=== PATIENT | male | born 1955 | race Caucasian/White ===

== ENCOUNTER 2016-11-04 15:23 | Emergency (ER) | payer MEDICAID ==
--- NOTE | 2016-11-04 15:24 | EDPHY ---
H & P Time Seen by Provider: 11/04/16 15:23 Constitutional: Initial Vital Signs Temperature (C) 36.7 C 11/04/16 15:58 Heart Rate 80 11/04/16 15:58 Respiratory Rate 18 11/04/16 15:58 Blood Pressure 116/80 11/04/16 15:58 O2 Sat (%) 93 11/04/16 15:58 O2 Delivery Mode Room Air Allergies/Adverse Reactions: No Known Allergies Allergy (Verified 11/04/16 16:03) Home Medications: Medication Instructions Recorded Ibuprofen [Motrin (*)] 600 mg PO DAILY PRN 06/29/16 Sertraline HCl [Zoloft 100mg (*)] 100 mg PO DAILY 06/29/16 Medical Decision Making ED Course/Re-evaluation: CHIEF COMPLAINT: Alcohol intoxication. HISTORY OF PRESENT ILLNESS: The patient is a chronic alcoholic arriving by EMS for alcohol intoxication. Patient drinks on a daily basis and obtains whatever alcohol is available. Patient was found in his home lying in his own feces. Patient has had multiple ER visits over the last several years for alcohol- related concerns. Patient denies any injuries denies loss of consciousness denies any recent trauma. Patient denies co-ingestion. Patient denies suicidal or homicidal behavior. REVIEW OF SYSTEMS: A 10 point review of systems was performed and is negative with the exception of the elements mentioned in the history of present illness. PHYSICAL EXAM: General Appearance: Alert, well hydrated, appropriate, and non-toxic appearing. Head: Atraumatic without scalp tenderness or obvious injury Eyes: Pupils equal, round, reactive to light and accommodation, EOMI, no trauma , no injection. Ears: Clear bilaterally, no perforation, normal landmarks Nose: Atraumatic, no rhinorrhea, clear. Throat: There is no erythema or exudates, no lesions, normal tonsils, mucus membranes moist. Neck: Supple, 2+ carotid upstroke, nontender, no lymphadenopathy. Respiratory: No retractions, no distress, no wheezes, and no accessory muscle use. Lungs are clear to auscultation bilaterally. Cardiovascular: Regular rate and rhythm, no murmurs, rubs, or gallops. Bilateral carotid, radial, dorsalis pedis, and posterior tibial pulses intact. Good capillary refill all extremities. Gastrointestinal: Abdomen is soft, nontender, non-distended, no masses, no rebound, no guarding, no peritoneal signs. Musculoskeletal: Normal active ROM of all extremities, atraumatic. Neurological: Somnolent but easily awakened, responsive to questioning. The patient has normal DTRs and non-focal cranial nerves, motor, sensory, and cerebellar exam. Skin: No rashes, good turgor, no nodules on palpation. PAST MEDICAL HISTORY: Anxiety disorder, schizoaffective disorder, liver disease with ascites, Hep X+, alcohol and drug abuse, hypertension. SOCIAL HISTORY: Chronic alcohol abuse. Remote history of IV drug abuse. Lives in an apartment. MEDICAL DECISION MAKING: I serially examined this patient since the patient's arrival here in the emergency department. The patient continues to become more and more sober with each examination. I serially questioned the patient and the patient's story given initially has not changed. The patient still denies any trauma, any head injury, and any illicit drug use. At this point, the patient is walking the department freely and is clinically sober. We're discharging the patient in stable condition; he is able to ambulate appropriately. He declines our recommendation to proceed to the [facility]. Departure - Departure Clinical Impression: Alcohol intoxication Instructions: Abuse of Alcohol (ED) Additional Instructions: 1. Stop abusing alcohol. 2. Go directly to the [facility] if you wish to detox from alcohol. 3. Return to the Emergency Department if you experience seizure, confusion, tremors, feeling faint, or other serious concerns. Referrals: [facility] Detox 24 Hours [Outside] - As per Instructions Report Scribed for: Jacob Tomas Report Scribed by: Rosalina Rose Date of Report: 11/04/16 Time of Report: 15:26
[2016-11-04 16:03] VITALS: BP 116/80; PULSE 80; RESP 18; TEMP 98.1; O2SAT 93
== END 2016-11-04 16:32 | disposition home or self-care (01) ==
LOC: EDUNIT#
DX: F10.129 Alcohol abuse with intoxication, unspecified (principal); I10 Essential (primary) hypertension

== ENCOUNTER 2016-11-05 07:02 | Emergency (ER) | payer MEDICAID ==
[2016-11-05 07:13] VITALS: RESP 18; TEMP 98.2
--- NOTE | 2016-11-05 07:14 | EDPHY ---
H & P Time Seen by Provider: 11/05/16 07:08 HPI/ROS: CHIEF COMPLAINT: Hallucinations HISTORY OF PRESENT ILLNESS: The patient is a 61-year-old man with a history of schizoaffective disorder as well as severe alcohol abuse, cirrhosis and hypertension. He takes Zoloft daily as well as monthly injections of Invega. he states that around midnight last night he began Hallucinating that he was seeing vomit all throughout his house. He also saw it in the ambulance and here in the hospital. He is aware that he is hallucinating these things. he states that he called 911 for anxiety treatment. He denies abdominal pain, vomiting or diarrhea. He was seen here yesterday for alcohol intoxication. Currently he is sober. He is not tachycardic or tremulous. REVIEW OF SYSTEMS: Constitutional: denies: chills, fever, recent illness, recent injury EENTM: denies: blurred vision, double vision, nose congestion Respiratory: denies: cough, shortness of breath Cardiac: denies: chest pain, irregular heart rate, lightheadedness, palpitations Gastrointestinal/Abdominal: denies: abdominal pain, diarrhea, nausea, vomiting, blood streaked stools Genitourinary: denies: dysuria, frequency, hematuria, pain Musculoskeletal: denies: joint pain, muscle pain Skin: denies: lesions, rash, jaundice, bruising Neurological: denies: headache, numbness, paresthesia, tingling, dizziness, weakness Hematologic/Lymphatic: denies: blood clots, easy bleeding, easy bruising Immunologic/allergic: denies: HIV/AIDS, transplant EXAM: GENERAL: Well-appearing, well-nourished and in no acute distress. HEAD: Atraumatic, normocephalic. EYES: Pupils equal round and reactive to light, extraocular movements intact, sclera anicteric, conjunctiva are normal. ENT: TMs normal, nares patent, oropharynx clear without exudates. Moist mucous membranes. NECK: Normal range of motion, supple without lymphadenopathy or JVD. LUNGS: Breath sounds clear to auscultation bilaterally and equal. No wheezes rales or rhonchi. HEART: Regular rate and rhythm without murmurs, rubs or gallops. ABDOMEN: Soft, nontender, normoactive bowel sounds. No guarding, no rebound. No masses appreciated. BACK: No CVA tenderness, no spinal tenderness, step-offs or deformities EXTREMITIES: Normal range of motion, no pitting or edema. No clubbing or cyanosis. NEUROLOGICAL: Cranial nerves II through XII grossly intact. Normal speech, normal gait. 5/5 strength, normal movement in all extremities, normal sensation , no tremors PSYCH: Normal mood, normal affect. SKIN: Warm, dry, normal turgor, no visible rashes or lesions. Source: Patient, EMS, Old records Exam Limitations: Clinical condition - Personal History Tetanus Vaccine Date: < 10 YEARS - Medical/Surgical History Hx Asthma: Yes Hx Chronic Respiratory Disease: No Hx Diabetes: No Hx Cardiac Disease: Yes Hx Renal Disease: No Hx Cirrhosis: Yes Hx Alcoholism: Yes Hx HIV/AIDS: No Hx Splenectomy or Spleen Trauma: No Other PMH: MEDICAL- ANXIETY, LIVER DISEASE, ASCITES, IVDA, HEP C+, alcohol and drug abuse/MENTAL HEALTH, htn,cirrohsis, hx of 3 ruptured discs/back surgs/ tonsillectomy - Family History Significant Family History: Hypertension - Social History Smoking Status: Heavy smoker Alcohol Use: Heavy Drug Use: Marijuana Constitutional: Initial Vital Signs Temperature (C) 36.8 C 11/05/16 07:02 Heart Rate 97 11/05/16 07:02 Respiratory Rate 18 11/05/16 07:02 Blood Pressure 146/105 H 11/05/16 07:02 O2 Sat (%) 92 11/05/16 07:02 O2 Delivery Mode Nasal Cannula Allergies/Adverse Reactions: No Known Allergies Allergy (Verified 11/05/16 07:11) Home Medications: Medication Instructions Recorded Ibuprofen [Motrin (*)] 600 mg PO DAILY PRN 06/29/16 Sertraline HCl [Zoloft 100mg (*)] 100 mg PO DAILY 06/29/16 Medical Decision Making ED Course/Re-evaluation: 7:30 a.m. the patient is asking for Ativan. He is complaining about anxiety. He does not appear anxious. His vital signs are stable. He does not appear to be withdrawing. We will continue to observe. He is declining blood work. He did breathalyzer at 50. 7:50 a.m. the patient got dressed and left. He did use the phone prior to leaving. He declines further workup or testing. I suspect secondary intention of receiving benzodiazepines. Differential Diagnosis: Partial list of the Differential diagnosis considered include but were not limited to; alcohol abuse, intoxication, benzodiazepine abuse and although unlikely based on the history and physical exam, I also considered infection, withdrawal, psychosis, seizures. Departure - Departure Disposition: Home, Routine, Self-Care Clinical Impression: Alcoholism, Anxiety Condition: Fair Instructions: Alcohol Dependence (ED) Referrals: Emely Sanchez MD [Primary Care Provider] - As per Instructions
[2016-11-05 07:37] VITALS: BP 145/105; PULSE 100; O2SAT 93
== END 2016-11-05 07:51 | disposition home or self-care (01) ==
LOC: EDUNIT#
DX: F10.20 Alcohol dependence, uncomplicated (principal); F41.9 Anxiety disorder, unspecified; J45.909 Unspecified asthma, uncomplicated; I10 Essential (primary) hypertension; F17.200 Nicotine dependence, unspecified, uncomplicated

== ENCOUNTER 2016-11-07 06:19 | Emergency (ER) | payer MEDICAID ==
[2016-11-07 06:30] VITALS: RESP 16; TEMP 97.7
--- NOTE | 2016-11-07 06:34 | EDPHY ---
H & P Stated Complaint: Panic attack and hearing voices Source: Patient, EMS - Personal History Current Tetanus/Diphtheria Vaccine: Yes Current Tetanus Diphtheria and Acellular Pertussis (TDAP): Yes Tetanus Vaccine Date: < 10 YEARS - Medical/Surgical History Hx Asthma: Yes Hx Chronic Respiratory Disease: No Hx Diabetes: No Hx Cardiac Disease: Yes Hx Renal Disease: No Hx Cirrhosis: Yes Hx Alcoholism: Yes Hx HIV/AIDS: No Hx Splenectomy or Spleen Trauma: No Other PMH: MEDICAL- ANXIETY, LIVER DISEASE, ASCITES, IVDA, HEP C+, alcohol and drug abuse/MENTAL HEALTH, htn,cirrohsis, hx of 3 ruptured discs/back surgs/ tonsillectomy - Social History Smoking Status: Heavy smoker HPI/ROS: HPI CHIEF COMPLAINT: Anxiety, visual hallucinations HISTORY OF PRESENT ILLNESS: This patient is 61-year-old male significant past medical history for alcoholism daily alcohol abuse, anxiety, schizoaffective disorder, liver disease, hypertension, IV drug use, presents emergency room by EMS feeling very anxious and stating that he is hallucinating at home. Tells me the scene all different kinds of things crawling on his bonilla. Requesting to speak to mental health. He tells me he feels very scared" he denies he denies feeling suicidal. He denies wanting to hurt himself or anybody else. He is specifically requesting to speak to mental health. Past Medical History: Anxiety, schizoaffective, liver disease, hypertension, IV drug use Social History: daily alcohol use, alcoholism, IV drug use, lives locally has an apartment Family History: Noncontributory ROS REVIEW OF SYSTEMS: A comprehensive 10 point review of systems is otherwise negative aside from elements mentioned in the history of present illness. Exam Constitutional appears unkept, disheveled, triage nursing summary reviewed, vital signs reviewed, awake/alert. Eyes normal conjunctivae and sclera, EOMI, PERRLA. HENT normal inspection, atraumatic, moist mucus membranes, no epistaxis, neck supple/ no meningismus, no raccoon eyes. Respiratory clear to auscultation bilaterally, normal breath sounds, no respiratory distress, no wheezing. Cardiovascular rate normal, regular rhythm, no murmur, no edema, distal pulses normal. Gastrointestinal soft, non-tender, no rebound, no guarding, normal bowel sounds, no distension, no pulsatile mass. Genitourinary no CVA tenderness. Musculoskeletal no midline vertebral tenderness, full range of motion, no calf swelling, no tenderness of extremities, no meningismus, good pulses, neurovascularly intact. Skin pink, warm, & dry, no rash, skin atraumatic. Neurologic awake, alert and oriented x 3, AAOx3, moves all 4 extremities equally, motor intact, sensory intact, CN II-XII intact, normal cerebellar, normal vision, normal speech. Psychiatric tearful, anxious Heme/Lymph/Immune no lymphadenopathy. Differential Diagnosis: includes but is not limited to in a particular order, acute anxiety, panic attack, alcoholism, alcohol abuse, alcohol intoxication, schizoaffective disorder Medical Decision Making: this patient had an IV established receive IV fluid bolus 0.5 mg IV Ativan for acute anxiety, we will obtain blood work for Mental health clearance. He has specifically requesting to speak to mental health. Re-evaluation: 0639: Patient is having an IV established at this time. Patient signed over to Dr. Tomas at 7am Shift Change. (Esa Love) Constitutional: Initial Vital Signs Temperature (C) 36.5 C 11/07/16 06:27 Heart Rate 107 H 11/07/16 06:27 Respiratory Rate 16 11/07/16 06:27 Blood Pressure 120/98 H 11/07/16 06:27 O2 Sat (%) 91 L 11/07/16 06:27 O2 Delivery Mode Room Air Allergies/Adverse Reactions: No Known Allergies Allergy (Verified 11/05/16 07:11) Home Medications: Medication Instructions Recorded Ibuprofen [Motrin (*)] 600 mg PO DAILY PRN 06/29/16 Sertraline HCl [Zoloft 100mg (*)] 100 mg PO DAILY 06/29/16 Medical Decision Making ED Course/Re-evaluation: This patient was turned over to al at change of shift. He is clinically sober and able [facility] We will also give him some outpatient psychiatric resources for his anxiety. He is not suicidal he is not homicidal. (Jacob Tomas) - Data Points Laboratory Results: Laboratory Results 11/07/16 06:30 11/07/16 06:30 11/07/16 06:30 WBC 9.54 H 10^3/uL (3.80-9.50) RBC 5.24 10^6/uL (4.40-6.38) Hgb 16.9 g/dL (13.7-17.5) Hct 46.8 % (40.0-51.0) MCV 89.3 fL (81.5-99.8) MCH 32.3 pg (27.9-34.1) MCHC 36.1 g/dL (32.4-36.7) RDW 13.4 % (11.5-15.2) Plt Count 371 10^3/uL (150-400) MPV 9.5 fL (8.7-11.7) Neut % (Auto) 56.7 % (39.3-74.2) Lymph % (Auto) 30.6 % (15.0-45.0) Warren % (Auto) 11.5 % (4.5-13.0) Eos % (Auto) 0.4 L % (0.6-7.6) Baso % (Auto) 0.6 % (0.3-1.7) Nucleat RBC Rel Count 0.0 % (0.0-0.2) Absolute Neuts (auto) 5.40 10^3/uL (1.70-6.50) Absolute Lymphs (auto) 2.92 10^3/uL (1.00-3.00) Absolute Monos (auto) 1.10 H 10^3/uL (0.30-0.80) Absolute Eos (auto) 0.04 10^3/uL (0.03-0.40) Absolute Basos (auto) 0.06 10^3/uL (0.02-0.10) Absolute Nucleated RBC 0.00 10^3/uL (0-0.01) Immature Gran % 0.2 % (0.0-1.1) Immature Gran # 0.02 10^3/uL (0.00-0.10) Sodium 148 H mEq/L (134-144) Potassium 4.0 mEq/L (3.5-5.2) Chloride 106 mEq/L (97-110) Carbon Dioxide 25 mEq/l (22-31) Anion Gap 17 mEq/L (8-16) BUN 11 mg/dL (7-23) Creatinine 0.8 mg/dL (0.7-1.3) Estimated GFR > 60 Glucose 99 mg/dL (70-100) Calcium 9.3 mg/dL (8.5-10.4) Salicylates < 1.0 L mg/dL (2.0-20.0) Acetaminophen < 10 L mcg/mL (10.0-30.0) Ethyl Alcohol 177 H mg/dL (0-10) Medications Given: Discontinued Medications Sodium Chloride (Ns) 1,000 mls @ 0 mls/hr IV ONCE ONE PRN Reason: Wide Open Stop: 11/07/16 06:36 Last Admin: 11/07/16 06:57 Dose: 1,000 mls Lorazepam (Ativan Injection) 1 mg IVP EDNOW ONE Stop: 11/07/16 06:36 Last Admin: 11/07/16 06:57 Dose: 1 mg Departure - Departure Disposition: Home, Routine, Self-Care Clinical Impression: Anxiety attack Alcohol dependence Qualifiers: Substance use status: with intoxication Complication of substance-induced condition: uncomplicated Qualifier Code: (F10.220) Alcohol dependence with intoxication, uncomplicated Condition: Good Instructions: Anxiety (ED), Alcohol Intoxication (ED), Abuse of Alcohol (ED), At-Risk Alcohol Use (ED), Alcohol Dependence (ED), Alcohol Use Disorder (ED) Referrals: Emely Sanchez MD [Primary Care Provider] - As per Instructions
[2016-11-07] MEDS ORDERED: LORazepam 2 MG/ML INJ IVP ONE (06:35)
[2016-11-07] MEDS ORDERED: NS 1,000 ML IV ONE (06:35)
[2016-11-07 06:44] LABS: % IMMATURE GRANULYOCYTES 0.2 % (0.0-1.1); ABSOLUTE IMMATURE GRANULOCYTES 0.02 10^3/uL (0.00-0.10); ADD DIFF? NO; ADD MORPH? NO; ADD SCAN? NO; ATYPICAL LYMPHOCYTE FLAG 0 (0-99); FRAGMENT RBC FLAG 0 (0-99); HEMATOCRIT 46.8 % (40.0-51.0); HEMOGLOBIN 16.9 g/dL (13.7-17.5); LEFT SHIFT FLG 0 (0-99); LIPEMIA HEMOLYSIS FLAG 90 (0-99); MEAN CELL HEMOGLOBIN 32.3 pg (27.9-34.1); MEAN CELL HEMOGLOBIN CONCENTR. 36.1 g/dL (32.4-36.7); MEAN CELL VOLUME 89.3 fL (81.5-99.8); MEAN PLATELET VOLUME 9.5 fL (8.7-11.7); PLATELET CLUMPS FLAG 10 (0-99); PLATELET COUNT 371 10^3/uL (150-400); RED BLOOD CELL COUNT 5.24 10^6/uL (4.40-6.38); RED CELL DISTRIBUTION WIDTH 13.4 % (11.5-15.2)
[2016-11-07 07:06] LABS: ANION GAP 17 mEq/L (8-16); CALCIUM 9.3 mg/dL (8.5-10.4); CARBON DIOXIDE 25 mEq/l (22-31); CHLORIDE 106 mEq/L (97-110); CREATININE 0.8 mg/dL (0.7-1.3); ETHANOL SERUM 177 mg/dL (0-10); GLOMERULAR FILTRATION RATE > 60; GLUCOSE 99 mg/dL (70-100); SALICYLATE < 1.0 mg/dL (2.0-20.0); SODIUM 148 mEq/L (134-144)
[2016-11-07 08:02] VITALS: BP 104/77; PULSE 98; O2SAT 98
== END 2016-11-07 08:23 | disposition home or self-care (01) ==
LOC: EDUNIT# → EEVIPCON 06:19
DX: F41.9 Anxiety disorder, unspecified (principal); F10.220 Alcohol dependence with intoxication, uncomplicated; I10 Essential (primary) hypertension; F17.200 Nicotine dependence, unspecified, uncomplicated
CPT/HCPCS: 96374; G0480

== ENCOUNTER 2016-11-08 00:32 | Emergency (ER) | payer MEDICAID ==
[2016-11-08 00:40] VITALS: TEMP 97.9
--- NOTE | 2016-11-08 01:11 | EDPHY ---
H & P Stated Complaint: ETOH HPI/ROS: HPI CHIEF COMPLAINT: Alcohol intoxication HISTORY OF PRESENT ILLNESS: This patient is a 61-year-old male who arrived very familiar with his significant past medical history for anxiety and alcohol abuse daily. He presents emergency room by EMS for being intoxicated alcohol. Patient called 911 from his private residence stating that he was too intoxicated alcohol to take care of himself. Upon arrival here in the emergency room the patient is intoxicated with alcohol slurring his speech she smells of alcohol. His breath alcohol was 228. He has no complaints. Patient is on an [facility] hold. Past Medical History: Alcoholism, anxiety Past Surgical History: Denies recent surgical history Social History: Daily alcohol use, lives in a private residence apartment by himself Family History: noncontributory ROS REVIEW OF SYSTEMS: A comprehensive 10 point review of systems is otherwise negative aside from elements mentioned in the history of present illness. Exam Constitutional smells of alcohol, intoxicated, triage nursing summary reviewed , vital signs reviewed, awake/alert. Eyes normal conjunctivae and sclera, EOMI, Horizontal beating nystagmus consistent with acute alcohol intoxication HENT normal inspection, atraumatic, moist mucus membranes, no epistaxis, neck supple/ no meningismus, no raccoon eyes. Respiratory clear to auscultation bilaterally, normal breath sounds, no respiratory distress, no wheezing. Cardiovascular rate normal, regular rhythm, no murmur, no edema, distal pulses normal. Gastrointestinal Cirrhotic liver, soft, non-tender, no rebound, no guarding, normal bowel sounds, no distension, no pulsatile mass. Genitourinary no CVA tenderness. Musculoskeletal no midline vertebral tenderness, full range of motion, no calf swelling, no tenderness of extremities, no meningismus, good pulses, neurovascularly intact. Skin pink, warm, & dry, no rash, skin atraumatic. Neurologic awake, alert and oriented x 3, AAOx3, moves all 4 extremities equally, motor intact, sensory intact, CN II-XII intact, normal vision, slurring his speech Psychiatric normal mood/affect. Heme/Lymph/Immune no lymphadenopathy. Differential Diagnosis: Includes but is not limited to in a particular order acute alcohol intoxication, anxiety Medical Decision Making: Patient here has a breath alcohol 228. He is intoxicated. Will monitor him for some further sobriety he is on a [facility] hold. Once sober enough the stable gait be transferred to the [facility] Re-evaluation: 0111: patient ambulated well throughout the emergency room with a steady gait. He is now cleared to go to the [facility] Source: Patient - Personal History Current Tetanus/Diphtheria Vaccine: Yes Current Tetanus Diphtheria and Acellular Pertussis (TDAP): Yes Tetanus Vaccine Date: < 10 YEARS - Medical/Surgical History Hx Asthma: Yes Hx Chronic Respiratory Disease: No Hx Diabetes: No Hx Cardiac Disease: Yes Hx Renal Disease: No Hx Cirrhosis: Yes Hx Alcoholism: Yes Hx HIV/AIDS: No Hx Splenectomy or Spleen Trauma: No Other PMH: MEDICAL- ANXIETY, LIVER DISEASE, ASCITES, IVDA, HEP C+, alcohol and drug abuse/MENTAL HEALTH, htn,cirrohsis, hx of 3 ruptured discs/back surgs/ tonsillectomy - Social History Smoking Status: Heavy smoker Constitutional: Initial Vital Signs Temperature (C) 36.6 C 11/08/16 00:39 Heart Rate 76 11/08/16 00:39 Respiratory Rate 18 11/08/16 00:39 Blood Pressure 121/78 H 11/08/16 00:39 O2 Sat (%) 88 L 11/08/16 00:39 O2 Delivery Mode Room Air O2 (L/minute) 2 Allergies/Adverse Reactions: No Known Allergies Allergy (Verified 11/08/16 00:38) Home Medications: Medication Instructions Recorded Ibuprofen [Motrin (*)] 600 mg PO DAILY PRN 06/29/16 Sertraline HCl [Zoloft 100mg (*)] 100 mg PO DAILY 06/29/16 Departure - Departure Disposition: Home, Routine, Self-Care Clinical Impression: Alcohol abuse Alcohol intoxication Qualifiers: Complication of substance-induced condition: uncomplicated Qualifier Code: ( F10.120) Alcohol abuse with intoxication, uncomplicated Condition: Good
[2016-11-08] MEDS ORDERED: ONDANSETRON DISINTEGRATING 4 MG TAB ONE (01:14)
[2016-11-08] MEDS ORDERED: ONDANSETRON DISINTEGRATING 4 MG TAB PO ONE (01:17)
[2016-11-08] MEDS ORDERED: CHLORDIAZEPOXIDE 25MG PREPK#6 BTL TAKEHOME ONE (01:44)
[2016-11-08 01:55] VITALS: BP 121/73; PULSE 72; RESP 16; O2SAT 97
== END 2016-11-08 01:54 | disposition home or self-care (01) ==
LOC: EDUNIT#
DX: F10.120 Alcohol abuse with intoxication, uncomplicated (principal); J45.909 Unspecified asthma, uncomplicated; I10 Essential (primary) hypertension; F17.200 Nicotine dependence, unspecified, uncomplicated
CPT/HCPCS: 96374

== ENCOUNTER 2016-11-08 07:08 | Emergency (ER) | payer MEDICAID ==
[2016-11-08 07:18] VITALS: TEMP 98.1
[2016-11-08] MEDS ORDERED: NS 1,000 ML IV ONE ×2 (07:31→07:32)
[2016-11-08] MEDS ORDERED: LORazepam 2 MG/ML INJ IVP ONE (07:32)
--- NOTE | 2016-11-08 07:35 | EDPHY ---
H & P Stated Complaint: CP, green vision, FARIAS Time Seen by Provider: 11/08/16 07:28 HPI/ROS: CHIEF COMPLAINT: Withdrawal HISTORY OF PRESENT ILLNESS: Patient is a 61-year-old man who is well known to myself in the department. He has a history of alcoholism and cirrhosis and anxiety. He was seen here last night for intoxication and discharged to the alcohol recovery Center about 4 hours ago. He returns today stating that he thinks he is withdrawing. He is having headache as well as chest discomfort and is tachycardic. He did not receive any Librium at the recovery Center. He has felt this way for several hours. REVIEW OF SYSTEMS: Constitutional: denies: chills, fever, recent illness, recent injury EENTM: denies: blurred vision, double vision, nose congestion Respiratory: denies: cough, shortness of breath Cardiac: See HPI Gastrointestinal/Abdominal: denies: abdominal pain, diarrhea, nausea, vomiting, blood streaked stools Genitourinary: denies: dysuria, frequency, hematuria, pain Musculoskeletal: denies: joint pain, muscle pain Skin: denies: lesions, rash, jaundice, bruising Neurological: denies: headache, numbness, paresthesia, tingling, dizziness, weakness Hematologic/Lymphatic: denies: blood clots, easy bleeding, easy bruising Immunologic/allergic: denies: HIV/AIDS, transplant EXAM: GENERAL: Mild tremors, tachycardia HEAD: Atraumatic, normocephalic. EYES: Pupils equal round and reactive to light, extraocular movements intact, sclera anicteric, conjunctiva are normal. ENT: TMs normal, nares patent, oropharynx clear without exudates. Moist mucous membranes. NECK: Normal range of motion, supple without lymphadenopathy or JVD. LUNGS: Mild wheezing bilaterally. HEART: Regular rate and rhythm without murmurs, rubs or gallops. ABDOMEN: Soft, nontender, normoactive bowel sounds. No guarding, no rebound. No masses appreciated. BACK: No CVA tenderness, no spinal tenderness, step-offs or deformities EXTREMITIES: Normal range of motion, no pitting or edema. No clubbing or cyanosis. NEUROLOGICAL: Cranial nerves II through XII grossly intact. Normal speech, normal gait. 5/5 strength, normal movement in all extremities, normal sensation PSYCH: Normal mood, normal affect. SKIN: Warm, dry, normal turgor, no visible rashes or lesions. Source: Patient Exam Limitations: No limitations - Personal History Current Tetanus Diphtheria and Acellular Pertussis (TDAP): Yes Tetanus Vaccine Date: < 10 YEARS - Medical/Surgical History Hx Asthma: Yes Hx Chronic Respiratory Disease: No Hx Diabetes: No Hx Cardiac Disease: Yes Hx Renal Disease: No Hx Cirrhosis: Yes Hx Alcoholism: Yes Hx HIV/AIDS: No Hx Splenectomy or Spleen Trauma: No Other PMH: MEDICAL- ANXIETY, LIVER DISEASE, ASCITES, IVDA, HEP C+, alcohol and drug abuse/MENTAL HEALTH, htn,cirrohsis, hx of 3 ruptured discs/back surgs/ tonsillectomy - Family History Significant Family History: Hypertension - Social History Smoking Status: Heavy smoker Alcohol Use: Heavy Drug Use: Marijuana Constitutional: Initial Vital Signs Temperature (C) 36.7 C 11/08/16 07:08 Heart Rate 110 H 11/08/16 07:08 Respiratory Rate 20 11/08/16 07:08 Blood Pressure 107/89 H 11/08/16 07:08 O2 Sat (%) 88 L 11/08/16 07:08 O2 Delivery Mode Room Air O2 (L/minute) 4 Allergies/Adverse Reactions: No Known Allergies Allergy (Verified 11/08/16 00:38) Home Medications: Medication Instructions Recorded Ibuprofen [Motrin (*)] 600 mg PO DAILY PRN 06/29/16 Sertraline HCl [Zoloft 100mg (*)] 100 mg PO DAILY 06/29/16 Medical Decision Making - Diagnostics EKG Interpretation: An EKG obtained and was read and documented in trace view. Please see trace view for full reading and report. Sinus tachycardia, similar to previous, no acute ischemic changes Imaging: X-ray: chest x-ray was obtained. I viewed the images myself on the PACS system. My interpretation of the images is: No pneumonia. The radiologist interpretation is COPD. ED Course/Re-evaluation: 8:55 a.m. The patient improved with albuterol. His x-ray is reassuring. Labs pending. 9:15 a.m. the patient's vital signs are stable. He is no longer tachycardic. He feels much better and is eager to go home. I offered a 2nd albuterol treatment but he declines. His lab work is reassuring. Differential Diagnosis: Partial list of the Differential diagnosis considered include but were not limited to; COPD, alcohol withdrawal, acute coronary disease, anxiety and although unlikely based on the history and physical exam, I also considered pneumonia, PE. I discussed these differential diagnoses and the plan with the patient as well as the usual and expected course. The patient understands that the diagnosis is provisional and that in medicine we are not always correct and that further workup is often warranted. Usual and customary warnings were given. All of the patient's questions were answered. The patient was instructed to return to the emergency department should the symptoms at all worsen or return, otherwise to followup with the physician as we discussed. - Data Points Laboratory Results: Laboratory Results 11/08/16 08:19 11/08/16 08:19 11/08/16 08:19 WBC 10.23 H 10^3/uL (3.80-9.50) RBC 4.85 10^6/uL (4.40-6.38) Hgb 15.7 g/dL (13.7-17.5) Hct 43.9 % (40.0-51.0) MCV 90.5 fL (81.5-99.8) MCH 32.4 pg (27.9-34.1) MCHC 35.8 g/dL (32.4-36.7) RDW 13.2 % (11.5-15.2) Plt Count 314 D 10^3/uL (150-400) MPV 9.2 fL (8.7-11.7) Neut % (Auto) 64.6 % (39.3-74.2) Lymph % (Auto) 20.1 % (15.0-45.0) Luna % (Auto) 13.9 H % (4.5-13.0) Eos % (Auto) 0.6 % (0.6-7.6) Baso % (Auto) 0.6 % (0.3-1.7) Nucleat RBC Rel Count 0.0 % (0.0-0.2) Absolute Neuts (auto) 6.61 H 10^3/uL (1.70-6.50) Absolute Lymphs (auto) 2.06 10^3/uL (1.00-3.00) Absolute Monos (auto) 1.42 H 10^3/uL (0.30-0.80) Absolute Eos (auto) 0.06 10^3/uL (0.03-0.40) Absolute Basos (auto) 0.06 10^3/uL (0.02-0.10) Absolute Nucleated RBC 0.00 10^3/uL (0-0.01) Immature Gran % 0.2 % (0.0-1.1) Immature Gran # 0.02 10^3/uL (0.00-0.10) Sodium 145 H mEq/L (134-144) Potassium 3.7 mEq/L (3.5-5.2) Chloride 105 mEq/L (97-110) Carbon Dioxide 23 mEq/l (22-31) Anion Gap 17 H mEq/L (8-16) BUN 13 mg/dL (7-23) Creatinine 0.8 mg/dL (0.7-1.3) Estimated GFR > 60 Glucose 96 mg/dL (70-100) Calcium 9.2 mg/dL (8.5-10.4) Troponin I < 0.012 ng/mL (0-0.034) Medications Given: Discontinued Medications Albuterol Sulfate (Proventil Inh Prepack) 1 mdi TAKEHOME EDNOW ONE Stop: 11/08/16 09:22 Last Admin: 11/08/16 09:43 Dose: 1 mdi Albuterol/Ipratropium (Duoneb) 3 ml IH EDNOW ONE Stop: 11/08/16 07:37 Last Admin: 11/08/16 08:16 Dose: 3 ml Chlordiazepoxide (Librium 25 Mg Prepack#6) 1 btl TAKEHOME EDNOW ONE Stop: 11/08/16 09:22 Last Admin: 11/08/16 09:44 Dose: 1 btl Sodium Chloride (Ns) 1,000 mls @ 0 mls/hr IV ONCE ONE PRN Reason: Wide Open Stop: 11/08/16 07:32 Last Admin: 11/08/16 08:51 Dose: 1,000 mls Sodium Chloride (Ns) 1,000 mls @ 0 mls/hr IV ONCE ONE PRN Reason: Wide Open Stop: 11/08/16 07:33 Last Admin: 11/08/16 09:42 Dose: Not Given Lorazepam (Ativan Injection) 1 mg IVP EDNOW ONE Stop: 11/08/16 07:33 Last Admin: 11/08/16 08:51 Dose: 1 mg Departure - Departure Disposition: Home, Routine, Self-Care Clinical Impression: Alcoholism COPD (chronic obstructive pulmonary disease) Qualifiers: COPD type: chronic bronchitis Chronic bronchitis type: unspecified Qualifier Code: (J42) Unspecified chronic bronchitis Condition: Fair Instructions: Chlordiazepoxide/Clidinium (By mouth), Albuterol (By breathing), COPD (Chronic Obstructive Pulmonary Disease) (ED), Alcohol Withdrawal (ED) Additional Instructions: Return to the [facility] on Librium protocol. Take albuterol as needed. Referrals: Emely Sanchez MD [Primary Care Provider] - As per Instructions
[2016-11-08] MEDS ORDERED: IPRATROPIUM/ALBUTEROL 3 ML DEYVIAL IH ONE (07:36)
--- NOTE | 2016-11-08 07:44 | CPEKG ---
Heart Rate: 100 RR Interval: 600 P-R Interval: 148 QRSD Interval: 96 QT Interval: 356 QTC Interval: 460 P [place]: 70 QRS [place]: 78 T Wave [place]: 43 EKG Severity - OTHERWISE NORMAL ECG - EKG Impression: SINUS TACHYCARDIA EKG Impression: Similar to previous, no acute ischemic changes Electronically Signed By: Mateusz Rivas 08-Nov-2016 07:50:44
[2016-11-08 08:17] VITALS: RESP 18
[2016-11-08 08:29] LABS: % IMMATURE GRANULYOCYTES 0.2 % (0.0-1.1); ABSOLUTE IMMATURE GRANULOCYTES 0.02 10^3/uL (0.00-0.10); ADD DIFF? NO; ADD MORPH? NO; ADD SCAN? NO; ATYPICAL LYMPHOCYTE FLAG 0 (0-99); FRAGMENT RBC FLAG 0 (0-99); HEMATOCRIT 43.9 % (40.0-51.0); HEMOGLOBIN 15.7 g/dL (13.7-17.5); LEFT SHIFT FLG 0 (0-99); LIPEMIA HEMOLYSIS FLAG 90 (0-99); MEAN CELL HEMOGLOBIN 32.4 pg (27.9-34.1); MEAN CELL HEMOGLOBIN CONCENTR. 35.8 g/dL (32.4-36.7); MEAN CELL VOLUME 90.5 fL (81.5-99.8); MEAN PLATELET VOLUME 9.2 fL (8.7-11.7); PLATELET CLUMPS FLAG 10 (0-99); PLATELET COUNT 314 10^3/uL (150-400); RED BLOOD CELL COUNT 4.85 10^6/uL (4.40-6.38); RED CELL DISTRIBUTION WIDTH 13.2 % (11.5-15.2)
--- NOTE | 2016-11-08 08:44 | DX ---
Chest, PA and Lateral History: Chest pain Comparison: September 17, 2016 AP and lateral, September 17, 2016, PA and lateral Findings: Moderately prominent lung volumes and perihilar bronchial wall thickening are again present and consistent consistent with chronic or recurrent airways disease and/or COPD. There is some new t hin linear density at the lower lateral right chest consistent with platter atelectasis or scarring. There is no focal infiltrate or pleural effusion. Heart size and pulmonary vascularity remain normal. There is chronic atherosclerotic calcification of the aortic arch. There is no adenopathy or mass le irena. There is stable prominent osteophyte formation to the left of midline at the thoracolumbar junc tion where there is focal widening of the paraspinal stripe. EKG leads overlie the chest. Impression: COPD/airways disease. No pneumonia or congestive failure.
[2016-11-08 08:55] LABS: ANION GAP 17 mEq/L (8-16); CALCIUM 9.2 mg/dL (8.5-10.4); CARBON DIOXIDE 23 mEq/l (22-31); CHLORIDE 105 mEq/L (97-110); CREATININE 0.8 mg/dL (0.7-1.3); GLOMERULAR FILTRATION RATE > 60; GLUCOSE 96 mg/dL (70-100); POTASSIUM 3.7 mEq/L (3.5-5.2); SODIUM 145 mEq/L (134-144)
[2016-11-08 09:05] LABS: TROPONIN I < 0.012 ng/mL (0-0.034)
[2016-11-08] MEDS ORDERED: CHLORDIAZEPOXIDE 25MG PREPK#6 BTL TAKEHOME ONE (09:21)
[2016-11-08] MEDS ORDERED: ALBUTEROL INH PREPACK MDI TAKEHOME ONE (09:21)
[2016-11-08 09:43] VITALS: BP 130/85; PULSE 90; O2SAT 93
== END 2016-11-08 09:44 | disposition home or self-care (01) ==
LOC: EDUNIT#
DX: F10.20 Alcohol dependence, uncomplicated (principal); J44.9 Chronic obstructive pulmonary disease, unspecified; I10 Essential (primary) hypertension; F17.200 Nicotine dependence, unspecified, uncomplicated
CPT/HCPCS: 96374

== ENCOUNTER 2016-11-10 04:05 | Emergency (ER) | payer MEDICAID ==
[2016-11-10 04:17] VITALS: BP 138/109; PULSE 103; RESP 19; TEMP 98.1; O2SAT 91
--- NOTE | 2016-11-10 05:06 | EDPHY ---
[id number] just prior to arrival and started suddenly. It has been constant ever since. He feels generally anxious in asks for dose of Ativan as this has helped his anxiety in the past. He says he has not had a drink of alcohol in 20 hours and . According to the paramedics he has been transported multiple times over the last several days to this ER in to [facility] for alcohol intoxication and anxiety. He says he has had a series of panic attacks and is not sure what triggered them. He says he is trying to get in touch with his primary care provider but was unable to yesterday. He is receiving a new antipsychotic. He denies any hallucinations. He denies any suicidal ideation or homicidal ideation.. REVIEW OF SYSTEMS Constitutional: No fever, no chills. Eyes: No discharge. ENT: No sore throat. Cardiovascular: No chest pain, no palpitations. Respiratory: No cough, no shortness of breath. Gastrointestinal: No abdominal pain, no vomiting. Genitourinary: No hematuria. Musculoskeletal: No back pain. Skin: No rashes. Neurological: No headache. PMHx: Anxiety, chronic neck and back pain Soc Hx: Housed, chronic alcohol abuse PHYSICAL General Appearance: Alert, no distress Eyes: Pupils equal and round no pallor or injection ENT, Mouth: Mucous membranes moist Respiratory: There are no retractions, lungs are clear to auscultation Cardiovascular: Regular rate and rhythm Gastrointestinal: Abdomen is soft and non-tender, no masses, bowel sounds normal Neurological: A&O, moves all extremities Skin: Warm and dry, no rashes Musculoskeletal: Neck is supple non tender Extremities: symmetrical, full range of motion Psychiatric: Patient is oriented X 3, there is no agitation Source: Patient, EMS - Personal History Current Tetanus/Diphtheria Vaccine: Yes Current Tetanus Diphtheria and Acellular Pertussis (TDAP): Yes Tetanus Vaccine Date: < 10 YEARS - Medical/Surgical History Hx Asthma: Yes Hx Chronic Respiratory Disease: No Hx Diabetes: No Hx Cardiac Disease: Yes Hx Renal Disease: No Hx Cirrhosis: Yes Hx Alcoholism: Yes Hx HIV/AIDS: No Hx Splenectomy or Spleen Trauma: No Other PMH: MEDICAL- ANXIETY, LIVER DISEASE, ASCITES, IVDA, HEP C+, alcohol and drug abuse/MENTAL HEALTH, htn,cirrohsis, hx of 3 ruptured discs/back surgs/ tonsillectomy - Social History Smoking Status: Heavy smoker Constitutional: Initial Vital Signs Temperature (C) 36.7 C 11/10/16 04:15 Heart Rate 103 H 11/10/16 04:15 Respiratory Rate 19 11/10/16 04:15 Blood Pressure 138/109 H 11/10/16 04:15 O2 Sat (%) 91 L 11/10/16 04:15 O2 Delivery Mode Room Air Allergies/Adverse Reactions: No Known Allergies Allergy (Verified 11/10/16 04:14) Home Medications: Medication Instructions Recorded Ibuprofen [Motrin (*)] 600 mg PO DAILY PRN 06/29/16 Sertraline HCl [Zoloft 100mg (*)] 100 mg PO DAILY 06/29/16 Medical Decision Making Differential Diagnosis: This is a 61-year-old male, well known to this emergency room, with history of psychiatric disease including anxiety as well as alcohol abuse who presents brought in by ambulance for anxiety attack. On exam, he has normal vital signs and does not exhibit any tremor or tongue lag suggestive of alcohol withdrawal. Differential diagnosis includes anxiety attack, medication seeking behavior, alcohol withdrawal, alcohol intoxication. In the emergency room the patient was breathalyzer at 0. I explained to him that I cannot give him any Ativan here or as a prescription. He was quite upset by this. He would like to be discharged and he says he can follow up with his primary care provider today. I have left a message for our immigration case worker as well, as I feel that he would benefit from close outpatient follow-up. He does not meet any criteria for a mental health hold at this time. Departure - Departure Disposition: Home, Routine, Self-Care Clinical Impression: Anxiety disorder, Alcoholism Condition: Good Instructions: Anxiety (ED) Referrals: Emely Sanchez MD [Primary Care Provider] - As per Instructions
== END 2016-11-10 04:55 | disposition home or self-care (01) ==
LOC: EDUNIT#
DX: F41.9 Anxiety disorder, unspecified (principal); F10.20 Alcohol dependence, uncomplicated; J45.909 Unspecified asthma, uncomplicated; I10 Essential (primary) hypertension; F17.200 Nicotine dependence, unspecified, uncomplicated

== ENCOUNTER 2016-12-04 19:14 | Emergency (ER) | payer MEDICAID ==
[2016-12-04 19:27] VITALS: TEMP 98.2
[2016-12-04 19:49] LABS: % IMMATURE GRANULYOCYTES 0.3 % (0.0-1.1); ABSOLUTE IMMATURE GRANULOCYTES 0.04 10^3/uL (0.00-0.10); ADD DIFF? NO; ADD MORPH? NO; ADD SCAN? NO; ATYPICAL LYMPHOCYTE FLAG 0 (0-99); FRAGMENT RBC FLAG 0 (0-99); HEMATOCRIT 43.7 % (40.0-51.0); HEMOGLOBIN 15.4 g/dL (13.7-17.5); LEFT SHIFT FLG 0 (0-99); LIPEMIA HEMOLYSIS FLAG 90 (0-99); MEAN CELL HEMOGLOBIN 31.6 pg (27.9-34.1); MEAN CELL HEMOGLOBIN CONCENTR. 35.2 g/dL (32.4-36.7); MEAN CELL VOLUME 89.5 fL (81.5-99.8); MEAN PLATELET VOLUME 9.4 fL (8.7-11.7); PLATELET CLUMPS FLAG 20 (0-99); PLATELET COUNT 304 10^3/uL (150-400); RED BLOOD CELL COUNT 4.88 10^6/uL (4.40-6.38); RED CELL DISTRIBUTION WIDTH 13.2 % (11.5-15.2)
[2016-12-04] MEDS ORDERED: LORazepam 2 MG/ML INJ IVP ONE ×2 (19:49→21:02)
[2016-12-04 20:00] LABS: ALANINE AMINOTRANSFERASE 40 IU/L (21-72); ALBUMIN 4.5 g/dL (3.5-5.0); ALKALINE PHOSPHATASE 72 IU/L (38-126); ANION GAP 15 mEq/L (8-16); ASPARTATE AMINOTRANSFERASE 45 IU/L (17-59); BILIRUBIN,TOTAL 0.6 mg/dL (0.1-1.4); BILIRUBIN-CONJUGATED 0.4 mg/dL (0.0-0.5); BILIRUBIN-UNCONJUGATED 0.2 mg/dL (0.0-1.1); CALCIUM 9.2 mg/dL (8.5-10.4); CARBON DIOXIDE 22 mEq/l (22-31); CHLORIDE 102 mEq/L (97-110); CREATININE 0.7 mg/dL (0.7-1.3); GLOMERULAR FILTRATION RATE > 60; GLUCOSE 76 mg/dL (70-100); POTASSIUM 3.8 mEq/L (3.5-5.2); SODIUM 139 mEq/L (134-144); TOTAL PROTEIN 7.8 g/dL (6.3-8.2)
[2016-12-04 20:12] LABS: TROPONIN I < 0.012 ng/mL (0-0.034)
--- NOTE | 2016-12-04 20:31 | EDPHY ---
H & P Stated Complaint: Hand and feet swelling HPI/ROS: Chief complaint: Swelling in the hands and feet History of present illness: This is a 61-year-old male who presents to the emergency department for evaluation of swelling in the hands and feet. Patient reports the onset of symptoms over the last few days. He states they are slowly worsening. The areas are uncomfortable. He denies precipitating factors. He denies alleviating factors. He also reports some chest discomfort this is been persistent for the last few days. Denies precipitating factors. He denies alleviating factors. Further patient denies fevers, cough, cold symptoms. No pain or swelling in the legs. Review of systems: A 10 point review of systems was obtained and other than described above was negative - Personal History Current Tetanus/Diphtheria Vaccine: Yes Current Tetanus Diphtheria and Acellular Pertussis (TDAP): Yes Tetanus Vaccine Date: < 10 YEARS - Medical/Surgical History Hx Asthma: Yes Hx Chronic Respiratory Disease: No Hx Diabetes: No Hx Cardiac Disease: Yes Hx Renal Disease: No Hx Cirrhosis: Yes Hx Alcoholism: Yes Hx HIV/AIDS: No Hx Splenectomy or Spleen Trauma: No Other PMH: MEDICAL- ANXIETY, LIVER DISEASE, ASCITES, IVDA, HEP C+, alcohol and drug abuse/MENTAL HEALTH, htn,cirrohsis, hx of 3 ruptured discs/back surgs/ tonsillectomy - Social History Smoking Status: Heavy smoker - Physical Exam Exam: General Appearance: Alert, nontoxic. Eyes: Pupils equal and round no pallor or injection. ENT, Mouth: Mucous membranes moist. Respiratory: Diffuse wheezing noted. Cardiovascular: Regular rate and rhythm. Gastrointestinal: Abdomen is soft and non tender, no masses, bowel sounds normal. Neurological: Alert. Strength and sensation intact and symmetrical. Skin: Warm and dry, no rashes. Musculoskeletal: Neck is supple non tender. Extremities are symmetrical, full range of motion. Trace edema to the feet and ankles and hands. Psychiatric: There is no agitation. Constitutional: Initial Vital Signs Temperature (C) 36.8 C 12/04/16 19:25 Heart Rate 83 12/04/16 19:25 Respiratory Rate 16 12/04/16 19:25 Blood Pressure 132/101 H 12/04/16 19:25 O2 Sat (%) 92 12/04/16 19:25 O2 Delivery Mode Nasal Cannula O2 (L/minute) 2 Allergies/Adverse Reactions: lisinopril Allergy (Verified 12/04/16 19:24) Home Medications: Medication Instructions Recorded Ibuprofen [Motrin (*)] 600 mg PO DAILY PRN 06/29/16 Sertraline HCl [Zoloft 100mg (*)] 100 mg PO DAILY 06/29/16 Amlodipine Besylate 12/04/16 Chlorthalidone [Chlorthalidone 25 12/04/16 mg (*)] Labetalol HCl 12/04/16 Medical Decision Making - Diagnostics Imaging: Chest x-ray with questionable lingular infiltrate ED Course/Re-evaluation: Patient seen in conjunction with my secondary supervising physician Dr. Hina Dumont. Patient presents to the emergency department for evaluation of swelling in his hands and feet with mild discomfort. Minimal physical exam findings. Laboratory studies largely unremarkable. He also reports some chest discomfort. Diffuse wheezing is noted. He is given a DuoNeb with improvement in symptoms. This time I do not appreciate need for inpatient management. Patient will be discharged home. Home care is discussed. He is asked to follow up with primary care doctor for recheck. Differential Diagnosis: Included but not limited to congestive heart failure, renal failure, liver failure, cardiac dysrhythmia, ACS, pulmonary infections - Data Points Laboratory Results: Laboratory Results 12/04/16 19:40 12/04/16 19:40 12/04/16 12/04/16 19:40 19:40 WBC 12.84 10^3/uL H 10^3/uL (3.80-9.50) RBC 4.88 10^6/uL 10^6/uL (4.40-6.38) Hgb 15.4 g/dL g/dL (13.7-17.5) Hct 43.7 % % (40.0-51.0) MCV 89.5 fL fL (81.5-99.8) MCH 31.6 pg pg (27.9-34.1) MCHC 35.2 g/dL g/dL (32.4-36.7) RDW 13.2 % % (11.5-15.2) Plt Count 304 10^3/uL 10^3/uL (150-400) MPV 9.4 fL fL (8.7-11.7) Neut % (Auto) 66.7 % % (39.3-74.2) Lymph % (Auto) 22.5 % % (15.0-45.0) [place] % (Auto) 9.4 % % (4.5-13.0) Eos % (Auto) 0.6 % % (0.6-7.6) Baso % (Auto) 0.5 % % (0.3-1.7) Nucleat RBC Rel Count 0.0 % % (0.0-0.2) Absolute Neuts (auto) 8.55 10^3/uL H 10^3/uL (1.70-6.50) Absolute Lymphs (auto) 2.89 10^3/uL 10^3/uL (1.00-3.00) Absolute Monos (auto) 1.21 10^3/uL H 10^3/uL (0.30-0.80) Absolute Eos (auto) 0.08 10^3/uL 10^3/uL (0.03-0.40) Absolute Basos (auto) 0.07 10^3/uL 10^3/uL (0.02-0.10) Absolute Nucleated RBC 0.00 10^3/uL 10^3/uL (0-0.01) Immature Gran % 0.3 % % (0.0-1.1) Immature Gran # 0.04 10^3/uL 10^3/uL (0.00-0.10) Sodium 139 mEq/L mEq/L (134-144) Potassium 3.8 mEq/L mEq/L (3.5-5.2) Chloride 102 mEq/L mEq/L (97-110) Carbon Dioxide 22 mEq/l mEq/l (22-31) Anion Gap 15 mEq/L mEq/L (8-16) BUN 12 mg/dL mg/dL (7-23) Creatinine 0.7 mg/dL mg/dL (0.7-1.3) Estimated GFR > 60 Glucose 76 mg/dL mg/dL (70-100) Calcium 9.2 mg/dL mg/dL (8.5-10.4) Total Bilirubin 0.6 mg/dL mg/dL (0.1-1.4) Conjugated Bilirubin 0.4 mg/dL mg/dL (0.0-0.5) Unconjugated Bilirubin 0.2 mg/dL mg/dL (0.0-1.1) AST 45 IU/L IU/L (17-59) ALT 40 IU/L IU/L (21-72) Alkaline Phosphatase 72 IU/L IU/L (38-126) Troponin I < 0.012 ng/mL ng/mL (0-0.034) NT-Pro-B Natriuret Pep 188 pg/mL H pg/mL (0-125) Total Protein 7.8 g/dL g/dL (6.3-8.2) Albumin 4.5 g/dL g/dL (3.5-5.0) Medications Given: Discontinued Medications Albuterol Sulfate (Proventil Inh Prepack) 1 mdi TAKEHOME EDNOW ONE Stop: 12/04/16 22:06 Last Admin: 12/04/16 22:09 Dose: 1 mdi Albuterol/Ipratropium (Duoneb) 3 ml IH EDNOW ONE Stop: 12/04/16 21:30 Last Admin: 12/04/16 21:34 Dose: 3 ml Lorazepam (Ativan Injection) 1 mg IVP EDNOW ONE Stop: 12/04/16 19:50 Last Admin: 12/04/16 19:54 Dose: 1 mg Lorazepam (Ativan Injection) 1 mg IVP ONCE ONE Stop: 12/04/16 21:03 Last Admin: 12/04/16 21:02 Dose: 0.5 mg Departure - Departure Disposition: Home, Routine, Self-Care Clinical Impression: Hand edema Leg edema Qualifiers: Laterality: bilateral Qualified Code(s): R60.0 - Localized edema Condition: Good Instructions: Leg Edema (ED) Additional Instructions: Follow-up with your primary care doctor this week for recheck If symptoms worsen or new symptoms develop return to the emergency department for recheck Referrals: Patient,NotPresent [Unknown] - As per Instructions [facility],. [Clinic] - As per Instructions
[2016-12-04] MEDS ORDERED: LORazepam 2 MG/ML INJ ONE (20:59)
--- NOTE | 2016-12-04 21:01 | CPEKG ---
Heart Rate: 98 RR Interval: 612 P-R Interval: 140 QRSD Interval: 92 QT Interval: 360 QTC Interval: 460 P [place]opold: 80 QRS [place]opold: 81 T Wave [place]: 42 EKG Severity - OTHERWISE NORMAL ECG - EKG Impression: SINUS RHYTHM EKG Impression: BORDERLINE RIGHT AXIS DEVIATION Electronically Signed By: mAerica Moser 04-Dec-2016 21:21:59
[2016-12-04] MEDS ORDERED: IPRATROPIUM/ALBUTEROL 3 ML DEYVIAL IH ONE (21:29)
[2016-12-04 22:00] VITALS: BP 152/100; PULSE 87; RESP 20; O2SAT 95
[2016-12-04] MEDS ORDERED: ALBUTEROL INH PREPACK MDI TAKEHOME ONE (22:05)
--- NOTE | 2016-12-05 04:45 | CPEKG ---
Heart Rate: 78 RR Interval: 769 P-R Interval: 160 QRSD Interval: 106 QT Interval: 404 QTC Interval: 461 P [place]: 79 QRS [place]: 74 T Wave [place]: 50 EKG Severity - NORMAL ECG - EKG Impression: SINUS RHYTHM Preliminary Awaiting MD Review
== END 2016-12-04 22:25 | disposition home or self-care (01) ==
LOC: EDUNIT#
DX: R60.0 Localized edema (principal); J45.909 Unspecified asthma, uncomplicated; I10 Essential (primary) hypertension; F17.200 Nicotine dependence, unspecified, uncomplicated
CPT/HCPCS: 96374

== ENCOUNTER 2016-12-05 02:02 | Emergency (ER) | payer MEDICAID ==
[2016-12-05 02:10] VITALS: RESP 18; TEMP 97.9
--- NOTE | 2016-12-05 02:11 | EDPHY ---
H & P HPI/ROS: HPI Hand swelling, vomiting. 61-year-old male. By ambulance. He is very familiar to our emergency department. He was just seen here in the emergency department 3 hours ago. At that time he had complaint of swelling of his hands and feet. He had an extensive workup done at that time. His EKG was unremarkable. His blood work including troponin, lipase, electrolytes, liver function tests and BMP were unremarkable. His chest x-ray was read as a possible early lingular and pneumonia. He was not discharged initially with antibiotics but a prescription for doxycycline was called in for him. He is back now complaining that he is feeling nauseous tried to drink some water and vomited. 1 episode of nonbilious , nonbloody vomiting. He complains of continued swelling in his hands. ROS: Constitutional: No fever, no chills. As above. Eyes: No discharge. No changes in vision. ENT: No sore throat. No nasal congestion or rhinorrhea. Respiratory: No cough. No shortness of breath. Cardiac: No chest pain, no palpitations. Gastrointestinal: No abdominal pain, as above, no diarrhea. Genitourinary: No hematuria. No dysuria or increased frequency with urination. Musculoskeletal: No back pain. No neck pain. No myalgias or arthralgias. Skin: No rashes. Neurological: No headache. No focal weakness or altered sensation. Past medical history: Anxiety, liver disease, ascites, IV drug abuse, hepatitis -C, hypertension, cirrhosis, back surgeries, tonsillectomy, psychiatric illness. Social history: Smoker. Lives in an apartment. As above. Physical Exam: General Appearance: Alert, no distress. This patient is responding to questions appropriately and in full sentences. This patient appears well- hydrated and well-nourished. Eyes: Pupils equal and round no pallor or injection. No lid edema, erythema or injection. Respiratory: There are no retractions, lungs are clear to auscultation with good air movement bilaterally. Cardiovascular: Regular rate and rhythm. No murmur. Gastrointestinal: Abdomen is soft and nontender, no masses, bowel sounds normal. No focal tenderness at McBurney's point. No Kendrick sign. Neurological: Motor sensory function is grossly intact. Cranial nerves are normal. Gait is normal. Skin: Warm and dry, no rashes. Musculoskeletal: Neck is supple and nontender. Extremities are symmetrical. All joints range without pain or impingement. Psychiatric: No agitation. No depression. Database: EKG: EKG time is 2:22 a.m.; EKG shows a narrow complex normal sinus rhythm with a ventricular rate of 76. The MA, QRS, QT intervals are within normal limits. There are no ST-T wave changes indicative of ischemic or injury pattern. No evidence of right heart strain. Interpreted by me. Imaging: Procedures: Emergency department course: EKG performed. Vital signs reviewed. Baseline. He was given 12.5 mg of oral Phenergan and 4 mg of oral Zofran for his nausea. I discussed the results of his x-rays and the need for him to be on an antibiotic. Poor compliance reasons and duration of treatment I feel that Levaquin is best suited for him. He was initially discharged on doxycycline alone. I feel this would be adequate if combined with a beta-lactam. He was given 750 mg of oral Levaquin here. He will be prescribed an additional 5 days for treatment of pneumonia. He feels comfortable going home now. He is tolerating oral fluids. Follow-up and return to emergency department precautions reviewed. All of his questions were answered. He was discharged in good condition. Differential Diagnosis: The differential diagnosis on this patient includes but is not limited to possible pneumonia, vomiting, anxiety. Acute coronary syndrome, sepsis, congestive heart failure exacerbation unlikely. This represents a partial list of diagnoses considered. These considerations are based on history, physical exam, past history, reassessment and diagnostic testing. Smoking Status: Heavy smoker Constitutional: Initial Vital Signs Temperature (C) 36.6 C 12/05/16 02:07 Heart Rate 91 12/05/16 02:07 Respiratory Rate 18 12/05/16 02:07 Blood Pressure 159/111 H 12/05/16 02:07 O2 Sat (%) 91 L 12/05/16 02:07 O2 Delivery Mode Room Air Allergies/Adverse Reactions: lisinopril Allergy (Verified 12/04/16 19:24) Home Medications: Medication Instructions Recorded Ibuprofen [Motrin (*)] 600 mg PO DAILY PRN 06/29/16 Sertraline HCl [Zoloft 100mg (*)] 100 mg PO DAILY 06/29/16 Amlodipine Besylate 12/04/16 Chlorthalidone [Chlorthalidone 25 12/04/16 mg (*)] Labetalol HCl 12/04/16 Ondansetron Odt [Zofran Odt 4 mg 4 mg PO Q4PRN PRN #10 tab 12/05/16 (*)] levOFLOXACIN [levAQUIN (*)] 750 mg PO DAILY #5 tab 12/05/16 Medical Decision Making - Data Points Medications Given: Discontinued Medications Ondansetron HCl (Zofran Odt) 4 mg PO EDNOW ONE Stop: 12/05/16 02:17 Last Admin: 12/05/16 02:19 Dose: 4 mg Promethazine HCl (Phenergan) 12.5 mg PO EDNOW ONE Stop: 12/05/16 02:18 Last Admin: 12/05/16 02:19 Dose: 12.5 mg Departure - Departure Disposition: Home, Routine, Self-Care Clinical Impression: Vomiting, Pneumonia Condition: Good Instructions: Acute Nausea and Vomiting (ED), Pneumonia (ED) Additional Instructions: Read and follow provided instructions. Follow-up with your primary care physician in 1-2 days for re-evaluation. Take Levaquin antibiotic as prescribed through entire course of treatment. Return to the emergency department for worsening symptoms or other serious concerns. Referrals: Patient,NotPresent [Unknown] - As per Instructions Prescriptions: levOFLOXACIN [levAQUIN (*)] 750 mg PO DAILY #5 tab Ondansetron Odt [Zofran Odt 4 mg (*)] 4 mg PO Q4PRN PRN #10 tab PRN Reason: For Nausea & Vomiting
[2016-12-05] MEDS ORDERED: ONDANSETRON DISINTEGRATING 4 MG TAB PO ONE (02:16)
[2016-12-05] MEDS ORDERED: PROMETHAZINE HCL 25 MG TAB ONE (02:16)
[2016-12-05] MEDS ORDERED: PROMETHAZINE HCL 25 MG TAB PO ONE (02:17)
[2016-12-05] MEDS ORDERED: ONDANSETRON DISINTEGRATING 4 MG TAB ONE (02:17)
--- NOTE | 2016-12-05 02:24 | CPEKG ---
Heart Rate: 76 RR Interval: 789 P-R Interval: 152 QRSD Interval: 96 QT Interval: 400 QTC Interval: 450 P [place]: 70 QRS [place]: 72 T Wave [place]: 46 EKG Severity - NORMAL ECG - EKG Impression: SINUS RHYTHM Electronically Signed By: Viktor Pinto 05-Dec-2016 02:37:40
[2016-12-05] MEDS ORDERED: ONDANSETRON 4MG PREPACK#2 BTL TAKEHOME ONE (02:43)
[2016-12-05 02:48] VITALS: BP 153/95; PULSE 86; O2SAT 94
== END 2016-12-05 02:48 | disposition home or self-care (01) ==
LOC: EDUNIT#
DX: R11.10 Vomiting, unspecified (principal); J18.9 Pneumonia, unspecified organism; I10 Essential (primary) hypertension; F17.200 Nicotine dependence, unspecified, uncomplicated

== ENCOUNTER 2017-01-05 06:09 | Emergency (ER) | payer MEDICAID ==
[2017-01-05] MEDS ORDERED: NS 1,000 ML IV ONE (06:12)
[2017-01-05 06:18] VITALS: RESP 18
--- NOTE | 2017-01-05 06:20 | EDPHY ---
H & P Source: Patient, EMS - Personal History Tetanus Vaccine Date: < 10 YEARS - Medical/Surgical History Hx Asthma: Yes Hx Chronic Respiratory Disease: No Hx Diabetes: No Hx Cardiac Disease: Yes Hx Renal Disease: No Hx Cirrhosis: Yes Hx Alcoholism: Yes Hx HIV/AIDS: No Hx Splenectomy or Spleen Trauma: No Other PMH: MEDICAL- ANXIETY, LIVER DISEASE, ASCITES, IVDA, HEP C+, alcohol and drug abuse/MENTAL HEALTH, htn,cirrohsis, hx of 3 ruptured discs/back surgs/ tonsillectomy - Social History Smoking Status: Heavy smoker HPI/ROS: HPI CHIEF COMPLAINT: Anxiety, abdominal distension, alcohol withdraw HISTORY OF PRESENT ILLNESS: This patient very pleasant 61-year-old very well known to the emergency room and myself, significant past medical history for daily alcohol use, alcohol abuse, alcohol withdrawal, and anxiety. Presents to the emergency room with stating that he is anxious, having worsening abdominal distention he is concerned that he may have ascites, never had a history of ascites. He tells me that he got very anxious this evening, no chest pain no shortness of breath. Feels as if his abdomen is large. He tells me his last drink was yesterday. This patient was brought in by EMS. Past Medical History: Daily alcohol use, alcoholism Past Surgical History: No recent surgical history Social History: Daily alcohol use, denies tobacco or drugs, lives independently apartment alone. Family History: Noncontributory ROS REVIEW OF SYSTEMS: A comprehensive 10 point review of systems is otherwise negative aside from elements mentioned in the history of present illness. Exam Constitutional appears nontoxic, no evidence of significant alcohol withdrawal , triage nursing summary reviewed, vital signs reviewed, awake/alert. Eyes normal conjunctivae and sclera, EOMI, PERRLA. HENT normal inspection, atraumatic, moist mucus membranes, no epistaxis, neck supple/ no meningismus, no raccoon eyes. Respiratory clear to auscultation bilaterally, normal breath sounds, no respiratory distress, no wheezing. Cardiovascular rate normal, regular rhythm, no murmur, no edema, distal pulses normal. Gastrointestinal rather large abdomen is no fluid wave, nontender, nondistended soft, no rebound, no guarding, normal bowel sounds, no distension, no pulsatile mass. Genitourinary no CVA tenderness. Musculoskeletal no midline vertebral tenderness, full range of motion, no calf swelling, no tenderness of extremities, no meningismus, good pulses, neurovascularly intact. Skin pink, warm, & dry, no rash, skin atraumatic. Neurologic awake, alert and oriented x 3, AAOx3, moves all 4 extremities equally, motor intact, sensory intact, CN II-XII intact, normal cerebellar, normal vision, normal speech. Psychiatric normal mood/affect. Heme/Lymph/Immune no lymphadenopathy. Differential Diagnosis: Includes but is not limited to in a particular order acute anxiety, alcohol withdrawal, bowel obstruction, dehydration, electrolyte disturbance Medical Decision Making: plan for this patient is to be placed on monitor IV established, gentle IV fluid hydration, KUB x-ray to rule out abnormal bowel gas pattern however he is nontender on exam check blood work including alcohol level. At this time there is no evidence of acute alcohol withdrawal. Re-evaluation: 0741: This patient is informed me that if he does not get any Ativan he would like to leave the emergency room. I explained him that I do not see a reason given Ativan is not going through acute alcohol withdrawal his vital signs are stable he is not tremulous. In fact his alcohol level is still elevated in his blood stream. He is not very happy with this. He is requesting be discharged. Given that his blood work is reassuring he is not vomiting his vital signs are stable is abdomen is soft. No evidence of ascites. No evidence of acute abdominal process at this time. I will allow her to be discharged from the emergency room. I did give him return precautions he understands return if he feels worse worsening abdominal pain, fever, vomiting. He understands. Blood work, vital signs, reviewed. Re-evaluation of the patient this time abdomen soft nontender no guarding or peritoneal signs. (Esa Love) Constitutional: Initial Vital Signs Temperature (C) 37 C 01/05/17 06:14 Heart Rate 94 01/05/17 06:14 Respiratory Rate 18 01/05/17 06:14 Blood Pressure 130/101 H 01/05/17 06:14 O2 Sat (%) 93 01/05/17 06:14 O2 Delivery Mode Room Air Allergies/Adverse Reactions: lisinopril Allergy (Verified 01/05/17 06:18) Home Medications: Medication Instructions Recorded Ibuprofen [Motrin (*)] 600 mg PO DAILY PRN 09/28/16 Sertraline HCl [Zoloft 100mg (*)] 100 mg PO DAILY 06/29/16 Amlodipine Besylate 12/04/16 Chlorthalidone [Chlorthalidone 25 12/04/16 mg (*)] Labetalol HCl 12/04/16 Ondansetron Odt [Zofran Odt 4 mg 4 mg PO Q4PRN PRN #10 tab 12/05/16 (*)] Medical Decision Making - Diagnostics Imaging: Imaging Impressions Abdomen X-Ray 01/05/17 06:13 Impression: 1. No significant abnormality within the abdomen. ED Course/Re-evaluation: I was not involved in this patient's care other than to review his abdominal x- ray, which does not show any acute abnormalities. (Hina Dumont) - Data Points Laboratory Results: Laboratory Results 01/05/17 06:45 01/05/17 06:45 01/05/17 01/05/17 01/05/17 06:45 06:45 06:45 WBC 9.67 10^3/uL H 10^3/uL (3.80-9.50) RBC 4.99 10^6/uL 10^6/uL (4.40-6.38) Hgb 15.7 g/dL g/dL (13.7-17.5) Hct 44.2 % % (40.0-51.0) MCV 88.6 fL fL (81.5-99.8) MCH 31.5 pg pg (27.9-34.1) MCHC 35.5 g/dL g/dL (32.4-36.7) RDW 13.1 % % (11.5-15.2) Plt Count 261 10^3/uL 10^3/uL (150-400) MPV 9.4 fL fL (8.7-11.7) Neut % (Auto) 62.0 % % (39.3-74.2) Lymph % (Auto) 22.6 % % (15.0-45.0) [place] % (Auto) 12.3 % % (4.5-13.0) Eos % (Auto) 2.0 % % (0.6-7.6) Baso % (Auto) 0.7 % % (0.3-1.7) Nucleat RBC Rel Count 0.0 % % (0.0-0.2) Absolute Neuts (auto) 5.99 10^3/uL 10^3/uL (1.70-6.50) Absolute Lymphs (auto) 2.19 10^3/uL 10^3/uL (1.00-3.00) Absolute Monos (auto) 1.19 10^3/uL H 10^3/uL (0.30-0.80) Absolute Eos (auto) 0.19 10^3/uL 10^3/uL (0.03-0.40) Absolute Basos (auto) 0.07 10^3/uL 10^3/uL (0.02-0.10) Absolute Nucleated RBC 0.00 10^3/uL 10^3/uL (0-0.01) Immature Gran % 0.4 % % (0.0-1.1) Immature Gran # 0.04 10^3/uL 10^3/uL (0.00-0.10) PT 12.6 SEC SEC (12.0-15.0) INR 0.95 (0.83-1.16) APTT 22.9 SEC L SEC (23.0-38.0) Sodium 139 mEq/L mEq/L (134-144) Potassium 3.4 mEq/L L mEq/L (3.5-5.2) Chloride 99 mEq/L mEq/L (97-110) Carbon Dioxide 30 mEq/l mEq/l (22-31) Anion Gap 10 mEq/L mEq/L (8-16) BUN 18 mg/dL mg/dL (7-23) Creatinine 0.8 mg/dL mg/dL (0.7-1.3) Estimated GFR > 60 Glucose 112 mg/dL H mg/dL (70-100) Calcium 9.5 mg/dL mg/dL (8.5-10.4) Total Bilirubin 0.5 mg/dL mg/dL (0.1-1.4) Conjugated Bilirubin 0.5 mg/dL mg/dL (0.0-0.5) Unconjugated Bilirubin 0.0 mg/dL mg/dL (0.0-1.1) AST 37 IU/L IU/L (17-59) ALT 35 IU/L IU/L (21-72) Alkaline Phosphatase 75 IU/L IU/L (38-126) Total Protein 7.1 g/dL g/dL (6.3-8.2) Albumin 4.2 g/dL g/dL (3.5-5.0) Lipase 826.0 IU/L H IU/L (23-300) Ethyl Alcohol 86 mg/dL H mg/dL (0-10) Medications Given: Discontinued Medications Sodium Chloride (Ns) 1,000 mls @ 0 mls/hr IV ONCE ONE PRN Reason: Wide Open Stop: 01/05/17 06:13 Last Admin: 01/05/17 06:47 Dose: 1,000 mls Departure - Departure Disposition: Home, Routine, Self-Care Clinical Impression: Anxiety Alcohol intoxication Qualifiers: Complication of substance-induced condition: uncomplicated Qualified Code(s): F10.120 - Alcohol abuse with intoxication, uncomplicated Condition: Good Instructions: Alcohol Intoxication (ED), Anxiety (ED) Referrals: Emely Sanchez MD [Primary Care Provider] - As per Instructions
[2017-01-05 06:51] LABS: % IMMATURE GRANULYOCYTES 0.4 % (0.0-1.1); ABSOLUTE IMMATURE GRANULOCYTES 0.04 10^3/uL (0.00-0.10); ADD DIFF? NO; ADD MORPH? NO; ADD SCAN? NO; ATYPICAL LYMPHOCYTE FLAG 0 (0-99); FRAGMENT RBC FLAG 0 (0-99); HEMATOCRIT 44.2 % (40.0-51.0); HEMOGLOBIN 15.7 g/dL (13.7-17.5); LEFT SHIFT FLG 0 (0-99); LIPEMIA HEMOLYSIS FLAG 90 (0-99); MEAN CELL HEMOGLOBIN 31.5 pg (27.9-34.1); MEAN CELL HEMOGLOBIN CONCENTR. 35.5 g/dL (32.4-36.7); MEAN CELL VOLUME 88.6 fL (81.5-99.8); MEAN PLATELET VOLUME 9.4 fL (8.7-11.7); PLATELET CLUMPS FLAG 0 (0-99); PLATELET COUNT 261 10^3/uL (150-400); RED BLOOD CELL COUNT 4.99 10^6/uL (4.40-6.38); RED CELL DISTRIBUTION WIDTH 13.1 % (11.5-15.2)
[2017-01-05 06:59] LABS: INR 0.95 (0.83-1.16); PROTIME(PATIENT) 12.6 SEC (12.0-15.0)
[2017-01-05 07:00] LABS: APTT 22.9 SEC (23.0-38.0)
[2017-01-05 07:18] LABS: ALANINE AMINOTRANSFERASE 35 IU/L (21-72); ALBUMIN 4.2 g/dL (3.5-5.0); ALKALINE PHOSPHATASE 75 IU/L (38-126); ANION GAP 10 mEq/L (8-16); ASPARTATE AMINOTRANSFERASE 37 IU/L (17-59); BILIRUBIN,TOTAL 0.5 mg/dL (0.1-1.4); BILIRUBIN-CONJUGATED 0.5 mg/dL (0.0-0.5); CALCIUM 9.5 mg/dL (8.5-10.4); CARBON DIOXIDE 30 mEq/l (22-31); CHLORIDE 99 mEq/L (97-110); CREATININE 0.8 mg/dL (0.7-1.3); ETHANOL SERUM 86 mg/dL (0-10); GLOMERULAR FILTRATION RATE > 60; GLUCOSE 112 mg/dL (70-100); POTASSIUM 3.4 mEq/L (3.5-5.2); SODIUM 139 mEq/L (134-144); TOTAL PROTEIN 7.1 g/dL (6.3-8.2)
[2017-01-05 08:00] VITALS: BP 156/87; PULSE 88; TEMP 97.4; O2SAT 92
== END 2017-01-05 07:57 | disposition home or self-care (01) ==
LOC: EDUNIT#
DX: F41.9 Anxiety disorder, unspecified (principal); F10.120 Alcohol abuse with intoxication, uncomplicated; I10 Essential (primary) hypertension; J45.909 Unspecified asthma, uncomplicated; F17.200 Nicotine dependence, unspecified, uncomplicated
CPT/HCPCS: G0480

== ENCOUNTER 2017-01-06 01:37 | Emergency (ER) | payer MEDICAID ==
--- NOTE | 2017-01-06 01:52 | EDPHY ---
H & P Stated Complaint: detoxing from ETOH, anxiety, prostate hurts, SOB HPI/ROS: HPI CHIEF COMPLAINT: Anxiety, alcohol withdrawal HISTORY OF PRESENT ILLNESS: This patient very pleasant 61-year-old male significant past medical history for daily alcohol use alcohol abuse, I am very familiar with him and seen him multiple times in the emergency room I did see him earlier in the morning. At that time he was still intoxicated with alcohol complaining anxiety. He was discharged from the emergency room he went to the [facility]. He did take 2 doses of Librium at the [facility]. Tells me that he checked himself out of the arc this evening to come back to the emergency room because he is anxious and feels like he is going to worsening alcohol withdrawal. He tells me feels very anxious, nauseous. Denies chest pain. Of note upon arrival to the emergency room is noted he is tachycardic to 130s, tachypneic the 30s and he is tremulous. He is not seeing or hearing anything. Past Medical History: Daily alcohol use, alcohol abuse, sciatica Past Surgical History: no recent surgical history Social History: Drinks alcohol daily last drink was sometime yesterday patient is unsure. Family History: Noncontributory ROS REVIEW OF SYSTEMS: A comprehensive 10 point review of systems is otherwise negative aside from elements mentioned in the history of present illness. Exam Constitutional appears nontoxic triage nursing summary reviewed, vital signs reviewed, awake/alert. vital signs have been reviewed heart rate 130, respiratory rate 30 Eyes normal conjunctivae and sclera, EOMI, PERRLA. HENT normal inspection, atraumatic, moist mucus membranes, no epistaxis, neck supple/ no meningismus, no raccoon eyes. Respiratory clear to auscultation bilaterally, normal breath sounds, no respiratory distress, no wheezing. Cardiovascular rate normal, regular rhythm, no murmur, no edema, distal pulses normal. Gastrointestinal soft, non-tender, no rebound, no guarding, normal bowel sounds, no distension, no pulsatile mass. Genitourinary no CVA tenderness. Musculoskeletal no midline vertebral tenderness, full range of motion, no calf swelling, no tenderness of extremities, no meningismus, good pulses, neurovascularly intact. Skin not diaphoretic, pink, warm, & dry, no rash, skin atraumatic. Neurologic awake, alert and oriented x 3, AAOx3, moves all 4 extremities equally, motor intact, sensory intact, CN II-XII intact, normal cerebellar, normal vision, normal speech. Psychiatric normal mood/affect. Heme/Lymph/Immune no lymphadenopathy. Differential Diagnosis: includes but is not limited to in a particular order: Alcohol withdrawal, acute anxiety, electrolyte disturbance, dehydration Medical Decision Making: Plan for this patient he is extremely hard IV stick and often requires multiple attempts to start an IV in his neck, will attempt p. o. Ativan p. o. Librium and p.o. fluids at this time. He is not actively vomiting. Re-evaluation: 0250AM: Re-examination at this time patient resting comfortably feels better after Librium p.o. Ativan. Drinking fluids. No vomiting. 0423AM: Re-examination patient is sleeping here in the emergency room. No vomiting. No longer tachycardic. Not tremulous agreeable for discharge. He feels much better after 25 mg p.o. Librium and Ativan. He is drinking fluids fine. No evidence of significant acute alcohol draw at this time. We will allow him to go back to the arc Source: Patient - Personal History Current Tetanus/Diphtheria Vaccine: Unsure Current Tetanus Diphtheria and Acellular Pertussis (TDAP): Unsure Tetanus Vaccine Date: < 10 YEARS - Medical/Surgical History Hx Asthma: Yes Hx Chronic Respiratory Disease: No Hx Diabetes: No Hx Cardiac Disease: Yes Hx Renal Disease: No Hx Cirrhosis: Yes Hx Alcoholism: Yes Hx HIV/AIDS: No Hx Splenectomy or Spleen Trauma: No Other PMH: MEDICAL- ANXIETY, LIVER DISEASE, ASCITES, IVDA, HEP C+, alcohol and drug abuse/MENTAL HEALTH, htn,cirrohsis, hx of 3 ruptured discs/back surgs/ tonsillectomy - Social History Smoking Status: Heavy smoker Constitutional: Initial Vital Signs Temperature (C) 36.4 C 01/06/17 01:42 Heart Rate 121 H 01/06/17 01:42 Respiratory Rate 30 H 01/06/17 01:42 Blood Pressure 131/113 H 01/06/17 01:42 O2 Sat (%) 93 01/06/17 01:42 O2 Delivery Mode Room Air Allergies/Adverse Reactions: lisinopril Allergy (Verified 01/06/17 01:41) Home Medications: Medication Instructions Recorded Ibuprofen [Motrin (*)] 600 mg PO DAILY PRN 06/29/16 Sertraline HCl [Zoloft 100mg (*)] 100 mg PO DAILY 06/29/16 Amlodipine Besylate 12/04/16 Chlorthalidone [Chlorthalidone 25 12/04/16 mg (*)] Labetalol HCl 12/04/16 Ondansetron Odt [Zofran Odt 4 mg 4 mg PO Q4PRN PRN #10 tab 12/05/16 (*)] Medical Decision Making - Data Points Medications Given: Discontinued Medications Chlordiazepoxide HCl (Librium) 25 mg PO EDNOW ONE Stop: 01/06/17 01:55 Last Admin: 01/06/17 01:59 Dose: 25 mg Chlordiazepoxide HCl (Librium) 25 mg PO EDNOW ONE Stop: 01/06/17 02:05 Last Admin: 01/06/17 02:07 Dose: Not Given Sodium Chloride (Ns) 1,000 mls @ 0 mls/hr IV ONCE ONE PRN Reason: Wide Open Stop: 01/06/17 01:55 Last Admin: 01/06/17 02:07 Dose: Not Given Lorazepam (Ativan Injection) 1 mg IVP EDNOW ONE Stop: 01/06/17 01:55 Last Admin: 01/06/17 02:07 Dose: Not Given Lorazepam (Ativan) 1 mg PO ONCE ONE Stop: 01/06/17 02:04 Last Admin: 01/06/17 02:06 Dose: 1 mg Ondansetron HCl (Zofran) 4 mg IVP EDNOW ONE Stop: 01/06/17 01:56 Last Admin: 01/06/17 02:07 Dose: Not Given Ondansetron HCl (Zofran Odt) 4 mg PO EDNOW ONE Stop: 01/06/17 02:09 Last Admin: 01/06/17 02:08 Dose: 4 mg Departure - Departure Disposition: Home, Routine, Self-Care Clinical Impression: Anxiety Alcohol withdrawal Qualifiers: Complication of substance-induced condition: uncomplicated Qualified Code(s): F10.230 - Alcohol dependence with withdrawal, uncomplicated Condition: Good Instructions: Anxiety (ED) Referrals: NONE *PRIMARY CARE P,. [Primary Care Provider] - As per Instructions
[2017-01-06] MEDS ORDERED: LORazepam 2 MG/ML INJ IVP ONE (01:54)
[2017-01-06] MEDS ORDERED: NS 1,000 ML IV ONE (01:54)
[2017-01-06] MEDS ORDERED: chlordiazePOXIDE 25 MG CAP PO ONE ×2 (01:54→02:04)
[2017-01-06] MEDS ORDERED: ONDANSETRON 4 MG/2 ML VIAL IVP ONE (01:55)
[2017-01-06] MEDS ORDERED: LORazepam 1 MG TAB PO ONE (02:03)
[2017-01-06] MEDS ORDERED: ONDANSETRON DISINTEGRATING 4 MG TAB ONE (02:04)
[2017-01-06] MEDS ORDERED: LORazepam 1 MG TAB ONE (02:04)
[2017-01-06] MEDS ORDERED: ONDANSETRON DISINTEGRATING 4 MG TAB PO ONE (02:08)
[2017-01-06 02:59] VITALS: TEMP 97.3
[2017-01-06 03:53] VITALS: BP 148/105; PULSE 98; RESP 20; O2SAT 90
== END 2017-01-06 04:38 | disposition home or self-care (01) ==
DX: F41.9 Anxiety disorder, unspecified (principal); F10.230 Alcohol dependence with withdrawal, uncomplicated; J45.909 Unspecified asthma, uncomplicated; F17.200 Nicotine dependence, unspecified, uncomplicated

== ENCOUNTER 2017-01-24 20:38 | Inpatient (IN) | payer MEDICAID ==
[2017-01-24] MEDS ORDERED: IPRATROPIUM/ALBUTEROL 3 ML DEYVIAL IH ONE (20:50)
--- NOTE | 2017-01-24 20:53 | EDPHY ---
H & P Time Seen by Provider: 01/24/17 20:38 HPI/ROS: CHIEF COMPLAINT: Dyspnea, depression HISTORY OF PRESENT ILLNESS: 61-year-old male presents to the emergency department by ambulance feeling depressed and suicidal. The patient states that he had a knife to his neck today and was going to kill himself. He states "I want to ." He denies homicidal ideation. Denies auditory or visual hallucinations. The patient was diagnosed with acute bronchitis or pneumonia at [facility] 1 month ago. The patient states that he has been short of breath over last 1 month. He states that he never really got rid of the infection. He has felt subjective fevers and chills. He denies pain in his chest. Denies abdominal pain. He states that he has not eaten few days. He has had severe panic attacks and has been urinating on himself. He states that he feels so panicky that he does not eat anything. Denies dysuria or frequency with urination. REVIEW OF SYSTEMS: Constitutional: Subjective fevers, chills Eyes: No double or blurry vision. ENT: No sore throat. Respiratory: Cough, shortness of breath Cardiac: No chest pain. Gastrointestinal: No abdominal pain, vomiting or diarrhea. Genitourinary: No dysuria. Musculoskeletal: No neck or back pain. Skin: No rashes. Neurological: No headache. Past Medical/Surgical History: Alcoholism, liver disease, ascites, anxiety, hypertension, cirrhosis, chronic back pain, tonsillectomy Social History: Lives alone in [place] Smoking Status: Heavy smoker Physical Exam: General Appearance: Alert, mild respiratory distress. 87% on room air. He is able to speak in full sentences. Eyes: Pupils equal and round. Extraocular motions are all intact. ENT: Mouth: Mucous membranes moist. Respiratory: Diffuse expiratory wheezing throughout. Decreased breath sounds especially in the bases. Cardiovascular: Regular rate and rhythm. Gastrointestinal: Abdomen is soft and nontender, no masses, no rebound or guarding, bowel sounds normal. Neurological: Alert and oriented x 3, cranial nerves II through XII grossly intact Skin: Warm and dry, no rashes. Musculoskeletal: Nontender to palpate along the cervical, thoracic or lumbar spine. Neck is supple. No signs of trauma to his neck. Extremities: Full range of motion and no peripheral edema. Psychiatric: Patient is oriented X 3, there is no agitation. Constitutional: Initial Vital Signs Temperature (C) 36.9 C 01/24/17 20:43 Heart Rate 102 H 01/24/17 20:43 Respiratory Rate 18 01/24/17 20:43 Blood Pressure 150/112 H 01/24/17 20:43 O2 Sat (%) 89 L 01/24/17 20:43 O2 Delivery Mode Nasal Cannula O2 (L/minute) 3 Allergies/Adverse Reactions: lisinopril Allergy (Verified 01/24/17 20:46) Home Medications: Medication Instructions Recorded Ibuprofen [Motrin (*)] 600 mg PO DAILY PRN 06/29/16 Sertraline HCl [Zoloft 100mg (*)] 100 mg PO DAILY 06/29/16 Amlodipine Besylate 12/04/16 Chlorthalidone [Chlorthalidone 25 12/04/16 mg (*)] Labetalol HCl 12/04/16 Ondansetron Odt [Zofran Odt 4 mg 4 mg PO Q4PRN PRN #10 tab 12/05/16 (*)] Medical Decision Making - Diagnostics Imaging Results: Imaging Impressions Chest X-Ray 01/24/17 20:49 Impression: Limited apical lordotic projection with right basilar consolidation that could be related to pneumonia or projectional artifact. Imaging: I viewed and interpreted images myself ED Course/Re-evaluation: 61-year-old male presents to the emergency department feeling depressed and suicidal. He was placed on an M1 hold. Patient also has an O2 saturation in the mid 80s. He has had an ongoing productive cough for over 1 month. He was treated 1 month ago at [facility] with likely Zithromax. Chest x-ray today reveals right lower lobe pneumonia. He was started on Levaquin. Blood cultures are pending. Because the patient is feeling suicidal and is on an M1 hold, he will be admitted to the ICU to the hospitalist. When he is medically cleared he will be evaluated by mental health. Differential Diagnosis: Shortness of breath including but not limited to pulmonary infectious process, COPD, asthma, pulmonary embolus and congestive heart failure. Depression including functional and major depression, situational depression, medication side effect, drugs and alcohol abuse. - Data Points Laboratory Results: Laboratory Results 01/24/17 23:01 01/24/17 23:01 01/24/17 01/24/17 01/24/17 23:01 23:01 23:01 WBC RBC Hgb Hct MCV MCH MCHC RDW Plt Count MPV Neut % (Auto) Lymph % (Auto) [place] % (Auto) Eos % (Auto) Baso % (Auto) Nucleat RBC Rel Count Absolute Neuts (auto) Absolute Lymphs (auto) Absolute Monos (auto) Absolute Eos (auto) Absolute Basos (auto) Absolute Nucleated RBC Immature Gran % Immature Gran # VBG Lactic Acid 1.5 mmol/L mmol/L (0.7-2.1) Sodium 136 mEq/L mEq/L (134-144) Potassium 5.0 mEq/L mEq/L (3.5-5.2) Chloride 100 mEq/L mEq/L (97-110) Carbon Dioxide 23 mEq/l mEq/l (22-31) Anion Gap 13 mEq/L mEq/L (8-16) BUN 10 mg/dL mg/dL (7-23) Creatinine 0.7 mg/dL mg/dL (0.7-1.3) Estimated GFR > 60 Glucose 97 mg/dL mg/dL (70-100) Calcium 9.3 mg/dL mg/dL (8.5-10.4) Total Bilirubin Pending Conjugated Bilirubin Pending Unconjugated Bilirubin Pending AST Pending ALT Pending Alkaline Phosphatase Pending Total Protein Pending Albumin Pending Specimen Hemolysis 137 Ethyl Alcohol Pending 01/24/17 23:01 WBC 10.05 10^3/uL H 10^3/uL (3.80-9.50) RBC 5.05 10^6/uL 10^6/uL (4.40-6.38) Hgb 16.0 g/dL g/dL (13.7-17.5) Hct 46.0 % % (40.0-51.0) MCV 91.1 fL fL (81.5-99.8) MCH 31.7 pg pg (27.9-34.1) MCHC 34.8 g/dL g/dL (32.4-36.7) RDW 14.0 % % (11.5-15.2) Plt Count 287 10^3/uL 10^3/uL (150-400) MPV 10.3 fL fL (8.7-11.7) Neut % (Auto) 59.5 % % (39.3-74.2) Lymph % (Auto) 21.2 % % (15.0-45.0) [place] % (Auto) 16.8 % H % (4.5-13.0) Eos % (Auto) 1.6 % % (0.6-7.6) Baso % (Auto) 0.6 % % (0.3-1.7) Nucleat RBC Rel Count 0.0 % % (0.0-0.2) Absolute Neuts (auto) 5.98 10^3/uL 10^3/uL (1.70-6.50) Absolute Lymphs (auto) 2.13 10^3/uL 10^3/uL (1.00-3.00) Absolute Monos (auto) 1.69 10^3/uL H 10^3/uL (0.30-0.80) Absolute Eos (auto) 0.16 10^3/uL 10^3/uL (0.03-0.40) Absolute Basos (auto) 0.06 10^3/uL 10^3/uL (0.02-0.10) Absolute Nucleated RBC 0.00 10^3/uL 10^3/uL (0-0.01) Immature Gran % 0.3 % % (0.0-1.1) Immature Gran # 0.03 10^3/uL 10^3/uL (0.00-0.10) VBG Lactic Acid Sodium Potassium Chloride Carbon Dioxide Anion Gap BUN Creatinine Estimated GFR Glucose Calcium Total Bilirubin Conjugated Bilirubin Unconjugated Bilirubin AST ALT Alkaline Phosphatase Total Protein Albumin Specimen Hemolysis Ethyl Alcohol Medications Given: Discontinued Medications Albuterol/Ipratropium (Duoneb) 3 ml IH EDNOW ONE Stop: 01/24/17 20:51 Last Admin: 01/24/17 21:18 Dose: 3 ml Levofloxacin/Dextrose (Levaquin 750 Mg (Premix)) 150 mls @ 100 mls/hr IV EDNOW ONE PRN Reason: Protocol Stop: 01/24/17 23:26 Last Admin: 01/24/17 23:17 Dose: Not Given Levofloxacin (Levaquin) 750 mg PO EDNOW ONE PRN Reason: Protocol Stop: 01/24/17 23:23 Last Admin: 01/24/17 23:31 Dose: 750 mg Departure - Departure Disposition: [facility] Inpatient Acute Clinical Impression: Suicidal ideation Pneumonia Qualifiers: Pneumonia type: due to unspecified organism Laterality: right Lung location: lower lobe of lung Qualified Code(s): J18.1 - Lobar pneumonia, unspecified organism Condition: Good
[2017-01-24 23:09] LABS: % IMMATURE GRANULYOCYTES 0.3 % (0.0-1.1); ABSOLUTE IMMATURE GRANULOCYTES 0.03 10^3/uL (0.00-0.10); ADD DIFF? NO; ADD MORPH? NO; ADD SCAN? NO; ATYPICAL LYMPHOCYTE FLAG 20 (0-99); FRAGMENT RBC FLAG 0 (0-99); LEFT SHIFT FLG 10 (0-99); LIPEMIA HEMOLYSIS FLAG 90 (0-99); MEAN CELL HEMOGLOBIN 31.7 pg (27.9-34.1); MEAN CELL HEMOGLOBIN CONCENTR. 34.8 g/dL (32.4-36.7); MEAN CELL VOLUME 91.1 fL (81.5-99.8); MEAN PLATELET VOLUME 10.3 fL (8.7-11.7); PLATELET CLUMPS FLAG 30 (0-99); PLATELET COUNT 287 10^3/uL (150-400); RED BLOOD CELL COUNT 5.05 10^6/uL (4.40-6.38)
[2017-01-24 23:22] LABS: ANION GAP 13 mEq/L (8-16); CALCIUM 9.3 mg/dL (8.5-10.4); CARBON DIOXIDE 23 mEq/l (22-31); CHLORIDE 100 mEq/L (97-110); CREATININE 0.7 mg/dL (0.7-1.3); GLOMERULAR FILTRATION RATE > 60; GLUCOSE 97 mg/dL (70-100); SODIUM 136 mEq/L (134-144); SPECIMEN HEMOLYSIS 137
[2017-01-24] MEDS ORDERED: ALBUTEROL 3 ML DEYVIAL IH PRN (23:55)
[2017-01-24] MEDS ORDERED: ONDANSETRON DISINTEGRATING 4 MG TAB PO PRN (23:55)
[2017-01-25 00:15] LABS: ALBUMIN 4.2 g/dL (3.5-5.0); BILIRUBIN,TOTAL 0.8 mg/dL (0.1-1.4); BILIRUBIN-CONJUGATED 0.6 mg/dL (0.0-0.5); BILIRUBIN-UNCONJUGATED 0.2 mg/dL (0.0-1.1); TOTAL PROTEIN 7.5 g/dL (6.3-8.2)
[2017-01-25] MEDS ORDERED: LORazepam 2 MG/ML INJ ONE (00:23)
[2017-01-25] MEDS: LORazepam 2 MG/ML INJ IVP PRN ×2 (00:30→22:19)
[2017-01-25] MEDS: predniSONE 20 MG TAB PO SCH ×2 (02:12→09:52)
[2017-01-25] MEDS: chlordiazePOXIDE 25 MG CAP PO SCH ×4 (02:12→13:14)
[2017-01-25] MEDS: ONDANSETRON 4 MG/2 ML VIAL IVP PRN ×2 (03:09→14:21)
--- NOTE | 2017-01-25 04:46 | PDGENHP ---
History and Physical - Chief Complaint cough, shortness of breath - History of Present Illness Pt is 61/M with COPD, chronic ETOH use, cirrhosis, schizoaffective and anxiety disorder who presents to the ED with complaint of cough and shortness of breath. Patient states he went evaluated in the [facility] ED about 1 month ago for productive cough, he was diagnosed with a pneumonia and discharged with 1 week of oral antibiotics, which he reports he complied with. However, he reports his cough never improved. He describes a thick productive cough, with clear-whitish sputum. Over the past 3 days, he feels his cough has gotten slightly worse, become associated with subjective fevers/chills and increased shortness of breath. He denies any chest pain, palpitations, abdominal pain, nausea, vomiting or diarrhea. He reports continued alcohol use, states his last drink was a six-pack of beer for breakfast. He also continues to smoke about 1.5 PPD. He also reports that his anxiety disorder has been uncontrolled over the past several months. However , today he felt significantly depressed and reports suicidal ideation. He says a friend talked him down and he came to the ED seeking help for this. While in the ED, he continues to state he wants to and reports having very frequent panic attacks. On arrival to the ED patient was afebrile, hemodynamically stable, but slightly tachycardic and hypoxic on room air. His labs showed normal CBC, BMP, LFTs. CXR showed R lower lobe consolidation concerning for pneumonia. He was placed on an M1 hold given his expression of suicidal ideation. He was also cultured and initiated on antibiotics and admitted to the hospitalist service for further management. History Information - Allergies/Home Medication List Allergies/Adverse Reactions: lisinopril Allergy (Verified 01/24/17 20:46) Home Medications: Ibuprofen [Motrin (*)] 600 mg PO DAILY PRN 06/29/16 [Last Taken 06/28/16] Sertraline HCl [Zoloft 100mg (*)] 100 mg PO DAILY 06/29/16 [Last Taken 06/28/16] Amlodipine Besylate 12/04/16 [Last Taken Unknown] Chlorthalidone [Chlorthalidone 25 mg (*)] 12/04/16 [Last Taken Unknown] Labetalol HCl 12/04/16 [Last Taken Unknown] I have personally reviewed and updated: family history, medical history, social history, surgical history - Past Medical History Additional medical history: HTN. COPD. Schizoaffective disorder. Anxiety disorder. Hepatitis C, s/p Harvoni treatment. h/o chronic alcohol use. h/o IV drug abuse - Social History Smoking Status: Heavy smoker (1.5 PPD x 45 years) Alcohol Use: Heavy (1-2 six packs beer daily) Drug Use: Other (former IVDU, clean x 20 years) Additional social history: Pt lives alone, is independent in ADLs. Review of Systems ROS: 10pt was reviewed & negative except for what was stated in HPI & below Physical Exam Temp Pulse Resp BP Pulse Ox 36.9 C 115 H 18 124/80 H 93 01/24/17 20:43 01/25/17 00:37 01/25/17 00:37 01/25/17 00:37 01/25/17 00:37 O2 (L/minute) 3 Constitutional: no apparent distress, appears nourished, not in pain, obese Eyes: PERRL, anicteric sclera, EOMI Ears, Nose, Mouth, Throat: moist mucous membranes, hearing normal, ears appear normal, no oral mucosal ulcers Cardiovascular: regular rate and rhythym, no murmur, rub, or gallop, pulses symmetric bilaterally, No JVD, No edema Peripheral Pulses: 2+: dorsalis-pedis (R), dorsalis-pedis (L) Respiratory: no respiratory distress, no rales or rhonchi, inspiratory crackles (in right base) Gastrointestinal: normoactive bowel sounds, soft, non-tender abdomen, no palpable masses, No tenderness, No guarding, No rebound Genitourinary: no bladder fullness, no bladder tenderness Skin: warm, normal color, no rashes or abrasions, no fluctuance, no induration, No mottled Musculoskeletal: full muscle strength, no muscle tenderness, normal joint ROM, no joint effusions Neurologic: AAOx3, sensation intact bilaterally, CN II-XII Intact, other (no tremor or tongue fasiculation noted), No weakness, No numbness, No facial droop Psychiatric: interacting appropriately, not anxious, not encephalopathic, thought process linear Lab Data & Imaging Review 01/24/17 23:01 01/24/17 23:01 WBC 10.05 10^3/uL (3.80-9.50) H 01/24/17 23: RBC 5.05 10^6/uL (4.40-6.38) 01/24/17 23: Hgb 16.0 g/dL (13.7-17.5) 01/24/17 23: Hct 46.0 % (40.0-51.0) 01/24/17: MCV 91.1 fL (81.5-99.8) 01/24/17: MCH 31.7 pg (27.9-34.1) 01/24/17: MCHC 34.8 g/dL (32.4-36.7) 01/24/17: RDW 14.0 % (11.5-15.2) 01/24/17 23: Plt Count 287 10^3/uL (150-400) 01/24/17: MPV 10.3 fL (8.7-11.7) 01/24/17 23: Neut % (Auto) 59.5 % (39.3-74.2) 01/24/17: Lymph % (Auto) 21.2 % (15.0-45.0) 01/24/17: [place] % (Auto) 16.8 % (4.5-13.0) H 01/24/17 23: Eos % (Auto) 1.6 % (0.6-7.6) 01/24/17: Baso % (Auto) 0.6 % (0.3-1.7) 01/24/17: Nucleat RBC Rel Count 0.0 % (0.0-0.2) 01/24/17 23: Absolute Neuts (auto) 5.98 10^3/uL (1.70-6.50) 01/24/17 23: Absolute Lymphs (auto) 2.13 10^3/uL (1.00-3.00) 01/24/17 23: Absolute Monos (auto) 1.69 10^3/uL (0.30-0.80) H 01/24/17 23: Absolute Eos (auto) 0.16 10^3/uL (0.03-0.40) 01/24/17 23: Absolute Basos (auto) 0.06 10^3/uL (0.02-0.10) 01/24/17 23: Absolute Nucleated RBC 0.00 10^3/uL (0-0.01) 01/24/17 23: Immature Gran % 0.3 % (0.0-1.1) 01/24/17 23: Immature Gran # 0.03 10^3/uL (0.00-0.10) 01/24/17 23: VBG Lactic Acid 1.5 mmol/L (0.7-2.1) 01/24/17 23: Sodium 136 mEq/L (134-144) 01/24/17: Potassium 5.0 mEq/L (3.5-5.2) 01/24/17: Chloride 100 mEq/L (97-110) 01/24/17 23: Carbon Dioxide 23 mEq/l (22-31) 01/24/17 23: Anion Gap 13 mEq/L (8-16) 01/24/17 23: BUN 10 mg/dL (7-23) 01/24/17 23: Creatinine 0.7 mg/dL (0.7-1.3) 01/24/17 23: Estimated GFR > 60 01/24/17 23: Glucose 97 mg/dL (70-100) 01/24/17 23: Calcium 9.3 mg/dL (8.5-10.4) 01/24/17 23: Total Bilirubin 0.8 mg/dL (0.1-1.4) 01/24/17 23: Conjugated Bilirubin 0.6 mg/dL (0.0-0.5) H 01/24/17 23: Unconjugated Bilirubin 0.2 mg/dL (0.0-1.1) 01/24/17 23: AST 39 IU/L (17-59) 01/24/17 23: ALT 26 IU/L (21-72) 01/24/17 23: Alkaline Phosphatase 68 IU/L (38-126) 01/24/17 23: Total Protein 7.5 g/dL (6.3-8.2) 01/24/17 23:01 Albumin 4.2 g/dL (3.5-5.0) 01/24/17 23:01 Specimen Hemolysis 142 01/24/17 23:01 Urine Opiates Screen NEGATIVE (NEGATIVE) 01/25/17 00:18 Urine Barbiturates NEGATIVE (NEGATIVE) 01/25/17 00:18 Ur Phencyclidine Scrn NEGATIVE (NEGATIVE) 01/25/17 00:18 Ur Amphetamine Screen NEGATIVE (NEGATIVE) 01/25/17 00:18 U Benzodiazepines Scrn NON-NEGATIVE (NEGATIVE) H 01/25/17 00:18 Urine Cocaine Screen NEGATIVE (NEGATIVE) 01/25/17 00:18 U Marijuana (THC) Screen NON-NEGATIVE (NEGATIVE) H 01/25/17 00:18 Ethyl Alcohol 15 mg/dL (0-10) H 01/24/17 23:01 Visualized and Interpreted Chest x-ray results: Yes Chest X-Ray results: other (consolidation in RLL) Assessment & Plan Assessment: Patient is 61/M with copd, schizoaffective and anxiety disorder, chronic alcohol and tobacco use who presents to the ED with complaint of cough, shortness of breath and subjective fever, as well as suicidal ideations. ED work up reveals likely RLL pneumonia, mild COPD exacerbation and SI. Plan: # acute hypoxic respiratory failure Patient with mild hypoxia on room air, cxr reveals consolidation in RLL and patient with some wheezing on exam. Resp failure likely the result of a mild COPD exacerbation that may have been provoked by acute infection. Will provide supplement O2, initiate steroids and standing/prn nebs and treat his presumed pneumonia. # acute pneumonia Patient reports subjective fever, thick productive cough and cxr shows RLL consolidation. Although patient does not meet sirs criteria given lack of fever , leukocytosis, tachypnea, appears to clinically have infection. Will follow up cultures, obtain sputum cultures and continue Levaquin for community acquired pneumonia coverage. # chronic, continuous alcohol use Patient reports last etoh intake was this morning. Other than slight tachycardia , does not have significant withdrawal symptoms on my evaluation. Will place on CIWA protocol, provide prn ativan, daily thiamine, multivitamin and folate supplementation. # suicidal ideation, schizoaffective/anxiety disorder On my evaluation patient continues to express SI, denies any HI. Will maintain M1 hold with 1:1 observation. Once medically cleared, will require psychiatry evaluation. # chronic tobacco use Discussed risks/benefits of continued tobacco use given copd, acute infection. Offered nicotine replacement therapy. # dispo: admit to observation status for mild hypoxia due to above # gen: cardiac diet DVT ppx: lovenox Full code
[2017-01-25] MEDS: IPRATROPIUM/ALBUTEROL 3 ML DEYVIAL IH SCH ×4 (05:37→21:20)
[2017-01-25] MEDS: LORazepam 1 MG TAB PO PRN ×3 (05:43→17:18)
[2017-01-25] MEDS: FOLIC ACID 1 MG TAB PO SCH (09:52)
[2017-01-25] MEDS: THIAMINE HCL 100 MG TAB PO SCH (09:52)
[2017-01-25] MEDS: MULTIVITAMINS 1 EACH TAB PO SCH (09:52)
[2017-01-25] MEDS ORDERED: NICOTINE 21 MG/24 HR PATCH TD ONE (10:24)
[2017-01-25] MEDS: ENOXAPARIN 40 MG/0.4 ML SYR SC SCH (10:30)
[2017-01-25] MEDS: NS 1,000 ML IV SCH ×2 (10:31→20:25)
--- NOTE | 2017-01-25 11:11 | HOSPPROG ---
Hospitalist Progress Note Assessment/Plan: # acute hypoxic respiratory failure 2/2 COPD exacerbation and PNA - cont nebs, O2, atbx # PNA - CXR personally reviewed and interpreted, shows RLL consolidation. Cont Levaquin. # chronic, continuous alcohol use - CIWA protocol, prn ativan, daily thiamine, MVI and folate supplementation. # suicidal ideation, schizoaffective/anxiety disorder - Cont M1 hold with 1:1 observation. Once medically cleared, plan for psychiatry evaluation. # chronic tobacco use - nicoderm, encourage cessation # dispo: admit to observation status for mild hypoxia due to above # gen: cardiac diet DVT ppx: lovenox Full code Subjective: Pt resting comfortably. Denies CP or SOB. Still with productive cough. Getting chills, but no documented fevers. Denies suicidal ideation today. Objective: Vital Signs Temp Pulse Resp BP Pulse Ox 36.9 C 110 H 20 157/100 H 95 01/25/17 08:00 01/25/17 09:57 01/25/17 09:57 01/25/17 08:00 01/25/17 09:57 01/24/17 01/25/17 01/26/17 05:59 05:59 05:59 Intake Total 100 Balance 100 - Physical Exam Constitutional: no apparent distress Eyes: PERRL Ears, Nose, Mouth, Throat: moist mucous membranes Cardiovascular: regular rate and rhythym Respiratory: reduced air movement Gastrointestinal: normoactive bowel sounds, soft, non-tender abdomen Skin: warm Musculoskeletal: full muscle strength Neurologic: AAOx3 Psychiatric: flat affect ICD10 Worksheet Patient Problems: Problems Problem Status Onset Pneumonia Acute Suicidal ideation Acute RANDAL (acute kidney injury) Acute Alcohol dependence with physiological dependence, episodic Acute Alcohol intoxication Acute Alcoholism Acute Anxiety Acute COPD exacerbation Acute Elevated bilirubin Acute Hand edema Acute Hypokalemia Acute Hyponatremia Acute Lactic acidosis Acute Leg edema Acute Leukocytosis Acute Nausea vomiting and diarrhea Acute Schizoaffective disorder, bipolar type Acute
[2017-01-25] MEDS: amLODIPine BESYLATE 5 MG TAB PO SCH (12:00)
[2017-01-25] MEDS: SERTRALINE HCL 100 MG TAB PO SCH (12:00)
[2017-01-25] MEDS: ACETAMINOPHEN 325 MG TAB PO PRN (17:18)
[2017-01-25] MEDS ORDERED: CEPACOL LOZENGE PO PRN (19:19)
--- NOTE | 2017-01-25 21:15 | GCON ---
[f rep st] CONSULTATION PULMONARY/CRITICAL CARE CONSULTATION DATE OF CONSULTATION: 01/25/2017 REFERRING PHYSICIAN: Deepika Sow MD REASON FOR CONSULTATION: Evaluation and management of cough and COPD. HISTORY: The patient is a 61-year-old gentleman, with a history of chronic alcohol use and schizoaffective disorder, along with COPD, who was admitted with cough and shortness of breath. He was seen at [facility] about a month ago for productive cough, and was diagnosed with a pneumonia. He was treated with oral antibiotics for a week, as well as steroids, which he states that he completed as directed. However, his productive cough persisted. He brings up mostly clear sputum, and he feels it has been getting worse for the last few days. It was also associated with increased shortness of breath, and some possible fevers and chills. He denies any chest pain. Since admission, he continues to cough, but feels a bit less short of breath. However, he has not been very active. Prior to admission, he expressed some suicidal ideation, although he currently denies that. PAST MEDICAL HISTORY: 1. Schizoaffective disorder. 2. COPD. 3. Chronic alcoholism. 4. History of pancreatitis. 5. Cirrhosis. MEDICATIONS: At the time of admission include ibuprofen, sertraline, albuterol , chlorthalidone, and amlodipine. ALLERGIES: Lisinopril. SOCIAL HISTORY: The patient smokes about a ridn-nvv-c-half of cigarettes daily , and has a 25-nyan-bhag history of smoking. He drinks 6-12 alcoholic beverages daily. He is a former IV drug abuser, and lives alone. FAMILY HISTORY: Unremarkable. REVIEW OF SYSTEMS: A 10-point review of systems adds nothing to the History of Present Illness. PHYSICAL EXAMINATION: GENERAL: The patient is awake, alert, in no acute distress. VITAL SIGNS: Blood pressure is 137/76, with a heart rate of 114. He is afebrile. Oxygen saturations are 91% on 3 L. HEENT: Normocephalic and atraumatic. No icterus. NECK: No JVD. Trachea is midline. CHEST: Diffuse wheezes. CARDIAC: Regular tachycardia without murmur. ABDOMEN: Soft, nontender. Bowel sounds are present. No hepatosplenomegaly. EXTREMITIES: No clubbing, cyanosis, or edema. NEUROLOGIC: The patient is awake, alert, and oriented x3. He has grossly normal motor function in all 4 extremities. Gait is not tested. LABORATORY DATA: White blood count is 10.0, hemoglobin is 16.0, and MCV is 91.1. Chemistry group is normal. Lactate is 1.5. An alcohol level is 15. A toxicology screen is positive for benzodiazepines and marijuana. A chest x-ray shows a possible right lower lobe pneumonia, although this could be due to lordotic projection. ASSESSMENT: 1. Chronic obstructive pulmonary disease exacerbation. The patient may or may not have pneumonia. He has been started empirically on Levaquin. He is also on steroids and nebulized bronchodilators, in addition to oxygen. His symptoms started to improve, although he still has a significant cough. 2. Tobacco abuse. The patient acknowledges that he continued to smoke, despite having significant cough, stating that he is addicted to tobacco. He has been started on a nicotine patch. He states that he is not having any cravings. 3. History of alcoholism. The patient is at risk for withdrawal, but currently denies symptoms. 4. Suicidal ideation. This was expressed previously, but the patient currently denies this. PLAN: Continue Levaquin, bronchodilators, and oral prednisone at 60 mg daily. Nicotine patch has been placed, and will be continued. The patient will be monitored for alcohol withdrawal. He has been placed on an M1 hold, but currently denies suicidal ideation. Psychiatry consult has been requested. /[id number]/MODL MTDD
[2017-01-26] MEDS: LORazepam 1 MG TAB PO PRN ×5 (02:42→19:53)
[2017-01-26] MEDS: IPRATROPIUM/ALBUTEROL 3 ML DEYVIAL IH SCH ×4 (04:00→20:41)
[2017-01-26 06:25] LABS: % IMMATURE GRANULYOCYTES 0.6 % (0.0-1.1); ABSOLUTE IMMATURE GRANULOCYTES 0.12 10^3/uL (0.00-0.10); ADD DIFF? NO; ADD MORPH? NO; ADD SCAN? NO; ATYPICAL LYMPHOCYTE FLAG 0 (0-99); FRAGMENT RBC FLAG 0 (0-99); HEMATOCRIT 42.1 % (40.0-51.0); HEMOGLOBIN 14.6 g/dL (13.7-17.5); LEFT SHIFT FLG 10 (0-99); LIPEMIA HEMOLYSIS FLAG 90 (0-99); MEAN CELL HEMOGLOBIN 32.2 pg (27.9-34.1); MEAN CELL HEMOGLOBIN CONCENTR. 34.7 g/dL (32.4-36.7); MEAN CELL VOLUME 92.9 fL (81.5-99.8); MEAN PLATELET VOLUME 9.8 fL (8.7-11.7); PLATELET CLUMPS FLAG 0 (0-99); PLATELET COUNT 271 10^3/uL (150-400); RED BLOOD CELL COUNT 4.53 10^6/uL (4.40-6.38); RED CELL DISTRIBUTION WIDTH 13.5 % (11.5-15.2)
[2017-01-26] MEDS: ACETAMINOPHEN 325 MG TAB PO PRN (06:30)
[2017-01-26 06:43] LABS: ANION GAP 8 mEq/L (8-16); CALCIUM 8.6 mg/dL (8.5-10.4); CARBON DIOXIDE 27 mEq/l (22-31); CHLORIDE 104 mEq/L (97-110); CREATININE 0.6 mg/dL (0.7-1.3); GLOMERULAR FILTRATION RATE > 60; GLUCOSE 125 mg/dL (70-100); SODIUM 139 mEq/L (134-144)
[2017-01-26] MEDS: THIAMINE HCL 100 MG TAB PO SCH (08:17)
[2017-01-26] MEDS: ENOXAPARIN 40 MG/0.4 ML SYR SC SCH (08:17)
[2017-01-26] MEDS: LORazepam 2 MG/ML INJ IVP PRN (08:17)
[2017-01-26] MEDS: FOLIC ACID 1 MG TAB PO SCH (08:17)
[2017-01-26] MEDS: SERTRALINE HCL 100 MG TAB PO SCH (08:17)
[2017-01-26] MEDS: MULTIVITAMINS 1 EACH TAB PO SCH (08:17)
[2017-01-26] MEDS: predniSONE 20 MG TAB PO SCH (08:17)
[2017-01-26] MEDS: amLODIPine BESYLATE 5 MG TAB PO SCH (08:18)
--- NOTE | 2017-01-26 10:39 | HOSPPROG ---
Hospitalist Progress Note Assessment/Plan: # acute hypoxemic respiratory failure 2/2 COPD exacerbation and PNA - cont nebs , O2, atbx # PNA - CXR personally reviewed and interpreted, shows suspected RLL consolidation. Cont Levaquin. # chronic, continuous alcohol use - CIWA protocol, prn ativan, daily thiamine, MVI and folate supplementation. # suicidal ideation, schizoaffective/anxiety disorder - Cont M1 hold with 1:1 observation. Once medically cleared, plan for psychiatry evaluation. # chronic tobacco use - nicoderm, encourage cessation # dispo: changed to inpt as will require ongoing hospitalization for hypoxemia, COPD and PNA # DVT ppx: lovenox # Dispo: ICU for M1 hold Full code Subjective: Pt resting comfortably. Denies F/C. Still a bit tachypneic, no CP. Objective: Vital Signs Temp Pulse Resp BP Pulse Ox 36.4 C 97 26 H 136/71 H 94 01/26/17 08:00 01/26/17 08:00 01/26/17 08:00 01/26/17 08:18 01/26/17 08:00 Laboratory Results 01/26/17 06:15 01/26/17 06:15 01/25/17 01/26/17 01/27/17 05:59 05:59 05:59 Intake Total 4175 Output Total 1500 Balance 2675 - Physical Exam Constitutional: no apparent distress Eyes: PERRL Ears, Nose, Mouth, Throat: moist mucous membranes Cardiovascular: regular rate and rhythym Respiratory: no respiratory distress, expiratory wheeze Gastrointestinal: normoactive bowel sounds, soft, non-tender abdomen Skin: warm Musculoskeletal: full muscle strength ICD10 Worksheet Patient Problems: Problems Problem Status Onset Pneumonia Acute Suicidal ideation Acute RANDAL (acute kidney injury) Acute Alcohol dependence with physiological dependence, episodic Acute Alcohol intoxication Acute Alcoholism Acute Anxiety Acute COPD exacerbation Acute Elevated bilirubin Acute Hand edema Acute Hypokalemia Acute Hyponatremia Acute Lactic acidosis Acute Leg edema Acute Leukocytosis Acute Nausea vomiting and diarrhea Acute Schizoaffective disorder, bipolar type Acute
[2017-01-26] MEDS: oxyCODONE IR 5 MG TAB PO PRN ×3 (10:50→16:25)
[2017-01-26] MEDS: PANTOPRAZOLE SODIUM 40 MG TAB PO SCH (11:51)
[2017-01-26] MEDS: chlordiazePOXIDE 25 MG CAP PO SCH ×3 (11:52→21:29)
[2017-01-26] MEDS: NICOTINE 21 MG/24 HR PATCH TD SCH (11:53)
--- NOTE | 2017-01-26 15:58 | PDINTPN ---
Driver [employer] Progress Note Assessment/Plan: Assessment: COPD exacerbation: Clinically stable, on Levaquin, bronchodilators, prednisone Tobacco abuse: Doing well with Nicotine patch EtOH withdrawal: Still has a high CIWA, requiring frequent benzos. Suicidal Ideation: None currently Plan: Continue Levaquin, bronchodilators, steroids, nicotine patch. Benzos PRN per CIWA protocol. Continue M1 hold for now. Repeat CXR. 01/26/17 15:58 Subjective: Feels OK, still some agitation. No cigarette cravings. Cough persists. Objective: Vital Signs Temp Pulse Resp BP Pulse Ox 36.6 C 115 H 20 152/98 H 91 L 01/26/17 12:00 01/26/17 12:00 01/26/17 12:00 01/26/17 12:00 01/26/17 12:00 Laboratory Results 01/26/17 06:15 01/26/17 06:15 01/25/17 01/26/17 01/27/17 05:59 05:59 05:59 Intake Total 4175 Output Total 1500 575 Balance 2675 -575 Physical Exam - Physical Exam General Appearance: alert, no apparent distress EENT: normal ENT inspection Neck: normal inspection Respiratory: wheezing Cardiac/Chest: regular rate, rhythm, No edema Abdomen: normal bowel sounds, non-tender Skin: normal color, warm/dry Extremities: normal inspection Neuro/Psych: alert, normal mood/affect ICD10 Worksheet Patient Problems: Problems Problem Status Onset Pneumonia Acute Suicidal ideation Acute RANDAL (acute kidney injury) Acute Alcohol dependence with physiological dependence, episodic Acute Alcohol intoxication Acute Alcoholism Acute Anxiety Acute COPD exacerbation Acute Elevated bilirubin Acute Hand edema Acute Hypokalemia Acute Hyponatremia Acute Lactic acidosis Acute Leg edema Acute Leukocytosis Acute Nausea vomiting and diarrhea Acute Schizoaffective disorder, bipolar type Acute
[2017-01-27] MEDS: LORazepam 1 MG TAB PO PRN ×5 (00:08→23:26)
[2017-01-27] MEDS: IPRATROPIUM/ALBUTEROL 3 ML DEYVIAL IH SCH ×7 (05:57→23:43)
[2017-01-27 06:51] LABS: % IMMATURE GRANULYOCYTES 0.5 % (0.0-1.1); ABSOLUTE IMMATURE GRANULOCYTES 0.07 10^3/uL (0.00-0.10); ADD DIFF? NO; ADD MORPH? NO; ADD SCAN? NO; ATYPICAL LYMPHOCYTE FLAG 10 (0-99); FRAGMENT RBC FLAG 0 (0-99); HEMATOCRIT 45.6 % (40.0-51.0); HEMOGLOBIN 15.5 g/dL (13.7-17.5); LEFT SHIFT FLG 10 (0-99); LIPEMIA HEMOLYSIS FLAG 90 (0-99); MEAN CELL HEMOGLOBIN 31.3 pg (27.9-34.1); MEAN CELL VOLUME 92.1 fL (81.5-99.8); MEAN PLATELET VOLUME 9.6 fL (8.7-11.7); PLATELET CLUMPS FLAG 0 (0-99); PLATELET COUNT 304 10^3/uL (150-400); RED BLOOD CELL COUNT 4.95 10^6/uL (4.40-6.38); RED CELL DISTRIBUTION WIDTH 13.4 % (11.5-15.2)
[2017-01-27 07:46] LABS: ANION GAP 10 mEq/L (8-16); CARBON DIOXIDE 28 mEq/l (22-31); CHLORIDE 101 mEq/L (97-110); CREATININE 0.6 mg/dL (0.7-1.3); GLOMERULAR FILTRATION RATE > 60; GLUCOSE 110 mg/dL (70-100); POTASSIUM 3.8 mEq/L (3.5-5.2); SODIUM 139 mEq/L (134-144)
[2017-01-27] MEDS: NICOTINE 21 MG/24 HR PATCH TD SCH (08:08)
[2017-01-27] MEDS: THIAMINE HCL 100 MG TAB PO SCH (08:09)
[2017-01-27] MEDS: FOLIC ACID 1 MG TAB PO SCH (08:09)
[2017-01-27] MEDS: predniSONE 20 MG TAB PO SCH (08:09)
[2017-01-27] MEDS: amLODIPine BESYLATE 5 MG TAB PO SCH (08:09)
[2017-01-27] MEDS: MULTIVITAMINS 1 EACH TAB PO SCH (08:09)
[2017-01-27] MEDS: SERTRALINE HCL 100 MG TAB PO SCH (08:09)
[2017-01-27] MEDS: PANTOPRAZOLE SODIUM 40 MG TAB PO SCH (08:09)
[2017-01-27] MEDS: chlordiazePOXIDE 25 MG CAP PO SCH ×3 (08:09→20:24)
[2017-01-27] MEDS: ENOXAPARIN 40 MG/0.4 ML SYR SC SCH (08:10)
[2017-01-27] MEDS: oxyCODONE IR 5 MG TAB PO PRN ×2 (11:01→20:24)
--- NOTE | 2017-01-27 12:04 | HOSPPROG ---
Hospitalist Progress Note Assessment/Plan: # acute hypoxemic respiratory failure 2/2 COPD exacerbation and PNA - increased O2 requirement today, up to 5 LPM -change to IV solumedrol -increase frequency of nebs -cont levaquin # chronic, continuous alcohol use in withdrawal - CIWA protocol, prn ativan, daily thiamine, MVI and folate supplementation. -resume scheduled librium, still in w/d # suicidal ideation, schizoaffective/anxiety disorder - Cont M1 hold with 1:1 observation. Once medically cleared, plan for psychiatry evaluation. # chronic tobacco use - nicoderm, encourage cessation # dispo: cont inpt # DVT ppx: lovenox # Dispo: ICU for M1 hold Full code Subjective: PT feels scared, reports sister of COPD. Endorses suicidal thoughts and has a plan, but doesn't want to reveal it to me. Feels safe here, but would not feel safe at home. No CP, +SOB. No fevers. Objective: Vital Signs Temp Pulse Resp BP Pulse Ox 36.3 C 117 H 30 H 165/106 H 95 01/27/17 08:00 01/27/17 11:27 01/27/17 11:27 01/27/17 08:09 01/27/17 11:27 Laboratory Results 01/27/17 06:30 01/27/17 06:30 01/26/17 01/27/17 01/28/17 05:59 05:59 05:59 Intake Total 4175 900 Output Total 1500 1575 Balance 2675 -675 - Physical Exam Constitutional: no apparent distress Eyes: PERRL Ears, Nose, Mouth, Throat: moist mucous membranes Cardiovascular: tachycardia Respiratory: expiratory wheeze Gastrointestinal: normoactive bowel sounds, soft, non-tender abdomen Skin: warm Musculoskeletal: full muscle strength Neurologic: AAOx3 Psychiatric: interacting appropriately, anxious ICD10 Worksheet Patient Problems: Problems Problem Status Onset Pneumonia Acute Suicidal ideation Acute RANDAL (acute kidney injury) Acute Alcohol dependence with physiological dependence, episodic Acute Alcohol intoxication Acute Alcoholism Acute Anxiety Acute COPD exacerbation Acute Elevated bilirubin Acute Hand edema Acute Hypokalemia Acute Hyponatremia Acute Lactic acidosis Acute Leg edema Acute Leukocytosis Acute Nausea vomiting and diarrhea Acute Schizoaffective disorder, bipolar type Acute
--- NOTE | 2017-01-27 14:26 | PDINTPN ---
Injection Specialist Progress Note Assessment/Plan: Assessment: COPD exacerbation: Clinically stable, on Levaquin, bronchodilators, prednisone Tobacco abuse: Doing well with Nicotine patch EtOH withdrawal: Still has a high CIWA, requiring frequent benzos. Suicidal Ideation: None currently Plan: Continue Levaquin, bronchodilators, increased steroids (change to IV), nicotine patch. Benzos PRN per CIWA protocol, stop scheduled benzos. Continue M1 hold for now. 01/27/17 14:24 Subjective: Episodic increased dyspnea improves with neb treatments. Agitation/tremors improved. Objective: Vital Signs Temp Pulse Resp BP Pulse Ox 36.3 C 118 H 28 H 134/76 H 93 01/27/17 08:00 01/27/17 12:00 01/27/17 12:00 01/27/17 12:00 01/27/17 12:00 Laboratory Results 01/27/17 06:30 01/27/17 06:30 01/26/17 01/27/17 01/28/17 05:59 05:59 05:59 Intake Total 4175 900 Output Total 1500 1575 450 Balance 2675 -675 -450 CXR: Bronchitis. No infiltrates. Images reviewed. Physical Exam - Physical Exam General Appearance: alert, no apparent distress EENT: normal ENT inspection Neck: normal inspection Respiratory: wheezing (bilateral) Cardiac/Chest: regular rate, rhythm, No edema Abdomen: normal bowel sounds, non-tender, soft Skin: normal color, warm/dry Extremities: normal inspection Neuro/Psych: alert, normal mood/affect, oriented x 3 ICD10 Worksheet Patient Problems: Problems Problem Status Onset Pneumonia Acute Suicidal ideation Acute RANDAL (acute kidney injury) Acute Alcohol dependence with physiological dependence, episodic Acute Alcohol intoxication Acute Alcoholism Acute Anxiety Acute COPD exacerbation Acute Elevated bilirubin Acute Hand edema Acute Hypokalemia Acute Hyponatremia Acute Lactic acidosis Acute Leg edema Acute Leukocytosis Acute Nausea vomiting and diarrhea Acute Schizoaffective disorder, bipolar type Acute
[2017-01-27] MEDS: methylPREDNISolone SOD SUCC 125 MG/2 ML VIAL IVP SCH ×2 (15:41→20:24)
[2017-01-27] MEDS: LORazepam 2 MG/ML INJ IVP PRN (21:38)
[2017-01-28] MEDS: LORazepam 1 MG TAB PO PRN ×4 (04:08→19:24)
[2017-01-28] MEDS: oxyCODONE IR 5 MG TAB PO PRN ×4 (04:08→22:08)
[2017-01-28 04:19] LABS: % IMMATURE GRANULYOCYTES 0.8 % (0.0-1.1); ABSOLUTE IMMATURE GRANULOCYTES 0.15 10^3/uL (0.00-0.10); ADD DIFF? NO; ADD MORPH? NO; ADD SCAN? NO; ATYPICAL LYMPHOCYTE FLAG 0 (0-99); FRAGMENT RBC FLAG 0 (0-99); HEMATOCRIT 41.3 % (40.0-51.0); LEFT SHIFT FLG 10 (0-99); LIPEMIA HEMOLYSIS FLAG 90 (0-99); MEAN CELL HEMOGLOBIN 31.4 pg (27.9-34.1); MEAN CELL HEMOGLOBIN CONCENTR. 33.9 g/dL (32.4-36.7); MEAN CELL VOLUME 92.6 fL (81.5-99.8); MEAN PLATELET VOLUME 9.9 fL (8.7-11.7); PLATELET CLUMPS FLAG 0 (0-99); PLATELET COUNT 297 10^3/uL (150-400); RED BLOOD CELL COUNT 4.46 10^6/uL (4.40-6.38); RED CELL DISTRIBUTION WIDTH 13.3 % (11.5-15.2)
[2017-01-28] MEDS: IPRATROPIUM/ALBUTEROL 3 ML DEYVIAL IH SCH ×5 (04:21→20:32)
[2017-01-28] MEDS: NICOTINE 21 MG/24 HR PATCH TD SCH (09:13)
[2017-01-28] MEDS: ENOXAPARIN 40 MG/0.4 ML SYR SC SCH (09:13)
[2017-01-28] MEDS: chlordiazePOXIDE 25 MG CAP PO SCH ×2 (09:13→20:57)
[2017-01-28] MEDS: SERTRALINE HCL 100 MG TAB PO SCH (09:13)
[2017-01-28] MEDS: MULTIVITAMINS 1 EACH TAB PO SCH (09:14)
[2017-01-28] MEDS: methylPREDNISolone SOD SUCC 125 MG/2 ML VIAL IVP SCH ×2 (09:14→20:57)
[2017-01-28] MEDS: THIAMINE HCL 100 MG TAB PO SCH (09:14)
[2017-01-28] MEDS: PANTOPRAZOLE SODIUM 40 MG TAB PO SCH (09:14)
[2017-01-28] MEDS: FOLIC ACID 1 MG TAB PO SCH (09:14)
[2017-01-28] MEDS: amLODIPine BESYLATE 5 MG TAB PO SCH (09:14)
--- NOTE | 2017-01-28 12:11 | HOSPPROG ---
Hospitalist Progress Note Assessment/Plan: # acute hypoxemic respiratory failure 2/2 COPD exacerbation and PNA - increased O2 requirement today, up to 5 LPM -cont IV solumedrol, likely transition back to po prednisone tomorrow, may need taper -cont nebs, wean O2 as able -will likely need home O2 -cont levaquin # chronic, continuous alcohol use in withdrawal - Looks better today though CIWA as high as 16 overnight. On prn ativan, daily thiamine, MVI and folate supplementation. -reduce librium to BID, likely d/c tomorrow # suicidal ideation, schizoaffective/anxiety disorder - Cont M1 hold with 1:1 observation. Once medically cleared, plan for psychiatry evaluation, likely [place]do. # chronic tobacco use - nicoderm, encourage cessation # dispo: cont inpt # DVT ppx: lovenox # Dispo: ICU for M1 hold Full code Subjective: Pt feels better, he states the bzd's help with his anxiety and breathing. Notes his outpt psychiatrist will not prescribe bzd's in outpt setting. Overall, improving. No Cp or SOB at rest. Still some wheezing. No fevers. Objective: Vital Signs Temp Pulse Resp BP Pulse Ox 36.3 C 99 13 124/78 H 94 01/28/17 08:00 01/28/17 10:00 01/28/17 10:00 01/28/17 09:14 01/28/17 10:00 Laboratory Results 01/28/17 04:10 01/27/17 06:30 01/27/17 01/28/17 01/29/17 05:59 05:59 05:59 Intake Total 900 2500 Output Total 1575 1800 Balance -675 700 - Physical Exam Constitutional: no apparent distress Eyes: PERRL Ears, Nose, Mouth, Throat: moist mucous membranes Cardiovascular: regular rate and rhythym Respiratory: no respiratory distress, expiratory wheeze, other (improved air exchange) Skin: warm Musculoskeletal: full muscle strength Neurologic: AAOx3 Psychiatric: interacting appropriately ICD10 Worksheet Patient Problems: Problems Problem Status Onset Pneumonia Acute Suicidal ideation Acute RANDAL (acute kidney injury) Acute Alcohol dependence with physiological dependence, episodic Acute Alcohol intoxication Acute Alcoholism Acute Anxiety Acute COPD exacerbation Acute Elevated bilirubin Acute Hand edema Acute Hypokalemia Acute Hyponatremia Acute Lactic acidosis Acute Leg edema Acute Leukocytosis Acute Nausea vomiting and diarrhea Acute Schizoaffective disorder, bipolar type Acute
--- NOTE | 2017-01-28 13:43 | PDINTPN ---
Chef Progress Note Assessment/Plan: Assessment: COPD exacerbation: Clinically improved, on Levaquin, bronchodilators, solumedrol Tobacco abuse: Doing well with Nicotine patch EtOH withdrawal: CIWA low, requiring frequent PO Ativan. Suicidal Ideation: None currently Plan: Continue Levaquin, bronchodilators, steroids, nicotine patch, oxygen. Benzos PRN. Continue M1 hold for now. Likely will be medically cleared tomorrow , will get mental health eval at that point. 01/28/17 13:43 Subjective: Less dyspnea and cough. Still endorses that he might hurt himself if he is discharged to home. Activity lited by chronic pain due to sciatica Objective: Vital Signs Temp Pulse Resp BP Pulse Ox 36.6 C 103 H 21 H 133/69 H 93 01/28/17 13:32 01/28/17 13:32 01/28/17 13:32 01/28/17 13:32 01/28/17 13:32 Laboratory Results 01/28/17 04:10 01/27/17 06:30 01/27/17 01/28/17 01/29/17 05:59 05:59 05:59 Intake Total 900 2500 Output Total 1575 1800 Balance -675 700 Physical Exam - Physical Exam General Appearance: alert, no apparent distress EENT: normal ENT inspection Neck: normal inspection Respiratory: wheezing Cardiac/Chest: regular rate, rhythm, No edema Abdomen: non-tender Skin: normal color, warm/dry Extremities: normal inspection Neuro/Psych: alert, normal mood/affect, oriented x 3 ICD10 Worksheet Patient Problems: Problems Problem Status Onset Pneumonia Acute Suicidal ideation Acute RANDAL (acute kidney injury) Acute Alcohol dependence with physiological dependence, episodic Acute Alcohol intoxication Acute Alcoholism Acute Anxiety Acute COPD exacerbation Acute Elevated bilirubin Acute Hand edema Acute Hypokalemia Acute Hyponatremia Acute Lactic acidosis Acute Leg edema Acute Leukocytosis Acute Nausea vomiting and diarrhea Acute Schizoaffective disorder, bipolar type Acute
[2017-01-28 16:01] VITALS: TEMP 98.5
[2017-01-28] MEDS: LORazepam 2 MG/ML INJ IVP PRN (22:35)
[2017-01-29] MEDS: IPRATROPIUM/ALBUTEROL 3 ML DEYVIAL IH SCH ×4 (00:06→12:03)
[2017-01-29] MEDS: oxyCODONE IR 5 MG TAB PO PRN (02:26)
[2017-01-29] MEDS: ACETAMINOPHEN 325 MG TAB PO PRN (04:08)
[2017-01-29 09:20] VITALS: RESP 18
[2017-01-29] MEDS: FOLIC ACID 1 MG TAB PO SCH (09:45)
[2017-01-29] MEDS: SERTRALINE HCL 100 MG TAB PO SCH (09:45)
[2017-01-29] MEDS: MULTIVITAMINS 1 EACH TAB PO SCH (09:45)
[2017-01-29] MEDS: THIAMINE HCL 100 MG TAB PO SCH (09:45)
[2017-01-29] MEDS: PANTOPRAZOLE SODIUM 40 MG TAB PO SCH (09:46)
[2017-01-29] MEDS: chlordiazePOXIDE 25 MG CAP PO SCH (09:46)
[2017-01-29] MEDS: NICOTINE 21 MG/24 HR PATCH TD SCH (09:46)
[2017-01-29] MEDS: amLODIPine BESYLATE 5 MG TAB PO SCH (09:46)
[2017-01-29] MEDS: ENOXAPARIN 40 MG/0.4 ML SYR SC SCH (09:46)
[2017-01-29 09:51] VITALS: BP 144/95
[2017-01-29] MEDS: methylPREDNISolone SOD SUCC 125 MG/2 ML VIAL IVP SCH (10:15)
[2017-01-29] MEDS ORDERED: predniSONE 20 MG TAB PO SCH (10:30)
--- NOTE | 2017-01-29 12:28 | PDINTPN ---
Crna Progress Note Assessment/Plan: Assessment: COPD exacerbation: Clinically improved, on Levaquin, bronchodilators, solumedrol Tobacco abuse: Doing well with Nicotine patch EtOH withdrawal: CIWA low, requiring less Ativan, none since last night. Suicidal Ideation: None currently Plan: Discontinue Levaquin (completed 5 days), change steroids to PO and taper over 7-10 days. Continue nicotine patch, oxygen to be used PRN. OK to discharge to outpatient mental health followup. Follow-up with me in 1-2 weeks. 01/29/17 12:26 01/29/17 12:27 01/29/17 12:28 Subjective: Feels better, not suicidal. Breathing more comfortable, with less dyspnea. Objective: Vital Signs Temp Pulse Resp BP Pulse Ox 36.9 C 102 H 18 144/95 H 94 01/28/17 16:00 01/29/17 09:15 01/29/17 09:15 01/29/17 09:46 01/29/17 09:15 Laboratory Results 01/29/17 07:45 01/27/17 06:30 01/28/17 01/29/17 01/30/17 05:59 05:59 05:59 Intake Total 2500 800 Output Total 1800 1200 Balance 700 -400 Physical Exam - Physical Exam General Appearance: alert, no apparent distress EENT: normal ENT inspection Neck: normal inspection Respiratory: lungs clear, normal breath sounds Cardiac/Chest: regular rate, rhythm, No edema Abdomen: non-tender, soft Skin: normal color, warm/dry Extremities: non-tender Neuro/Psych: alert, normal mood/affect, oriented x 3 ICD10 Worksheet Patient Problems: Problems Problem Status Onset Pneumonia Acute Suicidal ideation Acute RANDAL (acute kidney injury) Acute Alcohol dependence with physiological dependence, episodic Acute Alcohol intoxication Acute Alcoholism Acute Anxiety Acute COPD exacerbation Acute Elevated bilirubin Acute Hand edema Acute Hypokalemia Acute Hyponatremia Acute Lactic acidosis Acute Leg edema Acute Leukocytosis Acute Nausea vomiting and diarrhea Acute Schizoaffective disorder, bipolar type Acute
[2017-01-29 14:59] VITALS: PULSE 98; O2SAT 98
--- NOTE | 2017-01-29 16:01 | GDS ---
[f rep st] DISCHARGE SUMMARY DISCHARGE DIAGNOSES: 1. Acute hypoxemic respiratory failure secondary to chronic obstructive pulmonary disease exacerbat ion, plus or minus pneumonia. 2. Chronic continuous alcohol use. 3. Alcohol withdrawal, resolved. 4. Suicidal ideation, evaluated by [facility] and cleared for safe discharge home. 5. Schizoaffective disorder. 6. Anxiety disorder. 7. Chronic tobacco use. CONSULTANTS: Dr. Aung Stearns, Pulmonology. HISTORY: For details, please see dictated history and physical dated January 25, 2017. In brief, the patient is a 61-year-old male with a history of COPD, chronic alcohol use, as well as schizoaffecti ve and anxiety disorder. Presented to the emergency department with cough, shortness of breath. He was admitted to the hospital for COPD exacerbation. He also endorsed suicidal ideation, was placed on an M1 hold. HOSPITAL COURSE: The patient was admitted to the ICU given his M1 hold status. He required supplem ental oxygen and was treated with nebulizers, steroids, and antibiotics. He completed 5 days of Lev aquin for possible right lower lobe pneumonia. His oxygen requirement improved from 5 L/minute to 3 L/minute and he is discharged home with home oxygen, as well as prescriptions for Spiriva, Flovent, and he will continue on albuterol with close outpatient followup with Pulmonology. Prior to discha fadia, he was evaluated by [facility] once he was medically cleared and they felt they wer e able to arrange for safe disposition home. The patient denied active suicidality. DISPOSITION: Patient is discharged home in stable condition. FOLLOWUP: 1. The patient will follow up with his primary care physician. 2. Follow up with Dr. James Stearns, Pulmonology, in 1-2 weeks. 3. [facility] arranged outpatient plan for close mental health followup. DISCHARGE MEDICATIONS: Please see [facility] for complete updated outpatient medication list. New me dications on discharge include: 1. Spiriva 1 inhalation daily, #1, no refills. 2. Flovent 220 mcg 1 puff b.i.d., #1, no refills. 3. Prednisone taper 50 mg p.o. daily for 2 days, followed by 40 mg p.o. daily for 2 days, followed by 30 mg p.o. daily for 2 days, followed by 20 mg p.o. daily for 2 days, followed by 10 mg p.o. isabel jose luis for 2 days, then off. 4. NicoDerm patch 21 mg daily, #21, no refills. He can follow up with his outpatient provider for 14 mg and 7 mg patch as needed. /[id number]/MODL
== END 2017-01-29 13:50 | disposition home or self-care (01) | DRG 193 ==
LOC: EDUNIT# → F2N 01-25 00:36 → EEVIPCON 01-25 14:09 → OBSVTOIN 01-25 14:09 → F2N 01-28 05:02
PROVIDERS: ADMIT Internal Medicine; ATTEND Hospitalist
DX: J18.9 Pneumonia, unspecified organism (principal); J44.1 Chronic obstructive pulmonary disease with (acute) exacerbation; J96.01 Acute respiratory failure with hypoxia; F10.230 Alcohol dependence with withdrawal, uncomplicated; F25.9 Schizoaffective disorder, unspecified; F41.9 Anxiety disorder, unspecified; F17.210 Nicotine dependence, cigarettes, uncomplicated
CPT/HCPCS: 80305; 97161-GP; 97166-GO; G0378; G0480; J1650; J1956; J2060; J2405

== ENCOUNTER 2017-01-30 02:02 | Inpatient (IN) | payer MEDICAID ==
[2017-01-30] MEDS ORDERED: IPRATROPIUM/ALBUTEROL 3 ML DEYVIAL ONE (02:08)
[2017-01-30] MEDS ORDERED: IPRATROPIUM/ALBUTEROL 3 ML DEYVIAL IH ONE (02:10)
[2017-01-30] MEDS ORDERED: predniSONE 20 MG TAB PO ONE (02:14)
--- NOTE | 2017-01-30 02:52 | EDPHY ---
H & P Stated Complaint: recent pnuemonia dc home sob now cough wheezing Time Seen by Provider: 01/30/17 02:03 HPI/ROS: HPI The patient presents with shortness of breath which began over the last several hours. He was discharged from the hospital earlier today for a COPD exacerbation with possible pneumonia. He says the shortness of breath has been worsening since he returned home. He has been coughing intermittently with a dry cough. He used his albuterol inhaler about 3 times without any improvement in his symptoms. He did attempt to smoke 3 cigarettes though from this was difficult because he was so short of breath. According to his discharge summary he was supposed to go home on home oxygen, though denies that there is any oxygen at his house. Upon arrival of paramedics, the patient's room air sat was 82% and he was very wheezy. REVIEW OF SYSTEMS Constitutional: No fever, no chills. Eyes: No discharge. ENT: No sore throat. Cardiovascular: No chest pain, no palpitations. Respiratory: See HPI Gastrointestinal: No abdominal pain, no vomiting. Genitourinary: No hematuria. Musculoskeletal: No back pain. Skin: No rashes. Neurological: No headache. PMHx: COPD, schizoaffective disorder, anxiety Soc Hx: Cigarette smoker, lives at home PHYSICAL General Appearance: Alert, no distress Eyes: Pupils equal and round no pallor or injection ENT, Mouth: Mucous membranes moist Respiratory: The patient is tachypneic, coughing, with inspiratory and expiratory wheezes Cardiovascular: Regular rate and rhythm Gastrointestinal: Abdomen is soft and non-tender, no masses, bowel sounds normal Neurological: A&O, moves all extremities Skin: Warm and dry, no rashes Musculoskeletal: Neck is supple non tender Extremities: symmetrical, full range of motion Psychiatric: Patient is oriented X 3, there is no agitation Source: Patient, EMS Exam Limitations: No limitations - Personal History Current Tetanus/Diphtheria Vaccine: Yes Current Tetanus Diphtheria and Acellular Pertussis (TDAP): Yes Tetanus Vaccine Date: < 10 YEARS - Medical/Surgical History Hx Asthma: Yes Hx Chronic Respiratory Disease: No Hx Diabetes: No Hx Cardiac Disease: Yes Hx Renal Disease: No Hx Cirrhosis: Yes Hx Alcoholism: Yes Hx HIV/AIDS: No Hx Splenectomy or Spleen Trauma: No Other PMH: MEDICAL- ANXIETY, LIVER DISEASE, ASCITES, IVDA, HEP C+, alcohol and drug abuse/MENTAL HEALTH, htn,cirrohsis, hx of 3 ruptured discs/back surgs/ tonsillectomy - Social History Smoking Status: Heavy smoker Constitutional: Initial Vital Signs Temperature (C) 36.3 C 01/30/17 02:15 Heart Rate 116 H 01/30/17 02:15 Respiratory Rate 26 H 01/30/17 02:15 Blood Pressure 158/107 H 01/30/17 02:15 O2 Sat (%) 88 L 01/30/17 02:15 O2 Delivery Mode Simple Mask O2 (L/minute) 4 Allergies/Adverse Reactions: lisinopril Allergy (Verified 01/24/17 20:46) Home Medications: Medication Instructions Recorded Ibuprofen [Motrin (*)] 600 mg PO DAILY PRN 06/29/16 Sertraline HCl [Zoloft 100mg (*)] 100 mg PO DAILY 06/29/16 Albuterol [Proventil Inhaler HFA 1 - 2 puffs IH Q4H PRN 01/25/17 (*)] Amlodipine Besylate [Norvasc] 10 mg PO DAILY 01/25/17 Chlorthalidone [Chlorthalidone 25 25 mg PO BID 01/25/17 mg (*)] Fluticasone Hfa 220 Mcg [Flovent 1 puffs IH BID #1 mdi 01/29/17 220 MCG Hfa MDI (*)] Nicotine [Nicoderm Cq 21 mg (*)] 21 mg TD DAILY #21 patch 01/29/17 Tiotropium Inhaler [Spiriva 18 mcg IH DAILY #1 mdi 01/29/17 Handihaler] predniSONE 50 mg PO DAILY #15 tablet 01/29/17 Medical Decision Making - Diagnostics Imaging Results: Chest x-ray one view is rotated, demonstrates probable left upper lobe infiltrate, interpreted by me, radiology interpretation pending. ED Course/Re-evaluation: 2:45 a.m.- I met the paramedics at the bedside to obtain report. The patient was started on a DuoNeb with some improvement in his wheezing. He apparently was supposed to be discharged on oxygen, however he does not have any oxygen at home. He is requiring oxygen currently. I will do a chest x-ray and start him on prednisone and an hour long treatment of albuterol. 5:30 a.m.- The patient has received prednisone, DuoNeb, albuterol and is still requiring oxygen to keep sats greater than 90%. He has expiratory wheezes. Chest x-ray reveals probable pneumonia. I have given him cefepime for hospital-acquired pneumonia. He will require admission given his hypoxia and continued symptoms. I have discussed the case with Dr. Turner of the hospitalist service who accepts the patient for admission. Differential Diagnosis: This is a 61-year-old man with history of COPD with recent hospitalization for COPD exacerbation with possible pneumonia presents several hours after his discharge with shortness of breath and hypoxia associated with cough. On exam, he is tachypneic with inspiratory and expiratory wheezes. He is afebrile. Differential diagnosis includes COPD exacerbation, pneumonia, less likely pulmonary embolism. - Data Points Laboratory Results: Laboratory Results 01/30/17 04:30 01/30/17 04:30 01/30/17 01/30/17 04:30 04:30 WBC 19.16 10^3/uL H 10^3/uL (3.80-9.50) RBC 4.82 10^6/uL 10^6/uL (4.40-6.38) Hgb 15.1 g/dL g/dL (13.7-17.5) Hct 44.4 % % (40.0-51.0) MCV 92.1 fL fL (81.5-99.8) MCH 31.3 pg pg (27.9-34.1) MCHC 34.0 g/dL g/dL (32.4-36.7) RDW 13.4 % % (11.5-15.2) Plt Count 345 10^3/uL 10^3/uL (150-400) MPV 9.8 fL fL (8.7-11.7) Neut % (Auto) 76.9 % H % (39.3-74.2) Lymph % (Auto) 8.7 % L % (15.0-45.0) [place] % (Auto) 12.9 % % (4.5-13.0) Eos % (Auto) 0.0 % L % (0.6-7.6) Baso % (Auto) 0.3 % % (0.3-1.7) Nucleat RBC Rel Count 0.0 % % (0.0-0.2) Absolute Neuts (auto) 14.75 10^3/uL H 10^3/uL (1.70-6.50) Absolute Lymphs (auto) 1.66 10^3/uL 10^3/uL (1.00-3.00) Absolute Monos (auto) 2.47 10^3/uL H 10^3/uL (0.30-0.80) Absolute Eos (auto) 0.00 10^3/uL L 10^3/uL (0.03-0.40) Absolute Basos (auto) 0.05 10^3/uL 10^3/uL (0.02-0.10) Absolute Nucleated RBC 0.00 10^3/uL 10^3/uL (0-0.01) Immature Gran % 1.2 % H % (0.0-1.1) Immature Gran # 0.23 10^3/uL H 10^3/uL (0.00-0.10) Sodium 142 mEq/L mEq/L (134-144) Potassium 4.2 mEq/L mEq/L (3.5-5.2) Chloride 103 mEq/L mEq/L (97-110) Carbon Dioxide 29 mEq/l mEq/l (22-31) Anion Gap 10 mEq/L mEq/L (8-16) BUN 12 mg/dL mg/dL (7-23) Creatinine 0.6 mg/dL L mg/dL (0.7-1.3) Estimated GFR > 60 Glucose 144 mg/dL H mg/dL (70-100) Calcium 9.1 mg/dL mg/dL (8.5-10.4) Total Bilirubin 0.5 mg/dL mg/dL (0.1-1.4) AST 30 IU/L IU/L (17-59) ALT 52 IU/L IU/L (21-72) Alkaline Phosphatase 81 IU/L IU/L (38-126) Total Protein 6.8 g/dL g/dL (6.3-8.2) Albumin 3.8 g/dL g/dL (3.5-5.0) Ethyl Alcohol < 10 mg/dL mg/dL (0-10) Medications Given: Discontinued Medications Albuterol/Ipratropium (Duoneb) 6 ml IH EDNOW ONE Stop: 01/30/17 02:11 Last Admin: 01/30/17 02:45 Dose: 6 ml Cefepime HCl 1 gm/ Dextrose 50 mls @ 100 mls/hr IV EDNOW ONE PRN Reason: Protocol Stop: 01/30/17 05:15 Last Admin: 01/30/17 05:06 Dose: 50 mls Prednisone (Prednisone) 60 mg PO EDNOW ONE Stop: 01/30/17 02:15 Last Admin: 01/30/17 02:26 Dose: 60 mg Departure - Departure Disposition: [facility] Inpatient Acute Clinical Impression: Chronic obstructive pulmonary disease with acute exacerbation, Hypoxia Pneumonia Qualifiers: Pneumonia type: due to unspecified organism Laterality: left Lung location: upper lobe of lung Qualified Code(s): J18.1 - Lobar pneumonia, unspecified organism Leukocytosis Qualifiers: Leukocytosis type: other Qualified Code(s): D72.828 - Other elevated white blood cell count Condition: Fair
[2017-01-30] MEDS ORDERED: CEFEPIME HCL 1 GM in D5W 50 ML IV ONE (04:46)
[2017-01-30 04:57] LABS: % IMMATURE GRANULYOCYTES 1.2 % (0.0-1.1); ABSOLUTE IMMATURE GRANULOCYTES 0.23 10^3/uL (0.00-0.10); ADD DIFF? NO; ADD MORPH? NO; ADD SCAN? NO; ATYPICAL LYMPHOCYTE FLAG 0 (0-99); FRAGMENT RBC FLAG 0 (0-99); HEMATOCRIT 44.4 % (40.0-51.0); HEMOGLOBIN 15.1 g/dL (13.7-17.5); LEFT SHIFT FLG 20 (0-99); LIPEMIA HEMOLYSIS FLAG 90 (0-99); MEAN CELL HEMOGLOBIN 31.3 pg (27.9-34.1); MEAN CELL VOLUME 92.1 fL (81.5-99.8); MEAN PLATELET VOLUME 9.8 fL (8.7-11.7); PLATELET CLUMPS FLAG 0 (0-99); PLATELET COUNT 345 10^3/uL (150-400); RED BLOOD CELL COUNT 4.82 10^6/uL (4.40-6.38); RED CELL DISTRIBUTION WIDTH 13.4 % (11.5-15.2)
[2017-01-30 05:10] LABS: ALANINE AMINOTRANSFERASE 52 IU/L (21-72); ALBUMIN 3.8 g/dL (3.5-5.0); ALKALINE PHOSPHATASE 81 IU/L (38-126); ANION GAP 10 mEq/L (8-16); ASPARTATE AMINOTRANSFERASE 30 IU/L (17-59); BILIRUBIN,TOTAL 0.5 mg/dL (0.1-1.4); CALCIUM 9.1 mg/dL (8.5-10.4); CARBON DIOXIDE 29 mEq/l (22-31); CHLORIDE 103 mEq/L (97-110); CREATININE 0.6 mg/dL (0.7-1.3); ETHANOL SERUM < 10 mg/dL (0-10); GLOMERULAR FILTRATION RATE > 60; GLUCOSE 144 mg/dL (70-100); POTASSIUM 4.2 mEq/L (3.5-5.2); SODIUM 142 mEq/L (134-144); TOTAL PROTEIN 6.8 g/dL (6.3-8.2)
[2017-01-30] MEDS ORDERED: ONDANSETRON DISINTEGRATING 4 MG TAB PO PRN (06:55)
[2017-01-30] MEDS ORDERED: NICOTINE POLACRILEX 2 MG GUM B PRN (06:55)
[2017-01-30] MEDS ORDERED: ONDANSETRON 4 MG/2 ML VIAL IVP PRN (06:55)
[2017-01-30] MEDS ORDERED: VANCOMYCIN HCL/NORMAL SALINE 250 ML IV SCH (07:00)
--- NOTE | 2017-01-30 07:52 | PDGENHP ---
History and Physical - Chief Complaint acute shortness of breath - History of Present Illness PCP: Kelvin Primary american history teacher: Dr. Stearns Primary psychiatrist: [facility] HPI: 61-year-old M p/w acute shortness of breath characterized as difficulty taking a deep breath with associated subjective fevers and chills, nonproductive cough, onset of symptoms as soon as he arrived home after he was discharged yesterday. The patient reports that supplemental oxygen was not delivered to his home so he has not been using oxygen since he left the hospital yesterday. He attempted to alleviate his symptoms with albuterol inhaler, to no avail. He reports that his shortness of breath is exacerbated by any physical activity, rendering him unable to complete ADLs. EMS reported that the patient's SpO2 was 82% on room air and he was visibly tachypneic. Upon arrival to the emergency department, he received duo nebs and prednisone, and reports that his symptoms were mildly alleviated. History Information - Allergies/Home Medication List Allergies/Adverse Reactions: lisinopril Allergy (Verified 01/24/17 20:46) Home Medications: Ibuprofen [Motrin (*)] 600 mg PO DAILY PRN 06/29/16 [Last Taken 06/28/16] Sertraline HCl [Zoloft 100mg (*)] 100 mg PO DAILY 06/29/16 [Last Taken 06/28/16] Albuterol [Proventil Inhaler HFA (*)] 1 - 2 puffs IH Q4H PRN 01/25/17 [Last Taken Unknown] Amlodipine Besylate [Norvasc] 10 mg PO DAILY 01/25/17 [Last Taken Unknown] Chlorthalidone [Chlorthalidone 25 mg (*)] 25 mg PO BID 01/25/17 [Last Taken Unknown] I have personally reviewed and updated: family history, medical history, social history, surgical history - Past Medical History COPD ( Recently experiencing acute COPD exacerbation), hypertension Additional medical history: HTN. COPD. Schizoaffective disorder. Anxiety disorder. Hepatitis C, s/p Harvoni treatment. h/o chronic alcohol use. h/o IV drug abuse - Surgical History Reports: no pertinent surgical hx - Family History Additional family history: denies any recent sick family contacts, denies any recent contact with family - Social History Smoking Status: Heavy smoker (patient reportedly smokes 3 cigarettes upon returning home yesterday) Alcohol Use: Heavy (patient reports his last alcohol use was 13 hours ago) Drug Use: Other ( history of IV drug use, none presently) Additional social history: Pt lives alone, is independent in ADLs. Review of Systems ROS: 10pt was reviewed & negative except for what was stated in HPI & below Constitutional: Reports: chills, fever Respiratory: Reports: cough, shortness of breath Physical Exam Temp Pulse Resp BP Pulse Ox 36.6 C 97 17 147/96 H 92 01/30/17 06:32 01/30/17 06:32 01/30/17 06:32 01/30/17 06:32 01/30/17 06:32 O2 (L/minute) 4.5 Constitutional: no apparent distress, not in pain, chronically ill appearing, No uncomfortable Eyes: PERRL, anicteric sclera, EOMI Ears, Nose, Mouth, Throat: moist mucous membranes, hearing normal, ears appear normal, no oral mucosal ulcers Cardiovascular: regular rate and rhythym, no murmur, rub, or gallop, No edema Respiratory: expiratory wheeze, bronchial breath sounds, rhonchi ( left mid posterior segment), other ( tachypnea at rest) Gastrointestinal: normoactive bowel sounds, soft, non-tender abdomen, no palpable masses, distension ( moderate) Skin: warm, normal color, no rashes or abrasions, no fluctuance, no induration, No mottled Neurologic: AAOx3, No facial droop Psychiatric: not anxious, not encephalopathic, thought process linear ( but lethargic), other ( concentration 7/7) Lab Data & Imaging Review 01/30/17 04:30 01/30/17 04:30 WBC 19.16 10^3/uL (3.80-9.50) H 01/30/17 04:30 RBC 4.82 10^6/uL (4.40-6.38) 01/30/17 04:30 Hgb 15.1 g/dL (13.7-17.5) 01/30/17 04:30 Hct 44.4 % (40.0-51.0) 01/30/17 04:30 MCV 92.1 fL (81.5-99.8) 01/30/17 04:30 MCH 31.3 pg (27.9-34.1) 01/30/17 04:30 MCHC 34.0 g/dL (32.4-36.7) 01/30/17 04:30 RDW 13.4 % (11.5-15.2) 01/30/17 04:30 Plt Count 345 10^3/uL (150-400) 01/30/17 04:30 MPV 9.8 fL (8.7-11.7) 01/30/17 04:30 Neut % (Auto) 76.9 % (39.3-74.2) H 01/30/17 04:30 Lymph % (Auto) 8.7 % (15.0-45.0) L 01/30/17 04:30 Elbert % (Auto) 12.9 % (4.5-13.0) 01/30/17 04:30 Eos % (Auto) 0.0 % (0.6-7.6) L 01/30/17 04:30 Baso % (Auto) 0.3 % (0.3-1.7) 01/30/17 04:30 Nucleat RBC Rel Count 0.0 % (0.0-0.2) 01/30/17 04:30 Absolute Neuts (auto) 14.75 10^3/uL (1.70-6.50) H 01/30/17 04:30 Absolute Lymphs (auto) 1.66 10^3/uL (1.00-3.00) 01/30/17 04:30 Absolute Monos (auto) 2.47 10^3/uL (0.30-0.80) H 01/30/17 04:30 Absolute Eos (auto) 0.00 10^3/uL (0.03-0.40) L 01/30/17 04:30 Absolute Basos (auto) 0.05 10^3/uL (0.02-0.10) 01/30/17 04:30 Absolute Nucleated RBC 0.00 10^3/uL (0-0.01) 01/30/17 04:30 Immature Gran % 1.2 % (0.0-1.1) H 01/30/17 04:30 Immature Gran # 0.23 10^3/uL (0.00-0.10) H 01/30/17 04:30 Sodium 142 mEq/L (134-144) 01/30/17 04:30 Potassium 4.2 mEq/L (3.5-5.2) 01/30/17 04:30 Chloride 103 mEq/L (97-110) 01/30/17 04:30 Carbon Dioxide 29 mEq/l (22-31) 01/30/17 04:30 Anion Gap 10 mEq/L (8-16) 01/30/17 04:30 BUN 12 mg/dL (7-23) 01/30/17 04:30 Creatinine 0.6 mg/dL (0.7-1.3) L 01/30/17 04:30 Estimated GFR > 60 01/30/17 04:30 Glucose 144 mg/dL (70-100) H 01/30/17 04:30 Calcium 9.1 mg/dL (8.5-10.4) 01/30/17 04:30 Total Bilirubin 0.5 mg/dL (0.1-1.4) 01/30/17 04:30 AST 30 IU/L (17-59) 01/30/17 04:30 ALT 52 IU/L (21-72) 01/30/17 04:30 Alkaline Phosphatase 81 IU/L (38-126) 01/30/17 04:30 Total Protein 6.8 g/dL (6.3-8.2) 01/30/17 04:30 Albumin 3.8 g/dL (3.5-5.0) 01/30/17 04:30 Ethyl Alcohol < 10 mg/dL (0-10) 01/30/17 04:30 Visualized and Interpreted Chest x-ray results: Yes Chest X-Ray results: other ( increased infiltrate in the left upper lobe) Assessment & Plan Assessment: 61-year-old male presents with acute worsening of COPD exacerbation, suspected healthcare associated pneumonia Plan: 1. COPD exacerbation. Acute worsening, evidenced by diffuse expiratory wheezes and bronchial breath sounds in the setting of suspected infection - patient's situation was further exacerbated by him not receiving supplemental oxygen at home after discharge - reviewed outside records including 01/29/[address] Deepika Sow, she reports that the patient was ordered for supplemental oxygen prior to discharge, he was requiring 3 liters/minute at that time, also discharged with Spiriva and Flovent as well as as needed albuterol and prednisone 50 mg daily with taper - discussed with Dr. Paz in the emergency department, she has reported that the patient was visibly tachypneic and experiencing respiratory distress upon presentation, consideration was given to BiPAP therapy but the patient's situation improved clinically with duo nebs and dose of 60 mg prednisone - continue scheduled duo nebs, give additional 60 mg of oral prednisone this morning as his 1st dose was at 2:00 a.m., continue 60 mg at this time - the patient will require confirmation of home oxygen delivery prior to this discharge 2. Suspected healthcare associated pneumonia. acute, new problem this provider, further workup indicated. Evidenced by subjective fevers and chills, new left upper lobe infiltrate on chest x-ray, acute rise in white blood cell counts despite no adjustments in recent prednisone dosing - get noncontrast chest CT to further define consolidation - high risk for healthcare associated organisms given recent hospitalization, cover for possible Gram-negative rods/Pseudomonas with Zosyn, possible MRSA with vancomycin - it is possible that patient's recent COPD exacerbation was secondary to a viral precipitant, so this could be a bacterial superinfection - send sputum culture, send urine Legionella, send urine strep, send HIV test given history of IV drug use, send respiratory viral panel 3. Schizoaffective disorder. Chronic, currently stable, the patient was recently placed on M1 hold for suicidal ideation prior to his most recent hospitalization, the patient is currently denying any suicidal ideation - he has outpatient follow-up at [facility] 4. Hypertension. Chronic, continue home medications once reconciled Diet. Regular Prophylaxis. High risk patient, Lovenox 40 Code. Full Disposition. Anticipated discharge is 01/31/2017, pending further workup and stabilization of conditions outlined above. If patient requires ongoing extended hospitalization, he should be upgraded to inpatient admission status tomorrow.
[2017-01-30] MEDS: IPRATROPIUM/ALBUTEROL 3 ML DEYVIAL IH SCH ×4 (07:53→19:59)
[2017-01-30] MEDS: VANCOMYCIN HCL/NORMAL SALINE 250 ML IV SCH ×2 (09:16→21:13)
[2017-01-30] MEDS: ENOXAPARIN 40 MG/0.4 ML SYR SC SCH (09:17)
[2017-01-30] MEDS: NICOTINE 21 MG/24 HR PATCH TD SCH (09:17)
[2017-01-30] MEDS: predniSONE 20 MG TAB PO SCH (09:17)
[2017-01-30] MEDS: NS 1,000 ML IV SCH (09:32)
[2017-01-30] MEDS: PIPERACILLIN/TAZO 4.5 GM/DEX 100 ML IV SCH ×2 (12:43→17:31)
--- NOTE | 2017-01-30 16:20 | HOSPPROG ---
Hospitalist Progress Note Assessment/Plan: 61-year-old male presents with acute worsening of COPD exacerbation\ 1. Acute hypoxemic respiratory failure discharged from [facility] yesterday - chest CT was reviewed showing bilateral diffuse ground-glass opacities. I discussed this finding with Dr. Jimenez will see the patient in consultation. - We will continue steroids, and IV antibiotics as ordered by Dr. Turner pending pulmonology evaluation 2. bilateral diffuse ground-glass infiltrate seen on chest CT - see plan as per above 3. Schizoaffective disorder. Chronic, currently stable, the patient was recently placed on M1 hold for suicidal ideation prior to his most recent hospitalization, the patient is currently denying any suicidal ideation - he has outpatient follow-up at [facility] 4. Hypertension. Chronic, continue home medications once reconciled Diet. Regular Prophylaxis. High risk patient, Lovenox 40 Code. Full Disposition. Anticipated discharge is 01/31/2017, pending further workup and stabilization of conditions outlined above. If patient requires ongoing extended hospitalization, he should be upgraded to inpatient admission status tomorrow. Objective: Vital Signs Temp Pulse Resp BP Pulse Ox 36.6 C 91 18 160/109 H 91 L 01/30/17 12:06 01/30/17 14:52 01/30/17 12:06 01/30/17 15:14 01/30/17 14:52 01/29/17 01/30/17 01/31/17 05:59 05:59 05:59 Intake Total 50 Output Total 700 Balance -650 ICD10 Worksheet Patient Problems: Problems Problem Status Onset Schizoaffective disorder, bipolar type Acute Alcohol dependence with physiological dependence, episodic Acute COPD exacerbation Acute Anxiety Acute RANDAL (acute kidney injury) Acute Nausea vomiting and diarrhea Acute Alcoholism Acute Hyponatremia Acute Leukocytosis Acute Elevated bilirubin Acute Hypokalemia Acute Lactic acidosis Acute Alcohol intoxication Acute Leg edema Acute Hand edema Acute Suicidal ideation Acute Pneumonia Acute Chronic obstructive pulmonary disease with acute exacerbation Acute Pneumonia Acute Hypoxia Acute Leukocytosis Acute
[2017-01-30] MEDS: ACETAMINOPHEN 325 MG TAB PO PRN (17:31)
[2017-01-30] MEDS ORDERED: LORazepam 1 MG TAB PO PRN (18:06)
[2017-01-30 18:25] LABS: RESPPCR RESULT SEE COMMENTS
[2017-01-30] MEDS: CHLORTHALIDONE 25 MG TAB PO SCH (21:13)
[2017-01-30] MEDS ORDERED: LORazepam 0.5 MG TAB PO ONE (22:03)
[2017-01-31] MEDS: LORazepam 1 MG TAB PO PRN ×6 (00:40→22:21)
[2017-01-31] MEDS: ACETAMINOPHEN 325 MG TAB PO PRN (01:28)
[2017-01-31] MEDS: PIPERACILLIN/TAZO 4.5 GM/DEX 100 ML IV SCH ×5 (01:28→22:20)
[2017-01-31 06:00] LABS: % IMMATURE GRANULYOCYTES 1.4 % (0.0-1.1); ABSOLUTE IMMATURE GRANULOCYTES 0.24 10^3/uL (0.00-0.10); ADD DIFF? NO; ADD MORPH? NO; ADD SCAN? NO; ATYPICAL LYMPHOCYTE FLAG 0 (0-99); FRAGMENT RBC FLAG 0 (0-99); HEMATOCRIT 41.1 % (40.0-51.0); HEMOGLOBIN 13.9 g/dL (13.7-17.5); LEFT SHIFT FLG 20 (0-99); LIPEMIA HEMOLYSIS FLAG 90 (0-99); MEAN CELL HEMOGLOBIN CONCENTR. 33.8 g/dL (32.4-36.7); MEAN CELL VOLUME 91.7 fL (81.5-99.8); MEAN PLATELET VOLUME 9.6 fL (8.7-11.7); PLATELET CLUMPS FLAG 0 (0-99); PLATELET COUNT 318 10^3/uL (150-400); RED BLOOD CELL COUNT 4.48 10^6/uL (4.40-6.38); RED CELL DISTRIBUTION WIDTH 13.6 % (11.5-15.2)
[2017-01-31] MEDS: IPRATROPIUM/ALBUTEROL 3 ML DEYVIAL IH SCH ×4 (06:10→20:28)
[2017-01-31 06:12] LABS: ANION GAP 7 mEq/L (8-16); CALCIUM 7.9 mg/dL (8.5-10.4); CARBON DIOXIDE 26 mEq/l (22-31); CHLORIDE 104 mEq/L (97-110); CREATININE 0.6 mg/dL (0.7-1.3); GLOMERULAR FILTRATION RATE > 60; GLUCOSE 188 mg/dL (70-100); POTASSIUM 3.3 mEq/L (3.5-5.2); SODIUM 137 mEq/L (134-144)
[2017-01-31] MEDS: CHLORTHALIDONE 25 MG TAB PO SCH ×2 (09:34→22:20)
[2017-01-31] MEDS: AZITHROMYCIN IV 500 MG in D5W 250 ML IV SCH (09:34)
[2017-01-31] MEDS: predniSONE 20 MG TAB PO SCH (09:34)
[2017-01-31] MEDS: amLODIPine BESYLATE 5 MG TAB PO SCH (09:34)
[2017-01-31] MEDS: SERTRALINE HCL 100 MG TAB PO SCH (09:35)
[2017-01-31] MEDS: NICOTINE 21 MG/24 HR PATCH TD SCH (09:36)
[2017-01-31] MEDS: ENOXAPARIN 40 MG/0.4 ML SYR SC SCH (09:36)
[2017-01-31] MEDS: NS 1,000 ML IV SCH (09:48)
[2017-01-31] MEDS ORDERED: ALTEPLASE 2 MG VIAL IVP PRN (10:48)
--- NOTE | 2017-01-31 15:37 | HOSPPROG ---
Hospitalist Progress Note Assessment/Plan: 61-year-old male presents with acute worsening of COPD exacerbation 1. Acute hypoxemic respiratory failure discharged from [facility] on 01/29/2017 with persistent wheezing and shortness of breath - chest CT was reviewed showing bilateral diffuse ground-glass opacities. I discussed this finding with Dr. Jimenez who would like to continue steroids, Zosyn, and vancomycin pending culture results. If his blood cultures remain negative tomorrow I think it would be reasonable to discontinue the vancomycin 2. bilateral diffuse ground-glass infiltrate seen on chest CT - see plan as per above 3. Schizoaffective disorder. Chronic, currently stable, the patient was recently placed on M1 hold for suicidal ideation prior to his most recent hospitalization, the patient is currently denying any suicidal ideation - he has outpatient follow-up at [facility] 4. Hypertension. Chronic, continue home medications Diet. Regular Prophylaxis. High risk patient, Lovenox 40 Code. Full Disposition. will change to inpatient status since continues to have severe bilateral wheezing and respiratory failure requiring further inpatient treatment and evaluation Subjective: continues to have severe shortness of breath and wheezing. Denies fevers or chills. Nonproductive cough Objective: Vital Signs Temp Pulse Resp BP Pulse Ox 36.6 C 99 26 H 148/108 H 92 01/31/17 12:41 01/31/17 12:41 01/31/17 12:41 01/31/17 12:41 01/31/17 12:41 Microbiology 01/30/17 16:40 - Final Sputum, Expectorated Laboratory Results 01/31/17 05:45 01/31/17 05:45 01/30/17 01/31/17 02/01/17 05:59 05:59 05:59 Intake Total 4556 1200 Output Total 6652 9385 Balance -5721 -513 - Physical Exam Constitutional: chronically ill appearing Eyes: PERRL, anicteric sclera, EOMI Ears, Nose, Mouth, Throat: moist mucous membranes, hearing normal, ears appear normal, no oral mucosal ulcers Cardiovascular: regular rate and rhythym, no murmur, rub, or gallop Respiratory: reduced air movement, expiratory wheeze, respiratory distress, No inspiratory crackles Gastrointestinal: normoactive bowel sounds, soft, non-tender abdomen, no palpable masses, No guarding, No rebound Genitourinary: no bladder fullness, no bladder tenderness, no renal bruits Skin: no rashes or abrasions, no fluctuance, no induration Neurologic: AAOx3, CN II-XII Intact, No facial droop ICD10 Worksheet Patient Problems: Problems Problem Status Onset Schizoaffective disorder, bipolar type Acute Alcohol dependence with physiological dependence, episodic Acute COPD exacerbation Acute Anxiety Acute RANDAL (acute kidney injury) Acute Nausea vomiting and diarrhea Acute Alcoholism Acute Hyponatremia Acute Leukocytosis Acute Elevated bilirubin Acute Hypokalemia Acute Lactic acidosis Acute Alcohol intoxication Acute Leg edema Acute Hand edema Acute Suicidal ideation Acute Pneumonia Acute Chronic obstructive pulmonary disease with acute exacerbation Acute Pneumonia Acute Hypoxia Acute Leukocytosis Acute
[2017-01-31] MEDS: VANCOMYCIN HCL/NORMAL SALINE 250 ML IV SCH ×2 (16:49→16:50)
[2017-01-31] MEDS ORDERED: PIPERACILLIN/TAZO 4.5 GM/DEX 100 ML IV SCH (18:00)
[2017-02-01] MEDS: LORazepam 1 MG TAB PO PRN ×6 (02:08→23:07)
[2017-02-01] MEDS: ACETAMINOPHEN 325 MG TAB PO PRN (02:56)
--- NOTE | 2017-02-01 03:32 | GCON ---
[f rep st] CONSULTATION PULMONARY CONSULTATION DATE OF CONSULTATION: 01/31/2017 REASON FOR CONSULTATION: COPD exacerbation, bronchopneumonia. HISTORY: The patient is a 61-year-old gentleman with a long history of significant tobacco abuse wh marguerite was discharged from the hospital earlier in the day yesterday and came back in 2 hours later with persistent and worsening shortness of breath. He was hypoxemic, wheezing, with an x-ray and subsequ ent CAT scan showed bilateral patchy pulmonary infiltrates. He had just completed 5 days of Levaqui n here in the hospital, was discharged on Solu-Medrol. Oxygen was being arranged but apparently had not been brought out. During his previous hospitalization, he was felt to have a right lower lobe pneumonia. CT scan was not done at that time. He did have a CT scan in September of [address] [facility] which did not show evidence of pneumonia. The patient has multiple medical problems, as outlined above. He continues to smoke cigarettes acti vely. He has significant problems with alcohol abuse and has been seen a number times in the emerge ncy department for alcohol withdrawal symptoms. He has not been drinking recently secondary to the fact that he has been in the hospital. Dr. Stearns saw him on his previous admission. PAST MEDICAL HISTORY: Remarkable for COPD and chronic alcoholism as noted above. He has a history of schizoaffective disorder and is disabled secondary to this, chronic pancreatitis, cirrhosis, cerv ical lumbar spinal disease and chronic pain, anxiety, suicidal ideation in the past, and hypoxemia. DRUG ALLERGIES: Lisinopril. SOCIAL HISTORY: Patient lives alone in [place]. He has his own apartment and cares for himself. Som ag has a house keeper there. He states he has no family and few friends. He continues to smoke 1-1/ 2 or more packs of cigarettes per day. He drinks alcohol heavily intermittently. By report, he is college educated in the past, with a master's degree. He has been disabled secondary to his schizoa ffective disorder for at least 10 years. FAMILY HISTORY: Unavailable. REVIEW OF SYSTEMS: A 10-point review of systems is negative except as mentioned above. He states som ag remains short of breath but feels somewhat better compared to his admission. PHYSICAL EXAMINATION: GENERAL: Reveals a gentleman who appears older than his stated age. VITAL SIGNS: Blood pressure is 150/100, respiratory rate 24. On 5 L saturations are 94%. He is af ebrile. HEENT: Unremarkable for lymphadenopathy or thyromegaly. There is no obvious jugular venous distent ion. Mucous membranes are moist. There is mild nasal congestion. CHEST: Reveals decreased breath sounds bilaterally with coarse wheezes and a prolonged expiratory p hase. With cough there are some central rhonchi. HEART: Tachycardic at approximately 100. Heart tones are distant. There is a soft systolic murmur . ABDOMEN: Overweight, soft nontender. Bowel sounds are present. There is no obvious tenderness. EXTREMITIES: Remarkable for 1+ lower extremity edema. There are no significant rashes, no lesions. NEUROLOGIC: Status is nonfocal. He is oriented x3. DATABASE: CT scan of the chest as outlined above with bilateral patchy ground-glass opacities. The se are somewhat more prominent in the left upper lobe. LABORATORY DATA: White blood cell count of 17,200; hematocrit 41, platelets are normal. Blood lact ate on admission was 1.5. Sodium is 137, potassium 3.3, BUN 13 with creatinine 0.6. Glucose is monique vated 188, calcium 7.9. BNP is 562. Blood alcohol was negative on admission. Influenza A/B is neg ative by PCR. Respiratory viral panel is negative. Urine Legionella antigen is negative. Streptoc occal antigen is pending. ASSESSMENT: 1. Bronchopneumonia. He is being covered broadly secondary to possible hospital acquired pneumonia based on his recent admission here. Coverage for atypicals with azithromycin should be given and w ill be continued. If cultures are negative after 72 hours vancomycin can be discontinued. Zosyn ca n be continued. 2. Chronic obstructive pulmonary disease exacerbation. He has a significant exacerbation with ongo ing wheezing. Presumably secondary to his bronchopneumonia. Changes are more significant on CAT sc an than on x-ray. He is on steroids and bronchodilator therapy. Antibiotics are appropriate as out lined above. 3. Hypoxemia. He is on full 5 L of oxygen. He again will need oxygen on discharge. This had not yet been set up when he was discharged from the hospital a couple of days ago. Pulmonary followup w chris myself or Dr. Stearns also will be needed in the future. 4. History of other medical problems as outlined above, including schizoaffective disorder, reflux, etc. His usual outpatient medications should be continued. PLAN AND RECOMMENDATIONS: The patient will be kept in the hospital. Prednisone will be given at 60 mg per day. If wheezing does not improve over the next 24-48 hours this may need to be increased o r switched to Solu-Medrol at a higher dose. Antibiotics will be continued. Bronchodilator therapy will be continued. Chest x-ray will be followed intermittently. Further serologies will be awaited . Enoxaparin will be continued and Pepcid given for reflux. His usual outpatient medications will be continued. Further plans recommendations will be made based on his progress over the next 12-24 hours. /[id number]/MODL
[2017-02-01] MEDS: PIPERACILLIN/TAZO 4.5 GM/DEX 100 ML IV SCH ×4 (05:12→21:12)
[2017-02-01] MEDS: VANCOMYCIN HCL/NORMAL SALINE 250 ML IV SCH (05:13)
[2017-02-01 05:34] LABS: ADD DIFF? YES; ADD MORPH? NO; ADD SCAN? NO; ATYPICAL LYMPHOCYTE FLAG 0 (0-99); FRAGMENT RBC FLAG 0 (0-99); HEMATOCRIT 40.2 % (40.0-51.0); HEMOGLOBIN 13.7 g/dL (13.7-17.5); LEFT SHIFT FLG 40 (0-99); LIPEMIA HEMOLYSIS FLAG 90 (0-99); MEAN CELL HEMOGLOBIN 30.9 pg (27.9-34.1); MEAN CELL HEMOGLOBIN CONCENTR. 34.1 g/dL (32.4-36.7); MEAN CELL VOLUME 90.5 fL (81.5-99.8); MEAN PLATELET VOLUME 9.6 fL (8.7-11.7); PLATELET CLUMPS FLAG 0 (0-99); PLATELET COUNT 310 10^3/uL (150-400); RED BLOOD CELL COUNT 4.44 10^6/uL (4.40-6.38); RED CELL DISTRIBUTION WIDTH 13.3 % (11.5-15.2)
[2017-02-01 05:54] LABS: ANION GAP 6 mEq/L (8-16); CARBON DIOXIDE 32 mEq/l (22-31); CHLORIDE 99 mEq/L (97-110); CREATININE 0.6 mg/dL (0.7-1.3); GLOMERULAR FILTRATION RATE > 60; GLUCOSE 116 mg/dL (70-100); POTASSIUM 3.6 mEq/L (3.5-5.2); SODIUM 137 mEq/L (134-144)
[2017-02-01] MEDS: IPRATROPIUM/ALBUTEROL 3 ML DEYVIAL IH SCH ×2 (06:11→11:24)
[2017-02-01 07:02] LABS: PLATELET ESTIMATE ADEQUATE (ADEQ)
[2017-02-01] MEDS: predniSONE 20 MG TAB PO SCH (09:41)
[2017-02-01] MEDS: CHLORTHALIDONE 25 MG TAB PO SCH ×2 (09:47→21:12)
[2017-02-01] MEDS: NICOTINE 21 MG/24 HR PATCH TD SCH (09:48)
[2017-02-01] MEDS: amLODIPine BESYLATE 5 MG TAB PO SCH (09:48)
[2017-02-01] MEDS: ENOXAPARIN 40 MG/0.4 ML SYR SC SCH (09:49)
[2017-02-01] MEDS: AZITHROMYCIN IV 500 MG in D5W 250 ML IV SCH (09:49)
[2017-02-01] MEDS: SERTRALINE HCL 100 MG TAB PO SCH (09:52)
--- NOTE | 2017-02-01 11:20 | HOSPPROG ---
Hospitalist Progress Note Assessment/Plan: 61-year-old male presents with acute worsening of COPD exacerbation * Acute hypoxemic respiratory failure discharged from [facility] on 01/29/2017 with persistent wheezing and shortness of breath * chest CT was reviewed showing bilateral diffuse ground-glass opacities * cultures negative so far. Will discontinue vancomycin * seems to be getting better * continue Zosyn and azithromycin * COPD exacerbation * continue prednisone and nebulizer * bilateral diffuse ground-glass infiltrate seen on chest CT - see plan as per above * Schizoaffective disorder. Chronic, currently stable, the patient was recently placed on M1 hold for suicidal ideation prior to his most recent hospitalization, the patient is currently denying any suicidal ideation - he has outpatient follow-up at [facility] * Hypertension. Chronic, continue home medications Subjective: Breathing feels little bit better. Still coughing Objective: Vital Signs Temp Pulse Resp BP Pulse Ox 37.0 C 104 H 33 H 152/114 H 90 L 02/01/17 09:43 02/01/17 09:43 02/01/17 09:43 02/01/17 09:48 02/01/17 09:43 Laboratory Results 02/01/17 05:20 02/01/17 05:20 01/31/17 02/01/17 02/02/17 05:59 05:59 05:59 Intake Total 3597 140 Output Total 1900 550 Balance 1697 -410 CT scan personally viewed interpreted - Physical Exam Constitutional: no apparent distress, appears nourished, not in pain Eyes: anicteric sclera, EOMI Ears, Nose, Mouth, Throat: moist mucous membranes, hearing normal, ears appear normal Cardiovascular: regular rate and rhythym, no murmur, rub, or gallop Respiratory: no respiratory distress, other ( coarse expiratory wheezes and scattered rhonchi) Gastrointestinal: normoactive bowel sounds, soft, non-tender abdomen, no palpable masses Skin: warm Neurologic: AAOx3 Psychiatric: interacting appropriately, not anxious, not encephalopathic, thought process linear ICD10 Worksheet Patient Problems: Problems Problem Status Onset Chronic obstructive pulmonary disease with acute exacerbation Acute Hypoxia Acute Leukocytosis Acute Pneumonia Acute RANDAL (acute kidney injury) Acute Alcohol dependence with physiological dependence, episodic Acute Alcohol intoxication Acute Alcoholism Acute Anxiety Acute COPD exacerbation Acute Elevated bilirubin Acute Hand edema Acute Hypokalemia Acute Hyponatremia Acute Lactic acidosis Acute Leg edema Acute Leukocytosis Acute Nausea vomiting and diarrhea Acute Pneumonia Acute Schizoaffective disorder, bipolar type Acute Suicidal ideation Acute
[2017-02-01] MEDS: NS 1,000 ML IV SCH (17:25)
[2017-02-01] MEDS ORDERED: FUROSEMIDE 20 MG/2 ML VIAL IVP ONE (18:30)
--- NOTE | 2017-02-01 19:40 | SOAPPROG ---
SOAP Progress Note Assessment/Plan: Assessment: Bilateral pneumonia, with patchy ground-glass opacities. Consistent with under treated/partially treated infection from last admission. Clinically doing better today. Chronic obstructive pulmonary disease, with significant exacerbation. Improved today, less wheezing. Of History of tobacco abuse, alcohol abuse. Schizoaffective disorder. Plan: Continue present antibiotics, steroids and bronchodilator therapies. Will follow. I anticipate he will need 2-3 days more of hospitalization secondary to the severity of his underlying disease and this exacerbation. Will repeat chest x-ray in a couple a days. Subjective: Feels better today. Less short of breath, less wheezing. Still coughing, bringing up some phlegm. Denies chest pain. Objective: Vital Signs Temp Pulse Resp BP Pulse Ox 36.7 C 118 H 24 H 105/63 90 L 02/01/17 19:28 02/01/17 19:28 02/01/17 19:28 02/01/17 19:28 02/01/17 19:28 Laboratory Results 02/01/17 05:20 02/01/17 05:20 01/31/17 02/01/17 02/02/17 05:59 05:59 05:59 Intake Total 3597 2505 Output Total 1900 1675 Balance 1697 830 Physical Exam - Physical Exam General Appearance: alert, no apparent distress, obese, other (Up in chair) EENT: other (Nasal cannula 2-3 L) Neck: normal inspection Respiratory: decreased breath sounds, rales (Scattered, primarily by basilar rales), rhonchi (Few with cough), wheezing (Much improved compared to yesterday. Expiratory wheezes persists), prolonged expiration Abdomen: normal bowel sounds, non-tender, soft (Overweight) Skin: normal color, warm/dry Extremities: pedal edema (Trace +) Neuro/Psych: no motor/sensory deficits, No cognition abnormalities ICD10 Worksheet Patient Problems: Problems Problem Status Onset Schizoaffective disorder, bipolar type Acute Alcohol dependence with physiological dependence, episodic Acute COPD exacerbation Acute Anxiety Acute RANDAL (acute kidney injury) Acute Nausea vomiting and diarrhea Acute Alcoholism Acute Hyponatremia Acute Leukocytosis Acute Elevated bilirubin Acute Hypokalemia Acute Lactic acidosis Acute Alcohol intoxication Acute Leg edema Acute Hand edema Acute Suicidal ideation Acute Pneumonia Acute Chronic obstructive pulmonary disease with acute exacerbation Acute Pneumonia Acute Hypoxia Acute Leukocytosis Acute
[2017-02-01] MEDS: IPRATROPIUM/ALBUTEROL 3 ML DEYVIAL IH PRN (23:46)
[2017-02-02] MEDS: ACETAMINOPHEN 325 MG TAB PO PRN (00:29)
[2017-02-02] MEDS: PIPERACILLIN/TAZO 4.5 GM/DEX 100 ML IV SCH ×4 (04:45→21:37)
[2017-02-02 05:11] LABS: ANION GAP 8 mEq/L (8-16); CALCIUM 8.9 mg/dL (8.5-10.4); CARBON DIOXIDE 36 mEq/l (22-31); CHLORIDE 95 mEq/L (97-110); CREATININE 0.7 mg/dL (0.7-1.3); GLOMERULAR FILTRATION RATE > 60; GLUCOSE 145 mg/dL (70-100); POTASSIUM 3.7 mEq/L (3.5-5.2); SODIUM 139 mEq/L (134-144)
[2017-02-02 05:20] LABS: ADD DIFF? YES; ADD MORPH? NO; ADD SCAN? NO; ATYPICAL LYMPHOCYTE FLAG 0 (0-99); FRAGMENT RBC FLAG 0 (0-99); HEMOGLOBIN 15.1 g/dL (13.7-17.5); LEFT SHIFT FLG 20 (0-99); LIPEMIA HEMOLYSIS FLAG 90 (0-99); MEAN CELL HEMOGLOBIN 31.3 pg (27.9-34.1); MEAN CELL HEMOGLOBIN CONCENTR. 34.3 g/dL (32.4-36.7); MEAN CELL VOLUME 91.3 fL (81.5-99.8); MEAN PLATELET VOLUME 9.9 fL (8.7-11.7); PLATELET CLUMPS FLAG 10 (0-99); PLATELET COUNT 329 10^3/uL (150-400); RED BLOOD CELL COUNT 4.82 10^6/uL (4.40-6.38); RED CELL DISTRIBUTION WIDTH 13.5 % (11.5-15.2)
[2017-02-02] MEDS: LORazepam 1 MG TAB PO PRN ×4 (05:35→21:32)
[2017-02-02 06:40] LABS: PLATELET ESTIMATE ADEQUATE (ADEQ)
[2017-02-02] MEDS: predniSONE 20 MG TAB PO SCH (09:05)
[2017-02-02] MEDS: AZITHROMYCIN 250 MG TAB PO SCH (09:05)
[2017-02-02] MEDS: ENOXAPARIN 40 MG/0.4 ML SYR SC SCH (09:06)
[2017-02-02] MEDS: NICOTINE 21 MG/24 HR PATCH TD SCH (09:06)
[2017-02-02] MEDS: CHLORTHALIDONE 25 MG TAB PO SCH ×2 (09:06→21:33)
[2017-02-02] MEDS: SERTRALINE HCL 100 MG TAB PO SCH (09:07)
[2017-02-02] MEDS: amLODIPine BESYLATE 5 MG TAB PO SCH (09:08)
[2017-02-02] MEDS ORDERED: FUROSEMIDE 20 MG/2 ML VIAL IVP ONE (09:19)
--- NOTE | 2017-02-02 11:31 | HOSPPROG ---
Hospitalist Progress Note Assessment/Plan: 61-year-old male presents with acute worsening of COPD exacerbation * Acute hypoxemic respiratory failure discharged from [facility] on 01/29/2017 with persistent wheezing and shortness of breath * chest CT was reviewed showing bilateral diffuse ground-glass opacities * cultures negative so far. Will discontinue vancomycin * got a lot better from yesterday to today with Lasix - wonder if ground- glass opacities may have been pulmonary edema * will give another dose of Lasix today * continue Zosyn and azithromycin * COPD exacerbation * continue prednisone and nebulizer * bilateral diffuse ground-glass infiltrate seen on chest CT * ? fluid overload * Schizoaffective disorder. Chronic, currently stable, the patient was recently placed on M1 hold for suicidal ideation prior to his most recent hospitalization, the patient is currently denying any suicidal ideation - he has outpatient follow-up at [facility] * Hypertension. Chronic, continue home medications Subjective: feeling a lot better today. Wants to go home minimal cough Objective: Vital Signs Temp Pulse Resp BP Pulse Ox 36.4 C 102 H 20 127/97 H 90 L 02/02/17 08:08 02/02/17 08:08 02/02/17 08:08 02/02/17 09:08 02/02/17 08:08 Laboratory Results 02/02/17 04:50 02/02/17 04:50 02/01/17 02/02/17 02/03/17 05:59 05:59 05:59 Intake Total 3597 3205 Output Total 1900 5475 300 Balance 3043 -8427 -300 - Physical Exam Constitutional: no apparent distress, appears nourished, not in pain Eyes: anicteric sclera, EOMI Ears, Nose, Mouth, Throat: moist mucous membranes, hearing normal Cardiovascular: regular rate and rhythym, no murmur, rub, or gallop Respiratory: no respiratory distress, no rales or rhonchi ( much improved breath sounds from yesterday) Gastrointestinal: normoactive bowel sounds, soft, non-tender abdomen, no palpable masses Skin: warm Neurologic: AAOx3 Psychiatric: interacting appropriately, not anxious, not encephalopathic, thought process linear ICD10 Worksheet Patient Problems: Problems Problem Status Onset Chronic obstructive pulmonary disease with acute exacerbation Acute Hypoxia Acute Leukocytosis Acute Pneumonia Acute RANDAL (acute kidney injury) Acute Alcohol dependence with physiological dependence, episodic Acute Alcohol intoxication Acute Alcoholism Acute Anxiety Acute COPD exacerbation Acute Elevated bilirubin Acute Hand edema Acute Hypokalemia Acute Hyponatremia Acute Lactic acidosis Acute Leg edema Acute Leukocytosis Acute Nausea vomiting and diarrhea Acute Pneumonia Acute Schizoaffective disorder, bipolar type Acute Suicidal ideation Acute
[2017-02-02] MEDS ORDERED: FUROSEMIDE 20 MG/2 ML VIAL ONE (12:27)
--- NOTE | 2017-02-02 19:45 | SOAPPROG ---
SOAP Progress Note Assessment/Plan: Assessment: Bilateral pneumonia, with patchy ground-glass opacities. Consistent with under treated/partially treated infection from last admission. Clinically improved compared with admission but still with significant congestion and wheezing. Current antibiotics are appropriate.. Chronic obstructive pulmonary disease, with significant exacerbation. Improved , but significant wheezing and congestion persists. However, he is not tight and does not notice his wheezing. On bronchodilator therapies and steroids. History of tobacco abuse, alcohol abuse. Schizoaffective disorder. Plan: Continue present antibiotics, steroids and bronchodilator therapies. Will follow. I anticipate he will need hospitalization through the weekend now secondary to the severity of his underlying disease and this exacerbation/ infection. Will repeat chest x-ray tomorrow. Subjective: Says he feels better, denies significant wheezing and shortness of breath. Remains on oxygen at 3 L Objective: Vital Signs Temp Pulse Resp BP Pulse Ox 36.4 C 119 H 20 127/97 H 91 L 02/02/17 08:08 02/02/17 16:11 02/02/17 16:11 02/02/17 09:08 02/02/17 16:11 Laboratory Results 02/02/17 04:50 02/02/17 04:50 02/01/17 02/02/17 02/03/17 05:59 05:59 05:59 Intake Total 3597 3205 1395 Output Total 1900 5475 700 Balance 1697 -9710 695 Physical Exam - Physical Exam General Appearance: obese, other (Sleeping, arousable, responsive) EENT: other (Nasal cannula in place at 3 L) Neck: normal inspection (No obvious JVD, but large neck) Respiratory: decreased breath sounds, rales (Few rales present at the bases), rhonchi (Central rhonchi present with cough), wheezing (Moderate wheezing persists bilaterally) Cardiac/Chest: tachycardia (Regular, distant heart tones) Abdomen: normal bowel sounds, non-tender (bee), soft Skin: normal color, warm/dry Extremities: pedal edema Neuro/Psych: no motor/sensory deficits, No cognition abnormalities ICD10 Worksheet Patient Problems: Problems Problem Status Onset Schizoaffective disorder, bipolar type Acute Alcohol dependence with physiological dependence, episodic Acute COPD exacerbation Acute Anxiety Acute RANDAL (acute kidney injury) Acute Nausea vomiting and diarrhea Acute Alcoholism Acute Hyponatremia Acute Leukocytosis Acute Elevated bilirubin Acute Hypokalemia Acute Lactic acidosis Acute Alcohol intoxication Acute Leg edema Acute Hand edema Acute Suicidal ideation Acute Pneumonia Acute Chronic obstructive pulmonary disease with acute exacerbation Acute Pneumonia Acute Hypoxia Acute Leukocytosis Acute
[2017-02-02] MEDS: IPRATROPIUM/ALBUTEROL 3 ML DEYVIAL IH PRN (19:58)
[2017-02-03] MEDS: LORazepam 1 MG TAB PO PRN ×5 (02:19→21:34)
[2017-02-03] MEDS: PIPERACILLIN/TAZO 4.5 GM/DEX 100 ML IV SCH ×4 (04:35→21:34)
[2017-02-03 04:54] LABS: ANION GAP 9 mEq/L (8-16); CALCIUM 9.2 mg/dL (8.5-10.4); CARBON DIOXIDE 35 mEq/l (22-31); CHLORIDE 95 mEq/L (97-110); CREATININE 0.8 mg/dL (0.7-1.3); GLOMERULAR FILTRATION RATE > 60; GLUCOSE 207 mg/dL (70-100); POTASSIUM 3.7 mEq/L (3.5-5.2); SODIUM 139 mEq/L (134-144)
[2017-02-03] MEDS: amLODIPine BESYLATE 5 MG TAB PO SCH (07:59)
[2017-02-03] MEDS: ENOXAPARIN 40 MG/0.4 ML SYR SC SCH (07:59)
[2017-02-03] MEDS: AZITHROMYCIN 250 MG TAB PO SCH (08:01)
[2017-02-03] MEDS: CHLORTHALIDONE 25 MG TAB PO SCH ×2 (08:01→21:34)
[2017-02-03 08:02] LABS: ADD DIFF? YES; ADD MORPH? NO; ADD SCAN? NO; ATYPICAL LYMPHOCYTE FLAG 10 (0-99); FRAGMENT RBC FLAG 0 (0-99); HEMATOCRIT 45.6 % (40.0-51.0); HEMOGLOBIN 15.5 g/dL (13.7-17.5); LEFT SHIFT FLG 20 (0-99); LIPEMIA HEMOLYSIS FLAG 90 (0-99); MEAN CELL VOLUME 91.2 fL (81.5-99.8); MEAN PLATELET VOLUME 10.2 fL (8.7-11.7); PLATELET CLUMPS FLAG 0 (0-99); PLATELET COUNT 330 10^3/uL (150-400); RED CELL DISTRIBUTION WIDTH 13.5 % (11.5-15.2)
[2017-02-03] MEDS: NICOTINE 21 MG/24 HR PATCH TD SCH (08:02)
[2017-02-03] MEDS: SERTRALINE HCL 100 MG TAB PO SCH (08:02)
[2017-02-03] MEDS: predniSONE 20 MG TAB PO SCH (08:15)
[2017-02-03 08:40] LABS: PLATELET ESTIMATE ADEQUATE (ADEQ)
--- NOTE | 2017-02-03 11:05 | HOSPPROG ---
Hospitalist Progress Note Assessment/Plan: 61-year-old male presents with acute worsening of COPD exacerbation * Acute hypoxemic respiratory failure [facility] with persistent wheezing and shortness of breath * chest CT was reviewed showing bilateral diffuse ground-glass opacities * cultures negative so far. Will discontinue vancomycin * Continue current treatment * Oxygen requirement better * COPD exacerbation * continue prednisone and nebulizer * bilateral diffuse ground-glass infiltrate seen on chest CT * ? fluid overload - status post to doses of Lasix. * Schizoaffective disorder. Chronic, currently stable, the patient was recently placed on M1 hold for suicidal ideation prior to his most recent hospitalization, the patient is currently denying any suicidal ideation - he has outpatient follow-up at [facility] * Hypertension. Chronic, continue home medications Subjective: Was doing well yesterday morning but then in the afternoon had significant wheezing and shortness of breath Objective: Vital Signs Temp Pulse Resp BP Pulse Ox 36.4 C 96 18 130/102 H 91 L 02/03/17 07:31 02/03/17 07:31 02/03/17 07:31 02/03/17 08:01 02/03/17 07:31 Laboratory Results 02/03/17 07:40 02/03/17 04:30 02/02/17 02/03/17 02/04/17 05:59 05:59 05:59 Intake Total 3205 2075 Output Total 5475 1975 Balance -2270 100 - Physical Exam Constitutional: no apparent distress, appears nourished, not in pain Eyes: anicteric sclera, EOMI Ears, Nose, Mouth, Throat: moist mucous membranes, hearing normal Cardiovascular: regular rate and rhythym, no murmur, rub, or gallop Respiratory: no respiratory distress, other (Slight expiratory wheezes fine) Gastrointestinal: normoactive bowel sounds, soft, non-tender abdomen, no palpable masses Skin: warm Neurologic: AAOx3 Psychiatric: interacting appropriately, not anxious, not encephalopathic, thought process linear ICD10 Worksheet Patient Problems: Problems Problem Status Onset Chronic obstructive pulmonary disease with acute exacerbation Acute Hypoxia Acute Leukocytosis Acute Pneumonia Acute RANDAL (acute kidney injury) Acute Alcohol dependence with physiological dependence, episodic Acute Alcohol intoxication Acute Alcoholism Acute Anxiety Acute COPD exacerbation Acute Elevated bilirubin Acute Hand edema Acute Hypokalemia Acute Hyponatremia Acute Lactic acidosis Acute Leg edema Acute Leukocytosis Acute Nausea vomiting and diarrhea Acute Pneumonia Acute Schizoaffective disorder, bipolar type Acute Suicidal ideation Acute
[2017-02-03] MEDS: ACETAMINOPHEN 325 MG TAB PO PRN (12:38)
--- NOTE | 2017-02-03 18:47 | SOAPPROG ---
SOAP Progress Note Assessment/Plan: Assessment: Bilateral pneumonia, with patchy ground-glass opacities. Consistent with under treated/partially treated infection from last admission. Examination comma chest x-ray and subjective symptoms are all improving. Current antibiotics are appropriate.. Chronic obstructive pulmonary disease, with significant exacerbation. Improved. On bronchodilator therapies and steroids. History of tobacco abuse, alcohol abuse. Schizoaffective disorder. Plan: Continue present antibiotics, steroids and bronchodilator therapies. Will follow. I anticipate he will need hospitalization through the weekend secondary to the severity of his underlying disease and this exacerbation/ infection, but will reassess on a daily basis. Perhaps could go home sooner. He will need outpatient pulmonary follow-up at some point. Subjective: Still wheezing, notices this today, but says he feels better, is breathing more easily. Objective: Vital Signs Temp Pulse Resp BP Pulse Ox 36.6 C 99 20 125/95 H 93 02/03/17 16:06 02/03/17 16:06 02/03/17 16:06 02/03/17 16:06 02/03/17 16:06 Laboratory Results 02/03/17 07:40 02/03/17 04:30 02/02/17 02/03/17 02/04/17 05:59 05:59 05:59 Intake Total 3205 2075 2200 Output Total 5475 1975 Balance -2270 100 2200 CXR: Improving bilateral infiltrates. Physical Exam - Physical Exam General Appearance: obese, other (Sleeping, arouses, answers questions.) EENT: other (Nasal cannula 2 L) Neck: normal inspection (No obvious JVD, but a large neck) Respiratory: decreased breath sounds, rales, wheezing (Expiratory wheezing persists, improved), prolonged expiration Cardiac/Chest: regular rate, rhythm (Distant heart tones) Abdomen: normal bowel sounds, non-tender, soft (Obese) Skin: normal color, warm/dry Extremities: pedal edema Neuro/Psych: No no motor/sensory deficits (Nonfocal), No cognition abnormalities (At baseline) ICD10 Worksheet Patient Problems: Problems Problem Status Onset Schizoaffective disorder, bipolar type Acute Alcohol dependence with physiological dependence, episodic Acute COPD exacerbation Acute Anxiety Acute RANDAL (acute kidney injury) Acute Nausea vomiting and diarrhea Acute Alcoholism Acute Hyponatremia Acute Leukocytosis Acute Elevated bilirubin Acute Hypokalemia Acute Lactic acidosis Acute Alcohol intoxication Acute Leg edema Acute Hand edema Acute Suicidal ideation Acute Pneumonia Acute Chronic obstructive pulmonary disease with acute exacerbation Acute Pneumonia Acute Hypoxia Acute Leukocytosis Acute
[2017-02-04] MEDS: LORazepam 1 MG TAB PO PRN ×4 (02:38→21:36)
[2017-02-04] MEDS: PIPERACILLIN/TAZO 4.5 GM/DEX 100 ML IV SCH ×4 (05:22→21:36)
[2017-02-04] MEDS: SERTRALINE HCL 100 MG TAB PO SCH (09:10)
[2017-02-04] MEDS: amLODIPine BESYLATE 5 MG TAB PO SCH (09:10)
[2017-02-04] MEDS: AZITHROMYCIN 250 MG TAB PO SCH (09:10)
[2017-02-04] MEDS: CHLORTHALIDONE 25 MG TAB PO SCH ×2 (09:10→21:36)
[2017-02-04] MEDS: predniSONE 20 MG TAB PO SCH (09:10)
[2017-02-04] MEDS: NICOTINE 21 MG/24 HR PATCH TD SCH (09:11)
[2017-02-04] MEDS: ENOXAPARIN 40 MG/0.4 ML SYR SC SCH (09:11)
[2017-02-04] MEDS ORDERED: FUROSEMIDE 40 MG/4 ML VIAL IVP ONE (10:19)
--- NOTE | 2017-02-04 15:12 | HOSPPROG ---
Hospitalist Progress Note Assessment/Plan: 61-year-old male presents with acute worsening of COPD exacerbation * Acute hypoxemic respiratory failure discharged from [facility] on 01/29/2017 with persistent wheezing and shortness of breath * chest CT was reviewed showing bilateral diffuse ground-glass opacities * cultures negative so far. Will discontinue vancomycin * Continue current treatment * Oxygen requirement better * COPD exacerbation * continue prednisone and nebulizer * bilateral diffuse ground-glass infiltrate seen on chest CT * ? fluid overload - status post to doses of Lasix. * Schizoaffective disorder. Chronic, currently stable, the patient was recently placed on M1 hold for suicidal ideation prior to his most recent hospitalization, the patient is currently denying any suicidal ideation - he has outpatient follow-up at [facility] * Hypertension. Chronic, continue home medications Subjective: Seems to be feeling better. Less wheezing Objective: Vital Signs Temp Pulse Resp BP Pulse Ox 36.6 C 103 H 20 146/99 H 91 L 02/04/17 08:33 02/04/17 08:33 02/04/17 08:33 02/04/17 08:33 02/04/17 08:33 Laboratory Results 02/03/17 07:40 02/03/17 04:30 02/03/17 02/04/17 02/05/17 05:59 05:59 05:59 Intake Total 5 3030 Output Total 1975 600 Balance 100 2430 - Physical Exam Constitutional: no apparent distress, appears nourished, not in pain Eyes: anicteric sclera, EOMI Ears, Nose, Mouth, Throat: moist mucous membranes Cardiovascular: regular rate and rhythym, no murmur, rub, or gallop Respiratory: no respiratory distress, no rales or rhonchi, clear to auscultation , No expiratory wheeze Gastrointestinal: normoactive bowel sounds, soft, non-tender abdomen, no palpable masses Skin: warm Neurologic: AAOx3 Psychiatric: interacting appropriately, not anxious, not encephalopathic, thought process linear ICD10 Worksheet Patient Problems: Problems Problem Status Onset Chronic obstructive pulmonary disease with acute exacerbation Acute Hypoxia Acute Leukocytosis Acute Pneumonia Acute RANDAL (acute kidney injury) Acute Alcohol dependence with physiological dependence, episodic Acute Alcohol intoxication Acute Alcoholism Acute Anxiety Acute COPD exacerbation Acute Elevated bilirubin Acute Hand edema Acute Hypokalemia Acute Hyponatremia Acute Lactic acidosis Acute Leg edema Acute Leukocytosis Acute Nausea vomiting and diarrhea Acute Pneumonia Acute Schizoaffective disorder, bipolar type Acute Suicidal ideation Acute
--- NOTE | 2017-02-04 16:45 | SOAPPROG ---
SOAP Progress Note Assessment/Plan: Assessment: Bilateral pneumonia, with patchy ground-glass opacities. Consistent with under treated/partially treated infection from last admission. Examination, chest x- ray and subjective symptoms are all improving. Current antibiotics are appropriate. Chronic obstructive pulmonary disease, with significant exacerbation. Improved. On bronchodilator therapies and steroids. Wheezing is improving as is oxygenation History of tobacco abuse, alcohol abuse. Schizoaffective disorder. Plan: Continue present antibiotics, steroids and bronchodilator therapies. Will follow. I anticipate he will need hospitalization for another 1-2 days. He will need outpatient pulmonary follow-up which will be arranged for to 3 weeks following his discharge. Oxygen will be needed at discharge. Subjective: Feels better, less short of breath, less wheezing Objective: Vital Signs Temp Pulse Resp BP Pulse Ox 36.6 C 110 H 20 118/90 H 90 L 02/04/17 16:13 02/04/17 16:13 02/04/17 16:13 02/04/17 16:13 02/04/17 16:13 Laboratory Results 02/03/17 07:40 02/03/17 04:30 02/03/17 02/04/17 02/05/17 05:59 05:59 05:59 Intake Total 2075 3030 2500 Output Total 1975 600 5 Balance 100 2430 2495 Physical Exam - Physical Exam General Appearance: obese, other (In bed, awake, responsive) EENT: PERRL/EOMI, other (Oxygen is currently off and look 2nd has been for a bit with saturations of 90%) Neck: normal inspection (Large neck) Respiratory: decreased breath sounds, rales (Few distant rales), wheezing ( Significantly improved, some expiratory wheezes persists), prolonged expiration , No rhonchi Cardiac/Chest: tachycardia (Regular) Abdomen: normal bowel sounds, non-tender, soft (Obese) Skin: normal color, warm/dry Extremities: pedal edema Neuro/Psych: no motor/sensory deficits, No cognition abnormalities (At baseline , schizoaffective disorder) ICD10 Worksheet Patient Problems: Problems Problem Status Onset Schizoaffective disorder, bipolar type Acute Alcohol dependence with physiological dependence, episodic Acute COPD exacerbation Acute Anxiety Acute RANDAL (acute kidney injury) Acute Nausea vomiting and diarrhea Acute Alcoholism Acute Hyponatremia Acute Leukocytosis Acute Elevated bilirubin Acute Hypokalemia Acute Lactic acidosis Acute Alcohol intoxication Acute Leg edema Acute Hand edema Acute Suicidal ideation Acute Pneumonia Acute Chronic obstructive pulmonary disease with acute exacerbation Acute Pneumonia Acute Hypoxia Acute Leukocytosis Acute
[2017-02-05] MEDS: LORazepam 1 MG TAB PO PRN ×3 (00:25→13:20)
[2017-02-05] MEDS: ACETAMINOPHEN 325 MG TAB PO PRN (00:25)
[2017-02-05] MEDS: PIPERACILLIN/TAZO 4.5 GM/DEX 100 ML IV SCH ×2 (05:20→09:01)
[2017-02-05] MEDS: amLODIPine BESYLATE 5 MG TAB PO SCH (08:55)
[2017-02-05] MEDS: CHLORTHALIDONE 25 MG TAB PO SCH (08:55)
[2017-02-05] MEDS: NICOTINE 21 MG/24 HR PATCH TD SCH (08:55)
[2017-02-05] MEDS: SERTRALINE HCL 100 MG TAB PO SCH (08:55)
[2017-02-05] MEDS: AZITHROMYCIN 250 MG TAB PO SCH (08:55)
[2017-02-05] MEDS: predniSONE 20 MG TAB PO SCH (08:55)
[2017-02-05] MEDS: ENOXAPARIN 40 MG/0.4 ML SYR SC SCH (08:55)
[2017-02-05 11:00] VITALS: BP 110/86; TEMP 97.2
--- NOTE | 2017-02-05 12:01 | ECHO ---
[id number] + + [address] : : [place] [address] : : [phone] + + Adult Echocardiographic Report + + :Name: DIEUDONNE HERBERT Study Date: 02/05/2017 10:09 AM : : Hospital Admission Number: [id number] : :: 1955 Gender: Male Height: 69 in : :Age: 61 yrs Race: WH Weight: 190 lb : :Reason For Study: Eval for CHF : : BSA: 2.0 meters2: :History: No previous : + + MMode/2D Measurements \T\ Calculations IVSd: 1.6 cm RVDd: 3.6 cm FS: 32.0 % LVOT diam: 2.1 cm LVPWd: 1.1 cm LVIDd: 3.4 cm EDV(Teich): 46.4 ml LVOT area: 3.5 cm2 LVIDs: 2.3 cm ESV(Teich): 17.9 ml EF(Teich): 61.4 % Normal Measurement Values: + + :LVIDd (3.5-5.7cm) IVSd (0.6-1.1cm) LVPWd (0.6-1.1cm) Aortic Root (2.0-3.7cm)Left Atrium (1.5-4.0cm): :LV Vol(d) (76-115ml) LV Vol(s) (29-48ml) Ejec Fraction (50-65%)PV Reyes (0.6- 1.2m/s) TV Reyes (0.4-1.0m/s) : :MV E Reyes (0.8-1.0m/s)MV A Reyes (0.3-1.0m/s)LVOT Reyes (0.7-1.2m/s) Asc Ao Reyes ( 0.9-1.8m/s) : + + Doppler Measurements \T\ Calculations MV E max reyes: MV V2 max: Ao V2 max: LV V1 max: 43.8 cm/sec 72.5 cm/sec 84.4 cm/sec 71.4 cm/sec MV A max reyes: MV max PG: Ao max PG: LV V1 max P.1 cm/sec 2.1 mmHg 2.8 mmHg 2.0 mmHg MV E/A: 0.63 MV V2 mean: Ao mean PG: LV V1 mean PG: MV dec time: 45.0 cm/sec 1.0 mmHg 1.0 mmHg 0.27 sec MV mean PG: Ao V2 mean: LV V1 mean: 1.0 mmHg 53.9 cm/sec 44.5 cm/sec MV V2 VTI: 14.0 cm Ao V2 VTI: 13.0 cmLV V1 VTI: 12.4 cm MVA(VTI): 3.1 cm2 DAGOBERTO(I,D): 3.3 cm2 DAGOBERTO(V,D): 2.9 cm2 SV(LVOT): 42.9 ml PA V2 max: 68.3 cm/sec PA max P.9 mmHg Left Ventricle The left ventricle is normal in size. There is moderate asymmetric left ventricular hypertrophy. Ejection Fraction = 60-65%. There is Doppler evidence for diastolic dysfunction. Grade I diastolic dysfunction. The left ventricular wall motion is normal. Right Ventricle The right ventricle is mildly dilated. The right ventricular systolic function is mildly reduced. Atria The left atrial size is normal. Right atrial size is normal. The interatrial septum is intact with no evidence for an atrial septal defect. Mitral Valve The mitral valve is normal in structure and function. There is no mitral valve stenosis. There is no mitral regurgitation noted. Tricuspid Valve The tricuspid valve is normal in structure and function. There is no tricuspid stenosis. There is trace tricuspid regurgitation. Aortic Valve The aortic valve is not well visualized. There is no aortic stenosis. There is no aortic insufficiency. Pulmonic Valve The pulmonic valve is not well visualized. There is no pulmonic valvular stenosis. There is no pulmonic valvular regurgitation. Great Vessels The aortic root is normal size. Mildly dilated ascending aorta. Ascending aorta is 4 cm. Pericardium/Pleural There is a fat pad seen. Conclusion A complete two-dimensional transthoracic echocardiogram was performed (2D, M-mode, Doppler and color flow Doppler). The study was technically difficult. Limited windows due to lung artifact and body habitus. There is moderate asymmetric left ventricular hypertrophy. Ejection Fraction = 60-65%. There is Doppler evidence for diastolic dysfunction, Grade I The left ventricular wall motion is normal. The right ventricle is mildly dilated. The right ventricular systolic function is mildly reduced. There is trace tricuspid regurgitation. The aortic valve is not well visualized. No or AR Mildly dilated ascending aorta. Ascending aorta is 4 cm No prior echo Final Reading Physician: Dr Alice Meyers electronically signed on 02/05/2017 12:00 PM Ordering Physician: Balbina Haas Performed By: Hannah Kapoor
[2017-02-05 13:53] VITALS: PULSE 110; RESP 20; O2SAT 94
--- NOTE | 2017-02-05 14:00 | GDS ---
[f rep st] DISCHARGE SUMMARY DISCHARGE DIAGNOSES: 1. Chronic obstructive pulmonary disease exacerbation. 2. Left upper lobe pneumonia. 3. Ground-glass opacities on CT chest, possibly fluid overload. 4. Schizoaffective disorder. 5. Acute diastolic dysfunction exacerbation. 6. History of hypertension. HISTORY: This is a 61-year-old male who was initially admitted in late December for suicidal ideation and COPD exacerbation. He returned the day after discharge with continued shortness of breath. HOSPITAL COURSE: The patient did have CT scan which did show worsening left upper lobe pneumonia as well as diffuse ground-glass opacities. Pulmonology consultation was obtained. They recommended a ntibiotics and steroids, which were done. His hypoxemia was improving slowly with antibiotics and s teroids, but did get significantly better with diuresis. Echocardiogram showed diastolic dysfunctio n. I wonder if that might be the cause of the ground-glass opacities. On day of discharge, he is o n room air with great lung sounds and no wheezes. He is wanting to go home. He will be discharged home with a prednisone taper and another week of Augmentin. DISPOSITION: Home with Home Health. DISCHARGE MEDICATIONS: He is to resume his home medicines. In addition, he will be given Augmentin 875 mg daily, prednisone taper and Flovent. FOLLOWUP INSTRUCTIONS: He is instructed to follow up with Pulmonology in 3 weeks. Greater than 30 minutes were spent on discharge. /[id number]
== END 2017-02-05 14:40 | disposition home health service (06) | DRG 193 ==
LOC: EDUNIT# → EEVIPCON 02:02 → F1N 06:25 → OBSVTOIN 01-31 15:39
PROVIDERS: ADMIT Internal Medicine; ATTEND Internal Medicine
DX: J18.9 Pneumonia, unspecified organism (principal); J44.1 Chronic obstructive pulmonary disease with (acute) exacerbation; J96.01 Acute respiratory failure with hypoxia; I50.31 Acute diastolic (congestive) heart failure; F25.9 Schizoaffective disorder, unspecified; F17.210 Nicotine dependence, cigarettes, uncomplicated; I10 Essential (primary) hypertension; Z86.19 Personal history of other infectious and parasitic diseases
CPT/HCPCS: 87449-90; 92610-GN; 96365; 97166-GO; C1751; G0378; G0480; J0456; J0692; J1650; J2543; J2997; J3370

== ENCOUNTER 2017-02-12 09:07 | Inpatient (IN) | payer MEDICAID ==
[2017-02-12] MEDS ORDERED: NS 1,000 ML IV ONE (09:26)
--- NOTE | 2017-02-12 09:28 | EDPHY ---
H & P Stated Complaint: new onset diarrhea - Personal History Current Tetanus/Diphtheria Vaccine: Unsure Current Tetanus Diphtheria and Acellular Pertussis (TDAP): Unsure Tetanus Vaccine Date: < 10 YEARS - Medical/Surgical History Hx Asthma: Yes Hx Chronic Respiratory Disease: No Hx Diabetes: No Hx Cardiac Disease: Yes Hx Renal Disease: No Hx Cirrhosis: Yes Hx Alcoholism: Yes Hx HIV/AIDS: No Hx Splenectomy or Spleen Trauma: No Other PMH: MEDICAL- ANXIETY, LIVER DISEASE, ASCITES, IVDA, HEP C+, alcohol and drug abuse/MENTAL HEALTH, htn,cirrohsis, hx of 3 ruptured discs/back surgs/ tonsillectomy - Social History Smoking Status: Heavy smoker Time Seen by Provider: 02/12/17 09:20 HPI/ROS: CHIEF COMPLAINT: Diarrhea, bilateral ankle and knee pain HISTORY OF PRESENT ILLNESS: 61-year-old male with multiple comorbidities arrives via ambulance complaining of diarrhea for the past 5 days, defecating every 12 minutes. Also complaining of bilateral ankle and knee pain since being discharged from the hospital 7 days ago. No fever no chills. No abdominal pain. No knee or ankle trauma. No rash. No urinary abnormality. REVIEW OF SYSTEMS: A ten point review of systems was performed and is negative with the exception of the items mentioned in the HPI PAST MEDICAL & SURGICAL HISTORY: COPD. Schizoaffective disorder. Hypertension. SOCIAL HISTORY: denies acute alcohol or drug use PHYSICAL EXAM (Prior to examination, patient consented to physical exam, hands were washed and my usual and customary physical exam procedures followed) 1) GENERAL: Well-developed, well-nourished, alert and oriented. Appears uncomfortable . 2) HEAD: Normocephalic, atraumatic 3) HEENT: Pupils equal, round, reactive to light bilaterally. Sclera anicteric. Nasopharynx, oropharynx, clear, no lesions. Ears bilaterally with normal tympanic membranes. 4) NECK: Full range of motion, no meningeal signs. 5) LUNGS: Clear auscultation bilaterally, no wheezes, no rhonchi, no retractions. 6) HEART: Regular rate and rhythm, no murmur, no heave, no gallop. 7) ABDOMEN: Distended abdomen, no guarding no rebound, no focal tenderness, negative McBurney's, negative Kendrick's, negative Rovsing's, negative peritoneal sign, 8) MUSCULOSKELETAL: bilateral knees and ankles are examined, normal color, normal temperature, no pain with palpation. No effusion. Distal DP PT pulses present and brisk. Brisk capillary refill brisk pulses normal color normal temperature distally. Moving all extremities, no focal areas of tenderness, no obvious trauma. No peripheral edema or discoloration. 9) BACK: No CVA tenderness, no midline vertebral tenderness, no fluctuance, no step-off, no obvious trauma, no visual or palpable abnormality. 10) SKIN: No rash, no petechiae. 11) Psychiatric: Patient is oriented X 3, there is no agitation. DIFFERENTIAL DIAGNOSIS: in no particular include but not limited to infectious diarrhea, C diff colitis, septic arthritis, inflammatory arthritis (Anna,Micah Denise) Constitutional: Initial Vital Signs Temperature (C) 37 C 02/12/17 09:14 Heart Rate 114 H 02/12/17 09:14 Respiratory Rate 20 02/12/17 09:14 Blood Pressure 127/82 H 02/12/17 09:14 O2 Sat (%) 94 02/12/17 09:14 O2 Delivery Mode Room Air Allergies/Adverse Reactions: lisinopril Allergy (Verified 01/24/17 20:46) Home Medications: Medication Instructions Recorded Ibuprofen [Motrin (*)] 600 mg PO DAILY PRN 06/29/16 Sertraline HCl [Zoloft 100mg (*)] 100 mg PO DAILY 06/29/16 Albuterol [Proventil Inhaler HFA 1 - 2 puffs IH Q4H PRN 01/25/17 (*)] Amlodipine Besylate [Norvasc] 10 mg PO DAILY 01/25/17 Chlorthalidone [Chlorthalidone 25 25 mg PO BID 01/25/17 mg (*)] Amoxicillin/Clavulanate Pot 875 mg PO BID #14 tab 02/05/17 [Augmentin 875 MG TAB (*)] Fluticasone Hfa 220 Mcg [Flovent 1 puffs IH BID #1 mdi 02/05/17 220 MCG Hfa MDI (*)] predniSONE 40 mg PO DAILY #10 tablet 02/05/17 Medical Decision Making - Diagnostics Imaging Results: Imaging Impressions Ankle X-Ray 02/12/17 09:30 Impression: There is no acute osseous abnormality. LEFT ANKLE (3 Views, at 10:05 AM): Bone mineralization is preserved. There is no fracture, dislocation, or mortise disruption. There is a tiny osteophyte off the distal anterior tibia, and posterior calcaneal enthesophytes are present. There is no ankle joint effusion. Impression: There is no acute osseous abnormality. Ankle X-Ray 02/12/17 09:30 Impression: There is no acute osseous abnormality. LEFT ANKLE (3 Views, at 10:05 AM): Bone mineralization is preserved. There is no fracture, dislocation, or mortise disruption. There is a tiny osteophyte off the distal anterior tibia, and posterior calcaneal enthesophytes are present. There is no ankle joint effusion. Impression: There is no acute osseous abnormality. Knee X-Ray 02/12/17 09:30 Impression: Chondrocalcinosis, with no acute osseous abnormality. Wrist X-Ray 02/12/17 09:30 Impression: Soft tissue swelling, with no acute osseous abnormality. Images reviewed by myself (Micah Castillo) ED Course/Re-evaluation: The patient was evaluated and managed by the physician's assistant associate full professor. My cosignature indicates that I reviewed the chart and I agree with the findings and plan of care as documented. I am the secondary supervising physician. ( Claudia Melgar) Patient was re-evaluated with serial examinations the case discussed with secondary to superimposition Dr. Claudia Melgar. Patient describes defecating diarrhea approximately every 12 minutes. He has provide a stool sample in the emergency department which is currently pending the laboratory. Describes being unable to care for himself, describes defecating in his household, having to crawl around. The specific etiology of his bilateral knee and ankle pain is not completely clear at this time. I think this septic arthritis is less than likely at this time. Doubt DVT. Doubt vasculopathy. Doubt arterial occlusion. Recommended admission as he is unable to care for himself. Phone consultation with hospitalist, Micki, at 11:00 a.m., admit to Dr. Coffey (Micah Castillo) - Data Points Laboratory Results: Laboratory Results 02/12/17 09:30 02/12/17 09:30 02/12/17 02/12/1717 09:30 09:30 09:30 WBC 10.82 10^3/uL H 10^3/uL (3.80-9.50) RBC 4.66 10^6/uL 10^6/uL (4.40-6.38) Hgb 14.4 g/dL g/dL (13.7-17.5) Hct 42.7 % % 42.6 % % (40.0-51.0) (40.0-51.0) MCV 91.4 fL fL (81.5-99.8) MCH 30.9 pg pg (27.9-34.1) MCHC 33.8 g/dL g/dL (32.4-36.7) RDW 13.9 % % (11.5-15.2) Plt Count 445 10^3/uL H 10^3/uL (150-400) MPV 9.9 fL fL (8.7-11.7) Neut % (Auto) 61.3 % % (39.3-74.2) Lymph % (Auto) 24.6 % % (15.0-45.0) Wayne % (Auto) 11.7 % % (4.5-13.0) Eos % (Auto) 1.3 % % (0.6-7.6) Baso % (Auto) 0.4 % % (0.3-1.7) Nucleat RBC Rel Count 0.0 % % (0.0-0.2) Absolute Neuts (auto) 6.63 10^3/uL H 10^3/uL (1.70-6.50) Absolute Lymphs (auto) 2.66 10^3/uL 10^3/uL (1.00-3.00) Absolute Monos (auto) 1.27 10^3/uL H 10^3/uL (0.30-0.80) Absolute Eos (auto) 0.14 10^3/uL 10^3/uL (0.03-0.40) Absolute Basos (auto) 0.04 10^3/uL 10^3/uL (0.02-0.10) Absolute Nucleated RBC 0.00 10^3/uL 10^3/uL (0-0.01) Immature Gran % 0.7 % % (0.0-1.1) Immature Gran # 0.08 10^3/uL 10^3/uL (0.00-0.10) ESR 27 MM/HR H MM/HR (0-20) Sodium 143 mEq/L mEq/L (134-144) Potassium 4.9 mEq/L mEq/L (3.5-5.2) Chloride 106 mEq/L mEq/L (97-110) Carbon Dioxide 27 mEq/l mEq/l (22-31) Anion Gap 10 mEq/L mEq/L (8-16) BUN 8 mg/dL mg/dL (7-23) Creatinine 0.7 mg/dL mg/dL (0.7-1.3) Estimated GFR > 60 Glucose 80 mg/dL mg/dL (70-100) Calcium 9.6 mg/dL mg/dL (8.5-10.4) Total Bilirubin 0.4 mg/dL mg/dL (0.1-1.4) Conjugated Bilirubin 0.4 mg/dL mg/dL (0.0-0.5) Unconjugated Bilirubin 0.0 mg/dL mg/dL (0.0-1.1) AST 20 IU/L IU/L (17-59) ALT 38 IU/L IU/L (21-72) Alkaline Phosphatase 69 IU/L IU/L (38-126) C-Reactive Protein 20.5 mg/L H mg/L (<10.0) Total Protein 6.3 g/dL g/dL (6.3-8.2) Albumin 3.6 g/dL g/dL (3.5-5.0) Lipase 189.0 IU/L IU/L (23-300) Medications Given: Discontinued Medications Hydromorphone HCl (Dilaudid) 1 mg IVP EDNOW ONE Stop: 02/12/17 10:21 Last Admin: 02/12/17 10:39 Dose: 1 mg Sodium Chloride (Ns) 1,000 mls @ 0 mls/hr IV ONCE ONE PRN Reason: Wide Open Stop: 02/12/17 09:27 Last Admin: 02/12/17 10:19 Dose: 1,000 mls Departure - Departure Disposition: [facility] Acute Clinical Impression: Unable to care for self Diarrhea Qualifiers: Diarrhea type: infectious Qualified Code(s): A09 - Infectious gastroenteritis and colitis, unspecified Bilateral knee pain Qualifiers: Chronicity: acute Qualified Code(s): M25.561 - Pain in right knee Bilateral ankle pain Qualifiers: Chronicity: acute Qualified Code(s): M25.571 - Pain in right ankle and joints of right foot Condition: Fair
[2017-02-12 09:42] LABS: % IMMATURE GRANULYOCYTES 0.7 % (0.0-1.1); ABSOLUTE IMMATURE GRANULOCYTES 0.08 10^3/uL (0.00-0.10); ADD DIFF? NO; ADD MORPH? NO; ADD SCAN? NO; ATYPICAL LYMPHOCYTE FLAG 0 (0-99); FRAGMENT RBC FLAG 0 (0-99); HEMATOCRIT 42.6 % (40.0-51.0); HEMOGLOBIN 14.4 g/dL (13.7-17.5); LEFT SHIFT FLG 0 (0-99); LIPEMIA HEMOLYSIS FLAG 90 (0-99); MEAN CELL HEMOGLOBIN 30.9 pg (27.9-34.1); MEAN CELL HEMOGLOBIN CONCENTR. 33.8 g/dL (32.4-36.7); MEAN CELL VOLUME 91.4 fL (81.5-99.8); MEAN PLATELET VOLUME 9.9 fL (8.7-11.7); PLATELET CLUMPS FLAG 10 (0-99); PLATELET COUNT 445 10^3/uL (150-400); RED BLOOD CELL COUNT 4.66 10^6/uL (4.40-6.38); RED CELL DISTRIBUTION WIDTH 13.9 % (11.5-15.2)
[2017-02-12 10:08] LABS: HEMATOCRIT 42.7 % (40.0-51.0)
[2017-02-12 10:17] LABS: ALANINE AMINOTRANSFERASE 38 IU/L (21-72); ALBUMIN 3.6 g/dL (3.5-5.0); ALKALINE PHOSPHATASE 69 IU/L (38-126); ANION GAP 10 mEq/L (8-16); ASPARTATE AMINOTRANSFERASE 20 IU/L (17-59); BILIRUBIN,TOTAL 0.4 mg/dL (0.1-1.4); BILIRUBIN-CONJUGATED 0.4 mg/dL (0.0-0.5); C-REACTIVE PROTEIN 20.5 mg/L (<10.0); CALCIUM 9.6 mg/dL (8.5-10.4); CARBON DIOXIDE 27 mEq/l (22-31); CHLORIDE 106 mEq/L (97-110); CREATININE 0.7 mg/dL (0.7-1.3); GLOMERULAR FILTRATION RATE > 60; GLUCOSE 80 mg/dL (70-100); POTASSIUM 4.9 mEq/L (3.5-5.2); SODIUM 143 mEq/L (134-144); TOTAL PROTEIN 6.3 g/dL (6.3-8.2)
[2017-02-12] MEDS ORDERED: HYDROmorphONE/DILAUDID 1 MG/ML SYR IVP ONE (10:20)
[2017-02-12] MEDS ORDERED: ONDANSETRON 4 MG/2 ML VIAL ONE (10:30)
[2017-02-12] MEDS ORDERED: NICOTINE 21 MG/24 HR PATCH TD ONE (11:47)
[2017-02-12] MEDS ORDERED: TAMSULOSIN HCL 0.4 MG CAP PO PRN (12:46)
[2017-02-12] MEDS ORDERED: ALBUTEROL 60 PUFFS/8 GM MDI IH PRN (12:46)
[2017-02-12] MEDS ORDERED: LOPERAMIDE HCL 2 MG CAP PO PRN (12:48)
--- NOTE | 2017-02-12 13:31 | PDGENHP ---
History and Physical - Chief Complaint diarrhea and joint pain - History of Present Illness 61 y/o male with history of schizoaffective disorder, copd, and substance abuse discharged on February 05 from [facility] after being treated for Pneumonia with a 5 day course of Levaquin. Since his discharge last Monday he developed severe pain in both knees ankles. The pain is severe to the point that he is unable to ambulate forcing him to crawl around his apartment. He denies any trauma. He denies any exacerbating or alleviating factors. On Monday he began having copious diarrhea. The stool is described as yellow in color without blood. He has been stooling uncontrollably every few minutes for days. He denies any abdominal pain or vomiting. He denies any fevers. He denies cough or shortness of breath. History Information - Allergies/Home Medication List Allergies/Adverse Reactions: lisinopril Allergy (Verified 01/24/17 20:46) Home Medications: Ibuprofen [Motrin (*)] 600 mg PO DAILY PRN 06/29/16 [Last Taken 06/28/16] Sertraline HCl [Zoloft 100mg (*)] 100 mg PO DAILY 06/29/16 [Last Taken 02/08/17] Albuterol [Proventil Inhaler HFA (*)] 1 - 2 puffs IH Q4H PRN 01/25/17 [Last Taken 01/29/17] Amlodipine Besylate [Norvasc] 10 mg PO DAILY 01/25/17 [Last Taken 02/08/17] Chlorthalidone [Chlorthalidone 25 mg (*)] 25 mg PO BID@07,19 01/25/17 [Last Taken 02/08/17] Tamsulosin HCl [Flomax 0.4 MG (*)] 0.4 mg PO DAILY PRN 02/12/17 [Last Taken Unknown] I have personally reviewed and updated: family history, medical history, social history, surgical history - Past Medical History COPD ( Recently experiencing acute COPD exacerbation), hypertension Additional medical history: recent hospitalization for pneumoinia DC 02/07/17. HTN. COPD. Schizoaffective disorder. Anxiety disorder. Hepatitis C, s/p Harvoni treatment. h/o chronic alcohol use. h/o IV drug abuse - Surgical History Additional surgical history: colonoscopy 2015 with polyps. laminectomy. t&A - Family History Additional family history: denies any recent sick family contacts, denies any recent contact with family. Colon cancer in father's side of the family - Social History Smoking Status: Heavy smoker Alcohol Use: Sober Additional social history: Pt lives alone, is independent in ADLs. Review of Systems ROS: 10pt was reviewed & negative except for what was stated in HPI & below Physical Exam Temp Pulse Resp BP Pulse Ox 37 C 114 H 20 127/82 H 94 02/12/17 09:14 02/12/17 09:14 02/12/17 09:14 02/12/17 09:14 02/12/17 09:14 Constitutional: no apparent distress, appears nourished, not in pain Eyes: PERRL, anicteric sclera, EOMI Ears, Nose, Mouth, Throat: moist mucous membranes, hearing normal, ears appear normal, no oral mucosal ulcers Cardiovascular: regular rate and rhythym, no murmur, rub, or gallop, No edema Respiratory: no respiratory distress, no rales or rhonchi, clear to auscultation , No rhonchi Gastrointestinal: normoactive bowel sounds, soft, non-tender abdomen, no palpable masses, distension, No guarding, No rebound Genitourinary: no bladder fullness, no bladder tenderness Skin: warm, normal color, no rashes or abrasions, no fluctuance, no induration, No mottled Musculoskeletal: pain with ROM (bilat knees and ankles), No joint effusion (in knees or ankles) Neurologic: AAOx3, CN II-XII Intact, No facial droop Psychiatric: interacting appropriately, not anxious, not encephalopathic, thought process linear Lymph, Heme, Immunologic: no cervical LAD, no supraclavicular LAD Lab Data & Imaging Review 02/12/17 09:30 02/12/17 09:30 WBC 10.82 10^3/uL (3.80-9.50) H 02/12/17 09:30 RBC 4.66 10^6/uL (4.40-6.38) 02/12/17 09:30 Hgb 14.4 g/dL (13.7-17.5) 02/12/17 09:30 Hct 42.7 % (40.0-51.0) 02/12/17 09:30 MCV 91.4 fL (81.5-99.8) 02/12/17 09:30 MCH 30.9 pg (27.9-34.1) 02/12/17 09:30 MCHC 33.8 g/dL (32.4-36.7) 02/12/17 09:30 RDW 13.9 % (11.5-15.2) 02/12/17 09:30 Plt Count 445 10^3/uL (150-400) H 02/12/17 09:30 MPV 9.9 fL (8.7-11.7) 02/12/17 09:30 Neut % (Auto) 61.3 % (39.3-74.2) 02/12/17 09:30 Lymph % (Auto) 24.6 % (15.0-45.0) 02/12/17 09:30 Sherman % (Auto) 11.7 % (4.5-13.0) 02/12/17 09:30 Eos % (Auto) 1.3 % (0.6-7.6) 02/12/17 09:30 Baso % (Auto) 0.4 % (0.3-1.7) 02/12/17 09:30 Nucleat RBC Rel Count 0.0 % (0.0-0.2) 02/12/17 09:30 Absolute Neuts (auto) 6.63 10^3/uL (1.70-6.50) H 02/12/17 09:30 Absolute Lymphs (auto) 2.66 10^3/uL (1.00-3.00) 02/12/17 09:30 Absolute Monos (auto) 1.27 10^3/uL (0.30-0.80) H 02/12/17 09:30 Absolute Eos (auto) 0.14 10^3/uL (0.03-0.40) 02/12/17 09:30 Absolute Basos (auto) 0.04 10^3/uL (0.02-0.10) 02/12/17 09:30 Absolute Nucleated RBC 0.00 10^3/uL (0-0.01) 02/12/17 09:30 Immature Gran % 0.7 % (0.0-1.1) 02/12/17 09:30 Immature Gran # 0.08 10^3/uL (0.00-0.10) 02/12/17 09:30 ESR 27 MM/HR (0-20) H 02/12/17 09:30 Sodium 143 mEq/L (134-144) 02/12/17 09:30 Potassium 4.9 mEq/L (3.5-5.2) 02/12/17 09:30 Chloride 106 mEq/L (97-110) 02/12/17 09:30 Carbon Dioxide 27 mEq/l (22-31) 02/12/17 09:30 Anion Gap 10 mEq/L (8-16) 02/12/17 09:30 BUN 8 mg/dL (7-23) 02/12/17 09:30 Creatinine 0.7 mg/dL (0.7-1.3) 02/12/17 09:30 Estimated GFR > 60 02/12/17 09:30 Glucose 80 mg/dL (70-100) 02/12/17 09:30 Calcium 9.6 mg/dL (8.5-10.4) 02/12/17 09:30 Total Bilirubin 0.4 mg/dL (0.1-1.4) 02/12/17 09:30 Conjugated Bilirubin 0.4 mg/dL (0.0-0.5) 02/12/17 09:30 Unconjugated Bilirubin 0.0 mg/dL (0.0-1.1) 02/12/17 09:30 AST 20 IU/L (17-59) 02/12/17 09:30 ALT 38 IU/L (21-72) 02/12/17 09:30 Alkaline Phosphatase 69 IU/L (38-126) 02/12/17 09:30 C-Reactive Protein 20.5 mg/L (<10.0) H 02/12/17 09:30 Total Protein 6.3 g/dL (6.3-8.2) 02/12/17 09:30 Albumin 3.6 g/dL (3.5-5.0) 02/12/17 09:30 Lipase 189.0 IU/L (23-300) 02/12/17 09:30 C. difficile Tox (PCR) Cancelled 02/12/17 09:30 Visualized and Interpreted imaging results: Yes Interpretation: bilat knee and ankle xrays were reviewed and negative for fracture Assessment & Plan Assessment: 61 y/o male discharged from [facility] on February 05 after being treated for pneumonia with a 5 day course of Levaquin presenting with: #Diarrhea (stool pathogen pcr panel negative) ddx:post infectious diarrhea vs viral vs AE from antibiotics vs parasitic infection vs other plan: -start symptomatic treatment with IVF, Imodium, trial of narcotics -send stool for o&p, leukocytes, and repeat c-diff (given high suspicion in the setting of negative pcr panel) #polyarthritis (bilat knees and ankles) with elevated ESR/CRP suspicious for acute reactive arthritis vs tendinopathy from recent Levaquin use -supportive care with IV toradol -change to po NSAIDS tomorrow if improving -consider interarticular steroid injections vs systemic steroids if not improving -consider mri of bilat ankles to eval for tendon rupture if not improving #H/O COPD and recent pneumonia (stable) -continue home meds #H/o hypertension with controlled BP -continue home meds #H/O tobacco abuse -continue nicotine replacement as ordered #H/O schizoaffective disorder -continue home dose of zoloft Disposition: Admit to inpatient status. He may need snf rehab on discharge due to severe disability given that he is unable to ambulate due to knee and ankle pain Lovenox for DVT-P
[2017-02-12] MEDS: oxyCODONE IR 5 MG TAB PO PRN ×3 (13:45→22:04)
[2017-02-12] MEDS: KETOROLAC 30 MG/1 ML SDV IVP PRN ×2 (13:48→22:05)
[2017-02-12] MEDS: CHLORTHALIDONE 25 MG TAB PO SCH (18:30)
[2017-02-12] MEDS: FLUTICASONE HFA 220 MCG MDI IH SCH ×2 (21:50→22:06)
[2017-02-12] MEDS: ONDANSETRON 4 MG/2 ML VIAL IVP PRN (22:05)
[2017-02-13] MEDS: oxyCODONE IR 5 MG TAB PO PRN ×5 (03:51→21:37)
[2017-02-13] MEDS: ONDANSETRON 4 MG/2 ML VIAL IVP PRN ×3 (03:51→21:36)
[2017-02-13] MEDS: KETOROLAC 30 MG/1 ML SDV IVP PRN ×2 (03:51→11:31)
[2017-02-13 05:41] LABS: % IMMATURE GRANULYOCYTES 0.2 % (0.0-1.1); ABSOLUTE IMMATURE GRANULOCYTES 0.02 10^3/uL (0.00-0.10); ADD DIFF? NO; ADD MORPH? NO; ADD SCAN? NO; ATYPICAL LYMPHOCYTE FLAG 10 (0-99); FRAGMENT RBC FLAG 0 (0-99); HEMATOCRIT 38.9 % (40.0-51.0); HEMOGLOBIN 12.8 g/dL (13.7-17.5); LEFT SHIFT FLG 0 (0-99); LIPEMIA HEMOLYSIS FLAG 80 (0-99); MEAN CELL HEMOGLOBIN CONCENTR. 32.9 g/dL (32.4-36.7); MEAN CELL VOLUME 94.2 fL (81.5-99.8); MEAN PLATELET VOLUME 9.8 fL (8.7-11.7); PLATELET CLUMPS FLAG 10 (0-99); PLATELET COUNT 358 10^3/uL (150-400); RED BLOOD CELL COUNT 4.13 10^6/uL (4.40-6.38); RED CELL DISTRIBUTION WIDTH 13.8 % (11.5-15.2)
[2017-02-13 05:51] LABS: ANION GAP 8 mEq/L (8-16); CALCIUM 8.2 mg/dL (8.5-10.4); CARBON DIOXIDE 30 mEq/l (22-31); CHLORIDE 103 mEq/L (97-110); CREATININE 0.7 mg/dL (0.7-1.3); GLOMERULAR FILTRATION RATE > 60; GLUCOSE 120 mg/dL (70-100); SODIUM 141 mEq/L (134-144)
[2017-02-13] MEDS ORDERED: ALBUTEROL 3 ML DEYVIAL ONE (08:30)
[2017-02-13] MEDS: FLUTICASONE HFA 220 MCG MDI IH SCH ×2 (08:48→20:53)
[2017-02-13] MEDS: amLODIPine BESYLATE 5 MG TAB PO SCH (08:54)
[2017-02-13] MEDS: SERTRALINE HCL 100 MG TAB PO SCH (08:54)
[2017-02-13] MEDS: CHLORTHALIDONE 25 MG TAB PO SCH ×2 (08:54→19:52)
[2017-02-13] MEDS: NICOTINE 21 MG/24 HR PATCH TD SCH (08:55)
[2017-02-13] MEDS: ENOXAPARIN 40 MG/0.4 ML SYR SC SCH (08:55)
[2017-02-13] MEDS: ALBUTEROL 3 ML DEYVIAL IH SCH ×3 (09:01→20:56)
--- NOTE | 2017-02-13 12:35 | HOSPPROG ---
Hospitalist Progress Note Assessment/Plan: 61 y/o male discharged from [facility] on February 05 after being treated for pneumonia with a 5 day course of Levaquin presenting with: #Diarrhea (stool pathogen pcr panel negative) improving suspect post infectious diarrhea (GI pathogen panel negative) plan: -continue symptomatic treatment with Imodium and narcotics #polyarthritis (bilat knees and ankles) with elevated ESR/CRP suspicious for acute reactive arthritis vs tendinopathy from recent Levaquin use (improving) -transition from Toradol to scheduled Motrin for the next few days -decrease oxyir to [id number] and only use to treat breakthrough pain #History of opioid dependency -pt expresses a wish to not be dc'ed on narcotics -continue to minimize opiate #H/O COPD and recent pneumonia (stable) -continue home meds #H/o hypertension with controlled BP -continue home meds #H/O tobacco abuse -continue nicotine replacement as ordered #H/O schizoaffective disorder -continue home dose of zoloft Disposition: pt is too weak to dc back to his independent living situation. Will investigate snf placement Subjective: improved pain in bilat knees and ankles now 1-2 down from 07/11. improved diarrhea. no fever or chills Objective: Vital Signs Temp Pulse Resp BP Pulse Ox 36.6 C 69 16 141/97 H 95 02/13/17 11:23 02/13/17 11:23 02/13/17 11:23 02/13/17 11:23 02/13/17 11:23 Laboratory Results 02/13/17 05:30 02/13/17 05:30 02/12/17 02/13/17 02/14/17 05:59 05:59 05:59 Intake Total 450 Output Total 300 150 Balance 150 -150 - Physical Exam Constitutional: no apparent distress, appears nourished, not in pain Cardiovascular: regular rate and rhythym, no murmur, rub, or gallop Respiratory: no respiratory distress, no rales or rhonchi, clear to auscultation Gastrointestinal: normoactive bowel sounds, soft, non-tender abdomen, no palpable masses, distension, No guarding, No rebound Musculoskeletal: other (bilat knees and ankles are not warm without signs of acute infection) Neurologic: AAOx3, CN II-XII Intact, No facial droop ICD10 Worksheet Patient Problems: Problems Problem Status Onset Schizoaffective disorder, bipolar type Acute Alcohol dependence with physiological dependence, episodic Acute COPD exacerbation Acute Anxiety Acute RANDAL (acute kidney injury) Acute Nausea vomiting and diarrhea Acute Alcoholism Acute Hyponatremia Acute Leukocytosis Acute Elevated bilirubin Acute Hypokalemia Acute Lactic acidosis Acute Alcohol intoxication Acute Leg edema Acute Hand edema Acute Suicidal ideation Acute Pneumonia Acute Chronic obstructive pulmonary disease with acute exacerbation Acute Pneumonia Acute Hypoxia Acute Leukocytosis Acute Diarrhea Acute Bilateral knee pain Acute Bilateral ankle pain Acute
[2017-02-13] MEDS: IBUPROFEN 600 MG TAB PO SCH ×2 (15:36→21:37)
[2017-02-14] MEDS: ONDANSETRON 4 MG/2 ML VIAL IVP PRN (03:11)
[2017-02-14] MEDS: oxyCODONE IR 5 MG TAB PO PRN ×4 (03:11→21:50)
[2017-02-14] MEDS: ALBUTEROL 3 ML DEYVIAL IH SCH ×3 (05:40→17:40)
[2017-02-14] MEDS: ENOXAPARIN 40 MG/0.4 ML SYR SC SCH (08:17)
[2017-02-14] MEDS: NICOTINE 21 MG/24 HR PATCH TD SCH (08:17)
[2017-02-14] MEDS: IBUPROFEN 600 MG TAB PO SCH ×3 (08:17→21:50)
[2017-02-14] MEDS: amLODIPine BESYLATE 5 MG TAB PO SCH (08:18)
[2017-02-14] MEDS: SERTRALINE HCL 100 MG TAB PO SCH (08:18)
[2017-02-14] MEDS: CHLORTHALIDONE 25 MG TAB PO SCH ×2 (08:18→19:46)
[2017-02-14] MEDS ORDERED: ONDANSETRON DISINTEGRATING 4 MG TAB ONE ×2 (08:23→13:19)
[2017-02-14] MEDS: FLUTICASONE HFA 220 MCG MDI IH SCH ×2 (12:20→21:55)
[2017-02-14] MEDS: ONDANSETRON DISINTEGRATING 4 MG TAB PO PRN ×2 (14:00→21:50)
--- NOTE | 2017-02-14 14:43 | HOSPPROG ---
Hospitalist Progress Note Assessment/Plan: 61 y/o male discharged from [facility] on February 05 after being treated for pneumonia with a 5 day course of Levaquin presenting with diarrhea, nausea. Today is my first encounter with the patient, chart reviewed. #Diarrhea (stool pathogen pcr panel negative) improving * post infectious diarrhea (GI pathogen panel negative) * continue symptomatic treatment with Imodium and narcotics no longer having loose stools #nausea * better w Zofran * trial of Marinol * able to eat lunch #No IV access PICC not indicated #polyarthritis (bilateral knees and ankles) with elevated ESR/CRP suspicious for acute reactive arthritis vs tendinopathy from recent Levaquin use (improving ) -transition from Toradol to scheduled Motrin for the next few days -decrease oxy ir to [id number] and only use to treat breakthrough pain -his symptoms occurred w use of Levaquin/suspect more r/t tendinopathy #History of opioid dependency -pt expresses a wish to not be dc'ed on narcotics -continue to minimize opiate #H/O COPD and recent pneumonia (stable) -continue home meds -usually on room air #H/o hypertension with controlled BP -continue home meds #H/O tobacco abuse -continue nicotine replacement as ordered -quit smoking 3 days prior to admission #H/O schizoaffective disorder -continue home dose of zoloft Disposition: pending/ patient feels he can't care for himself/ CM looking at alf care/ has Medicaid/ appreciate CM. Subjective: Liborio says he is worried he can't manage at home/ c/o pain yesenia at right ankle area. Objective: Vital Signs Temp Pulse Resp BP Pulse Ox 36.4 C 86 14 130/80 H 92 02/14/17 12:00 02/14/17 12:12 02/14/17 12:12 02/14/17 12:00 02/14/17 12:12 Laboratory Results 02/13/17 05:30 02/13/17 05:30 02/13/17 02/14/17 02/15/17 05:59 05:59 05:59 Intake Total 450 100 Output Total 300 2600 1775 Balance 150 -2500 -1775 - Physical Exam Constitutional: uncomfortable Eyes: PERRL Ears, Nose, Mouth, Throat: hearing normal Cardiovascular: regular rate and rhythym Respiratory: no respiratory distress Gastrointestinal: normoactive bowel sounds, other (large and round) Skin: warm, normal color Musculoskeletal: muscular tenderness Neurologic: AAOx3 Psychiatric: interacting appropriately, not anxious, not encephalopathic ICD10 Worksheet Patient Problems: Problems Problem Status Onset Bilateral ankle pain Acute Bilateral knee pain Acute Diarrhea Acute RANDAL (acute kidney injury) Acute Alcohol dependence with physiological dependence, episodic Acute Alcohol intoxication Acute Alcoholism Acute Anxiety Acute COPD exacerbation Acute Chronic obstructive pulmonary disease with acute exacerbation Acute Elevated bilirubin Acute Hand edema Acute Hypokalemia Acute Hyponatremia Acute Hypoxia Acute Lactic acidosis Acute Leg edema Acute Leukocytosis Acute Leukocytosis Acute Nausea vomiting and diarrhea Acute Pneumonia Acute Pneumonia Acute Schizoaffective disorder, bipolar type Acute Suicidal ideation Acute
[2017-02-14] MEDS: IPRATROPIUM/ALBUTEROL 3 ML DEYVIAL IH SCH ×2 (17:06→23:09)
[2017-02-14] MEDS: DRONABINOL 2.5 MG CAP PO SCH ×2 (17:22→22:47)
[2017-02-15] MEDS: oxyCODONE IR 5 MG TAB PO PRN ×4 (03:02→22:12)
[2017-02-15] MEDS: ONDANSETRON DISINTEGRATING 4 MG TAB PO PRN ×3 (03:02→22:13)
[2017-02-15] MEDS: IPRATROPIUM/ALBUTEROL 3 ML DEYVIAL IH SCH ×4 (06:04→23:05)
[2017-02-15] MEDS: ENOXAPARIN 40 MG/0.4 ML SYR SC SCH (08:32)
[2017-02-15] MEDS: CHLORTHALIDONE 25 MG TAB PO SCH ×2 (08:32→20:30)
[2017-02-15] MEDS: NICOTINE 21 MG/24 HR PATCH TD SCH (08:32)
[2017-02-15] MEDS: SERTRALINE HCL 100 MG TAB PO SCH (08:32)
[2017-02-15] MEDS: IBUPROFEN 600 MG TAB PO SCH ×3 (08:32→22:13)
[2017-02-15] MEDS: amLODIPine BESYLATE 5 MG TAB PO SCH (08:33)
[2017-02-15] MEDS: DRONABINOL 2.5 MG CAP PO SCH ×2 (08:33→20:30)
[2017-02-15] MEDS: FLUTICASONE HFA 220 MCG MDI IH SCH ×2 (10:14→21:32)
--- NOTE | 2017-02-15 15:01 | HOSPPROG ---
Hospitalist Progress Note Assessment/Plan: 61 y/o male discharged from [facility] on February 05 after being treated for pneumonia with a 5 day course of Levaquin presenting with diarrhea, nausea. #Diarrhea (stool pathogen pcr panel negative) improving * post infectious diarrhea (GI pathogen panel negative) * continue symptomatic treatment with Imodium and narcotics no longer having loose stools #nausea * better w Zofran * trial of Marinol * resolved #No IV access PICC not indicated #polyarthritis (bilateral knees and ankles) with elevated ESR/CRP suspicious for acute reactive arthritis vs tendinopathy from recent Levaquin use (improving ) -transition from Toradol to scheduled Motrin for the next few days -decrease oxy ir to [id number] and only use to treat breakthrough pain -his symptoms occurred w use of Levaquin/suspect more r/t tendinopathy -better today #History of opioid dependency -pt expresses a wish to not be dc'ed on narcotics -continue to minimize opiate #H/O COPD and recent pneumonia (stable) -continue home meds -usually on room air #H/o hypertension with controlled BP -continue home meds #H/O tobacco abuse -continue nicotine replacement as ordered -quit smoking 3 days prior to admission #H/O schizoaffective disorder -continue home dose of zoloft Disposition:CM looking at placment Subjective: Liborio is feeling much better today. Objective: Vital Signs Temp Pulse Resp BP Pulse Ox 36.6 C 71 16 123/84 H 92 02/15/17 12:00 02/15/17 12:00 02/15/17 12:00 02/15/17 12:00 02/15/17 12:00 Laboratory Results 02/13/17 05:30 02/13/17 05:30 02/14/17 02/15/17 02/16/17 05:59 05:59 05:59 Intake Total 100 Output Total 2600 2775 Balance -2500 -2775 - Physical Exam Constitutional: no apparent distress, appears nourished Eyes: PERRL Ears, Nose, Mouth, Throat: hearing normal Cardiovascular: regular rate and rhythym Respiratory: no respiratory distress Gastrointestinal: normoactive bowel sounds, other (large and round) Skin: warm Musculoskeletal: generalized weakness Neurologic: AAOx3 Psychiatric: interacting appropriately, not anxious ICD10 Worksheet Patient Problems: Problems Problem Status Onset Bilateral ankle pain Acute Bilateral knee pain Acute Diarrhea Acute RANDAL (acute kidney injury) Acute Alcohol dependence with physiological dependence, episodic Acute Alcohol intoxication Acute Alcoholism Acute Anxiety Acute COPD exacerbation Acute Chronic obstructive pulmonary disease with acute exacerbation Acute Elevated bilirubin Acute Hand edema Acute Hypokalemia Acute Hyponatremia Acute Hypoxia Acute Lactic acidosis Acute Leg edema Acute Leukocytosis Acute Leukocytosis Acute Nausea vomiting and diarrhea Acute Pneumonia Acute Pneumonia Acute Schizoaffective disorder, bipolar type Acute Suicidal ideation Acute
[2017-02-16] MEDS: oxyCODONE IR 5 MG TAB PO PRN ×4 (04:32→23:15)
[2017-02-16] MEDS: ONDANSETRON DISINTEGRATING 4 MG TAB PO PRN ×3 (04:36→17:43)
[2017-02-16] MEDS: IPRATROPIUM/ALBUTEROL 3 ML DEYVIAL IH SCH ×4 (05:42→22:10)
[2017-02-16] MEDS: CHLORTHALIDONE 25 MG TAB PO SCH ×2 (06:19→18:44)
[2017-02-16] MEDS: NICOTINE 21 MG/24 HR PATCH TD SCH (08:18)
[2017-02-16] MEDS: IBUPROFEN 600 MG TAB PO SCH (08:19)
[2017-02-16] MEDS: SERTRALINE HCL 100 MG TAB PO SCH (08:19)
[2017-02-16] MEDS: DRONABINOL 2.5 MG CAP PO SCH ×2 (08:20→20:51)
[2017-02-16] MEDS: amLODIPine BESYLATE 5 MG TAB PO SCH (08:20)
[2017-02-16] MEDS: ENOXAPARIN 40 MG/0.4 ML SYR SC SCH (08:21)
--- NOTE | 2017-02-16 10:27 | HOSPPROG ---
Hospitalist Progress Note Assessment/Plan: 61 y/o male discharged from [facility] on February 05 after being treated for pneumonia with a 5 day course of Levaquin presenting with diarrhea, nausea. #Diarrhea (stool pathogen pcr panel negative) improving * post infectious diarrhea (GI pathogen panel negative) * continue symptomatic treatment with Imodium and narcotics no longer having loose stools #nausea * resolved #No IV access PICC not indicated #polyarthritis (bilateral knees and ankles) with elevated ESR/CRP suspicious for acute reactive arthritis vs tendinopathy from recent Levaquin use (improving ) -transition from Toradol to scheduled Motrin for the next few days -decrease oxy ir to [id number] and only use to treat breakthrough pain -his symptoms occurred w use of Levaquin/suspect more r/t tendinopathy #History of opioid dependency -pt expresses a wish to not be dc'ed on narcotics -continue to minimize opiate #H/O COPD and recent pneumonia (stable) -continue home meds -usually on room air #H/o hypertension with controlled BP -continue home meds #H/O tobacco abuse -continue nicotine replacement as ordered -quit smoking 3 days prior to admission #H/O schizoaffective disorder -continue home dose of zoloft Disposition: CM found placement at [facility]/ will aim to dc today. Subjective: Liborio said his joints ache from cold weather. Objective: Vital Signs Temp Pulse Resp BP Pulse Ox 36.9 C 91 18 127/58 H 91 L 02/16/17 08:23 02/16/17 08:23 02/16/17 08:23 02/16/17 08:23 02/16/17 08:23 Laboratory Results 02/13/17 05:30 02/13/17 05:30 02/15/17 02/16/17 02/17/17 05:59 05:59 05:59 Intake Total 350 Output Total 2775 500 Balance -2775 -150 - Physical Exam Constitutional: uncomfortable Eyes: PERRL Ears, Nose, Mouth, Throat: hearing normal Cardiovascular: regular rate and rhythym Respiratory: no respiratory distress, no rales or rhonchi, clear to auscultation Gastrointestinal: other (large and round) Skin: warm Musculoskeletal: generalized weakness Neurologic: AAOx3 Psychiatric: interacting appropriately ICD10 Worksheet Patient Problems: Problems Problem Status Onset Bilateral ankle pain Acute Bilateral knee pain Acute Diarrhea Acute RANDAL (acute kidney injury) Acute Alcohol dependence with physiological dependence, episodic Acute Alcohol intoxication Acute Alcoholism Acute Anxiety Acute COPD exacerbation Acute Chronic obstructive pulmonary disease with acute exacerbation Acute Elevated bilirubin Acute Hand edema Acute Hypokalemia Acute Hyponatremia Acute Hypoxia Acute Lactic acidosis Acute Leg edema Acute Leukocytosis Acute Leukocytosis Acute Nausea vomiting and diarrhea Acute Pneumonia Acute Pneumonia Acute Schizoaffective disorder, bipolar type Acute Suicidal ideation Acute
[2017-02-16] MEDS: FLUTICASONE HFA 220 MCG MDI IH SCH ×2 (11:09→22:09)
[2017-02-17] MEDS: IPRATROPIUM/ALBUTEROL 3 ML DEYVIAL IH SCH ×2 (05:41→14:41)
[2017-02-17] MEDS: CHLORTHALIDONE 25 MG TAB PO SCH (06:07)
[2017-02-17] MEDS: oxyCODONE IR 5 MG TAB PO PRN ×2 (06:08→12:24)
--- NOTE | 2017-02-17 08:50 | HOSPPROG ---
Hospitalist Progress Note Assessment/Plan: 61 y/o male discharged from [facility] on February 05 after being treated for pneumonia with a 5 day course of Levaquin presenting with diarrhea, nausea. #Diarrhea (stool pathogen pcr panel negative) improving * post infectious diarrhea (GI pathogen panel negative) * continue symptomatic treatment with Imodium and narcotics no longer having loose stools #nausea * resolved #No IV access PICC not indicated #polyarthritis (bilateral knees and ankles) with elevated ESR/CRP suspicious for acute reactive arthritis vs tendinopathy from recent Levaquin use (improving ) -transition from Toradol to scheduled Motrin for the next few days -decrease oxy ir to [id number] and only use to treat breakthrough pain -his symptoms occurred w use of Levaquin/suspect more r/t tendinopathy #History of opioid dependency -pt expresses a wish to not be dc'ed on narcotics -continue to minimize opiate #H/O COPD and recent pneumonia (stable) -continue home meds -usually on room air #H/o hypertension with controlled BP -continue home meds #H/O tobacco abuse -continue nicotine replacement as ordered -quit smoking 3 days prior to admission #H/O schizoaffective disorder -continue home dose of zoloft Disposition: dc home Subjective: Liborio is feeling fine/has chronic aches. Objective: Vital Signs Temp Pulse Resp BP Pulse Ox 36.6 C 83 18 104/68 93 02/17/17 04:00 02/17/17 04:00 02/17/17 04:00 02/17/17 06:07 02/17/17 04:00 Laboratory Results 02/13/17 05:30 02/13/17 05:30 02/16/17 02/17/17 02/18/17 05:59 05:59 05:59 Intake Total 350 2987 Output Total 500 2840 Balance -150 147 - Physical Exam Constitutional: no apparent distress, appears nourished Eyes: PERRL Ears, Nose, Mouth, Throat: hearing normal Respiratory: no respiratory distress Gastrointestinal: normoactive bowel sounds Skin: warm Musculoskeletal: muscular tenderness, generalized weakness Neurologic: AAOx3 Psychiatric: interacting appropriately ICD10 Worksheet Patient Problems: Problems Problem Status Onset Bilateral ankle pain Acute Bilateral knee pain Acute Diarrhea Acute RANDAL (acute kidney injury) Acute Alcohol dependence with physiological dependence, episodic Acute Alcohol intoxication Acute Alcoholism Acute Anxiety Acute COPD exacerbation Acute Chronic obstructive pulmonary disease with acute exacerbation Acute Elevated bilirubin Acute Hand edema Acute Hypokalemia Acute Hyponatremia Acute Hypoxia Acute Lactic acidosis Acute Leg edema Acute Leukocytosis Acute Leukocytosis Acute Nausea vomiting and diarrhea Acute Pneumonia Acute Pneumonia Acute Schizoaffective disorder, bipolar type Acute Suicidal ideation Acute
--- NOTE | 2017-02-17 08:57 | PDIAF ---
- Diagnosis Diagnosis: diarrhea, tendinopathy Code Status: Full Code - Medication Management Discharge Medications: Medications to Continue on Transfer Ibuprofen [Motrin (*)] 600 mg PO DAILY PRN 06/29/16 [Last Taken 06/28/16] Sertraline HCl [Zoloft 100mg (*)] 100 mg PO DAILY 06/29/16 [Last Taken 02/08/17] Albuterol [Proventil Inhaler HFA (*)] 1 - 2 puffs IH Q4H PRN 01/25/17 [Last Taken 01/29/17] Amlodipine Besylate [Norvasc] 10 mg PO DAILY 01/25/17 [Last Taken 02/08/17] Chlorthalidone [Chlorthalidone 25 mg (*)] 25 mg PO BID@01/25/17 [Last Taken 02/08/17] Fluticasone Hfa 220 Mcg [Flovent 220 MCG Hfa MDI (*)] 1 puffs IH BID #1 mdi 04/17 [Last Taken 02/08/17] Tamsulosin HCl [Flomax 0.4 MG (*)] 0.4 mg PO DAILY PRN 02/12/17 [Last Taken Unknown] Discharge Medications: Refer to the Discharge Home Medication list for PRN reason. PICC Care - Routine: N/A - Orders Services needed: Home Care, Physical Therapy, Occupational Therapy Home Care Face to Face: I certify that this patient was under my care and that I had the required [id number] encounter meeting the encounter requirements on the discharge day. My findings support the fact that the patient is homebound as defined in CMS Chapter 7 Medicare Benefits Manual 30.1.1, The condition of the patient is such that there exists a normal inability to leave home and consequently, leaving home would require a considerable and taxing effort. Diet Recommendation: no restrictions on diet Diet Texture: Regular Texture Diet - Follow Up Care Current Providers and Referrals: Patient,NotPresent [Unknown] - As per Instructions
[2017-02-17] MEDS: FLUTICASONE HFA 220 MCG MDI IH SCH (09:20)
[2017-02-17] MEDS: SERTRALINE HCL 100 MG TAB PO SCH (09:41)
[2017-02-17] MEDS: amLODIPine BESYLATE 5 MG TAB PO SCH (09:41)
[2017-02-17] MEDS: DRONABINOL 2.5 MG CAP PO SCH (09:41)
[2017-02-17] MEDS: NICOTINE 21 MG/24 HR PATCH TD SCH (09:42)
[2017-02-17] MEDS: ENOXAPARIN 40 MG/0.4 ML SYR SC SCH (09:42)
--- NOTE | 2017-02-17 11:12 | GDS ---
[f rep st] DISCHARGE SUMMARY DISCHARGE DIAGNOSES: 1. Diarrhea. 2. Nausea. 3. Polyarthritis bilateral knees and ankles. 4. History of opioid dependency. 5. History of chronic obstructive pulmonary disease, and recent pneumonia. 6. History of hypertension with controlled blood pressure. 7. History of tobacco use. 8. History of schizoaffective disorder. BRIEF HISTORY: The patient is a 61-year-old gentleman with a history of schizoaffective disorder, COPD and substance abuse, who was recently discharged on February 05 after being treated for pneumonia. Since his discharge, he developed severe pain in both ankles and his knees. He also started having significant diarrhea. He was admitted for further care. HOSPITAL COURSE PER PROBLEM: 1. Diarrhea, resolved. A GI pathogen was performed which was negative. 2. Nausea, resolved. 3. Polyarthritis bilateral knees and ankles. He had an elevated sedimentation rate and CRP. Suspicious for acute reactive arthritis versus tendinopathy. He had been on Levaquin, which may have caused some tendinopathy. He is ambulating overall well with physical therapy and occupational therapy. He will get home care. 4. History of opioid dependency. He agreed that we would not discharge him on opiates because of this. 5. History of COPD and recent pneumonia. He is on 1-2 L with saturations in the mid 90s. On room air his oxygen levels range from 84 to 88 %. 6. Hypertension, controlled. 7. Tobacco abuse. Nicotine replacement has been ordered. 8. History of schizoaffective disorder, stable on Zoloft. PENDING LABS AND TESTS: None. CONDITION AT DISCHARGE: Stable. Blood pressure is 104/68, heart rate is 83, respiratory rate is 18, O2 saturations on 2 L are 92%, temperature 36.6 Celsius. MEDICATIONS AT DISCHARGE: Please see the EMR. DISCHARGE INSTRUCTIONS: 1. Encouraging him to ambulate frequently and work with physical therapy. 2. Recommended that he join a gym and do some pool therapy to help with his arthritis. 3. No smoking around the oxygen. Greater than 30 minutes discharging and coordinating care. /[id number]/MODL MTDD
[2017-02-17] MEDS: ONDANSETRON DISINTEGRATING 4 MG TAB PO PRN (12:24)
[2017-02-17 15:35] VITALS: BP 134/93; PULSE 93; RESP 16; TEMP 98.1; O2SAT 91
== END 2017-02-17 16:08 | disposition home health service (06) | DRG 392 ==
LOC: EDUNIT# → OBSVTOIN 12:47 → F3N 13:15 → F1N 02-15 09:51
PROVIDERS: ADMIT Family Medicine; ATTEND Hospitalist
DX: R19.7 Diarrhea, unspecified (principal); M13.0 Polyarthritis, unspecified; J44.9 Chronic obstructive pulmonary disease, unspecified; I10 Essential (primary) hypertension; F25.9 Schizoaffective disorder, unspecified; F17.200 Nicotine dependence, unspecified, uncomplicated
CPT/HCPCS: 96374; 97116-GP; 97162-GP; 97166-GO; 97530-GO; 97530-GP; J1170; J1650; J1885; J2405

== ENCOUNTER 2017-02-18 23:12 | Emergency (ER) | payer MEDICAID ==
[2017-02-18 23:21] VITALS: BP 144/74; PULSE 130; RESP 20; TEMP 98.4; O2SAT 92
--- NOTE | 2017-02-18 23:39 | EDPHY ---
H & P Stated Complaint: whole body pain-recent DC from [facility] for PNA HPI/ROS: HPI CHIEF COMPLAINT: Pain all over HISTORY OF PRESENT ILLNESS: This patient very pleasant 61-year-old male, presents emergency room by EMS with pain all over his body. Patient states he was recently hospitalized here for arthritic pain specifically in his knees and Achilles tendons. He also tells me that he had a diarrheal illness. The diarrhea has improved. Patient presents back to the emergency room stating that his knee pain bilaterally, Achilles bilaterally, and pain throughout all of his joints are hurting him. Tells me has no pain medicine at home. He denies shortness of breath, chest pain. Denies fever. Of note upon arrival here to the emergency room is noted to be tachycardic in the 130s. Patient also reports to me he feels anxious. Past Medical History: Schizoaffective disorder, COPD on 1-2 L, hypertension, recent hospitalization for diarrhea and arthritis Past Surgical History: No recent surgical history Social History: Alcohol use, denies daily tobacco. Or drugs. Family History: Noncontributory ROS REVIEW OF SYSTEMS: A comprehensive 10 point review of systems is otherwise negative aside from elements mentioned in the history of present illness. Exam Constitutional appears nontoxic triage nursing summary reviewed, vital signs reviewed, awake/alert. Eyes normal conjunctivae and sclera, EOMI, PERRLA. HENT normal inspection, atraumatic, moist mucus membranes, no epistaxis, neck supple/ no meningismus, no raccoon eyes. Respiratory clear to auscultation bilaterally, normal breath sounds, no respiratory distress, no wheezing. Cardiovascular tachycardic , regular rhythm, no murmur, no edema, distal pulses normal. Gastrointestinal soft, non-tender, no rebound, no guarding, normal bowel sounds, no distension, no pulsatile mass. Genitourinary no CVA tenderness. Musculoskeletal patient complaining of bilateral knee pain, bilateral Achilles pain, no evidence of Achilles rupture, full range of motion of both knees. Skin pink, warm, & dry, no rash, skin atraumatic. Neurologic awake, alert and oriented x 3, AAOx3, moves all 4 extremities equally, motor intact, sensory intact, CN II-XII intact, normal cerebellar, normal vision, normal speech. Psychiatric normal mood/affect. Heme/Lymph/Immune no lymphadenopathy. Differential Diagnosis: Includes but is not limited to in a particular order reaction to Levaquin causing tendinitis, arthritis, dehydration, alcohol withdrawal Medical Decision Making: Plan for this patient IV establishment, acute IV pain control here in the emergency room. Check basic blood work, IV fluid bolus. Room chest x-ray. Re-evaluation: 0156AM: At this time patient's blood work has been reviewed is unremarkable. Chest x-ray pending. I did re-evaluate him. 0157AM: Patient does feel better after IV fluids and IV pain medicine. He is agreeable on discharge planning. Blood work reviewed. He agrees to go home. His blood work is reassuring vital signs reassuring he is sleeping at this time. He does tell me once I woke him that his pain is greatly improved. I will give him a prescription for ibuprofen. This hopefully will help with his arthritic pain musculoskeletal pain. Source: Patient - Personal History Current Tetanus Diphtheria and Acellular Pertussis (TDAP): Yes Tetanus Vaccine Date: < 10 YEARS - Medical/Surgical History Hx Asthma: Yes Hx Chronic Respiratory Disease: No Hx Diabetes: No Hx Cardiac Disease: Yes Hx Renal Disease: No Hx Cirrhosis: Yes Hx Alcoholism: Yes Hx HIV/AIDS: No Hx Splenectomy or Spleen Trauma: No Other PMH: MEDICAL- ANXIETY, LIVER DISEASE, ASCITES, IVDA, HEP C+, alcohol and drug abuse/MENTAL HEALTH, htn,cirrohsis, hx of 3 ruptured discs/back surgs/ tonsillectomy, - Social History Smoking Status: Heavy smoker Constitutional: Initial Vital Signs Temperature (C) 36.9 C 02/18/17 23:19 Heart Rate 130 H 02/18/17 23:19 Respiratory Rate 20 02/18/17 23:19 Blood Pressure 144/74 H 02/18/17 23:19 O2 Sat (%) 92 02/18/17 23:19 O2 Delivery Mode Room Air Allergies/Adverse Reactions: levofloxacin [From Levaquin] Allergy (Severe, Verified 02/18/17 23:19) tendinopathy lisinopril Allergy (Verified 02/18/17 23:19) Home Medications: Medication Instructions Recorded Ibuprofen [Motrin (*)] 600 mg PO DAILY PRN 06/29/16 Sertraline HCl [Zoloft 100mg (*)] 100 mg PO DAILY 06/29/16 Albuterol [Proventil Inhaler HFA 1 - 2 puffs IH Q4H PRN 01/25/17 (*)] Amlodipine Besylate [Norvasc] 10 mg PO DAILY 01/25/17 Chlorthalidone [Chlorthalidone 25 25 mg PO BID@07,19 01/25/17 mg (*)] Fluticasone Hfa 220 Mcg [Flovent 1 puffs IH BID #1 mdi 02/05/17 220 MCG Hfa MDI (*)] Tamsulosin HCl [Flomax 0.4 MG (*)] 0.4 mg PO DAILY PRN 02/12/17 Ibuprofen [Motrin (*)] 600 mg PO BID #10 tab 02/19/17 Medical Decision Making - Data Points Laboratory Results: Laboratory Results 02/19/17 00:10 02/19/17 00:10 Medications Given: Discontinued Medications Hydromorphone HCl (Dilaudid) 1 mg IVP EDNOW ONE Stop: 02/18/17 23:52 Last Admin: 02/19/17 00:15 Dose: 1 mg Sodium Chloride (Ns) 1,000 mls @ 0 mls/hr IV ONCE ONE PRN Reason: Wide Open Stop: 02/18/17 23:52 Last Admin: 02/19/17 00:16 Dose: 1,000 mls Ibuprofen (Motrin) 600 mg PO EDNOW ONE Stop: 02/19/17 00:28 Last Admin: 02/19/17 00:58 Dose: 600 mg Ondansetron HCl (Zofran) 4 mg IVP EDNOW ONE Stop: 02/18/17 23:52 Last Admin: 02/19/17 00:18 Dose: 4 mg Departure - Departure Disposition: Home, Routine, Self-Care Clinical Impression: Arthritis Condition: Good Instructions: Arthritis (ED) Additional Instructions: 1. Return emergency room if you have any worsening symptoms questions or concerns. 2. Recommend he follow up with her primary care doctor. Referrals: Emely Sanchez MD [Primary Care Provider] - As per Instructions Prescriptions: Ibuprofen [Motrin (*)] 600 mg PO BID #10 tab
[2017-02-18] MEDS ORDERED: ONDANSETRON 4 MG/2 ML VIAL IVP ONE (23:51)
[2017-02-18] MEDS ORDERED: NS 1,000 ML IV ONE (23:51)
[2017-02-18] MEDS ORDERED: HYDROmorphONE/DILAUDID 1 MG/ML SYR IVP ONE (23:51)
[2017-02-19 00:25] LABS: % IMMATURE GRANULYOCYTES 0.4 % (0.0-1.1); ABSOLUTE IMMATURE GRANULOCYTES 0.04 10^3/uL (0.00-0.10); ADD DIFF? NO; ADD MORPH? NO; ADD SCAN? NO; ATYPICAL LYMPHOCYTE FLAG 10 (0-99); FRAGMENT RBC FLAG 0 (0-99); HEMATOCRIT 44.8 % (40.0-51.0); HEMOGLOBIN 15.4 g/dL (13.7-17.5); LEFT SHIFT FLG 0 (0-99); LIPEMIA HEMOLYSIS FLAG 90 (0-99); MEAN CELL HEMOGLOBIN 30.9 pg (27.9-34.1); MEAN CELL HEMOGLOBIN CONCENTR. 34.4 g/dL (32.4-36.7); MEAN CELL VOLUME 89.8 fL (81.5-99.8); MEAN PLATELET VOLUME 10.1 fL (8.7-11.7); PLATELET CLUMPS FLAG 10 (0-99); PLATELET COUNT 330 10^3/uL (150-400); RED BLOOD CELL COUNT 4.99 10^6/uL (4.40-6.38)
[2017-02-19] MEDS ORDERED: IBUPROFEN 600 MG TAB PO ONE (00:27)
[2017-02-19 00:57] LABS: ALANINE AMINOTRANSFERASE 26 IU/L (21-72); ALKALINE PHOSPHATASE 83 IU/L (38-126); ANION GAP 12 mEq/L (8-16); ASPARTATE AMINOTRANSFERASE 25 IU/L (17-59); BILIRUBIN,TOTAL 0.8 mg/dL (0.1-1.4); BILIRUBIN-CONJUGATED 0.5 mg/dL (0.0-0.5); BILIRUBIN-UNCONJUGATED 0.3 mg/dL (0.0-1.1); CALCIUM 10.2 mg/dL (8.5-10.4); CARBON DIOXIDE 25 mEq/l (22-31); CHLORIDE 101 mEq/L (97-110); CREATININE 0.7 mg/dL (0.7-1.3); ETHANOL SERUM < 10 mg/dL (0-10); GLOMERULAR FILTRATION RATE > 60; GLUCOSE 130 mg/dL (70-100); POTASSIUM 3.6 mEq/L (3.5-5.2); SODIUM 138 mEq/L (134-144); TOTAL PROTEIN 7.4 g/dL (6.3-8.2)
== END 2017-02-19 02:35 | disposition home or self-care (01) ==
LOC: EDUNIT# → EEVIPCON 23:12
DX: M17.0 Bilateral primary osteoarthritis of knee (principal); I10 Essential (primary) hypertension; F17.200 Nicotine dependence, unspecified, uncomplicated; J45.909 Unspecified asthma, uncomplicated
CPT/HCPCS: 96374; G0480; J1170; J2405

== ENCOUNTER 2017-02-25 04:22 | Emergency (ER) | payer MEDICAID ==
[2017-02-25 04:32] VITALS: BP 161/101; PULSE 92; RESP 18; TEMP 98.2; O2SAT 94
[2017-02-25] MEDS ORDERED: chlordiazePOXIDE 25 MG CAP PO ONE (05:08)
[2017-02-25] MEDS ORDERED: LIDOCAINE 5% 1 EA PATCH TD ONE (05:41)
[2017-02-25 06:02] LABS: ALANINE AMINOTRANSFERASE 32 IU/L (21-72); ALBUMIN 3.8 g/dL (3.5-5.0); ALKALINE PHOSPHATASE 89 IU/L (38-126); ANION GAP 12 mEq/L (8-16); ASPARTATE AMINOTRANSFERASE 20 IU/L (17-59); BILIRUBIN,TOTAL 0.4 mg/dL (0.1-1.4); CALCIUM 9.2 mg/dL (8.5-10.4); CARBON DIOXIDE 22 mEq/l (22-31); CHLORIDE 108 mEq/L (97-110); CREATININE 0.6 mg/dL (0.7-1.3); ETHANOL SERUM < 10 mg/dL (0-10); GLOMERULAR FILTRATION RATE > 60; GLUCOSE 107 mg/dL (70-100); POTASSIUM 3.9 mEq/L (3.5-5.2); SODIUM 142 mEq/L (134-144); TOTAL PROTEIN 6.6 g/dL (6.3-8.2)
[2017-02-25] MEDS ORDERED: IBUPROFEN 600 MG TAB PO ONE (06:31)
[2017-02-25 06:42] LABS: % IMMATURE GRANULYOCYTES 0.5 % (0.0-1.1); ABSOLUTE IMMATURE GRANULOCYTES 0.04 10^3/uL (0.00-0.10); ADD DIFF? NO; ADD MORPH? NO; ADD SCAN? NO; ATYPICAL LYMPHOCYTE FLAG 10 (0-99); FRAGMENT RBC FLAG 0 (0-99); HEMATOCRIT 39.4 % (40.0-51.0); HEMOGLOBIN 13.7 g/dL (13.7-17.5); LEFT SHIFT FLG 0 (0-99); LIPEMIA HEMOLYSIS FLAG 90 (0-99); MEAN CELL HEMOGLOBIN 30.6 pg (27.9-34.1); MEAN CELL HEMOGLOBIN CONCENTR. 34.8 g/dL (32.4-36.7); MEAN CELL VOLUME 87.9 fL (81.5-99.8); MEAN PLATELET VOLUME 9.7 fL (8.7-11.7); PLATELET CLUMPS FLAG 0 (0-99); PLATELET COUNT 322 10^3/uL (150-400); RED BLOOD CELL COUNT 4.48 10^6/uL (4.40-6.38); RED CELL DISTRIBUTION WIDTH 13.5 % (11.5-15.2)
--- NOTE | 2017-02-25 07:00 | EDPHY ---
H & P Stated Complaint: c/o increased anxiety, increased sciatic nerve pain, diarrhea x 1 day Source: Patient, EMS Exam Limitations: No limitations - Personal History Tetanus Vaccine Date: < 10 YEARS - Medical/Surgical History Hx Asthma: Yes Hx Chronic Respiratory Disease: No Hx Diabetes: No Hx Cardiac Disease: Yes Hx Renal Disease: No Hx Cirrhosis: Yes Hx Alcoholism: Yes Hx HIV/AIDS: No Hx Splenectomy or Spleen Trauma: No Other PMH: MEDICAL- ANXIETY, LIVER DISEASE, ASCITES, IVDA, HEP C+, alcohol and drug abuse/MENTAL HEALTH, htn,cirrohsis, hx of 3 ruptured discs/back surgs/ tonsillectomy, - Social History Smoking Status: Heavy smoker Time Seen by Provider: 02/25/17 04:57 HPI/ROS: HPI The patient presents with increasing anxiety since 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 This is caused him to feel suicidal and he says that he lied of his pill bottles on his desk with thoughts of taking them in an effort to end his life. He also into the 3rd floor of his apartment building and contemplated jumping off the roof, however was not sure if this would be enough to kill him. A neighbor encouraged him to seek help and he called 911. He is brought in by ambulance. Currently he has multiple complaints including increasing anxiety, lower back pain, trouble breathing. However, these are things that he deals with on a daily basis and says that his depressed mood is his most pressing concern. He is brought in by ambulance. REVIEW OF SYSTEMS Constitutional: No fever, no chills. Eyes: No discharge. ENT: No sore throat. Cardiovascular: No chest pain, no palpitations. Respiratory: No cough, no shortness of breath. Gastrointestinal: No abdominal pain, no vomiting. Genitourinary: No hematuria. Musculoskeletal: No back pain. Skin: No rashes. Neurological: No headache. PMHx: Anxiety, hep C cirrhosis, chronic lower back pain Soc Hx: Alcohol use, tobacco use, lives in an apartment PHYSICAL General Appearance: Alert, anxious appearing Eyes: Pupils equal and round no pallor or injection ENT, Mouth: Mucous membranes moist Respiratory: There are no retractions, lungs are clear to auscultation Cardiovascular: Regular rate and rhythm Gastrointestinal: Abdomen is soft and non-tender, no masses, bowel sounds normal Neurological: A&O, moves all extremities Skin: Warm and dry, no rashes Musculoskeletal: Neck is supple non tender Extremities: symmetrical, full range of motion Psychiatric: Patient is oriented X 3, there is no agitation (Janny Paz) Constitutional: Initial Vital Signs Temperature (C) 36.8 C 02/25/17 04:26 Heart Rate 92 02/25/17 04:26 Respiratory Rate 18 02/25/17 04:26 Blood Pressure 161/101 H 02/25/17 04:26 O2 Sat (%) 94 02/25/17 04:26 O2 Delivery Mode Room Air Allergies/Adverse Reactions: levofloxacin [From Levaquin] Allergy (Severe, Verified 02/25/17 04:28) tendinopathy lisinopril Allergy (Verified 02/25/17 04:28) Home Medications: Medication Instructions Recorded Ibuprofen [Motrin (*)] 600 mg PO DAILY PRN 06/29/16 Sertraline HCl [Zoloft 100mg (*)] 100 mg PO DAILY 06/29/16 Albuterol [Proventil Inhaler HFA 1 - 2 puffs IH Q4H PRN 01/25/17 (*)] Amlodipine Besylate [Norvasc] 10 mg PO DAILY 01/25/17 Chlorthalidone [Chlorthalidone 25 25 mg PO BID@07,19 01/25/17 mg (*)] Fluticasone Hfa 220 Mcg [Flovent 1 puffs IH BID #1 mdi 02/05/17 220 MCG Hfa MDI (*)] Tamsulosin HCl [Flomax 0.4 MG (*)] 0.4 mg PO DAILY PRN 02/12/17 Ibuprofen [Motrin (*)] 600 mg PO BID #10 tab 02/19/17 Medical Decision Making Differential Diagnosis: This is a 61-year-old male, well known to our emergency department, with history of anxiety, cirrhosis, alcohol abuse, tobacco abuse who presents brought in by ambulance feeling anxious and suicidal. He has multiple complaints, however these are usual for him and not far from his baseline. Differential diagnosis includes anxiety was suicidality, polysubstance abuse, alcohol withdrawal. Plan for basic labs, mental health evaluation. I do not feel he is at imminent risk of hurting himself, thus I will not place him on a mental health hold and will defer to our mental health colleagues. At 7:00 a.m., the case will be signed out to the oncoming provider Dr. Gutierrez. (Janny Paz) Other Provider: Patient signed out to me at 0700. Patient asking for pain medication and benzodiazepines. I informed him that we would be happy to have mental health evaluate him but would not give additional medications in the interim. Shortly thereafter I was informed by the nurse that the patient would like to be discharged, which I think is appropriate. (Hans Gutierrez) - Data Points Laboratory Results: Laboratory Results 02/25/17 06:35 02/25/17 05:27 02/25/17 02/25/17 06:35 05:27 WBC 8.22 10^3/uL 10^3/uL (3.80-9.50) RBC 4.48 10^6/uL 10^6/uL (4.40-6.38) Hgb 13.7 g/dL g/dL (13.7-17.5) Hct 39.4 % L % (40.0-51.0) MCV 87.9 fL fL (81.5-99.8) MCH 30.6 pg pg (27.9-34.1) MCHC 34.8 g/dL g/dL (32.4-36.7) RDW 13.5 % % (11.5-15.2) Plt Count 322 10^3/uL 10^3/uL (150-400) MPV 9.7 fL fL (8.7-11.7) Neut % (Auto) 55.1 % % (39.3-74.2) Lymph % (Auto) 28.2 % % (15.0-45.0) [place] % (Auto) 13.3 % H % (4.5-13.0) Eos % (Auto) 2.3 % % (0.6-7.6) Baso % (Auto) 0.6 % % (0.3-1.7) Nucleat RBC Rel Count 0.0 % % (0.0-0.2) Absolute Neuts (auto) 4.53 10^3/uL 10^3/uL (1.70-6.50) Absolute Lymphs (auto) 2.32 10^3/uL 10^3/uL (1.00-3.00) Absolute Monos (auto) 1.09 10^3/uL H 10^3/uL (0.30-0.80) Absolute Eos (auto) 0.19 10^3/uL 10^3/uL (0.03-0.40) Absolute Basos (auto) 0.05 10^3/uL 10^3/uL (0.02-0.10) Absolute Nucleated RBC 0.00 10^3/uL 10^3/uL (0-0.01) Immature Gran % 0.5 % % (0.0-1.1) Immature Gran # 0.04 10^3/uL 10^3/uL (0.00-0.10) Sodium 142 mEq/L mEq/L (134-144) Potassium 3.9 mEq/L mEq/L (3.5-5.2) Chloride 108 mEq/L mEq/L (97-110) Carbon Dioxide 22 mEq/l mEq/l (22-31) Anion Gap 12 mEq/L mEq/L (8-16) BUN 11 mg/dL mg/dL (7-23) Creatinine 0.6 mg/dL L mg/dL (0.7-1.3) Estimated GFR > 60 Glucose 107 mg/dL H mg/dL (70-100) Calcium 9.2 mg/dL mg/dL (8.5-10.4) Total Bilirubin 0.4 mg/dL mg/dL (0.1-1.4) AST 20 IU/L IU/L (17-59) ALT 32 IU/L IU/L (21-72) Alkaline Phosphatase 89 IU/L IU/L (38-126) Total Protein 6.6 g/dL g/dL (6.3-8.2) Albumin 3.8 g/dL g/dL (3.5-5.0) Ethyl Alcohol < 10 mg/dL mg/dL (0-10) Medications Given: Discontinued Medications Chlordiazepoxide HCl (Librium) 25 mg PO EDNOW ONE Stop: 02/25/17 05:09 Last Admin: 02/25/17 05:45 Dose: 25 mg Ibuprofen (Motrin) 600 mg PO EDNOW ONE Stop: 02/25/17 06:32 Last Admin: 02/25/17 06:40 Dose: 600 mg Lidocaine (Lidoderm 5%) 1 ea TD DAILY JEROME Stop: 08/24/17 08:59 Last Admin: 02/25/17 05:50 Dose: 1 ea Departure - Departure Disposition: Home, Routine, Self-Care Clinical Impression: Alcohol dependence with physiological dependence, episodic, Anxiety Condition: Good Instructions: Anxiety (ED) Referrals: [facility],. [Clinic] - As per Instructions
[2017-02-25] MEDS ORDERED: LIDOCAINE 5% 1 EA PATCH TD SCH (09:00)
[2017-02-25] MEDS ORDERED: PATCH REMOVAL 1 EA PATCH TD SCH (21:00)
== END 2017-02-25 07:20 | disposition home or self-care (01) ==
LOC: EDUNIT#
DX: F10.259 Alcohol dependence with alcohol-induced psychotic disorder, unspecified (principal); J45.909 Unspecified asthma, uncomplicated; I10 Essential (primary) hypertension; F17.200 Nicotine dependence, unspecified, uncomplicated
CPT/HCPCS: G0480

== ENCOUNTER 2017-02-25 19:15 | Emergency (ER) | payer MEDICAID ==
[2017-02-25 20:24] LABS: % IMMATURE GRANULYOCYTES 0.4 % (0.0-1.1); ABSOLUTE IMMATURE GRANULOCYTES 0.03 10^3/uL (0.00-0.10); ADD DIFF? NO; ADD MORPH? NO; ADD SCAN? NO; ATYPICAL LYMPHOCYTE FLAG 10 (0-99); FRAGMENT RBC FLAG 0 (0-99); HEMATOCRIT 39.4 % (40.0-51.0); HEMOGLOBIN 13.6 g/dL (13.7-17.5); LEFT SHIFT FLG 0 (0-99); LIPEMIA HEMOLYSIS FLAG 90 (0-99); MEAN CELL HEMOGLOBIN 31.1 pg (27.9-34.1); MEAN CELL HEMOGLOBIN CONCENTR. 34.5 g/dL (32.4-36.7); MEAN PLATELET VOLUME 9.8 fL (8.7-11.7); PLATELET CLUMPS FLAG 10 (0-99); PLATELET COUNT 326 10^3/uL (150-400); RED BLOOD CELL COUNT 4.38 10^6/uL (4.40-6.38); RED CELL DISTRIBUTION WIDTH 13.6 % (11.5-15.2)
[2017-02-25 20:26] VITALS: RESP 16
[2017-02-25 20:37] LABS: ANION GAP 12 mEq/L (8-16); CALCIUM 8.9 mg/dL (8.5-10.4); CARBON DIOXIDE 21 mEq/l (22-31); CHLORIDE 107 mEq/L (97-110); CREATININE 0.6 mg/dL (0.7-1.3); ETHANOL SERUM < 10 mg/dL (0-10); GLOMERULAR FILTRATION RATE > 60; GLUCOSE 100 mg/dL (70-100); POTASSIUM 4.1 mEq/L (3.5-5.2); SODIUM 140 mEq/L (134-144)
[2017-02-25] MEDS ORDERED: LORazepam 1 MG TAB PO ONE (20:43)
[2017-02-25 21:02] LABS: SALICYLATE < 1.0 mg/dL (2.0-20.0)
[2017-02-26] MEDS ORDERED: LORazepam 1 MG TAB ONE (01:19)
[2017-02-26] MEDS ORDERED: LORazepam 1 MG TAB PO ONE (01:21)
--- NOTE | 2017-02-26 02:03 | EDPHY ---
H & P Stated Complaint: SI - Personal History Tetanus Vaccine Date: < 10 YEARS - Medical/Surgical History Hx Asthma: Yes Hx Chronic Respiratory Disease: No Hx Diabetes: No Hx Cardiac Disease: Yes Hx Renal Disease: No Hx Cirrhosis: Yes Hx Alcoholism: Yes Hx HIV/AIDS: No Hx Splenectomy or Spleen Trauma: No Other PMH: MEDICAL- ANXIETY, LIVER DISEASE, ASCITES, IVDA, HEP C+, alcohol and drug abuse/MENTAL HEALTH, htn,cirrohsis, hx of 3 ruptured discs/back surgs/ tonsillectomy, - Social History Smoking Status: Heavy smoker Time Seen by Provider: 02/25/17 19:17 HPI/ROS: Chief complaint: Suicidal ideation, on mental health hold History of present illness: This is a 61-year-old male brought to the emergency department by EMS for evaluation of suicidal ideation. The police have placed him on a mental health hold. Patient apparently contacted 911 stating he was having thoughts of killing himself. He was thinking of overdosing on medications. He states he is very depressed about his medical conditions and does not have hope for the future. He denies homicidal ideation. He is anxious, he denies other illness or injury. Review of systems: A 10 point review of systems was obtained and other than described above was negative. (Melo Pate) - Physical Exam Exam: General Appearance: Alert, nontoxic. Eyes: Pupils equal and round no pallor or injection. ENT, Mouth: Mucous membranes moist. Respiratory: There are no retractions, lungs are clear to auscultation. Cardiovascular: Regular rate and rhythm. Gastrointestinal: Abdomen is soft and nontender, no masses, bowel sounds normal. Neurological: Alert. Strength and sensation intact and symmetrical. Skin: Warm and dry, no rashes. Musculoskeletal: Neck is supple nontender. Extremities are symmetrical, full range of motion. Psychiatric: There is no agitation. (Melo Pate) Constitutional: Initial Vital Signs Temperature (C) 36.9 C 02/25/17 20:21 Heart Rate 97 02/25/17 20:21 Respiratory Rate 16 02/25/17 20:21 Blood Pressure 139/90 H 02/25/17 20:21 O2 Sat (%) 94 02/25/17 20:21 O2 Delivery Mode Room Air Allergies/Adverse Reactions: levofloxacin [From Levaquin] Allergy (Severe, Verified 02/25/17 04:28) tendinopathy lisinopril Allergy (Verified 02/25/17 04:28) Home Medications: Medication Instructions Recorded Ibuprofen [Motrin (*)] 600 mg PO DAILY PRN 06/29/16 Sertraline HCl [Zoloft 100mg (*)] 100 mg PO DAILY 06/29/16 Albuterol [Proventil Inhaler HFA 1 - 2 puffs IH Q4H PRN 01/25/17 (*)] Amlodipine Besylate [Norvasc] 10 mg PO DAILY 01/25/17 Chlorthalidone [Chlorthalidone 25 25 mg PO BID@07,19 01/25/17 mg (*)] Fluticasone Hfa 220 Mcg [Flovent 1 puffs IH BID #1 mdi 02/05/17 220 MCG Hfa MDI (*)] Tamsulosin HCl [Flomax 0.4 MG (*)] 0.4 mg PO DAILY PRN 02/12/17 Ibuprofen [Motrin (*)] 600 mg PO BID #10 tab 02/19/17 Medical Decision Making ED Course/Re-evaluation: Patient seen under the supervision of my secondary supervising physician Dr. Viktor Pinto. Patient presents to the emergency department with suicidal ideation with plan. He is on a mental health hold. Patient was medically cleared for psychiatric evaluation. After psychiatric evaluation they felt patient warranted inpatient admission. They are currently seeking placement. Care of patient will be turned over to Dr. Janny Paz at end of shift. (Melo Pate) 6:40 a.m.- The patient has been stable throughout my shift. EPS recommends placement in an inpatient facility. They are currently looking for a bed. 7:00 a.m.- Patient has been accepted at [facility]. Nurse practitioner Farida is the accepting provider. The patient will be transferred there. I have filled out the EMTALA form (Janny Paz) Differential Diagnosis: Included but not limited to anxiety, depression, bipolar, schizophrenia (Melo Pate) - Data Points Laboratory Results: Laboratory Results 02/25/17 20:05 02/25/17 20:05 02/25/17 02/25/17 02/25/17 23:54 20:10 20:05 WBC RBC Hgb Hct MCV MCH MCHC RDW Plt Count MPV Neut % (Auto) Lymph % (Auto) King % (Auto) Eos % (Auto) Baso % (Auto) Nucleat RBC Rel Count Absolute Neuts (auto) Absolute Lymphs (auto) Absolute Monos (auto) Absolute Eos (auto) Absolute Basos (auto) Absolute Nucleated RBC Immature Gran % Immature Gran # Sodium 140 mEq/L mEq/L (134-144) Potassium 4.1 mEq/L mEq/L (3.5-5.2) Chloride 107 mEq/L mEq/L (97-110) Carbon Dioxide 21 mEq/l L mEq/l (22-31) Anion Gap 12 mEq/L mEq/L (8-16) BUN 11 mg/dL mg/dL (7-23) Creatinine 0.6 mg/dL L mg/dL (0.7-1.3) Estimated GFR > 60 Glucose 100 mg/dL mg/dL (70-100) Calcium 8.9 mg/dL mg/dL (8.5-10.4) Salicylates < 1.0 mg/dL L mg/dL (2.0-20.0) Urine Opiates Screen NEGATIVE (NEGATIVE) Acetaminophen < 10 mcg/mL L mcg/mL (10.0-30.0) Urine Barbiturates NEGATIVE (NEGATIVE) Ur Phencyclidine Scrn NEGATIVE (NEGATIVE) Ur Amphetamine Screen NEGATIVE (NEGATIVE) U Benzodiazepines Scrn NON-NEGATIVE H (NEGATIVE) Urine Cocaine Screen NEGATIVE (NEGATIVE) U Marijuana (THC) Screen NON-NEGATIVE H (NEGATIVE) Ethyl Alcohol < 10 mg/dL mg/dL (0-10) 02/25/17 20:05 WBC 7.51 10^3/uL 10^3/uL (3.80-9.50) RBC 4.38 10^6/uL L 10^6/uL (4.40-6.38) Hgb 13.6 g/dL L g/dL (13.7-17.5) Hct 39.4 % L % (40.0-51.0) MCV 90.0 fL fL (81.5-99.8) MCH 31.1 pg pg (27.9-34.1) MCHC 34.5 g/dL g/dL (32.4-36.7) RDW 13.6 % % (11.5-15.2) Plt Count 326 10^3/uL 10^3/uL (150-400) MPV 9.8 fL fL (8.7-11.7) Neut % (Auto) 52.9 % % (39.3-74.2) Lymph % (Auto) 30.1 % % (15.0-45.0) King % (Auto) 13.7 % H % (4.5-13.0) Eos % (Auto) 2.1 % % (0.6-7.6) Baso % (Auto) 0.8 % % (0.3-1.7) Nucleat RBC Rel Count 0.0 % % (0.0-0.2) Absolute Neuts (auto) 3.97 10^3/uL 10^3/uL (1.70-6.50) Absolute Lymphs (auto) 2.26 10^3/uL 10^3/uL (1.00-3.00) Absolute Monos (auto) 1.03 10^3/uL H 10^3/uL (0.30-0.80) Absolute Eos (auto) 0.16 10^3/uL 10^3/uL (0.03-0.40) Absolute Basos (auto) 0.06 10^3/uL 10^3/uL (0.02-0.10) Absolute Nucleated RBC 0.00 10^3/uL 10^3/uL (0-0.01) Immature Gran % 0.4 % % (0.0-1.1) Immature Gran # 0.03 10^3/uL 10^3/uL (0.00-0.10) Sodium Potassium Chloride Carbon Dioxide Anion Gap BUN Creatinine Estimated GFR Glucose Calcium Salicylates Urine Opiates Screen Acetaminophen Urine Barbiturates Ur Phencyclidine Scrn Ur Amphetamine Screen U Benzodiazepines Scrn Urine Cocaine Screen U Marijuana (THC) Screen Ethyl Alcohol Medications Given: Discontinued Medications Lorazepam (Ativan) 1 mg PO EDNOW ONE Stop: 02/25/17 20:44 Last Admin: 02/25/17 20:49 Dose: 1 mg Lorazepam (Ativan) 1 mg PO EDNOW ONE Stop: 02/26/17 01:22 Last Admin: 02/26/17 01:27 Dose: 1 mg Departure - Departure Clinical Impression: Suicidal ideation Referrals: NONE *PRIMARY CARE P,. [Primary Care Provider] - As per Instructions
[2017-02-26] MEDS ORDERED: ONDANSETRON DISINTEGRATING 4 MG TAB ONE (07:31)
[2017-02-26] MEDS ORDERED: chlordiazePOXIDE 25 MG CAP PO ONE (07:46)
[2017-02-26 08:00] VITALS: BP 171/75; PULSE 72; TEMP 96.8; O2SAT 98
== END 2017-02-26 09:09 ==
LOC: EDUNIT#
DX: R45.851 Suicidal ideations (principal); J45.909 Unspecified asthma, uncomplicated; I10 Essential (primary) hypertension; F17.200 Nicotine dependence, unspecified, uncomplicated
CPT/HCPCS: 80305; G0480

== ENCOUNTER 2017-03-07 13:06 | Emergency (ER) | payer MEDICAID ==
[2017-03-07 13:21] VITALS: BP 145/104; PULSE 98; RESP 17; TEMP 98.1; O2SAT 94
[2017-03-07] MEDS ORDERED: ONDANSETRON DISINTEGRATING 4 MG TAB PO ONE (13:26)
--- NOTE | 2017-03-07 13:48 | EDPHY ---
ED Progress Note Narrative: 1346 hrs: I walked in to the room to greet the patient and he was walking out of the room and stated "Fuck you, I'm leaving". I have not examined the patient , he is observed ambulating with stable steady gait, clear speech pattern.
== END 2017-03-07 13:52 | disposition left against medical advice (07) ==
LOC: EDUNIT#
DX: Z53.21 Procedure and treatment not carried out due to patient leaving prior to being seen by health care provider (principal)

== ENCOUNTER 2017-03-09 14:35 | Emergency (ER) | payer MEDICAID ==
--- NOTE | 2017-03-09 15:06 | CPEKG ---
Heart Rate: 113 RR Interval: 531 P-R Interval: 136 QRSD Interval: 92 QT Interval: 348 QTC Interval: 478 P [place]: 77 QRS [place]: 81 T Wave [place]: 49 EKG Severity - BORDERLINE ECG - EKG Impression: SINUS TACHYCARDIA EKG Impression: BORDERLINE RIGHT AXIS DEVIATION EKG Impression: BORDERLINE PROLONGED QT INTERVAL Electronically Signed By: Claudia Melgar 09-Mar-2017 15:37:30
--- NOTE | 2017-03-09 15:17 | EDPHY ---
H & P Stated Complaint: etoh/epigastric/chest pain nausea/vomiting Time Seen by Provider: 03/09/17 15:03 HPI/ROS: Chief Complaint: Anxiety, chest pain, depression HPI: 61-year-old male with long history of anxiety, depression alcoholism presenting complaining of panic attack she has been going on for the last 4 hours. Patient states he has tightness in his chest and some associated shortness of breath. Has sensation that he has ice cubes in his throat. States he is feeling little bit better. Last alcohol intake was at 9 o'clock this morning. Has a history of chronic alcoholism as and cirrhosis. He has a history of anxiety and depression as well as been seen in this department for suicidal ideation multiple times in the past. He is in the care of a psychiatrist. Given his history of addiction type behavior he is not prescribed any benzodiazepines by his psychiatrist. Denies any recent fevers or chills. No cough. Some mild shortness of breath which is typical for his panic attacks. There are no triggers that he is aware of. ROS: 10 point Review of Systems is negative except as noted in the HPI. Social History: Positive for smoking, positive alcohol, occasional marijuana Family History: non-contributory Physical Exam: Gen: Awake, Alert, tearful, no distress HEENT: Nose: no rhinorrhea Eyes: PERRLA, EOMI Mouth: Moist mucosa Neck: Supple, no JVD Chest: nontender, lungs clear to auscultation Heart: S1, S2 normal, no murmur Abd: Soft, non-tender, no guarding Back: no CVA tenderness, no midline tenderness Ext: no edema, non-tender Skin: no rash Neuro: CN II-XII intact, Sensation grossly intact, Strength 5/5 in bilateral upper and lower extremities - Personal History Current Tetanus/Diphtheria Vaccine: Yes Tetanus Vaccine Date: < 10 YEARS - Medical/Surgical History Hx Asthma: Yes Hx Chronic Respiratory Disease: No Hx Diabetes: No Hx Cardiac Disease: Yes Hx Renal Disease: No Hx Cirrhosis: Yes Hx Alcoholism: Yes Hx HIV/AIDS: No Hx Splenectomy or Spleen Trauma: No Other PMH: MEDICAL- ANXIETY, LIVER DISEASE, ASCITES, IVDA, HEP C+, alcohol and drug abuse/MENTAL HEALTH, htn,cirrohsis, hx of 3 ruptured discs/back surgs/ tonsillectomy, - Social History Smoking Status: Heavy smoker Constitutional: Initial Vital Signs Temperature (C) 36.8 C 03/09/17 14:39 Heart Rate 102 H 03/09/17 14:39 Respiratory Rate 22 H 03/09/17 14:39 Blood Pressure 115/97 H 03/09/17 14:39 O2 Sat (%) 92 03/09/17 14:39 O2 Delivery Mode Room Air Allergies/Adverse Reactions: levofloxacin [From Levaquin] Allergy (Severe, Verified 03/09/17 14:38) tendinopathy lisinopril Allergy (Verified 03/09/17 14:38) Home Medications: Medication Instructions Recorded Ibuprofen [Motrin (*)] 600 mg PO DAILY PRN 06/29/16 Sertraline HCl [Zoloft 100mg (*)] 100 mg PO DAILY 06/29/16 Albuterol [Proventil Inhaler HFA 1 - 2 puffs IH Q4H PRN 01/25/17 (*)] Amlodipine Besylate [Norvasc] 10 mg PO DAILY 01/25/17 Chlorthalidone [Chlorthalidone 25 25 mg PO BID@,19 01/25/17 mg (*)] Fluticasone Hfa 220 Mcg [Flovent 1 puffs IH BID #1 mdi 02/05/17 220 MCG Hfa MDI (*)] Tamsulosin HCl [Flomax 0.4 MG (*)] 0.4 mg PO DAILY PRN 02/12/17 Ibuprofen [Motrin (*)] 600 mg PO BID #10 tab 02/19/17 Medical Decision Making - Diagnostics EKG Interpretation: ECG time 3:04 p.m., sinus tachycardia with a rate of 113, borderline axis deviation, no acute ST or T-wave changes. Procedures: Procedure: Ultrasound guidance for IV placement. Indication: The nurse requested that I place an intravenous catheter because of technical difficulties with this procedure on this patient. Procedure in details: Using the linear probe covered in a sterile sheath, a short axis of the basilic vein was obtained. This vein was completely compressible and was identified as separate from the adjacent noncompressible arterial structure. Under real-time guidance, the intravenous needle was observed to tent the vein and then to puncture it. Insertion of intravenous catheter: I prepped the patient's skin with chlorhexidine. I placed an 18 gauge intravenous catheter in the visualized vein. ED Course/Re-evaluation: Ativan 1 mg ordered a 1 time dose for his agitation. IV placed in his right proximal arm under ultrasound guidance by me. Bloods have been sent. Patient is anxious but is not meeting criteria for mental health hold at this time. He has multiple presentations for similar symptoms in the past. 1630 patient is no longer in his room. He has left the department against medical advice. IV was removed by staff when he was running relief. I did not have a chance to re-evaluate the patient. On his initial presentation he did not had meet any criteria for a mental health hold. - Data Points Laboratory Results: Laboratory Results 03/09/17 15:31 03/09/17 15:31 03/09/17 03/09/17 15:31 15:31 WBC 6.79 10^3/uL 10^3/uL (3.80-9.50) RBC 4.66 10^6/uL 10^6/uL (4.40-6.38) Hgb 14.4 g/dL g/dL (13.7-17.5) Hct 42.2 % % (40.0-51.0) MCV 90.6 fL fL (81.5-99.8) MCH 30.9 pg pg (27.9-34.1) MCHC 34.1 g/dL g/dL (32.4-36.7) RDW 13.7 % % (11.5-15.2) Plt Count 250 10^3/uL 10^3/uL (150-400) MPV 9.5 fL fL (8.7-11.7) Neut % (Auto) 61.8 % % (39.3-74.2) Lymph % (Auto) 21.9 % % (15.0-45.0) [place] % (Auto) 14.3 % H % (4.5-13.0) Eos % (Auto) 1.0 % % (0.6-7.6) Baso % (Auto) 0.7 % % (0.3-1.7) Nucleat RBC Rel Count 0.0 % % (0.0-0.2) Absolute Neuts (auto) 4.19 10^3/uL 10^3/uL (1.70-6.50) Absolute Lymphs (auto) 1.49 10^3/uL 10^3/uL (1.00-3.00) Absolute Monos (auto) 0.97 10^3/uL H 10^3/uL (0.30-0.80) Absolute Eos (auto) 0.07 10^3/uL 10^3/uL (0.03-0.40) Absolute Basos (auto) 0.05 10^3/uL 10^3/uL (0.02-0.10) Absolute Nucleated RBC 0.00 10^3/uL 10^3/uL (0-0.01) Immature Gran % 0.3 % % (0.0-1.1) Immature Gran # 0.02 10^3/uL 10^3/uL (0.00-0.10) Sodium 143 mEq/L mEq/L (134-144) Potassium 3.9 mEq/L mEq/L (3.5-5.2) Chloride 106 mEq/L mEq/L (97-110) Carbon Dioxide 22 mEq/l mEq/l (22-31) Anion Gap 15 mEq/L mEq/L (8-16) BUN 6 mg/dL L mg/dL (7-23) Creatinine 0.9 mg/dL mg/dL (0.7-1.3) Estimated GFR > 60 Glucose 118 mg/dL H mg/dL (70-100) Calcium 8.7 mg/dL mg/dL (8.5-10.4) Troponin I < 0.012 ng/mL ng/mL (0-0.034) Ethyl Alcohol 161 mg/dL H mg/dL (0-10) Medications Given: Discontinued Medications Lorazepam (Ativan Injection) 1 mg IVP EDNOW ONE Stop: 03/09/17 15:32 Last Admin: 03/09/17 15:45 Dose: 1 mg Departure - Departure Disposition: Against Medical Advice Clinical Impression: Anxiety Condition: Good Referrals: NONE *PRIMARY CARE P,. [Primary Care Provider] - As per Instructions
[2017-03-09] MEDS ORDERED: LORazepam 2 MG/ML INJ IVP ONE (15:31)
[2017-03-09 15:40] LABS: % IMMATURE GRANULYOCYTES 0.3 % (0.0-1.1); ABSOLUTE IMMATURE GRANULOCYTES 0.02 10^3/uL (0.00-0.10); ADD DIFF? NO; ADD MORPH? NO; ADD SCAN? NO; ATYPICAL LYMPHOCYTE FLAG 0 (0-99); FRAGMENT RBC FLAG 0 (0-99); HEMATOCRIT 42.2 % (40.0-51.0); HEMOGLOBIN 14.4 g/dL (13.7-17.5); LEFT SHIFT FLG 0 (0-99); LIPEMIA HEMOLYSIS FLAG 90 (0-99); MEAN CELL HEMOGLOBIN 30.9 pg (27.9-34.1); MEAN CELL HEMOGLOBIN CONCENTR. 34.1 g/dL (32.4-36.7); MEAN CELL VOLUME 90.6 fL (81.5-99.8); MEAN PLATELET VOLUME 9.5 fL (8.7-11.7); PLATELET CLUMPS FLAG 10 (0-99); PLATELET COUNT 250 10^3/uL (150-400); RED BLOOD CELL COUNT 4.66 10^6/uL (4.40-6.38); RED CELL DISTRIBUTION WIDTH 13.7 % (11.5-15.2)
[2017-03-09 15:54] LABS: ANION GAP 15 mEq/L (8-16); CALCIUM 8.7 mg/dL (8.5-10.4); CARBON DIOXIDE 22 mEq/l (22-31); CHLORIDE 106 mEq/L (97-110); CREATININE 0.9 mg/dL (0.7-1.3); ETHANOL SERUM 161 mg/dL (0-10); GLOMERULAR FILTRATION RATE > 60; GLUCOSE 118 mg/dL (70-100); POTASSIUM 3.9 mEq/L (3.5-5.2); SODIUM 143 mEq/L (134-144)
[2017-03-09 16:05] LABS: TROPONIN I < 0.012 ng/mL (0-0.034)
[2017-03-09 16:30] VITALS: BP 120/78; PULSE 87; RESP 14; TEMP 98.4; O2SAT 94
== END 2017-03-09 16:29 | disposition left against medical advice (07) ==
DX: F41.9 Anxiety disorder, unspecified (principal); F17.200 Nicotine dependence, unspecified, uncomplicated; J45.909 Unspecified asthma, uncomplicated
CPT/HCPCS: 96374; G0480; J2060

== ENCOUNTER 2017-03-10 01:06 | Emergency (ER) | payer MEDICAID ==
[2017-03-10 01:16] VITALS: BP 155/102; PULSE 97; RESP 20; TEMP 97.9; O2SAT 95
[2017-03-10] MEDS ORDERED: CHLORDIAZEPOXIDE 25MG PREPK#6 BTL TAKEHOME ONE (01:20)
--- NOTE | 2017-03-10 01:20 | EDPHY ---
H & P Stated Complaint: shakey etoh withdrawl Time Seen by Provider: 03/10/17 01:09 HPI/ROS: HPI The patient presents brought in by ambulance with concern for alcohol withdrawal. He last drink alcohol at 9:00 a.m. this morning and is feeling tremulous and shaky. He has been feeling this way for the last several hours, is getting progressively worse and is moderate in severity. He said he is generally cut down his drinking after a 10 month relapsed. He now is drinking about 1/4 of what he usually drink. [facility]. REVIEW OF SYSTEMS Constitutional: No fever, no chills. Eyes: No discharge. ENT: No sore throat. Cardiovascular: No chest pain, no palpitations. Respiratory: No cough, no shortness of breath. Gastrointestinal: No abdominal pain, no vomiting. Genitourinary: No hematuria. Musculoskeletal: No back pain. Skin: No rashes. Neurological: No headache. PMHx: Anxiety, hepatitis-C, lower back pain, frequent ER visits, last earlier this morning Soc Hx: Lives at home alone, positive for alcohol use PHYSICAL General Appearance: Alert, no distress Eyes: Pupils equal and round no pallor or injection ENT, Mouth: Mucous membranes moist Respiratory: There are no retractions, lungs are clear to auscultation Cardiovascular: Regular rate and rhythm Gastrointestinal: Abdomen is soft and non-tender, no masses, bowel sounds normal Neurological: A&O, moves all extremities Skin: Warm and dry, no rashes Musculoskeletal: Neck is supple non tender Extremities: symmetrical, full range of motion Psychiatric: Patient is oriented X 3, there is no agitation Source: Patient, EMS - Personal History Current Tetanus/Diphtheria Vaccine: Yes Current Tetanus Diphtheria and Acellular Pertussis (TDAP): Yes Tetanus Vaccine Date: < 10 YEARS - Medical/Surgical History Hx Asthma: Yes Hx Chronic Respiratory Disease: No Hx Diabetes: No Hx Cardiac Disease: Yes Hx Renal Disease: No Hx Cirrhosis: Yes Hx Alcoholism: Yes Hx HIV/AIDS: No Hx Splenectomy or Spleen Trauma: No Other PMH: MEDICAL- ANXIETY, LIVER DISEASE, ASCITES, IVDA, HEP C+, alcohol and drug abuse/MENTAL HEALTH, htn,cirrohsis, hx of 3 ruptured discs/back surgs/ tonsillectomy, - Social History Smoking Status: Heavy smoker Constitutional: Initial Vital Signs Temperature (C) 36.6 C 03/10/17 01:10 Heart Rate 97 03/10/17 01:10 Respiratory Rate 20 03/10/17 01:10 Blood Pressure 155/102 H 03/10/17 01:10 O2 Sat (%) 95 03/10/17 01:10 O2 Delivery Mode Room Air Allergies/Adverse Reactions: levofloxacin [From Levaquin] Allergy (Severe, Verified 03/09/17 14:38) tendinopathy lisinopril Allergy (Verified 03/09/17 14:38) Home Medications: Medication Instructions Recorded Ibuprofen [Motrin (*)] 600 mg PO DAILY PRN 06/29/16 Sertraline HCl [Zoloft 100mg (*)] 100 mg PO DAILY 06/29/16 Albuterol [Proventil Inhaler HFA 1 - 2 puffs IH Q4H PRN 01/25/17 (*)] Amlodipine Besylate [Norvasc] 10 mg PO DAILY 01/25/17 Chlorthalidone [Chlorthalidone 25 25 mg PO BID@07,19 01/25/17 mg (*)] Fluticasone Hfa 220 Mcg [Flovent 1 puffs IH BID #1 mdi 02/05/17 220 MCG Hfa MDI (*)] Tamsulosin HCl [Flomax 0.4 MG (*)] 0.4 mg PO DAILY PRN 02/12/17 Ibuprofen [Motrin (*)] 600 mg PO BID #10 tab 02/19/17 Medical Decision Making Differential Diagnosis: This is a 61-year-old man with multiple medical problems including anxiety and alcohol use who presents brought in by ambulance from home where he has had increasing symptoms of alcohol withdrawal, feeling tremulous and shaky. On exam , he does have a mild hand tremor. His vital signs are normal. Differential diagnosis includes alcohol withdrawal, benzodiazepine withdrawal, anxiety attack. The patient like to [facility] and I feel this is a good idea to help manage his detoxification from alcohol. We will transfer him there and a cab. - Data Points Medications Given: Discontinued Medications Chlordiazepoxide (Librium 25 Mg Prepack#6) 1 btl TAKEHOME EDNOW ONE Stop: 03/10/17 01:21 Last Admin: 03/10/17 01:32 Dose: 1 btl Chlordiazepoxide HCl (Librium) 50 mg PO EDNOW ONE Stop: 03/10/17 01:32 Last Admin: 03/10/17 01:32 Dose: 50 mg Departure - Departure Disposition: Home, Routine, Self-Care Clinical Impression: Alcoholism, Alcohol withdrawal Condition: Good Instructions: Chlordiazepoxide (By mouth), Alcohol Withdrawal (ED) Referrals: [facility] [Outside] - As per Instructions
[2017-03-10] MEDS ORDERED: chlordiazePOXIDE 25 MG CAP ONE (01:29)
[2017-03-10] MEDS ORDERED: chlordiazePOXIDE 25 MG CAP PO ONE (01:31)
== END 2017-03-10 02:00 | disposition home or self-care (01) ==
LOC: EDUNIT#
DX: F10.239 Alcohol dependence with withdrawal, unspecified (principal); J45.909 Unspecified asthma, uncomplicated; F17.200 Nicotine dependence, unspecified, uncomplicated

== ENCOUNTER 2017-03-23 20:56 | Emergency (ER) | payer MEDICAID ==
--- NOTE | 2017-03-23 20:58 | EDPHY ---
H & P HPI/ROS: HPI CHIEF COMPLAINT: "I am anxious" HISTORY OF PRESENT ILLNESS: This patient is 61-year-old male, significant past medical history for schizoaffective disorder, hypertension, nausea vomiting diarrhea, opiate dependency, alcohol use, COPD, smokes tobacco, presents emergency room by EMS for acute anxiety. States he felt very anxious today. The study was having a anxiety/panic attack. He felt short of breath. Hyperventilating. He had associated nausea vomiting. No chest pain. He does tell me he had multiple alcoholic beverages this evening. Upon arrival here in emergency room is requesting IV Ativan. Does appear anxious. Hyperventilating. Past Medical History: Acute anxiety, COPD, hypertension, schizoaffective, 1 daily alcohol use, opiate dependency Past Surgical History: Denies recent surgery Social History: Daily alcohol, daily tobacco, denies other illicit drugs Family History: Noncontributory ROS REVIEW OF SYSTEMS: A comprehensive 10 point review of systems is otherwise negative aside from elements mentioned in the history of present illness. Exam Constitutional anxious, triage nursing summary reviewed, vital signs reviewed, awake/alert. Eyes normal conjunctivae and sclera, EOMI, PERRLA. HENT normal inspection, atraumatic, moist mucus membranes, no epistaxis, neck supple/ no meningismus, no raccoon eyes. Respiratory hyperventilating, normal breath sounds, no respiratory distress, no wheezing. Cardiovascular rate normal, regular rhythm, no murmur, no edema, distal pulses normal. Gastrointestinal soft, non-tender, no rebound, no guarding, normal bowel sounds, no distension, no pulsatile mass. Genitourinary no CVA tenderness. Musculoskeletal no midline vertebral tenderness, full range of motion, no calf swelling, no tenderness of extremities, no meningismus, good pulses, neurovascularly intact. Skin pink, warm, & dry, no rash, skin atraumatic. Neurologic awake, alert and oriented x 3, AAOx3, moves all 4 extremities equally, motor intact, sensory intact, CN II-XII intact, normal cerebellar, normal vision, normal speech. Psychiatric anxious Heme/Lymph/Immune no lymphadenopathy. 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 Re-evaluation: 2310: Re-evaluation at this time patient feels much better after IV Ativan 1 mg. Resting comfortably. Tells me anxiety is greatly improved. He denies chest pain, shortness of breath. Nausea vomiting headache focal weakness numbness or tingling. I do recommend refer stays well hydrated, refrain from drinking alcohol. Return emergency room if there is any worsening symptoms questions or concerns. Source: Patient, EMS - Personal History Tetanus Vaccine Date: < 10 YEARS - Medical/Surgical History Hx Asthma: Yes Hx Chronic Respiratory Disease: No Hx Diabetes: No Hx Cardiac Disease: Yes Hx Renal Disease: No Hx Cirrhosis: Yes Hx Alcoholism: Yes Hx HIV/AIDS: No Hx Splenectomy or Spleen Trauma: No Other PMH: MEDICAL- ANXIETY, LIVER DISEASE, ASCITES, IVDA, HEP C+, alcohol and drug abuse/MENTAL HEALTH, htn,cirrohsis, hx of 3 ruptured discs/back surgs/ tonsillectomy, - Social History Smoking Status: Heavy smoker Constitutional: Initial Vital Signs Temperature (C) 37.2 C 03/23/17 21:05 Heart Rate 128 H 03/23/17 21:05 Respiratory Rate 24 H 03/23/17 21:05 Blood Pressure 114/96 H 03/23/17 21:05 O2 Sat (%) 95 03/23/17 21:05 O2 Delivery Mode Room Air Allergies/Adverse Reactions: levofloxacin [From Levaquin] Allergy (Severe, Verified 03/23/17 21:05) tendinopathy lisinopril Allergy (Verified 03/23/17 21:05) Home Medications: Medication Instructions Recorded Ibuprofen [Motrin (*)] 600 mg PO DAILY PRN 06/29/16 Sertraline HCl [Zoloft 100mg (*)] 100 mg PO DAILY 06/29/16 Albuterol [Proventil Inhaler HFA 1 - 2 puffs IH Q4H PRN 01/25/17 (*)] Amlodipine Besylate [Norvasc] 10 mg PO DAILY 01/25/17 Chlorthalidone [Chlorthalidone 25 25 mg PO BID@07,19 01/25/17 mg (*)] Fluticasone Hfa 220 Mcg [Flovent 1 puffs IH BID #1 mdi 02/05/17 220 MCG Hfa MDI (*)] Tamsulosin HCl [Flomax 0.4 MG (*)] 0.4 mg PO DAILY PRN 02/12/17 Ibuprofen [Motrin (*)] 600 mg PO BID #10 tab 02/19/17 Medical Decision Making - Diagnostics Imaging Results: Imaging Impressions Chest X-Ray 03/23/17 21:02 Impression: 1. No evidence for recurrent pneumonia. 2. Persistent "mass" in the medial left costophrenic gutter. This could potentially represent loculated pleural fluid. If clinically indicated, evaluation with chest CT with contrast might be useful. - Data Points Laboratory Results: Laboratory Results 03/23/17 22:00 03/23/17 22:00 03/23/17 03/23/17 22:00 22:00 WBC 10.08 10^3/uL H 10^3/uL (3.80-9.50) RBC 5.51 10^6/uL 10^6/uL (4.40-6.38) Hgb 17.2 g/dL g/dL (13.7-17.5) Hct 49.1 % % (40.0-51.0) MCV 89.1 fL fL (81.5-99.8) MCH 31.2 pg pg (27.9-34.1) MCHC 35.0 g/dL g/dL (32.4-36.7) RDW 14.1 % % (11.5-15.2) Plt Count 438 10^3/uL H 10^3/uL (150-400) MPV 9.8 fL fL (8.7-11.7) Neut % (Auto) 59.9 % % (39.3-74.2) Lymph % (Auto) 23.9 % % (15.0-45.0) Cook % (Auto) 14.4 % H % (4.5-13.0) Eos % (Auto) 0.4 % L % (0.6-7.6) Baso % (Auto) 0.9 % % (0.3-1.7) Nucleat RBC Rel Count 0.0 % % (0.0-0.2) Absolute Neuts (auto) 6.04 10^3/uL 10^3/uL (1.70-6.50) Absolute Lymphs (auto) 2.41 10^3/uL 10^3/uL (1.00-3.00) Absolute Monos (auto) 1.45 10^3/uL H 10^3/uL (0.30-0.80) Absolute Eos (auto) 0.04 10^3/uL 10^3/uL (0.03-0.40) Absolute Basos (auto) 0.09 10^3/uL 10^3/uL (0.02-0.10) Absolute Nucleated RBC 0.00 10^3/uL 10^3/uL (0-0.01) Immature Gran % 0.5 % % (0.0-1.1) Immature Gran # 0.05 10^3/uL 10^3/uL (0.00-0.10) Sodium 136 mEq/L mEq/L (134-144) Potassium 3.6 mEq/L mEq/L (3.5-5.2) Chloride 99 mEq/L mEq/L (97-110) Carbon Dioxide 19 mEq/l L mEq/l (22-31) Anion Gap 18 mEq/L H mEq/L (8-16) BUN 15 mg/dL mg/dL (7-23) Creatinine 0.8 mg/dL mg/dL (0.7-1.3) Estimated GFR > 60 Glucose 120 mg/dL H mg/dL (70-100) Calcium 10.7 mg/dL H mg/dL (8.5-10.4) Phosphorus 3.3 mg/dL mg/dL (2.5-4.5) Total Bilirubin 0.7 mg/dL mg/dL (0.1-1.4) Conjugated Bilirubin 0.5 mg/dL mg/dL (0.0-0.5) Unconjugated Bilirubin 0.2 mg/dL mg/dL (0.0-1.1) AST 29 IU/L IU/L (17-59) ALT 36 IU/L IU/L (21-72) Alkaline Phosphatase 83 IU/L IU/L (38-126) Total Protein 8.1 g/dL g/dL (6.3-8.2) Albumin 5.0 g/dL g/dL (3.5-5.0) Lipase 199.0 IU/L IU/L (23-300) Ethyl Alcohol < 10 mg/dL mg/dL (0-10) Medications Given: Discontinued Medications Sodium Chloride (Ns) 1,000 mls @ 0 mls/hr IV ONCE ONE; Wide Open PRN Reason: Protocol Stop: 03/23/17 21:02 Last Admin: 03/23/17 22:09 Dose: 1,000 mls Lorazepam (Ativan Injection) 1 mg IVP EDNOW ONE Stop: 03/23/17 21:05 Last Admin: 03/23/17 22:09 Dose: 1 mg Ondansetron HCl (Zofran) 4 mg IVP EDNOW ONE Stop: 03/23/17 21:02 Last Admin: 03/23/17 22:09 Dose: 4 mg Departure - Departure Disposition: Home, Routine, Self-Care Clinical Impression: Anxiety Condition: Good Instructions: Anxiety (ED) Referrals: Patient,NotPresent [Unknown] - As per Instructions
[2017-03-23] MEDS ORDERED: ONDANSETRON 4 MG/2 ML VIAL IVP ONE (21:01)
[2017-03-23] MEDS ORDERED: NS 1,000 ML IV ONE (21:01)
[2017-03-23] MEDS ORDERED: LORazepam 2 MG/ML INJ IVP ONE ×2 (21:04→23:24)
[2017-03-23 22:27] LABS: % IMMATURE GRANULYOCYTES 0.5 % (0.0-1.1); ABSOLUTE IMMATURE GRANULOCYTES 0.05 10^3/uL (0.00-0.10); ADD DIFF? NO; ADD MORPH? NO; ADD SCAN? NO; ATYPICAL LYMPHOCYTE FLAG 0 (0-99); FRAGMENT RBC FLAG 0 (0-99); HEMATOCRIT 49.1 % (40.0-51.0); HEMOGLOBIN 17.2 g/dL (13.7-17.5); LEFT SHIFT FLG 0 (0-99); LIPEMIA HEMOLYSIS FLAG 90 (0-99); MEAN CELL HEMOGLOBIN 31.2 pg (27.9-34.1); MEAN CELL VOLUME 89.1 fL (81.5-99.8); MEAN PLATELET VOLUME 9.8 fL (8.7-11.7); PLATELET CLUMPS FLAG 10 (0-99); PLATELET COUNT 438 10^3/uL (150-400); RED BLOOD CELL COUNT 5.51 10^6/uL (4.40-6.38); RED CELL DISTRIBUTION WIDTH 14.1 % (11.5-15.2)
[2017-03-23 22:29] LABS: ALANINE AMINOTRANSFERASE 36 IU/L (21-72); ALKALINE PHOSPHATASE 83 IU/L (38-126); ANION GAP 18 mEq/L (8-16); ASPARTATE AMINOTRANSFERASE 29 IU/L (17-59); BILIRUBIN,TOTAL 0.7 mg/dL (0.1-1.4); BILIRUBIN-CONJUGATED 0.5 mg/dL (0.0-0.5); BILIRUBIN-UNCONJUGATED 0.2 mg/dL (0.0-1.1); CALCIUM 10.7 mg/dL (8.5-10.4); CARBON DIOXIDE 19 mEq/l (22-31); CHLORIDE 99 mEq/L (97-110); CREATININE 0.8 mg/dL (0.7-1.3); ETHANOL SERUM < 10 mg/dL (0-10); GLOMERULAR FILTRATION RATE > 60; GLUCOSE 120 mg/dL (70-100); POTASSIUM 3.6 mEq/L (3.5-5.2); SODIUM 136 mEq/L (134-144); TOTAL PROTEIN 8.1 g/dL (6.3-8.2)
[2017-03-23 23:35] VITALS: BP 135/102; RESP 20; O2SAT 89
[2017-03-24 00:33] VITALS: PULSE 104; TEMP 97.7
== END 2017-03-24 00:20 | disposition home or self-care (01) ==
LOC: EDUNIT#
DX: F41.9 Anxiety disorder, unspecified (principal); J44.9 Chronic obstructive pulmonary disease, unspecified; I10 Essential (primary) hypertension; F17.200 Nicotine dependence, unspecified, uncomplicated
CPT/HCPCS: 96374; G0480; J2060; J2405

== ENCOUNTER 2017-03-28 18:30 | Emergency (ER) | payer MEDICAID ==
--- NOTE | 2017-03-28 18:30 | EDPHY ---
H & P Constitutional: Initial Vital Signs Temperature (C) 36.6 C 03/28/17 18:38 Heart Rate 116 H 03/28/17 18:38 Respiratory Rate 16 03/28/17 18:38 Blood Pressure 129/84 H 03/28/17 18:38 O2 Sat (%) 94 03/28/17 18:38 O2 Delivery Mode Room Air Allergies/Adverse Reactions: levofloxacin [From Levaquin] Allergy (Severe, Verified 03/23/17 21:05) tendinopathy lisinopril Allergy (Verified 03/23/17 21:05) Home Medications: Medication Instructions Recorded Ibuprofen [Motrin (*)] 600 mg PO DAILY PRN 06/29/16 Sertraline HCl [Zoloft 100mg (*)] 100 mg PO DAILY 06/29/16 Albuterol [Proventil Inhaler HFA 1 - 2 puffs IH Q4H PRN 01/25/17 (*)] Amlodipine Besylate [Norvasc] 10 mg PO DAILY 01/25/17 Chlorthalidone [Chlorthalidone 25 25 mg PO BID@,01/25/17 mg (*)] Fluticasone Hfa 220 Mcg [Flovent 1 puffs IH BID #1 mdi 02/05/17 220 MCG Hfa MDI (*)] Tamsulosin HCl [Flomax 0.4 MG (*)] 0.4 mg PO DAILY PRN 02/12/17 Ibuprofen [Motrin (*)] 600 mg PO BID #10 tab 02/19/17 Medical Decision Making - Diagnostics Imaging: Discussed imaging studies w/ call taker Radiologist, I viewed and interpreted images myself ED Course/Re-evaluation: CHIEF COMPLAINT: Anxiety, vomiting HISTORY OF PRESENT ILLNESS: The patient is a 62 y/o male arriving via EMS stating, "I've been having continuous panic attacks." He has a history of chronic pain, schizoaffective disorder, anxiety, and cirrhosis and thinks he may have ascites. He states his abdomen started enlarging 4 months ago. He says his neighbor told him to come into the ED because of vomiting this afternoon. He also complains of significant anxiety and dyspnea that worsens when he lies down. This is his 25th visit to this ED in the last year for similar complaints. He was last evaluated on 03/23/17 for anxiety. His symptoms today are similar to his recent visits. REVIEW OF SYSTEMS: A 10 point review of systems was performed and is negative with the exception of the elements mentioned in the history of present illness. PHYSICAL EXAM: HR, BP, O2 Sat, RR. Temp noted General Appearance: Alert, well hydrated, appropriate, and cachectic. Head: Atraumatic without scalp tenderness or obvious injury Eyes: Pupils equal, round, reactive to light and accommodation, EOMI, no trauma , no injection. Nose: Atraumatic, no rhinorrhea, clear. Throat: Mucus membranes moist. Neck: Supple, nontender, no lymphadenopathy. Respiratory: No retractions, no distress, no wheezes, and no accessory muscle use. Lungs are clear to auscultation bilaterally. Cardiovascular: Tachycardic regular rate and rhythm, no murmurs, rubs, or gallops. Good capillary refill all extremities. Gastrointestinal: Abdomen is soft, tender, distended with fluid wave, no masses , no rebound, no guarding, no peritoneal signs. Musculoskeletal: Normal active ROM of all extremities, atraumatic. Neurological: Alert, appropriate, and interactive. Nonfocal neuro exam. Skin: No rashes, good turgor, no nodules on palpation. Past medical history: Schizoaffective bipolar type, anxiety, cirrhosis, chronic pain, hypertension, alcohol abuse, COPD Past surgical history: nothing recent Family history: noncontributory Social history: daily alcohol and tobacco use DIAGNOSTICS/PROCEDURES/CRITICAL CARE TIME: The 12 lead EKG was interpreted by myself. Sinus tachycardia rate 116 with no ischemic changes. See hard copy and/or "tracemaster" electronic copy for interpretation. Chest x-ray: nothing acute Abdominal CT: nothing acute DIFFERENTIAL DIAGNOSIS: The differential diagnosis for the patient's nausea and vomiting included but was not limited to ascites, gastroenteritis, gastritis , appendicitis, and medication side effect. MEDICAL DECISION MAKING: This is a chronically-ill 62 y/o male well-known to this department who presents with anxiety, vomiting, distended abdomen, and dyspnea while lying flat. He has a positive fluid wave and diffuse abdominal tenderness on exam. Plan for IV, labs, chest x-ray, abdominal CT, and EKG. EKG shows sinus tachycardia. Labs unremarkable. Imaging shows nothing acute. Patient will be discharged home with gastritis and referral to PCP for follow up. Return precautions given. - Data Points Laboratory Results: Laboratory Results 03/28/17 19:35 03/28/17 19:35 03/28/17 03/28/17 19:35 19:35 WBC 7.26 10^3/uL 10^3/uL (3.80-9.50) RBC 5.21 10^6/uL 10^6/uL (4.40-6.38) Hgb 16.2 g/dL g/dL (13.7-17.5) Hct 46.7 % % (40.0-51.0) MCV 89.6 fL fL (81.5-99.8) MCH 31.1 pg pg (27.9-34.1) MCHC 34.7 g/dL g/dL (32.4-36.7) RDW 14.2 % % (11.5-15.2) Plt Count 388 10^3/uL 10^3/uL (150-400) MPV 9.6 fL fL (8.7-11.7) Neut % (Auto) 48.1 % % (39.3-74.2) Lymph % (Auto) 33.2 % % (15.0-45.0) [place] % (Auto) 15.3 % H % (4.5-13.0) Eos % (Auto) 1.8 % % (0.6-7.6) Baso % (Auto) 1.0 % % (0.3-1.7) Nucleat RBC Rel Count 0.0 % % (0.0-0.2) Absolute Neuts (auto) 3.50 10^3/uL 10^3/uL (1.70-6.50) Absolute Lymphs (auto) 2.41 10^3/uL 10^3/uL (1.00-3.00) Absolute Monos (auto) 1.11 10^3/uL H 10^3/uL (0.30-0.80) Absolute Eos (auto) 0.13 10^3/uL 10^3/uL (0.03-0.40) Absolute Basos (auto) 0.07 10^3/uL 10^3/uL (0.02-0.10) Absolute Nucleated RBC 0.00 10^3/uL 10^3/uL (0-0.01) Immature Gran % 0.6 % % (0.0-1.1) Immature Gran # 0.04 10^3/uL 10^3/uL (0.00-0.10) Sodium 136 mEq/L mEq/L (134-144) Potassium 3.5 mEq/L mEq/L (3.5-5.2) Chloride 99 mEq/L mEq/L (97-110) Carbon Dioxide 21 mEq/l L mEq/l (22-31) Anion Gap 16 mEq/L mEq/L (8-16) BUN 7 mg/dL mg/dL (7-23) Creatinine 0.7 mg/dL mg/dL (0.7-1.3) Estimated GFR > 60 Glucose 125 mg/dL H mg/dL (70-100) Calcium 10.0 mg/dL mg/dL (8.5-10.4) Total Bilirubin 0.8 mg/dL mg/dL (0.1-1.4) Conjugated Bilirubin 0.6 mg/dL H mg/dL (0.0-0.5) Unconjugated Bilirubin 0.2 mg/dL mg/dL (0.0-1.1) AST 36 IU/L IU/L (17-59) ALT 39 IU/L IU/L (21-72) Alkaline Phosphatase 63 IU/L IU/L (38-126) Troponin I < 0.012 ng/mL ng/mL (0-0.034) NT-Pro-B Natriuret Pep 89 pg/mL pg/mL (0-125) Total Protein 7.7 g/dL g/dL (6.3-8.2) Albumin 4.7 g/dL g/dL (3.5-5.0) Lipase 248.0 IU/L IU/L (23-300) Departure - Departure Disposition: Home, Routine, Self-Care Clinical Impression: Anxiety Gastritis Qualifiers: Gastritis type: alcoholic Chronicity: acute Gastritis bleeding: without bleeding Qualified Code(s): K29.20 - Alcoholic gastritis without bleeding Condition: Good Instructions: Gastritis (ED), Anxiety (ED) Additional Instructions: Follow up with your primary care provider for continued symptoms. Decrease alcohol use. Referrals: NONE *PRIMARY CARE P,. [Primary Care Provider] - As per Instructions [facility],. [Clinic] - As per Instructions Report Scribed for: Jacob A Genoveva Report Scribed by: Tari Meade Date of Report: 03/28/17 Time of Report: 18:41
[2017-03-28 18:40] VITALS: TEMP 97.9
--- NOTE | 2017-03-28 18:47 | CPEKG ---
Heart Rate: 116 RR Interval: 517 P-R Interval: 156 QRSD Interval: 90 QT Interval: 328 QTC Interval: 456 P Bryan: 65 QRS Bryan: 83 T Wave Bryan: 50 EKG Severity - OTHERWISE NORMAL ECG - EKG Impression: SINUS TACHYCARDIA EKG Impression: BORDERLINE RIGHT AXIS DEVIATION Electronically Signed By: Jacob Tomas 28-Mar-2017 20:46:08
[2017-03-28] MEDS ORDERED: IOPAMIDOL (ISOVUE-300) 100 ML BTL ONE (19:37)
[2017-03-28 19:42] LABS: % IMMATURE GRANULYOCYTES 0.6 % (0.0-1.1); ABSOLUTE IMMATURE GRANULOCYTES 0.04 10^3/uL (0.00-0.10); ADD DIFF? NO; ADD MORPH? NO; ADD SCAN? NO; ATYPICAL LYMPHOCYTE FLAG 0 (0-99); FRAGMENT RBC FLAG 0 (0-99); HEMATOCRIT 46.7 % (40.0-51.0); HEMOGLOBIN 16.2 g/dL (13.7-17.5); LEFT SHIFT FLG 0 (0-99); LIPEMIA HEMOLYSIS FLAG 90 (0-99); MEAN CELL HEMOGLOBIN 31.1 pg (27.9-34.1); MEAN CELL HEMOGLOBIN CONCENTR. 34.7 g/dL (32.4-36.7); MEAN CELL VOLUME 89.6 fL (81.5-99.8); MEAN PLATELET VOLUME 9.6 fL (8.7-11.7); PLATELET CLUMPS FLAG 0 (0-99); PLATELET COUNT 388 10^3/uL (150-400); RED BLOOD CELL COUNT 5.21 10^6/uL (4.40-6.38); RED CELL DISTRIBUTION WIDTH 14.2 % (11.5-15.2)
[2017-03-28 19:56] LABS: ALANINE AMINOTRANSFERASE 39 IU/L (21-72); ALBUMIN 4.7 g/dL (3.5-5.0); ALKALINE PHOSPHATASE 63 IU/L (38-126); ANION GAP 16 mEq/L (8-16); ASPARTATE AMINOTRANSFERASE 36 IU/L (17-59); BILIRUBIN,TOTAL 0.8 mg/dL (0.1-1.4); BILIRUBIN-CONJUGATED 0.6 mg/dL (0.0-0.5); BILIRUBIN-UNCONJUGATED 0.2 mg/dL (0.0-1.1); CARBON DIOXIDE 21 mEq/l (22-31); CHLORIDE 99 mEq/L (97-110); CREATININE 0.7 mg/dL (0.7-1.3); GLOMERULAR FILTRATION RATE > 60; GLUCOSE 125 mg/dL (70-100); POTASSIUM 3.5 mEq/L (3.5-5.2); SODIUM 136 mEq/L (134-144); TOTAL PROTEIN 7.7 g/dL (6.3-8.2)
[2017-03-28 20:07] LABS: TROPONIN I < 0.012 ng/mL (0-0.034)
[2017-03-28] MEDS ORDERED: ONDANSETRON 4MG PREPACK#2 BTL TAKEHOME ONE (20:44)
[2017-03-28 21:11] VITALS: BP 138/101; PULSE 75; RESP 18; O2SAT 96
== END 2017-03-28 20:58 | disposition home or self-care (01) ==
LOC: EDUNIT#
DX: F41.9 Anxiety disorder, unspecified (principal); K29.20 Alcoholic gastritis without bleeding
CPT/HCPCS: Q9967

== ENCOUNTER 2017-04-04 23:55 | Emergency (ER) | payer MEDICAID ==
[2017-04-05 01:51] LABS: ANION GAP 18 mEq/L (8-16); CALCIUM 9.1 mg/dL (8.5-10.4); CARBON DIOXIDE 22 mEq/l (22-31); CHLORIDE 111 mEq/L (97-110); CREATININE 0.8 mg/dL (0.7-1.3); GLOMERULAR FILTRATION RATE > 60; GLUCOSE 102 mg/dL (70-100); SODIUM 151 mEq/L (134-144)
[2017-04-05 02:03] LABS: TROPONIN I < 0.012 ng/mL (0-0.034)
[2017-04-05 02:05] LABS: ETHANOL SERUM 365 mg/dL (0-10)
--- NOTE | 2017-04-05 02:51 | EDPHY ---
H & P Stated Complaint: ETOH, CP Time Seen by Provider: 04/04/17 23:58 HPI/ROS: HPI The patient presents brought in by ambulance with chest pain which he describes as a sharp pain in his mid chest that travels to his back. He has had this pain several times before. He has been drinking heavily today and feels suicidal. He is asking to sign a DNR. He says that if we discharge him he will trying to kill himself by taking 400 pills at home.. REVIEW OF SYSTEMS Constitutional: No fever, no chills. Eyes: No discharge. ENT: No sore throat. Cardiovascular: Positive for chest pain, no palpitations. Respiratory: No cough, no shortness of breath. Gastrointestinal: No abdominal pain, no vomiting. Genitourinary: No hematuria. Musculoskeletal: No back pain. Skin: No rashes. Neurological: No headache. PMHx: Very frequent ER visits, schizoaffective disorder, COPD, hypertension, anxiety Soc Hx: Heavy alcohol use, lives independently PHYSICAL General Appearance: Alert, no distress Eyes: Pupils equal and round no pallor or injection ENT, Mouth: Mucous membranes moist Respiratory: There are no retractions, lungs are clear to auscultation Cardiovascular: Regular rate and rhythm Gastrointestinal: Abdomen is soft and non-tender, no masses, bowel sounds normal Neurological: A&O, moves all extremities Skin: Warm and dry, no rashes Musculoskeletal: Neck is supple non tender Extremities: symmetrical, full range of motion Psychiatric: Patient is oriented X 3, there is no agitation Source: Patient, EMS Exam Limitations: Intoxication - Personal History Current Tetanus Diphtheria and Acellular Pertussis (TDAP): Yes Tetanus Vaccine Date: < 10 YEARS - Medical/Surgical History Hx Asthma: Yes Hx Chronic Respiratory Disease: No Hx Diabetes: No Hx Cardiac Disease: Yes Hx Renal Disease: No Hx Cirrhosis: Yes Hx Alcoholism: Yes Hx HIV/AIDS: No Hx Splenectomy or Spleen Trauma: No Other PMH: MEDICAL- ANXIETY, LIVER DISEASE, ASCITES, IVDA, HEP C+, alcohol and drug abuse/MENTAL HEALTH, htn,cirrohsis, hx of 3 ruptured discs/back surgs/ tonsillectomy, - Social History Smoking Status: Heavy smoker Constitutional: Initial Vital Signs Temperature (C) 36.6 C 04/04/17 23:58 Heart Rate 96 04/04/17 23:58 Respiratory Rate 16 04/04/17 23:58 Blood Pressure 124/89 H 04/04/17 23:58 O2 Sat (%) 92 04/04/17 23:58 O2 Delivery Mode Room Air O2 (L/minute) 2 Allergies/Adverse Reactions: levofloxacin [From Levaquin] Allergy (Severe, Verified 03/23/17 21:05) tendinopathy lisinopril Allergy (Verified 03/23/17 21:05) Home Medications: Medication Instructions Recorded Ibuprofen [Motrin (*)] 600 mg PO DAILY PRN 06/29/16 Sertraline HCl [Zoloft 100mg (*)] 100 mg PO DAILY 06/29/16 Albuterol [Proventil Inhaler HFA 1 - 2 puffs IH Q4H PRN 01/25/17 (*)] Amlodipine Besylate [Norvasc] 10 mg PO DAILY 01/25/17 Chlorthalidone [Chlorthalidone 25 25 mg PO BID@07,19 01/25/17 mg (*)] Fluticasone Hfa 220 Mcg [Flovent 1 puffs IH BID #1 mdi 02/05/17 220 MCG Hfa MDI (*)] Tamsulosin HCl [Flomax 0.4 MG (*)] 0.4 mg PO DAILY PRN 02/12/17 Ibuprofen [Motrin (*)] 600 mg PO BID #10 tab 02/19/17 Medical Decision Making Differential Diagnosis: This is a 62-year-old man, well known to our emergency room with COPD, hypertension, schizoaffective disorder, anxiety with heavy alcohol use who presents brought in by ambulance for chest pain and feeling suicidal with a plan to ingest pills. He has stated these claims several times before with fairly unremarkable workups. Differential diagnosis includes ACS, anxiety, alcohol intoxication. In the emergency room, basic labs were checked and were all unremarkable except for a very elevated alcohol level in the 300s. The patient was placed on a detainer given his suicidal statements. During the course of his stay, he became agitated, yelling and screaming, poorly cooperative. He was given Geodon 10 mg IM for this which allowed him to sleep for several hours. When he awoke he breathalyzer 164. He is feeling much better now, no longer suicidal. He says he would like to go home and sit in his cool air conditioning. He will be discharged from the emergency room. - Data Points Laboratory Results: Laboratory Results 04/05/17 00:25 04/05/17 00:25 04/05/17 04/05/17 00:25 00:25 WBC REJ RBC REJ Hgb REJ Hct REJ MCV REJ MCH REJ MCHC REJ RDW REJ Plt Count REJ MPV REJ Neut % (Auto) REJ Lymph % (Auto) REJ [place] % (Auto) REJ Eos % (Auto) REJ Baso % (Auto) REJ Nucleat RBC Rel Count REJ Absolute Neuts (auto) REJ Absolute Lymphs (auto) REJ Absolute Monos (auto) REJ Absolute Eos (auto) REJ Absolute Basos (auto) REJ Absolute Nucleated RBC REJ Immature Gran % REJ Immature Gran # REJ Sodium 151 mEq/L H mEq/L (134-144) Potassium 4.0 mEq/L mEq/L (3.5-5.2) Chloride 111 mEq/L H mEq/L (97-110) Carbon Dioxide 22 mEq/l mEq/l (22-31) Anion Gap 18 mEq/L H mEq/L (8-16) BUN 8 mg/dL mg/dL (7-23) Creatinine 0.8 mg/dL mg/dL (0.7-1.3) Estimated GFR > 60 Glucose 102 mg/dL H mg/dL (70-100) Calcium 9.1 mg/dL mg/dL (8.5-10.4) Troponin I < 0.012 ng/mL ng/mL (0-0.034) Ethyl Alcohol 365 mg/dL H mg/dL (0-10) Medications Given: Discontinued Medications Ziprasidone (Geodon) 10 mg IM ONCE ONE Stop: 04/05/17 03:24 Last Admin: 04/05/17 03:23 Dose: 10 mg Departure - Departure Disposition: Home, Routine, Self-Care Clinical Impression: Anxiety Alcohol intoxication Qualifiers: Complication of substance-induced condition: with delirium Qualified Code(s): F10.921 - Alcohol use, unspecified with intoxication delirium Chest pain Qualifiers: Chest pain type: unspecified Qualified Code(s): R07.9 - Chest pain, unspecified Condition: Good Instructions: Alcohol Intoxication (ED) Referrals: [facility],. [Clinic] - As per Instructions
[2017-04-05] MEDS ORDERED: ZIPRASIDONE MESYLATE 20 MG VIAL IM ONE ×2 (03:02→03:23)
[2017-04-05 04:12] VITALS: PULSE 90
[2017-04-05 06:14] VITALS: BP 138/98; RESP 17; TEMP 97.7; O2SAT 95
== END 2017-04-05 06:12 | disposition home or self-care (01) ==
LOC: EDUNIT#
DX: R07.9 Chest pain, unspecified (principal); F41.9 Anxiety disorder, unspecified; F10.921 Alcohol use, unspecified with intoxication delirium; I10 Essential (primary) hypertension; J44.9 Chronic obstructive pulmonary disease, unspecified; F17.200 Nicotine dependence, unspecified, uncomplicated
CPT/HCPCS: G0480; J3486

== ENCOUNTER 2017-04-06 12:49 | Emergency (ER) | payer MEDICAID ==
--- NOTE | 2017-04-06 13:41 | EDPHY ---
H & P Time Seen by Provider: 04/06/17 12:55 HPI/ROS: Chief complaint. Chest pain HPI. Patient is a 62-year-old male the air with alcohol intoxication, vomiting , diarrhea for 1 day. Chest pain for several days. He also has suicide ideation. He says he was seeing color bubbles and hearing birds. His last drink was this morning. Has thoughts of harming himself by taking his pills. He was seen April 04 in our emergency department for similar symptoms. He was intoxicated. As he became more sober he denies suicide ideation and wanted to go home so he was discharged without mental health evaluation. He has been drinking steadily since he was discharged from the emergency department. He has had many similar episodes of chest discomfort previously. He describes his chest discomfort as central radiating to his left neck. No shortness of breath. It is not worse with position, exertion, breathing. No fever. He has no injuries. ROS Constitutional. Weakness Eyes. no problems with vision ENT. no sore throat, no nasal drainage Cardiovascular. Chest pain Respiratory. no shortness of breath, no cough Abdominal. Vomiting and diarrhea . no problems urinating MS. no calf pain/swelling, no neck/back pain, no joint pain Skin. no rash Lymph. no swollen glands Neuro. Difficulty walking secondary to intoxication Past Medical/Surgical History: Past medical history significant for schizoaffective disorder, anxiety, alcoholic liver disease, ascites, IVDA, hep C , alcoholism, hypertension, cirrhosis, chronic back pain, COPD Social History: Single, lives alone, positive smoker, recent alcohol Smoking Status: Heavy smoker Physical Exam: General Appearance: Alert well-developed male moderate distress vital signs show heart rate 101 an initial blood pressure 144/111 Eyes: Pupils equal and round no pallor or injection. ENT, Mouth: Mucous membranes are moist. Respiratory: There are no retractions, lungs are clear to auscultation. Cardiovascular: Regular rate and rhythm. Gastrointestinal: Abdomen is soft and nontender but distended with findings of ascites. Neurological: Awake and alert, sensory and motor exams grossly normal. Skin: Warm and dry, no rashes. Musculoskeletal: Neck is supple nontender. Extremities edema of both hands and both feet Psychiatric: Patient is oriented X 3, there is no agitation. Constitutional: Initial Vital Signs Temperature (C) 36.7 C 04/06/17 13:05 Heart Rate 101 H 04/06/17 13:05 Respiratory Rate 16 04/06/17 13:05 Blood Pressure 144/111 H 04/06/17 13:05 O2 Sat (%) 94 04/06/17 13:05 O2 Delivery Mode Nasal Cannula O2 (L/minute) 2 Allergies/Adverse Reactions: levofloxacin [From Levaquin] Allergy (Severe, Verified 03/23/17 21:05) tendinopathy lisinopril Allergy (Verified 03/23/17 21:05) Home Medications: Medication Instructions Recorded Ibuprofen [Motrin (*)] 600 mg PO DAILY PRN 06/29/16 Sertraline HCl [Zoloft 100mg (*)] 100 mg PO DAILY 06/29/16 Albuterol [Proventil Inhaler HFA 1 - 2 puffs IH Q4H PRN 01/25/17 (*)] Amlodipine Besylate [Norvasc] 10 mg PO DAILY 01/25/17 Chlorthalidone [Chlorthalidone 25 25 mg PO BID@07,01/25/17 mg (*)] Fluticasone Hfa 220 Mcg [Flovent 1 puffs IH BID #1 mdi 02/05/17 220 MCG Hfa MDI (*)] Tamsulosin HCl [Flomax 0.4 MG (*)] 0.4 mg PO DAILY PRN 02/12/17 Ibuprofen [Motrin (*)] 600 mg PO BID #10 tab 02/19/17 Medical Decision Making - Diagnostics EKG Interpretation: EKG interpreted by shows normal sinus rhythm with normal interval and axis. QRS is normal there is no significant ST elevation or depression. No arrhythmia. Rate is 95 Imaging Results: Imaging Impressions Chest X-Ray 04/06/17 13:55 Impression: Stable negative chest Chest x-ray interpreted by me shows no evidence of pneumonia or pneumothorax Procedures: IV normal saline. Ativan IV, Zofran IV ED Course/Re-evaluation: Re-evaluation 3:45 p.m.. Patient is stable. I have asked case management to see this patient and geriatric case manager is currently talking to the patient Patient is then re-evaluated after corrections caseworker seen the patient he sleeping Re-evaluation 5:15 p.m.. Patient is a little bit shaky. He is given oral Ativan. He would like a mental health evaluation. We will repeat breath the patient to see his alcohol level 6:30 p.m. patient has been evaluated by mental health and he refuses admission to detox unit. It is felt that his suicidality is stable and does not require inpatient treatment. The patient wants to go home. Differential Diagnosis: I have considered acute coronary syndrome, alcohol intoxication, sequelae of alcoholism, suicide and homicide ideation - Data Points Laboratory Results: Laboratory Results 04/06/17 14:18 04/06/17 14:18 04/06/17 04/06/17 04/06/17 15:38 14:18 14:18 WBC RBC Hgb Hct MCV MCH MCHC RDW Plt Count MPV Neut % (Auto) Lymph % (Auto) Sampson % (Auto) Eos % (Auto) Baso % (Auto) Nucleat RBC Rel Count Absolute Neuts (auto) Absolute Lymphs (auto) Absolute Monos (auto) Absolute Eos (auto) Absolute Basos (auto) Absolute Nucleated RBC Immature Gran % Immature Gran # Sodium 142 mEq/L mEq/L (134-144) Potassium 4.4 mEq/L mEq/L (3.5-5.2) Chloride 106 mEq/L mEq/L (97-110) Carbon Dioxide 18 mEq/l L mEq/l (22-31) Anion Gap 18 mEq/L H mEq/L (8-16) BUN 9 mg/dL mg/dL (7-23) Creatinine 0.8 mg/dL mg/dL (0.7-1.3) Estimated GFR > 60 Glucose 104 mg/dL H mg/dL (70-100) Calcium 9.1 mg/dL mg/dL (8.5-10.4) Total Bilirubin 1.1 mg/dL mg/dL (0.1-1.4) Conjugated Bilirubin 0.5 mg/dL mg/dL (0.0-0.5) Unconjugated Bilirubin 0.6 mg/dL mg/dL (0.0-1.1) AST 60 IU/L H IU/L (17-59) ALT 34 IU/L IU/L (21-72) Alkaline Phosphatase 65 IU/L IU/L (38-126) Troponin I < 0.012 ng/mL ng/mL (0-0.034) Total Protein 7.6 g/dL g/dL (6.3-8.2) Albumin 4.6 g/dL g/dL (3.5-5.0) Lipase 136.0 IU/L IU/L (23-300) Specimen Hemolysis 116 Urine Opiates Screen NEGATIVE (NEGATIVE) Urine Barbiturates NEGATIVE (NEGATIVE) Ur Phencyclidine Scrn NEGATIVE (NEGATIVE) Ur Amphetamine Screen NEGATIVE (NEGATIVE) U Benzodiazepines Scrn NON-NEGATIVE H (NEGATIVE) Urine Cocaine Screen NEGATIVE (NEGATIVE) U Marijuana (THC) Screen NON-NEGATIVE H (NEGATIVE) Ethyl Alcohol 178 mg/dL H mg/dL (0-10) 04/06/17 14:18 WBC 6.65 10^3/uL 10^3/uL (3.80-9.50) RBC 4.95 10^6/uL 10^6/uL (4.40-6.38) Hgb 15.7 g/dL g/dL (13.7-17.5) Hct 44.3 % % (40.0-51.0) MCV 89.5 fL fL (81.5-99.8) MCH 31.7 pg pg (27.9-34.1) MCHC 35.4 g/dL g/dL (32.4-36.7) RDW 14.4 % % (11.5-15.2) Plt Count 273 10^3/uL 10^3/uL (150-400) MPV 9.3 fL fL (8.7-11.7) Neut % (Auto) 64.0 % % (39.3-74.2) Lymph % (Auto) 22.3 % % (15.0-45.0) Sampson % (Auto) 12.9 % % (4.5-13.0) Eos % (Auto) 0.0 % L % (0.6-7.6) Baso % (Auto) 0.6 % % (0.3-1.7) Nucleat RBC Rel Count 0.0 % % (0.0-0.2) Absolute Neuts (auto) 4.26 10^3/uL 10^3/uL (1.70-6.50) Absolute Lymphs (auto) 1.48 10^3/uL 10^3/uL (1.00-3.00) Absolute Monos (auto) 0.86 10^3/uL H 10^3/uL (0.30-0.80) Absolute Eos (auto) 0.00 10^3/uL L 10^3/uL (0.03-0.40) Absolute Basos (auto) 0.04 10^3/uL 10^3/uL (0.02-0.10) Absolute Nucleated RBC 0.00 10^3/uL 10^3/uL (0-0.01) Immature Gran % 0.2 % % (0.0-1.1) Immature Gran # 0.01 10^3/uL 10^3/uL (0.00-0.10) Sodium Potassium Chloride Carbon Dioxide Anion Gap BUN Creatinine Estimated GFR Glucose Calcium Total Bilirubin Conjugated Bilirubin Unconjugated Bilirubin AST ALT Alkaline Phosphatase Troponin I Total Protein Albumin Lipase Specimen Hemolysis Urine Opiates Screen Urine Barbiturates Ur Phencyclidine Scrn Ur Amphetamine Screen U Benzodiazepines Scrn Urine Cocaine Screen U Marijuana (THC) Screen Ethyl Alcohol Medications Given: Discontinued Medications Chlordiazepoxide HCl (Librium) 50 mg PO EDNOW ONE Stop: 04/06/17 17:53 Last Admin: 04/06/17 18:06 Dose: 50 mg Sodium Chloride (Ns) 1,000 mls @ 0 mls/hr IV ONCE ONE; Wide Open PRN Reason: Protocol Stop: 04/06/17 13:56 Last Admin: 04/06/17 14:56 Dose: 1,000 mls Lorazepam (Ativan Injection) 1 mg IVP EDNOW ONE Stop: 04/06/17 14:34 Last Admin: 04/06/17 14:56 Dose: 1 mg Lorazepam (Ativan) 1 mg PO EDNOW ONE Stop: 04/06/17 17:20 Last Admin: 04/06/17 17:20 Dose: 1 mg Ondansetron HCl (Zofran) 4 mg IVP EDNOW ONE Stop: 04/06/17 14:34 Last Admin: 04/06/17 14:56 Dose: 4 mg Departure - Departure Disposition: Home, Routine, Self-Care Clinical Impression: Suicide ideation Chest pain Qualifiers: Chest pain type: unspecified Qualified Code(s): R07.9 - Chest pain, unspecified Alcohol intoxication Qualifiers: Complication of substance-induced condition: uncomplicated Qualified Code(s): F10.920 - Alcohol use, unspecified with intoxication, uncomplicated Condition: Fair Instructions: Abuse of Alcohol (ED) Additional Instructions: Continue regular medications. Return for worsening symptoms. Return for further thoughts of harming herself or others. Please drink alcohol responsibly. Follow up with your regular healthcare provider in the next 2-3 days without fail Referrals: NONE *PRIMARY CARE P,. [Primary Care Provider] - As per Instructions [facility] [Outside] - 2-3 days without fail
[2017-04-06] MEDS ORDERED: NS 1,000 ML IV ONE (13:55)
[2017-04-06 14:33] LABS: % IMMATURE GRANULYOCYTES 0.2 % (0.0-1.1); ABSOLUTE IMMATURE GRANULOCYTES 0.01 10^3/uL (0.00-0.10); ADD DIFF? NO; ADD MORPH? NO; ADD SCAN? NO; ATYPICAL LYMPHOCYTE FLAG 0 (0-99); FRAGMENT RBC FLAG 10 (0-99); HEMATOCRIT 44.3 % (40.0-51.0); HEMOGLOBIN 15.7 g/dL (13.7-17.5); LEFT SHIFT FLG 0 (0-99); LIPEMIA HEMOLYSIS FLAG 90 (0-99); MEAN CELL HEMOGLOBIN 31.7 pg (27.9-34.1); MEAN CELL HEMOGLOBIN CONCENTR. 35.4 g/dL (32.4-36.7); MEAN CELL VOLUME 89.5 fL (81.5-99.8); MEAN PLATELET VOLUME 9.3 fL (8.7-11.7); PLATELET CLUMPS FLAG 0 (0-99); PLATELET COUNT 273 10^3/uL (150-400); RED BLOOD CELL COUNT 4.95 10^6/uL (4.40-6.38); RED CELL DISTRIBUTION WIDTH 14.4 % (11.5-15.2)
[2017-04-06] MEDS ORDERED: ONDANSETRON 4 MG/2 ML VIAL IVP ONE (14:33)
[2017-04-06] MEDS ORDERED: LORazepam 2 MG/ML INJ IVP ONE (14:33)
[2017-04-06 14:43] LABS: ANION GAP 18 mEq/L (8-16); CALCIUM 9.1 mg/dL (8.5-10.4); CARBON DIOXIDE 18 mEq/l (22-31); CHLORIDE 106 mEq/L (97-110); CREATININE 0.8 mg/dL (0.7-1.3); ETHANOL SERUM 178 mg/dL (0-10); GLOMERULAR FILTRATION RATE > 60; GLUCOSE 104 mg/dL (70-100); POTASSIUM 4.4 mEq/L (3.5-5.2); SODIUM 142 mEq/L (134-144); SPECIMEN HEMOLYSIS 116
--- NOTE | 2017-04-06 14:51 | CPEKG ---
Heart Rate: 95 RR Interval: 632 P-R Interval: 160 QRSD Interval: 94 QT Interval: 380 QTC Interval: 478 P Monroe: 78 QRS Monroe: 72 T Wave Monroe: 61 EKG Severity - BORDERLINE ECG - EKG Impression: SINUS RHYTHM EKG Impression: BORDERLINE PROLONGED QT INTERVAL Electronically Signed By: Vince Jackman 06-Apr-2017 16:08:44
[2017-04-06 14:53] LABS: TROPONIN I < 0.012 ng/mL (0-0.034)
[2017-04-06 15:58] LABS: ALBUMIN 4.6 g/dL (3.5-5.0); BILIRUBIN,TOTAL 1.1 mg/dL (0.1-1.4); BILIRUBIN-CONJUGATED 0.5 mg/dL (0.0-0.5); BILIRUBIN-UNCONJUGATED 0.6 mg/dL (0.0-1.1); TOTAL PROTEIN 7.6 g/dL (6.3-8.2)
[2017-04-06] MEDS ORDERED: LORazepam 1 MG TAB PO ONE (17:19)
[2017-04-06] MEDS ORDERED: chlordiazePOXIDE 25 MG CAP ONE (17:48)
[2017-04-06] MEDS ORDERED: chlordiazePOXIDE 25 MG CAP PO ONE (17:52)
[2017-04-06 18:06] VITALS: RESP 18
[2017-04-06 18:46] VITALS: BP 144/82; PULSE 90; TEMP 98.6; O2SAT 92
== END 2017-04-06 19:00 | disposition home or self-care (01) ==
LOC: EDUNIT#
DX: R45.851 Suicidal ideations (principal); R07.9 Chest pain, unspecified; F10.120 Alcohol abuse with intoxication, uncomplicated; I10 Essential (primary) hypertension; F17.200 Nicotine dependence, unspecified, uncomplicated; J44.9 Chronic obstructive pulmonary disease, unspecified; E86.9 Volume depletion, unspecified
CPT/HCPCS: 80305; 96374; G0398; G0480; J2060; J2405

== ENCOUNTER 2017-04-07 20:15 | Emergency (ER) | payer MEDICAID ==
--- NOTE | 2017-04-07 20:25 | EDPHY ---
H & P Time Seen by Provider: 04/07/17 20:24 - Personal History Tetanus Vaccine Date: < 10 YEARS - Medical/Surgical History Hx Asthma: Yes Hx Chronic Respiratory Disease: No Hx Diabetes: No Hx Cardiac Disease: Yes Hx Renal Disease: No Hx Cirrhosis: Yes Hx Alcoholism: Yes Hx HIV/AIDS: No Hx Splenectomy or Spleen Trauma: No Other PMH: MEDICAL- ANXIETY, LIVER DISEASE, ASCITES, IVDA, HEP C+, alcohol and drug abuse/MENTAL HEALTH, htn,cirrohsis, hx of 3 ruptured discs/back surgs/ tonsillectomy, - Social History Smoking Status: Heavy smoker Constitutional: Initial Vital Signs Temperature (C) 36.9 C 04/07/17 20:25 Heart Rate 92 04/07/17 20:25 Respiratory Rate 14 04/07/17 20:25 Blood Pressure 146/84 H 04/07/17 20:25 O2 Sat (%) 94 04/07/17 20:25 O2 Delivery Mode Room Air Allergies/Adverse Reactions: levofloxacin [From Levaquin] Allergy (Severe, Verified 03/23/17 21:05) tendinopathy lisinopril Allergy (Verified 03/23/17 21:05) Home Medications: Medication Instructions Recorded Ibuprofen [Motrin (*)] 600 mg PO DAILY PRN 06/29/16 Sertraline HCl [Zoloft 100mg (*)] 100 mg PO DAILY 06/29/16 Albuterol [Proventil Inhaler HFA 1 - 2 puffs IH Q4H PRN 01/25/17 (*)] Amlodipine Besylate [Norvasc] 10 mg PO DAILY 01/25/17 Chlorthalidone [Chlorthalidone 25 25 mg PO BID@07,19 01/25/17 mg (*)] Fluticasone Hfa 220 Mcg [Flovent 1 puffs IH BID #1 mdi 02/05/17 220 MCG Hfa MDI (*)] Tamsulosin HCl [Flomax 0.4 MG (*)] 0.4 mg PO DAILY PRN 02/12/17 Ibuprofen [Motrin (*)] 600 mg PO BID #10 tab 02/19/17 Medical Decision Making ED Course/Re-evaluation: CHIEF COMPLAINT: Foot swelling HISTORY OF PRESENT ILLNESS: 62-year-old gentleman who is well known to us and has been seen multiple times over the last 15 years. He has had 27 visits already this year. He has alcoholic cirrhosis which is end-stage. Continues to get peripheral edema from his cirrhosis. He is noncompliant with outpatient follow-up. He has no specific complaints except some additional bilateral leg swelling which is chronic and recurrent for him. REVIEW OF SYSTEMS: A 10 point review of systems was performed and is negative with the exception of the elements mentioned in the history of present illness. PHYSICAL EXAM: HR, BP, O2 Sat, RR. Temp noted General Appearance: Alert, well hydrated, appropriate, and non-toxic appearing. Head: Atraumatic without scalp tenderness or obvious injury Eyes: Pupils equal, round, reactive to light and accommodation, EOMI, no trauma , no injection. Ears: Clear bilaterally, no perforation, normal landmarks Nose: Atraumatic, no rhinorrhea, clear. Throat: There is no erythema or exudates, no lesions, normal tonsils, mucus membranes moist. Neck: Supple, 2+ carotid upstroke, nontender, no lymphadenopathy. Respiratory: No retractions, no distress, no wheezes, and no accessory muscle use. Lungs are clear to auscultation bilaterally. Cardiovascular: Regular rate and rhythm, no murmurs, rubs, or gallops. Bilateral carotid, radial, dorsalis pedis, and posterior tibial pulses intact. Good capillary refill all extremities. Gastrointestinal: Abdomen is soft, nontender, non-distended, no masses, no rebound, no guarding, no peritoneal signs. Musculoskeletal: Normal active ROM of all extremities, atraumatic. Neurological: Alert, appropriate, and interactive. The patient has normal DTRs and non-focal cranial nerves, motor, sensory, and cerebellar exam. Skin: Peripheral edema bilaterally 1 to 2+ pitting up to the knees. No evidence of cellulitis or infection. No rashes, good turgor, no nodules on palpation. Past medical history: End-stage liver disease chronic alcohol abuse ascites Past surgical history: Noncontributory Family history: Noncontributory Social history: Single, unemployed, longstanding alcohol abuse does not use tobacco or other drugs DIFFERENTIAL DIAGNOSIS: Includes: Congestive heart failure cirrhosis peripheral trauma, DVT, cellulitis MEDICAL DECISION MAKING: This patient has chronic recurrent peripheral edema. It is worsening. He is noncompliant with outpatient follow-up. We will once again give him outpatient follow-up and I will give him 20 mg of Lasix x1 Departure - Departure Disposition: Home, Routine, Self-Care Clinical Impression: Peripheral edema Condition: Fair Instructions: Edema (ED) Referrals: Patient,NotPresent [Primary Care Provider] - As per Instructions Emely Sanchez MD [Doctor of Osteopathy] - As per Instructions
[2017-04-07 20:27] VITALS: BP 146/84; PULSE 92; RESP 14; TEMP 98.4; O2SAT 94
[2017-04-07] MEDS ORDERED: FUROSEMIDE 20 MG TAB PO ONE (20:40)
== END 2017-04-07 20:49 | disposition home or self-care (01) ==
LOC: EDUNIT#
DX: R60.0 Localized edema (principal); J45.909 Unspecified asthma, uncomplicated; F17.200 Nicotine dependence, unspecified, uncomplicated

== ENCOUNTER 2017-04-10 11:08 | Emergency (ER) | payer MEDICAID ==
[2017-04-10 12:02] VITALS: RESP 18
[2017-04-10 13:47] VITALS: O2SAT 95
--- NOTE | 2017-04-10 13:52 | EDPHY ---
HPI/HX/ROS/PE/MDM Narrative: CHIEF COMPLAINT: Peripheral edema HPI: The patient is a 62-year-old male, well known to this ED, seen 28 times already this year. The patient has a history of alcohol cirrhosis with recurrent peripheral edema. He is noncompliant with outpatient followup. Patient presents to the ED today with complaints of worsening lower extremity edema. Patient would like to return to the [facility]. He states he is currently in withdrawal. His last alcohol drink was at 10am. REVIEW OF SYSTEMS: Aside from elements discussed in the HPI, a comprehensive 10-point review of systems was reviewed and is negative. PMH: End-stage liver disease, chronic alcohol abuse, Hepatitis C, Back surgery, Anxiety SOCIAL HISTORY: Single. Alcohol abuse. No tobacco or drug use. PHYSICAL EXAM: General: Patient is alert, in no acute distress. ENT: Eyes are normal to inspection. ENT inspection normal. Neck: Normal inspection. Full range of motion. Respiratory: No respiratory distress. Breath sounds normal bilaterally. Cardiovascular: Mildly tachycardic, regular rhythm. Strong peripheral pulses. Abdomen: The abdomen is nontender to palpation. There are no peritoneal signs. There are normal bowel sounds. Back: Normal to inspection. No tenderness to palpation. Skin: Normal color. No rash. Warm and dry. Extremities: 2+ peripheral edema. Full range of motion. Neuro: Oriented x3. Normal motor function. Normal sensory function. ED Course: Patient with history of alcohol cirrhosis with recurrent peripheral edema, well known to this ED, presents with worsening lower extremity swelling. Case Management was asked to see the patient. I assessed the patient. Patient is medically cleared by me. Patient would like to be discharged to the [facility]. - Data Points Medications Given: Discontinued Medications Ondansetron HCl (Zofran Odt) 4 mg PO EDNOW ONE Stop: 04/10/17 14:26 Last Admin: 04/10/17 14:28 Dose: 4 mg General Time Seen by Provider: 04/10/17 13:39 Initial Vital Signs: Initial Vital Signs Temperature (C) 36.7 C 04/10/17 11:40 Heart Rate 98 04/10/17 11:40 Respiratory Rate 18 04/10/17 11:40 Blood Pressure 129/98 H 04/10/17 11:40 O2 Sat (%) 94 04/10/17 11:40 O2 Delivery Mode Room Air Allergies/Adverse Reactions: levofloxacin [From Levaquin] Allergy (Severe, Verified 04/10/17 11:59) tendinopathy lisinopril Allergy (Verified 04/10/17 11:59) Home Medications: Medication Instructions Recorded Ibuprofen [Motrin (*)] 600 mg PO DAILY PRN 06/29/16 Sertraline HCl [Zoloft 100mg (*)] 100 mg PO DAILY 06/29/16 Albuterol [Proventil Inhaler HFA 1 - 2 puffs IH Q4H PRN 01/25/17 (*)] Amlodipine Besylate [Norvasc] 10 mg PO DAILY 01/25/17 Chlorthalidone [Chlorthalidone 25 25 mg PO BID@07,19 01/25/17 mg (*)] Fluticasone Hfa 220 Mcg [Flovent 1 puffs IH BID #1 mdi 02/05/17 220 MCG Hfa MDI (*)] Tamsulosin HCl [Flomax 0.4 MG (*)] 0.4 mg PO DAILY PRN 02/12/17 Ibuprofen [Motrin (*)] 600 mg PO BID #10 tab 02/19/17 Departure - Departure Disposition: Home, Routine, Self-Care Clinical Impression: Peripheral edema Alcohol withdrawal Qualifiers: Complication of substance-induced condition: uncomplicated Qualified Code(s): F10.230 - Alcohol dependence with withdrawal, uncomplicated Condition: Good Instructions: Abuse of Alcohol (ED), Leg Edema (ED), Alcohol Withdrawal (ED) Additional Instructions: Please refrain from abusing alcohol. Return to the emergency department immediately for fever, vomiting, confusion, headache, abdominal pain or other worsening of condition. Followup with your primary care physician within 72 hours for reevaluation. Referrals: Emely Sanchez MD [Primary Care Provider] - As per Instructions
[2017-04-10] MEDS ORDERED: ONDANSETRON DISINTEGRATING 4 MG TAB PO ONE (14:25)
[2017-04-10] MEDS ORDERED: LORazepam 1 MG TAB PO ONE (14:39)
[2017-04-10] MEDS ORDERED: chlordiazePOXIDE 25 MG CAP PO ONE (14:39)
[2017-04-10 14:43] VITALS: BP 136/67; PULSE 82; TEMP 98.1
[2017-04-10] MEDS ORDERED: CHLORDIAZEPOXIDE 25MG PREPK#6 BTL TAKEHOME ONE (14:50)
== END 2017-04-10 15:22 | disposition home or self-care (01) ==
DX: R60.0 Localized edema (principal); F10.230 Alcohol dependence with withdrawal, uncomplicated

== ENCOUNTER 2017-04-23 03:44 | Emergency (ER) | payer MEDICAID ==
[2017-04-23] MEDS ORDERED: NS 1,000 ML IV ONE (03:48)
[2017-04-23] MEDS ORDERED: ONDANSETRON 4 MG/2 ML VIAL IVP ONE (03:48)
[2017-04-23] MEDS ORDERED: LORazepam 2 MG/ML INJ IVP ONE (03:49)
--- NOTE | 2017-04-23 03:53 | EDPHY ---
H & P Source: Patient, EMS - Personal History Tetanus Vaccine Date: < 10 YEARS - Medical/Surgical History Hx Asthma: Yes Hx Chronic Respiratory Disease: No Hx Diabetes: No Hx Cardiac Disease: Yes Hx Renal Disease: No Hx Cirrhosis: Yes Hx Alcoholism: Yes Hx HIV/AIDS: No Hx Splenectomy or Spleen Trauma: No Other PMH: MEDICAL- ANXIETY, LIVER DISEASE, ASCITES, IVDA, HEP C+, alcohol and drug abuse/MENTAL HEALTH, htn,cirrohsis, hx of 3 ruptured discs/back surgs/ tonsillectomy, - Social History Smoking Status: Heavy smoker HPI/ROS: HPI CHIEF COMPLAINT: Acute anxiety, diarrhea, suicidal ideation HISTORY OF PRESENT ILLNESS: This patient is a 62-year-old male well known to myself as well as the emergency room significant past medical history for anxiety, schizophrenia, COPD, opiate addiction opiate dependency, ongoing tobacco use, hypertension chronic nausea vomiting and diarrhea who presents to the emergency room by EMS at 4 o'clock in the morning with acute anxiety and diarrhea. Patient states he has been having a panic attack and acute anxiety attack with ongoing diarrhea. States he has been feeling very anxious over the last 24 hours. No vomiting no fever he denies chest pain or shortness of breath. States he thinks he sees having a full-blown panic attack. Additionally patient tells me that he is very suicidal. He cannot deal with the anxiety or panic attacks any longer. He states he was going up to the 3rd floor to jump off a commit suicide tonight but stopped became tearful. She is requesting to speak with mental health. Past Medical History: Schizophrenia, COPD, opiate addiction, opiate dependency , tobacco use, hypertension, chronic nausea vomiting and diarrhea, anxiety Past Surgical History: No recent surgical history Social History: Daily tobacco use, denies alcohol or drugs Family History: Noncontributory ROS REVIEW OF SYSTEMS: A comprehensive 10 point review of systems is otherwise negative aside from elements mentioned in the history of present illness. Exam Constitutional anxious triage nursing summary reviewed, vital signs reviewed, awake/alert. Eyes normal conjunctivae and sclera, EOMI, PERRLA. HENT normal inspection, atraumatic, moist mucus membranes, no epistaxis, neck supple/ no meningismus, no raccoon eyes. Respiratory clear to auscultation bilaterally, normal breath sounds, no respiratory distress, no wheezing. Cardiovascular rate normal, regular rhythm, no murmur, no edema, distal pulses normal. Gastrointestinal soft, non-tender, no rebound, no guarding, normal bowel sounds, no distension, no pulsatile mass. Genitourinary no CVA tenderness. Musculoskeletal no midline vertebral tenderness, full range of motion, no calf swelling, no tenderness of extremities, no meningismus, good pulses, neurovascularly intact. Skin pink, warm, & dry, no rash, skin atraumatic. Neurologic awake, alert and oriented x 3, AAOx3, moves all 4 extremities equally, motor intact, sensory intact, CN II-XII intact, normal cerebellar, normal vision, normal speech. Psychiatric anxious Heme/Lymph/Immune no lymphadenopathy. Differential Diagnosis: Includes but is not limited to in a particular order, dehydration, electrolyte disturbance, acute anxiety, panic attack Medical Decision Making: Plan for this patient IV establishment, IV fluid bolus , IV Zofran for nausea IV Ativan for acute anxiety, check basic blood work. Re- evaluate shortly. Blood draw medical clearance for mental health evaluation. M1 hold. Re-evaluation: 0357: At this time this patient be placed on M1 hold. (Esa Love) Constitutional: Initial Vital Signs Temperature (C) 36.8 C 04/23/17 03:52 Heart Rate 113 H 04/23/17 03:52 Respiratory Rate 20 04/23/17 03:52 Blood Pressure 146/122 H 04/23/17 03:52 O2 Sat (%) 93 04/23/17 03:52 O2 Delivery Mode Room Air Allergies/Adverse Reactions: levofloxacin [From Levaquin] Allergy (Severe, Verified 04/10/17 11:59) tendinopathy lisinopril Allergy (Verified 04/10/17 11:59) Home Medications: Medication Instructions Recorded Ibuprofen [Motrin (*)] 600 mg PO DAILY PRN 06/29/16 Sertraline HCl [Zoloft 100mg (*)] 100 mg PO DAILY 06/29/16 Albuterol [Proventil Inhaler HFA 1 - 2 puffs IH Q4H PRN 01/25/17 (*)] Amlodipine Besylate [Norvasc] 10 mg PO DAILY 01/25/17 Chlorthalidone [Chlorthalidone 25 25 mg PO BID@07,19 01/25/17 mg (*)] Fluticasone Hfa 220 Mcg [Flovent 1 puffs IH BID #1 mdi 02/05/17 220 MCG Hfa MDI (*)] Tamsulosin HCl [Flomax 0.4 MG (*)] 0.4 mg PO DAILY PRN 02/12/17 Ibuprofen [Motrin (*)] 600 mg PO BID #10 tab 02/19/17 Medical Decision Making ED Course/Re-evaluation: 3:00 p.m.: The patient was signed out to me at shift change by Dr. Pinto. 5:45 p.m.: I evaluated the patient. He is still awaiting to be admitted. Patient is stable. 11pm: signed over to Dr. Love at shift change. Awaiting CSU admisssion. (America Moser) I took over care of this patient at 7:00 a.m.. This patient is on an M1 hold for suicidal ideation and anxiety attack. He has been given 2 mg of oral Ativan prior to my assuming care. He is awaiting for behavioral health evaluation. 3:00 p.m.. The patient still awaits disposition by Behavioral Health. Care turned over to Dr. America Moser at this time. (Viktor Pinto) I assumed care of this patient from Dr. Love at 7:00 a.m.. Mr. Mathew received Librium around 3:00 a.m. for treatment of tachycardia. Will continue to monitor his vital signs and follow CIWA protocol. The patient slept for much of my shift. At 3:30 p.m. he reportedly said 2 1 of the nurses that he wanted to go home and that he was no longer suicidal. I interviewed him at 3:40 p.m. at which time he told me that he wanted to hurt himself and that his plan was to take all of his medications. He was requesting something for anxiety. He was given Librium for a 2nd time this afternoon but states that this is not going to be sufficient for him. He says he is not withdrawing from alcohol and has not had a drink for at least 5 days. He is requesting Ativan. He has just received Librium. This is not sufficient, I told him that he can receive Ativan. He has been treated for anxiety in the past but tells me that his therapist has discontinued him from her practice because of noncompliance and failure to keep appointments. (Hina Dumont) 5:45 p.m. the patient is sober and cooperative. He is asking to leave and denies suicidality. He is in the process of being re-evaluated. I spoke with him personally. He states that he would never hurt himself or anybody else. He states that he made these statements earlier because he did not want to leave. Will discharge him at this time. We discussed care plan and indications for returning. Mental health workers have evaluated him again and agree with this plan. I will lift his hold. (Mateusz Rivas) - Data Points Laboratory Results: Laboratory Results 04/23/17 04:50 04/23/17 04:50 Medications Given: Discontinued Medications Chlordiazepoxide HCl (Librium) 25 mg PO EDNOW ONE Stop: 04/24/17 02:50 Last Admin: 04/24/17 02:53 Dose: 25 mg Chlordiazepoxide HCl (Librium) 25 mg PO EDNOW ONE Stop: 04/24/17 15:23 Last Admin: 04/24/17 15:26 Dose: 25 mg Sodium Chloride (Ns) 1,000 mls @ 0 mls/hr IV EDNOW ONE; Wide Open PRN Reason: Protocol Stop: 04/23/17 03:49 Last Admin: 04/23/17 04:50 Dose: 1,000 mls Lorazepam (Ativan Injection) 1 mg IVP EDNOW ONE Stop: 04/23/17 03:50 Last Admin: 04/23/17 06:10 Dose: Not Given Lorazepam (Ativan) 1 mg PO EDNOW ONE Stop: 04/23/17 04:12 Last Admin: 04/23/17 04:32 Dose: 1 mg Lorazepam (Ativan) 1 mg PO EDNOW ONE Stop: 04/23/17 05:57 Last Admin: 04/23/17 06:09 Dose: 1 mg Lorazepam (Ativan) 1 mg PO ONCE ONE Stop: 04/23/17 09:43 Last Admin: 04/23/17 09:46 Dose: 1 mg Lorazepam (Ativan) 1 mg PO EDNOW ONE Stop: 04/23/17 17:36 Last Admin: 04/23/17 17:39 Dose: 1 mg Lorazepam (Ativan) 1 mg PO EDNOW ONE Stop: 04/23/17 21:58 Last Admin: 04/23/17 22:01 Dose: 1 mg Ondansetron HCl (Zofran) 4 mg IVP EDNOW ONE Stop: 04/23/17 03:49 Last Admin: 04/23/17 05:20 Dose: Not Given Ondansetron HCl (Zofran Odt) 4 mg PO EDNOW ONE Stop: 04/23/17 04:12 Last Admin: 04/23/17 04:15 Dose: 4 mg Ondansetron HCl (Zofran Odt) 4 mg PO EDNOW ONE Stop: 04/23/17 09:47 Last Admin: 04/23/17 09:48 Dose: 4 mg Departure - Departure Disposition: Home, Routine, Self-Care Clinical Impression: Anxiety Condition: Good Instructions: Anxiety (ED) Referrals: Emely Sanchez MD [Primary Care Provider] - As per Instructions
[2017-04-23] MEDS ORDERED: ONDANSETRON DISINTEGRATING 4 MG TAB PO ONE ×2 (04:11→09:46)
[2017-04-23] MEDS ORDERED: LORazepam 1 MG TAB PO ONE ×5 (04:11→21:57)
[2017-04-23 05:00] LABS: % IMMATURE GRANULYOCYTES 0.5 % (0.0-1.1); ABSOLUTE IMMATURE GRANULOCYTES 0.05 10^3/uL (0.00-0.10); ADD DIFF? NO; ADD MORPH? NO; ADD SCAN? NO; ATYPICAL LYMPHOCYTE FLAG 10 (0-99); FRAGMENT RBC FLAG 0 (0-99); HEMATOCRIT 51.6 % (40.0-51.0); LEFT SHIFT FLG 0 (0-99); LIPEMIA HEMOLYSIS FLAG 90 (0-99); MEAN CELL HEMOGLOBIN 31.1 pg (27.9-34.1); MEAN CELL HEMOGLOBIN CONCENTR. 34.9 g/dL (32.4-36.7); MEAN CELL VOLUME 89.1 fL (81.5-99.8); MEAN PLATELET VOLUME 9.4 fL (8.7-11.7); PLATELET CLUMPS FLAG 0 (0-99); PLATELET COUNT 463 10^3/uL (150-400); RED BLOOD CELL COUNT 5.79 10^6/uL (4.40-6.38); RED CELL DISTRIBUTION WIDTH 14.1 % (11.5-15.2)
[2017-04-23 05:13] LABS: ANION GAP 18 mEq/L (8-16); CALCIUM 10.6 mg/dL (8.5-10.4); CARBON DIOXIDE 21 mEq/l (22-31); CHLORIDE 102 mEq/L (97-110); CREATININE 0.7 mg/dL (0.7-1.3); ETHANOL SERUM < 10 mg/dL (0-10); GLOMERULAR FILTRATION RATE > 60; GLUCOSE 91 mg/dL (70-100); POTASSIUM 4.1 mEq/L (3.5-5.2); SALICYLATE < 1.0 mg/dL (2.0-20.0); SODIUM 141 mEq/L (134-144)
[2017-04-23 06:15] LABS: COLOR YELLOW; LEUKOCYTE ESTERASE,URINE NEGATIVE (NEGATIVE); NITRITE,URINE NEGATIVE (NEGATIVE)
[2017-04-23 06:19] LABS: MUCUS 2+ /lpf (NONE-1+)
[2017-04-23 21:31] VITALS: TEMP 98.4
[2017-04-24] MEDS ORDERED: chlordiazePOXIDE 25 MG CAP PO ONE ×2 (02:49→15:22)
[2017-04-24] MEDS ORDERED: chlordiazePOXIDE 25 MG CAP ONE (02:50)
[2017-04-24 15:55] VITALS: PULSE 103; RESP 16
[2017-04-24 18:09] VITALS: BP 132/109; O2SAT 94
== END 2017-04-24 18:08 | disposition home or self-care (01) ==
LOC: EDUNIT#
DX: F41.9 Anxiety disorder, unspecified (principal); F17.200 Nicotine dependence, unspecified, uncomplicated; I10 Essential (primary) hypertension; J44.9 Chronic obstructive pulmonary disease, unspecified
CPT/HCPCS: 80305; G0480

== ENCOUNTER 2017-04-30 02:38 | Emergency (ER) | payer MEDICAID ==
--- NOTE | 2017-04-30 02:45 | EDPHY ---
H & P Source: Patient, EMS - Personal History Tetanus Vaccine Date: < 10 YEARS - Medical/Surgical History Hx Asthma: Yes Hx Chronic Respiratory Disease: No Hx Diabetes: No Hx Cardiac Disease: Yes Hx Renal Disease: No Hx Cirrhosis: Yes Hx Alcoholism: Yes Hx HIV/AIDS: No Hx Splenectomy or Spleen Trauma: No Other PMH: MEDICAL- ANXIETY, LIVER DISEASE, ASCITES, IVDA, HEP C+, alcohol and drug abuse/MENTAL HEALTH, htn,cirrohsis, hx of 3 ruptured discs/back surgs/ tonsillectomy, - Social History Smoking Status: Heavy smoker HPI/ROS: HPI CHIEF COMPLAINT: Suicidal ideation, anxiety HISTORY OF PRESENT ILLNESS: This patient is 62-year-old male, well known to myself in the emergency room this is 29th ER visit this year, he presents emergency room by EMS feeling anxious and vague suicidal ideation. He would like to speak to mental health. He is voluntary. He tells me earlier today he felt more suicidal than normal. Does tell me he has chronic suicidal ideation. Did not have a specific plan for me today. He distally tells me he has been having diarrhea which she intermittently gets and sometimes gets chronic diarrhea. He denies any abdominal pain. He does state over the past 3 days he has been having some epigastric discomfort. He denies shortness of breath or significant left-sided chest pain denies focal weakness numbness or tingling. Denies vomiting or nausea. When I asked him what brought him back to the emergency room today states that his anxiety is out of control he had suicidal thoughts today and has been having diarrhea. Past Medical History:Anxiety, COPD, hypertension, schizoaffective disorder, tobacco abuse, narcotic dependency Past Surgical History: No recent surgery Social History: Daily tobacco, daily alcohol, denies recent use of drugs Family History: noncontributory ROS REVIEW OF SYSTEMS: A comprehensive 10 point review of systems is otherwise negative aside from elements mentioned in the history of present illness. Exam Constitutional appears well nontoxic triage nursing summary reviewed, vital signs reviewed, awake/alert. Eyes normal conjunctivae and sclera, EOMI, PERRLA. HENT normal inspection, atraumatic, moist mucus membranes, no epistaxis, neck supple/ no meningismus, no raccoon eyes. Respiratory clear to auscultation bilaterally, normal breath sounds, no respiratory distress, no wheezing. Cardiovascular rate normal, regular rhythm, no murmur, no edema, distal pulses normal. Gastrointestinal rather large abdomen, no pulsatile mass, soft, non-tender, no rebound, no guarding, normal bowel sounds, no distension I do not appreciate a fluid wave. Genitourinary no CVA tenderness. Musculoskeletal no midline vertebral tenderness, full range of motion, no calf swelling, no tenderness of extremities, no meningismus, good pulses, neurovascularly intact. Skin pink, warm, & dry, no rash, skin atraumatic. Neurologic awake, alert and oriented x 3, AAOx3, moves all 4 extremities equally, motor intact, sensory intact, CN II-XII intact, normal cerebellar, normal vision, normal speech. Psychiatric normal mood/affect. Heme/Lymph/Immune no lymphadenopathy. 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 He is voluntary and would like to speak to mental health. Will medically clear him. Re-evaluation: EKG interpretation by me on record in [employer] system. Impression time of EKG 2:57 a.m., sinus rhythm rate of [address] elevation appreciated no ST depression. Intervals are appropriate. I do not appreciate any acute ischemia on this EKG. 0603AM: No acute events overnight. Patient requesting mental evaluation. Blood work reviewed medically cleared. Patient be signed over at 7:00 a.m. shift change to Dr. Arellano ([facility]) Constitutional: Initial Vital Signs Temperature (C) 36.6 C 04/30/17 02:46 Heart Rate 91 04/30/17 02:46 Respiratory Rate 16 04/30/17 02:46 Blood Pressure 165/125 H 04/30/17 02:46 O2 Sat (%) 96 04/30/17 02:46 O2 Delivery Mode Room Air Allergies/Adverse Reactions: levofloxacin [From Levaquin] Allergy (Severe, Verified 04/30/17 02:46) tendinopathy lisinopril Allergy (Verified 04/30/17 02:46) Home Medications: Medication Instructions Recorded Ibuprofen [Motrin (*)] 600 mg PO DAILY PRN 06/29/16 Sertraline HCl [Zoloft 100mg (*)] 100 mg PO DAILY 06/29/16 Albuterol [Proventil Inhaler HFA 1 - 2 puffs IH Q4H PRN 01/25/17 (*)] Amlodipine Besylate [Norvasc] 10 mg PO DAILY 01/25/17 Chlorthalidone [Chlorthalidone 25 25 mg PO BID@07,19 01/25/17 mg (*)] Fluticasone Hfa 220 Mcg [Flovent 1 puffs IH BID #1 mdi 02/05/17 220 MCG Hfa MDI (*)] Tamsulosin HCl [Flomax 0.4 MG (*)] 0.4 mg PO DAILY PRN 02/12/17 Medical Decision Making ED Course/Re-evaluation: Re-evaluation 7:55 a.m.. Patient is stable though has elevated blood pressure. He has a history of hypertension and normally takes Norvasc. He has not taken this. He is given his usual 10 mg of Norvasc encouraged to follow up for blood pressure check Patient has been evaluated by mental health and felt to be appropriate for outpatient management (Vince Jackman) - Data Points Laboratory Results: Laboratory Results 04/30/17 03:14 04/30/17 03:14 04/30/17 04/30/17 04/30/17 03:54 03:14 03:14 WBC 7.30 10^3/uL 10^3/uL (3.80-9.50) RBC 5.13 10^6/uL 10^6/uL (4.40-6.38) Hgb 15.9 g/dL g/dL (13.7-17.5) Hct 46.1 % % (40.0-51.0) MCV 89.9 fL fL (81.5-99.8) MCH 31.0 pg pg (27.9-34.1) MCHC 34.5 g/dL g/dL (32.4-36.7) RDW 13.8 % % (11.5-15.2) Plt Count 301 10^3/uL 10^3/uL (150-400) MPV 9.4 fL fL (8.7-11.7) Neut % (Auto) 59.0 % % (39.3-74.2) Lymph % (Auto) 25.6 % % (15.0-45.0) [place] % (Auto) 12.7 % % (4.5-13.0) Eos % (Auto) 1.4 % % (0.6-7.6) Baso % (Auto) 0.8 % % (0.3-1.7) Nucleat RBC Rel Count 0.0 % % (0.0-0.2) Absolute Neuts (auto) 4.30 10^3/uL 10^3/uL (1.70-6.50) Absolute Lymphs (auto) 1.87 10^3/uL 10^3/uL (1.00-3.00) Absolute Monos (auto) 0.93 10^3/uL H 10^3/uL (0.30-0.80) Absolute Eos (auto) 0.10 10^3/uL 10^3/uL (0.03-0.40) Absolute Basos (auto) 0.06 10^3/uL 10^3/uL (0.02-0.10) Absolute Nucleated RBC 0.00 10^3/uL 10^3/uL (0-0.01) Immature Gran % 0.5 % % (0.0-1.1) Immature Gran # 0.04 10^3/uL 10^3/uL (0.00-0.10) Sodium 143 mEq/L mEq/L (134-144) Potassium 5.0 mEq/L mEq/L (3.5-5.2) Chloride 113 mEq/L H mEq/L (97-110) Carbon Dioxide 16 mEq/l L mEq/l (22-31) Anion Gap 14 mEq/L mEq/L (8-16) BUN 5 mg/dL L mg/dL (7-23) Creatinine 0.7 mg/dL mg/dL (0.7-1.3) Estimated GFR > 60 Glucose 98 mg/dL mg/dL (70-100) Calcium 9.1 mg/dL mg/dL (8.5-10.4) Troponin I < 0.012 ng/mL ng/mL (0-0.034) Salicylates < 1.0 mg/dL L mg/dL (2.0-20.0) Urine Opiates Screen NEGATIVE (NEGATIVE) Acetaminophen < 10 mcg/mL L mcg/mL (10.0-30.0) Urine Barbiturates NEGATIVE (NEGATIVE) Ur Phencyclidine Scrn NEGATIVE (NEGATIVE) Ur Amphetamine Screen NEGATIVE (NEGATIVE) U Benzodiazepines Scrn NON-NEGATIVE H (NEGATIVE) Urine Cocaine Screen NEGATIVE (NEGATIVE) U Marijuana (THC) Screen NON-NEGATIVE H (NEGATIVE) Ethyl Alcohol 20 mg/dL H mg/dL (0-10) Medications Given: Discontinued Medications Sodium Chloride (Ns) 1,000 mls @ 0 mls/hr IV ONCE ONE PRN Reason: Wide Open Stop: 04/30/17 02:52 Last Admin: 04/30/17 03:19 Dose: 1,000 mls Sodium Chloride (Ns) 1,000 mls @ 0 mls/hr IV ONCE ONE; Wide Open PRN Reason: Protocol Stop: 04/30/17 06:46 Last Admin: 04/30/17 06:47 Dose: 1,000 mls Nicotine (Nicoderm Cq) 21 mg TD EDNOW ONE Stop: 04/30/17 06:00 Last Admin: 04/30/17 06:02 Dose: 21 mg Ondansetron HCl (Zofran) 4 mg IVP EDNOW ONE Stop: 04/30/17 03:18 Last Admin: 04/30/17 03:19 Dose: 4 mg Ondansetron HCl (Zofran) 4 mg IVP EDNOW ONE Stop: 04/30/17 05:32 Last Admin: 04/30/17 05:33 Dose: 4 mg Departure - Departure Disposition: Home, Routine, Self-Care Clinical Impression: Anxiety Diarrhea Qualifiers: Diarrhea type: unspecified type Qualified Code(s): R19.7 - Diarrhea, unspecified Condition: Good Instructions: Hypertension (ED) Additional Instructions: Take your regular prescribed medications as they have been prescribed including her blood pressure medication. Return for further thoughts of harming yourself or others. Recheck at [facility] in 2-3 days without fail for blood pressure evaluation and possible change of medication Referrals: Emely Sanchez MD [Primary Care Provider] - 2-3 days without fail
[2017-04-30] MEDS ORDERED: NS 1,000 ML IV ONE ×2 (02:51→06:45)
--- NOTE | 2017-04-30 02:59 | CPEKG ---
Heart Rate: 89 RR Interval: 674 P-R Interval: 148 QRSD Interval: 90 QT Interval: 376 QTC Interval: 458 P [place]: 77 QRS [place]: 84 T Wave [place]: 71 EKG Severity - OTHERWISE NORMAL ECG - EKG Impression: SINUS RHYTHM EKG Impression: BORDERLINE RIGHT AXIS DEVIATION Electronically Signed By: Vince Jackman 30-Apr-2017 10:23:24
[2017-04-30] MEDS ORDERED: ONDANSETRON 4 MG/2 ML VIAL ONE ×2 (03:16→05:31)
[2017-04-30] MEDS ORDERED: ONDANSETRON 4 MG/2 ML VIAL IVP ONE ×2 (03:17→05:31)
[2017-04-30 03:19] LABS: % IMMATURE GRANULYOCYTES 0.5 % (0.0-1.1); ABSOLUTE IMMATURE GRANULOCYTES 0.04 10^3/uL (0.00-0.10); ADD DIFF? NO; ADD MORPH? NO; ADD SCAN? NO; ATYPICAL LYMPHOCYTE FLAG 0 (0-99); FRAGMENT RBC FLAG 0 (0-99); HEMATOCRIT 46.1 % (40.0-51.0); HEMOGLOBIN 15.9 g/dL (13.7-17.5); LEFT SHIFT FLG 0 (0-99); LIPEMIA HEMOLYSIS FLAG 90 (0-99); MEAN CELL HEMOGLOBIN CONCENTR. 34.5 g/dL (32.4-36.7); MEAN CELL VOLUME 89.9 fL (81.5-99.8); MEAN PLATELET VOLUME 9.4 fL (8.7-11.7); PLATELET CLUMPS FLAG 20 (0-99); PLATELET COUNT 301 10^3/uL (150-400); RED BLOOD CELL COUNT 5.13 10^6/uL (4.40-6.38); RED CELL DISTRIBUTION WIDTH 13.8 % (11.5-15.2)
[2017-04-30 03:31] LABS: ANION GAP 14 mEq/L (8-16); CALCIUM 9.1 mg/dL (8.5-10.4); CARBON DIOXIDE 16 mEq/l (22-31); CHLORIDE 113 mEq/L (97-110); CREATININE 0.7 mg/dL (0.7-1.3); ETHANOL SERUM 20 mg/dL (0-10); GLOMERULAR FILTRATION RATE > 60; GLUCOSE 98 mg/dL (70-100); SALICYLATE < 1.0 mg/dL (2.0-20.0); SODIUM 143 mEq/L (134-144)
[2017-04-30 03:42] LABS: TROPONIN I < 0.012 ng/mL (0-0.034)
[2017-04-30] MEDS ORDERED: NICOTINE 21 MG/24 HR PATCH TD ONE (05:59)
[2017-04-30 06:31] VITALS: TEMP 98.2
[2017-04-30] MEDS ORDERED: amLODIPine BESYLATE 5 MG TAB ONE (07:55)
[2017-04-30] MEDS ORDERED: amLODIPine BESYLATE 5 MG TAB PO ONE (07:55)
[2017-04-30 08:03] VITALS: BP 194/130; PULSE 77; RESP 16; O2SAT 97
== END 2017-04-30 08:14 | disposition home or self-care (01) ==
LOC: EDUNIT#
DX: F41.9 Anxiety disorder, unspecified (principal); E86.9 Volume depletion, unspecified; R19.7 Diarrhea, unspecified; J44.9 Chronic obstructive pulmonary disease, unspecified; I10 Essential (primary) hypertension
CPT/HCPCS: 80305; 96374; G0480; J2405

== ENCOUNTER 2017-05-07 17:07 | Emergency (ER) | payer MEDICAID ==
[2017-05-07] MEDS ORDERED: NS 1,000 ML IV ONE ×2 (17:15→17:56)
--- NOTE | 2017-05-07 17:19 | EDPHY ---
H & P Smoking Status: Heavy smoker <Gladys Barnard - Last Filed: 05/07/17 18:03> <Davide Grove - Last Filed: 05/07/17 19:23> Time Seen by Provider: 05/07/17 17:07 HPI/ROS: CHIEF COMPLAINT: Vomiting, diarrhea, dehydration HISTORY OF PRESENT ILLNESS: 62-year-old male presents to the emergency department by ambulance complaining of vomiting, diarrhea and feeling very dehydrated. He states that he has had intermittent vomiting for weeks. He has also had watery diarrhea. He has been unable to take his medication because of the vomiting. He does have a history of alcoholism and cirrhosis and has been on sober for last 2 days and therefore feels that he is in alcohol withdrawal. Denies neck or back pain. No fevers or chills. No chest pain or difficulty breathing. He has a history of COPD and is supposed to be on oxygen, however he states that this takes up to much room in his studio apartment. Patient says he is "seeing everything covered in plastic." REVIEW OF SYSTEMS: Constitutional: No fever, no chills. Eyes: No double or blurry vision. ENT: No sore throat. Respiratory: No cough, no shortness of breath. Cardiac: No chest pain. Gastrointestinal: Vomiting, diarrhea. No abdominal pain. Genitourinary: No dysuria. Musculoskeletal: No neck or back pain. Skin: No rashes. Neurological: No headache. (Gladys Barnard) Past Medical/Surgical History: Anxiety, hepatitis-C, cirrhosis, alcoholism, substance abuse, chronic back pain , tonsillectomy (Gladys Barnard) Social History: Single (Gladys Barnard) Physical Exam: General Appearance: Alert, no distress. Temperature 36.9degrees, heart rate 109 , respirations 22, 95% on room air, 148/110 Eyes: Pupils equal and round. Extraocular motions are all intact. ENT: Mouth: Mucous membranes dry. Respiratory: Diffuse expiratory wheezing throughout. No respiratory distress. 95% on room air. Cardiovascular: Regular rate and rhythm. Tachycardic with heart rate of 120 upon my examination. Gastrointestinal: Abdomen is distended and soft. He has some mild tenderness with palpation of the right upper quadrant. There is no rebound, guarding or masses noted. No CVA tenderness bilaterally. Neurological: Alert and oriented x 3, cranial nerves II through XII grossly intact Skin: Warm and dry, no rashes. Musculoskeletal: Nontender to palpate along the cervical, thoracic or lumbar spine. Neck is supple. Extremities: Full range of motion and no peripheral edema. Psychiatric: Patient is oriented X 3, there is no agitation. (EvonGladys Navdeep) Constitutional: Initial Vital Signs Temperature (C) 36.9 C 05/07/17 17:11 Heart Rate 109 H 05/07/17 17:11 Respiratory Rate 22 H 05/07/17 17:11 Blood Pressure 148/110 H 05/07/17 17:11 O2 Sat (%) 95 05/07/17 17:11 O2 Delivery Mode Room Air Allergies/Adverse Reactions: levofloxacin [From Levaquin] Allergy (Severe, Verified 05/07/17 17:10) tendinopathy lisinopril Allergy (Verified 05/07/17 17:10) Home Medications: Medication Instructions Recorded Ibuprofen [Motrin (*)] 600 mg PO DAILY PRN 06/29/16 Sertraline HCl [Zoloft 100mg (*)] 100 mg PO DAILY 06/29/16 Albuterol [Proventil Inhaler HFA 1 - 2 puffs IH Q4H PRN 01/25/17 (*)] Amlodipine Besylate [Norvasc] 10 mg PO DAILY 01/25/17 Chlorthalidone [Chlorthalidone 25 25 mg PO BID@07,19 01/25/17 mg (*)] Fluticasone Hfa 220 Mcg [Flovent 1 puffs IH BID #1 mdi 02/05/17 220 MCG Hfa MDI (*)] Tamsulosin HCl [Flomax 0.4 MG (*)] 0.4 mg PO DAILY PRN 02/12/17 Medical Decision Making <Gladys Barnard - Last Filed: 05/07/17 18:03> - Diagnostics Imaging: I viewed and interpreted images myself <Davide Grove - Last Filed: 05/07/17 19:23> - Diagnostics Imaging Results: Imaging Impressions Chest X-Ray 05/07/17 17:23 Impression: Hyperexpansion suggests COPD. Right infrahilar opacity, atelectasis versus pneumonia. Chest x-ray personally interpreted is stable. (Davide Grove) ED Course/Re-evaluation: 62-year-old male presents to the emergency department with multiple episodes of vomiting and diarrhea. He is unable to take his medication because of the vomiting. He feels dehydrated. Patient received IV normal saline. Laboratory studies are pending. Patient was given Zofran ODT by EMS and is no longer feeling nauseous currently. The chemistries are within normal limits. Specifically sodium and potassium [place] [address] without evidence of anemia. Patient received 2 L of IV normal saline. He is no longer feeling nauseous. He is concerned about alcohol withdrawal. He was also given 1 mg of Ativan IV. (Gladys Barnard) Differential Diagnosis: Including but not limited to dehydration, gastroenteritis, infectious diarrhea ( Gladys Barnard) Other Provider: PHYSICIAN DOCUMENTATION: The patient was evaluated and managed by the Physician Agency Appointments Supervisor and myself. I have reviewed the chart and agree with the findings and plan of care as documented. In addition, I examined the patient myself at 1815. History confirmed as nausea vomiting and diarrhea today, does admit to alcohol use now that his alcohol level has returned elevated. Physical findings as follows: Abdomen soft and nontender. Labs reviewed. Plan for IV fluid hydration and discharge if improved. 191: Walk to bathroom, not vomiting. Able to take oral fluids, stable for discharge. I am the secondary supervising physician. (Davide Grove) Care Turn Over: Care will be turned over to Dr. Grove at 6pm. (Gladys Barnard) - Data Points Laboratory Results: Laboratory Results 05/07/17 17:37 05/07/17 17:37 05/07/17 05/07/17 05/07/17 17:38 17:37 17:37 WBC 11.09 10^3/uL H 10^3/uL (3.80-9.50) RBC 5.20 10^6/uL 10^6/uL (4.40-6.38) Hgb 16.3 g/dL g/dL (13.7-17.5) Hct 47.3 % % (40.0-51.0) MCV 91.0 fL fL (81.5-99.8) MCH 31.3 pg pg (27.9-34.1) MCHC 34.5 g/dL g/dL (32.4-36.7) RDW 14.4 % % (11.5-15.2) Plt Count 288 10^3/uL 10^3/uL (150-400) MPV 9.3 fL fL (8.7-11.7) Neut % (Auto) 73.5 % % (39.3-74.2) Lymph % (Auto) 16.8 % % (15.0-45.0) [place] % (Auto) 8.7 % % (4.5-13.0) Eos % (Auto) 0.2 % L % (0.6-7.6) Baso % (Auto) 0.4 % % (0.3-1.7) Nucleat RBC Rel Count 0.0 % % (0.0-0.2) Absolute Neuts (auto) 8.17 10^3/uL H 10^3/uL (1.70-6.50) Absolute Lymphs (auto) 1.86 10^3/uL 10^3/uL (1.00-3.00) Absolute Monos (auto) 0.96 10^3/uL H 10^3/uL (0.30-0.80) Absolute Eos (auto) 0.02 10^3/uL L 10^3/uL (0.03-0.40) Absolute Basos (auto) 0.04 10^3/uL 10^3/uL (0.02-0.10) Absolute Nucleated RBC 0.00 10^3/uL 10^3/uL (0-0.01) Immature Gran % 0.4 % % (0.0-1.1) Immature Gran # 0.04 10^3/uL 10^3/uL (0.00-0.10) VBG Lactic Acid 2.7 mmol/L H mmol/L (0.7-2.1) Sodium 139 mEq/L mEq/L (134-144) Potassium 4.8 mEq/L mEq/L (3.5-5.2) Chloride 105 mEq/L mEq/L (97-110) Carbon Dioxide 20 mEq/l L mEq/l (22-31) Anion Gap 14 mEq/L mEq/L (8-16) BUN 14 mg/dL mg/dL (7-23) Creatinine 0.8 mg/dL mg/dL (0.7-1.3) Estimated GFR > 60 Glucose 115 mg/dL H mg/dL (70-100) Calcium 9.0 mg/dL mg/dL (8.5-10.4) Ethyl Alcohol 154 mg/dL H mg/dL (0-10) Medications Given: Discontinued Medications Sodium Chloride (Ns) 1,000 mls @ 0 mls/hr IV ONCE ONE PRN Reason: Wide Open Stop: 05/07/17 17:16 Last Admin: 05/07/17 17:36 Dose: 1,000 mls Sodium Chloride (Ns) 1,000 mls @ 0 mls/hr IV ONCE ONE PRN Reason: Wide Open Stop: 05/07/17 17:57 Last Admin: 05/07/17 18:03 Dose: 1,000 mls Lorazepam (Ativan Injection) 1 mg IVP EDNOW ONE Stop: 05/07/17 18:04 Last Admin: 05/07/17 18:08 Dose: 1 mg Departure <Gladys Barnard M - Last Filed: 05/07/17 18:03> <Davide Grove S - Last Filed: 05/07/17 19:23> - Departure Disposition: Home, Routine, Self-Care Clinical Impression: COPD (chronic obstructive pulmonary disease) Qualifiers: COPD type: unspecified COPD Qualified Code(s): J44.9 - Chronic obstructive pulmonary disease, unspecified Nausea and vomiting Qualifiers: Vomiting type: unspecified Vomiting Intractability: non-intractable Qualified Code(s): R11.2 - Nausea with vomiting, unspecified Alcohol intoxication Qualifiers: Complication of substance-induced condition: uncomplicated Qualified Code(s): F10.920 - Alcohol use, unspecified with intoxication, uncomplicated Condition: Good Instructions: Acute Nausea and Vomiting (ED) Additional Instructions: Clear liquids and then slowly advance diet as tolerated. Referrals: [facility],. [Clinic] - As per Instructions
[2017-05-07 17:45] LABS: % IMMATURE GRANULYOCYTES 0.4 % (0.0-1.1); ABSOLUTE IMMATURE GRANULOCYTES 0.04 10^3/uL (0.00-0.10); ADD DIFF? NO; ADD MORPH? NO; ADD SCAN? NO; ATYPICAL LYMPHOCYTE FLAG 0 (0-99); FRAGMENT RBC FLAG 0 (0-99); HEMATOCRIT 47.3 % (40.0-51.0); HEMOGLOBIN 16.3 g/dL (13.7-17.5); LEFT SHIFT FLG 0 (0-99); LIPEMIA HEMOLYSIS FLAG 90 (0-99); MEAN CELL HEMOGLOBIN 31.3 pg (27.9-34.1); MEAN CELL HEMOGLOBIN CONCENTR. 34.5 g/dL (32.4-36.7); MEAN PLATELET VOLUME 9.3 fL (8.7-11.7); PLATELET CLUMPS FLAG 0 (0-99); PLATELET COUNT 288 10^3/uL (150-400); RED CELL DISTRIBUTION WIDTH 14.4 % (11.5-15.2)
[2017-05-07 17:55] LABS: ANION GAP 14 mEq/L (8-16); CARBON DIOXIDE 20 mEq/l (22-31); CHLORIDE 105 mEq/L (97-110); CREATININE 0.8 mg/dL (0.7-1.3); ETHANOL SERUM 154 mg/dL (0-10); GLOMERULAR FILTRATION RATE > 60; GLUCOSE 115 mg/dL (70-100); POTASSIUM 4.8 mEq/L (3.5-5.2); SODIUM 139 mEq/L (134-144)
[2017-05-07] MEDS ORDERED: LORazepam 2 MG/ML INJ IVP ONE (18:03)
[2017-05-07 19:10] VITALS: BP 149/99; PULSE 107; RESP 18; O2SAT 92
[2017-05-07 19:28] VITALS: TEMP 98.6
== END 2017-05-07 19:28 | disposition home or self-care (01) ==
LOC: EDUNIT#
DX: R11.2 Nausea with vomiting, unspecified (principal); J44.9 Chronic obstructive pulmonary disease, unspecified; F10.120 Alcohol abuse with intoxication, uncomplicated; F17.200 Nicotine dependence, unspecified, uncomplicated
CPT/HCPCS: 96374; G0480; J2060

== ENCOUNTER 2017-05-08 23:25 | Emergency (ER) | payer MEDICAID ==
--- NOTE | 2017-05-08 23:29 | EDPHY ---
H & P HPI/ROS: HPI CHIEF COMPLAINT: Nausea, vomiting, chronic diarrhea, anxiety HISTORY OF PRESENT ILLNESS: Patient is 62-year-old male, well known to myself as well as the ER this is 31st ER visit this year, he presents emergency room with nausea vomiting diarrhea. And anxiety. He tells me that he has had multiple episodes of nonbilious nonbloody vomiting nonbloody diarrhea. States his anxiety is an all time high. He is requesting IV fluids nausea medicine and anxiety medicine. He denies chest pain or shortness of breath. He does tell me that he drank TWO 40 oz beers early this morning as well as been smoking 2 packs cigarettes today. Past Medical History: Acute anxiety, COPD, hypertension, schizoaffective disorder, tobacco use, opiate dependency Past Surgical History: No recent surgery Social History: Daily alcohol, daily tobacco, denies other illicit drugs Family History: Noncontributory ROS REVIEW OF SYSTEMS: A comprehensive 10 point review of systems is otherwise negative aside from elements mentioned in the history of present illness. Exam Constitutional anxious, triage nursing summary reviewed, vital signs reviewed, awake/alert. Eyes normal conjunctivae and sclera, EOMI, PERRLA. HENT normal inspection, atraumatic, moist mucus membranes, no epistaxis, neck supple/ no meningismus, no raccoon eyes. Respiratory clear to auscultation bilaterally, normal breath sounds, no respiratory distress, no wheezing. Cardiovascular rate normal, regular rhythm, no murmur, no edema, distal pulses normal. Gastrointestinal soft, non-tender, no rebound, no guarding, normal bowel sounds, no distension, no pulsatile mass. Genitourinary no CVA tenderness. Musculoskeletal no midline vertebral tenderness, full range of motion, no calf swelling, no tenderness of extremities, no meningismus, good pulses, neurovascularly intact. Skin pink, warm, & dry, no rash, skin atraumatic. Neurologic awake, alert and oriented x 3, AAOx3, moves all 4 extremities equally, motor intact, sensory intact, CN II-XII intact, normal cerebellar, normal vision, normal speech. Psychiatric normal mood/affect. Heme/Lymph/Immune no lymphadenopathy. Differential Diagnosis: Includes but is not limited to in a particular order acute anxiety, dehydration, electrolyte disturbance, acute nausea vomiting and diarrhea, chronic diarrhea, C diff, alcohol withdrawal Medical Decision Making: Plan for this patient IV establishment, IV fluid bolus , 1 mg IV Ativan for acute anxiety, Zofran 4 mg for nausea, check blood work, stool studies. Re-evaluation: ED x-ray KUB one view upright: Normal bowel gas pattern. No evidence of free air obstruction. 0201AM: Re-evaluation this time patient is resting comfortably feels much better after 2 mg IV Ativan and IV fluid. He has not any nausea vomiting or diarrhea here. Denies chest pain or shortness of breath. He tells me his anxiety is greatly improved. He is requesting be discharged home. Source: Patient, EMS - Personal History Tetanus Vaccine Date: < 10 YEARS - Medical/Surgical History Hx Asthma: Yes Hx Chronic Respiratory Disease: No Hx Diabetes: No Hx Cardiac Disease: Yes Hx Renal Disease: No Hx Cirrhosis: Yes Hx Alcoholism: Yes Hx HIV/AIDS: No Hx Splenectomy or Spleen Trauma: No Other PMH: MEDICAL- ANXIETY, LIVER DISEASE, ASCITES, IVDA, HEP C+, alcohol and drug abuse/MENTAL HEALTH, htn,cirrohsis, hx of 3 ruptured discs/back surgs/ tonsillectomy, - Social History Smoking Status: Heavy smoker Constitutional: Initial Vital Signs Temperature (C) 36.9 C 05/08/17 23:30 Heart Rate 108 H 05/08/17 23:30 Respiratory Rate 18 05/08/17 23:30 Blood Pressure 183/110 H 05/08/17 23:30 O2 Sat (%) 94 05/08/17 23:30 O2 Delivery Mode Room Air O2 (L/minute) 3 Allergies/Adverse Reactions: levofloxacin [From Levaquin] Allergy (Severe, Verified 05/08/17 23:29) tendinopathy lisinopril Allergy (Verified 05/08/17 23:29) Home Medications: Medication Instructions Recorded Ibuprofen [Motrin (*)] 600 mg PO DAILY PRN 06/29/16 Sertraline HCl [Zoloft 100mg (*)] 100 mg PO DAILY 06/29/16 Albuterol [Proventil Inhaler HFA 1 - 2 puffs IH Q4H PRN 01/25/17 (*)] Amlodipine Besylate [Norvasc] 10 mg PO DAILY 01/25/17 Chlorthalidone [Chlorthalidone 25 25 mg PO BID@,19 04/26/17 mg (*)] Fluticasone Hfa 220 Mcg [Flovent 1 puffs IH BID #1 mdi 02/05/17 220 MCG Hfa MDI (*)] Tamsulosin HCl [Flomax 0.4 MG (*)] 0.4 mg PO DAILY PRN 02/12/17 Medical Decision Making - Diagnostics Imaging Results: Imaging Impressions Abdomen X-Ray 05/08/17 23:29 Impression: Nonobstructive bowel gas pattern. - Data Points Laboratory Results: Laboratory Results 05/08/17 23:40 05/08/17 23:40 05/09/17 05/08/17 05/08/17 00:40 23:40 23:40 WBC RBC Hgb Hct MCV MCH MCHC RDW Plt Count MPV Neut % (Auto) Lymph % (Auto) [place] % (Auto) Eos % (Auto) Baso % (Auto) Nucleat RBC Rel Count Absolute Neuts (auto) Absolute Lymphs (auto) Absolute Monos (auto) Absolute Eos (auto) Absolute Basos (auto) Absolute Nucleated RBC Immature Gran % Immature Gran # PT 13.1 SEC SEC (12.0-15.0) INR 1.00 (0.83-1.16) APTT 24.1 SEC SEC (23.0-38.0) VBG Lactic Acid 2.2 mmol/L H mmol/L (0.7-2.1) Sodium 138 mEq/L mEq/L (134-144) Potassium 4.4 mEq/L mEq/L (3.5-5.2) Chloride 105 mEq/L mEq/L (97-110) Carbon Dioxide 17 mEq/l L mEq/l (22-31) Anion Gap 16 mEq/L mEq/L (8-16) BUN 11 mg/dL mg/dL (7-23) Creatinine 0.8 mg/dL mg/dL (0.7-1.3) Estimated GFR > 60 Glucose 106 mg/dL H mg/dL (70-100) Calcium 9.4 mg/dL mg/dL (8.5-10.4) Total Bilirubin 0.4 mg/dL mg/dL (0.1-1.4) Conjugated Bilirubin 0.3 mg/dL mg/dL (0.0-0.5) Unconjugated Bilirubin 0.1 mg/dL mg/dL (0.0-1.1) AST 45 IU/L IU/L (17-59) ALT 37 IU/L IU/L (21-72) Alkaline Phosphatase 70 IU/L IU/L (38-126) Total Protein 7.2 g/dL g/dL (6.3-8.2) Albumin 4.0 g/dL g/dL (3.5-5.0) Lipase 175.0 IU/L IU/L (23-300) Ethyl Alcohol 83 mg/dL H mg/dL (0-10) 05/08/17 05/08/17 23:40 23:40 WBC 9.07 10^3/uL 10^3/uL (3.80-9.50) RBC 5.13 10^6/uL 10^6/uL (4.40-6.38) Hgb 16.1 g/dL g/dL (13.7-17.5) Hct 46.3 % % (40.0-51.0) MCV 90.3 fL fL (81.5-99.8) MCH 31.4 pg pg (27.9-34.1) MCHC 34.8 g/dL g/dL (32.4-36.7) RDW 14.2 % % (11.5-15.2) Plt Count 275 10^3/uL 10^3/uL (150-400) MPV 9.2 fL fL (8.7-11.7) Neut % (Auto) 70.9 % % (39.3-74.2) Lymph % (Auto) 15.9 % % (15.0-45.0) [place] % (Auto) 12.1 % % (4.5-13.0) Eos % (Auto) 0.3 % L % (0.6-7.6) Baso % (Auto) 0.6 % % (0.3-1.7) Nucleat RBC Rel Count 0.0 % % (0.0-0.2) Absolute Neuts (auto) 6.43 10^3/uL 10^3/uL (1.70-6.50) Absolute Lymphs (auto) 1.44 10^3/uL 10^3/uL (1.00-3.00) Absolute Monos (auto) 1.10 10^3/uL H 10^3/uL (0.30-0.80) Absolute Eos (auto) 0.03 10^3/uL 10^3/uL (0.03-0.40) Absolute Basos (auto) 0.05 10^3/uL 10^3/uL (0.02-0.10) Absolute Nucleated RBC 0.00 10^3/uL 10^3/uL (0-0.01) Immature Gran % 0.2 % % (0.0-1.1) Immature Gran # 0.02 10^3/uL 10^3/uL (0.00-0.10) PT INR APTT VBG Lactic Acid REJ Sodium Potassium Chloride Carbon Dioxide Anion Gap BUN Creatinine Estimated GFR Glucose Calcium Total Bilirubin Conjugated Bilirubin Unconjugated Bilirubin AST ALT Alkaline Phosphatase Total Protein Albumin Lipase Ethyl Alcohol Medications Given: Discontinued Medications Sodium Chloride (Ns) 1,000 mls @ 0 mls/hr IV EDNOW ONE; Wide Open PRN Reason: Protocol Stop: 05/08/17 23:30 Last Admin: 05/08/17 23:50 Dose: 1,000 mls Sodium Chloride (Ns) 1,000 mls @ 0 mls/hr IV ONCE ONE PRN Reason: Wide Open Stop: 05/09/17 00:53 Last Admin: 05/09/17 01:04 Dose: 1,000 mls Lorazepam (Ativan Injection) 1 mg IVP EDNOW ONE Stop: 05/08/17 23:30 Last Admin: 05/08/17 23:49 Dose: 1 mg Lorazepam (Ativan Injection) 1 mg IVP EDNOW ONE Stop: 05/09/17 01:12 Last Admin: 05/09/17 01:56 Dose: 1 mg Ondansetron HCl (Zofran) 4 mg IVP EDNOW ONE Stop: 05/08/17 23:30 Last Admin: 05/08/17 23:49 Dose: 4 mg Departure - Departure Disposition: Home, Routine, Self-Care Clinical Impression: Anxiety Condition: Good Instructions: Anxiety (ED) Referrals: Emely Sanchez MD [Primary Care Provider] - As per Instructions
[2017-05-08 23:32] VITALS: RESP 18; TEMP 98.4; O2SAT 94
[2017-05-08] MEDS: LORazepam 2 MG/ML INJ IVP ONE (23:49)
[2017-05-08] MEDS: ONDANSETRON 4 MG/2 ML VIAL IVP ONE (23:49)
[2017-05-08] MEDS: NS 1,000 ML IV ONE (23:50)
[2017-05-08 23:56] LABS: % IMMATURE GRANULYOCYTES 0.2 % (0.0-1.1); ABSOLUTE IMMATURE GRANULOCYTES 0.02 10^3/uL (0.00-0.10); ADD DIFF? NO; ADD MORPH? NO; ADD SCAN? NO; ATYPICAL LYMPHOCYTE FLAG 0 (0-99); FRAGMENT RBC FLAG 0 (0-99); HEMATOCRIT 46.3 % (40.0-51.0); HEMOGLOBIN 16.1 g/dL (13.7-17.5); LEFT SHIFT FLG 0 (0-99); LIPEMIA HEMOLYSIS FLAG 90 (0-99); MEAN CELL HEMOGLOBIN 31.4 pg (27.9-34.1); MEAN CELL HEMOGLOBIN CONCENTR. 34.8 g/dL (32.4-36.7); MEAN CELL VOLUME 90.3 fL (81.5-99.8); MEAN PLATELET VOLUME 9.2 fL (8.7-11.7); PLATELET CLUMPS FLAG 10 (0-99); PLATELET COUNT 275 10^3/uL (150-400); RED BLOOD CELL COUNT 5.13 10^6/uL (4.40-6.38); RED CELL DISTRIBUTION WIDTH 14.2 % (11.5-15.2)
[2017-05-09 00:09] LABS: PROTIME(PATIENT) 13.1 SEC (12.0-15.0)
[2017-05-09 00:10] LABS: APTT 24.1 SEC (23.0-38.0)
[2017-05-09 00:18] LABS: ALANINE AMINOTRANSFERASE 37 IU/L (21-72); ALKALINE PHOSPHATASE 70 IU/L (38-126); ANION GAP 16 mEq/L (8-16); ASPARTATE AMINOTRANSFERASE 45 IU/L (17-59); BILIRUBIN,TOTAL 0.4 mg/dL (0.1-1.4); BILIRUBIN-CONJUGATED 0.3 mg/dL (0.0-0.5); BILIRUBIN-UNCONJUGATED 0.1 mg/dL (0.0-1.1); CALCIUM 9.4 mg/dL (8.5-10.4); CARBON DIOXIDE 17 mEq/l (22-31); CHLORIDE 105 mEq/L (97-110); CREATININE 0.8 mg/dL (0.7-1.3); ETHANOL SERUM 83 mg/dL (0-10); GLOMERULAR FILTRATION RATE > 60; GLUCOSE 106 mg/dL (70-100); POTASSIUM 4.4 mEq/L (3.5-5.2); SODIUM 138 mEq/L (134-144); TOTAL PROTEIN 7.2 g/dL (6.3-8.2)
[2017-05-09] MEDS: NS 1,000 ML IV ONE (01:04)
[2017-05-09] MEDS: LORazepam 2 MG/ML INJ IVP ONE (01:56)
[2017-05-09 02:58] VITALS: BP 177/112; PULSE 103
== END 2017-05-09 02:55 | disposition home or self-care (01) ==
LOC: EDUNIT#
DX: F41.9 Anxiety disorder, unspecified (principal); E86.9 Volume depletion, unspecified; J44.9 Chronic obstructive pulmonary disease, unspecified; I10 Essential (primary) hypertension; F17.200 Nicotine dependence, unspecified, uncomplicated
CPT/HCPCS: 96374; G0480; J2060; J2405

== ENCOUNTER 2017-08-02 05:54 | Emergency (ER) | payer MEDICAID ==
[2017-08-02] MEDS ORDERED: CHLORDIAZEPOXIDE 25MG PREPK#6 BTL TAKEHOME ONE (06:00)
[2017-08-02] MEDS ORDERED: chlordiazePOXIDE 25 MG CAP PO ONE (06:00)
[2017-08-02 06:02] VITALS: RESP 18; TEMP 98.4; O2SAT 95
--- NOTE | 2017-08-02 06:05 | EDPHY ---
H & P HPI/ROS: HPI CHIEF COMPLAINT: " I want to go to Detox, I am anxious" HISTORY OF PRESENT ILLNESS: This patient is 62 male well known to myself as well as the emergency room history of anxiety, alcohol use, COPD, hypertension, schizophrenia and tobacco use and presents to the emergency room with acute anxiety and requesting go to detox. States his last drink was around 10:00 p.m. last night. He drank large amount of beer. He states feeling very anxious would like to go to detox. He arrived by EMS after calling 911. He denies any significant pain anywhere. Denies vomiting. Denies diarrhea. Past Medical History: COPD, anxiety, hypertension, schizophrenia, tobacco use, daily alcohol Past Surgical History: No recent surgery Social History: Daily alcohol use. Family History: Noncontributory. ROS REVIEW OF SYSTEMS: A comprehensive 10 point review of systems is otherwise negative aside from elements mentioned in the history of present illness. Exam Constitutional anxious, triage nursing summary reviewed, vital signs reviewed, awake/alert. Noted to be tachycardic upon arrival. Eyes normal conjunctivae and sclera, EOMI, PERRLA. HENT normal inspection, atraumatic, moist mucus membranes, no epistaxis, neck supple/ no meningismus, no raccoon eyes. Respiratory clear to auscultation bilaterally, normal breath sounds, no respiratory distress, no wheezing. Cardiovascular rate normal, regular rhythm, no murmur, no edema, distal pulses normal. Gastrointestinal soft, non-tender, no rebound, no guarding, normal bowel sounds, no distension, no pulsatile mass. Genitourinary no CVA tenderness. Musculoskeletal no midline vertebral tenderness, full range of motion, no calf swelling, no tenderness of extremities, no meningismus, good pulses, neurovascularly intact. Skin pink, warm, & dry, no rash, skin atraumatic. Neurologic awake, alert and oriented x 3, AAOx3, moves all 4 extremities equally, motor intact, sensory intact, CN II-XII intact, normal cerebellar, normal vision, normal speech. Psychiatric anxious, Heme/Lymph/Immune no lymphadenopathy. Differential Diagnosis: Includes but is not limited to in a particular order acute anxiety, dehydration, electrolyte disturbance, alcohol intoxication, alcohol withdrawal. Medical Decision Making: Plan for this patient Librium p. o. 25 mg here. Librium take-home. Breath alcohol. And at the patient's request allow him to go Detox. Re-evaluation: 0627AM: Patient is now refusing go to detox. He would like to go home. He states he does not want to go to detox. His breath alcohol was 0.03. I did offer him to go to detox however he has declined. I can't make him go to detox is requesting be discharged home. He did get 25 mg p.o. Librium here 1 mg p.o. Ativan. He is feeling slightly better. Otherwise has no other complaints. Source: Patient, EMS - Personal History Tetanus Vaccine Date: < 10 YEARS - Medical/Surgical History Hx Asthma: Yes Hx Chronic Respiratory Disease: No Hx Diabetes: No Hx Cardiac Disease: Yes Hx Renal Disease: No Hx Cirrhosis: Yes Hx Alcoholism: Yes Hx HIV/AIDS: No Hx Splenectomy or Spleen Trauma: No Other PMH: MEDICAL- ANXIETY, LIVER DISEASE, ASCITES, IVDA, HEP C+, alcohol and drug abuse/MENTAL HEALTH, htn,cirrohsis, hx of 3 ruptured discs/back surgs/ tonsillectomy, - Social History Smoking Status: Heavy smoker Constitutional: Initial Vital Signs Temperature (C) 36.9 C 08/02/17 06:01 Heart Rate 114 H 08/02/17 06:01 Respiratory Rate 18 08/02/17 06:01 Blood Pressure 136/100 H 08/02/17 06:01 O2 Sat (%) 95 08/02/17 06:01 O2 Delivery Mode Room Air Allergies/Adverse Reactions: levofloxacin [From Levaquin] Allergy (Severe, Verified 08/02/17 06:03) tendinopathy lisinopril Allergy (Verified 08/02/17 06:03) Home Medications: Medication Instructions Recorded Ibuprofen [Motrin (*)] 600 mg PO DAILY PRN 06/29/16 Sertraline HCl [Zoloft 100mg (*)] 100 mg PO DAILY 06/29/16 Albuterol [Proventil Inhaler HFA 1 - 2 puffs IH Q4H PRN 01/25/17 (*)] Amlodipine Besylate [Norvasc] 10 mg PO DAILY 01/25/17 Chlorthalidone [Chlorthalidone 25 25 mg PO BID@07,19 01/25/17 mg (*)] Fluticasone Hfa 220 Mcg [Flovent 1 puffs IH BID #1 mdi 02/05/17 220 MCG Hfa MDI (*)] Tamsulosin HCl [Flomax 0.4 MG (*)] 0.4 mg PO DAILY PRN 02/12/17 Medical Decision Making - Data Points Medications Given: Discontinued Medications Chlordiazepoxide HCl (Librium) 25 mg PO EDNOW ONE Stop: 08/02/17 06:01 Last Admin: 08/02/17 06:05 Dose: 25 mg Departure - Departure Disposition: Home, Routine, Self-Care Clinical Impression: Anxiety Alcohol intoxication Qualifiers: Complication of substance-induced condition: uncomplicated Qualified Code(s): F10.920 - Alcohol use, unspecified with intoxication, uncomplicated Condition: Good Instructions: Alcohol Intoxication (ED) Additional Instructions: 1. Please return to the emergency room if you have any worsening symptoms questions or concerns. Referrals: NONE *PRIMARY CARE P,. [Primary Care Provider] - As per Instructions
[2017-08-02] MEDS ORDERED: LORazepam 1 MG TAB ONE (06:28)
[2017-08-02] MEDS ORDERED: LORazepam 1 MG TAB PO ONE (06:31)
[2017-08-02 06:53] VITALS: BP 144/106; PULSE 110
== END 2017-08-02 06:53 | disposition home or self-care (01) ==
LOC: EDUNIT#
DX: F41.9 Anxiety disorder, unspecified (principal); F10.920 Alcohol use, unspecified with intoxication, uncomplicated; J44.9 Chronic obstructive pulmonary disease, unspecified; I10 Essential (primary) hypertension; F17.200 Nicotine dependence, unspecified, uncomplicated; J45.909 Unspecified asthma, uncomplicated

== ENCOUNTER 2017-08-06 02:41 | Emergency (ER) | payer MEDICAID ==
[2017-08-06] MEDS ORDERED: chlordiazePOXIDE 25 MG CAP PO ONE (04:17)
[2017-08-06] MEDS ORDERED: ONDANSETRON DISINTEGRATING 4 MG TAB PO ONE (04:17)
--- NOTE | 2017-08-06 04:20 | EDPHY ---
H & P Stated Complaint: anxiety and wants detox Time Seen by Provider: 08/06/17 04:06 HPI/ROS: HPI The patient presents with what he describes as a panic attack which has been present for the last several hours. He says he thinks is in alcohol withdrawal and says he took his last drink a few hours ago. He says he is hallucinating, having dry heaves, is feeling tremulous. He says he has been drinking 640 oz beers and 224 oz beers a day for the last several days. He is asking for Ativan. He says he is not taking his regular medications.. REVIEW OF SYSTEMS Constitutional: No fever, no chills. Eyes: No discharge. ENT: No sore throat. Cardiovascular: No chest pain, no palpitations. Respiratory: No cough, no shortness of breath. Gastrointestinal: No abdominal pain, positive for vomiting Genitourinary: No hematuria. Musculoskeletal: No back pain. Skin: No rashes. Neurological: No headache. PMHx: Anxiety, chronic alcohol abuse, hepatitis Soc Hx: Housed, chronic alcohol abuse PHYSICAL General Appearance: Alert, moaning and uncomfortable appearing Eyes: Pupils equal and round no pallor or injection ENT, Mouth: Mucous membranes moist Respiratory: There are no retractions, lungs are clear to auscultation Cardiovascular: Tachycardic rate with regular rhythm Gastrointestinal: Abdomen is soft and non-tender, no masses, bowel sounds normal Neurological: A&O, moves all extremities Skin: Warm and dry, no rashes Musculoskeletal: Neck is supple non tender Extremities: symmetrical, full range of motion Psychiatric: Patient is oriented X 3, there is no agitation Source: Patient, EMS Exam Limitations: Intoxication - Personal History Current Tetanus/Diphtheria Vaccine: Yes Current Tetanus Diphtheria and Acellular Pertussis (TDAP): Yes Tetanus Vaccine Date: < 10 YEARS - Medical/Surgical History Hx Asthma: Yes Hx Chronic Respiratory Disease: No Hx Diabetes: No Hx Cardiac Disease: Yes Hx Renal Disease: No Hx Cirrhosis: Yes Hx Alcoholism: Yes Hx HIV/AIDS: No Hx Splenectomy or Spleen Trauma: No Other PMH: MEDICAL- ANXIETY, LIVER DISEASE, ASCITES, IVDA, HEP C+, alcohol and drug abuse/MENTAL HEALTH, htn,cirrohsis, hx of 3 ruptured discs/back surgs/ tonsillectomy, - Social History Smoking Status: Heavy smoker Constitutional: Initial Vital Signs Temperature (C) 36.8 C 08/06/17 02:46 Heart Rate 125 H 08/06/17 02:46 Respiratory Rate 22 H 08/06/17 02:46 Blood Pressure 175/127 H 08/06/17 02:46 O2 Sat (%) 95 08/06/17 02:46 O2 Delivery Mode Room Air Allergies/Adverse Reactions: levofloxacin [From Levaquin] Allergy (Severe, Verified 08/02/17 06:03) tendinopathy lisinopril Allergy (Verified 08/02/17 06:03) Home Medications: Medication Instructions Recorded Ibuprofen [Motrin (*)] 600 mg PO DAILY PRN 06/29/16 Sertraline HCl [Zoloft 100mg (*)] 100 mg PO DAILY 06/29/16 Albuterol [Proventil Inhaler HFA 1 - 2 puffs IH Q4H PRN 01/25/17 (*)] Amlodipine Besylate [Norvasc] 10 mg PO DAILY 01/25/17 Chlorthalidone [Chlorthalidone 25 25 mg PO BID@07,19 01/25/17 mg (*)] Fluticasone Hfa 220 Mcg [Flovent 1 puffs IH BID #1 mdi 02/05/17 220 MCG Hfa MDI (*)] Tamsulosin HCl [Flomax 0.4 MG (*)] 0.4 mg PO DAILY PRN 02/12/17 Medical Decision Making Differential Diagnosis: 62-year-old male, well known to this emergency department with chronic alcohol abuse, anxiety, benzodiazepine seeking frequently presents with what he describes as a panic attack in the setting of alcohol withdrawal, last drink was a few hours ago. Paramedics report he breathalyzer at 320 making alcohol withdrawal fairly unlikely though not impossible. As he could be having an anxiety attack given his symptoms. Plan for treatment with Librium for possible alcohol withdrawal, Zofran for his nausea. [facility] - Data Points Medications Given: Discontinued Medications Chlordiazepoxide HCl (Librium) 50 mg PO EDNOW ONE Stop: 08/06/17 04:18 Last Admin: 08/06/17 04:25 Dose: 50 mg Ondansetron HCl (Zofran Odt) 4 mg PO EDNOW ONE Stop: 08/06/17 04:18 Last Admin: 08/06/17 04:25 Dose: 4 mg Departure - Departure Disposition: Home, Routine, Self-Care Clinical Impression: Anxiety Alcohol withdrawal Qualifiers: Complication of substance-induced condition: uncomplicated Qualified Code(s): F10.230 - Alcohol dependence with withdrawal, uncomplicated Condition: Good Instructions: Alcohol Withdrawal (ED) Referrals: [facility] [Outside] - As per Instructions
[2017-08-06 04:39] VITALS: RESP 20; TEMP 98.2; O2SAT 94
[2017-08-06] MEDS ORDERED: CHLORDIAZEPOXIDE 25MG PREPK#6 BTL TAKEHOME ONE ×2 (04:56→04:57)
[2017-08-06 05:06] VITALS: BP 160/100; PULSE 109
--- NOTE | 2017-08-06 17:53 | ASDISCHSUM ---
Discharge Information Plan Status:Home with No Needs Medically Cleared to Leave: Discharge Date:08/06/2017 05:05 AM CM D/C Disposition:Home, Routine, Self-Care ADT D/C Disposition:Home, Routine, Self-Care Projected Discharge Date:08/06/2017 05:05 AM Transportation at D/C: Discharge Delay Reason: Follow-Up Date:08/06/2017 05:05 AM Discharge Slot: Final Diagnosis: Placement Information Patient Contact Information Contact Name:CELESTINO Relationship: Address: Home Phone: Work Phone: City: Alternate Phone: State/Zip Code: Email: Financial Information Financial Class: Primary Plan Desc:MEDICAID HEALTH FIRST DIE POLISHER Primary Plan Number:[id number] Secondary Plan Desc: Secondary Plan Number: Assessment Information LACE LACE Acuity / Level of Care Answers: Was the patient admitted to hospital via the emergency department? Yes: Emergency dept visits in Answers: 4+ last 6 months Score: 7 Date Signed: 08/06/2017 05:50 PM Electronically Signed By:Dilcia Olivia RN Intervention Information
--- NOTE | 2017-08-06 17:53 | ASDISCHSUM ---
Discharge Information Plan Status:Home with No Needs Medically Cleared to Leave: Discharge Date:08/06/2017 05:05 AM CM D/C Disposition:Home, Routine, Self-Care ADT D/C Disposition:Home, Routine, Self-Care Projected Discharge Date:08/06/2017 05:05 AM Transportation at D/C: Discharge Delay Reason: Follow-Up Date:08/06/2017 05:05 AM Discharge Slot: Final Diagnosis: Placement Information Patient Contact Information Contact Name:CELESTINO Relationship: Address: Home Phone: Work Phone: City: Alternate Phone: State/Zip Code: Email: Financial Information Financial Class: Primary Plan Desc:MEDICAID HEALTH FIRST IN FLIGHT TECHNICIAN Primary Plan Number:[id number] Secondary Plan Desc: Secondary Plan Number: Assessment Information LACE LACE Acuity / Level of Care Answers: Was the patient admitted to hospital via the emergency department? Yes: Emergency dept visits in Answers: 4+ last 6 months Score: 7 Date Signed: 08/06/2017 05:50 PM Electronically Signed By:Dilcia Olivia RN Intervention Information
--- NOTE | 2017-08-06 17:53 | ASDISCHSUM ---
Discharge Information Plan Status:Home with No Needs Medically Cleared to Leave: Discharge Date:08/06/2017 05:05 AM CM D/C Disposition:Home, Routine, Self-Care ADT D/C Disposition:Home, Routine, Self-Care Projected Discharge Date:08/06/2017 05:05 AM Transportation at D/C: Discharge Delay Reason: Follow-Up Date:08/06/2017 05:05 AM Discharge Slot: Final Diagnosis: Placement Information Patient Contact Information Contact Name:CELESTINO Relationship: Address: Home Phone: Work Phone: City: Alternate Phone: State/Zip Code: Email: Financial Information Financial Class: Primary Plan Desc:MEDICAID HEALTH FIRST PORTER SAMPLE CASE Primary Plan Number:[id number] Secondary Plan Desc: Secondary Plan Number: Assessment Information LACE LACE Acuity / Level of Care Answers: Was the patient admitted to hospital via the emergency department? Yes: Emergency dept visits in Answers: 4+ last 6 months Score: 7 Date Signed: 08/06/2017 05:50 PM Electronically Signed By:Dilcia Olivia RN Intervention Information
== END 2017-08-06 05:05 | disposition home or self-care (01) ==
LOC: EDUNIT#
DX: F41.9 Anxiety disorder, unspecified (principal); F10.230 Alcohol dependence with withdrawal, uncomplicated; F17.200 Nicotine dependence, unspecified, uncomplicated; J45.909 Unspecified asthma, uncomplicated

== ENCOUNTER 2017-08-16 07:10 | Inpatient (IN) | payer MEDICAID ==
--- NOTE | 2017-08-16 07:42 | EDPHY ---
H & P Stated Complaint: ETOH Time Seen by Provider: 08/16/17 07:42 - Personal History Current Tetanus/Diphtheria Vaccine: Yes Current Tetanus Diphtheria and Acellular Pertussis (TDAP): Yes Tetanus Vaccine Date: < 10 YEARS - Medical/Surgical History Hx Asthma: Yes Hx Chronic Respiratory Disease: No Hx Diabetes: No Hx Cardiac Disease: Yes Hx Renal Disease: No Hx Cirrhosis: Yes Hx Alcoholism: Yes Hx HIV/AIDS: No Hx Splenectomy or Spleen Trauma: No Other PMH: MEDICAL- ANXIETY, LIVER DISEASE, ASCITES, IVDA, HEP C+, alcohol and drug abuse/MENTAL HEALTH, htn,cirrohsis, hx of 3 ruptured discs/back surgs/ tonsillectomy, - Social History Smoking Status: Heavy smoker Constitutional: Initial Vital Signs Temperature (C) 36.3 C 08/16/17 07:18 Heart Rate 101 H 08/16/17 07:18 Respiratory Rate 20 08/16/17 07:18 Blood Pressure 129/108 H 08/16/17 07:18 O2 Sat (%) 91 L 08/16/17 07:18 O2 Delivery Mode Room Air O2 (L/minute) 6 Allergies/Adverse Reactions: levofloxacin [From Levaquin] Allergy (Severe, Verified 08/16/17 07:17) tendinopathy lisinopril Allergy (Verified 08/16/17 07:17) Home Medications: Medication Instructions Recorded Ibuprofen [Motrin (*)] 600 mg PO DAILY PRN 06/29/16 Sertraline HCl [Zoloft 100mg (*)] 100 mg PO DAILY 06/29/16 Albuterol [Proventil Inhaler HFA 1 - 2 puffs IH Q4H PRN 01/25/17 (*)] Amlodipine Besylate [Norvasc] 10 mg PO DAILY 01/25/17 Chlorthalidone [Chlorthalidone 25 25 mg PO BID@07,19 01/25/17 mg (*)] Fluticasone Hfa 220 Mcg [Flovent 1 puffs IH BID #1 mdi 02/05/17 220 MCG Hfa MDI (*)] Tamsulosin HCl [Flomax 0.4 MG (*)] 0.4 mg PO DAILY PRN 02/12/17 Medical Decision Making ED Course/Re-evaluation: CHIEF COMPLAINT: Alcohol intoxication. HISTORY OF PRESENT ILLNESS: This patient is a 62 year old male arriving via EMS for evaluation of alcohol intoxication. He is well known to this emergency department with 30 visits in the past year. The patient has not had anything to drink except alcohol in three weeks, and has had one meal. He complains of constant diarrhea and multiple episodes of vomiting. He has been living independently in an apartment with daily home care visits. His last drink was around 10pm last night. He states he had a seizure last night. He bruised his right thumb when he fell. His home care worker called EMS this morning. Lately, he has been incontinent of urine and stool. He feels unable to take care of himself well. He denies chest pain, shortness of breath, fever, or other associated symptoms. REVIEW OF SYSTEMS: A 10 point review of systems was performed and is negative with the exception of the elements mentioned in the history of present illness. PHYSICAL EXAM: General Appearance: Alert, well hydrated, appropriate, and non-toxic appearing. Head: Atraumatic without scalp tenderness or obvious injury Eyes: Pupils equal, round, reactive to light and accommodation, EOMI, no trauma , no injection. Ears: Clear bilaterally, no perforation, normal landmarks Nose: Atraumatic, no rhinorrhea, clear. Throat: There is no erythema or exudates, no lesions, normal tonsils, mucus membranes moist. Neck: Supple, nontender, no lymphadenopathy. Respiratory: No retractions, no distress, no wheezes, and no accessory muscle use. Lungs are clear to auscultation bilaterally. Cardiovascular: Regular rate and rhythm, no murmurs, rubs, or gallops. Bilateral carotid, radial, dorsalis pedis, and posterior tibial pulses intact. Good capillary refill all extremities. Gastrointestinal: Abdomen is distended. Soft, nontender, no masses, no rebound , no guarding, no peritoneal signs. Musculoskeletal: Normal active ROM of all extremities, atraumatic. Normal full range of motion without pain to the right thumb. Neurological: Alert, appropriate, and interactive. Nonfocal neuro exam. Skin: No rashes, good turgor, no nodules on palpation. PAST MEDICAL HISTORY: 1. Liver disease 2. Ascites 3. IVDA 4.Hepatitis C 5. Alcoholism 6. Drug abuse 7. Hypertension 8. Cirrhosis 9. Anxiety PAST SURGICAL HISTORY: Multiple back surgeries, tonsillectomy SOCIAL HISTORY: Lives independently. Has daily home care. Chronic alcohol use. DIFFERENTIAL DIAGNOSIS: The differential diagnosis for the patient's nausea and vomiting included but was not limited to ascites, gastroenteritis, gastritis, appendicitis, and medication side effect. MEDICAL DECISION MAKIN62 year old male presents with end stage liver disease, ascites, chronic diarrhea. Patient has admitted he is unable to care for himself and accepts discussion of placement in a 24 hour nursing facility. He also complains of right thumb pain. He has excellent range of motion of IP and MP joint on my exam. Plan to admit as the patient is gravely disabled and unable to care for himself at home adequately. 7:[address] Spoke with hospitalist service. Dr. Atkins accepts admission. 08:38 There has been difficulty with IV access for blood draws. A 22 gauge IV has successfully been established for hydration. Plan to continue to rehydrate the patient and attempt a second set of laboratory test draws. - Data Points Medications Given: Famotidine (Pepcid) 20 mg PO BID JEROME Stop: 02/12/18 09:29 Last Admin: 08/16/17 09:54 Dose: 20 mg Folic Acid (Folic Acid) 1 mg PO DAILY JEROME Stop: 02/12/18 09:29 Last Admin: 08/16/17 09:54 Dose: 1 mg Thiamine HCl 500 mg/ Sodium (Chloride) 105 mls @ 210 mls/hr IV DAILY JEROME Stop: 08/19/17 09:29 Last Admin: 08/16/17 09:54 Dose: 105 mls Nicotine (Nicoderm Cq) 21 mg TD DAILY PRN PRN Reason: Smoking Cessation Stop: 02/12/18 09:24 Last Admin: 08/16/17 11:05 Dose: 21 mg Discontinued Medications Chlordiazepoxide HCl (Librium) 50 mg PO ONCE ONE Stop: 08/16/17 09:26 Last Admin: 08/16/17 09:48 Dose: 50 mg Sodium Chloride (Ns) 1,000 mls @ 0 mls/hr IV EDNOW ONE; Wide Open PRN Reason: Protocol Stop: 08/16/17 07:51 Last Admin: 08/16/17 08:01 Dose: 1,000 mls Lorazepam (Ativan Injection) 2 mg IVP ONCE ONE Stop: 08/16/17 09:26 Last Admin: 08/16/17 09:48 Dose: 2 mg Departure - Departure Disposition: [facility] In[facility] Acute Clinical Impression: Chronic alcoholism, Gravely disabled Condition: Fair Report Scribed for: Jacob Tomas Report Scribed by: Florence Maruqes Date of Report: 08/16/17 Time of Report: 09:51
[2017-08-16] MEDS ORDERED: NS 1,000 ML IV ONE (07:50)
[2017-08-16 08:17] LABS: ADD MORPH? NO; ATYPICAL LYMPHOCYTE FLAG 0 (0-99); FRAGMENT RBC FLAG 0 (0-99); LEFT SHIFT FLG 0 (0-99); LIPEMIA HEMOLYSIS FLAG 90 (0-99)
[2017-08-16 08:21] LABS: PLATELET CLUMPS FLAG 300 (0-99)
[2017-08-16 08:54] LABS: ALANINE AMINOTRANSFERASE 79 IU/L (21-72); ALBUMIN 4.3 g/dL (3.5-5.0); ALKALINE PHOSPHATASE 108 IU/L (38-126); ANION GAP 20 mEq/L (8-16); ASPARTATE AMINOTRANSFERASE 113 IU/L (17-59); BILIRUBIN,TOTAL 0.4 mg/dL (0.1-1.4); BILIRUBIN-CONJUGATED 0.2 mg/dL (0.0-0.5); BILIRUBIN-UNCONJUGATED 0.2 mg/dL (0.0-1.1); CALCIUM 9.3 mg/dL (8.5-10.4); CARBON DIOXIDE 23 mEq/l (22-31); CHLORIDE 98 mEq/L (97-110); CREATININE 0.7 mg/dL (0.7-1.3); GLOMERULAR FILTRATION RATE > 60; GLUCOSE 129 mg/dL (70-100); POTASSIUM 4.3 mEq/L (3.5-5.2); SODIUM 141 mEq/L (134-144); TOTAL PROTEIN 7.4 g/dL (6.3-8.2)
[2017-08-16] MEDS ORDERED: ACETAMINOPHEN 325 MG TAB PO PRN (09:07)
[2017-08-16] MEDS ORDERED: ONDANSETRON 4 MG/2 ML VIAL IVP PRN (09:07)
[2017-08-16] MEDS ORDERED: chlordiazePOXIDE 25 MG CAP PO ONE (09:25)
[2017-08-16] MEDS ORDERED: LORazepam 2 MG/ML INJ IVP ONE (09:25)
[2017-08-16 09:32] LABS: ETHANOL SERUM 167 mg/dL (0-10)
[2017-08-16] MEDS: FAMOTIDINE 20 MG TAB PO SCH ×2 (09:54→21:18)
[2017-08-16] MEDS: FOLIC ACID 1 MG TAB PO SCH (09:54)
[2017-08-16] MEDS: THIAMINE HCL 500 MG in NS 100 ML IV SCH (09:54)
[2017-08-16] MEDS ORDERED: ALTEPLASE 2 MG VIAL IVP PRN (10:58)
[2017-08-16] MEDS: NICOTINE 21 MG/24 HR PATCH TD PRN (11:05)
--- NOTE | 2017-08-16 11:50 | ASMTCASEMG ---
Living Arrangements What is your living Answers: Alone arrangement? Who do you live with? Type Of Residence What kind of residence do Answers: Apartment you live in? Services Used Prior to Admission Community Services Used Answers: [facility] Prior to Admission Case Management Evaluation Functional: Able to Answers: No return Home with Prior Level of Function/Care Functional: ADL / IADL Answers: Other Notes: Mental Health Issues Performance Deficits Due to: Psychosocial Needs: Answers: Active Substance Abuse Behavioral Health Issue Discharge Plan Comments Coordination Status Comments Notes: Patient is a 62yo male well known to [facility] for multiple admits. He presents with complaints of his alcoholism and being incontinent of urine and stool. Met with Aniceto Lindo NP who states patient is unable to return to his living environment due to medical and psychological issues. Patient is in agreement with this. Patient has been soiling himself at home and then sitting in it. He will be detoxing from alcohol. Patient is schizoaffective disorder, bipolar type and was found to be gravely disabled on this visit to the ER. D/C plan is to assist patient with finding A SNF for custodial living as he can no longer manage independent living. CM will follow. Date Signed: 08/16/2017 11:49 AM Electronically Signed By:Maggie Guzman LCSW
[2017-08-16] MEDS: ONDANSETRON DISINTEGRATING 4 MG TAB PO PRN ×2 (12:07→23:48)
[2017-08-16] MEDS: LORazepam 2 MG/ML INJ IVP PRN ×3 (13:27→21:18)
[2017-08-16] MEDS: chlordiazePOXIDE 25 MG CAP PO PRN ×3 (13:28→21:18)
[2017-08-16] MEDS ORDERED: LOPERAMIDE HCL 2 MG CAP PO PRN (13:35)
--- NOTE | 2017-08-16 14:17 | GHP ---
[f rep st] HISTORY AND PHYSICAL DATE OF ADMISSION: 08/16/2017 CHIEF COMPLAINT: Alcohol withdrawal. HISTORY OF PRESENT ILLNESS: The patient is a 62-year-old male, well known to the hospital for multip le hospitalizations and emergency room visits. He presents to the emergency room today in acute alco hol withdrawal. He states that he is nauseous, and he also has some anxiety. He denies any current pain. He states that he has been having some diarrhea at home. He denies any chest pain, shortness of breath, or dyspnea. He denies any changes in vision. He denies any hallucinations. He feels kelly t he cannot manage independently at home at this point. PAST MEDICAL HISTORY: 1. COPD. 2. Reoccurring pneumonia. 3. Hypertension. 4. Schizoaffective disorder. 5. Anxiety disorder. 6. Alcohol abuse. 7. Hepatitis C. 8. History of IV drug use. 9. Cirrhosis. 10. Ascites. PAST SURGICAL HISTORY: Laminectomy. FAMILY HISTORY: Reviewed. The patient's father had colon cancer. SOCIAL HISTORY: The patient drinks eight 40 ounce bottles of beer a day. He lives independently, bu t his home environment is disheveled. He is a heavy smoker, unable to quantify. The patient has [facility] home care. PAST SURGICAL HISTORY: Tonsillectomy. ALLERGIES: Lisinopril. REVIEW OF SYSTEMS: A comprehensive 10-point review of systems is negative, other than noted in HPI. PHYSICAL EXAM: GENERAL: The patient is alert, disheveled, uncomfortable. VITAL SIGNS: Afebrile at 36.9, pulse is 94, respiratory rate is 20, blood pressure is 134/93, saturating 92% on 2 L. HEENT: Pupils equal, round, reactive to light. Atraumatic. Mucosal membranes are moist. NECK: Supple wi thout lymphadenopathy or JVD noted. RESPIRATORY: Lungs are clear to auscultation bilaterally. No r honchi or wheezes appreciated. CARDIOVASCULAR: Regular rate and rhythm. No gallop or murmur noted. MUSCULOSKELETAL: Range of motion is intact. There is no edema or cyanosis. SKIN: Is without not able rashes or lesions. NEUROLOGIC: The patient is focally intact. MEDICATIONS: Labetalol 100 mg p.o. b.i.d., Zoloft 100 mg daily, Imodium 2 mg daily, chlorthalidone 2 5 mg b.i.d., Norvasc 10 mg daily. LABORATORY EVALUATION: CBC has hemoglobin 12.8, with a hematocrit of 38.9. AST is 113, with an ALT of 79, and a lipase of 452. Blood alcohol is 167. ASSESSMENT AND PLAN: A 62-year-old male, who presents to the emergency room via EMS. Complains of i nability to manage at home independently. 1. Diarrhea. The patient has had no bouts of diarrhea since admission. We will continue to monitor closely. This is likely a chronic problem for the patient given his underlying chronic illnesses. A stool panel will be sent if needed. 2. Alcohol withdrawal. The patient has been placed on a CIWA protocol. Thiamine has been initiated , as well as Ativan and Librium. He may require extensive withdrawal support with transition to the ICU, but is stable now currently on the floor. The patient does not indicate whether he would like t o discontinue his alcohol consumption permanently. He states that he feels that he may have had a se izure, but is unsure, we will continue supportive management during this hospital course. 3. History of chronic obstructive pulmonary disease, with recurrent pneumonia. There is no evidence of this at this time. We will continue with supportive oxygen therapy. 4. History of hypertension. We will continue his home blood pressure medications. 5. History of tobacco abuse. Nicotine replacement has been ordered. We will continue with tobacco cessation education. 6. Schizoaffective disorder. His home medications have been continued at the time of admission. 7. DVT prophylaxis. We will continue the patient on Lovenox. The patient will be admitted to inpatient status, as he will require more than 24 hours for this hosp italization. I have reviewed the patient's care with case management. They have been initiated in a ssisting him. It has been reported that the patient's living environment is inhabitable, and he is r equesting to have assistance in the outpatient setting. [facility]. /[id number]/MODL
[2017-08-16] MEDS: LABETALOL HCL 100 MG TAB PO SCH ×2 (14:35→21:18)
[2017-08-16] MEDS: amLODIPine BESYLATE 5 MG TAB PO SCH (14:35)
[2017-08-16] MEDS: SERTRALINE HCL 100 MG TAB PO SCH (14:35)
[2017-08-16] MEDS: CHLORTHALIDONE 25 MG TAB PO SCH ×2 (14:35→21:19)
--- NOTE | 2017-08-16 15:35 | PDMN ---
Medical Necessity Medical necessity: Change to IP, as of 08/16/17, per [employer]EARCH ENGINEER; los >2 mn for eval/tx of diarrhea & alcohol withdrawal; admit for further testing, CIWA protocol/ withdrawal support; comorbid grave disability w/inability to care for self, end stage liver disease, COPD, recurrent pna, htn, schizoaffective disorder; per H& P & order 08/16/17
[2017-08-16 17:34] LABS: % IMMATURE GRANULYOCYTES 0.2 % (0.0-1.1); ABSOLUTE IMMATURE GRANULOCYTES 0.02 10^3/uL (0.00-0.10); ADD DIFF? NO; ADD MORPH? NO; ADD SCAN? NO; ATYPICAL LYMPHOCYTE FLAG 0 (0-99); FRAGMENT RBC FLAG 0 (0-99); HEMATOCRIT 42.3 % (40.0-51.0); LEFT SHIFT FLG 10 (0-99); LIPEMIA HEMOLYSIS FLAG 90 (0-99); MEAN CELL HEMOGLOBIN 31.5 pg (27.9-34.1); MEAN CELL HEMOGLOBIN CONCENTR. 35.5 g/dL (32.4-36.7); MEAN CELL VOLUME 88.9 fL (81.5-99.8); MEAN PLATELET VOLUME 9.2 fL (8.7-11.7); PLATELET CLUMPS FLAG 0 (0-99); PLATELET COUNT 263 10^3/uL (150-400); RED BLOOD CELL COUNT 4.76 10^6/uL (4.40-6.38); RED CELL DISTRIBUTION WIDTH 13.4 % (11.5-15.2)
[2017-08-16 17:47] LABS: INR 0.98 (0.83-1.16); PROTIME(PATIENT) 12.9 SEC (12.0-15.0)
[2017-08-16 17:48] LABS: APTT 23.6 SEC (23.0-38.0)
[2017-08-17] MEDS ORDERED: LIDOCAINE 5% 1 EA PATCH TD PRN (00:02)
[2017-08-17] MEDS: oxyCODONE IR 5 MG TAB PO PRN ×4 (00:15→23:33)
[2017-08-17] MEDS: chlordiazePOXIDE 25 MG CAP PO PRN ×6 (01:31→23:34)
[2017-08-17] MEDS: LORazepam 2 MG/ML INJ IVP PRN ×6 (01:31→23:34)
[2017-08-17 06:18] LABS: % IMMATURE GRANULYOCYTES 0.2 % (0.0-1.1); ABSOLUTE IMMATURE GRANULOCYTES 0.02 10^3/uL (0.00-0.10); ADD DIFF? NO; ADD MORPH? NO; ADD SCAN? NO; ATYPICAL LYMPHOCYTE FLAG 0 (0-99); FRAGMENT RBC FLAG 0 (0-99); HEMATOCRIT 44.4 % (40.0-51.0); HEMOGLOBIN 15.6 g/dL (13.7-17.5); LEFT SHIFT FLG 10 (0-99); LIPEMIA HEMOLYSIS FLAG 90 (0-99); MEAN CELL HEMOGLOBIN 31.8 pg (27.9-34.1); MEAN CELL HEMOGLOBIN CONCENTR. 35.1 g/dL (32.4-36.7); MEAN CELL VOLUME 90.4 fL (81.5-99.8); MEAN PLATELET VOLUME 9.4 fL (8.7-11.7); PLATELET CLUMPS FLAG 20 (0-99); PLATELET COUNT 230 10^3/uL (150-400); RED BLOOD CELL COUNT 4.91 10^6/uL (4.40-6.38); RED CELL DISTRIBUTION WIDTH 13.3 % (11.5-15.2)
[2017-08-17 06:39] LABS: ANION GAP 11 mEq/L (8-16); CALCIUM 8.7 mg/dL (8.5-10.4); CARBON DIOXIDE 30 mEq/l (22-31); CHLORIDE 94 mEq/L (97-110); CREATININE 0.7 mg/dL (0.7-1.3); GLOMERULAR FILTRATION RATE > 60; GLUCOSE 129 mg/dL (70-100); MAGNESIUM 1.8 mg/dL (1.6-2.3); POTASSIUM 3.1 mEq/L (3.5-5.2); SODIUM 135 mEq/L (134-144)
[2017-08-17] MEDS: amLODIPine BESYLATE 5 MG TAB PO SCH (08:12)
[2017-08-17] MEDS: SERTRALINE HCL 100 MG TAB PO SCH (08:13)
[2017-08-17] MEDS: CHLORTHALIDONE 25 MG TAB PO SCH ×2 (08:13→19:44)
[2017-08-17] MEDS: LABETALOL HCL 100 MG TAB PO SCH ×2 (08:14→19:44)
[2017-08-17] MEDS: FOLIC ACID 1 MG TAB PO SCH (08:14)
[2017-08-17] MEDS: FAMOTIDINE 20 MG TAB PO SCH ×2 (08:14→19:43)
[2017-08-17] MEDS: ENOXAPARIN 40 MG/0.4 ML SYR SC SCH (08:14)
[2017-08-17] MEDS: THIAMINE HCL 500 MG in NS 100 ML IV SCH (08:15)
[2017-08-17] MEDS ORDERED: PROTOCOL MAGNESIUM 1 DOSE IV PRN (08:50)
[2017-08-17] MEDS ORDERED: PROTOCOL POTASSIUM 1 DOSE MISC PRN (08:50)
[2017-08-17] MEDS ORDERED: PROTOCOL K PHOSPHATE 1 DOSE IV PRN (08:50)
[2017-08-17] MEDS ORDERED: ENOXAPARIN 30 MG/0.3 ML SYR SC SCH (09:00)
[2017-08-17] MEDS: NICOTINE 21 MG/24 HR PATCH TD PRN (09:13)
[2017-08-17 10:17] LABS: MAGNESIUM 1.7 mg/dL (1.6-2.3); POTASSIUM 2.8 mEq/L (3.5-5.2)
[2017-08-17] MEDS ORDERED: ALBUTEROL 3 ML DEYVIAL IH PRN (10:42)
[2017-08-17] MEDS: guaiFENesin 600 MG TAB.ER PO SCH ×2 (10:49→19:44)
[2017-08-17] MEDS: IPRATROPIUM/ALBUTEROL 3 ML DEYVIAL IH SCH ×2 (12:31→16:51)
--- NOTE | 2017-08-17 15:38 | HOSPPROG ---
Hospitalist Progress Note Assessment/Plan: 62 yo M w/hx of COPD and recent PNA presenting with acute etoh w/d as well as FTT # acute etoh w/d: improving though still with significant tremors, intermittent confusion, anxiety. Continue CIWA and etoh w/d protocol. Continue MVI, thiamine , folate. Patient states that he is willing and hoping to get off of etoh # FTT: concerns that patient has not been managing at home, apparently has been sitting in his own stool at home unable to change himself etc. Working with pt/ ot and case management for f/u plans # copd with acute exacerbation: today bs are decreased throughout and patient feels increased wob, will start scheduled duonebs, albuteral prn and guaifenasin. No fever or chills to suggest pna but will get repeat cxr to be sure. Likely due to atelectasis. # htn: well controlled on amlodipine, chlorthalidone # szad: contributing to above likely though he is behaviorally well controlled currently # dispo: IP status, will need > 48 hours stay for eval/mgmt of above Patient new to my care. Old records reviewed and summarized as above. Care plan reviewed with CM. Subjective: no significant overnight events, patient still anxious, tremulous and notes feeling sob and that it is hard to breathe currently Objective: Vital Signs Temp Pulse Resp BP Pulse Ox 36.4 C 96 20 106/87 H 92 08/17/17 15:09 08/17/17 15:09 08/17/17 15:09 08/17/17 15:09 08/17/17 15:09 Laboratory Results 08/17/17 05:35 08/17/17 09:45 08/16/17 08/17/17 08/18/17 05:59 05:59 05:59 Intake Total 0 Output Total 525 Balance -525 PT 12.9 SEC (12.0-15.0) 08/16/17 17:00 INR 0.98 (0.83-1.16) 08/16/17 17:00 awake alert disheveled anicteric op clear rrr no mrg dec bs scattered rhonchi and rales soft nt nd no cce warm dry well perfused oriented ICD10 Worksheet Patient Problems: Problems Problem Status Onset Schizoaffective disorder, bipolar type Acute COPD exacerbation Acute Anxiety Acute RANDAL (acute kidney injury) Acute Nausea vomiting and diarrhea Acute Alcoholism Acute Hyponatremia Acute Leukocytosis Acute Elevated bilirubin Acute Hypokalemia Acute Lactic acidosis Acute Alcohol intoxication Acute Leg edema Acute Hand edema Acute Pneumonia Acute Chronic obstructive pulmonary disease with acute exacerbation Acute Pneumonia Acute Hypoxia Acute Leukocytosis Acute Diarrhea Acute Bilateral knee pain Acute Bilateral ankle pain Acute Chronic alcoholism Acute Gravely disabled Acute
--- NOTE | 2017-08-17 16:08 | ASMTCMCOM ---
CM Note CM Note Notes: Pt. is a 62-year-old man with hx. of multiple [facility] ED visits ("30 in past year" per notes). This admission due to a seizure that happened the day before he admitted. Pt. having vomiting and diarrhea and "gravely disabled" per ED note. Pt. w/ hx. of severe alcoholism (drinks 8 40 ounce beers/day). Hx. smoking, IVDU, Hep C, anxiety, Schizoaffective disorder, COPD, liver disease, ascites, and back surgeries. During last hospitalization at [facility] in March, Pt. had wanted long-term placement, then did not want to go as Pt. got better. Pt. declined [place] and went home w/ [facility]. [facility] no longer has Pt. in their care. At that time Pt. had caregiver, Elicia through [facility]. PT and OT both recommending SNF at this time. Per OT, Pt. appears to be still detoxing today. SWer will discuss Pt's wishes for LTC facility with Medicaid benefits tomorrow or when Pt. is able. Note: Pt. gets some $771 in SSI benefits per past notes. Current plan: Speak w/ Pt. to see if he would like to go to LTC long-term at d/c. Date Signed: 08/17/2017 04:07 PM Electronically Signed By:Dilcia Ayala LCSW
[2017-08-17] MEDS ORDERED: PATCH REMOVAL 1 EA PATCH TD SCH (21:00)
[2017-08-18] MEDS: IPRATROPIUM/ALBUTEROL 3 ML DEYVIAL IH SCH ×2 (00:48→05:53)
[2017-08-18] MEDS: LORazepam 2 MG/ML INJ IVP PRN (05:08)
[2017-08-18] MEDS: chlordiazePOXIDE 25 MG CAP PO PRN (05:08)
[2017-08-18 05:15] VITALS: BP 123/86; PULSE 83; RESP 18; TEMP 97.6; O2SAT 89
[2017-08-18 05:21] LABS: % IMMATURE GRANULYOCYTES 0.4 % (0.0-1.1); ABSOLUTE IMMATURE GRANULOCYTES 0.03 10^3/uL (0.00-0.10); ADD DIFF? NO; ADD MORPH? NO; ADD SCAN? NO; ATYPICAL LYMPHOCYTE FLAG 0 (0-99); FRAGMENT RBC FLAG 0 (0-99); HEMATOCRIT 44.1 % (40.0-51.0); HEMOGLOBIN 15.6 g/dL (13.7-17.5); LEFT SHIFT FLG 10 (0-99); LIPEMIA HEMOLYSIS FLAG 90 (0-99); MEAN CELL HEMOGLOBIN CONCENTR. 35.4 g/dL (32.4-36.7); MEAN CELL VOLUME 90.6 fL (81.5-99.8); MEAN PLATELET VOLUME 9.3 fL (8.7-11.7); PLATELET CLUMPS FLAG 0 (0-99); PLATELET COUNT 210 10^3/uL (150-400); RED BLOOD CELL COUNT 4.87 10^6/uL (4.40-6.38); RED CELL DISTRIBUTION WIDTH 13.2 % (11.5-15.2)
[2017-08-18 05:42] LABS: ANION GAP 8 mEq/L (8-16); CALCIUM 8.6 mg/dL (8.5-10.4); CARBON DIOXIDE 36 mEq/l (22-31); CHLORIDE 93 mEq/L (97-110); CREATININE 0.8 mg/dL (0.7-1.3); GLOMERULAR FILTRATION RATE > 60; GLUCOSE 122 mg/dL (70-100); MAGNESIUM 1.9 mg/dL (1.6-2.3); POTASSIUM 2.9 mEq/L (3.5-5.2); SODIUM 137 mEq/L (134-144)
[2017-08-18] MEDS ORDERED: POTASSIUM CL 10 MEQ TAB PO ONE (07:54)
[2017-08-18] MEDS: FOLIC ACID 1 MG TAB PO SCH (08:13)
[2017-08-18] MEDS: amLODIPine BESYLATE 5 MG TAB PO SCH (08:13)
[2017-08-18] MEDS: FAMOTIDINE 20 MG TAB PO SCH (08:13)
[2017-08-18] MEDS: LABETALOL HCL 100 MG TAB PO SCH (08:13)
[2017-08-18] MEDS: SERTRALINE HCL 100 MG TAB PO SCH (08:14)
[2017-08-18] MEDS: ENOXAPARIN 40 MG/0.4 ML SYR SC SCH (08:14)
[2017-08-18] MEDS: CHLORTHALIDONE 25 MG TAB PO SCH (08:14)
[2017-08-18] MEDS: guaiFENesin 600 MG TAB.ER PO SCH (08:14)
--- NOTE | 2017-08-18 12:52 | ASDISCHSUM ---
Discharge Information Plan Status:Has needs-TBD Medically Cleared to Leave: Discharge Date:08/18/2017 09:04 AM CM D/C Disposition:Against Medical Advice ADT D/C Disposition:Against Medical Advice Projected Discharge Date:08/18/2017 09:04 AM Transportation at D/C:Self Discharge Delay Reason: Follow-Up Date:08/18/2017 09:04 AM Discharge Slot: Final Diagnosis: Placement Information Patient Contact Information Contact Name:CELESTINO Relationship: Address: Home Phone: Work Phone: City: Alternate Phone: State/Systems Integration Code: Email: Financial Information Financial Class: Primary Plan Desc:[employer] [place] Primary Plan Number:[id number] Secondary Plan Desc: Secondary Plan Number: Assessment Information [facility] Initial CM Assessment Living Arrangements What is your living Answers: Alone arrangement? Who do you live with? Type Of Residence What kind of residence do Answers: Apartment you live in? Services Used Prior to Admission Community Services Used Answers: [facility] Prior to Admission Case Management Evaluation Functional: Able to Answers: No return Home with Prior Level of Function/Care Functional: ADL / IADL Answers: Other Notes: Mental Health Issues Performance Deficits Due to: Psychosocial Needs: Answers: Active Substance Abuse Behavioral Health Issue Discharge Plan Comments Coordination Status Comments Notes: Patient is a 62yo male well known to [facility] for multiple admits. He presents with complaints of his alcoholism and being incontinent of urine and stool. Met with Aniceto Lindo NP who states patient is unable to return to his living environment due to medical and psychological issues. Patient is in agreement with this. Patient has been soiling himself at home and then sitting in it. He will be detoxing from alcohol. Patient is schizoaffective disorder, bipolar type and was found to be gravely disabled on this visit to the ER. D/C plan is to assist patient with finding A SNF for half-way living as he can no longer manage independent living. CM will follow. Date Signed: 08/16/2017 11:49 AM Electronically Signed By:Maggie Guzman LCSW [facility] Length of stay for Answers: 1 day current admission Acuity / Level of Care Answers: Was the patient admitted to hospital via the emergency department? Yes: Comorbidities - select Answers: Chronic pulmonary disease all that apply Moderate or severe liver disease or renal disease Emergency dept visits in Answers: 4+ last 6 months Score: 14 Date Signed: 08/17/2017 12:13 PM Electronically Signed By:Dilcia Ayala LCSW [facility] CM Progress Note CM Note CM Note Notes: Pt. is a 62-year-old man with hx. of multiple [facility] ED visits ("30 in past year" per notes). This admission due to a seizure that happened the day before he admitted. Pt. having vomiting and diarrhea and "gravely disabled" per ED note. Pt. w/ hx. of severe alcoholism (drinks 8 40 ounce beers/day). Hx. smoking, IVDU, Hep C, anxiety, Schizoaffective disorder, COPD, liver disease, ascites, and back surgeries. During last hospitalization at [facility] in March, Pt. had wanted shelter placement, then did not want to go as Pt. got better. Pt. declined [facility] and went home w/ [facility]. [facility] no longer has Pt. in their care. At that time Pt. had caregiver, Elicia through [facility]. PT and OT both recommending SNF at this time. Per OT, Pt. appears to be still detoxing today. SWer will discuss Pt's wishes for LTC facility with Medicaid benefits tomorrow or when Pt. is able. Note: Pt. gets some $771 in SSI benefits per past notes. Current plan: Speak w/ Pt. to see if he would like to go to [facility] shelter at d/c. Date Signed: 08/17/2017 04:07 PM Electronically Signed By:Dilcia Ayala LCSW [facility] CM Progress Note CM Note CM Note Notes: Pt left AMA this morning. Date Signed: 08/18/2017 12:51 PM Electronically Signed By:CLEMENTE Alvarez Intervention Information
--- NOTE | 2017-08-18 14:09 | PDDCSUM ---
Discharge Summary Discharge Summary: This is a discharge against medical advice. Of note, patient was not seen the day of discharge as he left prior to my being able to see him. Discharge diagnoses: # etoh withdrawal # alcohol use disorder, severe # h/o copd # htn # szad Hospital course by problem: # etoh w/d: still having w/d at the time of discharge but unwilling to stay # chronic issues: alcohol use disorder, copd, htn, szad--no changes to current plan Discharged back to home, patient homeless, left AMA, no prescriptions were given , he likely will continue drinking
== END 2017-08-18 09:04 | disposition left against medical advice (07) | DRG 894 ==
LOC: EDUNIT# → INTOOBSV 07:58 → F3E 09:11 → OBSVTOIN 14:45
PROVIDERS: ADMIT Family Medicine; ATTEND Family Medicine
PROC: 02HV33Z Insertion of Infusion Device into Superior Vena Cava, Percutaneous Approach (ICD-10-PCS; principal; 2017-08-16)
DX: F10.239 Alcohol dependence with withdrawal, unspecified (principal); J44.9 Chronic obstructive pulmonary disease, unspecified; I10 Essential (primary) hypertension; F25.9 Schizoaffective disorder, unspecified; F41.9 Anxiety disorder, unspecified; B19.20 Unspecified viral hepatitis C without hepatic coma; K70.31 Alcoholic cirrhosis of liver with ascites; F17.200 Nicotine dependence, unspecified, uncomplicated
CPT/HCPCS: 97162-GP; 97165-GO; C1751; G0378; G0480; J1650; J2060; J3411

== ENCOUNTER 2017-08-19 01:29 | Inpatient (IN) | payer MEDICAID ==
--- NOTE | 2017-08-19 01:46 | EDPHY ---
H & P Stated Complaint: nvd a mess HPI/ROS: HPI CHIEF COMPLAINT: Nausea vomiting/diarrhea, Alcohol W/d? recently left against medical advice from inpatient hospitalization. HISTORY OF PRESENT ILLNESS: This patient is 62-year-old male, well known to myself as well as the emergency room daily alcohol use and alcoholism, as well as COPD and continues to smoke tobacco. He just recently left yesterday against medical advice from the hospital service for alcohol withdrawal. He was still going through alcohol withdrawal. He left for unknown reasons and went to his apartment. He now presents back to the emergency room at 2:00 a.m. with nausea, vomiting, diarrhea, tremors, tachycardia and feeling like he is going to alcohol draw. Additionally he has wheezing and short of breath. He has no chest pain. He denies abdominal pain. Patient reports to me that he thinks he is going to worsening alcohol draw and that he may be dehydrated and additionally short of breath with wheezing. He states that he had TWO 40s prior to coming in today as well as smoke tobacco. Past Medical History: Alcoholism, recent alcohol draw, COPD, hypertension, morbid obesity, anxiety, chronic nausea vomiting diarrhea Past Surgical History: No recent surgery Social History: Daily alcohol use. Family History: Noncontributory ROS REVIEW OF SYSTEMS: A comprehensive 10 point review of systems is otherwise negative aside from elements mentioned in the history of present illness. Exam Constitutional smells of alcohol, triage nursing summary reviewed, vital signs reviewed, awake/alert. Vital signs are noted at triage to be tachycardic. Hypoxic. Eyes normal conjunctivae and sclera, EOMI, PERRLA. HENT normal inspection, atraumatic, moist mucus membranes, no epistaxis, neck supple/ no meningismus, no raccoon eyes. Respiratory mild tachypnea, decreased breath sounds bilaterally with wheezing Cardiovascular tachycardic, regular rhythm, no murmur, no edema, distal pulses normal. Gastrointestinal soft, non-tender, no rebound, no guarding, normal bowel sounds, no distension, no pulsatile mass. Genitourinary no CVA tenderness. Musculoskeletal no midline vertebral tenderness, full range of motion, no calf swelling, no tenderness of extremities, no meningismus, good pulses, neurovascularly intact. Skin pink, warm, & dry, no rash, skin atraumatic. Neurologic smells of alcohol awake, alert and oriented x 3, AAOx3, moves all 4 extremities equally, motor intact, sensory intact, CN II-XII intact, normal cerebellar, normal vision, normal speech. Psychiatric normal mood/affect. Heme/Lymph/Immune no lymphadenopathy. Differential Diagnosis: Includes but is not limited to in a particular order acute alcohol intoxication, alcohol withdrawal, dehydration, electrolyte disturbance, COPD exacerbation, pneumonia, electrolyte disturbance Medical Decision Making: Plan for this patient IV establishment full cardiac exercise physiologist, IV Ativan for alcohol draw, check serum alcohol level, check electrolytes, DuoNeb breathing treatment, chest x-ray to rule out pneumonia and re-evaluate. Re-evaluation: 0313: Patient is feeling better after IV fluids and Ativan. Blood work has been reviewed and noted to be hypokalemia. Vital signs reviewed and are improved. He was initially hypoxic when he arrived here tachycardic. Patient's potassium noted be low. I have ordered him p.o. replacement. Additionally he appears to be going through alcohol withdrawal will admit back to the hospital service for alcohol draw, dehydration, electrolyte disturbance. Patient has agreed to stay. He understands he should not leave against medical advice. Chest x-ray reviewed. Lungs. COPD. No focal pneumonia. EKG reviewed sinus tachycardia. Time of EKG 2:20 a.m., sinus tachycardia rate of 109. I do not appreciate acute ischemia. 0317AM: Dr. Patricio Agrees to Admit. Source: Patient - Personal History Current Tetanus/Diphtheria Vaccine: Unsure Current Tetanus Diphtheria and Acellular Pertussis (TDAP): Unsure Tetanus Vaccine Date: < 10 YEARS - Medical/Surgical History Hx Asthma: Yes Hx Chronic Respiratory Disease: No Hx Diabetes: No Hx Cardiac Disease: Yes Hx Renal Disease: No Hx Cirrhosis: Yes Hx Alcoholism: Yes Hx HIV/AIDS: No Hx Splenectomy or Spleen Trauma: No Other PMH: MEDICAL- ANXIETY, LIVER DISEASE, ASCITES, IVDA, HEP C+, alcohol and drug abuse/MENTAL HEALTH, htn,cirrohsis, hx of 3 ruptured discs/back surgs/ tonsillectomy, - Social History Smoking Status: Heavy smoker Constitutional: Initial Vital Signs Temperature (C) 36.6 C 08/19/17 01:33 Heart Rate 121 H 08/19/17 01:33 Respiratory Rate 24 H 08/19/17 01:33 Blood Pressure 107/84 H 08/19/17 01:33 O2 Sat (%) 88 L 08/19/17 01:33 O2 Delivery Mode Nasal Cannula O2 (L/minute) 2 Allergies/Adverse Reactions: levofloxacin [From Levaquin] Allergy (Severe, Verified 08/16/17 07:17) tendinopathy lisinopril Allergy (Verified 08/16/17 07:17) Home Medications: Medication Instructions Recorded Sertraline HCl [Zoloft 100mg (*)] 100 mg PO DAILY 06/29/16 Amlodipine Besylate [Norvasc] 10 mg PO DAILY 01/25/17 Chlorthalidone [Chlorthalidone 25 25 mg PO BID 01/25/17 mg (*)] Labetalol HCl [Trandate 100 mg (*)] 100 mg PO BID 08/16/17 Ibuprofen [Motrin (*)] 600 mg PO TID PRN 08/19/17 Medical Decision Making - Data Points Laboratory Results: Laboratory Results 08/19/17 02:14 08/19/17 02:14 Medications Given: Chlordiazepoxide HCl (Librium) 25 - 50 mg PO Q4HRS PRN PRN Reason: Agitation Stop: 02/15/18 05:41 Last Admin: 08/19/17 21:44 Dose: 25 mg Chlorthalidone (Chlorthalidone) 25 mg PO BID [facility] Stop: 02/15/18 20:59 Last Admin: 08/19/17 21:44 Dose: 25 mg Famotidine/Sodium Chloride (Pepcid 20 Mg (Premix)) 50 mls @ 200 mls/hr IV Q12HRS [facility] Stop: 02/15/18 08:59 Last Admin: 08/19/17 21:44 Dose: 50 mls Thiamine HCl 500 mg/ Sodium (Chloride) 105 mls @ 210 mls/hr IV DAILY [facility] Stop: 08/22/17 06:29 Last Admin: 08/19/17 06:30 Dose: 105 mls Labetalol HCl (Trandate) 100 mg PO BID [facility] Stop: 02/15/18 20:59 Last Admin: 08/19/17 21:47 Dose: 100 mg Lorazepam (Ativan Injection) 1 mg IVP Q4HRS PRN PRN Reason: Agitation Stop: 02/15/18 04:23 Last Admin: 08/19/17 22:01 Dose: 1 mg Methylprednisolone Sodium Succinate (Solu-Medrol) 60 mg IVP DAILY [facility] Stop: 02/15/18 05:59 Last Admin: 08/19/17 08:49 Dose: Not Given Sertraline HCl (Zoloft) 100 mg PO DAILY [facility] Stop: 02/15/18 11:59 Last Admin: 08/19/17 12:19 Dose: 100 mg Discontinued Medications Albuterol/Ipratropium (Duoneb) 3 ml IH EDNOW ONE Stop: 08/19/17 01:54 Last Admin: 08/19/17 02:30 Dose: 3 ml Chlordiazepoxide HCl (Librium) 50 mg PO ONCE ONE Stop: 08/19/17 05:43 Last Admin: 08/19/17 06:31 Dose: 50 mg Furosemide (Lasix Injection) 20 mg IVP ONCE ONE Stop: 08/19/17 05:55 Last Admin: 08/19/17 06:31 Dose: 20 mg Sodium Chloride (Ns) 1,000 mls @ 0 mls/hr IV EDNOW ONE; Wide Open PRN Reason: Protocol Stop: 08/19/17 01:53 Last Admin: 08/19/17 02:15 Dose: 1,000 mls Magnesium Sulfate/Dextrose (Magnesium Sulf 1 Gm (Premix)) 100 mls @ 100 mls/hr IV ONCE ONE Stop: 08/19/17 11:00 Last Admin: 08/19/17 10:25 Dose: 100 mls Cefepime HCl 2 gm/ Dextrose 100 mls @ 200 mls/hr IV Q12HRS [facility] PRN Reason: Protocol Stop: 09/18/17 15:12 Last Admin: 08/19/17 15:31 Dose: Not Given Lorazepam (Ativan Injection) 1 mg IVP EDNOW ONE Stop: 08/19/17 01:55 Last Admin: 08/19/17 02:30 Dose: 1 mg Potassium Chloride (Potassium Chloride Oral Liquid) 60 meq PO EDNOW ONE Stop: 08/19/17 02:48 Last Admin: 08/19/17 05:58 Dose: Not Given Potassium Chloride (Klor-Con) 60 meq PO EDNOW ONE Stop: 08/19/17 02:57 Last Admin: 08/19/17 02:59 Dose: 60 meq Potassium Chloride (Klor-Con) 10 - 40 meq PO ONCE ONE PRN Reason: Protocol Stop: 08/19/17 10:02 Last Admin: 08/19/17 10:25 Dose: 40 meq Departure - Departure Disposition: [facility] Acute Clinical Impression: Hypokalemia Alcohol withdrawal Qualifiers: Complication of substance-induced condition: uncomplicated Qualified Code(s): F10.230 - Alcohol dependence with withdrawal, uncomplicated
[2017-08-19] MEDS ORDERED: NS 1,000 ML IV ONE (01:52)
[2017-08-19] MEDS ORDERED: IPRATROPIUM/ALBUTEROL 3 ML DEYVIAL IH ONE (01:53)
[2017-08-19] MEDS ORDERED: LORazepam 2 MG/ML INJ IVP ONE (01:54)
--- NOTE | 2017-08-19 02:21 | CPEKG ---
Heart Rate: 109 RR Interval: 550 P-R Interval: 148 QRSD Interval: 90 QT Interval: 356 QTC Interval: 480 P [place]: 53 QRS [place]: 66 T Wave [place]: 55 EKG Severity - BORDERLINE ECG - EKG Impression: SINUS TACHYCARDIA EKG Impression: PROBABLE LEFT ATRIAL ABNORMALITY EKG Impression: BORDERLINE PROLONGED QT INTERVAL Electronically Signed By: Esa Love 19-Aug-2017 07:09:57
[2017-08-19 02:22] LABS: % IMMATURE GRANULYOCYTES 0.5 % (0.0-1.1); ABSOLUTE IMMATURE GRANULOCYTES 0.05 10^3/uL (0.00-0.10); ADD DIFF? NO; ADD MORPH? NO; ADD SCAN? NO; ATYPICAL LYMPHOCYTE FLAG 10 (0-99); FRAGMENT RBC FLAG 0 (0-99); HEMATOCRIT 45.7 % (40.0-51.0); HEMOGLOBIN 16.3 g/dL (13.7-17.5); LEFT SHIFT FLG 0 (0-99); LIPEMIA HEMOLYSIS FLAG 90 (0-99); MEAN CELL HEMOGLOBIN CONCENTR. 35.7 g/dL (32.4-36.7); MEAN CELL VOLUME 89.6 fL (81.5-99.8); MEAN PLATELET VOLUME 9.4 fL (8.7-11.7); PLATELET CLUMPS FLAG 10 (0-99); PLATELET COUNT 249 10^3/uL (150-400); RED CELL DISTRIBUTION WIDTH 13.2 % (11.5-15.2)
[2017-08-19 02:31] LABS: INR 0.96 (0.83-1.16); PROTIME(PATIENT) 12.7 SEC (12.0-15.0)
[2017-08-19 02:32] LABS: APTT 24.1 SEC (23.0-38.0)
[2017-08-19 02:35] LABS: ALANINE AMINOTRANSFERASE 58 IU/L (21-72); ALBUMIN 4.2 g/dL (3.5-5.0); ALKALINE PHOSPHATASE 95 IU/L (38-126); ANION GAP 18 mEq/L (8-16); ASPARTATE AMINOTRANSFERASE 53 IU/L (17-59); BILIRUBIN,TOTAL 0.7 mg/dL (0.1-1.4); BILIRUBIN-CONJUGATED 0.3 mg/dL (0.0-0.5); BILIRUBIN-UNCONJUGATED 0.4 mg/dL (0.0-1.1); CALCIUM 9.3 mg/dL (8.5-10.4); CARBON DIOXIDE 25 mEq/l (22-31); CHLORIDE 96 mEq/L (97-110); CREATININE 0.8 mg/dL (0.7-1.3); ETHANOL SERUM 87 mg/dL (0-10); GLOMERULAR FILTRATION RATE > 60; GLUCOSE 107 mg/dL (70-100); MAGNESIUM 1.8 mg/dL (1.6-2.3); SODIUM 139 mEq/L (134-144); TOTAL PROTEIN 7.2 g/dL (6.3-8.2)
[2017-08-19 02:47] LABS: CK-MB INTERPRETATION NEGATIVE (NEGATIVE); CREATINE KINASE-MB FRACTION 2.69 ng/mL (0.00-3.19); TROPONIN I < 0.012 ng/mL (0.000-0.034)
[2017-08-19] MEDS ORDERED: POTASSIUM CL 20 MEQ/15 ML UDCUP PO ONE (02:47)
[2017-08-19] MEDS ORDERED: POTASSIUM CL 20 MEQ TAB ONE (02:55)
[2017-08-19] MEDS ORDERED: POTASSIUM CL 20 MEQ TAB PO ONE (02:56)
[2017-08-19] MEDS ORDERED: oxyCODONE IR 5 MG TAB PO PRN (04:10)
[2017-08-19] MEDS ORDERED: PROMETHAZINE HCL 25 MG/ML INJ IVP PRN (04:10)
[2017-08-19] MEDS ORDERED: ONDANSETRON 4 MG/2 ML VIAL IVP PRN (04:10)
[2017-08-19] MEDS ORDERED: NS 1,000 ML IV SCH (04:15)
[2017-08-19] MEDS ORDERED: LORazepam 2 MG/ML INJ ONE (04:28)
[2017-08-19] MEDS: LORazepam 2 MG/ML INJ IVP PRN ×5 (04:31→22:01)
[2017-08-19] MEDS ORDERED: chlordiazePOXIDE 25 MG CAP PO ONE (05:42)
[2017-08-19] MEDS ORDERED: FUROSEMIDE 20 MG/2 ML VIAL IVP ONE (05:54)
[2017-08-19] MEDS ORDERED: ALBUTEROL 3 ML DEYVIAL IH PRN (05:55)
[2017-08-19] MEDS ORDERED: IPRATROPIUM/ALBUTEROL 3 ML DEYVIAL IH PRN (05:55)
[2017-08-19] MEDS ORDERED: PROTOCOL MAGNESIUM 1 DOSE IV PRN (06:27)
[2017-08-19] MEDS ORDERED: PROTOCOL POTASSIUM 1 DOSE MISC PRN (06:27)
[2017-08-19] MEDS: THIAMINE HCL 500 MG in NS 100 ML IV SCH (06:30)
[2017-08-19] MEDS: methylPREDNISolone SOD SUCC 125 MG/2 ML VIAL IVP SCH ×2 (06:31→08:49)
[2017-08-19] MEDS: FAMOTIDINE 20 MG/NACL 50 ML IV SCH ×2 (08:32→21:44)
[2017-08-19 08:56] LABS: MAGNESIUM 1.8 mg/dL (1.6-2.3); POTASSIUM 4.2 mEq/L (3.5-5.2)
[2017-08-19] MEDS ORDERED: ENOXAPARIN 40 MG/0.4 ML SYR SC SCH (09:00)
[2017-08-19 09:54] LABS: MAGNESIUM 1.7 mg/dL (1.6-2.3); POTASSIUM 3.1 mEq/L (3.5-5.2)
[2017-08-19] MEDS ORDERED: POTASSIUM CL 10 MEQ TAB PO ONE (10:01)
[2017-08-19] MEDS ORDERED: MAGNESIUM SULF 1 GM/DEXTROSE 100 ML IV ONE (10:01)
--- NOTE | 2017-08-19 10:06 | GHP ---
[f rep st] HISTORY AND PHYSICAL DATE OF ADMISSION: 08/19/2017 The patient's PCP is not listed. HISTORY OF PRESENT ILLNESS: This is a 62-year-old gentleman with a past medical history significant for COPD, schizoaffective disorder, severe anxiety, alcohol abuse, a history of HCV, cirrhosis, hyper tension, and morbid obesity, who presents to the emergency department again after leaving AMA earlier yesterday. The patient had been admitted for significant alcohol withdrawal and a COPD exacerbation . However, for unknown reasons, he left earlier in the day. When asked further, the patient states that he has struggled with his schizoaffective disorder, felt significantly anxious, and felt like he had to leave. Apparently, the patient had gone home via taxi. He reports that he had persistent na usea, vomiting, and diarrhea, and left a mess in the taxi. He also stopped at his bank at some point during the day and reports that he had incontinence of his bowels there as well. He is reporting in creasing shortness of breath and wheezing. He denies any fevers or chills. He reports some nausea a nd vomiting, without hematemesis. He does report bloody stool since leaving the hospital. The patie nt denies any lightheadedness, chest pain, or palpitations. Overall, he states that he is feeling ve ry weak, and does want to stay and get better. Patient without any immediate plans or desire to leav e the hospital this time. The patient does admit that he drank two 40-ounce beers prior to his arriv al back at the hospital. REVIEW OF SYSTEMS: Negative except as noted above with the exception of lower extremity edema. The patient reports that this has increased slightly. ALLERGIES: Lisinopril and levofloxacin. HOME MEDICATIONS: Zoloft 100 daily, loperamide 2 mg p.o. daily p.r.n., labetalol 100 mg p.o. b.i.d., chlorthalidone 25 mg p.o. b.i.d., amlodipine 10 mg p.o. daily. I am unsure if the patient is on any additional medications for his psychiatric illness. PAST MEDICAL HISTORY: Significant for COPD, history of recurrent pneumonia, hypertension, morbid obe sity, BMI currently 31.7, schizoaffective disorder, anxiety disorder, alcohol abuse, HCV, history of IV drug use, cirrhosis, and ascites. PAST SURGICAL HISTORY: Significant for laminectomy, tonsillectomy, and adenoidectomy. FAMILY HISTORY: Significant for a father with colon cancer. SOCIAL HISTORY: The patient drinks eight 40-ounce beers on a daily basis. He lives alone. He does have a home. He does have home care, but his home is quite disheveled, as is the patient's habitus. The patient also is a heavy smoker, but he cannot quantify. CODE STATUS: DNR/DNI per the patient. PHYSICAL EXAMINATION: VITAL SIGNS: Upon arrival to the emergency department: Blood pressure 107/84 , heart rate 121, respiratory rate 24, O2 sat 88% on room air, temperature 36.6. Vitals in the ICU: Blood pressure 128/87, heart rate 105, CO2 91% on 3 L by nasal cannula. GENERAL: No acute distress . The patient appears older than his stated age. He is quite disheveled, but he is awake and juan ative. HEAD: Normocephalic, atraumatic. EYES: Extraocular muscles are intact. Pupils equal and r ound, with slightly decreased reactivity bilaterally, but symmetric. No scleral icterus or conjuncti gloria injection. ENT: Mucous membranes appear dry. No oropharyngeal erythema. Dentition in fair con dition. NECK: Supple. Trachea midline. CV: slightly tachycardic in the 100s. No murmurs, rubs, or gallops appreciated. The heart sounds are slightly distant secondary to body habitus. RESPIRATOR Y: Unlabored breathing. Patient with diffuse wheezing. When he does move around, the patient does develop some increased labored breathing, but in no acute distress. Diminished breath sounds at the bases. ABDOMEN: Obese. Soft and nontender to palpation. No rebound, guarding, or masses appreciat ed. : No Gaines in place. No suprapubic tenderness to palpation. EXTREMITIES: Patient with 2+ p itting edema in the bilateral lower extremities to the mid lower leg. Patient with 1+ pedal pulses, limited secondary to edema. NEUROLOGIC: Cranial nerves 2 through 12 intact and symmetric bilaterall y. The patient is awake, alert, and oriented to person and place. He is overall a poor historian, w ith some difficulties with memory versus difficulties in communication related to his severe anxiety and schizoaffective disorder. LABORATORY STUDIES: WBC is 9.62, H and H 16.3 and 45.7, MCV 89.6, and platelet count is 249; no band s. PT is 12.7, INR 0.96, and PTT is 24.1. Sodium is 139, potassium 3.0, chloride 96, CO2 25, anion gap 18, BUN 5, creatinine 0.8, GFR greater than 60, glucose 107, calcium 9.3, magnesium 1.8, total bi li 0.7, ALT 58, AST 53, alk phos 95. CK is 244. CK-MB is 2.69. Troponin is negative. BTNP is 144. Total protein 7.2, albumin 4.2, lipase 285. Ethyl alcohol level is 87. EKG reviewed myself shows sinus tachycardia in the 100s and borderline prolonged QT at 480. Chest x-ray image report reviewed and showing increased basilar consolidation on the left. The right is somewhat improved. Possibly worsening pneumonia. ASSESSMENT AND PLAN: A 62-year-old gentleman with a history of schizoaffective disorder, severe anxi ety, alcohol dependence, chronic obstructive pulmonary disease, cirrhosis, and debility, who presents to the emergency department with complaints of nausea, vomiting, diarrhea, and shortness of breath. 1. Alcohol withdrawal. The patient will be placed on CIWA. He will be admitted to the step-down it for close monitoring. Ativan will be available p.r.n. 2. Chronic obstructive pulmonary disease with exacerbation. The patient will have nebs, steroids, a nd oxygen supplementation. 3. Hypokalemia, likely related to the patient's nausea, vomiting, and diarrhea. Replacement protoco l has been ordered. We will monitor closely, especially while the patient will be given Lasix. 4. Left lower lobe pneumonia. The patient has been in the hospital multiple times and has an ALLERG Y TO LEVAQUIN. We will place the patient on cefepime. Low suspicion for need for MRSA coverage at t his time. 5. Nausea, vomiting, and diarrhea. Patient without any episodes since arrival to the emergency depa rtment. We will plan to monitor closely number. 6. Report of rectal bleeding. The patient has not had any further episodes of diarrhea since arriva l, but we will check for stool guaiac. His H and H are stable, and his coags are within normal limit s. 7. Anion gap, likely related to the patient's nausea, vomiting, diarrhea, and respiratory status. W e will actually diurese the patient, as he appears to be third spacing at this time and repeat the BM P. 8. Failure to thrive. The patient is quite noncompliant. PT/OT will be consulted. May need placem ent. However, the patient appears to have refused this previously. 9. Benign essential hypertension. Blood pressure is acceptable at this time. Continue to monitor. 10. Schizoaffective disorder. Resume the patient's home medications. I reassured the patient if he is struggling with his mental health, he needs to let the staff know, and we can address that before trying to leave. 11. Cirrhosis. No evidence of coagulopathy. The patient continues to drink. 12. Edema secondary to cirrhosis. The patient will be receiving some Lasix in the emergency departm ent. He has been in the hospital for several days receiving IV fluids and likely now with a positive balance. 13. Debility. PT/OT has been consulted. Again, the patient previously refused any consideration fo r a SNF. 14. Fluid, electrolytes, and nutrition. Saline lock IV. The patient can eat a low-sodium, low-salt cardiac diet. Diuresis. 15. Prophylaxis with SCDs. Holding anticoagulation pending further evaluation of the patient's comp laint of rectal bleeding. 16. Code status is DNR/DNI. 17. Disposition: The patient is admitted to inpatient status on the SDU for close monitoring of CIW A scores. /[id number]/MODL
--- NOTE | 2017-08-19 10:35 | PDMN ---
Medical Necessity Medical necessity: C/M review: est. > 2 MN LOS for eval and TX of acute and persistent alcohol withdrawal, COPD exacerbation, hypokalemia, left lower lobe pneumonia, nausea, vomiting, diarrhea, report of rectal bleeding, anion gap, failure to thrive, requiring ongoing CIWA protocol, cardiac monitoring, pulse oximetry, supplemental O2, IV Thiamine, IV Steroids, nebs, electrolyte replacement protocol, acute inpt PT/OT in SDU, comorbid schizoaffective disorder , noncompliance, alcohol dependence, debility, benign hypertension, severe anxiety, cirrhosis, edema secondary to cirrhosis per H/P.
[2017-08-19] MEDS: SERTRALINE HCL 100 MG TAB PO SCH (12:19)
[2017-08-19 12:29] LABS: HEMATOCRIT 46.2 % (40.0-51.0); HEMOGLOBIN 16.4 g/dL (13.7-17.5)
[2017-08-19] MEDS ORDERED: CEFEPIME HCL 2 GM in D5W 100 ML IV SCH (15:13)
--- NOTE | 2017-08-19 15:38 | HOSPPROG ---
Hospitalist Progress Note Assessment/Plan: cxr- no pneumonia- no abx low CIWA- to floor Objective: Vital Signs Temp Pulse Resp BP Pulse Ox 37.0 C 92 23 H 102/84 H 92 08/19/17 11:34 08/19/17 11:34 08/19/17 11:34 08/19/17 11:34 08/19/17 11:34 Laboratory Results 08/19/17 12:10 08/19/17 09:30 08/18/17 08/19/17 08/20/17 05:59 05:59 05:59 Intake Total 1220 480 Output Total 1450 Balance 1220 -970 PT 12.7 SEC (12.0-15.0) 08/19/17 02:14 INR 0.96 (0.83-1.16) 08/19/17 02:14 ICD10 Worksheet Patient Problems: Problems Problem Status Onset Alcohol withdrawal Acute Hypokalemia Acute RANDAL (acute kidney injury) Acute Alcohol intoxication Acute Alcoholism Acute Anxiety Acute Bilateral ankle pain Acute Bilateral knee pain Acute COPD exacerbation Acute Chronic alcoholism Acute Chronic obstructive pulmonary disease with acute exacerbation Acute Diarrhea Acute Elevated bilirubin Acute Gravely disabled Acute Hand edema Acute Hyponatremia Acute Hypoxia Acute Lactic acidosis Acute Leg edema Acute Leukocytosis Acute Leukocytosis Acute Nausea vomiting and diarrhea Acute Pneumonia Acute Pneumonia Acute Schizoaffective disorder, bipolar type Acute
[2017-08-19 18:29] LABS: POTASSIUM 4.9 mEq/L (3.5-5.2)
--- NOTE | 2017-08-19 18:47 | ASMTCMCOM ---
CM Note CM Note Notes: Reviewed chart regarding discharge plan, pt's progress. Pt admitted (after leaving AMA Monday08/18/17) w/ ETOH w/d, COPD exacerbation, FTT, rectal bleeding, hyperkalemia, anxiety, tachycardia. Pt w/ extensive medical hx, including anxiety, schizoaffective disorder, ETOH abuse, IV drug use. Pt lives independently. Discharge needs and plan remain TBD at this time. CM will cont to follow. Current Dischare Plan: TBD Date Signed: 08/19/2017 06:46 PM Electronically Signed By:Cheryl Almonte RN
[2017-08-19] MEDS: chlordiazePOXIDE 25 MG CAP PO PRN (21:44)
[2017-08-19] MEDS: CHLORTHALIDONE 25 MG TAB PO SCH (21:44)
[2017-08-19] MEDS: LABETALOL HCL 100 MG TAB PO SCH (21:47)
[2017-08-20] MEDS: chlordiazePOXIDE 25 MG CAP PO PRN ×4 (04:54→20:39)
[2017-08-20 05:16] LABS: ALANINE AMINOTRANSFERASE 49 IU/L (21-72); ALBUMIN 3.7 g/dL (3.5-5.0); ALKALINE PHOSPHATASE 83 IU/L (38-126); ANION GAP 10 mEq/L (8-16); ASPARTATE AMINOTRANSFERASE 40 IU/L (17-59); BILIRUBIN,TOTAL 0.6 mg/dL (0.1-1.4); CALCIUM 9.3 mg/dL (8.5-10.4); CARBON DIOXIDE 31 mEq/l (22-31); CHLORIDE 96 mEq/L (97-110); CREATININE 0.7 mg/dL (0.7-1.3); GLOMERULAR FILTRATION RATE > 60; GLUCOSE 171 mg/dL (70-100); MAGNESIUM 2.1 mg/dL (1.6-2.3); POTASSIUM 3.2 mEq/L (3.5-5.2); SODIUM 137 mEq/L (134-144); TOTAL PROTEIN 6.4 g/dL (6.3-8.2)
[2017-08-20] MEDS ORDERED: POTASSIUM CL 10 MEQ TAB PO ONE (06:51)
[2017-08-20 07:40] VITALS: TEMP 97.5
[2017-08-20] MEDS: LABETALOL HCL 100 MG TAB PO SCH ×2 (08:12→20:01)
[2017-08-20] MEDS: amLODIPine BESYLATE 5 MG TAB PO SCH (08:13)
[2017-08-20] MEDS: CHLORTHALIDONE 25 MG TAB PO SCH ×2 (08:13→20:00)
[2017-08-20] MEDS: SERTRALINE HCL 100 MG TAB PO SCH (08:14)
[2017-08-20] MEDS: methylPREDNISolone SOD SUCC 125 MG/2 ML VIAL IVP SCH (08:14)
--- NOTE | 2017-08-20 11:29 | HOSPPROG ---
Hospitalist Progress Note Assessment/Plan: 62 yo M w alcoholism a/w weakness, wheezing, withdrawal alcohol withdrawal: improving change benzos to po copd exacerbation: improving change steroids to po add combivent weakness: pt/ot consults advised patient to participate fully proph: add lmwh hypoK; daily PO K hypomagnesemia: daily po mag back pain: scheduled ibuprofen and tylenol dispo: inpatient Subjective: refusing PT. case d/w dr joe re: copd management Objective: Vital Signs Temp Pulse Resp BP Pulse Ox 36.4 C 89 16 110/70 95 08/20/17 07:39 08/20/17 08:12 08/20/17 07:39 08/20/17 08:13 08/20/17 07:39 Laboratory Results 08/19/17 12:10 08/20/17 04:50 08/19/17 08/20/17 08/21/17 05:59 05:59 05:59 Intake Total 1220 1515 360 Output Total 1750 Balance 1220 -235 360 PT 12.7 SEC (12.0-15.0) 08/19/17 02:14 INR 0.96 (0.83-1.16) 08/19/17 02:14 - Physical Exam Constitutional: no apparent distress, unkempt Eyes: PERRL, anicteric sclera Ears, Nose, Mouth, Throat: moist mucous membranes, hearing normal Cardiovascular: regular rate and rhythym, no murmur, rub, or gallop Respiratory: other (rhoncorous b/l; good air movement, minimal wheeze) Gastrointestinal: normoactive bowel sounds, soft, non-tender abdomen Genitourinary: no bladder fullness, No lopez in urethra Skin: warm, normal color ICD10 Worksheet Patient Problems: Problems Problem Status Onset Alcohol withdrawal Acute Hypokalemia Acute RANDAL (acute kidney injury) Acute Alcohol intoxication Acute Alcoholism Acute Anxiety Acute Bilateral ankle pain Acute Bilateral knee pain Acute COPD exacerbation Acute Chronic alcoholism Acute Chronic obstructive pulmonary disease with acute exacerbation Acute Diarrhea Acute Elevated bilirubin Acute Gravely disabled Acute Hand edema Acute Hyponatremia Acute Hypoxia Acute Lactic acidosis Acute Leg edema Acute Leukocytosis Acute Leukocytosis Acute Nausea vomiting and diarrhea Acute Pneumonia Acute Pneumonia Acute Schizoaffective disorder, bipolar type Acute
[2017-08-20] MEDS: THIAMINE HCL 500 MG in NS 100 ML IV SCH (11:54)
[2017-08-20] MEDS: FAMOTIDINE 20 MG/NACL 50 ML IV SCH (11:54)
[2017-08-20] MEDS ORDERED: IPRATROPIUM/ALBUTEROL 4GM MDI IH SCH (12:00)
[2017-08-20] MEDS: IPRATROPIUM/ALBUTEROL 3 ML DEYVIAL IH SCH ×3 (12:02→20:14)
[2017-08-20] MEDS: ACETAMINOPHEN 500 MG TAB PO SCH ×3 (12:19→22:42)
[2017-08-20] MEDS: IBUPROFEN 200 MG TAB PO SCH ×2 (12:20→19:58)
[2017-08-20] MEDS: LORazepam 1 MG TAB PO PRN ×2 (13:22→20:00)
[2017-08-20] MEDS: NICOTINE 21 MG/24 HR PATCH TD SCH (15:46)
[2017-08-20] MEDS: oxyCODONE IR 5 MG TAB PO PRN ×2 (16:15→20:39)
[2017-08-21] MEDS: oxyCODONE IR 5 MG TAB PO PRN (00:27)
[2017-08-21] MEDS: ACETAMINOPHEN 500 MG TAB PO SCH ×2 (00:28→05:46)
[2017-08-21] MEDS: LORazepam 1 MG TAB PO PRN (00:29)
[2017-08-21] MEDS: IBUPROFEN 200 MG TAB PO SCH ×3 (00:29→11:38)
[2017-08-21] MEDS: IPRATROPIUM/ALBUTEROL 3 ML DEYVIAL IH SCH ×2 (05:37→10:50)
[2017-08-21 05:50] LABS: ALANINE AMINOTRANSFERASE 52 IU/L (21-72); ALBUMIN 3.3 g/dL (3.5-5.0); ALKALINE PHOSPHATASE 87 IU/L (38-126); ANION GAP 8 mEq/L (8-16); ASPARTATE AMINOTRANSFERASE 33 IU/L (17-59); BILIRUBIN,TOTAL 0.3 mg/dL (0.1-1.4); CALCIUM 8.8 mg/dL (8.5-10.4); CARBON DIOXIDE 34 mEq/l (22-31); CHLORIDE 95 mEq/L (97-110); CREATININE 0.8 mg/dL (0.7-1.3); GLOMERULAR FILTRATION RATE > 60; GLUCOSE 135 mg/dL (70-100); POTASSIUM 3.2 mEq/L (3.5-5.2); SODIUM 137 mEq/L (134-144); TOTAL PROTEIN 5.9 g/dL (6.3-8.2)
[2017-08-21 08:38] VITALS: PULSE 73; RESP 12; O2SAT 94
[2017-08-21] MEDS ORDERED: predniSONE 20 MG TAB PO SCH (09:00)
[2017-08-21] MEDS ORDERED: POTASSIUM CL 20 MEQ PKT PO SCH (09:00)
[2017-08-21] MEDS ORDERED: MAGNESIUM OXIDE 400 MG TAB PO SCH (09:00)
[2017-08-21] MEDS: CHLORTHALIDONE 25 MG TAB PO SCH (09:14)
[2017-08-21] MEDS: SERTRALINE HCL 100 MG TAB PO SCH (09:14)
[2017-08-21] MEDS: amLODIPine BESYLATE 5 MG TAB PO SCH (09:15)
[2017-08-21] MEDS: LABETALOL HCL 100 MG TAB PO SCH (09:15)
[2017-08-21] MEDS: NICOTINE 21 MG/24 HR PATCH TD SCH (09:23)
[2017-08-21 09:24] VITALS: BP 107/81
--- NOTE | 2017-08-21 13:12 | HOSPPROG ---
Hospitalist Progress Note Assessment/Plan: 62 yo M w alcoholism a/w weakness, wheezing, withdrawal alcohol withdrawal: improving change benzos to po copd exacerbation: improving duonebs on dc 5 day course of steroids weakness: pt/ot consults advised patient to participate fully PT rec SNF, he is refusing he does have capacity to make this decision proph: add lmwh hypoK; daily PO K hypomagnesemia: daily po mag back pain: scheduled ibuprofen and tylenol dispo: home today > 30 minutes Subjective: PT rec SNF. refusing; asking to be discharged today Objective: Vital Signs Temp Pulse Resp BP Pulse Ox 36.4 C 73 12 107/81 H 94 08/21/17 08:00 08/21/17 08:00 08/21/17 08:00 08/21/17 09:15 08/21/17 08:00 Laboratory Results 08/19/17 12:10 08/21/17 05:14 08/20/17 08/21/17 08/22/17 05:59 05:59 05:59 Intake Total 1515 1660 Output Total 1750 500 Balance -235 1160 PT 12.7 SEC (12.0-15.0) 08/19/17 02:14 INR 0.96 (0.83-1.16) 08/19/17 02:14 - Physical Exam Constitutional: no apparent distress, appears nourished, chronically ill appearing Eyes: PERRL, anicteric sclera Ears, Nose, Mouth, Throat: moist mucous membranes, hearing normal Cardiovascular: regular rate and rhythym, no murmur, rub, or gallop Respiratory: no respiratory distress, expiratory wheeze Gastrointestinal: normoactive bowel sounds, soft, non-tender abdomen Genitourinary: No lopez in urethra Skin: warm, normal color Musculoskeletal: full muscle strength, no muscle tenderness Neurologic: AAOx3 ICD10 Worksheet Patient Problems: Problems Problem Status Onset Alcohol withdrawal Acute Hypokalemia Acute RANDAL (acute kidney injury) Acute Alcohol intoxication Acute Alcoholism Acute Anxiety Acute Bilateral ankle pain Acute Bilateral knee pain Acute COPD exacerbation Acute Chronic alcoholism Acute Chronic obstructive pulmonary disease with acute exacerbation Acute Diarrhea Acute Elevated bilirubin Acute Gravely disabled Acute Hand edema Acute Hyponatremia Acute Hypoxia Acute Lactic acidosis Acute Leg edema Acute Leukocytosis Acute Leukocytosis Acute Nausea vomiting and diarrhea Acute Pneumonia Acute Pneumonia Acute Schizoaffective disorder, bipolar type Acute
--- NOTE | 2017-08-21 14:26 | GDS ---
[f rep st] DISCHARGE SUMMARY DISCHARGE DIAGNOSES: 1. Chronic obstructive pulmonary disease with exacerbation. 2. Alcoholism with mild withdrawal. 3. Hypertension. 4. Medical noncompliance. 5. Alcohol dependence. 6. Schizoaffective disorder. 7. Anxiety disorder. 8. History of hepatitis C. 9. History of IV drug use. HOSPITAL COURSE: Please see admission history and physical by Dr. Jane Patricio. The patient presented on the evening of the . He had actually just been hospitalized with alcoho l withdrawal pneumonia. He left against medical advice. He returns today for hospitalization. The patient had done well. His chest x-ray was reviewed and antibiotics were not felt necessary. He was given Solu-Medrol and then oral steroids. He was not hypoxic with ambulation. He was given tanya roids and a nebulizer machine for home. He was seen by PT and recommended for usp facility which he refused. Discussions and dis position made him somewhat anxious and he abruptly called his caregiver to come pick him up and he wa s discharged. This is not against medical advice. /[id number]/MODL
--- NOTE | 2017-08-22 11:46 | ASDISCHSUM ---
Discharge Information Plan Status:Home with Home Health Medically Cleared to Leave:08/20/2017 Discharge Date:08/21/2017 01:39 PM CM D/C Disposition:Home Health Service ADT D/C Disposition:Home, Routine, Self-Care Projected Discharge Date:08/21/2017 01:00 PM Transportation at D/C:Friend Discharge Delay Reason: Follow-Up Date:08/21/2017 01:00 PM Discharge Slot: Final Diagnosis:COPD exascerbation, ETOH W/D, HTN Placement Information Patient Contact Information Contact Name:SCOTTCESAR Relationship: Address: Home Phone: Work Phone: City: Alternate Phone: State/[place] Code: Email: Financial Information Financial Class: Primary Plan Desc:[employer] [place] Primary Plan Number:[id number] Secondary Plan Desc: Secondary Plan Number: Assessment Information [facility] CM Progress Note CM Note CM Note Notes: Reviewed chart regarding discharge plan, pt's progress. Pt admitted (after leaving AMA Monday08/18/17) w/ ETOH w/d, COPD exacerbation, FTT, rectal bleeding, hyperkalemia, anxiety, tachycardia. Pt w/ extensive medical hx, including anxiety, schizoaffective disorder, ETOH abuse, IV drug use. Pt lives independently. Discharge needs and plan remain TBD at this time. CM will cont to follow. Current Dischare Plan: TBD Date Signed: 08/19/2017 06:46 PM Electronically Signed By:Cheryl Almonte RN Case Management Discharge Plan Note Case Management Discharge Discharge Order Complete? Answers: Yes Patient to Obtain Answers: Independently Medications Transportation Arranged Answers: Family/Friends Transport will Pick (Date 08/21/2017 01:00 PM & Time) Discharge Comments Notes: Asked patient if he needed anything on discharge? He said that he had a private company that came to his house 2 hrs everyday and also had a RN. He did not want to give me the agency's name. He reported that his life style was not very healthy, he partied too much. He reported that he had Social Security and a trust set aside to help with finances. His optimization engineer was coming to transport him home. Patient had no O2 needs/Hospitalist. Date Signed: 08/21/2017 03:27 PM Electronically Signed By:Daria Gautam LCSW Intervention Information
== END 2017-08-21 13:39 | disposition home health service (06) | DRG 191 ==
LOC: F2N 03:46
PROVIDERS: ADMIT Family Medicine; ATTEND Internal Medicine
DX: J44.1 Chronic obstructive pulmonary disease with (acute) exacerbation (principal); F10.239 Alcohol dependence with withdrawal, unspecified; I10 Essential (primary) hypertension; F25.9 Schizoaffective disorder, unspecified; F41.9 Anxiety disorder, unspecified; B19.20 Unspecified viral hepatitis C without hepatic coma; F17.200 Nicotine dependence, unspecified, uncomplicated; E66.9 Obesity, unspecified; E87.6 Hypokalemia; R62.7 Adult failure to thrive; K70.30 Alcoholic cirrhosis of liver without ascites; E83.42 Hypomagnesemia; Z91.19 Patient's noncompliance with other medical treatment and regimen; Z66 Do not resuscitate
CPT/HCPCS: 96374; 97116-GP; 97161-GP; G0480; J0692; J1940; J2060; J2405; J2930; J3411; J3475

== ENCOUNTER 2017-08-23 09:48 | Emergency (ER) | payer MEDICAID ==
[2017-08-23 09:55] VITALS: TEMP 97.3
--- NOTE | 2017-08-23 10:25 | EDPHY ---
General Narrative: CHIEF COMPLAINT: Alcohol intoxication HISTORY OF PRESENT ILLNESS: Patient presents by EMS with reports of acute alcohol intoxication. He tells me that he has had 540 oz "[employer] [place]" beers and "some special marijuana" this morning. He did so to become intoxicated. He has no chest pain. He has been coughing. He says when he lays on his left side his oxygenation goes down. He informs me that he was in the ICU recently for detoxification from alcohol. He went home 2 days ago. Since then he has been drinking daily. No shortness of breath. No fever or chills. No headache. No abdominal pain. No vomiting. EMS reports that the patient was found in his own feces in his home by his reproduction technician. No other associated complaints or modifying factors. REVIEW OF SYSTEMS: Ten systems reviewed and are negative unless otherwise noted in the HPI PCP: Does not recall PAST MEDICAL HISTORY: Hypertension, COPD, obesity, cirrhosis, hep C virus, recurrent pneumonia SOCIAL HISTORY: Daily alcohol use. Lives at home alone with daily reproduction technician FAMILY HISTORY: Noncontributory EXAMINATION General Appearance: Alert, no distress, unkempt. Strong odor of feces in alcohol Head: normocephalic, atraumatic Eyes: Pupils equal and round, no conjunctival pallor or injection ENT, Mouth: Mucous membranes moist. Airway patent Neck: Normal inspection, supple, non-tender Respiratory: Mild rhonchi. No wheezing. No crackles. No diminishment. No distress Cardiovascular: Regular rate and rhythm. No murmur Gastrointestinal: Obese abdomen is soft. Nondistended. No tenderness. Neurological: Alert to person, place and time. Strength is symmetric in the upper lower extremities. Patient not ambulated Skin: Warm and dry, no rash. No petechiae. There is feces about his thighs and pelvis Extremities: Nontender, no pedal edema. Moving all 4 extremities spontaneously and symmetrically Psychiatric: Mood and affect normal DIFFERENTIAL DIAGNOSES: Including but not limited to acute alcohol intoxication, alcohol abuse, COPD, bronchitis, pneumonia, aspiration MDM: 10:10 a.m. Acute alcohol intoxication. The patient denies any complaints to me. While I was present at bedside, his oxygenation was borderline at 88 to 90%. I have ordered a chest x-ray to rule out pneumonia. He is in no acute distress. 11:00 a.m. Patient resting comfortably. Chest x-ray is pending. 11:40 a.m. Patient re-evaluated. He is intoxicated resting comfortably. No complaints. Chest x-ray has been read as stable without changes from previous mild pleural effusions. 12:20 p.m. Patient re-evaluated. He sitting up in a chair. He is conversing appropriately. He has ambulated several times without assistance. He does appear to be at baseline to me as I have seen this patient in the emergency department before. He is asking to go home by cab as he arrived by EMS. I do feel comfortable with this at this time. He does not drive. He does have a reproduction technician that would call him at home. At this time he will be allowed to call a cab to go home. He is discharged in stable condition. - Diagnostics Imaging Results: Imaging Impressions Chest X-Ray 08/23/17 10:21 Impression: Stable x4 days. - History Smoking Status: Heavy smoker - Objective Vital Signs: Initial Vital Signs O2 Sat (%) 93 08/23/17 09:40 O2 Delivery Mode Nasal Cannula O2 (L/minute) 3 Allergies/Adverse Reactions: levofloxacin [From Levaquin] Allergy (Severe, Verified 08/16/17 07:17) tendinopathy lisinopril Allergy (Verified 08/16/17 07:17) Home Medications: Medication Instructions Recorded Sertraline HCl [Zoloft 100mg (*)] 100 mg PO DAILY 06/29/16 Amlodipine Besylate [Norvasc] 10 mg PO DAILY 01/25/17 Chlorthalidone [Chlorthalidone 25 25 mg PO BID 01/25/17 mg (*)] Labetalol HCl [Trandate 100 mg (*)] 100 mg PO BID 08/16/17 Ibuprofen [Motrin (*)] 600 mg PO TID PRN 08/19/17 Ipratropium/Albuterol [Duoneb (*)] 3 ml IH Q6HRS #100 deyvial 08/21/17 predniSONE 40 mg PO DAILY #3 tablet 08/21/17 Departure - Departure Disposition: Home, Routine, Self-Care Clinical Impression: Alcohol dependence Qualifiers: Substance use status: with intoxication Complication of substance-induced condition: uncomplicated Qualified Code(s): F10.220 - Alcohol dependence with intoxication, uncomplicated Alcohol intoxication Qualifiers: Complication of substance-induced condition: uncomplicated Qualified Code(s): F10.920 - Alcohol use, unspecified with intoxication, uncomplicated Condition: Good Instructions: Alcohol Intoxication (ED) Additional Instructions: 1. Contact your primary care physician for outpatient follow-up 2. Contact the on-call primary care physician should she need to establish with them 3. ED precautions as discussed Referrals: Antione Snow, [Doctor of Osteopathy] - As per Instructions
[2017-08-23 10:32] VITALS: BP 120/85; PULSE 95; RESP 14; O2SAT 93
== END 2017-08-23 12:33 | disposition home or self-care (01) ==
LOC: EDUNIT#
DX: F10.220 Alcohol dependence with intoxication, uncomplicated (principal); I10 Essential (primary) hypertension; J44.9 Chronic obstructive pulmonary disease, unspecified; F17.200 Nicotine dependence, unspecified, uncomplicated

== ENCOUNTER 2017-08-30 20:23 | Emergency (ER) | payer MEDICAID ==
[2017-08-30] MEDS ORDERED: IPRATROPIUM/ALBUTEROL 3 ML DEYVIAL IH ONE (22:09)
[2017-08-30] MEDS ORDERED: DEXAMETHASONE 4 MG TAB ONE (22:11)
[2017-08-30] MEDS ORDERED: DEXAMETHASONE 4 MG TAB PO ONE ×2 (22:21→22:40)
--- NOTE | 2017-08-30 22:30 | EDPHY ---
H & P Time Seen by Provider: 08/30/17 20:32 HPI/ROS: HPI Alcohol abuse, trouble breathing. A 62-year-old male by ambulance from home. Patient is very familiar to our emergency department. He has a long history of alcohol abuse and substance abuse as well as noncompliance with his medication and care plans. His neighbor checked on him prior to arrival thought he was having a difficult time breathing in may have overdosed on his prescription medications. On EMS arrival they noted his pulse oximetries on room air were in the mid 70s. Was started on CPAP and brought to the emergency department. On arrival here CPAP was removed. He is stating that he is feeling better. His room air pulse oximetry was in the mid 90s. He denies overdosing on his medications. He has been drinking alcohol and smoking marijuana today. He reports last drink was several hours ago. ROS: Constitutional: No fever, no chills. No weakness. Eyes: No discharge. No changes in vision. ENT: No sore throat. No nasal congestion or rhinorrhea. Respiratory: No cough. As above. Cardiac: No chest pain, no palpitations. Gastrointestinal: No abdominal pain, no vomiting, no diarrhea. Genitourinary: No hematuria. No dysuria or increased frequency with urination. Musculoskeletal: No back pain. No neck pain. No myalgias or arthralgias. Skin: No rashes. Neurological: No headache. No focal weakness or altered sensation. Past medical history: Hypertension, obesity, cirrhosis, alcohol abuse, hepatitis-C, recurrent pneumonia. Social history: Alcohol abuse, smokes marijuana, smokes cigarettes, lives alone. Has a daily seed specialist. Physical Exam: General Appearance: Alert, belligerent with staff. He is asking for Ativan or Librium. Stating that he is going to go into withdrawal. This patient is responding to questions appropriately and in full sentences. He is obese. He appears well hydrated. Eyes: Pupils equal and round no pallor or injection. No lid edema, erythema or injection. ENT, Mouth: Mucous membranes are moist. Poor dentition. Respiratory: There are no retractions, good air movement but diffuse wheezing on exhalation throughout. Greater in the upper arreguin. No tachypnea.. Cardiovascular: Regular rate and rhythm. Heart sounds are distant. No murmur. Gastrointestinal: Obese habitus. Abdomen is soft and nontender, no masses, bowel sounds normal. No focal tenderness at McBurney's point. No Kendrick sign. Neurological: Motor sensory function is grossly intact. Cranial nerves are normal. Skin: Warm and dry, no rashes. Musculoskeletal: Neck is supple and nontender. Extremities are symmetrical. All joints range without pain or impingement. Psychiatric: No agitation. No depression. Database: EKG: Imaging: Chest x-ray AP portable; stable since previous study on August 23. Resolution of pneumonia. Clear lungs. Interpreted by me. Procedures: Emergency department course: Chest x-ray obtained. Vital signs reviewed. Patient given 2 albuterol/ Atrovent nebulizers [id number] and 12 mg of oral Decadron. 10:50 p.m., patient re-evaluated. Improved air movement. Room air pulse oximetry is 94%. He is not tachypneic or dyspneic. He does not meet criteria for admission. He is currently standing in the doorway and asking the nursing staff for a change of pants. He is speaking in full sentences without difficulty. Actually yelling at people. He does not appear to be in any distress. Plan will be to discharge him back home. I will give him a take- home albuterol inhaler as well as a 1 time dose of Decadron to be taken tomorrow evening. Follow-up was discussed with him. Return to emergency department precautions reviewed. All of his questions were answered. He was discharged in good condition. Differential Diagnosis: The differential diagnosis on this patient includes but is not limited to alcohol intoxication, reactive airway disease. This represents a partial list of diagnoses considered. These considerations are based on history, physical exam, past history, reassessment and diagnostic testing. Smoking Status: Heavy smoker Constitutional: Initial Vital Signs Temperature (C) 36.7 C 08/30/17 20:27 Heart Rate 111 H 08/30/17 20:27 Respiratory Rate 18 08/30/17 20:27 Blood Pressure 142/105 H 08/30/17 20:27 O2 Sat (%) 95 08/30/17 20:27 O2 Delivery Mode Room Air O2 (L/minute) 2 Allergies/Adverse Reactions: levofloxacin [From Levaquin] Allergy (Severe, Verified 08/16/17 07:17) tendinopathy lisinopril Allergy (Verified 08/16/17 07:17) Home Medications: Medication Instructions Recorded Sertraline HCl [Zoloft 100mg (*)] 100 mg PO DAILY 06/29/16 Amlodipine Besylate [Norvasc] 10 mg PO DAILY 01/25/17 Chlorthalidone [Chlorthalidone 25 25 mg PO BID 01/25/17 mg (*)] Labetalol HCl [Trandate 100 mg (*)] 100 mg PO BID 08/16/17 Ibuprofen [Motrin (*)] 600 mg PO TID PRN 08/19/17 Ipratropium/Albuterol [Duoneb (*)] 3 ml IH Q6HRS #100 deyvial 08/21/17 predniSONE 40 mg PO DAILY #3 tablet 08/21/17 Medical Decision Making - Data Points Medications Given: Discontinued Medications Albuterol Sulfate (Proventil Inh Prepack) 1 mdi TAKEHOME EDNOW ONE Stop: 08/30/17 22:40 Last Admin: 08/30/17 23:11 Dose: 1 mdi Albuterol/Ipratropium (Duoneb) 6 ml IH EDNOW ONE Stop: 08/30/17 22:10 Last Admin: 08/30/17 22:17 Dose: 6 ml Dexamethasone (Decadron) 12 mg PO EDNOW ONE Stop: 08/30/17 22:22 Last Admin: 08/30/17 22:46 Dose: 12 mg Dexamethasone (Decadron) 8 mg PO EDNOW ONE Stop: 08/30/17 22:41 Last Admin: 08/30/17 23:11 Dose: 8 mg Departure - Departure Disposition: Home, Routine, Self-Care Clinical Impression: Alcohol abuse, COPD exacerbation Condition: Good Instructions: Albuterol (By breathing), COPD (Chronic Obstructive Pulmonary Disease) (ED), Abuse of Alcohol (ED) Additional Instructions: Read and follow provided instructions. Follow-up with your primary care physician tomorrow for re-evaluation. Take your medication as prescribed. Albuterol meter dose inhaler: 1-2 puffs every 2-4 hours as needed for shortness of breath. 8 mg 1 time dose of Decadron to be taken tomorrow evening. Return to the emergency department for worsening shortness of breath, difficulty breathing, fever or other serious concerns. Referrals: Otteman,Antione B, DO [Doctor of Osteopathy] - As per Instructions
[2017-08-30] MEDS ORDERED: ALBUTEROL INH PREPACK MDI TAKEHOME ONE (22:39)
[2017-08-30 22:49] VITALS: BP 127/63; PULSE 112; O2SAT 94
[2017-08-30 23:24] VITALS: RESP 20; TEMP 98.6
== END 2017-08-30 23:23 | disposition home or self-care (01) ==
LOC: EDUNIT#
DX: J44.1 Chronic obstructive pulmonary disease with (acute) exacerbation (principal); F10.10 Alcohol abuse, uncomplicated; I10 Essential (primary) hypertension; F17.210 Nicotine dependence, cigarettes, uncomplicated

== ENCOUNTER 2017-10-14 07:31 | Emergency (ER) | payer MEDICAID ==
[2017-10-14 07:40] VITALS: O2SAT 94
[2017-10-14] MEDS ORDERED: NS 1,000 ML IV ONE (08:10)
[2017-10-14] MEDS ORDERED: LORazepam 2 MG/ML INJ IVP ONE (08:10)
--- NOTE | 2017-10-14 08:20 | EDPHY ---
H & P Time Seen by Provider: 10/14/17 07:56 HPI/ROS: CHIEF COMPLAINT: "My stomach is fucking killing me " HISTORY OF PRESENT ILLNESS: 62-year-old male familiar to emergency department staff arrives by ambulance complaining of abdominal pain since last evening. States that he has been drinking heavier amounts of alcohol than usual, complaining of epigastric discomfort. No nausea or vomiting. No seizure. Last drink of alcohol was last evening. REVIEW OF SYSTEMS: A ten point review of systems was performed and is negative with the exception of the items mentioned in the HPI PAST MEDICAL & SURGICAL HISTORY: Alcoholism SOCIAL HISTORY: Last drink of alcohol last evening PHYSICAL EXAM (Prior to examination, patient consented to physical exam, hands were washed and my usual and customary physical exam procedures followed) 1) GENERAL: Well-developed, well-nourished, alert and oriented. Crying. 2) HEAD: Normocephalic, atraumatic 3) HEENT: Pupils equal, round, reactive to light bilaterally. Sclera anicteric. [Nasopharynx, oropharynx, clear, no lesions. Dry mucous membranes 4) NECK: Full range of motion, no meningeal signs. 5) LUNGS: Clear auscultation bilaterally, no wheezes, no rhonchi, no retractions. 6) HEART: Regular rate and rhythm, no murmur, no heave, no gallop. 7) ABDOMEN: Distended, guarding, diffusely tender to palpation, 8) MUSCULOSKELETAL: Moving all extremities, no focal areas of tenderness, no obvious trauma. No peripheral edema or discoloration. 9) BACK: No CVA tenderness, no midline vertebral tenderness, no fluctuance, no step-off, no obvious trauma, no visual or palpable abnormality. 10) SKIN: No rash, no petechiae. 11) Psychiatric: Patient is oriented X 3, there is no agitation. DIFFERENTIAL DIAGNOSIS: In no particular order, including but not limited to biliary colic, SBP, cholecystitis, peptic ulcer disease, pancreatitis, and gastroenteritis. This is a partial list of diagnoses considered. These considerations are based on history, physical exam, past history and reassessment. - Personal History Current Tetanus/Diphtheria Vaccine: Unsure Tetanus Vaccine Date: < 10 YEARS - Medical/Surgical History Hx Asthma: No Hx Chronic Respiratory Disease: Yes Hx Diabetes: No Hx Cardiac Disease: No Hx Renal Disease: No Hx Cirrhosis: Yes Hx Alcoholism: Yes Hx HIV/AIDS: No Hx Splenectomy or Spleen Trauma: No Other PMH: alcoholic cirrhosis, - Social History Smoking Status: Heavy smoker Constitutional: Initial Vital Signs Temperature (C) 36.4 C 10/14/17 07:35 Heart Rate 111 H 10/14/17 07:35 Respiratory Rate 24 H 10/14/17 07:35 Blood Pressure 141/106 H 10/14/17 07:35 O2 Sat (%) 94 10/14/17 07:35 O2 Delivery Mode Room Air Allergies/Adverse Reactions: levofloxacin [From Levaquin] Allergy (Severe, Verified 08/16/17 07:17) tendinopathy lisinopril Allergy (Verified 08/16/17 07:17) Home Medications: Medication Instructions Recorded Sertraline HCl [Zoloft 100mg (*)] 100 mg PO DAILY 06/29/16 Amlodipine Besylate [Norvasc] 10 mg PO DAILY 01/25/17 Chlorthalidone [Chlorthalidone 25 25 mg PO BID 01/25/17 mg (*)] Labetalol HCl [Trandate 100 mg (*)] 100 mg PO BID 08/16/17 Ibuprofen [Motrin (*)] 600 mg PO TID PRN 08/19/17 Ipratropium/Albuterol [Duoneb (*)] 3 ml IH Q6HRS #100 deyvial 08/21/17 predniSONE 40 mg PO DAILY #3 tablet 08/21/17 Medical Decision Making - Diagnostics Imaging Results: Imaging Impressions Abdomen CT 10/14/17 09:19 Impression: 1. No CT evidence of acute appendicitis. 2. Nonobstructing lower pole calculus left kidney. Bilateral renal cysts. 3. Lower lumbar degenerative disk disease. 4. Mild thickening of the gallbladder wall without pericholecystic inflammatory changes. Results called to Bjorn Castillo PA-C at 10:00 a.m. Images reviewed by myself ED Course/Re-evaluation: 9:20 a.m.: Patient re-evaluated, discussed laboratory studies. He is complaining of continued abdominal pain, moaning and crying. Will obtain CT imaging. 10:30 a.m.: Re-evaluation, he is sleeping, easily woken, states that he is feeling improvement. He is answering questions appropriately. Discussed his imaging results with him. Doubt delirium tremens. Doubt acute surgical abdominal pathology. Doubt acute pancreatitis. I strongly recommended he consider long-term sobriety from alcohol. I offered [facility] which he [facility]. He is clinically sober at this time, answering questions appropriately, alert and oriented x4, stable steady gait, clear speech pattern. He would like to be discharged home. Care of patient under supervision of secondary supervising physician Dr Jacob Tomas with whom I discussed care . 1040: Patient observed walking out of the emergency department without receiving aftercare instructions. - Data Points Laboratory Results: Laboratory Results 10/14/17 08:36 10/14/17 08:36 10/14/17 10/14/17 10/14/17 08:36 08:36 08:36 WBC 10.16 10^3/uL H 10^3/uL (3.80-9.50) RBC 5.37 10^6/uL 10^6/uL (4.40-6.38) Hgb 17.0 g/dL g/dL (13.7-17.5) Hct 47.6 % % (40.0-51.0) MCV 88.6 fL fL (81.5-99.8) MCH 31.7 pg pg (27.9-34.1) MCHC 35.7 g/dL g/dL (32.4-36.7) RDW 13.2 % % (11.5-15.2) Plt Count 314 10^3/uL 10^3/uL (150-400) MPV 9.2 fL fL (8.7-11.7) Neut % (Auto) 73.1 % % (39.3-74.2) Lymph % (Auto) 15.9 % % (15.0-45.0) [place] % (Auto) 10.2 % % (4.5-13.0) Eos % (Auto) 0.0 % L % (0.6-7.6) Baso % (Auto) 0.5 % % (0.3-1.7) Nucleat RBC Rel Count 0.0 % % (0.0-0.2) Absolute Neuts (auto) 7.42 10^3/uL H 10^3/uL (1.70-6.50) Absolute Lymphs (auto) 1.62 10^3/uL 10^3/uL (1.00-3.00) Absolute Monos (auto) 1.04 10^3/uL H 10^3/uL (0.30-0.80) Absolute Eos (auto) 0.00 10^3/uL L 10^3/uL (0.03-0.40) Absolute Basos (auto) 0.05 10^3/uL 10^3/uL (0.02-0.10) Absolute Nucleated RBC 0.00 10^3/uL 10^3/uL (0-0.01) Immature Gran % 0.3 % % (0.0-1.1) Immature Gran # 0.03 10^3/uL 10^3/uL (0.00-0.10) PT 12.7 SEC SEC (12.0-15.0) INR 0.93 (0.83-1.16) APTT 24.1 SEC SEC (23.0-38.0) Sodium 144 mEq/L mEq/L (135-145) Potassium 3.6 mEq/L mEq/L (3.5-5.2) Chloride 101 mEq/L mEq/L (97-110) Carbon Dioxide 25 mEq/l mEq/l (22-31) Anion Gap 18 mEq/L H mEq/L (8-16) BUN 8 mg/dL mg/dL (7-23) Creatinine 0.7 mg/dL mg/dL (0.7-1.3) Estimated GFR > 60 Glucose 138 mg/dL H mg/dL (70-100) Calcium 9.0 mg/dL mg/dL (8.5-10.4) Total Bilirubin 0.5 mg/dL mg/dL (0.1-1.4) Conjugated Bilirubin 0.3 mg/dL mg/dL (0.0-0.5) Unconjugated Bilirubin 0.2 mg/dL mg/dL (0.0-1.1) AST 76 IU/L H IU/L (17-59) ALT 82 IU/L H IU/L (21-72) Alkaline Phosphatase 88 IU/L IU/L (38-126) Total Protein 7.7 g/dL g/dL (6.3-8.2) Albumin 4.3 g/dL g/dL (3.5-5.0) Lipase 291 IU/L IU/L (23-300) Ethyl Alcohol 194 mg/dL H mg/dL (0-10) Medications Given: Discontinued Medications Sodium Chloride (Ns) 1,000 mls @ 0 mls/hr IV ONCE ONE PRN Reason: Wide Open Stop: 10/14/17 08:11 Last Admin: 10/14/17 08:47 Dose: 1,000 mls Lorazepam (Ativan Injection) 1 mg IVP EDNOW ONE Stop: 10/14/17 08:11 Last Admin: 10/14/17 08:48 Dose: 1 mg Departure - Departure Disposition: Home, Routine, Self-Care Clinical Impression: Alcoholism, Alcohol use Abdominal pain Qualifiers: Abdominal location: generalized Qualified Code(s): R10.84 - Generalized abdominal pain Condition: Good Instructions: Abuse of Alcohol (ED), Acute Abdominal Pain (ED) Additional Instructions: Seek immediate medical attention if you develop new or worsening symptoms, if you develop fevers, chills, inability to tolerate oral intake or any other symptoms that concerns you. Please consider long-term sobriety from alcohol use. We have offered to send you to the [facility], you have declined this. Referrals: [facility],. [Clinic] - 1-2 days without fail
[2017-10-14 08:45] LABS: PLATELET COUNT 314 10^3/uL (150-400)
[2017-10-14 08:53] LABS: INR 0.93 (0.83-1.16); PROTIME(PATIENT) 12.7 SEC (12.0-15.0)
[2017-10-14] MEDS ORDERED: IOPAMIDOL (ISOVUE-300) 100 ML BTL ONE (09:30)
[2017-10-14 10:21] VITALS: BP 149/103; PULSE 102; RESP 18; TEMP 98.4
== END 2017-10-14 10:49 | disposition home or self-care (01) ==
LOC: EDUNIT#
DX: R10.84 Generalized abdominal pain (principal); F10.20 Alcohol dependence, uncomplicated; F17.200 Nicotine dependence, unspecified, uncomplicated; E86.9 Volume depletion, unspecified; Z72.89 Other problems related to lifestyle
CPT/HCPCS: 96374; G0480; J2060; Q9967

== ENCOUNTER 2017-10-15 07:12 | Emergency (ER) | payer MEDICAID ==
--- NOTE | 2017-10-15 07:20 | EDPHY ---
H & P Time Seen by Provider: 10/15/17 07:16 Source: Patient Exam Limitations: No limitations - Personal History Tetanus Vaccine Date: < 10 YEARS - Medical/Surgical History Hx Asthma: Yes Hx Chronic Respiratory Disease: No Hx Diabetes: No Hx Cardiac Disease: Yes Hx Renal Disease: No Hx Cirrhosis: Yes Hx Alcoholism: Yes Hx HIV/AIDS: No Hx Splenectomy or Spleen Trauma: No Other PMH: MEDICAL- ANXIETY, LIVER DISEASE, ASCITES, IVDA, HEP C+, alcohol and drug abuse/MENTAL HEALTH, htn,cirrohsis, hx of 3 ruptured discs/back surgs/ tonsillectomy, - Social History Smoking Status: Heavy smoker Constitutional: Initial Vital Signs Temperature (C) 36.5 C 10/15/17 07:38 Heart Rate 111 H 10/15/17 07:38 Respiratory Rate 18 10/15/17 07:38 Blood Pressure 143/113 H 10/15/17 07:38 O2 Sat (%) 94 10/15/17 07:38 O2 Delivery Mode Room Air Allergies/Adverse Reactions: levofloxacin [From Levaquin] Allergy (Severe, Verified 08/16/17 07:17) tendinopathy lisinopril Allergy (Verified 08/16/17 07:17) Home Medications: Medication Instructions Recorded Sertraline HCl [Zoloft 100mg (*)] 100 mg PO DAILY 06/29/16 Amlodipine Besylate [Norvasc] 10 mg PO DAILY 01/25/17 Chlorthalidone [Chlorthalidone 25 25 mg PO BID 01/25/17 mg (*)] Labetalol HCl [Trandate 100 mg (*)] 100 mg PO BID 08/16/17 Ibuprofen [Motrin (*)] 600 mg PO TID PRN 08/19/17 Ipratropium/Albuterol [Duoneb (*)] 3 ml IH Q6HRS #100 deyvial 08/21/17 predniSONE 40 mg PO DAILY #3 tablet 08/21/17 Medical Decision Making ED Course/Re-evaluation: CHIEF COMPLAINT: Alcohol intoxication. HISTORY OF PRESENT ILLNESS: The patient is a chronic alcoholic that drinks on a daily basis and obtains whatever alcohol is available. The patient has had 37 ER visits over the last year for the same complaint. The patient states "I need to go to the [facility]." He complains of RUQ pain for the past 10 hours with associated nausea and vomiting. The patient was seen here yesterday with alcohol intoxication and abdominal pain. He had an abdominal CT that showed gallbladder wall thickening. Patient denies any injuries denies loss of consciousness denies any recent trauma. Patient denies co-ingestion. Patient denies suicidal or homicidal behavior. REVIEW OF SYSTEMS: A 10 point review of systems was performed and is negative with the exception of the elements mentioned in the history of present illness. PHYSICAL EXAM: General Appearance: Alert, uncomfortable appearing, tremulous. Head: Atraumatic without scalp tenderness or obvious injury Eyes: Pupils equal, round, reactive to light and accommodation, EOMI, no trauma , no injection. Ears: Clear bilaterally, no perforation, normal landmarks Nose: Atraumatic, no rhinorrhea, clear. Throat: There is no erythema or exudates, no lesions, normal tonsils, mucus membranes moist. Neck: Supple, 2+ carotid upstroke, nontender, no lymphadenopathy. Respiratory: No retractions, no distress, no wheezes, and no accessory muscle use. Lungs are clear to auscultation bilaterally. Cardiovascular: Regular rate and rhythm, no murmurs, rubs, or gallops. Bilateral carotid, radial, dorsalis pedis, and posterior tibial pulses intact. Good capillary refill all extremities. Gastrointestinal: Abdomen is obese, RUQ tenderness with guarding. Musculoskeletal: Normal active ROM of all extremities, atraumatic. Neurological: Alert, appropriate, and interactive. The patient has normal DTRs and non-focal cranial nerves, motor, sensory, and cerebellar exam. The patient is tremulous. Skin: No rashes, good turgor, no nodules on palpation. PAST MEDICAL HISTORY: Hypertension, COPD, Obesity, Cirrhosis, Hep C, Recurrent pneumonia. SOCIAL HISTORY: Daily alcohol use. Lives at home with daily sample wrapper. DIAGNOSTICS/PROCEDURES/CRITICAL CARE TIME: Abdominal ultrasound reported to me by the radiologist shows gallbladder thickness with no other findings consistent with disease. No gallstones or acute cholecystitis. DIFFERENTIAL DIAGNOSIS: The differential diagnosis for the patient's altered mental status included but was not limited to alcohol intoxication, alcohol withdrawal, gallbladder disease, hypoglycemia, infectious process, electrolyte abnormality, head injury, neurologic process, anemia. MEDICAL DECISION MAKING: The patient presents with alcohol intoxication and RUQ abdominal pain that has been ongoing for over 10 hours. The patient's WBC was slightly elevated yesterday. He had a CT abdomen yesterday that showed mild thickening of the gallbladder wall without pericholecystic inflammatory changes. I ordered an abdominal ultrasound to look for gallbladder disease. The patient is tremulous, his alcohol level is .043. The patient is tremulous. He received 2mg Ativan and 4mg Zofran. I serially examined this patient since the patient's arrival here in the emergency department. The patient continues to become more and more sober with each examination. His abdominal ultrasound shows gallbladder thickening with no evidence of stones or acute cholecystitis. Plan to discharge the patient to the [facility]. He is feeling much better after Ativan. I serially questioned the patient and the patient's story given initially has not changed. The patient still denies any trauma, any head injury, and any illicit drug use. At this point, the patient is walking the department freely and is clinically sober. We're discharging the patient to the [facility] in stable condition. - Data Points Medications Given: Discontinued Medications Lorazepam (Ativan) 2 mg PO EDNOW ONE Stop: 10/15/17 07:40 Last Admin: 10/15/17 07:48 Dose: 2 mg Ondansetron HCl (Zofran Odt) 4 mg PO EDNOW ONE Stop: 10/15/17 08:18 Last Admin: 10/15/17 08:31 Dose: 4 mg Departure - Departure Disposition: Home, Routine, Self-Care Clinical Impression: Chronic abdominal pain, Alcohol abuse Condition: Good Instructions: Abuse of Alcohol (ED), Chronic Abdominal Pain (ED) Additional Instructions: The patient will go to the [facility] to help with alcohol withdrawal. The [facility] has walk-in appointments for the homeless at the following days/locations. No appointment is needed. Monday 8-10 am @ [facility] 11 AM-1 PM @ [facility] Monday 8-10:30 AM @ [facility] Monday 8-10 AM @ [facility] 2-4 PM @ [facility] Monday 8-10 AM @ [facility] Referrals: [facility],. [Clinic] - As per Instructions Report Scribed for: Jacob Tomas Report Scribed by: Vandana Yuan Date of Report: 10/15/17 Time of Report: 07:32
[2017-10-15] MEDS ORDERED: LORazepam 1 MG TAB PO ONE (07:39)
[2017-10-15 07:42] VITALS: RESP 18
[2017-10-15] MEDS ORDERED: ONDANSETRON DISINTEGRATING 4 MG TAB PO ONE (08:17)
[2017-10-15 08:28] VITALS: PULSE 101; O2SAT 93
[2017-10-15 09:15] VITALS: BP 140/86; TEMP 98.6
== END 2017-10-15 09:15 | disposition home or self-care (01) ==
LOC: EDUNIT#
DX: F10.10 Alcohol abuse, uncomplicated (principal); J45.909 Unspecified asthma, uncomplicated; R10.11 Right upper quadrant pain; G89.29 Other chronic pain; I10 Essential (primary) hypertension; J44.9 Chronic obstructive pulmonary disease, unspecified; F17.200 Nicotine dependence, unspecified, uncomplicated

== ENCOUNTER 2017-10-23 10:51 | Emergency (ER) | payer MEDICAID ==
[2017-10-23 11:21] VITALS: TEMP 98.2
--- NOTE | 2017-10-23 11:50 | EDPHY ---
H & P Stated Complaint: M1 hold, unable to care for self Time Seen by Provider: 10/23/17 11:44 - Personal History Current Tetanus/Diphtheria Vaccine: Yes Current Tetanus Diphtheria and Acellular Pertussis (TDAP): Yes Tetanus Vaccine Date: < 10 YEARS - Medical/Surgical History Hx Asthma: Yes Hx Chronic Respiratory Disease: No Hx Diabetes: No Hx Cardiac Disease: Yes Hx Renal Disease: No Hx Cirrhosis: Yes Hx Alcoholism: Yes Hx HIV/AIDS: No Hx Splenectomy or Spleen Trauma: No Other PMH: MEDICAL- ANXIETY, LIVER DISEASE, ASCITES, IVDA, HEP C+, alcohol and drug abuse/MENTAL HEALTH, htn,cirrohsis, hx of 3 ruptured discs/back surgs/ tonsillectomy, - Social History Smoking Status: Heavy smoker Constitutional: Initial Vital Signs Temperature (C) 36.8 C 10/23/17 11:14 Heart Rate 101 H 10/23/17 11:14 Respiratory Rate 20 10/23/17 11:14 Blood Pressure 171/95 H 10/23/17 11:14 O2 Sat (%) 94 10/23/17 11:14 O2 Delivery Mode Room Air Allergies/Adverse Reactions: levofloxacin [From Levaquin] Allergy (Severe, Verified 08/16/17 07:17) tendinopathy lisinopril Allergy (Verified 08/16/17 07:17) Home Medications: Medication Instructions Recorded Sertraline HCl [Zoloft 100mg (*)] 100 mg PO DAILY 06/29/16 Amlodipine Besylate [Norvasc] 10 mg PO DAILY 01/25/17 Chlorthalidone [Chlorthalidone 25 25 mg PO BID 01/25/17 mg (*)] Labetalol HCl [Trandate 100 mg (*)] 100 mg PO BID 08/16/17 Ibuprofen [Motrin (*)] 600 mg PO TID PRN 08/19/17 Ipratropium/Albuterol [Duoneb (*)] 3 ml IH Q6HRS #100 deyvial 08/21/17 predniSONE 40 mg PO DAILY #3 tablet 08/21/17 Medical Decision Making ED Course/Re-evaluation: CHIEF COMPLAINT: Alcohol intoxication. HISTORY OF PRESENT ILLNESS: The patient is a chronic alcoholic living on the [address]. Patient drinks on a daily basis and obtains whatever alcohol is available. Patient was found by bystanders who called EMS system. Patient has had multiple ER visits over the last several years for the same complaint. Patient denies any injuries denies loss of consciousness denies any recent trauma. Patient denies co-ingestion. Patient denies suicidal or homicidal behavior. REVIEW OF SYSTEMS: A 10 point review of systems was performed and is negative with the exception of the elements mentioned in the history of present illness. PHYSICAL EXAM: General Appearance: Alert, well hydrated, appropriate, and non-toxic appearing. Head: Atraumatic without scalp tenderness or obvious injury Eyes: Pupils equal, round, reactive to light and accommodation, EOMI, no trauma , no injection. Ears: Clear bilaterally, no perforation, normal landmarks Nose: Atraumatic, no rhinorrhea, clear. Throat: There is no erythema or exudates, no lesions, normal tonsils, mucus membranes moist. Neck: Supple, 2+ carotid upstroke, nontender, no lymphadenopathy. Respiratory: No retractions, no distress, no wheezes, and no accessory muscle use. Lungs are clear to auscultation bilaterally. Cardiovascular: Regular rate and rhythm, no murmurs, rubs, or gallops. Bilateral carotid, radial, dorsalis pedis, and posterior tibial pulses intact. Good capillary refill all extremities. Gastrointestinal: Abdomen is soft, nontender, non-distended, no masses, no rebound, no guarding, no peritoneal signs. Musculoskeletal: Normal active ROM of all extremities, atraumatic. Neurological: Alert, appropriate, and interactive. The patient has normal DTRs and non-focal cranial nerves, motor, sensory, and cerebellar exam. Skin: No rashes, good turgor, no nodules on palpation. PAST MEDICAL HISTORY: Chronic alcohol abuse PAST SURGICAL HISTORY: Noncontributory SOCIAL HISTORY: Lives alone, has a home, is a chronic terrible alcoholic denies other drug use besides marijuana DIFFERENTIAL DIAGNOSIS: The differential diagnosis for the patient's intoxication included but was not limited to hypoglycemia, infectious process, electrolyte abnormality, head injury, neurologic process, anemia, cardiac process, and intoxicants. MEDICAL DECISION MAKING: I serially examined this patient since the patient's arrival here in the emergency department. The patient continues to become more and more sober with each examination. I serially questioned the patient and the patient's story given initially has not changed. The patient still denies any trauma, any head injury, and any illicit drug use. At this point, the patient is walking the department freely and is clinically sober. We're [facility] the [facility] to [facility] in [facility] condition. He was put on an M1 hold because the police thought he was gravely disabled and thought there something better we can do with this patient. Unfortunately this patient has been through every social work route. We have admitted him for detox we have done literally everything. I [facility] and be put on a court-ordered alcohol treatment for several months. Departure - Departure Disposition: Home, Routine, Self-Care Clinical Impression: Alcoholism Alcohol withdrawal Qualifiers: Complication of substance-induced condition: uncomplicated Qualified Code(s): F10.230 - Alcohol dependence with withdrawal, uncomplicated Condition: Good Instructions: Alcohol Withdrawal (ED) Referrals: Patient,NotPresent [Primary Care Provider] - As per Instructions
[2017-10-23] MEDS ORDERED: CHLORDIAZEPOXIDE 25MG PREPK#6 BTL TAKEHOME ONE (14:54)
[2017-10-23 15:02] VITALS: BP 135/77; PULSE 85; RESP 16; O2SAT 97
--- NOTE | 2017-10-23 18:51 | ASMTCMCOM ---
CM Note CM Note Notes: Patient presented to the ED for alcohol withdrawal and on an M1 for being gravely disabled. ED MD Dr Jacob Tomas dropped the mental health hold and wants the patient to be placed on an Emergency Commitment alcohol hold and discharged to Withdrawal Management ([facility] the [facility]) for detox, with hopes that the patient will be eventually placed into longer term treatment via Involuntary Commitment process (Dr Tomas willing to pursue this court process for patient). This is the patient's 3rd ED visit in the past two weeks, the 6th visit in the past 3 1/2 months and his 38th ED visit in the last 365 days. He is well-known to the ED since 2008; he is a complex high utilizer see past ED Reports and CM Progress Notes for further information. Spoke with Merlin at ([phone]) and he recommends that Janny, Home Care Music Therapist at , and Dr. Tomas discuss care plan for patient since an E.C. is only valid for up to 5 days and pt typically doesn't get on an I.C. or placed within that timeframe so then the E.C. is dropped and patient is discharged home to repeat behavior and ETOH abuse. Patient is a difficult placement due to dual diagnosis and psychiatric history. CARE PLAN: Janny and Dr Tomas concluded that the current ongoing care plan for this patient will be to place him on an E.C. every time he presents to the ED until he eventually gets through the I.C. process and placed. Date Signed: 10/23/2017 06:50 PM Electronically Signed By:Dilcia Olivia RN
--- NOTE | 2017-10-23 18:54 | ASDISCHSUM ---
Discharge Information Plan Status:Substance Abuse Referrals Medically Cleared to Leave: Discharge Date:10/23/2017 03:01 PM CM D/C Disposition:Other (Not listed) ADT D/C Disposition:Home, Routine, Self-Care Projected Discharge Date:10/23/2017 03:01 PM Transportation at D/C:None or Unknown Discharge Delay Reason: Follow-Up Date:10/23/2017 03:01 PM Discharge Slot: Final Diagnosis: Placement Information Patient Contact Information Contact Name:TREELeonidas Relationship: Address: Home Phone: Work Phone: City: Alternate Phone: State/Zip Code: Email: Financial Information Financial Class: Primary Plan Desc:[employer] Primary Plan Number:[id number] Secondary Plan Desc: Secondary Plan Number: Assessment Information [facility] Progress Note CM Note CM Note Notes: Patient presented to the ED for alcohol withdrawal and on an M1 for being gravely disabled. ED MD Dr Jacob Tomas dropped the mental health hold and wants the patient to be placed on an Emergency Commitment alcohol hold and discharged to Withdrawal Management ([facility]) for detox, with hopes that the patient will be eventually placed into longer term treatment via Involuntary Commitment process (Dr Tomas willing to pursue this court process for patient). This is the patient's 3rd ED visit in the past two weeks, the 6th visit in the past 3 1/2 months and his 38th ED visit in the last 365 days. He is well-known to the ED since 2008; he is a complex high utilizer see past ED Reports and CM Progress Notes for further information. Spoke with Merlin at ([phone]) and he recommends that Janny, Child Care Specialist at , and Dr. Tomas discuss care plan for patient since an E.C. is only valid for up to 5 days and pt typically doesn't get on an I.C. or placed within that timeframe so then the E.C. is dropped and patient is discharged home to repeat behavior and ETOH abuse. Patient is a difficult placement due to dual diagnosis and psychiatric history. CARE PLAN: Janny and Dr Tomas concluded that the current ongoing care plan for this patient will be to place him on an E.C. every time he presents to the ED until he eventually gets through the I.C. process and placed. Date Signed: 10/23/2017 06:50 PM Electronically Signed By:Dilcia Olivia RN LACE LACE Acuity / Level of Answers: No Care: Did the patient have an inpatient admission? # of Emergency department Answers: 9-12 visits in the last 6 months Social determinants Answers: History of substance abuse (ETHO, street drugs, prescription drugs, etc.) Mental health diagnosis (anxiety, depression, pers onality disorders, etc.) Lack of community resources and/or lack of social support (no pcp, lives alone, transportation, carmela d) Score: 15 Date Signed: 10/23/2017 06:51 PM Electronically Signed By:Dilcia Olivia RN Intervention Information
--- NOTE | 2017-10-23 18:56 | ASMTCMCOM ---
CM Note CM Note Notes: Patient's EC completed and signed by Dr. Tomas. [employer] arrived for transport. Original E.C. provided to be given to Withdrawal Management; copy to be scanned into patient's chart. Date Signed: 10/23/2017 06:55 PM Electronically Signed By:Dilcia Olivia RN
--- NOTE | 2017-10-24 20:37 | ASMTCMCOM ---
CM Note CM Note Notes: Received a call from Nazanin Keen (office [phone], cell:[phone]) at [facility] to discuss patient's recent ED visit, discharge to [facility] detox and the care plan the ED has decided to put in place (Emergency Commitment and eventual Involuntary Commitment with Dr Jacob Tomas's assistance). Nazanin provided contact information for detox center, and e-mail address for Dr Tomas. Nazanin states she thinks patient's apartment might be condemned but has yet to confirm that; if apt is condemned patient will need other assistance with obtaining housing or [place] [facility] placement. CM available for further asssistance if needed. Date Signed: 10/24/2017 08:36 PM Electronically Signed By:Dilcia Olivia RN
== END 2017-10-23 15:01 | disposition home or self-care (01) ==
LOC: EDUNIT#
DX: F10.230 Alcohol dependence with withdrawal, uncomplicated (principal); I10 Essential (primary) hypertension; J45.909 Unspecified asthma, uncomplicated; F17.200 Nicotine dependence, unspecified, uncomplicated

== ENCOUNTER 2017-12-08 04:15 | Emergency (ER) | payer MEDICAID ==
[2017-12-08] MEDS ORDERED: CHLORDIAZEPOXIDE 25MG PREPK#6 BTL TAKEHOME ONE (04:20)
--- NOTE | 2017-12-08 04:20 | EDPHY ---
H & P Time Seen by Provider: 12/08/17 04:30 HPI/ROS: HPI CHIEF COMPLAINT: Alcohol Intoxication HISTORY OF PRESENT ILLNESS: Patient is 62-year-old male very familiar to myself , history of alcoholism with daily alcohol use, additional significant history of anxiety and chronic nausea vomiting and diarrhea, he presents emergency room intoxicated with alcohol from his private residence after called 911 as he states he wants to go to detox. When the police and EMS arrived to evaluate him he refused to walk so they could not transport him directly from his private residence to the [facility]. They took come here to the emergency room. He now states he can walk fine wants to go to the [facility]. He denies any other complaints specifically denies chest pain or shortness of breath denies anxiety. Denies nausea vomiting or abdominal pain. He does state that he drank large amount of alcohol today multiple 40s. Past Medical History: Alcoholism, daily alcohol use, chronic nausea vomiting and diarrhea, anxiety Past Surgical History: No recent surgery Social History: Daily alcohol use. Family History: Noncontributory ROS REVIEW OF SYSTEMS: A comprehensive 10 point review of systems is otherwise negative aside from elements mentioned in the history of present illness. Exam Constitutional Intoxicated, triage nursing summary reviewed, vital signs reviewed, Sleepy, smells of alcohol Eyes normal conjunctivae and sclera, horizontal beating nystagmus consistent acute alcohol intoxication, otherwise pupils equal and react to light HENT normal inspection, atraumatic, moist mucus membranes, no epistaxis, neck supple/ no meningismus, no raccoon eyes. Respiratory clear to auscultation bilaterally, normal breath sounds, no respiratory distress, no wheezing. Cardiovascular rate normal, regular rhythm, no murmur, no edema, distal pulses normal. Gastrointestinal soft, non-tender, no rebound, no guarding, normal bowel sounds, no distension, no pulsatile mass. Genitourinary no CVA tenderness. Musculoskeletal no midline vertebral tenderness, full range of motion, no calf swelling, no tenderness of extremities, no meningismus, good pulses, neurovascularly intact. Skin pink, warm, & dry, no rash, skin atraumatic. Neurologic sleepy, intoxicated with alcohol,, alert and oriented x 3, AAOx3, moves all 4 extremities equally, motor intact, sensory intact, CN II-XII intact , , normal vision, normal speech. Psychiatric normal mood/affect. Heme/Lymph/Immune no lymphadenopathy. Differential Diagnosis: Includes but is not limited to in a particular order acute alcohol intoxication, alcohol abuse, dehydration, electrolyte abnormality , nausea vomiting from acute alcohol intoxication Medical Decision Making: Plan for this patient breath alcohol. And then will try to set up for him to go to detox. Re-evaluation: Patient shows no evidence of withdrawal on exam. In fact he is intoxicated with alcohol. He is stable gait when he ambulates. Will try to set him up to go to detox. Librium take-home provided. 0433: Patient's breath alcohol 105 however very weak blow. Source: Patient, EMS - Personal History Tetanus Vaccine Date: < 10 YEARS - Medical/Surgical History Hx Asthma: Yes Hx Chronic Respiratory Disease: No Hx Diabetes: No Hx Cardiac Disease: Yes Hx Renal Disease: No Hx Cirrhosis: Yes Hx Alcoholism: Yes Hx HIV/AIDS: No Hx Splenectomy or Spleen Trauma: No Other PMH: MEDICAL- ANXIETY, LIVER DISEASE, ASCITES, IVDA, HEP C+, alcohol and drug abuse/MENTAL HEALTH, htn,cirrohsis, hx of 3 ruptured discs/back surgs/ tonsillectomy, - Social History Smoking Status: Heavy smoker Constitutional: Initial Vital Signs Temperature (C) 36.6 C 12/08/17 04:27 Heart Rate 125 H 12/08/17 04:27 Respiratory Rate 20 12/08/17 04:27 Blood Pressure 124/103 H 12/08/17 04:27 O2 Sat (%) 93 12/08/17 04:27 O2 Delivery Mode Room Air Allergies/Adverse Reactions: levofloxacin [From Levaquin] Allergy (Severe, Verified 12/08/17 04:27) tendinopathy ketorolac [From Toradol] Allergy (Verified 12/08/17 09:35) lisinopril Allergy (Verified 12/08/17 04:27) Home Medications: Medication Instructions Recorded Sertraline HCl [Zoloft 100mg (*)] 100 mg PO DAILY 06/29/16 Chlorthalidone [Chlorthalidone 25 25 mg PO BID 01/25/17 mg (*)] Labetalol HCl [Trandate 100 mg (*)] 100 mg PO BID 08/16/17 Ibuprofen [Motrin (*)] 600 mg PO TID PRN 08/19/17 Ipratropium/Albuterol [Duoneb (*)] 3 ml IH Q6HRS #100 deyvial 08/21/17 Medical Decision Making - Data Points Medications Given: Discontinued Medications Chlordiazepoxide (Librium 25 Mg Prepack#6) 1 btl TAKEHOME EDNOW ONE Stop: 12/08/17 04:21 Last Admin: 12/08/17 05:29 Dose: 1 btl Lorazepam (Ativan) 1 mg PO EDNOW ONE Stop: 12/08/17 05:00 Last Admin: 12/08/17 05:00 Dose: 1 mg Departure - Departure Disposition: Home, Routine, Self-Care Clinical Impression: Alcohol intoxication Qualifiers: Complication of substance-induced condition: uncomplicated Qualified Code(s): F10.920 - Alcohol use, unspecified with intoxication, uncomplicated Condition: Good Instructions: Alcohol Intoxication (ED) Additional Instructions: 1. Please stop drinking alcohol. Referrals: NONE *PRIMARY CARE P,. [Primary Care Provider] - As per Instructions
[2017-12-08 04:30] VITALS: RESP 20
[2017-12-08] MEDS ORDERED: LORazepam 1 MG TAB ONE (04:57)
[2017-12-08] MEDS ORDERED: LORazepam 1 MG TAB PO ONE (04:59)
[2017-12-08 05:54] VITALS: BP 132/99; PULSE 105; TEMP 97.5; O2SAT 94
== END 2017-12-08 05:40 | disposition home or self-care (01) ==
LOC: EDUNIT#
DX: F10.920 Alcohol use, unspecified with intoxication, uncomplicated (principal); I10 Essential (primary) hypertension; J45.909 Unspecified asthma, uncomplicated; F17.200 Nicotine dependence, unspecified, uncomplicated

== ENCOUNTER 2017-12-08 09:24 | Emergency (ER) | payer MEDICAID ==
[2017-12-08] MEDS ORDERED: LORazepam 2 MG/ML INJ IVP ONE ×2 (09:28→09:34)
[2017-12-08] MEDS ORDERED: NS 500 ML IV ONE (09:28)
[2017-12-08] MEDS ORDERED: ASPIRIN 81 MG CHEWABLE TAB PO ONE (09:28)
[2017-12-08 09:34] VITALS: TEMP 98.2
--- NOTE | 2017-12-08 09:38 | CPEKG ---
Heart Rate: 125 RR Interval: 480 P-R Interval: 136 QRSD Interval: 90 QT Interval: 292 QTC Interval: 421 P [place]: 84 QRS [place]: 89 T Wave [place]: 5 EKG Severity - BORDERLINE ECG - EKG Impression: SINUS TACHYCARDIA EKG Impression: BORDERLINE RIGHT AXIS DEVIATION EKG Impression: LOW VOLTAGE IN FRONTAL LEADS Electronically Signed By: Consuelo Granger 08-Dec-2017 16:17:41
--- NOTE | 2017-12-08 09:50 | EDPHY ---
H & P Stated Complaint: from arc Time Seen by Provider: 12/08/17 09:27 HPI/ROS: CHIEF COMPLAINT: Chest pain times 30 min HISTORY OF PRESENT ILLNESS: 62-year-old male familiar to emergency department staff, was discharged from the emergency department earlier this morning for acute alcohol intoxication, [facility]. He arrives via ambulance complaining of acute chest pain, diaphoresis, dyspnea which started 20-30 min prior to arrival. No hallucination. No seizure. No abdominal pain. No recent or antecedent URI symptoms. No cough. No trauma no fall. Received pre-hospital aspirin. REVIEW OF SYSTEMS: A ten point review of systems was performed and is negative with the exception of the items mentioned in the HPI PAST MEDICAL & SURGICAL HISTORY: COPD. Schizoaffective disorder. Alcoholism. SOCIAL HISTORY:History of alcoholism. Daily cigarette use. PHYSICAL EXAM (Prior to examination, patient consented to physical exam, hands were washed and my usual and customary physical exam procedures followed) 1) GENERAL: obese, alert and oriented to person place time events, answering questions appropriately. Appears to be in no acute distress. 2) HEAD: Normocephalic, atraumatic 3) HEENT: Pupils equal, round, reactive to light bilaterally. Sclera anicteric. 4) NECK: Full range of motion, no meningeal signs. No carotid bruit 5) LUNGS: Clear auscultation bilaterally, no wheezes, no rhonchi, no retractions. 6) HEART: Regular rate and rhythm, no murmur, no heave, no gallop. 7) ABDOMEN: obese, no fluid wave, no focal tenderness, negative McBurney's, negative Kendrick's, negative Rovsing's, negative peritoneal sign, 8) MUSCULOSKELETAL: Moving all extremities, no focal areas of tenderness, no obvious trauma. No peripheral edema or discoloration. Negative Homans no palpable cord 9) BACK: No CVA tenderness, no midline vertebral tenderness, no fluctuance, no step-off, no obvious trauma, no visual or palpable abnormality. 10) SKIN: No rash, no petechiae. 11) Psychiatric: Patient is oriented X 3, there is no agitation. He is tremulous. DIFFERENTIAL DIAGNOSIS: In no particular order, including but not limited to acute alcohol withdrawal, myocardial ischemia, pulmonary embolus, chest wall pain, pleural inflammation and pulmonary infectious causes. - Personal History Current Tetanus/Diphtheria Vaccine: Yes Current Tetanus Diphtheria and Acellular Pertussis (TDAP): Yes Tetanus Vaccine Date: < 10 YEARS - Medical/Surgical History Hx Asthma: Yes Hx Chronic Respiratory Disease: No Hx Diabetes: No Hx Cardiac Disease: Yes Hx Renal Disease: No Hx Cirrhosis: Yes Hx Alcoholism: Yes Hx HIV/AIDS: No Hx Splenectomy or Spleen Trauma: No Other PMH: MEDICAL- ANXIETY, LIVER DISEASE, ASCITES, IVDA, HEP C+, alcohol and drug abuse/MENTAL HEALTH, htn,cirrohsis, hx of 3 ruptured discs/back surgs/ tonsillectomy, - Social History Smoking Status: Heavy smoker Constitutional: Initial Vital Signs Temperature (C) 36.8 C 12/08/17 09:30 Heart Rate 128 H 12/08/17 09:30 Respiratory Rate 18 12/08/17 09:30 Blood Pressure 141/89 H 12/08/17 09:30 O2 Sat (%) 92 12/08/17 09:30 O2 Delivery Mode Room Air Allergies/Adverse Reactions: levofloxacin [From Levaquin] Allergy (Severe, Verified 12/08/17 04:27) tendinopathy ketorolac [From Toradol] Allergy (Verified 12/08/17 09:35) lisinopril Allergy (Verified 12/08/17 04:27) Home Medications: Medication Instructions Recorded Sertraline HCl [Zoloft 100mg (*)] 100 mg PO DAILY 06/29/16 Chlorthalidone [Chlorthalidone 25 25 mg PO BID 01/25/17 mg (*)] Labetalol HCl [Trandate 100 mg (*)] 100 mg PO BID 08/16/17 Ibuprofen [Motrin (*)] 600 mg PO TID PRN 08/19/17 Ipratropium/Albuterol [Duoneb (*)] 3 ml IH Q6HRS #100 deyvial 08/21/17 Medical Decision Making - Diagnostics Imaging Results: Imaging Impressions Chest X-Ray 12/08/17 09:29 Impression: Airways disease and minimal left basilar atelectasis. ED Course/Re-evaluation: 9:27 a.m.: I reviewed old medical records on this patient. Plan will be diagnostic studies including EKG chest x-ray blood work. Care of patient under supervision of secondary supervising physician Dr Granger . 10:09 a.m.: The patient has requested to leave the emergency department. He has been informed that I have only evaluated his EKG which shows sinus tachycardia. Currently tachycardic which may be secondary to acute alcohol withdrawal however there may be other etiologies. He is answering questions appropriately, does not appear to be acutely intoxicated, is answering questions appropriately, awake alert oriented person place time events, clear speech pattern, stable steady gait, no evidence of delirium, he has not been given benzodiazepines in the emergency department. Although benzodiazepine has been ordered he refused this. I believe him to have decision-making capacity at this time. I offered to send him back to the [facility] which he declines. I strongly recommended he stay in the emergency department for further evaluation and and for results of his diagnostic studies which were already obtained. He declines this. He has been informed that he will be leaving against medical advice. In my professional opinion, I think Mr. Mathew necessitates further evaluation. Mr. Mathew states that he would like to leave. By leaving AGAINST MEDICAL ADVICE Mr. Mathew has been explained and has verbalized understanding and acceptance of the risks of leaving AGAINST MEDICAL ADVICE, including, but not limited to, , permanent and chronic disability, permanent and chronic loss of income, need for long-term care, and other situations and circumstances too numerous to mention herein. I think Mr. Mathew has the capacity to fully understand these risks. I have offered ample opportunity to answer questions. I have offered to speak with family and/or friends regarding this issue as well. Patient has been informed that they are welcome to return to emergency department at any point for reevaluation. - Data Points Laboratory Results: Laboratory Results 12/08/17 09:51 12/08/17 09:51 12/08/17 12/08/17 12/08/17 09:51 09:51 09:51 WBC 13.06 10^3/uL H 10^3/uL (3.80-9.50) RBC 4.69 10^6/uL 10^6/uL (4.40-6.38) Hgb 14.7 g/dL g/dL (13.7-17.5) Hct 41.2 % % (40.0-51.0) MCV 87.8 fL fL (81.5-99.8) MCH 31.3 pg pg (27.9-34.1) MCHC 35.7 g/dL g/dL (32.4-36.7) RDW 13.1 % % (11.5-15.2) Plt Count 404 10^3/uL H 10^3/uL (150-400) MPV 9.6 fL fL (8.7-11.7) Neut % (Auto) 66.9 % % (39.3-74.2) Lymph % (Auto) 17.2 % % (15.0-45.0) [place] % (Auto) 15.0 % H % (4.5-13.0) Eos % (Auto) 0.0 % L % (0.6-7.6) Baso % (Auto) 0.6 % % (0.3-1.7) Nucleat RBC Rel Count 0.0 % % (0.0-0.2) Absolute Neuts (auto) 8.73 10^3/uL H 10^3/uL (1.70-6.50) Absolute Lymphs (auto) 2.25 10^3/uL 10^3/uL (1.00-3.00) Absolute Monos (auto) 1.96 10^3/uL H 10^3/uL (0.30-0.80) Absolute Eos (auto) 0.00 10^3/uL L 10^3/uL (0.03-0.40) Absolute Basos (auto) 0.08 10^3/uL 10^3/uL (0.02-0.10) Absolute Nucleated RBC 0.00 10^3/uL 10^3/uL (0-0.01) Immature Gran % 0.3 % % (0.0-1.1) Immature Gran # 0.04 10^3/uL 10^3/uL (0.00-0.10) D-Dimer 2.62 ug/mLFEU H ug/mLFEU (0.00-0.50) Sodium 139 mEq/L mEq/L (135-145) Potassium 3.1 mEq/L L mEq/L (3.5-5.2) Chloride 96 mEq/L L mEq/L (97-110) Carbon Dioxide 26 mEq/l mEq/l (22-31) Anion Gap 17 mEq/L H mEq/L (8-16) BUN 7 mg/dL mg/dL (7-23) Creatinine 0.5 mg/dL L mg/dL (0.7-1.3) Estimated GFR > 60 Glucose 118 mg/dL H mg/dL (70-100) Calcium 8.8 mg/dL mg/dL (8.5-10.4) Total Bilirubin 0.5 mg/dL mg/dL (0.1-1.4) Conjugated Bilirubin 0.4 mg/dL mg/dL (0.0-0.5) Unconjugated Bilirubin 0.1 mg/dL mg/dL (0.0-1.1) AST 39 IU/L IU/L (17-59) ALT 38 IU/L IU/L (21-72) Alkaline Phosphatase 70 IU/L IU/L (38-126) Troponin I < 0.012 ng/mL ng/mL (0.000-0.034) Total Protein 7.3 g/dL g/dL (6.3-8.2) Albumin 4.2 g/dL g/dL (3.5-5.0) Lipase 81 IU/L IU/L (23-300) Departure - Departure Disposition: Against Medical Advice Clinical Impression: History of alcoholism Chest pain Qualifiers: Chest pain type: other chest pain Qualified Code(s): R07.89 - Other chest pain Referrals: NONE *PRIMARY CARE P,. [Primary Care Provider] - As per Instructions
[2017-12-08 10:03] LABS: PLATELET COUNT 404 10^3/uL (150-400)
[2017-12-08 10:26] VITALS: BP 133/90; PULSE 134; RESP 22; O2SAT 91
== END 2017-12-08 10:20 | disposition left against medical advice (07) ==
LOC: EDUNIT#
DX: R07.89 Other chest pain (principal); J44.9 Chronic obstructive pulmonary disease, unspecified; F17.210 Nicotine dependence, cigarettes, uncomplicated; I10 Essential (primary) hypertension; Z86.59 Personal history of other mental and behavioral disorders
CPT/HCPCS: J2060

== ENCOUNTER 2017-12-15 16:34 | Emergency (ER) | payer MEDICAID ==
--- NOTE | 2017-12-15 16:37 | EDPHY ---
H & P Time Seen by Provider: 12/15/17 16:35 HPI/ROS: HPI CHIEF COMPLAINT: Shortness of breath, alcohol intoxication, recent hospitalization, left AMA HISTORY OF PRESENT ILLNESS: Patient is 62-year-old male, well known to myself as well as the emergency room, history of alcoholism, medication noncompliance, , hypertension and COPD, presents emergency room shortness of breath and alcohol intoxication. The patient presents emergency room by EMS. Upon arrival he is noted to be having labored breathing with tachypneic in the 30s, tachycardic in the 120s, decreased breath sounds bilaterally with upper airway secretions, and is intoxicated with alcohol. Past Medical History: History of COPD is hypertension, alcoholism, schizophrenia, obesity, medication noncompliance Past Surgical History: No recent surgery Social History: Daily alcohol use. History of IV drug use. Family History: Noncontributory ROS REVIEW OF SYSTEMS: A comprehensive 10 point review of systems is otherwise negative aside from elements mentioned in the history of present illness. Exam Constitutional appears unwell, triage nursing summary reviewed, vital signs reviewed, awake/alert. Eyes normal conjunctivae and sclera, EOMI, PERRLA. HENT normal inspection, atraumatic, moist mucus membranes, no epistaxis, neck supple/ no meningismus, no raccoon eyes. Respiratory labored breathing with decreased breath sounds bilaterally, wheezing bilaterally, upper airway secretion noises Cardiovascular tachycardic, regular rhythm, no murmur, no edema, distal pulses normal. Gastrointestinal soft, non-tender, no rebound, no guarding, normal bowel sounds, no distension, no pulsatile mass. Genitourinary no CVA tenderness. Musculoskeletal no midline vertebral tenderness, full range of motion, no calf swelling, no tenderness of extremities, no meningismus, good pulses, neurovascularly intact. Skin pink, warm, & dry, no rash, skin atraumatic. Neurologic awake, alert and oriented x 3, AAOx3, moves all 4 extremities equally, motor intact, sensory intact, CN II-XII intact, normal cerebellar, normal vision, normal speech. Psychiatric normal mood/affect. Heme/Lymph/Immune no lymphadenopathy. Differential Diagnosis: Includes but is not limited to in a particular order the pneumonia, sepsis, alcohol intoxication, dehydration, electrolyte disturbance. Medical Decision Making: Plan for this patient x-ray evaluate further pneumonia , blood work, blood cultures, IV fluid bolus, EKG, closely monitor. Check serum alcohol level. Re-evaluation: 1646: I did review the patient's previous ER visit from 12/08/2017, he left against medical advice EKG interpretation by me on record in [employer] system. Impression time of EKG 1702, sinus tach 104. No ST elevation. No ST depression. 1851: Notified to me by nursing staff that this patient left the emergency room. He apparently left against medical advice. I was not aware that he was leaving other than nursing staff stating that he left in walked out of the emergency room. It is noted that he had a P positive D-dimer and I was expected to scan him to make sure he does have a pulmonary embolism. Additionally I would like to admitted to the hospital for hypoxia shortness of breath dehydration and acute alcohol intoxication. However the patient left AMA. I will try to make contact with him to encourage him to come back to the emergency room so that we can admit him and further evaluate his shortness of breath and hypoxia. Nursing staff reports to me that he left against medical advice and refused to sign paperwork. And refused to wait for me to talk to him. Source: Patient, EMS - Personal History Tetanus Vaccine Date: < 10 YEARS - Medical/Surgical History Hx Asthma: Yes Hx Chronic Respiratory Disease: No Hx Diabetes: No Hx Cardiac Disease: Yes Hx Renal Disease: No Hx Cirrhosis: Yes Hx Alcoholism: Yes Hx HIV/AIDS: No Hx Splenectomy or Spleen Trauma: No Other PMH: MEDICAL- ANXIETY, LIVER DISEASE, ASCITES, IVDA, HEP C+, alcohol and drug abuse/MENTAL HEALTH, htn,cirrohsis, hx of 3 ruptured discs/back surgs/ tonsillectomy, - Social History Smoking Status: Heavy smoker Constitutional: Initial Vital Signs Temperature (C) 36.5 C 12/15/17 16:34 Heart Rate 121 H 12/15/17 16:34 Respiratory Rate 23 H 12/15/17 16:34 Blood Pressure 107/45 L 12/15/17 16:34 O2 Sat (%) 91 L 12/15/17 16:34 O2 Delivery Mode Nasal Cannula O2 (L/minute) 6 Allergies/Adverse Reactions: levofloxacin [From Levaquin] Allergy (Severe, Verified 12/08/17 04:27) tendinopathy ketorolac [From Toradol] Allergy (Verified 12/08/17 09:35) lisinopril Allergy (Verified 12/08/17 04:27) Home Medications: Medication Instructions Recorded Sertraline HCl [Zoloft 100mg (*)] 100 mg PO DAILY 06/29/16 Chlorthalidone [Chlorthalidone 25 25 mg PO BID 01/25/17 mg (*)] Labetalol HCl [Trandate 100 mg (*)] 100 mg PO BID 08/16/17 Ibuprofen [Motrin (*)] 600 mg PO TID PRN 08/19/17 Ipratropium/Albuterol [Duoneb (*)] 3 ml IH Q6HRS #100 deyvial 08/21/17 Medical Decision Making - Diagnostics Imaging Results: Imaging Impressions Chest X-Ray 12/15/17 16:40 Impression: Findings consistent with airways disease with no superimposed pneumonia. - Data Points Laboratory Results: Laboratory Results 12/15/17 17:17 12/15/17 12/15/17 12/15/17 18:32 17:37 17:17 WBC Pending RBC Pending Hgb Pending Hct Pending MCV Pending MCH Pending MCHC Pending RDW Pending Plt Count Pending MPV Pending Neut % (Auto) Pending Lymph % (Auto) Pending [place] % (Auto) Pending Eos % (Auto) Pending Baso % (Auto) Pending Nucleat RBC Rel Count Pending Absolute Neuts (auto) Pending Absolute Lymphs (auto) Pending Absolute Monos (auto) Pending Absolute Eos (auto) Pending Absolute Basos (auto) Pending Absolute Nucleated RBC Pending Immature Gran % Pending Immature Gran # Pending PT INR APTT D-Dimer Puncture Site RIGHT RADIAL Patient Temperature 37.0 DEGREES DEGREES pCO2 41 mmHg H mmHg (34-38) pO2 77 mmHg H mmHg (65-75) Total CO2 24 mEq/L mEq/L (23-27) ABG pH 7.37 (7.35-7.45) ABG HCO3 23 mEq/L mEq/L (22-26) ABG O2 Saturation 93 % % (92-95) ABG Base Excess -1.8 mEq/L mEq/L (-2.5-2.5) VBG Lactic Acid 2.1 mmol/L mmol/L (0.7-2.1) Total O2 Concentration 6.0 LITERS LITERS Sodium Potassium Chloride Carbon Dioxide Anion Gap BUN Creatinine Estimated GFR Glucose Calcium Magnesium Total Bilirubin Conjugated Bilirubin Unconjugated Bilirubin AST ALT Alkaline Phosphatase Creatine Kinase CK-MB (CK-2) Fraction Troponin I NT-Pro-B Natriuret Pep Total Protein Albumin Lipase Ethyl Alcohol 12/15/17 12/15/1718 17:17 17:17 17:17 WBC REJ RBC FLEXIBLE NANNY Hgb Not Reported Hct Not Reported MCV Not Reported MCH Not Reported MCHC Not Reported RDW Not Reported Plt Count Not Reported MPV Not Reported Neut % (Auto) Not Reported Lymph % (Auto) Not Reported [place] % (Auto) Not Reported Eos % (Auto) Not Reported Baso % (Auto) Not Reported Nucleat RBC Rel Count Not Reported Absolute Neuts (auto) Not Reported Absolute Lymphs (auto) Not Reported Absolute Monos (auto) Not Reported Absolute Eos (auto) Not Reported Absolute Basos (auto) Not Reported Absolute Nucleated RBC Not Reported Immature Gran % Not Reported Immature Gran # Not Reported PT 12.4 SEC SEC (12.0-15.0) INR 0.90 (0.83-1.16) APTT 21.2 SEC L SEC (23.0-38.0) D-Dimer 1.43 ug/mLFEU H ug/mLFEU (0.00-0.50) Puncture Site Patient Temperature pCO2 pO2 Total CO2 ABG pH ABG HCO3 ABG O2 Saturation ABG Base Excess VBG Lactic Acid Total O2 Concentration Sodium 150 mEq/L H mEq/L (135-145) Potassium 4.3 mEq/L mEq/L (3.5-5.2) Chloride 110 mEq/L mEq/L (97-110) Carbon Dioxide 25 mEq/l mEq/l (22-31) Anion Gap 15 mEq/L mEq/L (8-16) BUN 7 mg/dL mg/dL (7-23) Creatinine 0.5 mg/dL L mg/dL (0.7-1.3) Estimated GFR > 60 Glucose 117 mg/dL H mg/dL (70-100) Calcium 8.8 mg/dL mg/dL (8.5-10.4) Magnesium 2.2 mg/dL mg/dL (1.6-2.3) Total Bilirubin 0.3 mg/dL mg/dL (0.1-1.4) Conjugated Bilirubin 0.3 mg/dL mg/dL (0.0-0.5) Unconjugated Bilirubin 0.0 mg/dL mg/dL (0.0-1.1) AST 35 IU/L IU/L (17-59) ALT 47 IU/L IU/L (21-72) Alkaline Phosphatase 62 IU/L IU/L (38-126) Creatine Kinase 89 IU/L IU/L (0-224) CK-MB (CK-2) Fraction 1.93 ng/mL ng/mL (0.00-3.19) Troponin I < 0.012 ng/mL ng/mL (0.000-0.034) NT-Pro-B Natriuret Pep 112 pg/mL pg/mL (0-125) Total Protein 6.3 g/dL g/dL (6.3-8.2) Albumin 3.6 g/dL g/dL (3.5-5.0) Lipase 131 IU/L IU/L (23-300) Ethyl Alcohol 259 mg/dL H mg/dL (0-10) Medications Given: Discontinued Medications Albuterol/Ipratropium (Duoneb) 3 ml IH EDNOW ONE Stop: 12/15/17 16:42 Last Admin: 12/15/17 17:53 Dose: 3 ml Sodium Chloride (Ns) 1,000 mls @ 0 mls/hr IV EDNOW ONE; Wide Open PRN Reason: Protocol Stop: 12/15/17 16:41 Last Admin: 12/15/17 17:48 Dose: 1,000 mls Departure - Departure Disposition: Against Medical Advice Clinical Impression: Hypoxia Condition: Fair Referrals: Patient,NotPresent [Primary Care Provider] - As per Instructions
[2017-12-15] MEDS ORDERED: NS 1,000 ML IV ONE (16:40)
[2017-12-15] MEDS ORDERED: IPRATROPIUM/ALBUTEROL 3 ML DEYVIAL IH ONE (16:41)
[2017-12-15 16:57] VITALS: BP 107/45; PULSE 121; RESP 23; TEMP 97.7
[2017-12-15 16:58] VITALS: O2SAT 94
--- NOTE | 2017-12-15 17:04 | CPEKG ---
Heart Rate: 104 RR Interval: 577 P-R Interval: 164 QRSD Interval: 88 QT Interval: 344 QTC Interval: 453 P [place]: 78 QRS [place]: 77 T Wave [place]: 49 EKG Severity - OTHERWISE NORMAL ECG - EKG Impression: SINUS TACHYCARDIA Electronically Signed By: Esa Love 15-Dec-2017 23:13:41
[2017-12-15 17:39] LABS: CREATINE KINASE 89 IU/L (0-224)
[2017-12-15 17:44] LABS: INR 0.9 (0.83-1.16); PROTIME(PATIENT) 12.4 SEC (12.0-15.0)
[2017-12-15 18:52] LABS: PLATELET COUNT 275 10^3/uL (150-400)
--- NOTE | 2017-12-21 13:32 | ASMTCMCOM ---
CM Note CM Note Notes: Positive blood cultures from 12/15/17 called to [facility] at [facility]. I have asked [facility] to direct patient back to the ER if he presents to [facility]. Patient does not have a listed contact/phone number in chart. Date Signed: 12/21/2017 01:31 PM Electronically Signed By:Mily Chau RN
== END 2017-12-15 19:02 | disposition left against medical advice (07) ==
LOC: EDUNIT#
DX: R09.02 Hypoxemia (principal); J44.9 Chronic obstructive pulmonary disease, unspecified; I10 Essential (primary) hypertension; F17.200 Nicotine dependence, unspecified, uncomplicated; E86.9 Volume depletion, unspecified
CPT/HCPCS: G0480

== ENCOUNTER 2017-12-21 16:06 | Inpatient (IN) | payer MEDICAID ==
[2017-12-21] MEDS ORDERED: NS 2,700 ML IV ONE (17:12)
--- NOTE | 2017-12-21 17:26 | EDPHY ---
H & P Stated Complaint: Pt called to [facility] for infection;intoxicated at this time Time Seen by Provider: 12/21/17 17:01 HPI/ROS: Chief complaint: Positive blood culture, persistent cold symptoms History of present illness: This is a 62-year-old male, well known to this emergency room, currently homeless, who presents back after being contacted for a positive blood culture. On my evaluation he states he continues to feel unwell reporting runny nose, nasal congestion, sore throat, occult, trouble breathing, body aches. Further he is concerned both of his feet are swelling. He has been seen in the emergency department multiple times. He has left AMA a number of times recently. Review of systems: A 10 point review of systems was obtained and other than described above was negative - Personal History Current Tetanus Diphtheria and Acellular Pertussis (TDAP): Yes Tetanus Vaccine Date: < 10 YEARS - Medical/Surgical History Hx Asthma: Yes Hx Chronic Respiratory Disease: No Hx Diabetes: No Hx Cardiac Disease: Yes Hx Renal Disease: No Hx Cirrhosis: Yes Hx Alcoholism: Yes Hx HIV/AIDS: No Hx Splenectomy or Spleen Trauma: No Other PMH: MEDICAL- ANXIETY, LIVER DISEASE, ASCITES, IVDA, HEP C+, alcohol and drug abuse/MENTAL HEALTH, htn,cirrohsis, hx of 3 ruptured discs/back surgs/ tonsillectomy, - Social History Smoking Status: Heavy smoker - Physical Exam Exam: General Appearance: Alert, unwell appearing. Eyes: Pupils equal and round no pallor or injection. ENT, Mouth: Mucous membranes moist. Respiratory: Diffuse rhonchi. Cardiovascular: Regular rate and rhythm. Gastrointestinal: Abdomen is soft and non tender, no masses, bowel sounds normal. Neurological: Alert. Strength and sensation intact and symmetrical. No meningeal signs. Skin: Warm and dry, no rashes. Musculoskeletal: Neck is supple non tender. Extremities are symmetrical, full range of motion. Psychiatric: Patient is oriented X 3, there is no agitation. Constitutional: Initial Vital Signs Temperature (C) 36.3 C 12/21/17 16:27 Heart Rate 115 H 12/21/17 16:27 Respiratory Rate 18 12/21/17 16:27 Blood Pressure 101/81 H 12/21/17 16:27 O2 Sat (%) 94 12/21/17 16:27 O2 Delivery Mode Room Air Allergies/Adverse Reactions: levofloxacin [From Levaquin] Allergy (Severe, Verified 12/21/17 16:26) tendinopathy ketorolac [From Toradol] Allergy (Verified 12/21/17 16:26) lisinopril Allergy (Verified 12/21/17 16:26) Home Medications: Medication Instructions Recorded Labetalol HCl [Trandate 100 mg (*)] 100 mg PO BID 08/16/17 Escitalopram Oxalate [Lexapro] 10 mg PO DAILY 12/21/17 Meloxicam 15 mg PO DAILY 12/21/17 amLODIPine BESYLATE [Amlodipine 5 mg PO BID 12/21/17 Besylate] Medical Decision Making - Diagnostics Imaging Results: Imaging Impressions Chest X-Ray 12/21/17 17:14 Impression: Mild perihilar bronchitis with bibasilar subsegmental atelectasis. Imaging: I viewed and interpreted images myself ED Course/Re-evaluation: Patient is discussed with my secondary supervising physician Dr. Jacob Tomas. Patient presents to the emergency department after having a positive blood culture the , positive for Staph epi and hominis, sensitive to Vanco. He continues to have cold symptoms. He met sepsis criteria with infectious source , leukocytosis and tachycardia. However the rest of the studies were unremarkable. He was IV hydrated. Given his positive blood culture, leukocytosis and medical history he was started on vancomycin. He will be admitted to the hospitalist service for further evaluation and care. Differential Diagnosis: Included but not limited to pneumonia, bronchitis, sepsis - Data Points Laboratory Results: Laboratory Results 12/21/17 17:29 12/21/17 17:29 12/21/17 12/21/17 12/21/17 17:29 17:29 17:29 WBC 17.12 10^3/uL H 10^3/uL (3.80-9.50) RBC 4.51 10^6/uL 10^6/uL (4.40-6.38) Hgb 14.2 g/dL g/dL (13.7-17.5) Hct 41.5 % % (40.0-51.0) MCV 92.0 fL fL (81.5-99.8) MCH 31.5 pg pg (27.9-34.1) MCHC 34.2 g/dL g/dL (32.4-36.7) RDW 14.6 % % (11.5-15.2) Plt Count 357 10^3/uL 10^3/uL (150-400) MPV 9.6 fL fL (8.7-11.7) Neut % (Auto) 78.0 % H % (39.3-74.2) Lymph % (Auto) 11.6 % L % (15.0-45.0) [place] % (Auto) 8.9 % % (4.5-13.0) Eos % (Auto) 0.5 % L % (0.6-7.6) Baso % (Auto) 0.4 % % (0.3-1.7) Nucleat RBC Rel Count 0.0 % % (0.0-0.2) Absolute Neuts (auto) 13.35 10^3/uL H 10^3/uL (1.70-6.50) Absolute Lymphs (auto) 1.99 10^3/uL 10^3/uL (1.00-3.00) Absolute Monos (auto) 1.52 10^3/uL H 10^3/uL (0.30-0.80) Absolute Eos (auto) 0.09 10^3/uL 10^3/uL (0.03-0.40) Absolute Basos (auto) 0.07 10^3/uL 10^3/uL (0.02-0.10) Absolute Nucleated RBC 0.00 10^3/uL 10^3/uL (0-0.01) Immature Gran % 0.6 % % (0.0-1.1) Immature Gran # 0.10 10^3/uL 10^3/uL (0.00-0.10) PT 14.3 SEC SEC (12.0-15.0) INR 1.09 (0.83-1.16) APTT 26.3 SEC SEC (23.0-38.0) VBG Lactic Acid 1.7 mmol/L mmol/L (0.7-2.1) Sodium Potassium Chloride Carbon Dioxide Anion Gap BUN Creatinine Estimated GFR Glucose Calcium Total Bilirubin Conjugated Bilirubin Unconjugated Bilirubin AST ALT Alkaline Phosphatase Total Protein Albumin Procalcitonin Ethyl Alcohol 12/21/17 12/21/17 17:29 17:27 WBC RBC Hgb Hct MCV MCH MCHC RDW Plt Count MPV Neut % (Auto) Lymph % (Auto) [place] % (Auto) Eos % (Auto) Baso % (Auto) Nucleat RBC Rel Count Absolute Neuts (auto) Absolute Lymphs (auto) Absolute Monos (auto) Absolute Eos (auto) Absolute Basos (auto) Absolute Nucleated RBC Immature Gran % Immature Gran # PT INR APTT VBG Lactic Acid Sodium 148 mEq/L H mEq/L (135-145) Potassium 4.1 mEq/L mEq/L (3.5-5.2) Chloride 110 mEq/L mEq/L (97-110) Carbon Dioxide 22 mEq/l mEq/l (22-31) Anion Gap 16 mEq/L mEq/L (8-16) BUN 3 mg/dL L mg/dL (7-23) Creatinine 0.5 mg/dL L mg/dL (0.7-1.3) Estimated GFR > 60 Glucose 108 mg/dL H mg/dL (70-100) Calcium 8.4 mg/dL L mg/dL (8.5-10.4) Total Bilirubin 0.5 mg/dL mg/dL (0.1-1.4) Conjugated Bilirubin 0.4 mg/dL mg/dL (0.0-0.5) Unconjugated Bilirubin 0.1 mg/dL mg/dL (0.0-1.1) AST 21 IU/L IU/L (17-59) ALT 37 IU/L IU/L (21-72) Alkaline Phosphatase 59 IU/L IU/L (38-126) Total Protein 6.4 g/dL g/dL (6.3-8.2) Albumin 3.6 g/dL g/dL (3.5-5.0) Procalcitonin 0.04 ng/mL ng/mL (0.02-0.10) Ethyl Alcohol 198 mg/dL H mg/dL (0-10) Medications Given: Acetaminophen (Tylenol) 650 mg PO Q4HRS PRN PRN Reason: Pain, Mild/Fever, Can Take PO Stop: 06/19/18 18:58 Last Admin: 12/21/17 20:43 Dose: 650 mg Albuterol/Ipratropium (Duoneb) 3 ml IH QID JEROME Stop: 06/19/18 20:59 Last Admin: 12/21/17 20:28 Dose: 3 ml Thiamine HCl 500 mg/ Sodium (Chloride) 505 mls @ 505 mls/hr IV DAILY JEROME Stop: 06/19/18 18:59 Last Admin: 12/21/17 20:34 Dose: 505 mls Ceftriaxone Sodium/Dextrose (Rocephin 1 Gm (Premix)) 50 mls @ 100 mls/hr IV Q24H JEROME Stop: 01/20/18 20:59 Last Admin: 12/21/17 22:11 Dose: 50 mls Labetalol HCl (Trandate) 100 mg PO BID JEROME Stop: 06/19/18 20:59 Last Admin: 12/21/17 22:11 Dose: 100 mg Lorazepam (Ativan Injection) 0 mg IVP Q1H PRN; Protocol PRN Reason: Alcohol Withdrawal w/IV access Stop: 06/19/18 19:00 Last Admin: 12/21/17 23:45 Dose: 2 mg Methylprednisolone Sodium Succinate (Solu-Medrol) 60 mg IVP Q6HRS JEROME Stop: 06/20/18 00:00 Last Admin: 12/21/17 23:45 Dose: 60 mg Discontinued Medications Albuterol/Ipratropium (Duoneb) 3 ml IH EDNOW ONE Stop: 12/21/17 19:49 Last Admin: 12/21/17 20:28 Dose: Not Given Furosemide (Lasix Injection) 20 mg IVP ONCE ONE Stop: 12/21/17 20:35 Last Admin: 12/21/17 22:11 Dose: 20 mg Sodium Chloride (Ns) 2,700 mls @ 5,400 mls/hr 30 ml/kg infuse over 30 min ( 2700 ml) IV EDNOW ONE PRN Reason: Protocol Stop: 12/21/17 17:41 Last Admin: 12/21/17 17:24 Dose: 2,700 mls Vancomycin HCl 1 gm/ Sodium (Chloride) 250 mls @ 250 mls/hr IV EDNOW ONE Stop: 12/21/17 19:59 Last Admin: 12/21/17 19:00 Dose: 250 mls Departure - Departure Disposition: [facility] Inpatient Acute Clinical Impression: Bronchitis, Blood bacterial culture positive Condition: Fair
--- NOTE | 2017-12-21 17:38 | ASMTCMCOM ---
CM Note CM Note Notes: CM received call back from [facility] re patient "en route" to ER as instructed for positive blood cultures from last ER visit. Patient arrives to ER, intoxicated with BA of 133. Dr. Tomas informed of patient's arrival and reason for "call back" to the ER for IV antibiotics. This CM also discussed possibility of "detainer" for patient if necessary to keep patient here and treat his infection. Dr. Roca to evaluate and determine how to proceed. Please see prior ER CM reports regarding attempts to have patient committed for court ordered ETOH treatment. Dr. Tomas is aware of and involved in these efforts. I have informed [facility] of patient's arrival to the ER and CM to continue to follow in collaboration with [facility] Date Signed: 12/21/2017 05:38 PM Electronically Signed By:Mily Chau RN
[2017-12-21 17:54] LABS: PLATELET COUNT 357 10^3/uL (150-400)
[2017-12-21 18:06] LABS: INR 1.09 (0.83-1.16); PROTIME(PATIENT) 14.3 SEC (12.0-15.0)
[2017-12-21] MEDS ORDERED: VANCOMYCIN HCL/NORMAL SALINE 250 ML IV ONE (18:45)
[2017-12-21] MEDS ORDERED: IPRATROPIUM/ALBUTEROL 3 ML DEYVIAL ONE (18:47)
[2017-12-21] MEDS ORDERED: ONDANSETRON 4 MG/2 ML VIAL IVP PRN (18:59)
[2017-12-21] MEDS ORDERED: ONDANSETRON DISINTEGRATING 4 MG TAB PO PRN (18:59)
[2017-12-21] MEDS ORDERED: ALBUTEROL 3 ML DEYVIAL IH PRN (18:59)
[2017-12-21] MEDS ORDERED: ACETAMINOPHEN 325 MG TAB PO PRN (18:59)
[2017-12-21] MEDS ORDERED: VANCOMYCIN 1 GM in NS 250 ML IV ONE (19:00)
[2017-12-21] MEDS ORDERED: IPRATROPIUM/ALBUTEROL 3 ML DEYVIAL IH ONE (19:48)
--- NOTE | 2017-12-21 20:21 | PDGENHP ---
History and Physical - Chief Complaint SOB, fever, malaise - History of Present Illness This is a 62 yo male who returned to the E.D. for fever, chills, malaise, and because he had a positive blood culture on 12/15 and he was called to return to the E.D. He was last seen on 12/15 and left AMA from the E.D. Blood cultures at that time showed Staph Epi and staph hominis. He did not have Leukocytosis on that day. The patient is a poor historian but reports the following: Today he reports URI Sx's x several days, chills, cough, and fever. He was so weak that he presented to the E.D. In the E.D. he was given 30ml/kg of IVF. He fees very SOB. He reports leg swelling which is worse recently. In the E.D. he had a CXR which did not show an infiltrate. It showed peribronchial thickening and it was reviewed by me. It did not show pulm edema. A urinalysis was not ordered. Repeat blood cultures are pending. He denies urinary sx's. He denies n/v/d. He denies cp, palpitations. He reports Dyspnea, cough, and leg swelling. He denies new rash or wound PMHX/PSHX: HOMELESS, ANXIETY, LIVER DISEASE, ASCITES, IVDA, HEP C+, alcohol and drug abuse/MENTAL HEALTH, htn,cirrohsis, hx of 3 ruptured discs/back surgs/ tonsillectomy, copd, OBESITY, DIASTOLIC DYSFUNCTION SocHx: Daily Etoh, daily tobacco, homeless FmHx: unknown History Information - Allergies/Home Medication List Allergies/Adverse Reactions: levofloxacin [From Levaquin] Allergy (Severe, Verified 12/21/17 16:26) tendinopathy ketorolac [From Toradol] Allergy (Verified 12/21/17 16:26) lisinopril Allergy (Verified 12/21/17 16:26) Home Medications: Labetalol HCl [Trandate 100 mg (*)] 100 mg PO BID 08/16/17 [Last Taken Unknown] Escitalopram Oxalate [Lexapro] 10 mg PO DAILY 12/21/17 [Last Taken Unknown] Meloxicam 15 mg PO DAILY 12/21/17 [Last Taken Unknown] amLODIPine BESYLATE [Amlodipine Besylate] 5 mg PO BID 12/21/17 [Last Taken Unknown] I have personally reviewed and updated: medical history, social history - Past Medical History COPD ( Recently experiencing acute COPD exacerbation), hypertension Additional medical history: recent hospitalization for pneumoinia [place] 02/07/17. HTN. COPD. Schizoaffective disorder. Anxiety disorder. Hepatitis C, s/p Harvoni treatment. h/o chronic alcohol use. h/o IV drug abuse - Surgical History Reports: no pertinent surgical hx Additional surgical history: colonoscopy 2016 with polyps. laminectomy. t&A - Family History Additional family history: denies any recent sick family contacts, denies any recent contact with family. Colon cancer in father's side of the family - Social History Smoking Status: Heavy smoker Additional social history: Pt lives alone, is independent in ADLs. Review of Systems Review of Systems: ROS: 10pt was reviewed & negative except for what was stated in HPI & below Physical Exam Physical Exam: Temp Pulse Resp BP Pulse Ox 36.6 C 113 H 18 155/96 H 92 12/21/17 20:03 12/21/17 20:03 12/21/17 20:03 12/21/17 20:03 12/21/17 20:03 Constitutional: chronically ill appearing Eyes: PERRL, EOMI Ears, Nose, Mouth, Throat: moist mucous membranes Cardiovascular: tachycardia, edema (1+ LE edema) Respiratory: reduced air movement, expiratory wheeze, other (increased work of breathing) Gastrointestinal: normoactive bowel sounds Genitourinary: no bladder fullness Skin: warm Neurologic: AAOx3 Psychiatric: interacting appropriately, not anxious, not encephalopathic, thought process linear Lymph, Heme, Immunologic: No petechiae Lab Data & Imaging Review 12/21/17 17:29 12/21/17 17:29 WBC 17.12 10^3/uL (3.80-9.50) H 12/21/17 17:29 RBC 4.51 10^6/uL (4.40-6.38) 12/21/17 17:29 Hgb 14.2 g/dL (13.7-17.5) 12/21/17 17:29 Hct 41.5 % (40.0-51.0) 12/21/17 17:29 MCV 92.0 fL (81.5-99.8) 12/21/17 17: MCH 31.5 pg (27.9-34.1) 12/21/17 17: MCHC 34.2 g/dL (32.4-36.7) 12/21/17 17: RDW 14.6 % (11.5-15.2) 12/21/17 17: Plt Count 357 10^3/uL (150-400) 12/21/17: MPV 9.6 fL (8.7-11.7) 12/21/17 17: Neut % (Auto) 78.0 % (39.3-74.2) H 12/21/17: Lymph % (Auto) 11.6 % (15.0-45.0) L 12/21/17: [place] % (Auto) 8.9 % (4.5-13.0) 12/21/17: Eos % (Auto) 0.5 % (0.6-7.6) L 12/21/17: Baso % (Auto) 0.4 % (0.3-1.7) 12/21/17: Nucleat RBC Rel Count 0.0 % (0.0-0.2) 12/21/17: Absolute Neuts (auto) 13.35 10^3/uL (1.70-6.50) H 12/21/17 17: Absolute Lymphs (auto) 1.99 10^3/uL (1.00-3.00) 12/21/17 17: Absolute Monos (auto) 1.52 10^3/uL (0.30-0.80) H 12/21/17 17: Absolute Eos (auto) 0.09 10^3/uL (0.03-0.40) 12/21/17: Absolute Basos (auto) 0.07 10^3/uL (0.02-0.10) 12/21/17 17: Absolute Nucleated RBC 0.00 10^3/uL (0-0.01) 12/21/17: Immature Gran % 0.6 % (0.0-1.1) 12/21/17: Immature Gran # 0.10 10^3/uL (0.00-0.10) 12/21/17 17: PT 14.3 SEC (12.0-15.0) 12/21/17 17: INR 1.09 (0.83-1.16) 12/21/17 17: APTT 26.3 SEC (23.0-38.0) 12/21/17 17:29 VBG Lactic Acid 1.7 mmol/L (0.7-2.1) 12/21/17 17:29 Sodium 148 mEq/L (135-145) H 12/21/17 17:29 Potassium 4.1 mEq/L (3.5-5.2) 12/21/17 17: Chloride 110 mEq/L (97-110) 12/21/17 17: Carbon Dioxide 22 mEq/l (22-31) 12/21/17 17: Anion Gap 16 mEq/L (8-16) 12/21/17 17:29 BUN 3 mg/dL (7-23) L 12/21/17 17: Creatinine 0.5 mg/dL (0.7-1.3) L 12/21/17 17:29 Estimated GFR > 60 12/21/17 17: Glucose 108 mg/dL (70-100) H 12/21/17 17: Calcium 8.4 mg/dL (8.5-10.4) L 12/21/17 17:29 Total Bilirubin 0.5 mg/dL (0.1-1.4) 12/21/17 17: Conjugated Bilirubin 0.4 mg/dL (0.0-0.5) 12/21/17 17: Unconjugated Bilirubin 0.1 mg/dL (0.0-1.1) 12/21/17 17:29 AST 21 IU/L (17-59) 12/21/17 17:29 ALT 37 IU/L (21-72) 12/21/17 17: Alkaline Phosphatase 59 IU/L (38-126) 12/21/17 17: Total Protein 6.4 g/dL (6.3-8.2) 12/21/17 17: Albumin 3.6 g/dL (3.5-5.0) 12/21/17 17: Procalcitonin 0.04 ng/mL (0.02-0.10) 12/21/17 17:27 Ethyl Alcohol 198 mg/dL (0-10) H 12/21/17 17:29 Assessment & Plan Assessment: #SIRS criteria, possible Sepsis based on reported fever (none documented here), Leukocytosis, increased resp rate (above 20) on my exam, and tachycardia #Acute Respiratory Failure #COPD with exacerbation #Recent + blood culture c/w Stap Epi and [place]. Possibly a contaminant -repeat blood cultures are pending #Diastolic CHF with exacerbation #Chronic ETOH with acute intoxication #tobacco abuse disorder Plan: -While he meets SIRS/Sepsis criteria, his likely primary etiology is lung, specifically COPD exacerbation. I expect that he will have improvement with starting IV steroids. Bronchodilators will also be scheduled. As for abx, he was started empirically on Vancomycin in the E.D. I dont know what was being treated. I will not continue it at this time. I did order a procalcitonin and this is unremarkable, however, given his clinical presentation and possible Sepsis I will start Levaquin. I do not see e/o aspiration at this time. Viral Resp panel will be checked. -await repeat blood cultures. Prior blood cultures were likely contaminant -he has already received lots of IVF in the E.D, and actually feels more SOB. I will not continue further fluids. He will receive Lasix 20mg IV x 1. He will likely need more Lasix tomorrow. He has a hx of diastolic dysfunction, last TTE 02/03/17 c/w preserved LVEF. I will not check another TTE at this time. -He has acute intoxication, will provide for CIWA in case he withdraws. -Nicotine patch. total critical care time in this patient with acute respiratory failure, COPD exacerbation, and possible sepsis is 65 minutes.
[2017-12-21] MEDS: IPRATROPIUM/ALBUTEROL 3 ML DEYVIAL IH SCH (20:28)
[2017-12-21] MEDS ORDERED: FUROSEMIDE 20 MG/2 ML VIAL IVP ONE (20:34)
[2017-12-21] MEDS: THIAMINE HCL 500 MG in NS 500 ML IV SCH (20:34)
[2017-12-21] MEDS: LORazepam 2 MG/ML INJ IVP PRN ×3 (21:27→23:45)
[2017-12-21] MEDS: LABETALOL HCL 100 MG TAB PO SCH (22:11)
[2017-12-21] MEDS: methylPREDNISolone SOD SUCC 125 MG/2 ML VIAL IVP SCH (23:45)
[2017-12-22] MEDS: LORazepam 2 MG/ML INJ IVP PRN ×2 (01:04→02:07)
[2017-12-22] MEDS ORDERED: DEXMEDETOMIDINE HCL 400 MCG in NS 100 ML IV SCH (02:00)
[2017-12-22] MEDS: NICOTINE 21 MG/24 HR PATCH TD SCH ×2 (02:52→09:15)
[2017-12-22 04:03] LABS: PLATELET COUNT 316 10^3/uL (150-400)
[2017-12-22] MEDS: methylPREDNISolone SOD SUCC 125 MG/2 ML VIAL IVP SCH (05:15)
[2017-12-22] MEDS ORDERED: PROTOCOL MAGNESIUM 1 DOSE IV PRN (05:24)
[2017-12-22] MEDS ORDERED: PROTOCOL POTASSIUM 1 DOSE MISC PRN (05:24)
[2017-12-22] MEDS ORDERED: MAGNESIUM SULF 1 GM/DEXTROSE 100 ML IV ONE (05:38)
[2017-12-22] MEDS: IPRATROPIUM/ALBUTEROL 3 ML DEYVIAL IH SCH (05:49)
[2017-12-22] MEDS ORDERED: LORazepam 2 MG/ML INJ IVP SCH (06:00)
--- NOTE | 2017-12-22 08:31 | PDMN ---
Medical Necessity Medical necessity: est los>2mn for SIRS criteria, possible sepsis w/reported fever, leukocytosis, resp>20, and tachycardia; acute resp failure, COPD exacerbation, diastolic CHF exacerbation, acute etoh intoxication; admit for IV abx, steroids and Lasix; CIWA, and bronchodilators, follow repeat BC's to r/o contaminant on priort; also w/comorbid liver disease, homelessness, ascites, hep C, htn, drug and etoh abuse; per order and H&P 12/21/17
[2017-12-22] MEDS ORDERED: FOLIC ACID 1 MG TAB PO SCH (09:00)
[2017-12-22] MEDS ORDERED: FAMOTIDINE 20 MG/NACL 50 ML IV SCH (09:00)
[2017-12-22] MEDS ORDERED: ESCITALOPRAM OXALATE 10 MG TAB PO SCH (09:00)
[2017-12-22] MEDS: LABETALOL HCL 100 MG TAB PO SCH (09:15)
[2017-12-22] MEDS: THIAMINE HCL 500 MG in NS 500 ML IV SCH (10:27)
[2017-12-22 11:14] VITALS: TEMP 99
[2017-12-22 11:15] VITALS: BP 113/67; PULSE 77; RESP 24; O2SAT 94
--- NOTE | 2017-12-22 11:21 | HOSPPROG ---
Hospitalist Progress Note Assessment/Plan: # acute on chronic resp failure - most likely d/t COPD - cont steroids, abx, nebs # COPD exacerbation - treat as above - recheck CXR tomorrow to see if pna reveals itself # SIRS, possible sepsis (tachy, incr RR, leukocytosis), possible source pulm - received fluids in the ED - on abx # possible dCHF - received lasix; consider repeat dose # leukocytosis - quite pronounced on presentation, now possibly explained by steroids - cont rocephin, check UA # etOH abuse and w/d - had mild w/d on last admit - monitor on CIWA; off precedex currently - ok for med surg at this point # +BCx with staph epi and staph hominis - suspect this is contaminant, not directly targeting this currently - follow repeat blood cultures # schizophrenia - not on any medications directed at this Subjective: breathing feels better today; has not been drinking as much recently Objective: Vital Signs Temp Pulse Resp BP Pulse Ox 37.1 C 71 23 H 93/62 L 90 L 12/22/17 02:49 12/22/17 06:00 12/22/17 06:00 12/22/17 06:00 12/22/17 06:00 Microbiology 12/21/17 22:30 Respiratory Panel (PCR) - Final Nasal, Sinus - Anaerobic Tube/Swab No Organism Detected Laboratory Results 12/22/17 03:47 12/22/17 03:47 12/21/17 12/22/17 12/23/17 05:59 05:59 05:59 Intake Total 53 Output Total 450 Balance -397 PT 14.3 SEC (12.0-15.0) 12/21/17 17:29 INR 1.09 (0.83-1.16) 12/21/17 17:29 chart reviewed CXR personally reviewed discussed with Dr George and ICU team on rounds - Physical Exam Constitutional: chronically ill appearing, uncomfortable Cardiovascular: regular rate and rhythym, no murmur, rub, or gallop Respiratory: expiratory wheeze, rhonchi (diffuse), No inspiratory crackles, No bronchial breath sounds Gastrointestinal: soft, non-tender abdomen, no palpable masses ICD10 Worksheet Patient Problems: Problems Problem Status Onset Blood bacterial culture positive Acute Bronchitis Acute RANDAL (acute kidney injury) Acute Alcohol intoxication Acute Alcohol withdrawal Acute Alcoholism Acute Anxiety Acute Bilateral ankle pain Acute Bilateral knee pain Acute Chronic alcoholism Acute Chronic obstructive pulmonary disease with acute exacerbation Acute Diarrhea Acute Elevated bilirubin Acute Gravely disabled Acute Hand edema Acute Hypokalemia Acute Hyponatremia Acute Lactic acidosis Acute Leg edema Acute Leukocytosis Acute Leukocytosis Acute Nausea vomiting and diarrhea Acute Pneumonia Acute Pneumonia Acute Schizoaffective disorder, bipolar type Acute
[2017-12-22] MEDS ORDERED: BEER 1 EACH EA PO SCH (11:30)
[2017-12-22] MEDS ORDERED: IPRATROPIUM/ALBUTEROL 3 ML DEYVIAL IH SCH (12:00)
--- NOTE | 2017-12-22 12:30 | GDS ---
[f rep st] DISCHARGE SUMMARY ALL DIAGNOSES: 1. Acute on chronic respiratory failure. 2. Chronic obstructive pulmonary disease exacerbation. 3. Systemic inflammatory response syndrome, possible sepsis. 4. Possible diastolic congestive heart failure. 5. Leukocytosis. 6. Alcohol abuse and withdrawal. 7. Positive blood cultures with Staphylococcus epidermitis as well as Staphylococcus hominis. 8. Schizophrenia. HOSPITAL COURSE: This is a 62-year-old man who was admitted after being called in for positive blood cultures. He had been in the ED a few days before, had blood cultures drawn at that point. These b ecame positive. He was thus called back. Notably, he left AMA from the ED that evening. Blood cult ures ended up growing Staph epi and Staph hominis in 2/4 and 1/4 bottles respectively. This is felt to be contaminant. He did have a significant COPD exacerbation. He was being treated for this as we ll as possible pneumonia. Notably, he had a white count of 17,000. He had overall improved. He had been transferred to the ICU overnight for possible alcohol withdrawal, though when I am seeing him, he did not appear to be withdrawing. He had received Precedex overnight, had not received Ativan for 10 hours prior to his departure. I rounded on him. Then was called back as he had requested to fabio ve AMA. I warned him of risks, including respiratory failure and , however, he is still willing to leave. He did allow me to write him 2 prescriptions for prednisone as well as Levaquin. He fill ed out the AMA paperwork and signed it. He does have capacity to make decisions at this time. BILLING: I spent more than 30 minutes on the day of discharge coordinating care. /[id number]/[id number]
[2017-12-24] MEDS ORDERED: THIAMINE HCL 100 MG TAB PO SCH (09:00)
== END 2017-12-22 12:10 | disposition home or self-care (01) | DRG 871 ==
LOC: F3E 19:56 → F2N 12-22 02:20
PROVIDERS: ADMIT Family Medicine; ATTEND Student in an Organized Health Care Education/Training Program
DX: A41.1 Sepsis due to other specified staphylococcus (principal); J18.9 Pneumonia, unspecified organism; J96.00 Acute respiratory failure, unspecified whether with hypoxia or hypercapnia; J44.1 Chronic obstructive pulmonary disease with (acute) exacerbation; I50.33 Acute on chronic diastolic (congestive) heart failure; F10.239 Alcohol dependence with withdrawal, unspecified; F10.229 Alcohol dependence with intoxication, unspecified; F41.9 Anxiety disorder, unspecified; K70.10 Alcoholic hepatitis without ascites; K70.30 Alcoholic cirrhosis of liver without ascites; F20.9 Schizophrenia, unspecified; F17.210 Nicotine dependence, cigarettes, uncomplicated; Y90.6 Blood alcohol level of 120-199 mg/100 ml; D72.829 Elevated white blood cell count, unspecified; Z59.0 Homelessness
CPT/HCPCS: G0480; J0696; J1940; J2060; J2930; J3370; J3411; J3475

== ENCOUNTER 2018-01-01 13:50 | Emergency (ER) | payer MEDICAID ==
--- NOTE | 2018-01-01 13:58 | EDPHY ---
H & P Stated Complaint: ETOH Time Seen by Provider: 01/01/18 13:56 - Personal History Current Tetanus/Diphtheria Vaccine: Unsure Tetanus Vaccine Date: < 10 YEARS - Medical/Surgical History Hx Asthma: Yes Hx Chronic Respiratory Disease: No Hx Diabetes: No Hx Cardiac Disease: Yes Hx Renal Disease: No Hx Cirrhosis: Yes Hx Alcoholism: Yes Hx HIV/AIDS: No Hx Splenectomy or Spleen Trauma: No Other PMH: MEDICAL- ANXIETY, LIVER DISEASE, ASCITES, IVDA, HEP C+, alcohol and drug abuse/MENTAL HEALTH, htn,cirrohsis, hx of 3 ruptured discs/back surgs/ tonsillectomy, - Social History Smoking Status: Heavy smoker Constitutional: Initial Vital Signs Temperature (C) 36.6 C 01/01/18 13:54 Heart Rate 74 01/01/18 13:54 Respiratory Rate 16 01/01/18 13:54 Blood Pressure 140/80 H 01/01/18 13:54 O2 Sat (%) 94 01/01/18 13:54 O2 Delivery Mode Room Air Allergies/Adverse Reactions: levofloxacin [From Levaquin] Allergy (Severe, Verified 12/21/17 16:26) tendinopathy ketorolac [From Toradol] Allergy (Verified 12/21/17 16:26) lisinopril Allergy (Verified 12/21/17 16:26) Home Medications: Medication Instructions Recorded Labetalol HCl [Trandate 100 mg (*)] 100 mg PO BID 08/16/17 Escitalopram Oxalate [Lexapro 10 10 mg PO DAILY 12/21/17 MG] Meloxicam 15 mg PO DAILY 12/21/17 levOFLOXACIN [levAQUIN (*)] 750 mg PO DAILY #10 tab 12/22/17 predniSONE [Deltasone] 40 mg PO DAILY #10 tablet 12/22/17 Medical Decision Making ED Course/Re-evaluation: CHIEF COMPLAINT: Alcohol intoxication. HISTORY OF PRESENT ILLNESS: The patient is a chronic alcoholic living on [address]. Patient drinks on a daily basis and obtains whatever alcohol is available. Patient was found by bystanders who called EMS system. Patient has had multiple ER visits over the last several years for the same complaint. Patient denies any injuries denies loss of consciousness denies any recent trauma. Patient denies co-ingestion. Patient denies suicidal or homicidal behavior. REVIEW OF SYSTEMS: A 10 point review of systems was performed and is negative with the exception of the elements mentioned in the history of present illness. PHYSICAL EXAM: General Appearance: Alert, well hydrated, appropriate, and non-toxic appearing. Head: Atraumatic without scalp tenderness or obvious injury Eyes: Pupils equal, round, reactive to light and accommodation, EOMI, no trauma , no injection. Ears: Clear bilaterally, no perforation, normal landmarks Nose: Atraumatic, no rhinorrhea, clear. Throat: There is no erythema or exudates, no lesions, normal tonsils, mucus membranes moist. Neck: Supple, 2+ carotid upstroke, nontender, no lymphadenopathy. Respiratory: No retractions, no distress, no wheezes, and no accessory muscle use. Lungs are clear to auscultation bilaterally. Cardiovascular: Regular rate and rhythm, no murmurs, rubs, or gallops. Bilateral carotid, radial, dorsalis pedis, and posterior tibial pulses intact. Good capillary refill all extremities. Gastrointestinal: Abdomen is soft, nontender, non-distended, no masses, no rebound, no guarding, no peritoneal signs. Musculoskeletal: Normal active ROM of all extremities, atraumatic. Neurological: Alert, appropriate, and interactive. The patient has normal DTRs and non-focal cranial nerves, motor, sensory, and cerebellar exam. Skin: No rashes, good turgor, no nodules on palpation. PAST MEDICAL HISTORY: Chronic alcoholic, liver disease, ascites PAST SURGICAL HISTORY: Noncontributory SOCIAL HISTORY: Has a home, drinks daily DIFFERENTIAL DIAGNOSIS: Includes but is not limited to: Alcohol intoxication , polysubstance abuse MEDICAL DECISION MAKING: I serially examined this patient since the patient's arrival here in the emergency department. The patient continues to become more and more sober with each examination. I serially questioned the patient and the patient's story given initially has not changed. The patient still denies any trauma, any head injury, and any illicit drug use. At this point, the patient is walking the department freely and is clinically sober. We're discharging the patient to the [facility] in stable condition. Departure - Departure Disposition: Home, Routine, Self-Care Clinical Impression: Alcohol dependence Qualifiers: Substance use status: uncomplicated Qualified Code(s): F10.20 - Alcohol dependence, uncomplicated Condition: Good Instructions: Alcohol Intoxication (ED), Abuse of Alcohol (ED) Referrals: Patient,NotPresent [Primary Care Provider] - As per Instructions
[2018-01-01] MEDS ORDERED: CHLORDIAZEPOXIDE 25MG PREPK#6 BTL TAKEHOME ONE (16:26)
[2018-01-01 17:00] VITALS: BP 156/97; PULSE 93; RESP 16; TEMP 98.6; O2SAT 96
== END 2018-01-01 16:52 | disposition home or self-care (01) ==
LOC: EDUNIT#
DX: F10.20 Alcohol dependence, uncomplicated (principal); I10 Essential (primary) hypertension; J45.909 Unspecified asthma, uncomplicated; F17.200 Nicotine dependence, unspecified, uncomplicated

== ENCOUNTER 2018-01-29 23:48 | Emergency (ER) | payer OTHER, MEDICAID ==
--- NOTE | 2018-01-30 | CPEKG ---
Heart Rate: 87 RR Interval: 690 P-R Interval: 156 QRSD Interval: 94 QT Interval: 380 QTC Interval: 457 P Mcgrath: 56 QRS Mcgrath: 46 T Wave Mcgrath: 39 EKG Severity - NORMAL ECG - EKG Impression: SINUS RHYTHM Electronically Signed By: Janny Paz 30-Jan-2018 06:58:53
[2018-01-30 00:55] LABS: PLATELET COUNT 365 10^3/uL (150-400)
[2018-01-30 01:05] VITALS: BP 151/98
--- NOTE | 2018-01-30 01:05 | EDPHY ---
H & P Stated Complaint: Chest pain- from nursing home Time Seen by Provider: 01/30/18 00:35 HPI/ROS: HPI The patient presents with chest pain that began about 3 hr ago while he was incarcerated in nursing home. The pain started suddenly and he describes it as a left- sided dull pulsating pain lasting for about 90 min and resolving spontaneously. It was associated with nausea without diaphoresis, dizziness, shortness of breath. The pain did not radiate. He attributes the pain to an anxiety attack and says he has had the pain before in setting of anxiety attack. He says he has without many of his medications currently and this is contributing to his symptoms.. REVIEW OF SYSTEMS Constitutional: No fever, no chills. Eyes: No discharge. ENT: No sore throat. Cardiovascular: Positive for chest pain, no palpitations. Respiratory: No cough, no shortness of breath. Gastrointestinal: No abdominal pain, no vomiting. Genitourinary: No hematuria. Musculoskeletal: No back pain. Skin: No rashes. Neurological: No headache. PMHx: Schizoaffective disorder, hepatitis-C, hypertension Soc Hx: Currently incarcerated PHYSICAL General Appearance: Alert, no distress Eyes: Pupils equal and round no pallor or injection ENT, Mouth: Mucous membranes moist Respiratory: There are no retractions, lungs are clear to auscultation Cardiovascular: Regular rate and rhythm Gastrointestinal: Abdomen is soft and non-tender, no masses, bowel sounds normal Neurological: A&O, moves all extremities Skin: Warm and dry, no rashes Musculoskeletal: Neck is supple non tender Extremities: symmetrical, full range of motion Psychiatric: Patient is oriented X 3, there is no agitation Source: Patient Exam Limitations: No limitations - Personal History Tetanus Vaccine Date: < 10 YEARS - Medical/Surgical History Hx Asthma: Yes Hx Chronic Respiratory Disease: No Hx Diabetes: No Hx Cardiac Disease: Yes Hx Renal Disease: No Hx Cirrhosis: Yes Hx Alcoholism: Yes Hx HIV/AIDS: No Hx Splenectomy or Spleen Trauma: No Other PMH: MEDICAL- ANXIETY, LIVER DISEASE, ASCITES, IVDA, HEP C+, alcohol and drug abuse/MENTAL HEALTH, htn,cirrohsis, hx of 3 ruptured discs/back surgs/ tonsillectomy, - Social History Smoking Status: Heavy smoker Constitutional: Initial Vital Signs Temperature (C) 36.7 C 01/29/18 23:45 Heart Rate 97 01/29/18 23:45 Respiratory Rate 20 01/29/18 23:45 Blood Pressure 148/109 H 01/29/18 23:45 O2 Sat (%) 95 01/29/18 23:45 O2 Delivery Mode Room Air Allergies/Adverse Reactions: levofloxacin [From Levaquin] Allergy (Severe, Verified 01/30/18 00:00) tendinopathy ketorolac [From Toradol] Allergy (Verified 01/30/18 00:00) lisinopril Allergy (Verified 01/30/18 00:00) Home Medications: Medication Instructions Recorded Labetalol HCl [Trandate 100 mg (*)] 100 mg PO BID 08/16/17 Escitalopram Oxalate [Lexapro 10 10 mg PO DAILY 12/21/17 MG] Meloxicam 15 mg PO DAILY 12/21/17 levOFLOXACIN [levAQUIN (*)] 750 mg PO DAILY #10 tab 12/22/17 predniSONE [Deltasone] 40 mg PO DAILY #10 tablet 12/22/17 Medical Decision Making - Diagnostics EKG Interpretation: EKG: Complete interpretation has been separately recorded in the [facility] archive. Summary impression: Normal sinus rhythm, no ST segment changes Imaging Results: Chest x-ray one view shows no cardiomegaly, possible small left-sided pleural effusion, interpreted by me, radiology interpretation is pending. Imaging: I viewed and interpreted images myself Procedures: Bedside lung Ultrasound- performed and interpreted by me. Indication: Chest pain Findings: No left-sided pleural effusion visualized, normal lung sliding at lung base without any pneumothorax Impression: No left-sided pleural effusion Differential Diagnosis: This is a 62-year-old man, well known to our emergency department with history of anxiety, schizoaffective disorder, hypertension who presents with an episode of chest pain, now resolved in the setting of what he describes as an anxiety attack. He is brought in by ambulance. EKGs are unremarkable. Differential diagnosis includes anxiety attack, ACS, GERD, costochondritis. In the emergency department, patient asked for Ativan. I told him that I would not give this to him. He had normal EKG and basic labs including troponin. Chest x-ray showed possible left-sided pleural effusion so bedside ultrasound was obtained and showed normal left lung base so I feel this is not a concern. He asked to be discharged back to the nursing home and I will do this. I think his risk of ACS is very low at this point and I do not think he requires any further testing. - Data Points Laboratory Results: Laboratory Results 01/30/18 00:04 01/30/18 00:04 01/30/18 01/30/18 00:04 00:04 WBC 9.47 10^3/uL 10^3/uL (3.80-9.50) RBC 4.75 10^6/uL 10^6/uL (4.40-6.38) Hgb 14.6 g/dL g/dL (13.7-17.5) Hct 42.8 % % (40.0-51.0) MCV 90.1 fL fL (81.5-99.8) MCH 30.7 pg pg (27.9-34.1) MCHC 34.1 g/dL g/dL (32.4-36.7) RDW 13.1 % % (11.5-15.2) Plt Count 365 10^3/uL 10^3/uL (150-400) MPV 11.0 fL fL (8.7-11.7) Neut % (Auto) 55.2 % % (39.3-74.2) Lymph % (Auto) 30.2 % % (15.0-45.0) [place] % (Auto) 12.2 % % (4.5-13.0) Eos % (Auto) 1.2 % % (0.6-7.6) Baso % (Auto) 0.6 % % (0.3-1.7) Nucleat RBC Rel Count 0.0 % % (0.0-0.2) Absolute Neuts (auto) 5.22 10^3/uL 10^3/uL (1.70-6.50) Absolute Lymphs (auto) 2.86 10^3/uL 10^3/uL (1.00-3.00) Absolute Monos (auto) 1.16 10^3/uL H 10^3/uL (0.30-0.80) Absolute Eos (auto) 0.11 10^3/uL 10^3/uL (0.03-0.40) Absolute Basos (auto) 0.06 10^3/uL 10^3/uL (0.02-0.10) Absolute Nucleated RBC 0.00 10^3/uL 10^3/uL (0-0.01) Immature Gran % 0.6 % % (0.0-1.1) Immature Gran # 0.06 10^3/uL 10^3/uL (0.00-0.10) Sodium 140 mEq/L mEq/L (135-145) Potassium 4.0 mEq/L mEq/L (3.5-5.2) Chloride 105 mEq/L mEq/L (97-110) Carbon Dioxide 21 mEq/l L mEq/l (22-31) Anion Gap 14 mEq/L mEq/L (8-16) BUN 5 mg/dL L mg/dL (7-23) Creatinine 0.7 mg/dL mg/dL (0.7-1.3) Estimated GFR > 60 Glucose 92 mg/dL mg/dL (70-100) Calcium 9.5 mg/dL mg/dL (8.5-10.4) Troponin I < 0.012 ng/mL ng/mL (0.000-0.034) Departure - Departure Disposition: Law Enforcement/Court/Residential Clinical Impression: Anxiety Chest pain Qualifiers: Chest pain type: unspecified Qualified Code(s): R07.9 - Chest pain, unspecified Condition: Good Instructions: Chest Pain (ED) Referrals: NONE *PRIMARY CARE P,. [Primary Care Provider] - As per Instructions
== END 2018-01-30 01:51 ==
LOC: EDUNIT#
DX: R07.9 Chest pain, unspecified (principal); F41.9 Anxiety disorder, unspecified; I10 Essential (primary) hypertension; F17.200 Nicotine dependence, unspecified, uncomplicated; J45.909 Unspecified asthma, uncomplicated

== ENCOUNTER 2018-02-27 09:11 | Emergency (ER) | payer MEDICAID, OTHER ==
[2018-02-27] MEDS ORDERED: IPRATROPIUM/ALBUTEROL 3 ML DEYVIAL IH ONE (09:23)
--- NOTE | 2018-02-27 09:26 | EDPHY ---
H & P Smoking Status: Heavy smoker Time Seen by Provider: 02/27/18 09:17 HPI/ROS: CHIEF COMPLAINT: M1 hold HISTORY OF PRESENT ILLNESS: 62-year-old male presents to the emergency department by ambulance on M1 hold. The patient admits to drinking alcohol and doing 3 g of cocaine an attempt to kill himself. The patient was apparently found naked and yelling. He states "I just want to ". He denies homicidal ideation. Denies auditory or visual hallucinations. Denies chest pain. He has a history of COPD. He has had productive cough and difficulty breathing. Unclear if he has been taking his medications. No reported trauma. REVIEW OF SYSTEMS: Constitutional: No fever, no chills. Eyes: No double or blurry vision. ENT: No sore throat. Respiratory: Cough, shortness of breath Cardiac: No chest pain. Gastrointestinal: No abdominal pain, vomiting or diarrhea. Genitourinary: No dysuria. Musculoskeletal: No neck or back pain. Skin: No rashes. Neurological: No headache. (Gladys Barnard) Past Medical/Surgical History: Alcoholism, substance abuse, COPD (Gladys Barnard) Social History: Single, lives in [place] (Gladys Barnard) Physical Exam: General Appearance: Alert, no distress. Smells strongly of alcohol. O2 saturation on room air was 87%. He is currently using albuterol nebulizer with O2 sat of 94%. Eyes: Pupils equal and round. Extraocular motions are all intact. ENT: Mouth: Mucous membranes moist. Respiratory: Diffuse expiratory wheezing and rhonchi. No rales. No respiratory distress. Cardiovascular: Regular rate and rhythm. Gastrointestinal: Abdomen is soft and nontender, no masses, no rebound or guarding, bowel sounds normal. Neurological: Uncooperative, cannot determine. Skin: Warm and dry, no rashes. Musculoskeletal: Nontender to palpate along the cervical, thoracic or lumbar spine. Neck is supple. Extremities: Full range of motion and no peripheral edema. Psychiatric: Mildly agitated (Gladys Barnard) Constitutional: Initial Vital Signs Temperature (C) 36.4 C 02/27/18 09:11 Heart Rate 101 H 02/27/18 09:11 Respiratory Rate 22 H 02/27/18 09:11 Blood Pressure 140/97 H 02/27/18 09:11 O2 Sat (%) 89 L 02/27/18 09:11 O2 Delivery Mode Room Air O2 (L/minute) 2 Allergies/Adverse Reactions: levofloxacin [From Levaquin] Allergy (Severe, Verified 02/27/18 09:35) tendinopathy ketorolac [From Toradol] Allergy (Verified 02/27/18 09:35) lisinopril Allergy (Verified 02/27/18 09:35) Home Medications: Medication Instructions Recorded Labetalol HCl [Trandate 100 mg (*)] 100 mg PO BID 08/16/17 Escitalopram Oxalate [Lexapro 10 10 mg PO DAILY 12/21/17 MG] Meloxicam 15 mg PO DAILY 12/21/17 levOFLOXACIN [levAQUIN (*)] 750 mg PO DAILY #10 tab 12/22/17 predniSONE [Deltasone] 40 mg PO DAILY #10 tablet 12/22/17 Medical Decision Making - Diagnostics Imaging: Discussed imaging studies w/ call center trainer Radiologist ED Course/Re-evaluation: 62-year-old male presents to the emergency department on M1 hold. Patient is suicidal. He is also intoxicated with alcohol. Initial serum alcohol was 370. Repeat ETOH breath was 215. Patient had IV normal saline since he was still tachycardic. He also states that he is experiencing symptoms of withdrawal. He was given a mg of Ativan IV. The patient admits to using cocaine prior to arrival, however his tox screen is only positive for marijuana. When the patient is clinically sober, he will be evaluated by mental health. ( Gladys Barnard) The patient was evaluated and managed by the Physician Mellowing Machine Operator. I discussed the patient's presentation and course with the physician boiler assistant operator and agree with the evaluation. My co-signature indicates that I have reviewed this chart and I agree with the findings and plan of care as documented. I am the secondary supervising physician. (Consuelo Granger) Differential Diagnosis: Altered mental status including but not limited to hypoglycemia, infectious process, electrolyte abnormality, head injury and intoxicants. (Gladys Barnard) Other Provider: I assumed care of the patient at 7 o'clock in the morning pending psychiatric disposition. I re-evaluated the patient personally at 9:00 a.m.. He is arousable. The patient complains of nausea. The patient was evaluated by Mental Health. At 11:00 a.m. [facility] informs me the patient is no longer suicidal and contracts for safety. He is well known to their service. The patient's M1 psychiatric hold has been vacated. The patient is comfortable being discharged home. He is given outpatient resources. (Khalif Renteria) Care Turn Over: Care will be turned over to Dr. Gutierrez at 5:00 p.m., shift change. (Gladys Barnard) 11:57 p.m.- Patient was seen by the mental health aged or disabled carer who was unable to fully assess him. Patient continued to endorse suicidal ideation though does seem to be in some alcohol withdrawal and was not able to provide meaningful history. He has received Librium and Ativan so far. I will give him additional Librium. We will continue to monitor him overnight and he will be reassessed by the aged or disabled carer in the morning. (Janny Paz) - Data Points Laboratory Results: Laboratory Results 02/27/18 11:20 02/27/18 11:20 Medications Given: Discontinued Medications Albuterol/Ipratropium (Duoneb) 3 ml IH EDNOW ONE Stop: 02/27/18 09:24 Last Admin: 02/27/18 10:08 Dose: 3 ml Chlordiazepoxide HCl (Librium) 25 mg PO EDNOW ONE Stop: 02/27/18 19:31 Last Admin: 02/27/18 19:39 Dose: 25 mg Chlordiazepoxide HCl (Librium) 25 mg PO EDNOW ONE Stop: 02/27/18 23:49 Last Admin: 02/27/18 23:53 Dose: 25 mg Chlordiazepoxide HCl (Librium) 25 mg PO EDNOW ONE Stop: 02/28/18 04:48 Last Admin: 02/28/18 04:48 Dose: 25 mg Chlordiazepoxide HCl (Librium) 50 mg PO EDNOW ONE Stop: 02/28/18 09:11 Last Admin: 02/28/18 09:18 Dose: 50 mg Sodium Chloride (Ns) 1,000 mls @ 0 mls/hr IV ONCE ONE PRN Reason: Wide Open Stop: 02/27/18 14:09 Last Admin: 02/27/18 14:11 Dose: 1,000 mls Sodium Chloride (Ns) 1,000 mls @ 0 mls/hr IV ONCE ONE PRN Reason: Wide Open Stop: 02/27/18 15:04 Last Admin: 02/27/18 15:04 Dose: 1,000 mls Ibuprofen (Motrin) 600 mg PO EDNOW ONE Stop: 02/28/18 04:42 Last Admin: 02/28/18 04:45 Dose: 600 mg Lorazepam (Ativan Injection) 1 mg IVP EDNOW ONE Stop: 02/27/18 14:18 Last Admin: 02/27/18 14:18 Dose: 1 mg Lorazepam (Ativan Injection) 1 mg IVP EDNOW ONE Stop: 02/27/18 19:31 Last Admin: 02/27/18 19:51 Dose: Not Given Lorazepam (Ativan) 1 mg PO EDNOW ONE Stop: 02/27/18 19:34 Last Admin: 02/27/18 19:39 Dose: 1 mg Departure - Departure Disposition: Home, Routine, Self-Care Clinical Impression: Alcohol dependence, Depression Alcohol intoxication Qualifiers: Complication of substance-induced condition: uncomplicated Qualified Code(s): F10.920 - Alcohol use, unspecified with intoxication, uncomplicated Condition: Good Instructions: Abuse of Alcohol (ED) Additional Instructions: 1. Please follow-up with the mental health resources provided in the ED today. 2. [facility] does operate a 24/7 psychiatric crisis unit located at [facility] [address]. The telephone number for the 24 hour crisis center is [phone]. 3. Please return to the ED if you are feeling suicidal, having thoughts of harming yourself/others or should you feel unsafe or have worsening symptoms. Referrals: [facility] [Clinic] - As per Instructions
[2018-02-27 11:29] LABS: PLATELET COUNT 252 10^3/uL (150-400)
[2018-02-27] MEDS ORDERED: NS 1,000 ML IV ONE ×2 (14:08→15:03)
[2018-02-27] MEDS ORDERED: LORazepam 2 MG/ML INJ ONE (14:16)
[2018-02-27] MEDS ORDERED: LORazepam 2 MG/ML INJ IVP ONE ×2 (14:17→19:30)
[2018-02-27] MEDS ORDERED: chlordiazePOXIDE 25 MG CAP PO ONE ×2 (19:30→23:48)
[2018-02-27] MEDS ORDERED: LORazepam 1 MG TAB ONE (19:32)
[2018-02-27] MEDS ORDERED: LORazepam 1 MG TAB PO ONE (19:33)
[2018-02-28] MEDS ORDERED: IBUPROFEN 600 MG TAB PO ONE (04:41)
[2018-02-28] MEDS ORDERED: chlordiazePOXIDE 25 MG CAP PO ONE ×2 (04:47→09:10)
[2018-02-28 11:47] VITALS: BP 138/76
== END 2018-02-28 11:47 | disposition home or self-care (01) ==
LOC: EDUNIT#
DX: F32.9 Major depressive disorder, single episode, unspecified (principal); J44.9 Chronic obstructive pulmonary disease, unspecified; F17.200 Nicotine dependence, unspecified, uncomplicated; F10.220 Alcohol dependence with intoxication, uncomplicated
CPT/HCPCS: 80305; 96374; G0480; J2060

== ENCOUNTER 2018-09-07 08:11 | Inpatient (IN) | payer MEDICAID ==
[2018-09-07] MEDS ORDERED: predniSONE 20 MG TAB PO ONE (09:16)
[2018-09-07] MEDS ORDERED: IPRATROPIUM/ALBUTEROL 3 ML DEYVIAL IH ONE (09:16)
[2018-09-07] MEDS ORDERED: LORazepam 1 MG TAB PO ONE (09:20)
[2018-09-07] MEDS ORDERED: hydrALAZINE 20 MG/ML VIAL IVP ONE (09:21)
--- NOTE | 2018-09-07 09:31 | EDPHY ---
H & P Stated Complaint: cough x 3 weeks/no fever htn off all bp meds x 5 months Time Seen by Provider: 09/07/18 08:35 HPI/ROS: CHIEF COMPLAINT: Cough and chills, malaise HISTORY OF PRESENT ILLNESS: This is a 63-year-old male known to me from previous emergency department visits. He has a history of COPD, alcohol abuse ( sober for the past 4 months), hypertension, schizoaffective disorder, degenerative joint disease. He presents today concerned about a productive cough that has been present for the past 3 weeks. He has had associated chills. Initially he had a sore throat but this has resolved. He continues to smoke 30 cigarettes daily, which is an improvement over the 3 packs daily that he was smoking. He has not had an influenza vaccination. He also notices that his ribs hurt, he thinks from the persistent coughing. He also reports some diffuse joint pain. He quit taking all of his medicines a few months back, including his antihypertensive medicine. He tells me that he did this because he was feeling depressed and thinking of suicide. He through all of his medications away. He is no longer actively suicidal and relays distracting techniques that he uses when he begins to feel depressed. He describes increased anxiety. REVIEW OF SYSTEMS: A ten system review of systems was performed and is negative with the exception of the items mentioned in the HPI. Past medical history: 1. COPD 2. Hypertension 3. Schizoaffective disorder 4. History of alcohol abuse, no recent alcohol use 5. Tobacco abuse Past surgical history: Social history: He has an apartment in [place] where he lives alone. He also has family on [facility], where he was recently visiting. 30 cigarettes daily. No alcohol for the past 4-5 months. He denies the use of illicit drugs. General Appearance: Alert. Vital signs reviewed. Initial blood pressure 198/ 131. Eyes: Pupils equal and round, no conjunctival injection, no discharge. Anicteric. ENT, Mouth: Mucous membranes are moist, no oropharyngeal erythema or edema. Neck: No lymphadenopathy, supple. Respiratory: Lungs are clear to auscultation; no wheezes, rales, or rhonchi. Cardiovascular: Regular rate and rhythm; no murmur, rub, or gallop. Gastrointestinal: Abdomen is soft and nontender, no masses or organomegaly, bowel sounds normal. Skin: Warm and dry, no rashes on exposed skin, normal color. Back: Nontender to palpation over the thoracolumbar spine. No CVAT. Extremities: No lower extremity edema, no calf tenderness or swelling. Neurological: Alert and oriented. Moving all four extremities easily and equally. Cranial nerves II through XII are examined and are intact (visual acuity not tested). Strength is 5 over 5 bilaterally with testing of all major motor groups. Sensation is intact to light touch over all 4 extremities. Deep tendon reflexes are 2+ in the biceps and knees bilaterally. Gait is normal. [id number] is performed accurately. Psychiatric: Normal affect. - Personal History Current Tetanus Diphtheria and Acellular Pertussis (TDAP): Yes Tetanus Vaccine Date: < 10 YEARS - Medical/Surgical History Hx Asthma: Yes Hx Chronic Respiratory Disease: No Hx Diabetes: No Hx Cardiac Disease: Yes Hx Renal Disease: No Hx Cirrhosis: Yes Hx Alcoholism: Yes Hx HIV/AIDS: No Hx Splenectomy or Spleen Trauma: No Other PMH: MEDICAL- ANXIETY, LIVER DISEASE, ASCITES, IVDA, HEP C+, alcohol and drug abuse/MENTAL HEALTH, htn,cirrohsis, hx of 3 ruptured discs/back surgs/ tonsillectomy, - Social History Smoking Status: Heavy smoker Constitutional: Initial Vital Signs Temperature (C) 36.5 C 09/07/18 08:14 Heart Rate 90 09/07/18 08:14 Respiratory Rate 18 09/07/18 08:14 Blood Pressure 198/131 H 09/07/18 08:14 O2 Sat (%) 95 09/07/18 08:14 O2 Delivery Mode Room Air Allergies/Adverse Reactions: ketorolac [From Toradol] Allergy (Severe, Verified 09/07/18 08:12) Anaphylaxis levofloxacin [From Levaquin] Allergy (Severe, Verified 09/07/18 08:12) tendinopathy lisinopril Allergy (Severe, Verified 09/07/18 08:12) Anaphylaxis Home Medications: Medication Instructions Recorded Ibuprofen [Motrin (*)] 800 mg PO Q6 PRN 09/07/18 Albuterol [Proventil Inhaler HFA 1 - 2 puffs IH Q4H PRN #1 mdi 09/09/18 (*)] Azithromycin [Zithromax] 250 mg PO DAILY #2 tab 12/09/18 Chlorthalidone [Chlorthalidone 25 25 mg PO DAILY #30 tab 09/09/18 mg (*)] amLODIPine BESYLATE [Norvasc 10 mg 10 mg PO DAILY #30 tab 09/09/18 (*)] predniSONE 40 mg PO DAILY #4 tablet 09/09/18 Medical Decision Making Differential Diagnosis: Shortness of breath including but not limited to pulmonary infectious process, COPD, asthma, pulmonary embolus and congestive heart failure. - Data Points Laboratory Results: Laboratory Results 09/07/18 11:10 09/07/18 11:10 Medications Given: Discontinued Medications Acetaminophen (Tylenol) 650 mg PO Q4HRS PRN PRN Reason: Pain, Mild/Fever, Can Take PO Stop: 03/06/19 13:01 Last Admin: 09/09/18 08:55 Dose: 650 mg Albuterol/Ipratropium (Duoneb) 3 ml IH EDNOW ONE Stop: 09/07/18 09:17 Last Admin: 09/07/18 09:37 Dose: 3 ml Albuterol/Ipratropium (Duoneb) 3 ml IH Q6HRS PRN PRN Reason: Short of Breath/Dyspnea Stop: 03/06/19 16:22 Last Admin: 09/09/18 08:54 Dose: 3 ml Amlodipine Besylate (Norvasc) 10 mg PO EDNOW ONE Stop: 09/07/18 12:03 Last Admin: 09/07/18 12:03 Dose: 10 mg Amlodipine Besylate (Norvasc) 5 mg PO DAILY JEROME Stop: 03/07/19 08:59 Last Admin: 09/08/18 08:31 Dose: 5 mg Amlodipine Besylate (Norvasc) 5 mg PO ONCE ONE Stop: 09/08/18 08:47 Last Admin: 09/08/18 10:47 Dose: 5 mg Amlodipine Besylate (Norvasc) 10 mg PO DAILY JEROME Stop: 03/08/19 08:59 Last Admin: 09/09/18 08:56 Dose: 10 mg Azithromycin (Zithromax) 500 mg PO DAILY JEROME PRN Reason: Protocol Stop: 09/11/18 09:01 Last Admin: 09/09/18 08:55 Dose: 500 mg Benzonatate (Tessalon Pearles) 200 mg PO TID PRN PRN Reason: Cough, Mild Stop: 03/07/19 14:01 Last Admin: 09/09/18 09:25 Dose: 200 mg Chlorthalidone (Chlorthalidone) 25 mg PO DAILY JEROME Stop: 03/07/19 08:59 Last Admin: 09/09/18 08:55 Dose: 25 mg Guaifenesin (Mucinex) 1,200 mg PO BID JEROME Stop: 03/07/19 14:14 Last Admin: 09/09/18 08:55 Dose: 1,200 mg Hydralazine HCl (Apresoline) 5 mg IVP EDNOW ONE Stop: 09/07/18 09:22 Last Admin: 09/07/18 11:31 Dose: 5 mg Influenza Virus Vaccine Quadrival (Flulaval Quad [id number] (6mo+)) 0.5 ml IM .ONCE ONE Stop: 09/08/18 15:53 Last Admin: 09/08/18 16:45 Dose: 0.5 ml Lorazepam (Ativan) 1 mg PO EDNOW ONE Stop: 09/07/18 09:21 Last Admin: 09/07/18 09:37 Dose: 1 mg Lorazepam (Ativan) 0.5 mg PO Q4HRS PRN PRN Reason: Anxiety, Able to Take PO Stop: 03/06/19 18:08 Last Admin: 09/08/18 12:41 Dose: 0.5 mg Lorazepam (Ativan) 0.5 mg PO Q4 PRN PRN Reason: Anxiety, Able to Take PO Stop: 03/07/19 14:04 Last Admin: 09/09/18 05:27 Dose: 0.5 mg Nicotine (Nicoderm Cq) 21 mg TD DAILY JEROME Stop: 03/06/19 16:29 Last Admin: 09/09/18 08:54 Dose: 21 mg Ondansetron HCl (Zofran Odt) 4 mg PO Q4HRS PRN PRN Reason: Nausea/Vomiting, Use 1st Stop: 03/06/19 13:01 Last Admin: 09/08/18 08:30 Dose: 4 mg Oxycodone HCl (Oxycodone Ir) 5 - 10 mg PO Q3HRS PRN PRN Reason: Pain, Severe Able to Take PO Stop: 09/17/18 13:01 Last Admin: 09/07/18 13:58 Dose: 10 mg Pneumococcal Polyvalent Vaccine (Pneumovax 23) 0.5 ml IM .ONCE ONE Stop: 09/08/18 15:53 Last Admin: 09/08/18 16:40 Dose: 0.5 ml Prednisone (Prednisone) 60 mg PO EDNOW ONE Stop: 09/07/18 09:17 Last Admin: 09/07/18 09:37 Dose: 60 mg Prednisone (Prednisone) 40 mg PO DAILY JEROME Stop: 03/07/19 08:59 Last Admin: 09/09/18 08:55 Dose: 40 mg Senna/Docusate Sodium (Senokot-S) 1 - 2 tab PO BID JEROME PRN Reason: Protocol Stop: 03/07/19 20:59 Last Admin: 09/09/18 08:55 Dose: 1 tab Departure - Departure Disposition: [facility] Acute Clinical Impression: Acute bronchitis Qualifiers: Bronchitis organism: unspecified organism Qualified Code(s): J20.9 - Acute bronchitis, unspecified Hypertension Qualifiers: Hypertension type: essential hypertension Qualified Code(s): I10 - Essential ( primary) hypertension Condition: Good
[2018-09-07 11:30] LABS: PLATELET COUNT 308 10^3/uL (150-400)
[2018-09-07] MEDS ORDERED: amLODIPine BESYLATE 5 MG TAB ONE (12:01)
[2018-09-07] MEDS ORDERED: amLODIPine BESYLATE 5 MG TAB PO ONE (12:02)
[2018-09-07] MEDS ORDERED: oxyCODONE IR 5 MG TAB PO PRN (13:02)
[2018-09-07] MEDS ORDERED: ONDANSETRON 4 MG/2 ML VIAL IVP PRN (13:02)
[2018-09-07] MEDS ORDERED: ONDANSETRON DISINTEGRATING 4 MG TAB PO PRN (13:02)
[2018-09-07] MEDS ORDERED: HYDROmorphONE/DILAUDID 1 MG/ML INJ IVP PRN (13:02)
--- NOTE | 2018-09-07 13:58 | ASMTLACE ---
ANKUR Acuity / Level of Answers: Yes Care: Did the patient have an inpatient admission? Comorbidities - select Answers: Chronic pulmonary disease all that apply Mild liver or renal disease Other Notes: Hx of cirrhosis and ascites related to alcoholic liver disease and Hep C,, hx of back surgeries, # of Emergency department Answers: 1-2 visits in the last 6 months Social determinants Answers: History of substance abuse (ETOH, street drugs, prescription drugs, etc.) Mental health diagnosis (anxiety, depression, pers onality disorders, etc.) Lack of community resources and/or lack of social support (no pcp, lives alone, transportation, carmela d) Score: 19 Date Signed: 09/07/2018 01:57 PM Electronically Signed By:Dilcia Olivia RN
--- NOTE | 2018-09-07 15:10 | ASMTCMCOM ---
CM Note CM Note Notes: Pt presented to the ED via EMS from home for cough x 3 days and HTN. Pt admitted for HTN and COPD exacerbation. Spoke w/pt and he states he has been living w/"family" (former childhood neighbors that he refers to as family) on [place], [place] for the past 4-5 months. Pt has been sober for 5 months and states he was able to quit drinking on his own when he left [place]. Pt states he also has not been taking any of his other medications (including his antihypertensives and psychiatric medications) for the past 4-5months. Pt has not been seen at the [facility] ([facility]) since 2017. Pt also states he has not followed up with P (pt was followed by Dr Barakat) in more than 6months. Pt states "my anxiety and panic attacks disappeared when [place]." Pt will need to get re-established w/[facility] (this CM called and notified them of pt's return to [place] and hospital admission) and P. Per chart review, pt has been referred to [facility] in the past but he could be re-connected. Pt states he is still living in an apt on [facility] but per past chart review, pt became homeless this past Spring; would need to confirm that pt is either homeless or living in his previous apt. Pt's new cell # is [phone]. Pt states he would not be able to return to [place] because "it would be an inconvenience for my family." See past CM Reports for additional background info if needed PLAN: Hopefully pt stabilizes and then can DC to his apt (or the streets if he is homeless), w/outpatient followup w/[facility], [facility], [facility], etc. Date Signed: 09/07/2018 03:10 PM Electronically Signed By:Dilcia Olivia RN
--- NOTE | 2018-09-07 15:46 | PDGENHP ---
<Karena Quick - Last Filed: 09/07/18 16:38> History and Physical - Chief Complaint Productive cough - History of Present Illness 63 y/o male presents with 3 weeks worth of "cold-like symptoms" of productive cough (yellow phlegm per pt), fevers, nausea, and loss of appetite. He reportedly became suicidal 5 months ago and did not feel like taking his home medications so he flushed them down the toilet. Within that same week, he took a [employer] bus (33 hour bus ride one-way) to [place], [place] and stayed at his family's [facility]. He doesn't believe he was around anyone that was sick. He returned yesterday from his trip. He denies suicidal thoughts now. He has tried in the past to commit suicide by overdose with pain medications. Chest x-ray: COPD exacerbation. After pt was told he had COPD, he wants to quit smoking completely. Past Medical/Surgical History 1. Hypertension 2. Schizoaffective Disorder 3. Anxiety 4. Depression 5. Hep C+ s/p Harvoni 6. IVDA (denies currently using. Would use heroin) 7. Cirrhosis Social 1. Lives in a studio near [facility] 2. Smokes approximately a pack of cigarettes/day. No illicit drug use. Has been 5 months sober of alcohol. He would drink approximately 18 beers/day. Vital Signs 180/120 85 HR 20 respirations 96% RA 36.5c History Information - Allergies/Home Medication List Allergies/Adverse Reactions: ketorolac [From Toradol] Allergy (Severe, Verified 09/07/18 08:12) Anaphylaxis levofloxacin [From Levaquin] Allergy (Severe, Verified 09/07/18 08:12) tendinopathy lisinopril Allergy (Severe, Verified 09/07/18 08:12) Anaphylaxis Home Medications: Albuterol [Proventil Inhaler HFA (*)] 1 - 2 puffs IH Q4H PRN 09/07/18 [Last Taken Unknown] Ibuprofen [Motrin (*)] 800 mg PO Q6 PRN 09/07/18 [Last Taken Unknown] I have personally reviewed and updated: family history, medical history, social history, surgical history - Past Medical History COPD ( Recently experiencing acute COPD exacerbation), hypertension Additional medical history: recent hospitalization for pneumoinia [place] 02/07/17. HTN. COPD. Schizoaffective disorder. Anxiety disorder. Hepatitis C, s/p Harvoni treatment. h/o chronic alcohol use. h/o IV drug abuse - Surgical History Reports: no pertinent surgical hx Additional surgical history: colonoscopy 2016 with polyps. laminectomy. t&A - Family History Additional family history: denies any recent sick family contacts, denies any recent contact with family. Colon cancer in father's side of the family - Social History Smoking Status: Heavy smoker Alcohol Use: Sober Drug Use: None Additional social history: Pt lives alone, is independent in ADLs. Review of Systems Review of Systems: ROS: 10pt was reviewed & negative except for what was stated in HPI & below Constitutional: Reports: fever, malaise EENMT: Reports: sore throat, other (Bad taste in his mouth) Cardiac: Reports: chest pain (sternal chest pain he believes is from coughing so much) Respiratory: Reports: cough, orthopnea, shortness of breath Gastrointestinal: Reports: nausea Genitourinary: Reports: no symptoms Muscolosketal: Reports: back pain, neck pain (Chronic) Skin: Reports: no symptoms Neurological: Reports: anxiety, depressed, emotional problems Hematologic/Lymphatic: Reports: no symptoms Immunologic/Allergy: Reports: other (See allergy list) Physical Exam Physical Exam: Temp Pulse Resp BP Pulse Ox 36.3 C 117 H 19 146/89 H 94 09/07/18 15:26 09/07/18 15:26 09/07/18 15:26 09/07/18 15:26 09/07/18 15:26 O2 (L/minute) 0.5 Constitutional: no apparent distress, appears nourished, not in pain Eyes: PERRL, anicteric sclera, EOMI Ears, Nose, Mouth, Throat: moist mucous membranes, hearing normal, ears appear normal, no oral mucosal ulcers Cardiovascular: regular rate and rhythym, no murmur, rub, or gallop, No edema Peripheral Pulses: 2+: dorsalis-pedis (R) (Radial 2+), dorsalis-pedis (L) ( Radial 2+) Respiratory: expiratory wheeze (bilateral base) Gastrointestinal: normoactive bowel sounds, soft, non-tender abdomen, no palpable masses Genitourinary: no bladder fullness, no bladder tenderness Skin: warm, normal color, no rashes or abrasions, no fluctuance, no induration, No mottled Musculoskeletal: full muscle strength, no muscle tenderness, normal joint ROM, no joint effusions Neurologic: AAOx3, sensation intact bilaterally, CN II-XII Intact Psychiatric: interacting appropriately, not anxious, not encephalopathic, thought process linear Lymph, Heme, Immunologic: no cervical LAD, no supraclavicular LAD Lab Data & Imaging Review 09/07/18 11:10 09/07/18 11:10 WBC 10.39 10^3/uL (3.80-9.50) H 09/07/18 11:10 RBC 4.97 10^6/uL (4.40-6.38) 09/07/18 11:10 Hgb 15.0 g/dL (13.7-17.5) 09/07/18 11:10 Hct 42.9 % (40.0-51.0) 09/07/18 11:10 MCV 86.3 fL (81.5-99.8) 09/07/18 11:10 MCH 30.2 pg (27.9-34.1) 09/07/18 11:10 MCHC 35.0 g/dL (32.4-36.7) 09/07/18 11:10 RDW 13.7 % (11.5-15.2) 09/07/18 11:10 Plt Count 308 10^3/uL (150-400) 09/07/18 11:10 MPV 9.8 fL (8.7-11.7) 09/07/18 11:10 Neut % (Auto) 74.8 % (39.3-74.2) H 09/07/18 11:10 Lymph % (Auto) 16.1 % (15.0-45.0) 09/07/18 11:10 [place] % (Auto) 8.0 % (4.5-13.0) 09/07/18 11:10 Eos % (Auto) 0.5 % (0.6-7.6) L 09/07/18 11:10 Baso % (Auto) 0.4 % (0.3-1.7) 09/07/18 11:10 Nucleat RBC Rel Count 0.0 % (0.0-0.2) 09/07/18 11:10 Absolute Neuts (auto) 7.78 10^3/uL (1.70-6.50) H 09/07/18 11:10 Absolute Lymphs (auto) 1.67 10^3/uL (1.00-3.00) 09/07/18 11:10 Absolute Monos (auto) 0.83 10^3/uL (0.30-0.80) H 09/07/18 11:10 Absolute Eos (auto) 0.05 10^3/uL (0.03-0.40) 09/07/18 11:10 Absolute Basos (auto) 0.04 10^3/uL (0.02-0.10) 09/07/18 11:10 Absolute Nucleated RBC 0.00 10^3/uL (0-0.01) 09/07/18 11:10 Immature Gran % 0.2 % (0.0-1.1) 09/07/18 11:10 Immature Gran # 0.02 10^3/uL (0.00-0.10) 09/07/18 11:10 Sodium 139 mEq/L (135-145) 09/07/18 11:10 Potassium 4.5 mEq/L (3.5-5.2) 09/07/18 11:10 Chloride 105 mEq/L (97-110) 09/07/18 11:10 Carbon Dioxide 26 mEq/l (22-31) 09/07/18 11:10 Anion Gap 8 mEq/L (6-14) 09/07/18 11:10 BUN 8 mg/dL (7-23) 09/07/18 11:10 Creatinine 0.7 mg/dL (0.7-1.3) 09/07/18 11:10 Estimated GFR > 60 09/07/18 11:10 Glucose 102 mg/dL (70-100) H 09/07/18 11:10 Calcium 9.1 mg/dL (8.5-10.4) 09/07/18 11:10 Nasal Influenza A PCR NEGATIVE FOR FLU A (NEGATIVE) 09/07/18 09:40 Nasal Influenza B PCR NEGATIVE FOR FLU B (NEGATIVE) 09/07/18 09:40 Assessment & Plan Plan: 1. COPD exacerbation secondary to possible URI, pneumonia or influenza -Influenza results negative, but will do full respiratory PCR -Afebrile with mild leukocytosis(10.39). Pneumonia unlikely. -Will treat with respiratory treatment duoneb -Prednisone 40 mg PO QD x 5 days -Azithromycin PO x 3 days -EKG for c/o chest pain which may be secondary to the intensity of his coughing. 2. Hypertension -Will continue to monitor -Amlodipine 5 mg PO tomorrow 3. Mental health: denies SI now. Has hallucinations with voices. -Stable -Continue to monitor 4. Tobacco cessation -Counseled pt on cessation -Nicotine patch Diet: regular VTE ppx: SCDs Code: Full Dispo: Admit to inpatient <Alberta Allen - Last Filed: 09/08/18 08:45> History and Physical - History of Present Illness Review of Systems Review of Systems: Physical Exam Physical Exam: Temp Pulse Resp BP Pulse Ox 36.7 C 102 H 16 163/108 H 93 09/08/18 08:00 09/08/18 08:00 09/08/18 08:00 09/08/18 08:31 09/08/18 08:00 O2 (L/minute) 0.5 Lab Data & Imaging Review 09/07/18 11:10 09/07/18 11:10 WBC 10.39 10^3/uL (3.80-9.50) H 09/07/18 11:10 RBC 4.97 10^6/uL (4.40-6.38) 09/07/18 11:10 Hgb 15.0 g/dL (13.7-17.5) 09/07/18 11:10 Hct 42.9 % (40.0-51.0) 09/07/18 11:10 MCV 86.3 fL (81.5-99.8) 09/07/18 11:10 MCH 30.2 pg (27.9-34.1) 09/07/18 11:10 MCHC 35.0 g/dL (32.4-36.7) 09/07/18 11:10 RDW 13.7 % (11.5-15.2) 09/07/18 11:10 Plt Count 308 10^3/uL (150-400) 09/07/18 11:10 MPV 9.8 fL (8.7-11.7) 09/07/18 11:10 Neut % (Auto) 74.8 % (39.3-74.2) H 09/07/18 11:10 Lymph % (Auto) 16.1 % (15.0-45.0) 09/07/18 11:10 [place] % (Auto) 8.0 % (4.5-13.0) 09/07/18 11:10 Eos % (Auto) 0.5 % (0.6-7.6) L 09/07/18 11:10 Baso % (Auto) 0.4 % (0.3-1.7) 09/07/18 11:10 Nucleat RBC Rel Count 0.0 % (0.0-0.2) 09/07/18 11:10 Absolute Neuts (auto) 7.78 10^3/uL (1.70-6.50) H 09/07/18 11:10 Absolute Lymphs (auto) 1.67 10^3/uL (1.00-3.00) 09/07/18 11:10 Absolute Monos (auto) 0.83 10^3/uL (0.30-0.80) H 09/07/18 11:10 Absolute Eos (auto) 0.05 10^3/uL (0.03-0.40) 09/07/18 11:10 Absolute Basos (auto) 0.04 10^3/uL (0.02-0.10) 09/07/18 11:10 Absolute Nucleated RBC 0.00 10^3/uL (0-0.01) 09/07/18 11:10 Immature Gran % 0.2 % (0.0-1.1) 09/07/18 11:10 Immature Gran # 0.02 10^3/uL (0.00-0.10) 09/07/18 11:10 Sodium 139 mEq/L (135-145) 09/07/18 11:10 Potassium 4.5 mEq/L (3.5-5.2) 09/07/18 11:10 Chloride 105 mEq/L (97-110) 09/07/18 11:10 Carbon Dioxide 26 mEq/l (22-31) 09/07/18 11:10 Anion Gap 8 mEq/L (6-14) 09/07/18 11:10 BUN 8 mg/dL (7-23) 09/07/18 11:10 Creatinine 0.7 mg/dL (0.7-1.3) 09/07/18 11:10 Estimated GFR > 60 09/07/18 11:10 Glucose 102 mg/dL (70-100) H 09/07/18 11:10 Calcium 9.1 mg/dL (8.5-10.4) 09/07/18 11:10 Nasal Influenza A PCR NEGATIVE FOR FLU A (NEGATIVE) 09/07/18 09:40 Nasal Influenza B PCR NEGATIVE FOR FLU B (NEGATIVE) 09/07/18 09:40 Assessment & Plan Assessment: Acute bronchitis (Acute) Hypertension (Acute) I evaluated and examined patient with Karena Quick NP. Agree with assessment and plan except as noted in my H&P.
[2018-09-07] MEDS: AZITHROMYCIN 250 MG TAB PO SCH (16:40)
[2018-09-07] MEDS: NICOTINE 21 MG/24 HR PATCH TD SCH (16:40)
--- NOTE | 2018-09-07 17:18 | GHP ---
DATE OF ADMISSION: 09/07/2018 CHIEF COMPLAINT: Cough, COPD exacerbation. I saw and evaluated patient with Karena Costa, nurse practitioner. I agree with her assessment and plan except noted in my notes. HISTORY OF PRESENT ILLNESS: A 63-year-old male with history of COPD, schizoaffective disorder, IV drug use, presenting with persistent productive cough and shortness of breath for 3 weeks. He has been staying in [facility] for the past 5 months with family and just returned to [place] yesterday. He came to the ER today because symptoms are not improved. He has had intermittent diarrhea, myalgias. No headaches. He has been hearing voices like "the Júnior Lim show but cannot understand words." They are not telling him to harm himself or anybody else. He has been off Invega for 5 months. Previously followed at [facility]. REVIEW OF SYSTEMS: I completed a 10-point review of systems, negative except as noted in HPI. PAST MEDICAL HISTORY: Alcohol dependence, COPD, aspiration pneumonitis, hypertension, schizoaffective disorder, prior suicidal ideation, cervical stenosis, IV drug use. Echocardiogram 09/07: Moderate LVH, EF 60% to 65%, diastolic dysfunction. PAST SURGICAL HISTORY: Tonsillectomy, back surgery. FAMILY HISTORY: Sister with hypertension. Mother with hypertension. Dad with emphysema. SOCIAL HISTORY: Just back to [place], has an apartment here. Smoked since age 14, now pack a day, previously 2 packs a day. Denies recent marijuana. Last used alcohol 4 months ago. MEDICATIONS: Stopped 5 months ago. Previously on Norvasc 10 mg daily, chlorthalidone 25 mg twice daily, labetalol 100 mg twice daily, Invega unknown dose. ALLERGIES: Toradol, Levaquin, lisinopril. PHYSICAL EXAMINATION: VITAL SIGNS: Blood pressure on admission 198/131, now 146/89, heart rate 80s to 1-teens, respirations 20, 94% on 0.5 L. GENERAL: Sitting in bed, no acute distress. HEENT: PERRLA. Moist mucous membranes. CV : Regular rate and rhythm. LUNGS: Diffuse expiratory wheezes. Mild rhonchi. ABDOMEN: Soft, nontender, nondistended. Positive bowel sounds. : No Gaines. MUSCULOSKELETAL: 5/5 upper and lower extremities. NEUROLOGIC: 2 through 12 intact. PSYCH: Alert and oriented x3. Very pleasant. DIAGNOSTIC DATA: WBC 10, hemoglobin 15, hematocrit 42, platelets 308. Sodium _ , potassium 4.5, chloride 105, carbon dioxide 26, creatinine 0.7, glucose 102. Chest x-ray, personally reviewed by me, no opacity or effusion. ASSESSMENT AND PLAN: 1. Chronic obstructive pulmonary disease exacerbation: Query bronchitis versus upper respiratory infection. He had a negative influenza, but full respiratory panel is pending. Treat with DuoNebs, prednisone and azithromycin. 2. Accelerated hypertension: No evidence of end-organ damage. He has been off his home medications for 5 months. Will gradually add back starting with Norvasc 5 mg and up titrate as needed. 3. Schizoaffective disorder: Currently without suicidal/homicidal ideations. Previously on Invega. Have to determine prior dose. He should follow up with [facility]. 4. Cervical stenosis: Will treat with Tylenol, Advil. He is not on chronic opioids. 5. Tobacco dependence: Counseled on cessation. Nicotine patch. 6. History of intravenous drug use: Denies. 7. Diet: Regular. 8. Deep venous thrombosis prophylaxis: Lovenox. 9. Disposition: Warrants inpatient admission given chronic obstructive pulmonary disease exacerbation warranting steroids, prednisone, blood pressure management. /[id number]/MODL [id number]
[2018-09-07] MEDS ORDERED: hydrALAZINE 20 MG/ML VIAL IVP PRN (17:41)
[2018-09-07] MEDS: LORazepam 0.5 MG TAB PO PRN (18:22)
[2018-09-08] MEDS: ACETAMINOPHEN 325 MG TAB PO PRN ×4 (02:29→21:51)
[2018-09-08] MEDS: LORazepam 0.5 MG TAB PO PRN ×5 (02:30→21:51)
[2018-09-08] MEDS: IPRATROPIUM/ALBUTEROL 3 ML DEYVIAL IH PRN ×3 (03:25→20:01)
[2018-09-08] MEDS: predniSONE 20 MG TAB PO SCH (08:31)
[2018-09-08] MEDS: NICOTINE 21 MG/24 HR PATCH TD SCH (08:31)
[2018-09-08] MEDS: AZITHROMYCIN 250 MG TAB PO SCH (08:31)
[2018-09-08] MEDS ORDERED: amLODIPine BESYLATE 5 MG TAB PO ONE (08:46)
[2018-09-08] MEDS ORDERED: amLODIPine BESYLATE 5 MG TAB PO SCH (09:00)
--- NOTE | 2018-09-08 09:46 | PDMN ---
Medical Necessity Medical necessity: M100 COPD, A-2 days: 63yo presents w/ COPD exacerbation w/ cough, sputum production, and sob r/t bronchitis vs URI, full resp panel pending , and accelerated hypertension (190s/130s). Pt is tachy HR 100s-110s. Warrants IP admit given COPD exacerbation, started on antibx, IH/Nebs, steroids , antihypertensives Anticipate>2MN for ongoing monitoring and tx of the above. Hx COPD, schizoaffective d/o, IV drug use, etoh dependence, aspiration pneumonia, HTN, cervical stenosis.
[2018-09-08] MEDS: CHLORTHALIDONE 25 MG TAB PO SCH (10:45)
[2018-09-08] MEDS ORDERED: LORazepam 0.5 MG TAB PO PRN (14:05)
--- NOTE | 2018-09-08 15:42 | ASMTCMCOM ---
CM Note CM Note Notes: Spoke with Purnima Rosado ([phone]) from [place] this am. She is a childhood friend who states that Liborio is still having etoh difficulties and is in need of intervention. She feels he needs an inpatient program and that he in fact was at a treatment center in [place] but became ill and returned to her house where he began to drink again. I shared with her resources are limited with medicaid but we will provide resources. CM to follow for needs. Plan: TBD Date Signed: 09/08/2018 03:42 PM Electronically Signed By:Magnolia Noel RN
[2018-09-08] MEDS: guaiFENesin 600 MG TAB.ER PO SCH ×2 (15:44→21:51)
[2018-09-08] MEDS ORDERED: PNEUMOCOCCAL 0.5ML VACCINE VIAL (PNEUMOVAX 23) IM ONE (15:52)
--- NOTE | 2018-09-08 16:10 | HOSPPROG ---
Hospitalist Progress Note Assessment/Plan: #COPD exacerbation: still with extensive wheezing. Cont nebs, pred and Azithro. # Accelerated hypertension: No evidence of end-organ damage. He has been off his home medications for 5 months. Will gradually add back starting with Norvasc, diuretic #Schizoaffective disorder: Currently without suicidal/homicidal ideations. Previously on Invega. Have to determine prior dose. He should follow up with [facility]. # Cervical stenosis: Will treat with Tylenol, Advil. He is not on chronic opioids. #Tobacco dependence: Counseled on cessation. Nicotine patch. # History of intravenous drug use: Denies. # Diet: Regular. DVT ppx: Lovenox #Disp: inpatient admission for nebs, pred. DC tomorrow if clinically improved Subjective: SOB with exertion Objective: Vital Signs Temp Pulse Resp BP Pulse Ox 36.6 C 101 H 16 133/94 H 95 09/08/18 15:50 09/08/18 15:50 09/08/18 15:50 09/08/18 15:50 09/08/18 15:50 Microbiology 09/07/18 16:55 Respiratory Panel (PCR) - Final Nasal, Sinus - Swab No Organism Detected By Pcr 09/07/18 09/08/18 09/09/18 05:59 05:59 05:59 Intake Total 740 Output Total 450 Balance 290 - Time Spent With Patient Time Spent with Patient: greater than 35 minutes Time Spent with Patient: Greater than 35 minutes spent on this patients care, greater than 50% of time spent counseling, educating, and coordinating care regarding the above mentioned plan. - Physical Exam Constitutional: no apparent distress Eyes: PERRL Ears, Nose, Mouth, Throat: moist mucous membranes Cardiovascular: regular rate and rhythym Respiratory: expiratory wheeze, rhonchi Gastrointestinal: normoactive bowel sounds Genitourinary: no bladder fullness Skin: warm Musculoskeletal: full muscle strength Neurologic: AAOx3, CN II-XII Intact Psychiatric: interacting appropriately ICD10 Worksheet Patient Problems: Problems Problem Status Onset Acute bronchitis Acute Hypertension Acute RANDAL (acute kidney injury) Acute Alcohol intoxication Acute Alcohol withdrawal Acute Alcoholism Acute Anxiety Acute Bilateral ankle pain Acute Bilateral knee pain Acute Blood bacterial culture positive Acute Bronchitis Acute Chest pain Acute Chronic alcoholism Acute Chronic obstructive pulmonary disease with acute exacerbation Acute Diarrhea Acute Elevated bilirubin Acute Gravely disabled Acute Hand edema Acute Hypokalemia Acute Hyponatremia Acute Lactic acidosis Acute Leg edema Acute Leukocytosis Acute Leukocytosis Acute Nausea vomiting and diarrhea Acute Pneumonia Acute Pneumonia Acute Schizoaffective disorder, bipolar type Acute
[2018-09-08] MEDS ORDERED: LACTULOSE 20 GM/30 ML UDCUP PO PRN (16:11)
[2018-09-08] MEDS ORDERED: MAGNESIUM HYDROXIDE 30 ML UDCUP PO PRN (16:11)
[2018-09-08] MEDS ORDERED: POLYETHYLENE GLYCOL 3350 17 GM PKT PO PRN (16:11)
[2018-09-08] MEDS ORDERED: BISACODYL 10 MG SUPP PR PRN (16:11)
[2018-09-08] MEDS: BENZONATATE 100 MG CAP PO PRN (21:51)
[2018-09-08] MEDS: SENNOSIDES/DOCUSATE SODIUM TAB PO SCH (21:52)
[2018-09-09] MEDS: LORazepam 0.5 MG TAB PO PRN (05:27)
[2018-09-09] MEDS: NICOTINE 21 MG/24 HR PATCH TD SCH (08:54)
[2018-09-09] MEDS: IPRATROPIUM/ALBUTEROL 3 ML DEYVIAL IH PRN (08:54)
[2018-09-09] MEDS: SENNOSIDES/DOCUSATE SODIUM TAB PO SCH (08:55)
[2018-09-09] MEDS: guaiFENesin 600 MG TAB.ER PO SCH (08:55)
[2018-09-09] MEDS: predniSONE 20 MG TAB PO SCH (08:55)
[2018-09-09] MEDS: ACETAMINOPHEN 325 MG TAB PO PRN (08:55)
[2018-09-09] MEDS: CHLORTHALIDONE 25 MG TAB PO SCH (08:55)
[2018-09-09] MEDS: AZITHROMYCIN 250 MG TAB PO SCH (08:55)
[2018-09-09] MEDS ORDERED: amLODIPine BESYLATE 5 MG TAB PO SCH (09:00)
[2018-09-09] MEDS: BENZONATATE 100 MG CAP PO PRN (09:25)
[2018-09-09 11:44] VITALS: BP 152/113
--- NOTE | 2018-09-09 12:21 | ASMTCMCOM ---
CM Note CM Note Notes: Patient has discharge orders. He is to discharge home and has a ride from his friend. No needs at this time. Plan: to discharge home and hopefully resume care with [facility]. Date Signed: 09/09/2018 12:20 PM Electronically Signed By:Magnolia Noel RN
--- NOTE | 2018-09-09 13:09 | GDS ---
DISCHARGE DIAGNOSES: 1. Accelerated hypertension. 2. Schizoaffective disorder. 3. Chronic obstructive pulmonary disease exacerbation. 4. Anxiety, depression. 5. Hepatitis C, status post Harvoni. 6. History of intravenous drug use. 7. Cirrhosis. 8. Alcohol use. HISTORY OF PRESENT ILLNESS: 63-year-old male with schizoaffective disorder, hypertension presents to [facility] with 3 weeks of cold-like symptoms. These include a productive cough of yellow of phlegm, fevers, nausea , and loss of appetite. He has been living in [facility] for the past 5 months and came here because Medicaid was not accepted there. He reportedly became suicidal 5 months ago and did not feel like taking any of his home medications, so he flushed them down the toilet. He has been off these since that time. He denies any homicidal or suicidal ideations. He does have some hallucinations that Júnior Lim is talking to him, but he can understand what he is saying. HOSPITAL COURSE: 1. COPD exacerbation: Possible bronchitis. No pneumonia. Respiratory panel was negative. Given productive sputum, treated with prednisone, azithromycin, and DuoNeb. He is now stable on room air, 93%. He will be discharged on 2 more days of prednisone and azithromycin. He was counseled on smoking cessation. 2. Tobacco dependence: Counseled on cessation. 3. Alcohol use: Counseled on cessation. 4. Schizoaffective disorder: He was previously followed by [facility]. Was on Invega Dep[place] shots, but he cannot recall the dose. He is currently not suicidal or homicidal. He can follow up as an outpatient. 5. Cervical stenosis: Treated with Tylenol and Advil. He is not on chronic pain medications. 6. Accelerated hypertension: He has been off his medications for 5 months. Blood pressure is much improved here. He was previously on Norvasc 10 mg, chlorthalidone 25 mg b.i.d., and labetalol. Pressures have been controlled on Norvasc 10 and chlorthalidone 25 here. We will continue this as an outpatient. 7. History of IV drug use: He denies. DISPOSITION: Patient is stable for discharge home. NEW MEDICATIONS: 1. Albuterol. 2. Prednisone 40 mg daily x2. 3. Azithromycin 250 x 2. FOLLOW UP: 1. [facility], Dr. Barakat. 2. Primary care physician. PHYSICAL EXAMINATION: VITAL SIGNS: Today, temperature afebrile 37, blood pressure 137/94, heart rate 90, respirations 18, 93% on room air. GENERAL: He is well appearing in no acute distress. HEENT: PERRLA. Moist mucous membranes. CV: Regular rate and rhythm. LUNGS: Rhochi, but moving more air. GI: Soft, nontender, nondistended with positive bowel sounds. : No Gaines. MUSCULOSKELETAL: 5/5 upper lower extremity strength. NEURO: 2 through 12 intact. PSYCH: He is alert and oriented x3. He is able to express the risk of drinking and smoking, and how it is bad for his health. Time spent on discharge: Greater than 30 minutes counseling patient on medications and followup plan. /[id number]/MODL [id number]
== END 2018-09-09 12:32 | disposition home or self-care (01) | DRG 140 ==
LOC: F1N 13:41
PROVIDERS: ADMIT Internal Medicine; ATTEND Internal Medicine
DX: J44.9 Chronic obstructive pulmonary disease, unspecified (principal); K74.60 Unspecified cirrhosis of liver; F25.9 Schizoaffective disorder, unspecified; I10 Essential (primary) hypertension; F41.8 Other specified anxiety disorders; B19.20 Unspecified viral hepatitis C without hepatic coma; F17.200 Nicotine dependence, unspecified, uncomplicated; M48.02 Spinal stenosis, cervical region; Z72.89 Other problems related to lifestyle; Z23 Encounter for immunization
CPT/HCPCS: 96374; G0008; G0009; J0360; J7512

== ENCOUNTER 2018-09-17 13:02 | Inpatient (IN) | payer MEDICAID ==
[2018-09-17] MEDS ORDERED: LORazepam 1 MG TAB PO ONE ×3 (13:20→22:59)
--- NOTE | 2018-09-17 13:22 | EDPHY ---
H & P Source: Patient, RN/MD, Old records Exam Limitations: Intoxication - Personal History Tetanus Vaccine Date: < 10 YEARS - Medical/Surgical History Hx Asthma: Yes Hx Chronic Respiratory Disease: No Hx Diabetes: No Hx Cardiac Disease: Yes Hx Renal Disease: No Hx Cirrhosis: Yes Hx Alcoholism: Yes Hx HIV/AIDS: No Hx Splenectomy or Spleen Trauma: No Other PMH: MEDICAL- ANXIETY, LIVER DISEASE, ASCITES, IVDA, HEP C+, alcohol and drug abuse/MENTAL HEALTH, htn,cirrohsis, hx of 3 ruptured discs/back surgs/ tonsillectomy, - Social History Smoking Status: Heavy smoker Time Seen by Provider: 09/17/18 13:19 HPI/ROS: HPI: This is a 63-year-old male who presents with Chief Complaint: M1 hold Location: psych Quality: M1 hold Duration: Few weeks Signs and Symptoms: no auditory hallucinations, no visual hallucinations, + suicidal ideation with a plan, + homicidal ideation, no paranoia Timing: Acute on chronic Severity: Moderate Context: Patient has a history of alcohol and drug abuse presents on M1 hold from police. He admits to drinking alcohol today and having thoughts the last several weeks a committing suicide. He reports that if he is unable to commit suicide than he is going to kill someone instead. Upon arrival to the emergency room patient had a bowel movement on the floor. Upon arrival for the interview, patient yelling and screaming. Modifying Factors: None Comment: ROS: A comprehensive 10 system review of systems is otherwise negative aside from elements mentioned in the history of present illness. MEDICAL/SURGICAL/SOCIAL HISTORY: Medical/surgical history: ANXIETY, LIVER DISEASE, ASCITES, IVDA, HEP C+, alcohol and drug abuse/MENTAL HEALTH, htn, cirrhosis, hx of 3 ruptured discs/ back surgs/ tonsillectomy Social history: Heavy smoker. Family history noncontributory. CONSTITUTIONAL: awake and alert, no obvious distress HEENT: Atraumatic and normocephalic, PERRL, EOMI. Nares patent; no rhinorrhea; no nasal mucosal edema. Tympanic membranes clear. Oropharynx clear, no exudate and moist pink mucosa. Airway patent. No lymphadenopathy. No meningismus. Cardiovascular: Normal S1/S2, regular rate, regular rhythm, without murmur rub or gallop. PULMONARY/CHEST: Symmetrical and nontender. Clear to auscultation bilaterally. Good air movement. No accessory muscle usage. ABDOMEN: Soft, nondistended, nontender, no rebound, no guarding, no peritoneal signs, no masses or organomegaly. No CVAT. EXTREMITIES: 2/2 pulses, strength 5/5, no deformities, no clubbing, no cyanosis or edema. NEUROLOGICAL: no focal neuro deficits. GCS 15. SKIN: Warm and dry, no erythema. no rash. Good capillary refill. PSYCH: Poor eye contact, flight of ideas, tangential disorganized thought process, poor insight and judgment, no auditory hallucinations, no visual hallucinations, + suicidal ideation with a plan, + homicidal ideation, no paranoia (Otf,Terra) Constitutional: Initial Vital Signs Temperature (C) 37 C 09/17/18 13:48 Heart Rate 78 09/17/18 13:48 Respiratory Rate 18 09/17/18 13:48 Blood Pressure 135/78 H 09/17/18 13:48 O2 Sat (%) 95 09/17/18 13:48 O2 Delivery Mode Room Air Allergies/Adverse Reactions: ketorolac [From Toradol] Allergy (Severe, Verified 09/07/18 08:12) Anaphylaxis levofloxacin [From Levaquin] Allergy (Severe, Verified 09/07/18 08:12) tendinopathy lisinopril Allergy (Severe, Verified 09/07/18 08:12) Anaphylaxis Home Medications: Medication Instructions Recorded Albuterol [Proventil Inhaler HFA 1 - 2 puffs IH Q4H PRN #1 mdi 09/09/18 (*)] Ibuprofen [Motrin (*)] 200 mg PO DAILY PRN 09/18/18 Medical Decision Making - Diagnostics EKG Interpretation: EKG interpreted by me shows sinus tachycardia. Normal interval and axis. QRS is normal there is no significant ST elevation or depression. No arrhythmia. The rate is 107 (Augustina,Vince S) Imaging Results: Imaging Impressions Guidance Ultrasound 09/18/18 00:00 Impression: 5 Armenian double lumen peripherally inserted central catheter is ready to use. PICC Line Insertion 09/18/18 10:12 Impression: 5 Armenian double lumen peripherally inserted central catheter is ready to use. Chest X-Ray 09/18/18 10:13 Impression: Large lung volumes. Otherwise negative. ED Course/Re-evaluation: 1320: Agree with M1 hold for suicidal ideation, homicidal ideation. Labs and UDS ordered. P.o. Ativan 1 mg given. 1544: Multiple attempts made by texts and are and to obtain laboratory studies. Breathalyzer ordered. Patient has been sleeping for the last few hours and has not given a urine sample. 1625: Unable to perform breathalyzer due to uncoordination from alcohol intoxication. 1640: [id number] 1700: End of shift. Signed over to Dr. Jackman pending medical clearance and mental health evaluation. This patient was seen under the supervision of my secondary supervising physician. I evaluated care for this patient independently. Discussed this patient with Dr. Jackman who did not see the patient. (Mihaela Vanessa) Patient has been evaluated been a mental health and apparently was worrisome interview and they are considering placement . Labs are being drawn. At about 8:15 p.m. Patient complains of chest pain. When I talked with the patient he said he has been having chest pain for several hours though has not been reported. He says left anterior chest to left shoulder. He also complains of anxiety in request and Ativan. Exam of heart and lungs is normal. Patient is given Ativan orally Re-evaluation at 2100-- patient is stable. No longer having chest pain. He still feels somewhat anxious (Vince Jackman) 0700AM: No acute events overnight. Signed over to Dr. Granger. (Esa Love ) Differential Diagnosis: Differential diagnosis includes but is not limited to major depression, anxiety disorder, schizophrenia, bipolar disorder, intoxicant use, suicidal ideation, psychosis, yesenia. (Mihaela Vanessa) Differential diagnosis for the patient's shortness of breath was considered including but not limited to pulmonary infectious processes, COPD exacerbation, anxiety, panic attack, pulmonary edema, congestive heart failure, and cardiac causes. (Consuelo Granger) Care Turn Over: Dr. Moser at 2100. (Vince Jackman) I assumed care of this patient from Dr. Esa Love at 7:00 a.m., change of shift. Patient has been seen by mental health. The patient was evaluated by mental health. Plan to admit to [address] [place] [address]. Patient unfortunately became more tachycardic and hypertensive. He was seen by the inpatient medicine service as a medical consult here in the emergency department prior to his transfer to [address] [place] [address]. Patient has now developed mild to moderate alcohol withdrawal, the and complaints of shortness of breath. On re- examination the patient is tachycardic, wheezy, and reports being very anxious. Chest x-ray demonstrates no acute infiltrative process. Patient received a DuoNeb as well as albuterol neb. He will need to be admitted to the ICU secondary to the fact that he is on an M1 hold. He is not O2 dependent this point. Troponin was ordered. Patient will be admitted to Dr. Liu service. (Consuelo Granger) - Data Points Laboratory Results: Laboratory Results 09/17/18 21:30 09/17/18 21:30 09/18/18 04:00 Urine Color YELLOW Urine Appearance CLEAR Urine pH 6.0 (5.0-7.5) Ur Specific Arnold 1.017 (1.002-1.030) Urine Protein NEGATIVE (NEGATIVE) Urine Ketones 1+ H (NEGATIVE) Urine Blood NEGATIVE (NEGATIVE) Urine Nitrate NEGATIVE (NEGATIVE) Urine Bilirubin NEGATIVE (NEGATIVE) Urine Urobilinogen NEGATIVE EU EU (0.2-1.0) Ur Leukocyte Esterase NEGATIVE (NEGATIVE) Urine Glucose NEGATIVE (NEGATIVE) Urine Opiates Screen NEGATIVE (NEGATIVE) Urine Barbiturates NEGATIVE (NEGATIVE) Ur Phencyclidine Scrn NEGATIVE (NEGATIVE) Ur Amphetamine Screen NEGATIVE (NEGATIVE) U Benzodiazepines Scrn NON-NEGATIVE H (NEGATIVE) Urine Cocaine Screen NEGATIVE (NEGATIVE) U Marijuana (THC) Screen NON-NEGATIVE H (NEGATIVE) Medications Given: Amlodipine Besylate (Norvasc) 10 mg PO DAILY JEROME Stop: 03/17/19 10:29 Last Admin: 09/18/18 11:45 Dose: 10 mg Chlorthalidone (Chlorthalidone) 25 mg PO DAILY JEROME Stop: 03/17/19 10:29 Last Admin: 09/18/18 11:45 Dose: 25 mg Prednisone (Prednisone) 40 mg PO DAILY JEROME Stop: 03/17/19 10:29 Last Admin: 09/18/18 11:46 Dose: 40 mg Discontinued Medications Sodium Chloride (Ns) 1,000 mls @ 0 mls/hr IV ONCE ONE PRN Reason: Wide Open Stop: 09/18/18 01:40 Last Admin: 09/18/18 02:21 Dose: 1,000 mls Lorazepam (Ativan) 1 mg PO EDNOW ONE Stop: 09/17/18 13:21 Last Admin: 09/17/18 15:12 Dose: Not Given Lorazepam (Ativan) 1 mg PO EDNOW ONE Stop: 09/17/18 20:33 Last Admin: 09/17/18 20:51 Dose: 1 mg Lorazepam (Ativan) 2 mg PO EDNOW ONE Stop: 09/17/18 23:00 Last Admin: 09/17/18 23:00 Dose: 2 mg Promethazine HCl (Phenergan) 6.25 mg IVP ONCE ONE Stop: 09/18/18 01:40 Last Admin: 09/18/18 02:21 Dose: 6.25 mg Departure - Departure Disposition: [facility] Acute Clinical Impression: Alcoholic intoxication without complication, Verbalizes suicidal thoughts, Homicidal thoughts Condition: Good
--- NOTE | 2018-09-17 21:09 | CPEKG ---
Test Reason : OPEN Blood Pressure : / mmHG Vent. Rate : 107 BPM Atrial Rate : 109 BPM P-R Int : 141 ms QRS Dur : 088 ms QT Int : 335 ms P-R-T Axes : 081 083 051 degrees QTc Int : 447 ms Sinus tachycardia Borderline right axis deviation Confirmed by Vince Jackman ([id number]) on 09/17/2018 9:09:17 PM Referred By: Confirmed By:Vince Jackman
[2018-09-17 21:43] LABS: PLATELET COUNT 301 10^3/uL (150-400)
[2018-09-17] MEDS ORDERED: LORazepam 1 MG TAB ONE (22:59)
[2018-09-18] MEDS ORDERED: LORazepam 1 MG TAB ONE (01:38)
[2018-09-18] MEDS ORDERED: NS 1,000 ML IV ONE (01:39)
[2018-09-18] MEDS ORDERED: PROMETHAZINE HCL 25 MG/ML INJ IVP ONE (01:39)
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
--- NOTE | 2018-09-18 09:20 | ASMTTCLDSP ---
TLC Discharge Disposition Disposition: Answers: Admit Disposition Notes: Notes: Admit 3N. Discharge Concerns/Recommendations: Notes: In consultation with [facility] ED physician, Consuelo Granger MD and on-call psychiatrist, Zurdo Anderson MD, both concurred that pt appears to meet 27-65 criteria requiring psychiatric hospitalization as pt appears to be at risk of harm to self due to a mental illness condition. Pt was given (but declined to sign) the [facility] prohibited belongings list while in the ED. Was patient given the Answers: Yes Inpatient Behavioral Health Prohibited Belongings List while in the ED? For inpatient Zurdo Anderson MD admission, the following psychiatrist agreed to accept patient for admission to Behavioral Health ([facility]): Type of Hold: Answers: M1/72-hour Hold Hold initiated by: Answers: Police Date Signed: 09/18/2018 09:19 AM Electronically Signed By:Blaine Okeefe
[2018-09-18] MEDS ORDERED: ALTEPLASE 2 MG VIAL IVP PRN (10:12)
[2018-09-18] MEDS ORDERED: ACETAMINOPHEN 325 MG TAB PO PRN (10:13)
[2018-09-18] MEDS ORDERED: ONDANSETRON 4 MG/2 ML VIAL IVP PRN (10:13)
[2018-09-18] MEDS ORDERED: ZOLPIDEM TARTRATE 5 MG TAB PO PRN (10:13)
[2018-09-18] MEDS ORDERED: ALBUTEROL 60 PUFFS/8 GM MDI IH PRN (10:14)
[2018-09-18] MEDS ORDERED: chlordiazePOXIDE 25 MG CAP PO PRN (10:18)
--- NOTE | 2018-09-18 10:41 | PDGENHP ---
History and Physical History and Physical: CC: Suicidal and homicidal ideation, dyspnea HISTORY: This patient presented to the emergency room yesterday complaining of suicidal ideation and stating that if he could not kill himself he would kill someone else. He was angry and agitated and had had some alcohol. There is also marijuana and benzodiazepine in his urine tox screen testing in the ER. He was placed on M1 hold by police and brought in by police, and he had been seen by the mental health team and it was elected to admit the patient to the Behavioral Health Unit. I was called to see the patient for medical history and physical evaluation prior to transfer to the Behavioral Health Unit The patient is now been in the ER for approximately 20 hr. He says he is very short of breath, still endorses some suicidal ideation. He has been coughing, but no chest pain and no fevers. He does not notice pain or swelling in his legs. The patient does not feel anxious but says he is feels a sense of panic which is chronic for him and says he feels like he needs medication for his panic symptoms. Notably the patient was just here September 07- with acute respiratory symptoms and felt to have a COPD exacerbation for which he was treated with bronchodilators steroids and azithromycin. In addition at that time he was having accelerated hypertension off of his usual outpatient blood pressure medicines. His blood pressure did come under control with some Norvasc and chlorthalidone but apparently he was not discharged on those medicines were did not fill out the prescriptions. The patient does drink alcohol but says he drinks a 6 pack perhaps twice a week and does not drink on the days in between. He has a history of IV drug use in the past but has not been using any street drugs recently. Admits to marijuana use ROS: A comprehensive 10 system review revealed no other significant findings PAST MEDICAL HISTORY: COPD, tobacco abuse Hypertension Aspiration episode Chronic alcohol use, previously daily alcohol use, alcohol withdrawal Schizo affective disorder Prior episodes of suicidal ideation Previous IV drug use Cervical spine stenosis Diastolic dysfunction FAMILY MEDICAL HISTORY: Hypertension Emphysema Hepatitis C, ?? Cirrhosis (mentioned in 1 previous chart note but no specific records available documenting this) SOCIAL HISTORY: Lives alone in apartment Tobacco 1 pack a day smoking since age 14 States drinks alcohol approximately 2 days per week but will drink a 6 pack when he does MEDICATIONS: The patients list has been reconciled by our clinical pharmacist in the EMR. I have reviewed the list and ordered appropriate medicines. PHYSICAL EXAMINATION: Vital Signs: On arrival to ER yesterday his pulse was 78, blood pressure 135/ 78 and respirations and temperature normal with good room air oxygen saturation. At this time he has had pulses in the 1 10-115 range since last evening and has become hypertensive currently 160/95. He has no fever and is not hypoxemic Examination: General: alert, oriented, good mentation, relaxed Skin: warm, dry, good color, no rash HEENT: normal Neck: no mass or jvd Resps: relaxed Lungs: clear breath sounds Heart: regular, no murmur Abdomen: soft, nondistended, nontender, +BS, no mass Upper Extremities: normal Lower Extremities: no edema, warm No Bleeding or bruising Neurologic: normal speech/language, normal chainstitch pants outseamer, no focal weakness IV site: looks normal LABORATORY DATA: White blood cell count 12.9 1000 with predominance of neutrophils otherwise unremarkable CBC Metabolic acidosis is evident on a chemistry panel yesterday with a CO2 of 18 anion gap of 15 normal glucose and electrolytes, normal liver panel Urine drug screen is notable for marijuana and benzodiazepine RADIOLOGY STUDIES: None done at present 12 LEAD EKG: Not done at present ASSESSMENT: * Acute respiratory failure with shortness of breath, diffuse bronchitic wheezing and tachycardia -suspect acute bronchitis and COPD exacerbation -chest left here on September 09 for treatment of similar episode to which he responded bronchodilator steroid and azithromycin * Suicidal ideation in a patient with schizoaffective disorder and previous episodes of suicidal ideation -he was deemed to have serous enough issue to be recommended for behavioral health admission by the mental health assess * Uncontrolled hypertension with longstanding history of hypertension, apparently did not get medicines upon discharge here last week * Alcohol abuse; at present it does not appear that he drinks often enough to develop alcohol withdrawal, however as he is tachycardic and complaining of some symptoms of panic would watch for any withdrawal that might develop * PLANS: * Change plan admit to ICU for medical care in the setting of M1 hold for suicidal ideation * Bronchodilators steroid for his respiratory issues * Will check a chest x-ray respiratory panel and determine if a Zithromax or other antibiotic indicated * Follow his vital signs closely * Continue M1 hold for suicidal ideation * Thiamin replacement * Doubt he will withdrawal from alcohol but will watch closely * Resume chlorthalidone and calcium sera for hypertension, he should be discharged on these I have reviewed the patient's case in detail with Dr. Consuelo Granger I have reviewed the patient's past medical records as part of this assessment, including previous hospital admission records
--- NOTE | 2018-09-18 11:31 | PDMN ---
Medical Necessity Medical necessity: Pt meets IP criteria as of 09/18/2018 per and [facility] B-014- IP (schizophrenia) and M-100 (COPD); est los > 2mn for ongoing tx and management of COPD exacerbation with acute respiratory failure and suicidal ideation in a pt with hx of schizophrenia on M1 hold; requiring respiratory support, ICU care, crisis stabilization, and med management.
[2018-09-18] MEDS: CHLORTHALIDONE 25 MG TAB PO SCH (11:45)
[2018-09-18] MEDS: predniSONE 20 MG TAB PO SCH (11:46)
[2018-09-18 12:18] LABS: PLATELET COUNT 245 10^3/uL (150-400)
[2018-09-18] MEDS ORDERED: ALBUTEROL 3 ML DEYVIAL IH ONE (14:15)
[2018-09-18] MEDS ORDERED: NS 500 ML IV ONE (14:16)
[2018-09-18] MEDS: BUDESONIDE/FORMOTEROL 80/4.5 60 PUFFS/MDI IH SCH ×2 (16:06→19:47)
[2018-09-18] MEDS ORDERED: AZITHROMYCIN 250 MG TAB PO ONE (17:09)
[2018-09-18] MEDS ORDERED: IBUPROFEN 600 MG TAB PO PRN (17:26)
[2018-09-18] MEDS: oxyCODONE IR 5 MG TAB PO PRN (19:22)
[2018-09-18] MEDS: IPRATROPIUM/ALBUTEROL 3 ML DEYVIAL IH PRN (19:50)
[2018-09-18] MEDS: LORazepam 1 MG TAB PO PRN (20:59)
[2018-09-18] MEDS: MELATONIN 3 MG TAB PO SCH (20:59)
[2018-09-19] MEDS: oxyCODONE IR 5 MG TAB PO PRN ×5 (05:06→21:41)
[2018-09-19] MEDS: LORazepam 1 MG TAB PO PRN ×5 (05:06→21:41)
[2018-09-19 05:31] LABS: PLATELET COUNT 239 10^3/uL (150-400)
--- NOTE | 2018-09-19 08:35 | ASMTLACE ---
ANKUR Acuity / Level of Answers: Yes Care: Did the patient have an inpatient admission? Comorbidities - select Answers: Chronic pulmonary disease all that apply Other Notes: HTN; Hep C # of Emergency department Answers: 3-4 visits in the last 6 months Social determinants Answers: History of substance abuse (ETOH, street drugs, prescription drugs, etc.) Mental health diagnosis (anxiety, depression, pers onality disorders, etc.) Score: 15 Date Signed: 09/19/2018 08:35 AM Electronically Signed By:Josselin Blake
[2018-09-19] MEDS ORDERED: ONDANSETRON 4 MG/2 ML VIAL IVP PRN (08:50)
[2018-09-19] MEDS ORDERED: ONDANSETRON DISINTEGRATING 4 MG TAB PO PRN (08:51)
[2018-09-19] MEDS: ENOXAPARIN 40 MG/0.4 ML SYR SC SCH (09:00)
[2018-09-19] MEDS: CHLORTHALIDONE 25 MG TAB PO SCH (09:01)
[2018-09-19] MEDS: predniSONE 20 MG TAB PO SCH (09:01)
[2018-09-19] MEDS: THIAMINE HCL 100 MG TAB PO SCH (09:01)
[2018-09-19] MEDS: AZITHROMYCIN 250 MG TAB PO SCH (09:01)
[2018-09-19] MEDS: BUDESONIDE/FORMOTEROL 80/4.5 60 PUFFS/MDI IH SCH ×2 (09:13→20:49)
--- NOTE | 2018-09-19 10:34 | ASMTCASEMG ---
Living Arrangements What is your living Answers: Alone arrangement? Who do you live with? Type Of Residence What kind of residence do Answers: Homeless you live in? Discharge Plan Comments Coordination Status Comments Notes: Patient is a 63yo , homeless male who comes to [facility] ED with suicidal and homicidal ideation. Patient was placed on an M1 hold by the police who also brought him to [facility]. Patient has a hx of IV drug use and ETOH. Patient has multiple medical problems as well. He has been evaluated by TLC and determined to need psychiatric inpatient care. Patient will discharge to a behavioral health unit when medically clear. CM available for any d/c needs that might arise. Date Signed: 09/19/2018 09:53 AM Electronically Signed By:Maggie Guzman LCSW
--- NOTE | 2018-09-19 12:14 | HOSPPROG ---
Hospitalist Progress Note Assessment/Plan: ASSESSMENT: * Acute respiratory failure with shortness of breath, diffuse bronchitic wheezing and tachycardia -suspect acute bronchitis and COPD exacerbation -Admitted on September 09 for treatment of similar episode to which he responded bronchodilator steroid and azithromycin * Suicidal ideation in a patient with schizoaffective disorder and previous episodes of suicidal ideation -he was deemed to have serious enough issue to be recommended for behavioral health admission by the mental health assess * Uncontrolled hypertension with longstanding history of hypertension, apparently did not get medicines upon discharge here last week * Alcohol abuse; at present it does not appear that he drinks often enough to develop alcohol withdrawal, however as he is tachycardic and complaining of some symptoms of panic would watch for any withdrawal that might develop PLANS: * Admitted for medical care in the setting of M1 hold for suicidal ideation * Bronchodilators, Prednisone 40 mg qd, Azithromycin for his respiratory issues * Will check a chest x-ray respiratory panel and determine if a Zithromax or other antibiotic indicated * Follow his vital signs closely * Continue M1 hold for suicidal ideation * Thiamin replacement * Doubt he will withdrawal from alcohol but will watch closely * Resume chlorthalidone and calcium sera for hypertension, he should be discharged on these Subjective: Patient reports continuing SOB and wheezing Objective: Vital Signs Temp Pulse Resp BP Pulse Ox 36.8 C 80 12 129/75 H 94 09/19/18 10:00 09/19/18 10:00 09/19/18 10:00 09/19/18 10:00 09/19/18 10:00 Laboratory Results 09/19/18 05:15 09/19/18 05:15 09/18/18 09/19/18 09/20/18 05:59 05:59 05:59 Intake Total 1950 300 Output Total 950 Balance 1000 300 - Physical Exam Constitutional: no apparent distress Eyes: PERRL Ears, Nose, Mouth, Throat: moist mucous membranes Cardiovascular: regular rate and rhythym Respiratory: no respiratory distress, expiratory wheeze Gastrointestinal: soft, non-tender abdomen Skin: warm Neurologic: AAOx3 Psychiatric: depressed, suicidal ideation ICD10 Worksheet Patient Problems: Problems Problem Status Onset Alcoholic intoxication without complication Acute Homicidal thoughts Acute Verbalizes suicidal thoughts Acute RANDAL (acute kidney injury) Acute Acute bronchitis Acute Alcohol intoxication Acute Alcohol withdrawal Acute Alcoholism Acute Anxiety Acute Bilateral ankle pain Acute Bilateral knee pain Acute Blood bacterial culture positive Acute Bronchitis Acute Chest pain Acute Chronic alcoholism Acute Chronic obstructive pulmonary disease with acute exacerbation Acute Diarrhea Acute Elevated bilirubin Acute Gravely disabled Acute Hand edema Acute Hypertension Acute Hypokalemia Acute Hyponatremia Acute Lactic acidosis Acute Leg edema Acute Leukocytosis Acute Leukocytosis Acute Nausea vomiting and diarrhea Acute Pneumonia Acute Pneumonia Acute Schizoaffective disorder, bipolar type Acute
--- NOTE | 2018-09-19 16:07 | ASMTLCPROG ---
Notes Note: Notes: TLC requested to meet with pt for reassessment prior to inpt admission on 3N. Pt stated he was recently diagnosed with COPD and also recently lost his section 8 housing in [place]. Pt stated if he is discharged he will kill himself. Due to pt's inability to contract for safety, ongoing suicidal statement per additional consultation with Dr. Anderson pt will be admitted to 3. Additional contact made with [employer]. Was informed pt was reassessed by Hospitalist. Pt will not be medically cleared today, likely on 09/20. When med. cleared will require inpt mental health admission. Date Signed: 09/19/2018 04:07 PM Electronically Signed By:Chrystal Tavarez
[2018-09-19] MEDS: IPRATROPIUM/ALBUTEROL 3 ML DEYVIAL IH PRN (20:49)
[2018-09-19] MEDS: MELATONIN 3 MG TAB PO SCH (21:42)
[2018-09-20] MEDS: oxyCODONE IR 5 MG TAB PO PRN (03:37)
[2018-09-20] MEDS: LORazepam 1 MG TAB PO PRN (03:38)
[2018-09-20 07:41] VITALS: BP 131/96
[2018-09-20] MEDS: CHLORTHALIDONE 25 MG TAB PO SCH (09:00)
[2018-09-20] MEDS: AZITHROMYCIN 250 MG TAB PO SCH (09:00)
[2018-09-20] MEDS: THIAMINE HCL 100 MG TAB PO SCH (09:01)
[2018-09-20] MEDS: predniSONE 20 MG TAB PO SCH (09:01)
[2018-09-20] MEDS: ENOXAPARIN 40 MG/0.4 ML SYR SC SCH (09:02)
[2018-09-20] MEDS: BUDESONIDE/FORMOTEROL 80/4.5 60 PUFFS/MDI IH SCH (09:04)
--- NOTE | 2018-09-20 09:33 | PDIAF ---
- Diagnosis Diagnosis: COPD Exacerbation, Suicial Ideation Code Status: Full Code - Medication Management Assistance Representative Antibiotics: Azithromycin Nursing Home Antibiotic Stop Date: 09/22/18 Additional Medication Instructions: Prednisone 40 mg for 2 more days, end date Saturday 09/22 Discharge Medications: electronically signed and located in the Home Medication List. - Orders Isolation Type: None - Follow Up Care Current Providers and Referrals: NONE *PRIMARY CARE P,. [Primary Care Provider] - As per Instructions
--- NOTE | 2018-09-20 12:48 | PDDCSUM ---
Discharge Summary Discharge Summary: Date of Admission: 09/18/2018 Date of Discharge: 09/20/2018 Consults: Psychiatry Followup: Discharge to Behavioral Health Hospital Course Problem List: ASSESSMENT: * Acute respiratory failure with shortness of breath, diffuse bronchitic wheezing and tachycardia -suspect acute bronchitis and COPD exacerbation -Admitted on September 09 for treatment of similar episode to which he responded bronchodilator steroid and azithromycin * Suicidal ideation in a patient with schizoaffective disorder and previous episodes of suicidal ideation -he was deemed to have serious enough issue to be recommended for behavioral health admission by the mental health assess * Uncontrolled hypertension with longstanding history of hypertension, apparently did not get medicines upon discharge here last week * Alcohol abuse; at present it does not appear that he drinks often enough to develop alcohol withdrawal, however as he is tachycardic and complaining of some symptoms of panic would watch for any withdrawal that might develop PLANS: * Admitted for medical care in the setting of M1 hold for suicidal ideation, transfer to [facility] today * Bronchodilators, Prednisone 40 mg qd, Azithromycin for his respiratory issues , continue for total 5 day course, end date Saturday 09/22 * Will check a chest x-ray respiratory panel and determine if a Zithromax or other antibiotic indicated * Resume chlorthalidone and calcium sera for hypertension, he will be discharged on these Time spent on discharge was >35 minutes with >50% of time spent on patient education and counseling.
--- NOTE | 2018-09-20 13:28 | ASMTDCNOTE ---
Case Management Discharge Discharge Order Complete? Answers: Yes Patient to Obtain Answers: Other Notes: [facility] Behavioral Health Medications Transportation Arranged Answers: [facility] will Pick (Date 09/20/2018 12:00 AM & Time) EMTALA Complete Answers: Yes Notes: [facility] Case Management Transport Answers: Yes Notes: [facility] Form Complete Faxed Final Orders Answers: Yes Notes: [facility] Behavioral Health Agency/Facility Transfer Answers: Yes Notes: [facility] - Behavioral Health Report Printed & Faxed to Receiving Agency Discharge Comments Notes: Patient is discharging to the [facility] Behavioral Health Unit for suicidal and homicidal thoughts. Patient is on an M1 hold. Emtala completed and discharge summaries forwarded via [employer]. Transport has been arranged with [facility] with a sampler pickup time of 14:00. PCS and face sheet complete and ready for [facility], along with the M1 and Emtala form to deliver to [facility] Behavioral Health. Nurse to nurse to take place at 13:30. No further needs. Date Signed: 09/20/2018 01:28 PM Electronically Signed By:Maggie uGzman LCSW
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
== END 2018-09-20 14:11 | DRG 750 ==
LOC: OBSVTOIN 09-18 10:18 → F2N 09-18 15:03
PROVIDERS: ADMIT Internal Medicine; ATTEND Internal Medicine
PROC: 02HV33Z Insertion of Infusion Device into Superior Vena Cava, Percutaneous Approach (ICD-10-PCS; principal; 2018-09-18)
DX: F25.9 Schizoaffective disorder, unspecified (principal); J96.00 Acute respiratory failure, unspecified whether with hypoxia or hypercapnia; J20.9 Acute bronchitis, unspecified; J44.1 Chronic obstructive pulmonary disease with (acute) exacerbation; Z72.0 Tobacco use; I10 Essential (primary) hypertension; F10.129 Alcohol abuse with intoxication, unspecified; K74.60 Unspecified cirrhosis of liver; B19.20 Unspecified viral hepatitis C without hepatic coma
CPT/HCPCS: 80305; 96374; C1751; J1650; J2550; J7512

== ENCOUNTER 2018-09-20 14:30 | Inpatient (IN) | payer MEDICAID, OTHER ==
--- NOTE | 2018-09-20 15:37 | ASMTBHMTP ---
Master Treatment Plan Master Treatment Plan Answers: Depressed Mood without for: Suicidal Ideation Date: 09/20/2018 Diagnosis on Admission: Schizoaffective Disorder, BiPolar Type 295.70 (F25.0) Expected length of stay: 3-5 days Reason for admission: Notes: Client is a 63 yoa male who presented to [facility] ED on an M1 from [employer] endorsing suicidal ideation for the past week. Pt told ED PA that if he is unable to commit suicide then he will kill others if he is not successful. Patient stated, "I don't want to live any more." Patient's stated presenting problems: Notes: Client would not participate Patient's goals for treatment: Notes: Client would not participate Patient's strengths: Notes: Client would not participate Identify supports outside of hospital: Notes: Client would not participate Discharge criteria: Notes: Suicidal Ideation will resolve and patient will have a plan to safely manage recurrent suicidal ideation.* Initial disposition plan/considerations: Notes: Client would not participate Master Treatment Plan Required Signatures Psychiatrist signature: Answers: Psychiatrist: RN on-shift signature: Answers: RN: Patient signature: Answers: Patient: Date Signed: 09/20/2018 03:37 PM Electronically Signed By:Ivan Jj
[2018-09-20] MEDS ORDERED: OLANZapine DISINTEGR 10 MG TAB PO PRN (17:10)
[2018-09-20] MEDS ORDERED: MAG HYDROX/AL HYDROX/SIMETH 30 ML UDCUP PO PRN (17:10)
[2018-09-20] MEDS ORDERED: ACETAMINOPHEN 325 MG TAB PO PRN (17:10)
[2018-09-20] MEDS ORDERED: chlordiazePOXIDE 25 MG CAP PO PRN (17:13)
[2018-09-20] MEDS ORDERED: ALBUTEROL 60 PUFFS/8 GM MDI IH PRN (17:13)
[2018-09-20] MEDS ORDERED: IBUPROFEN 200 MG TAB PO PRN (17:13)
[2018-09-20] MEDS ORDERED: ALTEPLASE 2 MG VIAL IVP ONE ×2 (17:33→17:45)
[2018-09-20] MEDS: NICOTINE POLACRILEX 2 MG GUM B PRN (17:45)
[2018-09-20] MEDS: oxyCODONE IR 5 MG TAB PO PRN (20:33)
[2018-09-20] MEDS: MELATONIN 3 MG TAB PO SCH (20:34)
[2018-09-20] MEDS: LORazepam 0.5 MG TAB PO PRN (20:34)
[2018-09-20] MEDS: BUDESONIDE/FORMOTEROL 80/4.5 60 PUFFS/MDI IH SCH (20:35)
[2018-09-20] MEDS ORDERED: ALTEPLASE 2 MG VIAL ONE (21:35)
[2018-09-21] MEDS: oxyCODONE IR 5 MG TAB PO PRN ×3 (06:52→19:32)
[2018-09-21] MEDS: LORazepam 0.5 MG TAB PO PRN ×2 (06:52→12:49)
[2018-09-21] MEDS: predniSONE 20 MG TAB PO SCH (08:21)
[2018-09-21] MEDS: AZITHROMYCIN 250 MG TAB PO SCH (08:21)
[2018-09-21] MEDS: amLODIPine BESYLATE 5 MG TAB PO SCH (08:23)
[2018-09-21] MEDS: CHLORTHALIDONE 25 MG TAB PO SCH (08:24)
[2018-09-21] MEDS: BUDESONIDE/FORMOTEROL 80/4.5 60 PUFFS/MDI IH SCH ×2 (08:39→19:28)
--- NOTE | 2018-09-21 10:23 | PDMN ---
Medical Necessity Medical necessity: [facility] [id number]: Schizophrenia Spectrum Disorders, Adult: Inpatient Care63 yo w/ schizoaffective d/o, bipolar type, suicidal ideation, M1 hold.
--- NOTE | 2018-09-21 11:14 | ASMTCMCOM ---
CM Note CM Note Notes: CC checked in with ct. Per his report he plans on moving back to [facility] on 10/01 when he gets his disability check. Ct. reported that he has not received any MH treatment in the last 6 months because he doesn't have [place] Medicaid. He said that he submitted Medicaid paper work before leaving [place]. He refused to sign EVELIN for [facility]. He complained that he doesn't have [employer]. Date Signed: 09/21/2018 11:13 AM Electronically Signed By:Amy Vallecillo
--- NOTE | 2018-09-21 17:30 | BAPA ---
DATE OF SERVICE: 09/21/2018 REASON FOR ADMISSION: The patient is a 63-year-old male with a long history of multiple me dical problems, primarily respiratory and cardiac. He also has a reported history of schizoaffective disorder. He has dozens of ER contacts every year and was last hospitalized with us on the [facility] inpatient unit in April 2014. He was transferred to our service today from the [facility] service after he was treated for alcohol withdrawal and possible pneumonia. He was stabilized o n the medical floor and when they were discussing discharge with him he stated he would kill himself if he was sent to the snf or the streets. He insisted on a behavioral health hospitalization. Som ag was transferred to the [address] [place] [address] unit where I interviewed him individually and then in treatment plan angie meeting. He stated that he wanted to stay on the inpatient unit until November 01 when he rece clari his disability income payment and he will buy a bus ticket and return to [place], [place], where he states he has an apartment. He has lived in [place] for most of his life and this seemed lo gical, but he insists that he has been living in [place], only returning to [place] about a mo nth ago because he had pneumonia, and "they will not treat you in [place] if you do not have insurance. " He states he feels "very depressed" and is having auditory hallucinations telling him to kill hims elf. PAST PSYCHIATRIC HISTORY: Significant for numerous previous psychiatric hospitalizations. Last was with us in 2013. He was previously followed by [facility], though states he has not seen them in 6 or 8 months. He denies regularly taking medication recently. ALLERGIES: Ketorolac, levofloxacin, and lisinopril. CURRENT MEDICATIONS: Albuterol inhaler every 4 hours as needed, amlodipine 10 mg daily, Zithromax 25 0 mg daily, Symbicort inhaler 2 puffs twice daily, chlorthalidone 25 mg daily, oxycodone 5 mg every 4 hours as needed for pain, prednisone 40 mg daily on a taper. PAST MEDICAL HISTORY: The patient is treated for COPD, hypertension, recent major alcohol withdrawal , and pneumonia. SOCIAL HISTORY: The patient is single. States he lives in [place] now, but is homeless in [place]. Som ag has a long history of substance dependence, primarily alcohol, and is someone who is known to frequ ent the emergency department. He has no connection to community supports at this time per his report and is not connected to mental health center. He denies any legal problems. ADMITTING LABS: No additional labs were drawn. A full copy of the labs were drawn during his stay o n the medical unit and these are reviewed. CBC was noted to have a white count topping out at 14,000 . Liver function is normal. Serum chemistries are normal. Urinalysis shows no infection and urine drug screen was positive for benzodiazepines and marijuana. MENTAL STATUS EXAMINATION: Reveals healthy-appearing, adequately groomed, adequately nourished, Cauc male. He is calm, pleasant, and cooperative with myself and with the treatment team. He displ ays a euthymic, stable, and appropriate affect. His mood is described as "depressed." His thought p rocess is linear and goal-directed. His thought content reveals command auditory hallucinations to k ill himself, though he does not appear to attend to internal stimuli in any way. No delusional think ing is noted. He is alert and oriented to person, place, time, and situation, and his sensorium is c lear. There is no evidence of delirium or acute withdrawal syndrome. His intellect appears to be at least average. He continues to endorse thoughts of suicide that are dependent solely on not being d ischarged to the street. His insight and judgment appear to be good. IMPRESSION: Schizoaffective disorder by history. Homelessness. Lack of supports. Recent pneumonia . Multiple chronic medical issues. The patient is a 63-year-old male, well-known to the various services of [facility]. He presented several days ago with alcohol withdrawal and pneumonia and was admitted to the inpatient medical service. He is stabilized, is now transferred to us after he threatened suicide wh en they were going to discharge him to the snf. This is almost certainly malingering and I samara usly question the validity of his history of schizoaffective disorder. However, he requests restarti ng Invega, which he states has been helpful to him in the past, and we will do this at 3 mg. Estimated length of stay is 3-5 days. /[id number]/MODL
--- NOTE | 2018-09-21 18:56 | BCON ---
INTERNAL MEDICINE CONSULTATION. DATE OF CONSULTATION: 09/21/2018 REFERRING PHYSICIAN: Zurdo Anderson MD REASON FOR REFERRAL: Medical clearance for inpatient behavioral health stay. HISTORY OF PRESENT ILLNESS: This patient came to inpatient rehabilitation from [facility]. He had been hospitalized there twice recently on September 07 and on September 18. Both times he was treated for COPD exacerbation with azithromycin as well as prednisone. The 2nd time he was also in alcohol withdrawal and he expressed suicidal ideation and so he was transferred to inpatient Behavioral Health upon discharge from [facility]. A PICC line was placed in the hospital due to difficulty obtaining lab draws. He reports his breathing feels better. He complains of chronic pain in his neck and his low back, the neck pain radiates down the left shoulder and the back pain radiates down the left leg. However, he reports he is not asking for increased pain medication. PAST MEDICAL HISTORY: 1. COPD. 2. Alcohol use disorder. 3. Chronic pain with cervical and lumbar disk disease. 4. Hepatitis C status post treatment with [facility]. 5. Hypertension. PAST SURGICAL HISTORY: He reports surgeries x3 on his lumbar spine and tonsillectomy. MEDICATIONS: Medications on discharge from the hospital: 1. Prednisone 40 mg p.o. daily for 2 more days. 2. Oxycodone 5 mg p.o. q.4 hours p.r.n. 3. Chlordiazepoxide 25 mg p.o. three times daily p.r.n. 4. Amlodipine 10 mg p.o. daily. 5. Melatonin 3 mg p.o. at bedtime. 6. Ibuprofen 200 mg p.o. daily p.r.n. 7. Chlorthalidone 25 mg p.o. daily. 8. Budesonide/formoterol 2 puffs twice daily. 9. Azithromycin 250 mg p.o. daily for 2 more days. 10. Albuterol 1-2 puffs q.4 hours p.r.n. ALLERGIES: Listed to ketorolac, levofloxacin and lisinopril. SOCIAL HISTORY: He is currently homeless. He recently moved to [place] from [facility]. He reports he had issues with his [place] roommate who had behavioral issues. He is a heavy smoker. He reports he only drinks approximately once a month, but drinks heavily and as in HPI, he was in alcohol withdrawal at his most recent acute hospitalization. FAMILY HISTORY: Noncontributory. REVIEW OF SYSTEMS: He has multiple positive findings including back pain, difficulty breathing, cough, and multiple psychiatric complaints. Otherwise, a 10-point review of systems is negative. PHYSICAL EXAM: VITAL SIGNS: Blood pressure is 141/85, heart rate is 91, respiratory rate is 14, oxygen saturation is 95% on room air, temperature is 36.8 degrees centigrade. His weight is 86.2 kg for a body mass index of 28.1. GENERAL: This is an overweight man, dressed in street clothes, sitting in a chair, cooperative and in no acute distress. HEENT: Extraocular movements are intact. Pupils are equal, round, reactive to light. Mucous membranes are moist. Dentition is in poor condition with missing teeth, especially in particular his upper incisors. He has an uncrowded airway, Mallampati class 2. NECK: Supple. HEART: There is a regular rate and rhythm with no murmurs, rubs, or gallops. There is no JVD and no edema. LUNGS: Clear to auscultation bilaterally. ABDOMEN: Soft, nontender, nondistended with normoactive bowel sounds. EXTREMITIES: There is no cyanosis, clubbing, or edema. NEUROLOGIC: He is alert and oriented x3. Cranial nerves 2-12 are grossly intact. There is no focal weakness. Sensation is intact to light touch and gait is within normal limits. LABORATORY STUDIES: From his recent hospitalization: CBC showed an elevated white blood cell count at 14, consistent with corticosteroid treatment. There was no anemia. Platelet count was normal. Serum chemistry revealed a slightly low potassium at 3.4. Otherwise renal function and electrolytes were normal. Total bilirubin was slightly elevated at 1.5. There was predominantly unconjugated liver function tests otherwise were normal. Troponin was negative. Urinalysis showed 1+ ketones and otherwise was normal. Toxicology screen in the urine was non-negative for benzodiazepines and marijuana. ASSESSMENT/RECOMMENDATIONS: 1. Mental health issues pending further evaluation and management per Psychiatry and the mental health team. 2. Chronic obstructive pulmonary disease, status post exacerbation. Continue budesonide/formoterol and albuterol. He appears to be breathing normally and his most recent x-ray showed large lung volumes, but otherwise was unremarkable. I doubt that his chronic obstructive pulmonary disease is severe. 3. Tobacco dependence. He was encouraged to quit smoking. 4. Alcohol use disorder. He might benefit from specific substance abuse counseling. 5. Chronic pain. He is satisfied with his current treatment with oxycodone. He reports that gabapentin has not been useful in the past. 6. Presence of a PICC line. There is no indication for it to be continued. I do not anticipate that he will need further blood draws in the short term and he is not receiving any medications or hydration by the PICC line. I will order discontinuation. I see no medical contraindications to this patient's continued stay on the inpatient behavioral health unit or to any psychiatric medications or procedures. Thank you very much for including me in the care of this patient and please do not hesitate to contact me or the hospitalist service should there be need for further medical evaluation. /[id number]/MODL MTDD
[2018-09-21] MEDS: MELATONIN 3 MG TAB PO SCH (19:28)
[2018-09-21] MEDS: PALIPERIDONE 3 MG TAB.ER PO SCH (19:28)
[2018-09-22] MEDS: oxyCODONE IR 5 MG TAB PO PRN ×3 (04:56→21:33)
[2018-09-22] MEDS: LORazepam 0.5 MG TAB PO PRN ×3 (04:56→21:33)
[2018-09-22] MEDS: CHLORTHALIDONE 25 MG TAB PO SCH (08:16)
[2018-09-22] MEDS: amLODIPine BESYLATE 5 MG TAB PO SCH (08:17)
[2018-09-22] MEDS: AZITHROMYCIN 250 MG TAB PO SCH (08:17)
[2018-09-22] MEDS: predniSONE 20 MG TAB PO SCH (08:17)
[2018-09-22] MEDS: BUDESONIDE/FORMOTEROL 80/4.5 60 PUFFS/MDI IH SCH ×2 (08:18→21:25)
[2018-09-22] MEDS: NICOTINE POLACRILEX 2 MG GUM B PRN ×3 (12:22→18:42)
--- NOTE | 2018-09-22 17:33 | SOAPPROG ---
SOAP Progress Note Assessment/Plan: Assessment: 63 yo with reported h/o schizoaffective disorder. Patient was admitted b/c he threatened to kill himself if medicine d/c'd him from hospital with nowhere to go until he got his next disability check. Plan: 09/22/18 17:30 1. Patient claims he wants to return to [place], but doesn't have any money until he gets his next SSI check on 10/01/18. 2. Patient exhibits no psychotic, manic or depressed sxs. He denies feeling sad , depressed, hopeless, helpless, worthless or anxious. However, he states he will become suicidal if discharged from hospital without any place to go. He does not want to go to homeless jail. 3. Patient states he has been on psych meds in past, but states they only help "somewhat...but not really." 4. Denies any SE's from meds currently prescribed. 5. VOL Subjective: Patient sitting in front of TV, smiling, laughing and interacting appropriately with peers. Patient claims he wants to return to [place], but doesn't have any money until he gets his next SSI check on 10/01/18. Patient exhibits no psychotic, manic or depressed sxs. He denies feeling sad, depressed, hopeless , helpless, worthless or anxious. However, he states he will become suicidal if discharged from hospital without any place to go. He does not want to go to homeless jail. Patient states he has been on psych meds in past, but states they only help "somewhat...but not really." Objective: Vital Signs Temp Pulse Resp BP Pulse Ox 36.6 C 84 20 128/86 H 93 09/22/18 06:00 09/22/18 06:00 09/22/18 06:00 09/22/18 06:00 09/22/18 06:00 MSE: Affect: Euthymic Mood: "OK" TP: Linear TC: Denies any SI/HI unless he gets discharged Insight/Judgment: Poor - Time Spent With Patient Time Spent With Patient: 15" - Pending Discharge Pending Discharge Within 24 Hours: No Pending Discharge Within 48 Hours: No ICD10 Worksheet Patient Problems: Problems Problem Status Onset RANDAL (acute kidney injury) Acute Acute bronchitis Acute Alcohol intoxication Acute Alcohol withdrawal Acute Alcoholic intoxication without complication Acute Alcoholism Acute Anxiety Acute Bilateral ankle pain Acute Bilateral knee pain Acute Blood bacterial culture positive Acute Bronchitis Acute Chest pain Acute Chronic alcoholism Acute Chronic obstructive pulmonary disease with acute exacerbation Acute Diarrhea Acute Elevated bilirubin Acute Gravely disabled Acute Hand edema Acute Homicidal thoughts Acute Hypertension Acute Hypokalemia Acute Hyponatremia Acute Lactic acidosis Acute Leg edema Acute Leukocytosis Acute Leukocytosis Acute Nausea vomiting and diarrhea Acute Pneumonia Acute Pneumonia Acute Schizoaffective disorder, bipolar type Acute Verbalizes suicidal thoughts Acute
[2018-09-22] MEDS: MAGNESIUM HYDROXIDE 30 ML UDCUP PO PRN (19:28)
[2018-09-22] MEDS: PALIPERIDONE 3 MG TAB.ER PO SCH (21:24)
[2018-09-22] MEDS: MELATONIN 3 MG TAB PO SCH (21:24)
[2018-09-23] MEDS: LORazepam 0.5 MG TAB PO PRN ×3 (06:00→21:37)
[2018-09-23] MEDS: oxyCODONE IR 5 MG TAB PO PRN ×3 (06:00→21:38)
[2018-09-23] MEDS: CHLORTHALIDONE 25 MG TAB PO SCH (08:42)
[2018-09-23] MEDS: amLODIPine BESYLATE 5 MG TAB PO SCH (08:42)
[2018-09-23] MEDS: BUDESONIDE/FORMOTEROL 80/4.5 60 PUFFS/MDI IH SCH ×2 (08:42→21:37)
[2018-09-23] MEDS: NICOTINE POLACRILEX 2 MG GUM B PRN ×2 (10:38→19:15)
--- NOTE | 2018-09-23 14:39 | ASMTCMCOM ---
CM Note CM Note Notes: The patient rated himself an 8/10 on the suicide scale. He reported that he would like to shave. The patient understands that he will not be able to shave while he is expressing frequent suicidal ideation. The patient expressed confusion about medication; he requested a NOLASCO in clinical treatment team rounds and reported that he was supposed to be on an oral over the weekend although he couldn't confirm whether he was offered medication. According to the MAR, the patient has been compliant with oral medication for the past two days; HS. Date Signed: 09/23/2018 02:36 PM Electronically Signed By:Chana Cazares
--- NOTE | 2018-09-23 17:52 | SOAPPROG ---
SOAP Progress Note Assessment/Plan: Assessment: 63 yo with reported h/o schizoaffective disorder. Patient was admitted b/c he threatened to kill himself if medicine d/c'd him from hospital with nowhere to go until he got his next disability check. Plan: 09/22/18 17:30 1. Patient claims he wants to return to [place], but doesn't have any money until he gets his next SSI check on 10/01/18. 2. Patient exhibits no psychotic, manic or depressed sxs. He denies feeling sad , depressed, hopeless, helpless, worthless or anxious. However, he states he will become suicidal if discharged from hospital without any place to go. He does not want to go to homeless intermediate. 3. Patient states he has been on psych meds in past, but states they only help "somewhat...but not really." 4. Denies any SE's from meds currently prescribed. 5. VOL 09/23/18 17:49 1. Patient claims he is suicidal if discharged before he can buy his ticket to [place]. 2. Patient sleeping and eating well in hospital. No change to sleep or appetite. 3. Patient is laughing, smiling, interacting appropriately with peers. He attended goals group this AM. 4. Patient doesn't feel psych meds are particularly effective (they "don't really work"), but says he's willing to take them. 5. VOL Subjective: Patient sitting in chair watching TV. He is smiling and making jokes with peers when MD approaches. He denies any physical complaints. He says he is not depressed, sad, anxious, hopeless, helpless or worthless, but says he will quickly become all those things if he gets discharged from hospital before which is when he will get his next SSI check. Objective: Vital Signs Temp Pulse Resp BP Pulse Ox 36.6 C 92 16 131/90 H 94 09/22/18 06:00 09/23/18 06:00 09/23/18 06:00 09/23/18 06:00 09/23/18 06:00 MSE: Affect: Euthymic Mood: "OK" TP: Linear TC: Denies any SI unless discharged Insight/Judgment: Poor - Time Spent With Patient Time Spent With Patient: 15" - Pending Discharge Pending Discharge Within 24 Hours: No Pending Discharge Within 48 Hours: No ICD10 Worksheet Patient Problems: Problems Problem Status Onset Malingering Acute RANDAL (acute kidney injury) Acute Acute bronchitis Acute Alcohol intoxication Acute Alcohol withdrawal Acute Alcoholic intoxication without complication Acute Alcoholism Acute Anxiety Acute Bilateral ankle pain Acute Bilateral knee pain Acute Blood bacterial culture positive Acute Bronchitis Acute Chest pain Acute Chronic alcoholism Acute Chronic obstructive pulmonary disease with acute exacerbation Acute Diarrhea Acute Elevated bilirubin Acute Gravely disabled Acute Hand edema Acute Homicidal thoughts Acute Hypertension Acute Hypokalemia Acute Hyponatremia Acute Lactic acidosis Acute Leg edema Acute Leukocytosis Acute Leukocytosis Acute Nausea vomiting and diarrhea Acute Pneumonia Acute Pneumonia Acute Schizoaffective disorder, bipolar type Acute Verbalizes suicidal thoughts Acute - ICD10 Problem Qualifiers (1) Malingering
[2018-09-23] MEDS: MELATONIN 3 MG TAB PO SCH (21:37)
[2018-09-23] MEDS: PALIPERIDONE 3 MG TAB.ER PO SCH (21:38)
[2018-09-24] MEDS: LORazepam 0.5 MG TAB PO PRN ×2 (07:03→16:25)
[2018-09-24] MEDS: oxyCODONE IR 5 MG TAB PO PRN ×2 (07:03→16:25)
[2018-09-24] MEDS: amLODIPine BESYLATE 5 MG TAB PO SCH (08:20)
[2018-09-24] MEDS: BUDESONIDE/FORMOTEROL 80/4.5 60 PUFFS/MDI IH SCH ×2 (08:21→21:00)
[2018-09-24] MEDS: CHLORTHALIDONE 25 MG TAB PO SCH (08:21)
--- NOTE | 2018-09-24 14:42 | SOAPPROG ---
SOAP Progress Note Assessment/Plan: Assessment: Plan: Subjective: Pt seen, discussed with staff, chart reviewed. He had an uneventful WE. Continues to appear upbeat and jovial in the milieu and then report feeling depressed and imminently suicidal when interviewed. Demanding of staff attention and hostile when he is not attended to immediately. Requests oxycodone promptly when available. I ask him where his pain is right now and he states, "I have four bulging disks." I acknowledge this and ask again where specifically his pain is and he states, "In the bulging disks." He continues to state that he "will definitely kill myself if I have to discharge before the ." I tell him again that he will discharge when he is ready. Discusses at length his "many severe illnesses." States he cannot have back surgery until he quits smoking. I counseled him that smoking cessation would help his COPD also and he states he is aware of this but "not ready to quit." Objective: Vital Signs Temp Pulse Resp BP Pulse Ox 36.7 C 97 20 114/81 H 95 09/24/18 06:00 09/24/18 06:00 09/24/18 06:00 09/24/18 06:00 09/24/18 06:00 MSE: Calm, coop. Affect is slightly restricted, stable, approp. Mood is "really depressed." TP is linear, goal-directed. TC reveals report of "auditory hallucinations." Cannot describe these. Cognition is normal. - Time Spent With Patient Time Spent With Patient: 25" ICD10 Worksheet Patient Problems: Problems Problem Status Onset Malingering Acute RANDAL (acute kidney injury) Acute Acute bronchitis Acute Alcohol intoxication Acute Alcohol withdrawal Acute Alcoholic intoxication without complication Acute Alcoholism Acute Anxiety Acute Bilateral ankle pain Acute Bilateral knee pain Acute Blood bacterial culture positive Acute Bronchitis Acute Chest pain Acute Chronic alcoholism Acute Chronic obstructive pulmonary disease with acute exacerbation Acute Diarrhea Acute Elevated bilirubin Acute Gravely disabled Acute Hand edema Acute Homicidal thoughts Acute Hypertension Acute Hypokalemia Acute Hyponatremia Acute Lactic acidosis Acute Leg edema Acute Leukocytosis Acute Leukocytosis Acute Nausea vomiting and diarrhea Acute Pneumonia Acute Pneumonia Acute Schizoaffective disorder, bipolar type Acute Verbalizes suicidal thoughts Acute
[2018-09-24] MEDS: NICOTINE POLACRILEX 2 MG GUM B PRN ×2 (14:47→19:00)
[2018-09-24] MEDS: PALIPERIDONE 3 MG TAB.ER PO SCH (20:58)
[2018-09-24] MEDS: MELATONIN 3 MG TAB PO SCH (20:58)
[2018-09-25] MEDS: oxyCODONE IR 5 MG TAB PO PRN ×4 (02:13→21:24)
[2018-09-25] MEDS: LORazepam 0.5 MG TAB PO PRN ×4 (02:13→21:24)
[2018-09-25] MEDS: amLODIPine BESYLATE 5 MG TAB PO SCH (08:37)
[2018-09-25] MEDS: CHLORTHALIDONE 25 MG TAB PO SCH (08:37)
[2018-09-25] MEDS: BUDESONIDE/FORMOTEROL 80/4.5 60 PUFFS/MDI IH SCH ×2 (08:37→21:25)
--- NOTE | 2018-09-25 10:48 | ASMTCMCOM ---
CM Note CM Note Notes: Liborio was in bed when this CC checked in with him. He reported that he feels sick from the anxiety. He did not want to engage in conversation. Date Signed: 09/25/2018 10:48 AM Electronically Signed By:Amy Vallecillo
--- NOTE | 2018-09-25 20:41 | SOAPPROG ---
SOAP Progress Note Assessment/Plan: Assessment: Plan: 09/26/18 11:26 Mood/psychosis: Unchanged. SI persists. [facility]. Fareed Jerez scheduled for 09/26/18. Subjective: Pt seen, discussed with staff. Lying in bed c/o abdominal pain and nausea after breakfast. Relates this to "severe panic attacks all night last night." He states this is due to worry over his living circumstance in [place]. States his roommate is alcoholic and unpredictable at times. Continues to report AH's and active SI. Objective: Vital Signs Temp Pulse Resp BP Pulse Ox 36.4 C 103 H 18 118/69 93 09/25/18 06:00 09/25/18 06:00 09/25/18 06:00 09/25/18 08:37 09/25/18 06:00 MSE: Marginally groomed, cooperative. Affect is dysphoric, blunted, tearful at times. Mood is "bad." TP is linear. TC reveals report of AH's. SI persists. - Time Spent With Patient Time Spent With Patient: 25" ICD10 Worksheet Patient Problems: Problems Problem Status Onset Malingering Acute RANDAL (acute kidney injury) Acute Acute bronchitis Acute Alcohol intoxication Acute Alcohol withdrawal Acute Alcoholic intoxication without complication Acute Alcoholism Acute Anxiety Acute Bilateral ankle pain Acute Bilateral knee pain Acute Blood bacterial culture positive Acute Bronchitis Acute Chest pain Acute Chronic alcoholism Acute Chronic obstructive pulmonary disease with acute exacerbation Acute Diarrhea Acute Elevated bilirubin Acute Gravely disabled Acute Hand edema Acute Homicidal thoughts Acute Hypertension Acute Hypokalemia Acute Hyponatremia Acute Lactic acidosis Acute Leg edema Acute Leukocytosis Acute Leukocytosis Acute Nausea vomiting and diarrhea Acute Pneumonia Acute Pneumonia Acute Schizoaffective disorder, bipolar type Acute Verbalizes suicidal thoughts Acute
[2018-09-25] MEDS: PALIPERIDONE 3 MG TAB.ER PO SCH (21:24)
[2018-09-25] MEDS: MELATONIN 3 MG TAB PO SCH (21:24)
[2018-09-26] MEDS: LORazepam 0.5 MG TAB PO PRN ×2 (07:29→15:13)
[2018-09-26] MEDS: oxyCODONE IR 5 MG TAB PO PRN ×2 (07:29→15:14)
[2018-09-26] MEDS: CHLORTHALIDONE 25 MG TAB PO SCH (08:47)
[2018-09-26] MEDS: amLODIPine BESYLATE 5 MG TAB PO SCH (08:47)
[2018-09-26] MEDS: BUDESONIDE/FORMOTEROL 80/4.5 60 PUFFS/MDI IH SCH ×2 (08:47→20:10)
--- NOTE | 2018-09-26 11:32 | SOAPPROG ---
SOAP Progress Note Assessment/Plan: Assessment: Plan: 09/26/18 11:26 Mood/psychosis: Unchanged. SI persists. [facility]. Invega Sustenna scheduled for 09/26/18. 09/26/18 11:33 Mood/psychosis: Improved overall. Able to formulate a concrete d/c plan for Monday or Monday. CCM. Subjective: Pt seen, discussed with staff, interviewed in Treatment Team meeting. Continues to report feeling "terrible" and experiencing acute SI. Team focused pt on dc plan including where he will go when he leaves. He says several times that he continues to plan to go to [place], [place]. When we offer to get him a ticket sooner than the , he states first that he is afraid he "won't be stable by then" and then states he talked to his roommate last night and she was "intoxicated and belligerent" and he "doesn't feel safe going down there." He then states he plans to go to [place] "for a month" after d/c and stay in a weekly motel. Objective: Vital Signs Temp Pulse Resp BP Pulse Ox 36.4 C 100 18 116/64 93 09/26/18 06:00 09/26/18 06:00 09/26/18 06:00 09/26/18 08:47 09/26/18 06:00 MSE: Adequately groomed, coop, approp. Activity and speech are normal. Affect is blunted, stable, approp. Mood is "bad." TP linear, goal-dir. TC reveals continued report of AH's. SI persists, "the same." - Time Spent With Patient Time Spent With Patient: 25" ICD10 Worksheet Patient Problems: Problems Problem Status Onset Malingering Acute RANDAL (acute kidney injury) Acute Acute bronchitis Acute Alcohol intoxication Acute Alcohol withdrawal Acute Alcoholic intoxication without complication Acute Alcoholism Acute Anxiety Acute Bilateral ankle pain Acute Bilateral knee pain Acute Blood bacterial culture positive Acute Bronchitis Acute Chest pain Acute Chronic alcoholism Acute Chronic obstructive pulmonary disease with acute exacerbation Acute Diarrhea Acute Elevated bilirubin Acute Gravely disabled Acute Hand edema Acute Homicidal thoughts Acute Hypertension Acute Hypokalemia Acute Hyponatremia Acute Lactic acidosis Acute Leg edema Acute Leukocytosis Acute Leukocytosis Acute Nausea vomiting and diarrhea Acute Pneumonia Acute Pneumonia Acute Schizoaffective disorder, bipolar type Acute Verbalizes suicidal thoughts Acute
[2018-09-26] MEDS: PALIPERIDONE 3 MG TAB.ER PO SCH (20:09)
[2018-09-26] MEDS: MELATONIN 3 MG TAB PO SCH (20:09)
[2018-09-27] MEDS: BUDESONIDE/FORMOTEROL 80/4.5 60 PUFFS/MDI IH SCH ×2 (07:24→20:47)
[2018-09-27] MEDS: LORazepam 0.5 MG TAB PO PRN ×2 (07:25→15:14)
[2018-09-27] MEDS: amLODIPine BESYLATE 5 MG TAB PO SCH (07:25)
[2018-09-27] MEDS: CHLORTHALIDONE 25 MG TAB PO SCH (07:25)
[2018-09-27] MEDS: oxyCODONE IR 5 MG TAB PO PRN ×2 (07:25→15:14)
[2018-09-27] MEDS ORDERED: PALIPERIDONE PALMITATE 156 MG/ML SYR IM ONE (11:00)
--- NOTE | 2018-09-27 17:26 | SOAPPROG ---
SOAP Progress Note Assessment/Plan: Assessment: Plan: 09/26/18 11:26 Mood/psychosis: Unchanged. SI persists. [facility]. Invega Sustenna scheduled for 09/26/18. 09/26/18 11:33 Mood/psychosis: Improved overall. Able to formulate a concrete d/c plan for Monday or Monday. [facility]. 09/27/18 17:27 Mood/psychosis: Continued improvement. [facility]. Subjective: Pt seen, discussed with staff. Reports feeling "a little better today." Talks about feeling lonely and the loss of his family and friends. Looking forward to Sustenna injection today. Thankful for d/c planning efforts. No physical c/ o's today. Objective: Vital Signs Temp Pulse Resp BP Pulse Ox 36.6 C 111 H 20 113/64 91 L 09/27/18 06:00 09/27/18 06:00 09/27/18 06:00 09/27/18 06:00 09/27/18 06:00 MSE: Calm, coop. Affect is brighter, though tearful at times. Mood is "a little better." TP linear, goal-directed. TC reveals continued report of AH's , inc: CAH's to kill himself. SI persists. - Time Spent With Patient Time Spent With Patient: 25" ICD10 Worksheet Patient Problems: Problems Problem Status Onset Malingering Acute RANDAL (acute kidney injury) Acute Acute bronchitis Acute Alcohol intoxication Acute Alcohol withdrawal Acute Alcoholic intoxication without complication Acute Alcoholism Acute Anxiety Acute Bilateral ankle pain Acute Bilateral knee pain Acute Blood bacterial culture positive Acute Bronchitis Acute Chest pain Acute Chronic alcoholism Acute Chronic obstructive pulmonary disease with acute exacerbation Acute Diarrhea Acute Elevated bilirubin Acute Gravely disabled Acute Hand edema Acute Homicidal thoughts Acute Hypertension Acute Hypokalemia Acute Hyponatremia Acute Lactic acidosis Acute Leg edema Acute Leukocytosis Acute Leukocytosis Acute Nausea vomiting and diarrhea Acute Pneumonia Acute Pneumonia Acute Schizoaffective disorder, bipolar type Acute Verbalizes suicidal thoughts Acute
[2018-09-27] MEDS: PALIPERIDONE 3 MG TAB.ER PO SCH (20:47)
[2018-09-27] MEDS: MELATONIN 3 MG TAB PO SCH (20:47)
[2018-09-28] MEDS: LORazepam 0.5 MG TAB PO PRN ×3 (05:56→22:33)
[2018-09-28] MEDS: oxyCODONE IR 5 MG TAB PO PRN ×3 (05:56→21:40)
[2018-09-28] MEDS: BUDESONIDE/FORMOTEROL 80/4.5 60 PUFFS/MDI IH SCH ×2 (09:24→20:36)
--- NOTE | 2018-09-28 11:18 | ASMTBHDC ---
Notes Note: Notes: CC confirmed client's discharge appts for follow up care. Per provider client is scheduled to discharge on Monday. 10/01/18.* Follow Up Appointments: [facility] [address] [place], [place] [address] [address] Next Therapy Appt: with Renea Santos, MondayOct.05 (10/05/18) at 10:45am at the (above address). Next Medication Appt: with Dr. Barakat on Oct.09 (10/09/18) at 1:30pm (above address). Date Signed: 09/28/2018 11:17 AM Electronically Signed By:Ivan Jj
[2018-09-28] MEDS: amLODIPine BESYLATE 5 MG TAB PO SCH (12:37)
[2018-09-28] MEDS: CHLORTHALIDONE 25 MG TAB PO SCH (12:38)
--- NOTE | 2018-09-28 16:30 | SOAPPROG ---
SOAP Progress Note Assessment/Plan: Assessment: Plan: 09/26/18 11:26 Mood/psychosis: Unchanged. SI persists. [facility]. Invega Sustenna scheduled for 09/26/18. 09/26/18 11:33 Mood/psychosis: Improved overall. Able to formulate a concrete d/c plan for Monday or Monday. [facility]. 09/27/18 17:27 Mood/psychosis: Continued improvement. [facility]. 09/28/18 16:29 Mood/psychosis: No change. I do not ascribe his GI sx's to the Invega shot. [facility]. D/c Monday. Subjective: Pt seen, discussed with staff. Reports being "really sad", again describes his numerous losses over the past several years - actually extending back to the . C/o stomach ache, nausea, dizziness. Objective: Vital Signs Temp Pulse Resp BP Pulse Ox 37.0 C 65 16 94/53 L 97 09/28/18 09:23 09/28/18 09:23 09/28/18 09:23 09/28/18 09:23 09/28/18 09:23 MSE: Calm, coop., appropriately interactive. Affect is generally euthymic, stable, approp. Mood is "really sad." TP is linear, goal-directed. TC reveals no reports of AH's. SI persists "if I leave too soon - before I'm stable." - Time Spent With Patient Time Spent With Patient: 25" ICD10 Worksheet Patient Problems: Problems Problem Status Onset Malingering Acute RANDAL (acute kidney injury) Acute Acute bronchitis Acute Alcohol intoxication Acute Alcohol withdrawal Acute Alcoholic intoxication without complication Acute Alcoholism Acute Anxiety Acute Bilateral ankle pain Acute Bilateral knee pain Acute Blood bacterial culture positive Acute Bronchitis Acute Chest pain Acute Chronic alcoholism Acute Chronic obstructive pulmonary disease with acute exacerbation Acute Diarrhea Acute Elevated bilirubin Acute Gravely disabled Acute Hand edema Acute Homicidal thoughts Acute Hypertension Acute Hypokalemia Acute Hyponatremia Acute Lactic acidosis Acute Leg edema Acute Leukocytosis Acute Leukocytosis Acute Nausea vomiting and diarrhea Acute Pneumonia Acute Pneumonia Acute Schizoaffective disorder, bipolar type Acute Verbalizes suicidal thoughts Acute
[2018-09-28] MEDS: PALIPERIDONE 3 MG TAB.ER PO SCH (20:36)
[2018-09-28] MEDS: MELATONIN 3 MG TAB PO SCH (20:36)
[2018-09-29] MEDS: LORazepam 0.5 MG TAB PO PRN (06:38)
[2018-09-29] MEDS: oxyCODONE IR 5 MG TAB PO PRN ×2 (06:38→14:38)
[2018-09-29] MEDS: amLODIPine BESYLATE 5 MG TAB PO SCH (09:00)
[2018-09-29] MEDS: BUDESONIDE/FORMOTEROL 80/4.5 60 PUFFS/MDI IH SCH ×2 (09:00→20:55)
[2018-09-29] MEDS: CHLORTHALIDONE 25 MG TAB PO SCH (09:00)
[2018-09-29] MEDS: NICOTINE POLACRILEX 2 MG GUM B PRN ×3 (11:42→17:34)
[2018-09-29] MEDS: LORazepam 1 MG TAB PO PRN ×2 (14:38→20:56)
[2018-09-29] MEDS: MAGNESIUM HYDROXIDE 30 ML UDCUP PO PRN (15:52)
--- NOTE | 2018-09-29 16:25 | SOAPPROG ---
SOAP Progress Note Assessment/Plan: Assessment: 63 yo with reported h/o schizoaffective disorder. Patient was admitted b/c he threatened to kill himself if medicine d/c'd him from hospital with nowhere to go until he got his next disability check. Per Dr. Anderson's recent notes: 09/26/18 11:26 Mood/psychosis: Unchanged. SI persists. [facility]. Invega Sustenna scheduled for 09/26/18. 09/26/18 11:33 Mood/psychosis: Improved overall. Able to formulate a concrete d/c plan for Monday or Monday. [facility]. 09/27/18 17:27 Mood/psychosis: Continued improvement. [facility]. 09/28/18 16:29 Mood/psychosis: No change. I do not ascribe his GI sx's to the Invega shot. [facility]. D/c Monday. Subjective: Pt seen, discussed with staff. Reports being "really sad", again describes his numerous losses over the past several years - actually extending back to the . C/o stomach ache, nausea, dizziness. PLAN: 09/29/18 16:21 1. Patient requests to shave. He reports he isn't having any SI today and has no intent or plan to hurt himself or anyone else. Will d/c SP1 since patient does not pose risk to himself or others. 2. Patient looking forward to d/c on Monday. 3. No change to treatment plan. 4. Vol Subjective: Patient denies feeling sad or depressed today. He reports feeling "extremely well" to d/c on Monday. He is looking forward to leaving [place]. He claims he is going to [place], [place] after Monday. His only goals today are to "sleep" and watch TV. He denies any SI/HI. Objective: Vital Signs Temp Pulse Resp BP Pulse Ox 36.4 C 86 14 105/73 92 09/29/18 06:00 09/29/18 06:00 09/29/18 06:00 09/29/18 09:00 09/29/18 06:00 MSE: Affect: Euthymic Mood: "Good" TP: Linear, goal-directed TC: Denies any SI/HI Insight/Judgment: Poor - Time Spent With Patient Time Spent With Patient: 15" - Pending Discharge Pending Discharge Within 24 Hours: No Pending Discharge Within 48 Hours: No ICD10 Worksheet Patient Problems: Problems Problem Status Onset Malingering Acute RANDAL (acute kidney injury) Acute Acute bronchitis Acute Alcohol intoxication Acute Alcohol withdrawal Acute Alcoholic intoxication without complication Acute Alcoholism Acute Anxiety Acute Bilateral ankle pain Acute Bilateral knee pain Acute Blood bacterial culture positive Acute Bronchitis Acute Chest pain Acute Chronic alcoholism Acute Chronic obstructive pulmonary disease with acute exacerbation Acute Diarrhea Acute Elevated bilirubin Acute Gravely disabled Acute Hand edema Acute Homicidal thoughts Acute Hypertension Acute Hypokalemia Acute Hyponatremia Acute Lactic acidosis Acute Leg edema Acute Leukocytosis Acute Leukocytosis Acute Nausea vomiting and diarrhea Acute Pneumonia Acute Pneumonia Acute Schizoaffective disorder, bipolar type Acute Verbalizes suicidal thoughts Acute - ICD10 Problem Qualifiers (1) Malingering
[2018-09-29] MEDS: PALIPERIDONE 3 MG TAB.ER PO SCH (20:56)
[2018-09-29] MEDS: MELATONIN 3 MG TAB PO SCH (20:57)
[2018-09-30] MEDS: LORazepam 1 MG TAB PO PRN ×3 (05:11→20:18)
[2018-09-30] MEDS: oxyCODONE IR 5 MG TAB PO PRN ×2 (05:11→11:31)
[2018-09-30] MEDS: amLODIPine BESYLATE 5 MG TAB PO SCH (08:33)
[2018-09-30] MEDS: BUDESONIDE/FORMOTEROL 80/4.5 60 PUFFS/MDI IH SCH ×2 (08:33→20:19)
[2018-09-30] MEDS: CHLORTHALIDONE 25 MG TAB PO SCH (08:35)
--- NOTE | 2018-09-30 14:20 | ASMTBHDC ---
Notes Note: Notes: Pt. reports feeling "okay". Pt. stated he slept "good" and is eating "plenty". Pt. reports no issues with his current medications. Pt. stated he plans to discharge on Monday10/01/18 between 10am and 11am. Pt. stated he can fill and take his medications after discharge. Pt. stated he is able to get himself to his follow up appointments. Pt. requested a regional bus ticket to get home upon discharge. Pt. denied SI, HI, AH and paranoia. Pt. reports VH but declined to speak about them in the milieu. Pt. stated he "feel real comfortable" but is "anxious to leave". Pt. stated he will not be traveling to [place]. Pt. presents as alert, calm, fair eye contact, sarcastic, and cooperative. Staff report pt. sleeping 8 hours and being medication compliant. Date Signed: 09/30/2018 02:20 PM Electronically Signed By:Faby Sharpe
[2018-09-30] MEDS: NICOTINE POLACRILEX 2 MG GUM B PRN ×3 (15:04→18:39)
--- NOTE | 2018-09-30 17:14 | SOAPPROG ---
SOAP Progress Note Assessment/Plan: Assessment: 63 yo with reported h/o schizoaffective disorder. Patient was admitted b/c he threatened to kill himself if medicine d/c'd him from hospital with nowhere to go until he got his next disability check. Per Dr. Anderson's recent notes: 09/26/18 11:26 Mood/psychosis: Unchanged. SI persists. [facility]. Invega Sustenna scheduled for 09/26/18. 09/26/18 11:33 Mood/psychosis: Improved overall. Able to formulate a concrete d/c plan for Monday or Monday. [facility]. 09/27/18 17:27 Mood/psychosis: Continued improvement. [facility]. 09/28/18 16:29 Mood/psychosis: No change. I do not ascribe his GI sx's to the Invega shot. [facility]. D/c Monday. Subjective: Pt seen, discussed with staff. Reports being "really sad", again describes his numerous losses over the past several years - actually extending back to the . C/o stomach ache, nausea, dizziness. PLAN: 09/29/18 16:21 1. Patient requests to shave. He reports he isn't having any SI today and has no intent or plan to hurt himself or anyone else. Will d/c SP1 since patient does not pose risk to himself or others. 2. Patient looking forward to d/c on Monday. 3. No change to treatment plan. 4. Vol 09/30/18 17:10 1. Patient denies any SI/HI today. Claims "meds are working." 2. Doesn't plan to go to [place] anymore, says he will use [employer] money to rent apartment in [place]. 3. No med changes. 4. Expect d/c tomorrow. Subjective: Patient sitting in front of TV complaining about group therapy. MD inquires why patient isn't in group. He says, "their listening to wind in the trees" describing a relaxation exercise going on in group. Patient says, "that's not for me." He claims he is feeling "better" b/c "meds are working" and is looking forward to d/c tomorrow. Patient told staff he plans to rent an apartment in [place] instead of going to [place]. Objective: Vital Signs Temp Pulse Resp BP Pulse Ox 37.0 C 93 16 117/79 93 09/30/18 06:00 09/30/18 06:00 09/30/18 06:00 09/30/18 08:35 09/30/18 06:00 MSE: Affect: Euthymic Mood: "Better" TP: Linear, goal-directed TC: Denies any SI/HI Insight/Judgment: Fair - Time Spent With Patient Time Spent With Patient: 15" - Pending Discharge Pending Discharge Within 24 Hours: Yes Pending Discharge Within 48 Hours: No Pending Discharge Date: 10/01/18 (Likely to d/c tomorrow ) Pending Discharge Time: 11:00 ICD10 Worksheet Patient Problems: Problems Problem Status Onset Malingering Acute RANDAL (acute kidney injury) Acute Acute bronchitis Acute Alcohol intoxication Acute Alcohol withdrawal Acute Alcoholic intoxication without complication Acute Alcoholism Acute Anxiety Acute Bilateral ankle pain Acute Bilateral knee pain Acute Blood bacterial culture positive Acute Bronchitis Acute Chest pain Acute Chronic alcoholism Acute Chronic obstructive pulmonary disease with acute exacerbation Acute Diarrhea Acute Elevated bilirubin Acute Gravely disabled Acute Hand edema Acute Homicidal thoughts Acute Hypertension Acute Hypokalemia Acute Hyponatremia Acute Lactic acidosis Acute Leg edema Acute Leukocytosis Acute Leukocytosis Acute Nausea vomiting and diarrhea Acute Pneumonia Acute Pneumonia Acute Schizoaffective disorder, bipolar type Acute Verbalizes suicidal thoughts Acute - ICD10 Problem Qualifiers (1) Malingering
[2018-09-30] MEDS: PALIPERIDONE 3 MG TAB.ER PO SCH (20:19)
[2018-09-30] MEDS: MELATONIN 3 MG TAB PO SCH (20:19)
[2018-09-30] MEDS ORDERED: oxyCODONE IR 5 MG TAB PO PRN (21:24)
[2018-10-01 06:45] VITALS: BP 106/65
[2018-10-01] MEDS: amLODIPine BESYLATE 5 MG TAB PO SCH (08:15)
[2018-10-01] MEDS: CHLORTHALIDONE 25 MG TAB PO SCH (08:17)
[2018-10-01] MEDS: BUDESONIDE/FORMOTEROL 80/4.5 60 PUFFS/MDI IH SCH (08:17)
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
== END 2018-10-01 11:27 | disposition home or self-care (01) | DRG 885 ==
LOC: BBEH 14:30 → UNDOADMIN 14:46
PROVIDERS: ADMIT Psychiatry & Neurology Psychiatry; ATTEND Psychiatry & Neurology Psychiatry
DX: F25.1 Schizoaffective disorder, depressive type (principal); Z59.0 Homelessness; Z76.5 Malingerer [conscious simulation]; J44.9 Chronic obstructive pulmonary disease, unspecified; G89.29 Other chronic pain; I10 Essential (primary) hypertension; B19.20 Unspecified viral hepatitis C without hepatic coma; F17.200 Nicotine dependence, unspecified, uncomplicated
CPT/HCPCS: J2426; J2997; J7512

== ENCOUNTER 2018-10-22 09:41 | Emergency (ER) | payer MEDICAID ==
--- NOTE | 2018-10-22 09:43 | EDPHY ---
H & P Time Seen by Provider: 10/22/18 09:41 HPI/ROS: CHIEF COMPLAINT: Diarrhea for 2 days HISTORY OF PRESENT ILLNESS: Arrives by EMS from the senior living complaining of diarrhea for 2 days. He was last on azithromycin in September just before Miesha or respiratory infection. Other people he has been exposed to have norovirus. Presents with nausea but no vomiting, multiple episodes of watery diarrhea with some abdominal cramping. Moderate to severe nature, no red blood per rectum or mucus or melena. No foreign travel. Not better or worse with anything. REVIEW OF SYSTEMS: Eye: no change in vision ENT: no sore throat Cardiac: no chest pain or syncope Pulmonary: no cough or SOB Abdomen: HPI Musculoskeletal: no back pain Skin: no rash Neuro: no headache Constitutional: no fever : no urinary symptoms A comprehensive 10 point review of systems is otherwise negative aside from elements mentioned in the history of present illness. PAST MEDICAL HISTORY: History and physical dated 09/18/2018 includes schizoaffective disorder, COPD, chronic suicidality, hypertension, cervical spine stenosis, alcoholism Social history: At the homeless senior living General Appearance: Alert and conversant, cooperative. Eyes: No scleral icterus. ENT, Mouth: Normal mucous membranes. Respiratory: Normal respiratory effort, breath sounds equal, lungs are clear to auscultation. Cardiovascular: Regular rate and rhythm. Gastrointestinal: Abdomen is soft and non tender. Normal bowel sounds, not in pain when I palpate in any quadrant. Neurological: Alert, face symmetric, normal motor and sensory in extremities. Skin: Warm and dry, no rashes. Musculoskeletal: No peripheral edema. Psychiatric: Not agitated. Emergency Department course/MDM: Patient received some IV fluids and then the IV stopped functioning. 1047: Labs reviewed, patient would like to leave which I think is reasonable. 4 mg oral Imodium. I think Clostridium difficile is less likely than community- acquired infectious diarrhea such as a viral. WBC not severely elevated. Patient is not toxic or febrile and abdominal exam is normal. Smoking Status: Heavy smoker Constitutional: Initial Vital Signs Temperature (C) 36.8 C 10/22/18 09:41 Heart Rate 97 10/22/18 09:41 Respiratory Rate 18 10/22/18 09:41 Blood Pressure 181/114 H 10/22/18 09:41 O2 Sat (%) 94 10/22/18 09:41 O2 Delivery Mode Room Air Allergies/Adverse Reactions: ketorolac [From Toradol] Allergy (Severe, Verified 09/07/18 08:12) Anaphylaxis levofloxacin [From Levaquin] Allergy (Severe, Verified 09/07/18 08:12) tendinopathy lisinopril Allergy (Severe, Verified 09/07/18 08:12) Anaphylaxis Home Medications: Medication Instructions Recorded Albuterol [Proventil Inhaler HFA 1 - 2 puffs IH Q4H PRN #1 mdi 10/01/18 (*)] Budesonide/Formoterol 80/4.5 2 puffs IH BID #1 mdi 10/01/18 [Symbicort 80-4.5 Mcg Inhaler] Budesonide/Formoterol 80/4.5 2 puffs IH BID #1 mdi 10/01/18 [Symbicort 80-4.5 Mcg Inhaler] Chlorthalidone [Chlorthalidone 25 25 mg PO DAILY #30 tab 10/01/18 mg (*)] Ibuprofen [Motrin (*)] 200 mg PO DAILY PRN tab 10/01/18 Melatonin [Melatonin 3 MG (*)] 3 mg PO HS tab 10/01/18 Paliperidone Palmitate [Invega 234 mg IM ONCE #1 syr 10/01/18 Sustenna (*)] Paliperidone [Invega 3mg ER (*)] 3 mg PO HS #30 tab.er 10/01/18 amLODIPine BESYLATE [Norvasc 5 mg 10 mg PO DAILY #60 tab 10/01/18 (*)] oxyCODONE IR [Oxycodone Ir (*)] 5 mg PO Q4HRS PRN #14 tab 10/01/18 Medical Decision Making Differential Diagnosis: Differential considered including but not limited to infectious diarrhea, GI bleed, Clostridium difficile, acute surgical abdominal process, gastroenteritis - Data Points Laboratory Results: Laboratory Results 10/22/18 10:20 10/22/18 10:20 10/22/18 10/22/18 10:20 10:20 WBC 11.64 10^3/uL H 10^3/uL (3.80-9.50) RBC 4.91 10^6/uL 10^6/uL (4.40-6.38) Hgb 14.7 g/dL g/dL (13.7-17.5) Hct 45.8 % % (40.0-51.0) MCV 93.3 fL fL (81.5-99.8) MCH 29.9 pg pg (27.9-34.1) MCHC 32.1 g/dL L g/dL (32.4-36.7) RDW 15.3 % H % (11.5-15.2) Plt Count 348 10^3/uL 10^3/uL (150-400) MPV 10.1 fL fL (8.7-11.7) Neut % (Auto) 73.2 % % (39.3-74.2) Lymph % (Auto) 14.1 % L % (15.0-45.0) Hamlin % (Auto) 11.1 % % (4.5-13.0) Eos % (Auto) 0.9 % % (0.6-7.6) Baso % (Auto) 0.4 % % (0.3-1.7) Nucleat RBC Rel Count 0.0 % % (0.0-0.2) Absolute Neuts (auto) 8.53 10^3/uL H 10^3/uL (1.70-6.50) Absolute Lymphs (auto) 1.64 10^3/uL 10^3/uL (1.00-3.00) Absolute Monos (auto) 1.29 10^3/uL H 10^3/uL (0.30-0.80) Absolute Eos (auto) 0.10 10^3/uL 10^3/uL (0.03-0.40) Absolute Basos (auto) 0.05 10^3/uL 10^3/uL (0.02-0.10) Absolute Nucleated RBC 0.00 10^3/uL 10^3/uL (0-0.01) Immature Gran % 0.3 % % (0.0-1.1) Immature Gran # 0.03 10^3/uL 10^3/uL (0.00-0.10) Sodium 137 mEq/L mEq/L (135-145) Potassium 4.3 mEq/L mEq/L (3.5-5.2) Chloride 109 mEq/L mEq/L (97-110) Carbon Dioxide 23 mEq/l mEq/l (22-31) Anion Gap 5 mEq/L L mEq/L (6-14) BUN 11 mg/dL mg/dL (7-23) Creatinine 0.7 mg/dL mg/dL (0.7-1.3) Estimated GFR > 60 Glucose 87 mg/dL mg/dL (70-100) Calcium 8.8 mg/dL mg/dL (8.5-10.4) Total Bilirubin 0.6 mg/dL mg/dL (0.1-1.4) Conjugated Bilirubin 0.4 mg/dL mg/dL (0.0-0.5) Unconjugated Bilirubin 0.2 mg/dL mg/dL (0.0-1.1) AST 21 IU/L IU/L (17-59) ALT 21 IU/L IU/L (21-72) Alkaline Phosphatase 69 IU/L IU/L (38-126) Total Protein 6.6 g/dL g/dL (6.3-8.2) Albumin 3.8 g/dL g/dL (3.5-5.0) Lipase 138 IU/L IU/L (23-300) Medications Given: Discontinued Medications Sodium Chloride (Ns) 1,000 mls @ 0 mls/hr IV EDNOW ONE; Wide Open PRN Reason: Protocol Stop: 10/22/18 10:00 Last Admin: 10/22/18 10:26 Dose: 1,000 mls Loperamide HCl ( Imodium) 2 mg PO EDNOW ONE Stop: 10/22/18 10:44 Last Admin: 10/22/18 10:44 Dose: 2 mg Loperamide HCl ( Imodium) 2 mg PO EDNOW ONE Stop: 10/22/18 10:47 Last Admin: 10/22/18 10:49 Dose: 2 mg Ondansetron HCl (Zofran) 4 mg IVP EDNOW ONE Stop: 10/22/18 10:00 Last Admin: 10/22/18 10:25 Dose: 4 mg Departure - Departure Disposition: Home, Routine, Self-Care Clinical Impression: Diarrhea Qualifiers: Diarrhea type: unspecified type Qualified Code(s): R19.7 - Diarrhea, unspecified Condition: Good Instructions: Loperamide (By mouth), Acute Diarrhea (ED) Additional Instructions: Imodium 1 additional tablet every time you have a loose diarrhea stool, maximum 4 tablets in 24 hr. Referrals: [facility],. [Clinic] - As per Instructions
[2018-10-22] MEDS ORDERED: NS 1,000 ML IV ONE (09:59)
[2018-10-22] MEDS ORDERED: ONDANSETRON 4 MG/2 ML VIAL IVP ONE (09:59)
[2018-10-22 10:34] LABS: PLATELET COUNT 348 10^3/uL (150-400)
[2018-10-22] MEDS ORDERED: LOPERAMIDE HCL 2 MG CAP ONE (10:42)
[2018-10-22] MEDS ORDERED: LOPERAMIDE HCL 2 MG CAP PO ONE ×2 (10:43→10:46)
[2018-10-22 10:56] VITALS: BP 123/89
== END 2018-10-22 10:54 | disposition home or self-care (01) ==
LOC: EDUNIT#
DX: R19.7 Diarrhea, unspecified (principal); J44.9 Chronic obstructive pulmonary disease, unspecified; I10 Essential (primary) hypertension; F17.200 Nicotine dependence, unspecified, uncomplicated; E86.9 Volume depletion, unspecified
CPT/HCPCS: 96374; J2405

== ENCOUNTER 2018-11-05 04:22 | Inpatient (IN) | payer MEDICAID ==
--- NOTE | 2018-11-05 04:25 | EDPHY ---
H & P Time Seen by Provider: 11/05/18 04:24 HPI/ROS: HPI CHIEF COMPLAINT: Shortness of breath, wheezing. Dyspnea on exertion. HISTORY OF PRESENT ILLNESS: 63-year-old male, well known to myself as well as the emergency room, alcoholic, although states he has not drank alcohol in months, presents emergency room shortness of breath from the homeless detention. Patient does smoke tobacco daily states half pack per day nail. Presents emergency room shortness of breath, wheezing. Denies chest pain. States he has dyspnea on exertion. Room air saturation 87%. Arrived to the emergency room in no acute distress but has wheezing throughout lung arreguin. History of COPD. Does not wear oxygen. Continues to smoke tobacco. Past Medical History: Significant medical history for hypertension, schizoaffective disorder, COPD, hepatitis-C, IV drug use, anxiety and depression Past Surgical History: No recent surgery Social History: Homeless, smokes tobacco. Denies alcohol use and few months. Family History: Noncontributory ROS REVIEW OF SYSTEMS: 10 Systems were reviewed and negative with the exception of the elements mentioned in the history of present illness. Exam Constitutional triage nursing summary reviewed, vital signs reviewed, awake/ alert. Nontoxic however hypoxic 87% on room air Eyes normal conjunctivae and sclera, EOMI, PERRLA. HENT normal inspection, atraumatic, moist mucus membranes, no epistaxis, neck supple/ no meningismus, no raccoon eyes. Respiratory wheezing throughout all lung arreguin. Cardiovascular rate normal, regular rhythm, no murmur, no edema, distal pulses normal. Gastrointestinal soft, non-tender, no rebound, no guarding, normal bowel sounds, no distension, no pulsatile mass. Genitourinary no CVA tenderness. Musculoskeletal no midline vertebral tenderness, full range of motion, no calf swelling, no tenderness of extremities, no meningismus, good pulses, neurovascularly intact. Skin pink, warm, & dry, no rash, skin atraumatic. Neurologic awake, alert and oriented x 3, AAOx3, moves all 4 extremities equally, motor intact, sensory intact, CN II-XII intact, normal cerebellar, normal vision, normal speech. Psychiatric normal mood/affect. Heme/Lymph/Immune no lymphadenopathy. Differential Diagnosis: Includes but is not limited to in a particular order COPD exacerbation, pneumonia, viral syndrome, URI, viral pneumonia, bacterial pneumonia Medical Decision Making: Plan for this patient DuoNeb breathing treatment, chest x-ray two view, basic blood work, and re-evaluate Re-evaluation: ED x-ray chest one view negative for focal pneumonia. Plan for this patient is received a DuoNeb breathing treatment, as well as steroids. On re-examination she still wheezing. He is on supplemental oxygen. Patient need to be admitted for COPD exacerbation. Patient has an IV Levaquin allergy Will give a dose of azithromycin orally Will admit to the hospitalist service for COPD exacerbation Re-examination of his lungs at 5:27 a.m. still wheezing. No distress. On supplemental oxygen 2l Smoke hospitalist service Dr. Patricio agrees to admit. Source: Patient, EMS - Personal History Tetanus Vaccine Date: < 10 YEARS - Medical/Surgical History Hx Asthma: Yes Hx Chronic Respiratory Disease: No Hx Diabetes: No Hx Cardiac Disease: Yes Hx Renal Disease: No Hx Cirrhosis: Yes Hx Alcoholism: Yes Hx HIV/AIDS: No Hx Splenectomy or Spleen Trauma: No Other PMH: MEDICAL- ANXIETY, LIVER DISEASE, ASCITES, IVDA, HEP C+, alcohol and drug abuse/MENTAL HEALTH, htn,cirrohsis, hx of 3 ruptured discs/back surgs/ tonsillectomy, - Social History Smoking Status: Heavy smoker Constitutional: Initial Vital Signs Temperature (C) 36.8 C 11/05/18 04:22 Heart Rate 104 H 11/05/18 04:22 Respiratory Rate 20 11/05/18 04:22 Blood Pressure 178/105 H 11/05/18 04:22 O2 Sat (%) 94 11/05/18 04:22 O2 Delivery Mode Nasal Cannula O2 (L/minute) 5 Allergies/Adverse Reactions: ketorolac [From Toradol] Allergy (Severe, Verified 09/07/18 08:12) Anaphylaxis levofloxacin [From Levaquin] Allergy (Severe, Verified 09/07/18 08:12) tendinopathy lisinopril Allergy (Severe, Verified 09/07/18 08:12) Anaphylaxis Home Medications: Medication Instructions Recorded Ibuprofen [Motrin (*)] 200 mg PO DAILY PRN 11/05/18 Medical Decision Making - Data Points Laboratory Results: Laboratory Results 11/05/18 04:45 11/05/18 04:45 Medications Given: Acetaminophen (Tylenol) 650 mg PO Q4HRS PRN PRN Reason: Pain, Mild/Fever, Can Take PO Stop: 05/04/19 05:28 Last Admin: 11/05/18 22:13 Dose: 650 mg Albuterol/Ipratropium (Duoneb) 3 ml IH TID JEROME Stop: 05/04/19 08:59 Last Admin: 11/05/18 20:28 Dose: 3 ml Budesonide (Budesonide 0.5mg/2ml Neb) 0.5 mg [facility] BID [facility] Stop: 05/04/19 08:59 Last Admin: 11/05/18 20:29 Dose: 0.5 mg Enoxaparin Sodium (Lovenox) 40 mg SC DAILY JEROME Stop: 05/04/19 08:59 Last Admin: 11/05/18 07:52 Dose: 40 mg Hydralazine HCl (Apresoline) 10 mg PO QID PRN PRN Reason: SBP Greater Than Stop: 05/04/19 11:59 Last Admin: 11/05/18 15:52 Dose: 10 mg Ibuprofen (Motrin) 200 mg PO DAILY PRN PRN Reason: Pain, Mild Stop: 05/04/19 10:17 Last Admin: 11/05/18 12:12 Dose: 200 mg Nicotine (Nicoderm Cq) 14 mg TD DAILY PRN PRN Reason: Nicotine Withdrawal Stop: 05/04/19 08:59 Last Admin: 11/05/18 08:53 Dose: 14 mg Discontinued Medications Albuterol/Ipratropium (Duoneb) 3 ml IH EDNOW ONE Stop: 11/05/18 04:30 Last Admin: 11/05/18 04:46 Dose: 3 ml Azithromycin (Zithromax) 500 mg PO EDNOW ONE PRN Reason: Protocol Stop: 11/05/18 05:27 Last Admin: 11/05/18 05:39 Dose: 500 mg Ibuprofen (Motrin) 600 mg PO ONCE ONE Stop: 11/05/18 16:31 Last Admin: 11/05/18 16:25 Dose: 600 mg Methylprednisolone Sodium Succinate (Solu-Medrol) 125 mg IVP EDNOW ONE Stop: 11/05/18 04:30 Last Admin: 11/05/18 04:45 Dose: 125 mg Point of Care Test Results: Chemistry 11/05/18 04:49 POC Troponin I 0.00 ng/mL ng/mL (0.00-0.08) Departure - Departure Disposition: [facility] Inpatient Acute Clinical Impression: COPD exacerbation
[2018-11-05] MEDS ORDERED: methylPREDNISolone SOD SUCC 125 MG/2 ML VIAL IVP ONE (04:29)
[2018-11-05] MEDS ORDERED: IPRATROPIUM/ALBUTEROL 3 ML DEYVIAL IH ONE (04:29)
[2018-11-05 04:56] LABS: PLATELET COUNT 304 10^3/uL (150-400)
[2018-11-05] MEDS ORDERED: AZITHROMYCIN 250 MG TAB PO ONE (05:26)
[2018-11-05] MEDS ORDERED: ONDANSETRON DISINTEGRATING 4 MG TAB PO PRN (05:29)
[2018-11-05] MEDS ORDERED: ONDANSETRON 4 MG/2 ML VIAL IVP PRN (05:29)
[2018-11-05] MEDS ORDERED: NS 1,000 ML IV SCH (05:30)
[2018-11-05] MEDS: ENOXAPARIN 40 MG/0.4 ML SYR SC SCH (07:52)
--- NOTE | 2018-11-05 07:55 | PDGENHP ---
History and Physical - Chief Complaint Shortness of breath or wheezing - History of Present Illness Source-patient provides history is fair history. EMR was reviewed and case discussed with ED provider. HPI-this 63-year-old gentleman with past medical history significant for schizoaffective disorder, anxiety, alcohol dependence recently in remission, HCV , chronic back pain with history cervical spine stenosis, HTN, COPD and continued tobacco abuse presents emergency department today with complaints of several day history of worsening shortness of breath cough and wheezing. Patient reports subjective fevers and chills. Positive sick contacts. He reports some increasing sputum production. Patient with multiple ER visits and hospitalizations most recently discharged 09/2018 for suicidal ideation and alcohol intoxication. Since that time patient reports he has abstained from alcohol. He has also cut back on tobacco use. He does not wear any baseline oxygen. History Information - Allergies/Home Medication List Allergies/Adverse Reactions: ketorolac [From Toradol] Allergy (Severe, Verified 09/07/18 08:12) Anaphylaxis levofloxacin [From Levaquin] Allergy (Severe, Verified 09/07/18 08:12) tendinopathy lisinopril Allergy (Severe, Verified 09/07/18 08:12) Anaphylaxis Home Medications: NK [No Known Home Meds] 11/05/18 [Last Taken Unknown] I have personally reviewed and updated: family history, medical history, social history, surgical history - Past Medical History COPD ( Recently experiencing acute COPD exacerbation), hypertension Additional medical history: hospitalization for pneumoinia [place] 02/07/17. HTN. COPD. Schizoaffective disorder. Anxiety disorder. Hepatitis C, s/p Harvoni treatment. h/o chronic alcohol use. h/o IV drug abuse - Surgical History Reports: no pertinent surgical hx Additional surgical history: colonoscopy 2016 with polyps. laminectomy. t&A - Family History Additional family history: denies any recent contact with family. Colon cancer in father's side of the family - Social History Smoking Status: Heavy smoker Tobacco Use: Cigarettes (Patient has cut back from 1 pack per day down to 0.5 packs per day. He has a smoking since age of 14. ) Drug Use: None Additional social history: Pt lives alone, is independent in ADLs. Cor-full. Review of Systems Review of Systems: ROS: 10pt was reviewed & negative except for what was stated in HPI & below Physical Exam Physical Exam: Selected Entries 11/05/18 04:22 Blood Pressure Automatic Method Heart Rate 104 H Respiratory 20 Rate O2 Sat (%) 94 Temperature (C) 36.8 C Blood Pressure 178/105 H Mean Arterial 129 H Pressure (MAP) O2 (L/minute) 5 O2 Delivery Nasal Cannula Mode Temperature Oral Source Temp Pulse Resp BP Pulse Ox 36.4 C 94 17 184/122 H 90 L 11/05/18 07:33 11/05/18 07:33 11/05/18 07:33 11/05/18 07:33 11/05/18 07:33 O2 (L/minute) 3 Constitutional: no apparent distress, other (NAD. Help male lays quietly in bed on gurney. Appears older than stated age.) Eyes: PERRL, anicteric sclera, EOMI, No scleral injection Ears, Nose, Mouth, Throat: poor dentition, dry mucous membranes, other (No nasal discharge.) Cardiovascular: regular rate and rhythym, no murmur, rub, or gallop, pulses symmetric bilaterally, other (Slightly distant heart sounds.), No edema Peripheral Pulses: 2+: dorsalis-pedis (R), dorsalis-pedis (L) Respiratory: reduced air movement, expiratory wheeze (Anterior lung field and lower posterior lung arreguin.), No respiratory distress, No rhonchi Gastrointestinal: normoactive bowel sounds, soft, non-tender abdomen, other ( Obese abdomen.), No distension Genitourinary: no bladder tenderness, No lopez in urethra Skin: warm, normal color, no rashes or abrasions Musculoskeletal: full muscle strength, other (Moves all extremities.) Neurologic: AAOx3, sensation intact bilaterally, other (Grossly nonfocal exam.) , No facial droop Psychiatric: interacting appropriately, not anxious, not encephalopathic, thought process linear, flat affect Lab Data & Imaging Review 11/05/18 04:45 11/05/18 04:45 WBC 9.08 10^3/uL (3.80-9.50) 11/05/18 04:45 RBC 5.11 10^6/uL (4.40-6.38) 11/05/18 04:45 Hgb 15.3 g/dL (13.7-17.5) 11/05/18 04:45 Hct 45.8 % (40.0-51.0) 11/05/18 04:45 MCV 89.6 fL (81.5-99.8) 11/05/18 04:45 MCH 29.9 pg (27.9-34.1) 11/05/18 04:45 MCHC 33.4 g/dL (32.4-36.7) 11/05/18 04:45 RDW 14.6 % (11.5-15.2) 11/05/18 04:45 Plt Count 304 10^3/uL (150-400) 11/05/18 04:45 MPV 9.9 fL (8.7-11.7) 11/05/18 04:45 Neut % (Auto) 59.0 % (39.3-74.2) 11/05/18 04:45 Lymph % (Auto) 23.6 % (15.0-45.0) 11/05/18 04:45 [place] % (Auto) 15.1 % (4.5-13.0) H 11/05/18 04:45 Eos % (Auto) 1.3 % (0.6-7.6) 11/05/18 04:45 Baso % (Auto) 0.7 % (0.3-1.7) 11/05/18 04:45 Nucleat RBC Rel Count 0.0 % (0.0-0.2) 11/05/18 04:45 Absolute Neuts (auto) 5.36 10^3/uL (1.70-6.50) 11/05/18 04:45 Absolute Lymphs (auto) 2.14 10^3/uL (1.00-3.00) 11/05/18 04:45 Absolute Monos (auto) 1.37 10^3/uL (0.30-0.80) H 11/05/18 04:45 Absolute Eos (auto) 0.12 10^3/uL (0.03-0.40) 11/05/18 04:45 Absolute Basos (auto) 0.06 10^3/uL (0.02-0.10) 11/05/18 04:45 Absolute Nucleated RBC 0.00 10^3/uL (0-0.01) 11/05/18 04:45 Immature Gran % 0.3 % (0.0-1.1) 11/05/18 04:45 Immature Gran # 0.03 10^3/uL (0.00-0.10) 11/05/18 04:45 Sodium 137 mEq/L (135-145) 11/05/18 04:45 Potassium 4.4 mEq/L (3.5-5.2) 11/05/18 04:45 Chloride 109 mEq/L (97-110) 11/05/18 04:45 Carbon Dioxide 21 mEq/l (22-31) L 11/05/18 04:45 Anion Gap 7 mEq/L (6-14) 11/05/18 04:45 BUN 11 mg/dL (7-23) 11/05/18 04:45 Creatinine 0.6 mg/dL (0.7-1.3) L 11/05/18 04:45 Estimated GFR > 60 11/05/18 04:45 Glucose 115 mg/dL (70-100) H 11/05/18 04:45 Calcium 9.0 mg/dL (8.5-10.4) 11/05/18 04:45 POC Troponin I 0.00 ng/mL (0.00-0.08) 11/05/18 04:49 NT-Pro-B Natriuret Pep 152 pg/mL (0-125) H 11/05/18 04:45 Ethyl Alcohol < 10 mg/dL (0-10) 11/05/18 04:45 Imaging Review: Chest x-ray reviewed myself. No consolidations Visualized and Interpreted Chest x-ray results: Yes EKG additional interpertation: EKG reviewed myself. Sinus tach 90s. QTC [address] changes. Assessment & Plan Assessment: 63-year-old gentleman with past medical history significant for schizoaffective disorder, anxiety, alcohol dependence recently in remission, HCV, chronic back pain with history cervical spine stenosis, HTN, COPD and continued tobacco abuse COPD exacerbation (Acute) - nebs, steroid, azithromycin . Check respiratory PCR. Hypoxia - titrate oxygen to maintain sats >90%. no previous need for baseline oxygen. Accelerated hypertension - the no medications list currently on med rec. Awaiting updated med list. Hydralazine p.r.n.. Tobacco dependence - cessation encouraged. Nicotine patch p.r.n. History of alcohol dependence - patient reports he has quit drinking altogether. His alcohol levels negative. Schizoaffective disorder anxiety - Ativan p.r.n.. FEN - IVF for hydration. advance diet as tolerated. PPX - SCDs. lovenox if patient should stay additional day. encourage mobilization. COR - FULL Dispo - patient admitted observation status on med surge floor.
[2018-11-05] MEDS: hydrALAZINE 10 MG TAB PO PRN ×2 (08:09→15:52)
[2018-11-05] MEDS: IPRATROPIUM/ALBUTEROL 3 ML DEYVIAL IH SCH ×3 (08:21→20:28)
[2018-11-05] MEDS: BUDESONIDE 0.5 MG/2 ML AMPUL.NEB IH SCH ×2 (08:21→20:29)
[2018-11-05] MEDS: NICOTINE 14 MG/24 HR PATCH TD PRN (08:53)
[2018-11-05] MEDS: ACETAMINOPHEN 325 MG TAB PO PRN ×3 (08:56→22:13)
[2018-11-05] MEDS: IBUPROFEN 200 MG TAB PO PRN (12:12)
--- NOTE | 2018-11-05 15:19 | HOSPPROG ---
Hospitalist Progress Note Assessment/Plan: 63-year-old gentleman with past medical history significant for schizoaffective disorder, anxiety, alcohol dependence recently in remission, HCV, chronic back pain with history cervical spine stenosis, HTN, COPD and continued tobacco abuse COPD exacerbation (Acute) - nebs, steroid, azithromycin . Check respiratory PCR. Hypoxia - titrate oxygen to maintain sats >90%. no previous need for baseline oxygen. Accelerated hypertension - the no medications list currently on med rec. Awaiting updated med list. Hydralazine p.r.n.. Tobacco dependence - cessation encouraged. Nicotine patch p.r.n. History of alcohol dependence - patient reports he has quit drinking altogether. His alcohol levels negative. Schizoaffective disorder anxiety - Ativan p.r.n.. FEN - IVF for hydration. advance diet as tolerated. PPX - SCDs. lovenox if patient should stay additional day. encourage mobilization. COR - FULL Dispo - patient admitted observation status on [facility] floor. Subjective: Tired. Objective: Vital Signs Temp Pulse Resp BP Pulse Ox 36.8 C 122 H 17 153/83 H 92 11/05/18 11:50 11/05/18 11:50 11/05/18 11:50 11/05/18 11:50 11/05/18 11:50 Microbiology 11/05/18 07:45 Respiratory Panel (PCR) - Final Nasal, Sinus - Swab Human Rhinovirus/Enterovirus 11/04/18 11/05/18 11/06/18 05:59 05:59 05:59 Intake Total 0 Output Total 300 Balance -300 - Physical Exam Constitutional: chronically ill appearing, obese Eyes: PERRL, anicteric sclera Ears, Nose, Mouth, Throat: moist mucous membranes, hearing normal Cardiovascular: No JVD, No edema Respiratory: no respiratory distress, rhonchi Gastrointestinal: normoactive bowel sounds, No ascites Skin: warm, normal color Musculoskeletal: generalized weakness Psychiatric: not anxious, not encephalopathic ICD10 Worksheet Patient Problems: Problems Problem Status Onset Schizoaffective disorder, bipolar type Acute Anxiety Acute RANDAL (acute kidney injury) Acute Nausea vomiting and diarrhea Acute Alcoholism Acute Hyponatremia Acute Leukocytosis Acute Elevated bilirubin Acute Hypokalemia Acute Lactic acidosis Acute Alcohol intoxication Acute Leg edema Acute Hand edema Acute Pneumonia Acute Chronic obstructive pulmonary disease with acute exacerbation Acute Pneumonia Acute Leukocytosis Acute Diarrhea Acute Bilateral knee pain Acute Bilateral ankle pain Acute Chronic alcoholism Acute Gravely disabled Acute Alcohol withdrawal Acute Bronchitis Acute Blood bacterial culture positive Acute Chest pain Acute Acute bronchitis Acute Hypertension Acute Alcoholic intoxication without complication Acute Verbalizes suicidal thoughts Acute Homicidal thoughts Acute Malingering Acute COPD exacerbation Acute
[2018-11-05] MEDS ORDERED: IBUPROFEN 600 MG TAB PO ONE (16:30)
--- NOTE | 2018-11-05 16:34 | ASMTCMCOM ---
CM Note CM Note Notes: [facility], has schizoaffective disorder, anxiety, alcohol dependence. Pt has extensive [facility] history, chart review indicates pt connected to [facility] and goes to [facility]. [facility] Pt declined OT eval today. D/c needs are TBD. CM to follow. Date Signed: 11/05/2018 04:33 PM Electronically Signed By:CLEMENTE Brewer
[2018-11-06] MEDS: IBUPROFEN 200 MG TAB PO PRN (04:53)
[2018-11-06] MEDS: hydrALAZINE 10 MG TAB PO PRN (04:53)
[2018-11-06] MEDS: ALBUTEROL 3 ML DEYVIAL IH PRN (05:43)
[2018-11-06] MEDS: BUDESONIDE 0.5 MG/2 ML AMPUL.NEB IH SCH ×2 (09:25→21:37)
[2018-11-06] MEDS: IPRATROPIUM/ALBUTEROL 3 ML DEYVIAL IH SCH ×3 (09:25→21:37)
[2018-11-06] MEDS: predniSONE 20 MG TAB PO SCH (10:01)
[2018-11-06] MEDS: AZITHROMYCIN 250 MG TAB PO SCH (10:01)
[2018-11-06] MEDS: NICOTINE 14 MG/24 HR PATCH TD PRN (10:01)
[2018-11-06] MEDS: amLODIPine BESYLATE 5 MG TAB PO SCH (10:02)
[2018-11-06] MEDS: ENOXAPARIN 40 MG/0.4 ML SYR SC SCH (10:02)
[2018-11-06] MEDS ORDERED: LACTULOSE 20 GM/30 ML UDCUP PO PRN (10:23)
[2018-11-06] MEDS ORDERED: POLYETHYLENE GLYCOL 3350 17 GM PKT PO PRN (10:23)
[2018-11-06] MEDS ORDERED: BISACODYL 10 MG SUPP PR PRN (10:23)
[2018-11-06] MEDS ORDERED: MAGNESIUM HYDROXIDE 30 ML UDCUP PO PRN (10:23)
[2018-11-06] MEDS: FLUTICASONE NASAL 120 SPRAYS/16 GM MDI EACHNARE SCH (12:07)
[2018-11-06] MEDS: ACETAMINOPHEN 325 MG TAB PO PRN ×3 (12:11→22:16)
--- NOTE | 2018-11-06 13:47 | HOSPPROG ---
Hospitalist Progress Note Assessment/Plan: 63-year-old gentleman with past medical history significant for schizoaffective disorder, anxiety, alcohol dependence recently in remission, HCV, chronic back pain with history cervical spine stenosis, HTN, COPD and continued tobacco abuse #COPD exacerbation (Acute) - nebs, steroid, azithromycin - Rhinovirus #Hypoxia - titrate oxygen to maintain sats >90%. - no previous need for baseline oxygen #Accelerated hypertension - better - Hydralazine p.r.n. #Tobacco dependence - cessation encouraged. -Nicotine patch p.r.n. #History of alcohol dependence - patient reports he has quit drinking altogether. - His alcohol levels negative. #Schizoaffective disorder anxiety - Ativan p.r.n. FEN - IVF for hydration. advance diet as tolerated. PPX - SCDs. lovenox if patient should stay additional day. encourage mobilization. COR - FULL Dispo -change to inpt status still requiring supplemental oxygen and feels very ill Subjective: Feels terrible. No pain. Coughing. Objective: Vital Signs Temp Pulse Resp BP Pulse Ox 36.9 C 87 18 154/92 H 91 L 11/06/18 11:29 11/06/18 11:29 11/06/18 11:29 11/06/18 11:29 11/06/18 11:29 Microbiology 11/05/18 07:45 Respiratory Panel (PCR) - Final Nasal, Sinus - Swab Human Rhinovirus/Enterovirus 11/05/18 11/06/18 11/07/18 05:59 05:59 05:59 Intake Total 800 Output Total 1600 250 Balance -800 -250 - Physical Exam Constitutional: appears nourished, chronically ill appearing Eyes: PERRL, anicteric sclera Ears, Nose, Mouth, Throat: moist mucous membranes, hearing normal Cardiovascular: No JVD, No edema Respiratory: reduced air movement, expiratory wheeze, rhonchi Gastrointestinal: No tenderness, No ascites Skin: warm, normal color Musculoskeletal: no joint effusions, generalized weakness Neurologic: AAOx3 Psychiatric: interacting appropriately, not anxious, not encephalopathic ICD10 Worksheet Patient Problems: Problems Problem Status Onset Schizoaffective disorder, bipolar type Acute Anxiety Acute RANDAL (acute kidney injury) Acute Nausea vomiting and diarrhea Acute Alcoholism Acute Hyponatremia Acute Leukocytosis Acute Elevated bilirubin Acute Hypokalemia Acute Lactic acidosis Acute Alcohol intoxication Acute Leg edema Acute Hand edema Acute Pneumonia Acute Chronic obstructive pulmonary disease with acute exacerbation Acute Pneumonia Acute Leukocytosis Acute Diarrhea Acute Bilateral knee pain Acute Bilateral ankle pain Acute Chronic alcoholism Acute Gravely disabled Acute Alcohol withdrawal Acute Bronchitis Acute Blood bacterial culture positive Acute Chest pain Acute Acute bronchitis Acute Hypertension Acute Alcoholic intoxication without complication Acute Verbalizes suicidal thoughts Acute Homicidal thoughts Acute Malingering Acute COPD exacerbation Acute
--- NOTE | 2018-11-06 15:27 | PDMN ---
Medical Necessity Medical necessity: MCG M100 COPD, A-2 days: 63 yo w/ acute COPD exacerbation. Initially OBS for workup but pt cont need for nebs and steroids. Cont to need O2 to keep sats >90% (no previous need for baseline O2) requiring additional MN for ongoing tx. Hx COPD w/ recent exacerbation, HTN, schizoaffective d/o, hep C , etoh/IV drug abuse in remission. Change to IP status 11/06/18@1423 per YARDAGE CALLER order.
--- NOTE | 2018-11-06 15:43 | ASMTCMCOM ---
CM Note CM Note Notes: Pt declined OT again. Pt reports his d/c plan is return to [facility], pt states he has a reserved bed and will not need CM to reserve him one. Pt reports he can make his own follow up appointments with [facility], [facility] and declines CM assistance. Pt reports he has several hundreds of dollars so he will be able to cab himself to the [facility]. Pt states his ultimate goal is to return to [facility] when his Medicaid is approved there. Date Signed: 11/06/2018 03:42 PM Electronically Signed By:CLEMENTE Brewer
[2018-11-06] MEDS: SENNOSIDES/DOCUSATE SODIUM TAB PO SCH (22:18)
[2018-11-07] MEDS: ACETAMINOPHEN 325 MG TAB PO PRN ×3 (05:30→18:14)
[2018-11-07] MEDS: ALBUTEROL 3 ML DEYVIAL IH PRN (06:16)
[2018-11-07] MEDS: BUDESONIDE 0.5 MG/2 ML AMPUL.NEB IH SCH ×2 (08:57→20:57)
[2018-11-07] MEDS: IPRATROPIUM/ALBUTEROL 3 ML DEYVIAL IH SCH ×3 (08:57→20:57)
--- NOTE | 2018-11-07 09:46 | HOSPPROG ---
Hospitalist Progress Note Assessment/Plan: 63-year-old gentleman with past medical history significant for schizoaffective disorder, anxiety, alcohol dependence recently in remission, HCV, chronic back pain with history cervical spine stenosis, HTN, COPD and continued tobacco abuse. First encounter, chart reviewed. *COPD exacerbation (Acute) -steroids and azithro -PCR notes Human rhinovirus and enterovirus -on 3 liters *hypoxemia -usually not on oxygen -lung sounds are coarse w significant rhonchi and wheezing-will get a chest x ray *HTN -bp elevated *schizoaffective disorder -will decrease prednisone dose, making him agitated *hx of alcohol dependence *nicotine dependence -cessation recommended *plan: get a chest xray, continue supportive care, decrease prednisone dose Subjective: Liborio feels terrible today, his sinus are congested, he is tired and worn out. Objective: Vital Signs Temp Pulse Resp BP Pulse Ox 36.8 C 100 20 171/102 H 91 L 11/07/18 07:21 11/07/18 08:57 11/07/18 08:57 11/07/18 07:21 11/07/18 08:57 11/06/18 11/07/18 11/08/18 05:59 05:59 05:59 Output Total 1425 Balance -1425 - Physical Exam Constitutional: uncomfortable Eyes: PERRL Ears, Nose, Mouth, Throat: hearing normal Cardiovascular: regular rate and rhythym Respiratory: reduced air movement, expiratory wheeze, bronchial breath sounds, other (tachypnea w talking), No no rales or rhonchi, No clear to auscultation Skin: warm, other (face is flushed) Musculoskeletal: generalized weakness Neurologic: AAOx3 Psychiatric: thought process linear, anxious ICD10 Worksheet Patient Problems: Problems Problem Status Onset COPD exacerbation Acute RANDAL (acute kidney injury) Acute Acute bronchitis Acute Alcohol intoxication Acute Alcohol withdrawal Acute Alcoholic intoxication without complication Acute Alcoholism Acute Anxiety Acute Bilateral ankle pain Acute Bilateral knee pain Acute Blood bacterial culture positive Acute Bronchitis Acute Chest pain Acute Chronic alcoholism Acute Chronic obstructive pulmonary disease with acute exacerbation Acute Diarrhea Acute Elevated bilirubin Acute Gravely disabled Acute Hand edema Acute Homicidal thoughts Acute Hypertension Acute Hypokalemia Acute Hyponatremia Acute Lactic acidosis Acute Leg edema Acute Leukocytosis Acute Leukocytosis Acute Malingering Acute Nausea vomiting and diarrhea Acute Pneumonia Acute Pneumonia Acute Schizoaffective disorder, bipolar type Acute Verbalizes suicidal thoughts Acute
[2018-11-07] MEDS: predniSONE 20 MG TAB PO SCH (09:48)
[2018-11-07] MEDS: AZITHROMYCIN 250 MG TAB PO SCH (09:48)
[2018-11-07] MEDS: amLODIPine BESYLATE 5 MG TAB PO SCH (09:48)
[2018-11-07] MEDS: SENNOSIDES/DOCUSATE SODIUM TAB PO SCH ×2 (09:48→20:24)
[2018-11-07] MEDS: ENOXAPARIN 40 MG/0.4 ML SYR SC SCH (09:49)
[2018-11-07] MEDS: FLUTICASONE NASAL 120 SPRAYS/16 GM MDI EACHNARE SCH (09:49)
[2018-11-07] MEDS: IBUPROFEN 200 MG TAB PO PRN (09:57)
[2018-11-07] MEDS: NICOTINE 14 MG/24 HR PATCH TD PRN (12:41)
[2018-11-08] MEDS: ACETAMINOPHEN 325 MG TAB PO PRN ×3 (04:34→21:44)
[2018-11-08] MEDS: IBUPROFEN 200 MG TAB PO PRN ×2 (07:51→16:02)
[2018-11-08] MEDS: amLODIPine BESYLATE 5 MG TAB PO SCH (07:52)
[2018-11-08] MEDS: predniSONE 20 MG TAB PO SCH (07:53)
[2018-11-08] MEDS: hydrALAZINE 10 MG TAB PO PRN ×2 (07:54→11:27)
[2018-11-08] MEDS: AZITHROMYCIN 250 MG TAB PO SCH (07:55)
[2018-11-08] MEDS: ENOXAPARIN 40 MG/0.4 ML SYR SC SCH (07:55)
[2018-11-08] MEDS: BUDESONIDE 0.5 MG/2 ML AMPUL.NEB IH SCH ×2 (09:27→20:22)
[2018-11-08] MEDS: IPRATROPIUM/ALBUTEROL 3 ML DEYVIAL IH SCH ×3 (09:27→20:22)
[2018-11-08] MEDS: SENNOSIDES/DOCUSATE SODIUM TAB PO SCH ×2 (09:31→22:13)
[2018-11-08] MEDS: FLUTICASONE NASAL 120 SPRAYS/16 GM MDI EACHNARE SCH (09:46)
--- NOTE | 2018-11-08 10:05 | HOSPPROG ---
Hospitalist Progress Note Assessment/Plan: 63-year-old gentleman with past medical history significant for schizoaffective disorder, anxiety, alcohol dependence recently in remission, HCV, chronic back pain with history cervical spine stenosis, HTN, COPD and continued tobacco abuse. *COPD exacerbation (Acute) -steroids and azithro -PCR notes Human rhinovirus and enterovirus -on room air -personally reviewed chest xray, no infiltrate *hypoxemia -much improved, but cont to have sig rhonchi and wheezing *homelessness -will ask CM to reserve a bed for him tomorrow *HTN -bp elevated, increased Amlodipine dose *schizoaffective disorder -decreased prednisone dose due to agitation *hx of alcohol dependence *nicotine dependence -cessation recommended -he is down to one pack a day, use to smoke 3 packs -added prn Nicorette gum *plan: dc tomorrow to [facility]. Subjective: Liborio is starting to feel better today. Objective: Vital Signs Temp Pulse Resp BP Pulse Ox 36.7 C 89 18 178/118 H 91 L 11/08/18 07:34 11/08/18 09:29 11/08/18 09:29 11/08/18 07:34 11/08/18 09:29 11/07/18 11/08/18 11/09/18 05:59 05:59 05:59 Intake Total 1196 Output Total 1425 Balance -1425 1196 - Physical Exam Constitutional: no apparent distress, appears nourished Eyes: PERRL Ears, Nose, Mouth, Throat: hearing normal Cardiovascular: regular rate and rhythym Respiratory: no respiratory distress, expiratory wheeze (left lower lobe, rhonchii scattered throughout both lungs), bronchial breath sounds Gastrointestinal: soft, non-tender abdomen Skin: warm Musculoskeletal: full muscle strength Neurologic: AAOx3 ICD10 Worksheet Patient Problems: Problems Problem Status Onset COPD exacerbation Acute RANDAL (acute kidney injury) Acute Acute bronchitis Acute Alcohol intoxication Acute Alcohol withdrawal Acute Alcoholic intoxication without complication Acute Alcoholism Acute Anxiety Acute Bilateral ankle pain Acute Bilateral knee pain Acute Blood bacterial culture positive Acute Bronchitis Acute Chest pain Acute Chronic alcoholism Acute Chronic obstructive pulmonary disease with acute exacerbation Acute Diarrhea Acute Elevated bilirubin Acute Gravely disabled Acute Hand edema Acute Homicidal thoughts Acute Hypertension Acute Hypokalemia Acute Hyponatremia Acute Lactic acidosis Acute Leg edema Acute Leukocytosis Acute Leukocytosis Acute Malingering Acute Nausea vomiting and diarrhea Acute Pneumonia Acute Pneumonia Acute Schizoaffective disorder, bipolar type Acute Verbalizes suicidal thoughts Acute
[2018-11-08] MEDS: NICOTINE POLACRILEX 2 MG GUM B PRN ×3 (10:24→14:11)
[2018-11-08] MEDS: NICOTINE 14 MG/24 HR PATCH TD PRN (10:26)
[2018-11-08] MEDS: guaiFENesin 600 MG TAB.ER PO SCH ×2 (17:07→21:44)
[2018-11-08] MEDS: ALBUTEROL 3 ML DEYVIAL IH PRN (22:37)
[2018-11-09] MEDS: ACETAMINOPHEN 325 MG TAB PO PRN ×2 (03:57→08:20)
[2018-11-09] MEDS ORDERED: IBUPROFEN 200 MG TAB PO PRN (05:41)
[2018-11-09] MEDS: guaiFENesin 600 MG TAB.ER PO SCH ×2 (08:07→08:09)
[2018-11-09] MEDS: AZITHROMYCIN 250 MG TAB PO SCH (08:09)
[2018-11-09] MEDS: amLODIPine BESYLATE 5 MG TAB PO SCH (08:09)
[2018-11-09] MEDS: predniSONE 20 MG TAB PO SCH (08:10)
[2018-11-09] MEDS: ENOXAPARIN 40 MG/0.4 ML SYR SC SCH (08:10)
[2018-11-09] MEDS: FLUTICASONE NASAL 120 SPRAYS/16 GM MDI EACHNARE SCH (08:11)
[2018-11-09] MEDS: NICOTINE POLACRILEX 2 MG GUM B PRN ×2 (08:20→12:49)
[2018-11-09] MEDS: IPRATROPIUM/ALBUTEROL 3 ML DEYVIAL IH SCH ×2 (08:24→15:51)
[2018-11-09] MEDS: BUDESONIDE 0.5 MG/2 ML AMPUL.NEB IH SCH (08:24)
[2018-11-09] MEDS: SENNOSIDES/DOCUSATE SODIUM TAB PO SCH (09:55)
--- NOTE | 2018-11-09 11:19 | ASMTLACE ---
ANKUR Length of stay for Answers: 3 days current admission Acuity / Level of Answers: Yes Care: Did the patient have an inpatient admission? Comorbidities - select Answers: Chronic pulmonary disease all that apply Other Notes: HTN; Hep C # of Emergency department Answers: 5-8 visits in the last 6 months Social determinants Answers: History of substance abuse (ETOH, street drugs, prescription drugs, etc.) Homelessness (street, custodial) Mental health diagnosis (anxiety, depression, pers onality disorders, etc.) Score: 22 Date Signed: 11/09/2018 11:19 AM Electronically Signed By:Maeve Jovel RN
--- NOTE | 2018-11-09 11:28 | ASMTCMCOM ---
CM Note CM Note Notes: Met with pt, he has a bed already reserved at the [facility]. CM called to verify and letter given to pt documenting his hospital stay. CM will provide cab voucher to return to snf. DC Plan: [facility] Date Signed: 11/09/2018 11:21 AM Electronically Signed By:Maeve Jovel RN
[2018-11-09] MEDS: NICOTINE 14 MG/24 HR PATCH TD PRN (12:49)
[2018-11-09 15:43] VITALS: BP 127/93
--- NOTE | 2018-11-09 16:07 | GDS ---
[f rep st] DISCHARGE SUMMARY DISCHARGE DIAGNOSES: 1. Chronic obstructive pulmonary disease exacerbation, acute. 2. Hypoxemia, acute. 3. Homelessness. 4. Hypertension. 5. Schizoaffective disorder. 6. History of alcohol dependence. 7. Nicotine dependence. PHYSICAL EXAM: GENERAL: The patient is alert. VITAL SIGNS: Afebrile at 37.1, pulse is 80, respira tory rate 16, blood pressure is 161/119. He is saturating 91% on room air. I have seen and evaluate d the patient on the day of discharge. HOSPITAL COURSE: The patient is a 63-year-old male who presented to the emergency room with complain ts of shortness of breath. He was evaluated and diagnosed with: 1. Acute COPD exacerbation. During this hospitalization, he was treated with steroids, as well as a zithromycin. He will continue with steroid taper in the outpatient setting. His PCR noted human rhi novirus and enterovirus. He is currently on room air and has been prescribed an inhaler at the time of disposition. 2. Acute hypoxemia. This has resolved in the setting of acute COPD exacerbation. 3. Homelessness. The patient has a bed at the assisted reserved for him. 4. Hypertension. The patient's home medication amlodipine has been increased. He does become hyper tensive after breathing treatments and with increased anxiety. He will follow up in the outpatient s etting regarding this. 5. Schizoaffective disorder. This is stable. 6. Nicotine dependence. Cessation has been recommended. DISPOSITION: The patient will be discharged to a assisted. I have discussed the patient's dispositio n with the bottle caser, as well as the patient. They are both in agreement with the plan. I spent greater than 35 minutes in the care, coordination and management of this patient's disposition. DISCHARGE MEDICATIONS: Please see EMR form. I have provided prescriptions for Norvasc, Medrol Dosep ak, Proventil. FOLLOWUP: Followup will be at [facility]. /[id number]/MODL
== END 2018-11-09 16:45 | disposition home or self-care (01) | DRG 140 ==
LOC: EDUNIT# → F3N 07:27 → OBSVTOIN 11-06 14:23 → F3E 11-07 10:39
PROVIDERS: ADMIT Family Medicine; ATTEND Internal Medicine
DX: J44.1 Chronic obstructive pulmonary disease with (acute) exacerbation (principal); F25.9 Schizoaffective disorder, unspecified; R09.02 Hypoxemia; I10 Essential (primary) hypertension; F17.200 Nicotine dependence, unspecified, uncomplicated; F10.21 Alcohol dependence, in remission; B19.20 Unspecified viral hepatitis C without hepatic coma; Z59.0 Homelessness
CPT/HCPCS: 84484-ER; 96374; 97165-GO; G0378; G0480; J1650; J2930; J7512; J7613; J7626

== ENCOUNTER 2018-11-21 03:27 | Inpatient (IN) | payer MEDICAID ==
[2018-11-21] MEDS ORDERED: methylPREDNISolone SOD SUCC 125 MG/2 ML VIAL ONE (03:34)
[2018-11-21] MEDS ORDERED: IPRATROPIUM/ALBUTEROL 3 ML DEYVIAL ONE ×2 (03:34→06:00)
--- NOTE | 2018-11-21 03:38 | EDPHY ---
H & P Time Seen by Provider: 11/21/18 03:30 HPI/ROS: Chief Complaint: Difficulty breathing HPI: 63-year-old male with a history of COPD, schizoaffective disorder, nicotine and alcohol dependence who is presenting complaining of worsening shortness of breath. Patient was recently admitted on the 4th of this month with a COPD exacerbation was positive for rhino virus. Patient states that he is continuing cough of greenish brownish mucus. He has been using his inhalers more than prescribed. He has continued to have shortness of breath and cough. Some subjective fevers and chills and general malaise. Also complaining of some body aches. No nausea or vomiting. No substernal chest pain. He has been weaning off the cigarettes is down to 8 cigarettes a day. ROS: 10 systems were reviewed and were negative except those elements noted in the HPI. PMH: COPD, schizoaffective disorder Social History: Positive smoking, history of alcohol, history of homelessness and polysubstance abuse Family History: non-contributory Physical Exam: Gen: Awake, Alert, No Distress HEENT: Nose: no rhinorrhea Eyes: PERRLA, EOMI Mouth: Moist mucosa Neck: Supple, no JVD Chest: nontender, diffuse inspiratory and expiratory wheezing, no focal rales or rhonchi Heart: S1, S2 normal, no murmur Abd: Soft, non-tender, no guarding Back: no CVA tenderness, no midline tenderness Ext: no edema, non-tender Skin: no rash Neuro: CN II-XII intact, Sensation grossly intact, Strength 5/5 in bilateral upper and lower extremities - Personal History Tetanus Vaccine Date: < 10 YEARS - Medical/Surgical History Hx Asthma: Yes Hx Chronic Respiratory Disease: No Hx Diabetes: No Hx Cardiac Disease: Yes Hx Renal Disease: No Hx Cirrhosis: Yes Hx Alcoholism: Yes Hx HIV/AIDS: No Hx Splenectomy or Spleen Trauma: No Other PMH: MEDICAL- ANXIETY, LIVER DISEASE, ASCITES, IVDA, HEP C+, alcohol and drug abuse/MENTAL HEALTH, htn,cirrohsis, hx of 3 ruptured discs/back surgs/ tonsillectomy, - Social History Smoking Status: Heavy smoker Constitutional: Initial Vital Signs Temperature (C) 37.1 C 11/21/18 03:32 Heart Rate 116 H 11/21/18 03:32 Respiratory Rate 24 H 11/21/18 03:32 Blood Pressure 131/98 H 11/21/18 03:32 O2 Sat (%) 89 L 11/21/18 03:32 O2 Delivery Mode Nasal Cannula O2 (L/minute) 8 Allergies/Adverse Reactions: ketorolac [From Toradol] Allergy (Severe, Verified 11/21/18 03:31) Anaphylaxis levofloxacin [From Levaquin] Allergy (Severe, Verified 11/21/18 03:31) tendinopathy lisinopril Allergy (Severe, Verified 11/21/18 03:31) Anaphylaxis Home Medications: Medication Instructions Recorded Ibuprofen [Motrin (*)] 200 mg PO DAILY PRN 11/05/18 Acetaminophen [Tylenol 325mg (*)] 650 mg PO Q4HRS PRN tab 11/09/18 Albuterol [Proventil Inhaler HFA 1 - 2 puffs IH Q4H #1 mdi 11/09/18 (*)] Fluticasone Nasal [Flonase Nasal 1 sprays EACHNARE DAILY mdi 11/09/18 [place]] Nicotine Polacrilex [Nicorette gum 2 mg B PRN PRN gum 11/09/18 (*)] Sennosides/Docusate Sodium 1 - 2 tab PO BID tab 11/09/18 [Senokot-S] amLODIPine BESYLATE [Norvasc 5 mg 7.5 mg PO DAILY #60 tab 11/09/18 (*)] guaiFENesin [Mucinex 600 MG (*)] 600 mg PO BID tab.er 11/09/18 methylPREDNISolone [Medrol Dose 1 each PO AD #1 ea 11/09/18 [place]] Medical Decision Making Procedures: Procedure: Ultrasound guidance for IV placement. Indication: The nurse requested that I place an intravenous catheter because of technical difficulties with this procedure on this patient. Procedure in details: Using the linear probe covered in a sterile sheath, a short axis of the left basilic vein was obtained. This vein was completely compressible and was identified as separate from the adjacent noncompressible arterial structure. Under real-time guidance, the intravenous needle was observed to tent the vein and then to puncture it. Insertion of intravenous catheter: I prepped the patient's skin with chlorhexidine. I placed an 18 gauge intravenous catheter in the visualized vein. ED Course/Re-evaluation: 63-year-old male presenting with COPD exacerbation. He has received steroids. He is read CV DuoNeb x2 an albuterol neb. He is still satting 88% on 4 L nasal cannula. I discussed with Dr. Velazquez, hospitalist. She will admit to her service for further care. Patient was recently admitted parotid [facility] for weeks ago. I am awaiting the influenza test results now. Chest x-ray shows some increased haziness in the right and left base. - Data Points Laboratory Results: Laboratory Results 11/21/18 03:40 11/21/18 03:40 11/21/18 11/21/18 03:40 03:40 WBC 10.34 10^3/uL H 10^3/uL (3.80-9.50) RBC 5.04 10^6/uL 10^6/uL (4.40-6.38) Hgb 15.0 g/dL g/dL (13.7-17.5) Hct 45.0 % % (40.0-51.0) MCV 89.3 fL fL (81.5-99.8) MCH 29.8 pg pg (27.9-34.1) MCHC 33.3 g/dL g/dL (32.4-36.7) RDW 14.4 % % (11.5-15.2) Plt Count 333 10^3/uL 10^3/uL (150-400) MPV 9.9 fL fL (8.7-11.7) Neut % (Auto) 68.4 % % (39.3-74.2) Lymph % (Auto) 14.8 % L % (15.0-45.0) [place] % (Auto) 15.9 % H % (4.5-13.0) Eos % (Auto) 0.3 % L % (0.6-7.6) Baso % (Auto) 0.4 % % (0.3-1.7) Nucleat RBC Rel Count 0.0 % % (0.0-0.2) Absolute Neuts (auto) 7.07 10^3/uL H 10^3/uL (1.70-6.50) Absolute Lymphs (auto) 1.53 10^3/uL 10^3/uL (1.00-3.00) Absolute Monos (auto) 1.64 10^3/uL H 10^3/uL (0.30-0.80) Absolute Eos (auto) 0.03 10^3/uL 10^3/uL (0.03-0.40) Absolute Basos (auto) 0.04 10^3/uL 10^3/uL (0.02-0.10) Absolute Nucleated RBC 0.00 10^3/uL 10^3/uL (0-0.01) Immature Gran % 0.2 % % (0.0-1.1) Immature Gran # 0.02 10^3/uL 10^3/uL (0.00-0.10) RBC/WBC/PLT Morphology TNP Platelet Estimate TNP Sodium 138 mEq/L mEq/L (135-145) Potassium 4.2 mEq/L mEq/L (3.5-5.2) Chloride 107 mEq/L mEq/L (97-110) Carbon Dioxide 23 mEq/l mEq/l (22-31) Anion Gap 8 mEq/L mEq/L (6-14) BUN 13 mg/dL mg/dL (7-23) Creatinine 0.6 mg/dL L mg/dL (0.7-1.3) Estimated GFR > 60 Glucose 105 mg/dL H mg/dL (70-100) Calcium 9.0 mg/dL mg/dL (8.5-10.4) Medications Given: Discontinued Medications Albuterol/Ipratropium (Duoneb) 3 ml IH EDNOW ONE Stop: 11/21/18 03:42 Last Admin: 11/21/18 03:43 Dose: 3 ml Albuterol/Ipratropium (Duoneb) 3 ml IH EDNOW ONE Stop: 11/21/18 03:56 Last Admin: 11/21/18 03:56 Dose: 3 ml Methylprednisolone Sodium Succinate (Solu-Medrol) 125 mg IVP EDNOW ONE Stop: 11/21/18 03:42 Last Admin: 11/21/18 03:43 Dose: 125 mg Departure - Departure Disposition: [facility] Inpatient Acute Clinical Impression: Chronic obstructive pulmonary disease with acute exacerbation Condition: Fair Referrals: NONE *PRIMARY CARE P,. [Primary Care Provider] - As per Instructions
[2018-11-21] MEDS ORDERED: IPRATROPIUM/ALBUTEROL 3 ML DEYVIAL IH ONE ×2 (03:41→03:55)
[2018-11-21] MEDS ORDERED: methylPREDNISolone SOD SUCC 125 MG/2 ML VIAL IVP ONE (03:41)
[2018-11-21 04:03] LABS: PLATELET COUNT 333 10^3/uL (150-400)
[2018-11-21] MEDS ORDERED: ONDANSETRON DISINTEGRATING 4 MG TAB PO PRN (05:52)
[2018-11-21] MEDS ORDERED: ONDANSETRON 4 MG/2 ML VIAL IVP PRN (05:52)
[2018-11-21] MEDS ORDERED: NS 1,000 ML IV SCH (06:00)
[2018-11-21] MEDS ORDERED: predniSONE 20 MG TAB ONE (06:00)
[2018-11-21] MEDS ORDERED: ACETAMINOPHEN 325 MG TAB ONE (06:01)
[2018-11-21] MEDS: ACETAMINOPHEN 325 MG TAB PO PRN ×2 (06:03→20:33)
[2018-11-21] MEDS: IPRATROPIUM/ALBUTEROL 3 ML DEYVIAL IH SCH ×4 (06:03→20:45)
--- NOTE | 2018-11-21 07:25 | GHP ---
[f rep st] HISTORY AND PHYSICAL PRIMARY CARE PHYSICIAN: None. CHIEF COMPLAINT: Shortness of breath and cough. HISTORY OF PRESENT ILLNESS: This is a 63-year-old gentleman with past medical history significant for schizoaffective disorder, anxiety, COPD, tobacco dependence, known to our service, who presents to the emergency department today with complaints of progressive shortness of breath, productive cough of white sputum, subjective fevers and chills. The patient was admitted on 2017, discharged 11/09/2018, with COPD exacerbation and rhinovirus. He was discharged and reports that he continued to have a significant cough. He is staying at the nursing home. Recently developed subjective fevers, chills, and progressively worsening body aches which is the worst symptom he reports. He has not had any nausea, vomiting, or diarrhea. He reports that he has been able to tolerate oral hydration and p.o. intake during this time. REVIEW OF SYSTEMS: Ten systems reviewed, negative except as noted above. ALLERGIES: To Toradol, Levaquin, and lisinopril. PAST MEDICAL HISTORY: Significant for schizoaffective disorder, anxiety, EtOH in remission, COPD, hypertension, chronic back pain, hyperlipidemia, HCV, cervical spinal stenosis, BPH. HOME MEDICATIONS: As available per EMR, not yet reviewed by Pharmacy. Medrol Dosepak, Mucinex, amlodipine, Senokot, nicotine gum, ibuprofen, Flonase, albuterol, Tylenol. PAST SURGICAL HISTORY: Significant for colonoscopy with history of polyps, laminectomy, tonsillectomy, adenoidectomy. FAMILY HISTORY: Father's family had history of colon cancer. SOCIAL HISTORY: The patient is homeless. He is residing at the nursing home currently. He currently continues to smoke, but he has cut down to 8 cigarettes per day and plans to quit shortly once he receives his Quitline patches. He has a nearly 40 pack-year history. He denies any current illicit drugs, although he has a previous history and he quit smoking shortly before his last hospital stay. CODE STATUS: Full. PHYSICAL EXAMINATION: VITAL SIGNS: Upon arrival to the emergency department, blood pressure 131/98, heart rate is 116, respiratory rate 24, O2 saturation is 89% on room air with temperature 37.1. Currently available vitals: Blood pressure is 141/81, heart rate 105, respiratory rate 22, O2 saturation 93% on 5 L by nasal cannula. GENERAL: No acute distress. Patient is resting quietly on his side on the gurney, trying to sleep. He wakes easily to name. Appears chronically ill. He is morbidly obese. HEAD: Normocephalic, atraumatic. EYES : Extraocular muscles are grossly intact. Pupils equal, round, with decreased reactivity to light bilaterally but symmetric. No scleral icterus or conjunctival injection. ENT: Mucous membranes appear dry. No oropharyngeal erythema or exudates. No nasal discharge. NECK: Supple. Trachea midline neck. CV: Regular rate and rhythm. Tachycardic to the low 100s. Regular. Limited exam due to tachycardia otherwise. RESPIRATORY: Patient with diffuse wheezing in all lung arreguin. He is diminished in the right base with rhonchi scattered throughout. No acute respiratory distress. ABDOMEN: Obese, soft, nontender to palpation. No rebound, guarding, or masses appreciated. Positive bowel sounds. : No suprapubic tenderness to palpation. No Gaines catheter in place. MUSCULOSKELETAL: Patient is complaining of diffuse myalgias. He is able to move all extremities with some generalized weakness. He is able to roll on his side. NEURO: Grossly nonfocal. No facial drooping. Moves all extremities as noted above. PSYCH: Patient is anxious, but he is pleasant and cooperative. Thought process, content, and questions are currently appropriate. No SI or HI. LABORATORY STUDIES: WBC is 10.34, H and H are 15.0 and 45.0, MCV 89.3, platelet count is 333, no bands. Sodium is 138, potassium 4.2, chloride is 107, CO2 is 23, anion gap of 8, BUN is 13, creatinine 0.6, GFR greater than 60, glucose is 105, calcium is 9.0. Patient's bedside telemetry reviewed myself shows sinus tach in the 90s. Chest x-ray: Image was reviewed myself. Report is still pending showing right- sided infiltrate with peribronchiolar cuffing. ASSESSMENT AND PLAN: 63-year-old gentleman with past medical history significant for chronic obstructive pulmonary disease, tobacco dependence, schizoaffective disorder, anxiety, BPH, hypertension, hyperlipidemia, presents to the emergency department with complaints of acute on chronic coughing, dyspnea, subjective fevers, chills, and myalgias. 1. Patient with a history of rhinovirus. Flu PCR and respiratory PCR are pending. He has likely increased risk for exposures for flu A and his symptoms consistent with this. We will await flu PCR before initiating Tamiflu. Will provide antibiotic coverage with cefdinir. Patient is without an IV after 7 attempts that were unsuccessful, but he is able to tolerate an orally hydrate at this time and so we will utilize this avenue. We will transition patient from IV to p.o. steroids as well as nebulizer treatments. Of note, patient was discharged with azithromycin and a steroid taper on 11/09/2018. 2. Acute hypoxic respiratory failure. Patient remains tachypneic, tachycardic and is requiring 5 L per oxygen to maintain saturations greater than 89%. Continue to titrate down to maintain O2 sats 90 or greater. 3. Benign essential hypertension. Continue patient's amlodipine when med rec is available. 4. Tobacco dependence. Patient is in process of trying to quit. Nicotine patch has been ordered. 5. Schizoaffective disorder and anxiety. Continue Ativan p.r.n. Monitor for any signs of decreased respiratory drive with this. 6. Fluids, electrolyte and nutrition. Tolerating oral hydration. Encouraged diet as tolerated. 7. Prophylaxis: SCDs. Lovenox anticipated and the patient should require additional hospital stay. We will encourage early mobilization. CODE STATUS: Full. DISPOSITION: Patient admitted to observation status, currently on the med surg floor, pending response to above treatments and also respiratory panel. /[id number]/MODL MTDD
[2018-11-21] MEDS: NICOTINE 21 MG/24 HR PATCH TD SCH ×2 (07:51→09:36)
[2018-11-21] MEDS ORDERED: CEFDINIR 300 MG CAP PO SCH (09:00)
[2018-11-21] MEDS ORDERED: IBUPROFEN 600 MG TAB PO ONE ×2 (09:21→09:24)
--- NOTE | 2018-11-21 10:08 | ASMTCMCOM ---
CM Note CM Note Notes: Patient is welll known to this CM and the ED. He was recently discharged on 11/09 from an IP visit. Chart reviewed. Patient currently being readmitted with Influenza. Patient informs this CM that he has an apartment in [facility] which he will be moving into on November 30. He reports that he had been in [place] over the summer and returned to [place] for health care issues because he was stil active with [place] Medicaid. Patient states that he will be applying for Medicaid in [place] upon his return and that he will be flying back to [place] as soon as he is well enough to do so. This CM has spoken with Rica at [facility] and confirmed that patient does have an appointment scheduled this November 23 at 2:[address] Gurrola. CM to follow and communicate with [facility] prn regarding patient's discharge and appointment on Monday Date Signed: 11/21/2018 10:07 AM Electronically Signed By:Mily Chau RN
[2018-11-21] MEDS: predniSONE 20 MG TAB PO SCH ×2 (10:56→17:33)
[2018-11-21] MEDS: CEFDINIR 300 MG CAP PO SCH ×2 (10:57→20:33)
[2018-11-21] MEDS: ENOXAPARIN 40 MG/0.4 ML SYR SC SCH (10:58)
[2018-11-21] MEDS ORDERED: ACETAMINOPHEN 325 MG TAB PO PRN (11:56)
[2018-11-21] MEDS: IBUPROFEN 600 MG TAB PO PRN ×2 (14:45→22:50)
[2018-11-21] MEDS: BENZONATATE 100 MG CAP PO PRN ×2 (16:46→22:49)
[2018-11-22] MEDS: ALBUTEROL 3 ML DEYVIAL IH PRN (01:00)
[2018-11-22] MEDS: ACETAMINOPHEN 325 MG TAB PO PRN ×3 (03:26→12:56)
[2018-11-22] MEDS: NICOTINE POLACRILEX 2 MG GUM B PRN ×4 (03:27→15:32)
[2018-11-22] MEDS: IPRATROPIUM/ALBUTEROL 3 ML DEYVIAL IH SCH ×4 (05:42→19:44)
[2018-11-22] MEDS: IBUPROFEN 600 MG TAB PO PRN ×2 (08:24→23:54)
[2018-11-22] MEDS: CEFDINIR 300 MG CAP PO SCH ×2 (08:24→20:01)
[2018-11-22] MEDS: amLODIPine BESYLATE 5 MG TAB PO SCH (08:25)
[2018-11-22] MEDS: BENZONATATE 100 MG CAP PO PRN ×3 (08:25→23:55)
[2018-11-22] MEDS: predniSONE 20 MG TAB PO SCH ×2 (08:25→17:04)
[2018-11-22] MEDS: NICOTINE 21 MG/24 HR PATCH TD SCH (08:26)
[2018-11-22] MEDS: ENOXAPARIN 40 MG/0.4 ML SYR SC SCH (08:52)
[2018-11-22] MEDS: FLUTICASONE NASAL 120 SPRAYS/16 GM MDI EACHNARE SCH (08:58)
[2018-11-22] MEDS: guaiFENesin/CODEINE PHOS 10 ML UDCUP PO PRN ×2 (10:14→19:46)
[2018-11-22] MEDS: oxyCODONE IR 5 MG TAB PO PRN ×3 (10:14→19:46)
--- NOTE | 2018-11-22 10:49 | ASMTCMCOM ---
CM Note CM Note Notes: Met with pt, he is admitted for the flu. He was recently here with pneumonia. [facility], is in the work program there, and stays at the [facility] during the day. Due to comprimised immune system and staying at the [facility] has made it difficult to recover. Pt states that November 30 he is returning to [place]. He also has an appointment at the [facility] on Monday, CM attempted to reschedule but appointments with PCP are tight, they are sending PCP a message to see if she can squeeze him in early next week. Dc date uncertain, DORIE w/f. DC Plan: TBD Date Signed: 11/22/2018 10:48 AM Electronically Signed By:Maeve Jovel RN
[2018-11-22] MEDS: HYDROCODONE/APAP 5/325 TAB PO PRN ×2 (12:56→17:03)
--- NOTE | 2018-11-22 14:20 | HOSPPROG ---
Hospitalist Progress Note Assessment/Plan: 63y male with c/o SOB and feeling terrible. First encounter, chart reviewed. #Parainfluenza virus type 3 -supportive care -pain meds, cough meds #Cough -meds #Acute hypoxemic resp failure -cont O2 -steroid therapy #Tachycardia -cont IVF -Tele #HTN -cont meds #Tobacco Dep -gum -cessation education #Schizoaffective/anxiety -supportive care #Dispo -unclear -needs cont support in hospital -D/W CM Subjective: Feels terrible. Body aches, SOB, cough. Didn't sleep. Objective: Vital Signs Temp Pulse Resp BP Pulse Ox 36.7 C 100 24 H 120/72 91 L 11/22/18 11:23 11/22/18 11:32 11/22/18 11:32 11/22/18 11:23 11/22/18 11:32 Microbiology 11/21/18 05:30 Respiratory Panel (PCR) - Final Nasal, Sinus - Swab Parainfluenza Virus Type 3 11/21/18 11/22/18 11/23/18 05:59 05:59 05:59 Intake Total 100 Output Total 500 Balance -400 - Physical Exam Constitutional: appears nourished, chronically ill appearing, uncomfortable Eyes: PERRL, anicteric sclera, EOMI Ears, Nose, Mouth, Throat: moist mucous membranes, hearing normal, ears appear normal Cardiovascular: tachycardia, No JVD, No edema Respiratory: no respiratory distress, no rales or rhonchi, reduced air movement Gastrointestinal: normoactive bowel sounds, No tenderness, No ascites Skin: warm, normal color, No mottled Musculoskeletal: normal joint ROM, no joint effusions, generalized weakness Neurologic: AAOx3 Psychiatric: interacting appropriately, not anxious, not encephalopathic ICD10 Worksheet Patient Problems: Problems Problem Status Onset Schizoaffective disorder, bipolar type Acute Anxiety Acute RANDAL (acute kidney injury) Acute Nausea vomiting and diarrhea Acute Alcoholism Acute Hyponatremia Acute Leukocytosis Acute Elevated bilirubin Acute Hypokalemia Acute Lactic acidosis Acute Alcohol intoxication Acute Leg edema Acute Hand edema Acute Pneumonia Acute Chronic obstructive pulmonary disease with acute exacerbation Acute Pneumonia Acute Leukocytosis Acute Diarrhea Acute Bilateral knee pain Acute Bilateral ankle pain Acute Chronic alcoholism Acute Gravely disabled Acute Alcohol withdrawal Acute Bronchitis Acute Blood bacterial culture positive Acute Chest pain Acute Acute bronchitis Acute Hypertension Acute Alcoholic intoxication without complication Acute Verbalizes suicidal thoughts Acute Homicidal thoughts Acute Malingering Acute COPD exacerbation Acute
--- NOTE | 2018-11-22 16:03 | ASMTCMCOM ---
CM Note CM Note Notes: Recieved call from [facility], they were able to reschedule pt's appointment to MondayNovember 28 at 11:25, pt notified. DC Plan: TBD Date Signed: 11/22/2018 03:59 PM Electronically Signed By:Maeve Jovel RN
[2018-11-22] MEDS ORDERED: OSELTAMIVIR PHOSPHATE 75 MG CAP PO SCH (18:00)
[2018-11-23] MEDS: ALBUTEROL 3 ML DEYVIAL IH PRN (01:16)
[2018-11-23] MEDS: IPRATROPIUM/ALBUTEROL 3 ML DEYVIAL IH SCH ×4 (05:50→21:12)
[2018-11-23] MEDS: oxyCODONE IR 5 MG TAB PO PRN ×4 (06:04→21:20)
[2018-11-23] MEDS: ENOXAPARIN 40 MG/0.4 ML SYR SC SCH (08:01)
[2018-11-23] MEDS: predniSONE 20 MG TAB PO SCH ×2 (08:02→16:59)
[2018-11-23] MEDS: guaiFENesin/CODEINE PHOS 10 ML UDCUP PO PRN (08:02)
[2018-11-23] MEDS: amLODIPine BESYLATE 5 MG TAB PO SCH (08:02)
[2018-11-23] MEDS: CEFDINIR 300 MG CAP PO SCH ×2 (08:02→21:19)
[2018-11-23] MEDS: NICOTINE 21 MG/24 HR PATCH TD SCH (08:02)
[2018-11-23] MEDS: FLUTICASONE NASAL 120 SPRAYS/16 GM MDI EACHNARE SCH (08:03)
[2018-11-23] MEDS: NICOTINE POLACRILEX 2 MG GUM B PRN ×3 (08:10→21:23)
[2018-11-23] MEDS: LORazepam 1 MG TAB PO PRN ×3 (09:01→21:20)
--- NOTE | 2018-11-23 09:31 | PDMN ---
Medical Necessity Medical necessity: Change to IP, as of 11/22/18, per FIELD RECORDER & MCG PG-RF Respiratory Failure; los >2 mn for ongoing management of acute hypoxemic respiratory failure w/parainfluenza virus type 3, tachycardia & cough; requiring further monitoring, supportive care & IVFs; hx recent hospitalization for COPD exacerbation & rhinovirus, homeless
[2018-11-23] MEDS: BENZONATATE 100 MG CAP PO PRN ×3 (10:26→21:19)
[2018-11-23] MEDS: IBUPROFEN 600 MG TAB PO PRN (10:31)
--- NOTE | 2018-11-23 14:23 | HOSPPROG ---
Hospitalist Progress Note Assessment/Plan: 63y male with c/o SOB and feeling terrible. #Parainfluenza virus type 3 -supportive care -pain meds, cough meds #Cough -meds #Acute hypoxemic resp failure -cont O2 -steroid therapy #Tachycardia -cont IVF -Tele #HTN -cont meds #Tobacco Dep -gum -cessation education #Schizoaffective/anxiety -supportive care -added ativan -pt knows he will not receive prescriptions at the time of DC -HX of substance abuse #Dispo -unclear -needs cont support in hospital -D/W CM Subjective: Still feels terrible. Still having body aches. Objective: Vital Signs Temp Pulse Resp BP Pulse Ox 36.6 C 91 20 145/101 H 92 11/23/18 12:00 11/23/18 12:00 11/23/18 12:00 11/23/18 12:00 11/23/18 12:00 11/22/18 11/23/18 11/24/18 05:59 05:59 05:59 Intake Total 1644 750 Output Total 1300 700 Balance 344 50 - Physical Exam Constitutional: chronically ill appearing, obese Eyes: PERRL, anicteric sclera Ears, Nose, Mouth, Throat: moist mucous membranes, hearing normal Cardiovascular: No JVD, No edema Respiratory: no respiratory distress, reduced air movement Gastrointestinal: No tenderness, No ascites Skin: warm, normal color Musculoskeletal: no joint effusions, generalized weakness Neurologic: AAOx3 Psychiatric: interacting appropriately, not encephalopathic, anxious ICD10 Worksheet Patient Problems: Problems Problem Status Onset Schizoaffective disorder, bipolar type Acute Anxiety Acute RANDAL (acute kidney injury) Acute Nausea vomiting and diarrhea Acute Alcoholism Acute Hyponatremia Acute Leukocytosis Acute Elevated bilirubin Acute Hypokalemia Acute Lactic acidosis Acute Alcohol intoxication Acute Leg edema Acute Hand edema Acute Pneumonia Acute Chronic obstructive pulmonary disease with acute exacerbation Acute Pneumonia Acute Leukocytosis Acute Diarrhea Acute Bilateral knee pain Acute Bilateral ankle pain Acute Chronic alcoholism Acute Gravely disabled Acute Alcohol withdrawal Acute Bronchitis Acute Blood bacterial culture positive Acute Chest pain Acute Acute bronchitis Acute Hypertension Acute Alcoholic intoxication without complication Acute Verbalizes suicidal thoughts Acute Homicidal thoughts Acute Malingering Acute COPD exacerbation Acute
[2018-11-24] MEDS: ALBUTEROL 3 ML DEYVIAL IH PRN (01:09)
[2018-11-24] MEDS: oxyCODONE IR 5 MG TAB PO PRN ×4 (01:36→20:47)
[2018-11-24] MEDS: BENZONATATE 100 MG CAP PO PRN ×3 (01:36→17:46)
[2018-11-24] MEDS ORDERED: LORazepam 1 MG TAB PO ONE (01:43)
[2018-11-24] MEDS: IPRATROPIUM/ALBUTEROL 3 ML DEYVIAL IH SCH ×4 (04:12→21:24)
[2018-11-24] MEDS: NICOTINE POLACRILEX 2 MG GUM B PRN ×4 (07:16→18:43)
[2018-11-24] MEDS: FLUTICASONE NASAL 120 SPRAYS/16 GM MDI EACHNARE SCH (07:58)
[2018-11-24] MEDS: CEFDINIR 300 MG CAP PO SCH ×2 (07:59→20:47)
[2018-11-24] MEDS: amLODIPine BESYLATE 5 MG TAB PO SCH (07:59)
[2018-11-24] MEDS: NICOTINE 21 MG/24 HR PATCH TD SCH (07:59)
[2018-11-24] MEDS: ENOXAPARIN 40 MG/0.4 ML SYR SC SCH (07:59)
[2018-11-24] MEDS: predniSONE 20 MG TAB PO SCH ×2 (08:00→17:45)
[2018-11-24] MEDS: LORazepam 1 MG TAB PO PRN ×2 (10:00→17:47)
--- NOTE | 2018-11-24 11:07 | HOSPPROG ---
Hospitalist Progress Note Assessment/Plan: 63y male with c/o SOB, admitted with acute bronchitis / viral URI #Parainfluenza virus type 3 -supportive care, nebs, anti-tussives -cont prednisone (still on 60 mg bid, will continue given degree of wheezing, may warrant taper) #Acute hypoxemic resp failure - 2/2 above, 4 LPM --> 2 LPM Admission CXR pers reviewed: COPD changes with philippe-bronchial thickening -given worsening symptoms by pt report, will repeat CXR -PCT low risk, can probably d/c atbx if CXR reassuring #HTN -cont meds #Tobacco Dep -gum -cessation education #Schizoaffective/anxiety - h/o substance abuse noted -supportive care -wean ativan #Dispo - cont inpt for ongoing hypoxemia with O2 requirement, currently staying at homeless skilled nursing so can't dc with O2, CM following Subjective: Pt says he feels worse. Still coughing, wheezing, SOB. Feels a puffy. No fevers. Objective: Vital Signs Temp Pulse Resp BP Pulse Ox 36.6 C 75 18 155/97 H 91 L 11/24/18 07:45 11/24/18 07:45 11/24/18 07:45 11/24/18 07:59 11/24/18 07:45 11/23/18 11/24/18 11/25/18 05:59 05:59 05:59 Intake Total 1644 1150 Output Total 1300 1100 Balance 344 50 - Physical Exam Constitutional: no apparent distress Eyes: PERRL Ears, Nose, Mouth, Throat: moist mucous membranes Cardiovascular: regular rate and rhythym Respiratory: no respiratory distress, reduced air movement, expiratory wheeze Gastrointestinal: normoactive bowel sounds, soft, non-tender abdomen Skin: warm Musculoskeletal: full muscle strength Neurologic: AAOx3 Psychiatric: interacting appropriately ICD10 Worksheet Patient Problems: Problems Problem Status Onset Chronic obstructive pulmonary disease with acute exacerbation Acute RANDAL (acute kidney injury) Acute Acute bronchitis Acute Alcohol intoxication Acute Alcohol withdrawal Acute Alcoholic intoxication without complication Acute Alcoholism Acute Anxiety Acute Bilateral ankle pain Acute Bilateral knee pain Acute Blood bacterial culture positive Acute Bronchitis Acute COPD exacerbation Acute Chest pain Acute Chronic alcoholism Acute Diarrhea Acute Elevated bilirubin Acute Gravely disabled Acute Hand edema Acute Homicidal thoughts Acute Hypertension Acute Hypokalemia Acute Hyponatremia Acute Lactic acidosis Acute Leg edema Acute Leukocytosis Acute Leukocytosis Acute Malingering Acute Nausea vomiting and diarrhea Acute Pneumonia Acute Pneumonia Acute Schizoaffective disorder, bipolar type Acute Verbalizes suicidal thoughts Acute
--- NOTE | 2018-11-24 11:52 | ASMTCMCOM ---
CM Note CM Note Notes: Pt feeling worsening of symptoms. He is homeless and may need O2, pt has a bed at the senior living but d/t his compromised immune system, seems to keep getting sick. CM senior finance manager has ok'd pt for 2 days respite at hotel when ready for dc. CM to call the [facility] when pt is medically stable for dc. Pt [facility] at 11:25, with Emely Sanchez. Please notify Rica at [facility] ([phone]) when pt discharges. DC Plan[facility] Date Signed: 11/24/2018 11:52 AM Electronically Signed By:Maeve Jovel RN
[2018-11-24] MEDS: HYDROCODONE/APAP 5/325 TAB PO PRN (16:38)
[2018-11-24] MEDS: guaiFENesin 600 MG TAB.ER PO SCH (22:04)
[2018-11-24] MEDS: GUAIFENESIN/DM 10 ML UDCUP PO PRN (22:04)
[2018-11-25] MEDS: oxyCODONE IR 5 MG TAB PO PRN ×4 (00:34→21:31)
[2018-11-25] MEDS: ALBUTEROL 3 ML DEYVIAL IH PRN (00:42)
[2018-11-25] MEDS: LORazepam 1 MG TAB PO PRN ×3 (01:32→17:29)
[2018-11-25] MEDS: NICOTINE POLACRILEX 2 MG GUM B PRN ×7 (01:33→21:32)
[2018-11-25] MEDS: IPRATROPIUM/ALBUTEROL 3 ML DEYVIAL IH SCH ×4 (04:54→21:19)
[2018-11-25] MEDS: GUAIFENESIN/DM 10 ML UDCUP PO PRN ×2 (06:26→21:32)
[2018-11-25] MEDS: amLODIPine BESYLATE 5 MG TAB PO SCH (07:36)
[2018-11-25] MEDS: guaiFENesin 600 MG TAB.ER PO SCH ×2 (07:37→21:32)
[2018-11-25] MEDS: NICOTINE 21 MG/24 HR PATCH TD SCH (07:38)
[2018-11-25] MEDS: predniSONE 20 MG TAB PO SCH (07:38)
[2018-11-25] MEDS: ENOXAPARIN 40 MG/0.4 ML SYR SC SCH (07:38)
[2018-11-25] MEDS: CEFDINIR 300 MG CAP PO SCH ×2 (07:38→21:31)
[2018-11-25] MEDS: FLUTICASONE NASAL 120 SPRAYS/16 GM MDI EACHNARE SCH (07:40)
[2018-11-25] MEDS: BENZONATATE 100 MG CAP PO PRN ×2 (09:53→17:29)
[2018-11-25] MEDS ORDERED: hydrALAZINE 20 MG/ML VIAL IVP PRN (10:35)
--- NOTE | 2018-11-25 10:39 | HOSPPROG ---
Hospitalist Progress Note Assessment/Plan: 63y male with c/o SOB, admitted with acute bronchitis / viral URI #Parainfluenza virus type 3 -supportive care, nebs, anti-tussives -cont prednisone, decrease to 60 mg once daily, will likely need taper at dc -guaifenesin added, which has been helpful #Acute hypoxemic resp failure - 2/2 above, 4 LPM --> 1.5 LPM Rpt CXR pers reviewed: COPD changes with philippe-bronchial thickening -pct low, no e/o bacterial PNA on CXR, will d/c atbx today #HTN - sub-optimal control -increase Norvasc to 10 mg daily -add prn hydralazine #Tachycardia - HR increased today 120s -check EKG -send d dimer, if elevated, will pursue CTA #Tobacco Dep -gum -cessation education #Schizoaffective/anxiety - h/o substance abuse noted -supportive care -wean ativan #DVT PPLX - Lovenox #Dispo - cont inpt for ongoing hypoxemia with O2 requirement, currently staying at homeless longterm so can't dc with O2, CM following, planning for respite at [facility] for a couple of days at dc Subjective: Pt still feels wheezy and SOB. C/O wet cough, more productive. No fevers. Taking po well. Objective: Vital Signs Temp Pulse Resp BP Pulse Ox 36.5 C 90 18 173/110 H 90 L 11/25/18 07:28 11/25/18 07:28 11/25/18 07:28 11/25/18 07:36 11/25/18 07:28 11/24/18 11/25/18 11/26/18 05:59 05:59 05:59 Intake Total 1150 3830 Output Total 1100 Balance 50 3830 - Physical Exam Constitutional: no apparent distress Eyes: PERRL Ears, Nose, Mouth, Throat: moist mucous membranes Cardiovascular: tachycardia Respiratory: no respiratory distress, reduced air movement, expiratory wheeze, inspiratory crackles Gastrointestinal: normoactive bowel sounds, soft, non-tender abdomen Skin: warm Musculoskeletal: full muscle strength Neurologic: AAOx3 Psychiatric: interacting appropriately ICD10 Worksheet Patient Problems: Problems Problem Status Onset Chronic obstructive pulmonary disease with acute exacerbation Acute RANDAL (acute kidney injury) Acute Acute bronchitis Acute Alcohol intoxication Acute Alcohol withdrawal Acute Alcoholic intoxication without complication Acute Alcoholism Acute Anxiety Acute Bilateral ankle pain Acute Bilateral knee pain Acute Blood bacterial culture positive Acute Bronchitis Acute COPD exacerbation Acute Chest pain Acute Chronic alcoholism Acute Diarrhea Acute Elevated bilirubin Acute Gravely disabled Acute Hand edema Acute Homicidal thoughts Acute Hypertension Acute Hypokalemia Acute Hyponatremia Acute Lactic acidosis Acute Leg edema Acute Leukocytosis Acute Leukocytosis Acute Malingering Acute Nausea vomiting and diarrhea Acute Pneumonia Acute Pneumonia Acute Schizoaffective disorder, bipolar type Acute Verbalizes suicidal thoughts Acute
--- NOTE | 2018-11-25 11:18 | ASMTCMCOM ---
CM Note CM Note Notes: CM met with patient, he understands the discharge plan is to hotel respite/[facility]. CM shared we can arrange cab transport when he is ready. He continues to require O2, plan to evaluate how he does on room air tomorrow. He states he is aware of the appointment at [facility] on Monday. He shares he has little money, he is concerned about ability to eat when discharged as his SNAP benefits do not refill until 12/03/18 and he is planning on leaving to [place] on 11/30/18.CM to follow. C/D/Plan: [facility] Date Signed: 11/25/2018 11:17 AM Electronically Signed By:Vanesa Bobby
[2018-11-25] MEDS ORDERED: D50W 25 GM/50 ML SYR IVP PRN (18:47)
[2018-11-25] MEDS ORDERED: SODIUM CL NASAL 45 ML BTL EACHNARE PRN (21:47)
[2018-11-26] MEDS: LORazepam 1 MG TAB PO PRN ×2 (02:48→11:19)
[2018-11-26] MEDS: GUAIFENESIN/DM 10 ML UDCUP PO PRN ×3 (02:48→13:07)
[2018-11-26] MEDS: oxyCODONE IR 5 MG TAB PO PRN ×4 (02:48→17:18)
[2018-11-26] MEDS: NICOTINE POLACRILEX 2 MG GUM B PRN ×5 (02:49→16:50)
[2018-11-26] MEDS: IPRATROPIUM/ALBUTEROL 3 ML DEYVIAL IH SCH ×3 (05:22→15:15)
[2018-11-26] MEDS: amLODIPine BESYLATE 5 MG TAB PO SCH (07:50)
[2018-11-26] MEDS: predniSONE 20 MG TAB PO SCH (07:50)
[2018-11-26] MEDS: guaiFENesin 600 MG TAB.ER PO SCH ×2 (07:50→19:50)
[2018-11-26] MEDS: ENOXAPARIN 40 MG/0.4 ML SYR SC SCH (07:50)
[2018-11-26] MEDS: FLUTICASONE NASAL 120 SPRAYS/16 GM MDI EACHNARE SCH (07:52)
[2018-11-26] MEDS: NICOTINE 21 MG/24 HR PATCH TD SCH (07:52)
[2018-11-26] MEDS: INSULIN LISPRO 100 UNIT/ML SC SCH ×3 (09:11→18:19)
--- NOTE | 2018-11-26 10:23 | ASMTLACE ---
LACE Length of stay for Answers: 4-6 days current admission Acuity / Level of Answers: Yes Care: Did the patient have an inpatient admission? Comorbidities - select Answers: Chronic pulmonary disease all that apply # of Emergency department Answers: 5-8 visits in the last 6 months Social determinants Answers: History of substance abuse (ETOH, street drugs, prescription drugs, etc.) Homelessness (street, care home) Score: 19 Date Signed: 11/26/2018 10:22 AM Electronically Signed By:ANIBAL Gonzalez
--- NOTE | 2018-11-26 10:28 | ASMTDCNOTE ---
Case Management Discharge Discharge Order Complete? Answers: Yes Patient to Obtain Answers: Independently Medications Transportation Arranged Answers: Other Notes: Taxi voucher EMTALA Complete Answers: No Case Management Transport Answers: No Form Complete Faxed Final Orders Answers: Yes Agency/Facility Transfer Answers: Yes Report Printed & Faxed to Receiving Agency Family Notified Answers: No Discharge Comments Notes: Pts case discussed w/ Dr. Sow and Angelica RN. Pt is being d/c'd today. CM called the [facility] in [place] and made [facility] case mangement respite reservation for 2 nights. CM called Rica at [facility] to notify her of the d/c. CM scheduled meals on wheels for today and tomorrow. Pt will get a total of 6 meals. CM met w/ pt and provided him w/ his post hospital d/c follow up at [facility]. CM provided pt w/ a taxi voucher. No other needs at this time. CM available for changes. Plan: Independent Date Signed: 11/26/2018 10:28 AM Electronically Signed By:ANIBAL Gonzalez
[2018-11-26] MEDS: CARVEDILOL 3.125 MG TAB PO SCH ×2 (11:43→19:51)
--- NOTE | 2018-11-26 12:11 | GDS ---
[f rep st] DISCHARGE SUMMARY DISCHARGE DIAGNOSES: 1. [id number]-[id number] hypoxemic respiratory failure secondary to viral upper respiratory infection and probable underlying chronic obstructive pulmonary disease. 2. Parainfluenza virus. 3. Presumed chronic obstructive pulmonary disease, warrants outpatient pulmonary function tests. 4. Hypertension. 5. Sinus tachycardia, intermittent in the setting of beta-2 agonist and anxiety. 6. Schizoaffective disorder. 7. Anxiety disorder. 8. Tobacco dependence. 9. Homelessness. HISTORY: For details, please see history and physical dated November 21, 2018. In brief, the patien houston is a 63-year-old homeless male with a history of heavy tobacco use and presumed underlying COPD, pr esented to the hospital with cough and shortness of breath. He tested positive for rhinovirus and livingston d mild hypoxemia. He was admitted to the hospital for further management. HOSPITAL COURSE: The patient was admitted to the med/surg unit. He received scheduled DuoNeb along with p.r.n. albuterol nebs and was started on high-dose steroids. His chest x-ray showed no evidence of bacterial pneumonia with a procalcitonin level that was low and reassuring. He does have COPD changes on his chest x-ray, as well as peribronchial thickening. He should have outpatient PFTs once his condition returns to baseline. He was treated with cefdinir for 5 days, though this has been since discontinued. His hypertension was poorly controlled, and his No rvasc was increased to 10 mg daily. At discharge, I am also adding hydralazine 10 mg 3 times daily a s he did receive several p.r.n. doses of hydralazine here for blood pressures greater than 160/100. He should have close followup at the [facility] to recheck his blood pressure and oxygen levels. He was weaned off oxygen and has been saturating 89% to 91% on room air at discharge. He is not re ally a candidate for home oxygen given his homeless status. Case Management was involved, and it has been set up for him to have respite care at the [facility] for a couple of days, and then he will g o back to the [facility]. He also had intermittent sinus tachycardia, though t his is improved on the day of discharge with his heart rate back down in the 80s to 90s. I suspect h is anxiety along with prednisone and albuterol nebs contributed to his mild sinus tachycardia during the hospitalization. DISPOSITION: Patient is discharged to respite care at the [facility] in stable condition. FOLLOWUP: The patient has a followup appointment on November 28 at 11:[address] Paddy flower. He is aware of this. I recommend the patient have pulmonary function tests once his condition h as returned to baseline for suspected underlying COPD. DISCHARGE MEDICATIONS: Please see [facility] for completed outpatient medication list. New medication s on discharge include: 1. Norvasc 10 mg p.o. daily, #30, no refills. 2. Qvar 1 inhalation b.i.d., #1, no refill. 3. Tessalon Perles 100 mg p.o. t.i.d. p.r.n., #30, no refills. 4. Mucinex 1200 mg p.o. b.i.d. 5. Robitussin DM oral liquid 10 mL p.o. q.6 hours p.r.n. 6. Hydralazine 10 mg p.o. t.i.d., #90, no refills. 7. Prednisone taper 40 mg p.o. daily for 3 days, then 30 mg p.o. daily for 3 days, then 20 mg p.o. d aily for 3 days, then 10 mg p.o. daily for 3 days, then off. 8. Spiriva inhaler 18 mcg inhaled once daily. /[id number]/MODL
--- NOTE | 2018-11-26 12:40 | HOSPPROG ---
Hospitalist Progress Note Assessment/Plan: 63y male with c/o SOB, admitted with acute bronchitis / viral URI. Discharge was planned for today, but cancelled when he developed increased O2 requirement up to 3 LPM (was 90% on room air) and worsening tachycardia. #Parainfluenza virus type 3 -supportive care, nebs, anti-tussives -cont prednisone, decreased to 60 mg once daily from bid, planning for taper at dc -guaifenesin added, which has been helpful #Acute hypoxemic resp failure - 2/2 above along with presumed COPD exacerbation , 4 LPM --> RA --> 3 LPM. Rpt CXR pers reviewed: COPD changes with philippe- bronchial thickening -STAT CTA today given increased O2 requirement with tachycardia and elevated d dimer- neg for PE, CAD noted as well as airway dz -pct low, no e/o bacterial PNA on CXR, atbx d/c'd after 5 days cefdinir #HTN - sub-optimal control -increased Norvasc to 10 mg daily -add coreg low dose, this BB is least likely to worsen COPD and may help with his elevated HR -prn hydralazine #Tachycardia - HR increased today 120s -CTA as above -trial BB as above #Tobacco Dep -gum -cessation education #Schizoaffective/anxiety - h/o substance abuse noted -supportive care -wean ativan #DVT PPLX - Lovenox #Dispo - cont inpt for ongoing hypoxemia with increased O2 requirement, [facility] so can't dc with O2, CM following, planning for respite at [facility] for a couple of days at dc prior to returning to homeless jail Subjective: Pt reported feeling better this am. Less SOB, no CP. No fevers. Coughing less. Planned for d/c, but RN noted increased O2 requirement and tachycardia. D/C was canceled and pt sent for CTA. Objective: Vital Signs Temp Pulse Resp BP Pulse Ox 36.7 C 123 H 18 138/93 H 90 L 11/26/18 11:30 11/26/18 11:30 11/26/18 11:30 11/26/18 11:30 11/26/18 11:30 11/25/18 11/26/18 11/27/18 05:59 05:59 05:59 Intake Total 3830 550 Balance 3830 550 - Physical Exam Constitutional: no apparent distress Eyes: PERRL Ears, Nose, Mouth, Throat: moist mucous membranes Cardiovascular: tachycardia Respiratory: no respiratory distress, reduced air movement, expiratory wheeze Gastrointestinal: normoactive bowel sounds, soft, non-tender abdomen Skin: warm Musculoskeletal: full muscle strength Neurologic: AAOx3 Psychiatric: interacting appropriately ICD10 Worksheet Patient Problems: Problems Problem Status Onset Chronic obstructive pulmonary disease with acute exacerbation Acute RANDAL (acute kidney injury) Acute Acute bronchitis Acute Alcohol intoxication Acute Alcohol withdrawal Acute Alcoholic intoxication without complication Acute Alcoholism Acute Anxiety Acute Bilateral ankle pain Acute Bilateral knee pain Acute Blood bacterial culture positive Acute Bronchitis Acute COPD exacerbation Acute Chest pain Acute Chronic alcoholism Acute Diarrhea Acute Elevated bilirubin Acute Gravely disabled Acute Hand edema Acute Homicidal thoughts Acute Hypertension Acute Hypokalemia Acute Hyponatremia Acute Lactic acidosis Acute Leg edema Acute Leukocytosis Acute Leukocytosis Acute Malingering Acute Nausea vomiting and diarrhea Acute Pneumonia Acute Pneumonia Acute Schizoaffective disorder, bipolar type Acute Verbalizes suicidal thoughts Acute
[2018-11-26] MEDS ORDERED: IOPAMIDOL (ISOVUE 370) 100 ML BTL IV ONE ×2 (13:35→13:53)
--- NOTE | 2018-11-26 13:45 | ASMTCMCOM ---
CM Note CM Note Notes: Pts discharge is being cancelled. CM updated [facility] and cancelled the reservations for 2 nights. [employer] has already delivered meals for pt tonight. [facility] will hold onto the meals for pt. CM left a msg for Rica at [facility] to inform her that the d/c has been cancelled. CM provided pt a pair of pants from the donation closet. CM to follow. Date Signed: 11/26/2018 01:45 PM Electronically Signed By:ANIBAL Gonzalez
[2018-11-26] MEDS ORDERED: LORazepam 1 MG TAB PO PRN (18:05)
[2018-11-27] MEDS: IPRATROPIUM/ALBUTEROL 3 ML DEYVIAL IH SCH ×6 (00:11→21:43)
[2018-11-27] MEDS: oxyCODONE IR 5 MG TAB PO PRN ×4 (01:30→21:27)
--- NOTE | 2018-11-27 08:25 | HOSPPROG ---
Hospitalist Progress Note Assessment/Plan: 63y male with c/o SOB, admitted with acute bronchitis / viral URI. First encounter, chart reviewed. #Parainfluenza virus type 3 -supportive care, nebs, anti-tussives -cont prednisone, decreased to 60 mg once daily-needs a taper -guaifenesin #Acute hypoxemic resp failure -multifactorial, bronchitis, copd, parainfluenza -CTA is negative for a PE -was treated w Cefdinir for poss pna #HTN - sub-optimal control but better -increased Norvasc to 10 mg daily -Coreg low dose, this BB is least likely to worsen COPD and may help with his elevated HR -prn hydralazine #Tachycardia -trial BB as above -ongoing today, with any deep breathing, heart rate rapidly increases #Tobacco Dep -gum -cessation education #Schizoaffective/anxiety - h/o substance abuse noted -supportive care -wean ativan #DVT PPLX - Lovenox #Dispo -CM following, planning for respite at [facility] for a couple of days at dc prior to returning to homeless jail. Not quite ready for dc, has significant wheezing. Subjective: Liborio said he is feeling too poorly to be discharged. Objective: Vital Signs Temp Pulse Resp BP Pulse Ox 36.4 C 100 18 155/109 H 89 L 11/27/18 08:00 11/27/18 08:10 11/27/18 08:10 11/27/18 08:00 11/27/18 08:10 11/26/18 11/27/18 11/28/18 05:59 05:59 05:59 Intake Total 550 1440 Balance 550 1440 - Physical Exam Constitutional: appears nourished, not in pain, chronically ill appearing Eyes: PERRL Ears, Nose, Mouth, Throat: hearing normal Cardiovascular: regular rate and rhythym, tachycardia Respiratory: reduced air movement, expiratory wheeze Gastrointestinal: normoactive bowel sounds Skin: warm Neurologic: AAOx3 Psychiatric: interacting appropriately, not anxious ICD10 Worksheet Patient Problems: Problems Problem Status Onset Chronic obstructive pulmonary disease with acute exacerbation Acute RANDAL (acute kidney injury) Acute Acute bronchitis Acute Alcohol intoxication Acute Alcohol withdrawal Acute Alcoholic intoxication without complication Acute Alcoholism Acute Anxiety Acute Bilateral ankle pain Acute Bilateral knee pain Acute Blood bacterial culture positive Acute Bronchitis Acute COPD exacerbation Acute Chest pain Acute Chronic alcoholism Acute Diarrhea Acute Elevated bilirubin Acute Gravely disabled Acute Hand edema Acute Homicidal thoughts Acute Hypertension Acute Hypokalemia Acute Hyponatremia Acute Lactic acidosis Acute Leg edema Acute Leukocytosis Acute Leukocytosis Acute Malingering Acute Nausea vomiting and diarrhea Acute Pneumonia Acute Pneumonia Acute Schizoaffective disorder, bipolar type Acute Verbalizes suicidal thoughts Acute
[2018-11-27] MEDS: FLUTICASONE NASAL 120 SPRAYS/16 GM MDI EACHNARE SCH (08:42)
[2018-11-27] MEDS: ENOXAPARIN 40 MG/0.4 ML SYR SC SCH (08:43)
[2018-11-27] MEDS: NICOTINE 21 MG/24 HR PATCH TD SCH (08:43)
[2018-11-27] MEDS: predniSONE 20 MG TAB PO SCH (08:44)
[2018-11-27] MEDS: amLODIPine BESYLATE 5 MG TAB PO SCH (08:44)
[2018-11-27] MEDS: guaiFENesin 600 MG TAB.ER PO SCH ×2 (08:44→21:27)
[2018-11-27] MEDS: INSULIN LISPRO 100 UNIT/ML SC SCH ×3 (08:44→17:14)
[2018-11-27] MEDS: CARVEDILOL 3.125 MG TAB PO SCH ×2 (08:44→17:08)
[2018-11-27] MEDS: NICOTINE POLACRILEX 2 MG GUM B PRN ×5 (08:50→18:19)
[2018-11-27] MEDS: BENZONATATE 100 MG CAP PO PRN (09:46)
[2018-11-27] MEDS: IBUPROFEN 600 MG TAB PO PRN (22:42)
[2018-11-28] MEDS: oxyCODONE IR 5 MG TAB PO PRN (02:53)
[2018-11-28] MEDS: ACETAMINOPHEN 325 MG TAB PO PRN (02:58)
[2018-11-28] MEDS: IPRATROPIUM/ALBUTEROL 3 ML DEYVIAL IH SCH ×2 (06:10→11:22)
[2018-11-28 07:36] VITALS: BP 147/102
[2018-11-28] MEDS: INSULIN LISPRO 100 UNIT/ML SC SCH (07:38)
[2018-11-28] MEDS: CARVEDILOL 3.125 MG TAB PO SCH (07:46)
[2018-11-28] MEDS: ENOXAPARIN 40 MG/0.4 ML SYR SC SCH (07:46)
[2018-11-28] MEDS: amLODIPine BESYLATE 5 MG TAB PO SCH (07:46)
[2018-11-28] MEDS: guaiFENesin 600 MG TAB.ER PO SCH (07:47)
[2018-11-28] MEDS: predniSONE 20 MG TAB PO SCH (07:47)
[2018-11-28] MEDS: NICOTINE 21 MG/24 HR PATCH TD SCH (07:47)
--- NOTE | 2018-11-28 08:13 | HOSPPROG ---
Hospitalist Progress Note Assessment/Plan: 63y male with c/o SOB, admitted with acute bronchitis / viral URI. #Parainfluenza virus type 3 -supportive care, nebs, anti-tussives -cont prednisone, taper at dc #Acute hypoxemic resp failure -multifactorial, bronchitis, copd, parainfluenza -CTA is negative for a PE -was treated w Cefdinir for poss pna #HTN - sub-optimal control but better -increased Norvasc to 10 mg daily -Coreg low dose, this BB is least likely to worsen COPD and may help with his elevated HR -prn hydralazine #Tachycardia -trial BB as above -ongoing today, with any deep breathing, heart rate rapidly increases #Tobacco Dep -gum -cessation education #Schizoaffective/anxiety - h/o substance abuse noted -supportive care -wean ativan #DVT PPLX - Lovenox #Dispo -dc today, has an app[facility] at 11:25 Subjective: Liborio is feeling much better today Objective: Vital Signs Temp Pulse Resp BP Pulse Ox 36.6 C 80 18 147/102 H 90 L 11/28/18 07:32 11/28/18 07:46 11/28/18 07:32 11/28/18 07:46 11/28/18 07:32 11/27/18 11/28/18 11/29/18 05:59 05:59 05:59 Intake Total 1440 1260 Balance 1440 1260 - Physical Exam Constitutional: no apparent distress, appears nourished Eyes: PERRL Ears, Nose, Mouth, Throat: hearing normal Cardiovascular: regular rate and rhythym, No tachycardia Respiratory: no respiratory distress, expiratory wheeze (much less noted today compared to yesterday's exam) Skin: warm Musculoskeletal: full muscle strength Neurologic: AAOx3 Psychiatric: interacting appropriately ICD10 Worksheet Patient Problems: Problems Problem Status Onset Chronic obstructive pulmonary disease with acute exacerbation Acute RANDAL (acute kidney injury) Acute Acute bronchitis Acute Alcohol intoxication Acute Alcohol withdrawal Acute Alcoholic intoxication without complication Acute Alcoholism Acute Anxiety Acute Bilateral ankle pain Acute Bilateral knee pain Acute Blood bacterial culture positive Acute Bronchitis Acute COPD exacerbation Acute Chest pain Acute Chronic alcoholism Acute Diarrhea Acute Elevated bilirubin Acute Gravely disabled Acute Hand edema Acute Homicidal thoughts Acute Hypertension Acute Hypokalemia Acute Hyponatremia Acute Lactic acidosis Acute Leg edema Acute Leukocytosis Acute Leukocytosis Acute Malingering Acute Nausea vomiting and diarrhea Acute Pneumonia Acute Pneumonia Acute Schizoaffective disorder, bipolar type Acute Verbalizes suicidal thoughts Acute
[2018-11-28] MEDS: FLUTICASONE NASAL 120 SPRAYS/16 GM MDI EACHNARE SCH (09:15)
--- NOTE | 2018-11-28 09:58 | ASMTCMCOM ---
CM Note CM Note Notes: Pts case discussed w/ Martine Borja NP. Pt is being d/c'd today. Pt refuses to go to his [facility] appointment. Pt reports that the only reason he has an appointment w/ his PCP was because he had pneumonia. Pt reports that since he has been in the hospital he is feeling much better. CM cancelled his appointment. CM re-booked the [facility] 2 night. Pt will take a [facility] taxi voucher there. Pts meals on wheels will be waiting for him at the hotel. Pt still plans on leaving for [place] on 11/30. No other needs at this time. CM available for changes. Plan: Independent Date Signed: 11/28/2018 09:58 AM Electronically Signed By:ANIBAL Gonzalez
--- NOTE | 2018-11-28 12:26 | GDS ---
[f rep st] DISCHARGE SUMMARY DISCHARGE DIAGNOSES: 1. Ahpge-sm-giyetgl hypoxemic respiratory failure secondary to an upper viral infection and underlyi ng chronic obstructive pulmonary disease. 2. Parainfluenza virus. 3. Presumed chronic obstructive pulmonary disease. 4. Hypertension. 5. Sinus tachycardia. 6. Schizoaffective disorder. 7. Anxiety disorder. 8. Tobacco dependence. 9. Homelessness. Please see Dr. Sow's discharge summary noted on 11/26 for further details. The patient was held for a few more nights because of ongoing tachycardia and increased O2 needs. A CTA was performed, wh ich was negative. He is feeling markedly better. Recommendation is for him to get a pulmonary funct ion test once his condition improves. He has an appointment with Dr. Sanchez today at 11:25. DISCHARGE CONDITION: Stable. Blood pressure is 147/102, O2 sats on room air are 91%, heart rate is 80, respiratory rate is 18, temperature is 36.6 Celsius. MEDICATIONS AT DISCHARGE: Please see the EMR. DISCHARGE INSTRUCTIONS: 1. He is planning on leaving the [facility]. Recommend that he follow up with Dr. Sanchez, take a copy of all his medications, so he can get close followup. 2. If he develops fever, chills, chest pain, shortness of breath, return to the ER. Greater than 30 minutes discharging and coordinating the patient's care. /[id number]/MODL
--- NOTE | 2018-12-04 13:38 | CPEKG ---
Test Reason : OPEN Blood Pressure : / mmHG Vent. Rate : 092 BPM Atrial Rate : 093 BPM P-R Int : 128 ms QRS Dur : 092 ms QT Int : 354 ms P-R-T Axes : 062 068 047 degrees QTc Int : 438 ms Sinus rhythm Confirmed by Markell Barnes ([id number]) on 12/04/2018 1:38:42 PM Referred By: Jane Patricio Confirmed By:Markell Barnes
== END 2018-11-28 11:29 | disposition home or self-care (01) | DRG 133 ==
LOC: EDUNIT# → F3E 12:50 → OBSVTOIN 11-22 14:48
PROVIDERS: ADMIT Family Medicine; ATTEND Family Medicine
DX: J96.21 Acute and chronic respiratory failure with hypoxia (principal); J06.9 Acute upper respiratory infection, unspecified; B34.8 Other viral infections of unspecified site; J44.9 Chronic obstructive pulmonary disease, unspecified; F25.9 Schizoaffective disorder, unspecified; I10 Essential (primary) hypertension; K74.60 Unspecified cirrhosis of liver; B19.20 Unspecified viral hepatitis C without hepatic coma; N40.0 Benign prostatic hyperplasia without lower urinary tract symptoms; E66.01 Morbid (severe) obesity due to excess calories; Z68.30 Body mass index [BMI] 30.0-30.9, adult; F41.9 Anxiety disorder, unspecified; F10.21 Alcohol dependence, in remission; F17.210 Nicotine dependence, cigarettes, uncomplicated; Z59.0 Homelessness
CPT/HCPCS: 96374; G0378; J0360; J1650; J1815; J2930; J7512; J7613; Q9967

== ENCOUNTER 2018-12-03 22:31 | Inpatient (IN) | payer MEDICAID ==
[2018-12-03] MEDS ORDERED: methylPREDNISolone SOD SUCC 125 MG/2 ML VIAL IVP ONE (22:40)
[2018-12-03] MEDS ORDERED: IPRATROPIUM/ALBUTEROL 3 ML DEYVIAL IH ONE (22:40)
[2018-12-04] MEDS ORDERED: IPRATROPIUM/ALBUTEROL 3 ML DEYVIAL IH ONE (00:02)
--- NOTE | 2018-12-04 00:50 | EDPHY ---
H & P Stated Complaint: difficulty breathing, fever Time Seen by Provider: 12/03/18 22:34 HPI/ROS: Chief complaint: Trouble breathing History of present illness: This is a 63-year-old male who is brought to the emergency department by EMS for trouble breathing. Patient reports the onset of symptoms today. He states he is in his usual state of health yesterday. This morning woke up feeling unwell. Throughout the days had increasing trouble breathing. Has felt feverish. He reports generalized malaise. EMS does report that he was hypoxic into the mid to low 80s and tachypneic up to the low 30s, and had a temperature of a 102 degrees by tympanic membrane measurement. Patient does report he has not been taking his medications recently. He was recently admitted to this hospital for similar symptoms. Review of systems: A 10 point review of systems was obtained and other than described above was negative - Personal History Tetanus Vaccine Date: < 10 YEARS - Medical/Surgical History Hx Asthma: Yes Hx Chronic Respiratory Disease: No Hx Diabetes: No Hx Cardiac Disease: Yes Hx Renal Disease: No Hx Cirrhosis: Yes Hx Alcoholism: Yes Hx HIV/AIDS: No Hx Splenectomy or Spleen Trauma: No Other PMH: MEDICAL- ANXIETY, LIVER DISEASE, ASCITES, IVDA, HEP C+, alcohol and drug abuse/MENTAL HEALTH, htn,cirrohsis, hx of 3 ruptured discs/back surgs/ tonsillectomy, - Social History Smoking Status: Heavy smoker - Physical Exam Exam: General Appearance: Alert, cbja-xj-bblguqxw distress. Eyes: Pupils equal and round no pallor or injection. ENT, Mouth: Mucous membranes moist. Respiratory: Diffuse rhonchi with predominantly expiratory wheezing Cardiovascular: Regular rate and rhythm. Gastrointestinal: Abdomen is soft and non tender, no masses, bowel sounds normal. Neurological: Alert. Strength and sensation intact. Skin: Warm and dry, no rashes. Musculoskeletal: Neck is supple non tender. Extremities are symmetrical, full range of motion. Psychiatric: Patient is oriented X 3, there is no agitation. Constitutional: Initial Vital Signs O2 Sat (%) 93 12/03/18 22:35 O2 Delivery Mode Oxymask O2 (L/minute) 6 Allergies/Adverse Reactions: ketorolac [From Toradol] Allergy (Severe, Verified 11/21/18 03:31) Anaphylaxis levofloxacin [From Levaquin] Allergy (Severe, Verified 11/21/18 03:31) tendinopathy lisinopril Allergy (Severe, Verified 11/21/18 03:31) Anaphylaxis Home Medications: Medication Instructions Recorded Acetaminophen [Tylenol 325mg (*)] 650 mg PO Q4HRS PRN tab 11/09/18 Fluticasone Nasal [Flonase Nasal 1 sprays EACHNARE DAILY mdi 11/09/18 [place]] Nicotine Polacrilex [Nicorette gum 2 mg B PRN PRN gum 11/09/18 (*)] Beclomethasone Qvar 40 [Qvar 40 1 inh IH BID #1 mdi 11/26/18 [place] (*)] Benzonatate [Tessalon Pearles] 100 mg PO TID PRN #30 cap 11/28/18 Carvedilol [Coreg (*)] 3.125 mg PO BIDMEAL #60 tab 11/28/18 Sodium Cl Nasal [[place] (*)] 1 spray EACHNARE PRN PRN btl 11/28/18 Tiotropium Inhaler [Spiriva 18 mcg IH DAILY #1 mdi 11/28/18 [place]] amLODIPine BESYLATE [Norvasc 10 mg 10 mg PO DAILY #30 tab 11/28/18 (*)] guaiFENesin [Mucinex 600 MG (*)] 1,200 mg PO BID tab.er 11/28/18 guaiFENesin/DEXTROMETHORPHAN 10 ml PO Q4HRS PRN ml 11/28/18 [Robitussin Dm Oral Liquid (*)] predniSONE 40 mg PO DAILY #14 tablet 11/28/18 Medical Decision Making - Diagnostics Imaging: I viewed and interpreted images myself ED Course/Re-evaluation: Patient seen in conjunction with my secondary supervising physician Dr. Roger Berg. Patient presents with dyspnea. He is tachypneic and hypoxic. Chest x- ray obtained, query increasing left lower lung findings and a possible left lower effusion. IV access has been extremely delayed in this patient. Initially he would only allow staff to access certain parts of his body. These were unsuccessful. He subsequently refused his primary nurse to provide any treatment. He did not "like her accent," and refused care from her. I had a discussion with him on the importance of obtaining blood and IV access for appropriate and timely therapy. He agreed. Multiple peripheral IVs were attempted by multiple staff members without success. This included ultrasound- guided IVs. Ultimately a small gauge IV was obtained that would not draw blood but would flow fluid. Slow IV hydration was begun. Dr. Roger Berg had to perform a femoral stick to obtain blood. I personally held pressure for 10 min , good hemostasis obtained, a dressing was placed. The blood was immediately transferred to tubes, only enough was obtained for a single set of blood cultures. I admitted the patient to Dr. Jane Patricio for further evaluation and care. Upon receiving results of the blood studies patient did qualify for severe sepsis. I contacted Dr. Patricio again. We decided to start the patient on 2 g of cefepime IV. IV hydration was continued. IV hydration is slow given the size of the gauge of the IV. Plan is to obtain lactate soon as he is given a full bolus. Patient is aware that he will be admitted. Differential Diagnosis: Included but not limited to COPD exacerbation, pulmonary infections including bronchitis and pneumonia, congestive heart failure, sepsis - Data Points Laboratory Results: Laboratory Results 12/03/18 01:30 12/03/18 01:30 12/04/18 12/03/18 12/03/18 00:14 01:30 01:30 WBC RBC Hgb Hct MCV MCH MCHC RDW Plt Count MPV Neut % (Auto) Lymph % (Auto) [place] % (Auto) Eos % (Auto) Baso % (Auto) Nucleat RBC Rel Count Absolute Neuts (auto) Absolute Lymphs (auto) Absolute Monos (auto) Absolute Eos (auto) Absolute Basos (auto) Absolute Nucleated RBC Immature Gran % Immature Gran # PT REJ INR REJ APTT REJ VBG Lactic Acid Sodium 133 mEq/L L mEq/L (135-145) Potassium 4.1 mEq/L mEq/L (3.5-5.2) Chloride 102 mEq/L mEq/L (97-110) Carbon Dioxide 23 mEq/l mEq/l (22-31) Anion Gap 8 mEq/L mEq/L (6-14) BUN 17 mg/dL mg/dL (7-23) Creatinine 0.7 mg/dL mg/dL (0.7-1.3) Estimated GFR > 60 Glucose 183 mg/dL H mg/dL (70-100) Calcium 8.3 mg/dL L mg/dL (8.5-10.4) Total Bilirubin 0.9 mg/dL mg/dL (0.1-1.4) NT-Pro-B Natriuret Pep 169 pg/mL H pg/mL (0-125) Nasal Influenza A PCR NEGATIVE FOR FLU A (NEGATIVE) Nasal Influenza B PCR NEGATIVE FOR FLU B (NEGATIVE) Ethyl Alcohol < 10 mg/dL mg/dL (0-10) 12/03/18 12/03/18 01:30 01:30 WBC REJ RBC REJ Hgb REJ Hct REJ MCV REJ MCH REJ MCHC REJ RDW REJ Plt Count REJ MPV REJ Neut % (Auto) REJ Lymph % (Auto) REJ [place] % (Auto) REJ Eos % (Auto) REJ Baso % (Auto) REJ Nucleat RBC Rel Count REJ Absolute Neuts (auto) REJ Absolute Lymphs (auto) REJ Absolute Monos (auto) REJ Absolute Eos (auto) REJ Absolute Basos (auto) REJ Absolute Nucleated RBC REJ Immature Gran % REJ Immature Gran # REJ PT INR APTT VBG Lactic Acid 2.6 mmol/L H mmol/L (0.7-2.1) Sodium Potassium Chloride Carbon Dioxide Anion Gap BUN Creatinine Estimated GFR Glucose Calcium Total Bilirubin NT-Pro-B Natriuret Pep Nasal Influenza A PCR Nasal Influenza B PCR Ethyl Alcohol Medications Given: Cefepime HCl 2 gm/ Sodium (Chloride) 100 mls @ 200 mls/hr IV EDNOW ONE PRN Reason: Protocol Stop: 12/04/18 02:29 Last Admin: 12/04/18 02:23 Dose: 100 mls Discontinued Medications Albuterol/Ipratropium (Duoneb) 3 ml IH EDNOW ONE Stop: 12/03/18 22:41 Last Admin: 12/03/18 22:43 Dose: 3 ml Albuterol/Ipratropium (Duoneb) 3 ml IH EDNOW ONE Stop: 12/04/18 00:03 Last Admin: 12/04/18 00:06 Dose: 3 ml Sodium Chloride (Ns) 2,600 mls @ 5,200 mls/hr 30 ml/kg infuse over 30 min ( 2600 ml) IV EDNOW ONE PRN Reason: Protocol Stop: 12/04/18 02:23 Last Admin: 12/04/18 02:02 Dose: 2,600 mls Lorazepam (Ativan Injection) 2 mg IVP EDNOW ONE Stop: 12/04/18 01:12 Last Admin: 12/04/18 01:17 Dose: 2 mg Methylprednisolone Sodium Succinate (Solu-Medrol) 125 mg IVP EDNOW ONE Stop: 12/03/18 22:41 Last Admin: 12/04/18 01:30 Dose: 125 mg Departure - Departure Disposition: [facility] Inpatient Acute Clinical Impression: Dyspnea Qualifiers: Dyspnea type: unspecified Qualified Code(s): R06.00 - Dyspnea, unspecified Condition: Fair
[2018-12-04] MEDS ORDERED: LORazepam 2 MG/ML INJ ONE (01:10)
[2018-12-04] MEDS ORDERED: LORazepam 2 MG/ML INJ IVP ONE (01:11)
[2018-12-04] MEDS ORDERED: NS 2,600 ML IV ONE (01:54)
[2018-12-04] MEDS ORDERED: CEFEPIME HCL 2 GM in NS 100 ML IV ONE (02:00)
[2018-12-04] MEDS ORDERED: ONDANSETRON 4 MG/2 ML VIAL IVP PRN (02:02)
[2018-12-04] MEDS ORDERED: IPRATROPIUM/ALBUTEROL 3 ML DEYVIAL IH PRN (02:02)
[2018-12-04] MEDS: ACETAMINOPHEN 325 MG TAB PO PRN ×2 (03:48→21:43)
--- NOTE | 2018-12-04 05:25 | GHP ---
[f rep st] HISTORY AND PHYSICAL DATE OF ADMISSION: 12/04/2018 SOURCE: Patient in acute respiratory distress and quite fatigued. Limited history obtained from the patient. EMR was reviewed and case discussed with ED provider. CHIEF COMPLAINT: Shortness of breath. HISTORY OF PRESENT ILLNESS: This is a 63-year-old gentleman, well known to our hospital service with past medical history significant for COPD, schizoaffective disorder, anxiety, continued tobacco depe ndence, history of alcohol dependence in recent remission, who presents to the emergency department t mahesh with complaints of sudden onset of shortness of breath today. Patient arrives by EMS from [facility]. Patient woke up feeling unwell with shortness of breath, feverish, and fatigued. EMS reported p athalina was saturating in the low 80s and tachypneic into the 30s. Measured fever of 102. Patient wa s recently discharged on 11/28/2018 following COPD exacerbation. Patient with multiple hospital stay s related to a viral infection. He has had a history of parainfluenza positive testing. In the [facility] department, patient initially was refusing any sort of intervention or care. He had initially declined any lab draws or IV placement, but subsequently agreed. Patient with significant IV access difficulties and required fem stick for labs; however, those did hemolyze. Additionally, patient was placed on BiPAP for trial, but he was intolerant of this after a short period of time. Patient was given 2 mg of Ativan and also 2 mg of morphine to assist with his air hunger; however, patient refuse d BiPAP despite being reassured that his heart rate, blood pressure, and respiratory status were impr oving. Patient demanded it be removed. Review of systems limited due to patient's respiratory status, dyspnea. Patient reports bilateral ch est tightness, cough, fever, rhinorrhea, sore throat. Positive sick contact exposures as patient is homeless. ALLERGIES: Ketoralac, Levaquin, lisinopril. REVIEW OF SYSTEMS: Ten systems reviewed, negative except as noted above. PAST MEDICAL HISTORY: Significant for multiple hospitalizations for COPD. Patient with viral respir atory infection, superimposed; schizoaffective disorder; anxiety; alcohol dependence, in remission, p alida reports he has not had a drink in months; hypertension; chronic back pain; hyperlipidemia; HCV ; cervical spinal stenosis;, BPH. HOME MEDICATIONS: Patient reports that he was not compliant with his discharge medication therapy. PAST SURGICAL HISTORY: Significant for colonoscopy with history of polyps, laminectomy, tonsillectom y, adenoidectomy. FAMILY HISTORY: Father's family had a history of colon cancer. SOCIAL HISTORY: Patient is homeless, [facility]. He states that he does have plan s to move to [place] in the very near future. Patient with history of [id number] history. Continues to smoke. He denies any other illicit drugs and reports that he is sober from alcohol for 2 months. CODE STATUS: Full. PHYSICAL EXAMINATION: VITAL SIGNS: Upon arrival to the emergency department: Blood pressure 123/10 6, heart rate 150, respiratory rate 24, O2 sat 94% on 2 L by OxyMask, with temperature 37.6. Vitals available at time of interview: Blood pressure 129/93, heart rate 134, respiratory rate 26, O2 sat 9 4% on BiPAP. GENERAL: Patient in moderate respiratory distress. He is initially lying in bed on an angle with minimal interaction. He is staring and just having shallow breathing, tachypneic. Chron ically ill-appearing, obese gentleman. HEAD: Normocephalic, atraumatic. EYES: Extraocular muscles are grossly intact. Pupils are equal, round, and symmetric. No scleral icterus or ocular drainage. ENT: Mucous membranes appear quite dry. No nasal discharge. CV: Tachycardic. Distant heart adan nds but regular. RESPIRATORY: Tachypneic with decreased air movement in all lung arreguin. Occasiona l wheezing in anterior lung arreguin. Occasional cough, nonproductive. ABDOMEN: Obese, soft, nontend er to palpation. No rebound, guarding, or masses appreciated. Hypoactive bowel sounds. : No sup rapubic tenderness to palpation. No Gaines catheter in place. EXTREMITIES: No cyanosis, clubbing. Perhaps trace edema bilaterally. 1+ pedal pulses bilaterally, symmetric. No calf pain, swelling. M USCULOSKELETAL: Patient is able to move all extremities. Strength grossly intact. Patient is able to sit up independently with BiPAP in place. NEURO: Grossly nonfocal. Moves all extremities as not ed above. No facial drooping. PSYCH: Patient becomes increasingly distressed with BiPAP in place. He is otherwise cooperative. Affect flat. LABORATORY STUDIES: Sampled hemolyzed WBCs. Lactate 2.6. Sodium 133, potassium 4.1, chloride 102, CO2 23, anion gap 8, BUN 17, creatinine 0.7, GFR greater than 60, glucose 183, calcium is 8.3, total bili 0.9. BTNP is 169. Rapid flu A/B is negative. IMAGING: Chest x-ray: Image reviewed myself. Report is still pending. Flattening in the left cost ophrenic angle, peribronchiolar markings. Left costophrenic angle change is new. EKG was not obtainable as patient had refused care initially. ASSESSMENT AND PLAN: A 63-year-old gentleman with history of chronic obstructive pulmonary disease, continued tobacco dependence, schizoaffective disorder, benign prostatic hypertrophy, anxiety, hypert ension, hyperlipidemia, presents to emergency department with complaints of sudden onset of shortness breath x1 day with subjective measured fevers, complaints of chills, myalgias. 1. Acute hypoxic respiratory failure. Patient did not tolerate a trial of BiPAP in the emergency de partment. He did have improvement in his O2 sats, blood pressures, and tachycardia, however. I did attempt to discuss with the patient regarding more aggressive care including intubation; however, he would not respond when asked if this is something he would want. He was able to transition to OxyMas k, but continued to have increased work of breathing. We will plan to continue with steroids, nebuli zer treatments, an addition of cefepime in setting of severe sepsis criteria and multiple hospitaliza tions and new left lower infiltrate versus effusion. 2. Severe sepsis. Patient with lactate 2.6, tachycardia, tachypnea, and leukocytosis. Cefepime as noted above. Respiratory PCR is pending. Flu A/B is negative. 3. Acute exacerbation chronic obstructive pulmonary disease. Continue with nebs, oxygen, steroids, antibiotics as noted above. 4. Chronic medical issues. 5. Benign essential hypertension. Improved with improved respiratory status. 6. Tobacco dependence. Patient was found to have a cigarette packet on his person. Nicotine replac ement as tolerated. 7. Schizoaffective affective disorder, anxiety. Continue Ativan p.r.n. Monitor respiratory status closely if given. He did receive 2 mg of Ativan in the emergency department and continued to have an xiety. 8. Fluid, electrolyte, nutrition. Continue with intravenous hydration if tolerated. Patient does h ave difficult to access. May need to consider alternative options for intravenous access. Diet as t olerated. 9. Prophylaxis. Sequential compression devices. Lovenox, anticipating patient will require additio nal hospital stay. We will encourage early mobilization. 10. Code status at this time is full. Once patient's respiratory status has improved, we will need additional revisitation of discussion regarding patient's code status, as it did not appear that he w anted to be intubated when this was discussed while on BiPAP. 11. Disposition. Patient admitted to inpatient status on the SDU floor given need for BiPAP. Antic ipate greater than 2-midnight stay given severity of patient's respiratory status. /[id number]/MODL
[2018-12-04] MEDS: ENOXAPARIN 40 MG/0.4 ML SYR SC SCH (07:57)
[2018-12-04] MEDS: methylPREDNISolone SOD SUCC 125 MG/2 ML VIAL IVP SCH ×2 (07:57→21:40)
[2018-12-04] MEDS: CEFEPIME HCL 2 GM in NS 100 ML IV SCH ×2 (10:44→18:18)
[2018-12-04] MEDS ORDERED: ALBUTEROL 3 ML DEYVIAL IH PRN (10:54)
[2018-12-04] MEDS: IPRATROPIUM/ALBUTEROL 3 ML DEYVIAL IH SCH ×3 (11:22→21:48)
--- NOTE | 2018-12-04 12:47 | GCON ---
[f rep st] CONSULTATION PULMONARY CRITICAL CARE CONSULTATION DATE OF CONSULTATION: 12/04/2018 REASON FOR CONSULTATION: Respiratory failure, COPD exacerbation. HISTORY: The patient is a 63-year-old homeless gentleman with multiple medical problems. He is an o ngoing smoker, has significant chronic obstructive pulmonary disease. He was discharged from [facility] on 11/28 following an exacerbation of his COPD. He was found to have parainfluenza positi vity at that time. [facility] He complained of increasing shortness of breath late la st night. Emergency Services brought him from the prison to the emergency department. He was short of breath, complaining of weakness and fatigue and subjective fevers. He was hypoxic by report in t he low 80s and somewhat tachypneic at approximately 30. Temperature was 102 on admission. Chest x-r ay did not show a significant focal infiltrate. A vague retrocardiac infiltrate cannot absolutely be excluded. An IV was eventually placed. He was given cefepime in the emergency department and IV fl uids. He was admitted to the intensive care unit as a step-down patient. BiPAP was ordered, but he refused this overnight. He is being treated with continued cefepime, duo nebs, and Solu-Medrol. He continu es to complain of some chest tightness and shortness of breath. He also complains of bilateral foot and ankle pain. PAST MEDICAL HISTORY: Remarkable for COPD and ongoing tobacco abuse, recent hospitalization for a [place] exacerbation associated with parainfluenza virus, systemic hypertension, schizoaffective disorder, anxiety, homelessness, as well as other medical problems in the past including alcohol abuse, arthri tis, suicide ideation, malingering, etc. Home medications included amlodipine, Spiriva, Coreg, Qvar, prednisone 40 mg per day, Robitussin DM, nicotine patch which he apparently has not been using, Flonase, Tessalon Perles, Tylenol and by his r eport an albuterol inhaler. SOCIAL HISTORY: The patient apparently does not have any immediate family and has no family here. H e states he is trying to get back to [place] where he lives in [place]. Family is there. He livingston s a room at the prison. He has had problems with alcohol in the past but by his report has not been drinking. He continues to smoke cigarettes daily. FAMILY HISTORY: Noncontributory. REVIEW OF SYSTEMS: Difficult to obtain. Patient denies heart disease, denies edema, denies known th romboembolic disease. He has been seen multiple times, probably about 100 from 2008 through today's admission. Most of these visits have been to the emergency department only; however, he has been adm itted multiple times as an inpatient. PHYSICAL EXAMINATION: GENERAL: Reveals an elderly gentleman who is lying in bed. A roll belt is in place. He appears relatively comfortable, is arousable and answers questions appropriately. VITAL SIGNS: Blood pressure is 150/98, heart rate 110 with sinus rhythm on the monitor. He has been on ox ygen between 4 and 8 L by OxyMask. Saturations are 95%. He is afebrile. HEENT: Remarkable for dry mucous membranes. There is no jugular venous distention, lymphadenopathy, or thyromegaly. PULMONAR Y: The chest reveals decreased coarse breath sounds bilaterally. Some end expiratory wheezes and br onchial congestion are present. There are no significant rales. There is no evidence of consolidati on. HEART: Tachycardic. Heart tones are distant. There are no obvious murmurs. Gallop is not hea rd. ABDOMEN: Protruded, soft and nontender. Bowel sounds are present. No Gaines catheter is in kaleb ce. He has been using the urinal. EXTREMITIES: Unremarkable for edema or cords. He complains of s ubjective tenderness over his feet and ankles to palpation. Pulses and color are good. There are no obvious lesions. NEUROLOGIC: Examination is nonfocal. He moves all extremities equally. He is or iented to person and place, not date. DATABASE: Chest x-ray shows no definite confluent infiltrates. A vague area of infiltrate or atelec tasis may be present in the retrocardiac area. Bronchial bonilla appear thickened and consistent with COPD. White blood cell count is 10,300, hematocrit 45. Eosinophils are not present. Blood lactate on admission was 2.6. Sodium is 133, potassium 4.1, BUN 17 with creatinine 0.7. Glucose is 183. BN P is 169. Influenza A/B is negative. Blood alcohol was negative on admission. ASSESSMENT: 1. Exacerbation of chronic obstructive pulmonary disease. This appears to be secondary to recurrent bronchitis. It is unclear if he was taking any inhaled medications or his prednisone in the days pr ior to this readmission. Bronchodilator therapy, antibiotics and Solu-Medrol are being given and he is improving. He did not need BiPAP over night. Pneumonia seems less likely. 2. History of schizophrenia. 3. History of homelessness. 4. Systemic hypertension. Blood pressures are starting to run high. His outpatient antihypertensiv es will be restarted. PLAN AND RECOMMENDATIONS: The patient will be kept in the intensive care unit on step-down status fo r now. As he improves, he can be transitioned to a floor bed. DuoNebs will be continued on a schedu led basis with albuterol used on a p.r.n. basis. Solu-Medrol will be continued. Cefepime will be co ntinued. Doxycycline will be added for atypical coverage. His outpatient medications will be reconc iled. Laboratory and chest x-ray will be followed. Further plans and recommendations will be made based on his progress over the next 12-24 hours. /[id number]/MODL
[2018-12-04] MEDS: DOXYCYCLINE HYCLATE 100 MG CAP/TAB PO SCH ×2 (13:29→21:39)
--- NOTE | 2018-12-04 14:57 | ASMTLACE ---
ANKUR Acuity / Level of Answers: Yes Care: Did the patient have an inpatient admission? Comorbidities - select Answers: Chronic pulmonary disease all that apply Opioid dependence / Chronic pain Other Notes: Hep C; HTN # of Emergency department Answers: 5-8 visits in the last 6 months Social determinants Answers: History of substance abuse (ETOH, street drugs, prescription drugs, etc.) Homelessness (street, long term) Mental health diagnosis (anxiety, depression, pers onality disorders, etc.) Score: 23 Date Signed: 12/04/2018 02:56 PM Electronically Signed By:Josselin Blake
[2018-12-04] MEDS ORDERED: BENZONATATE 100 MG CAP PO PRN (15:21)
--- NOTE | 2018-12-04 15:29 | HOSPPROG ---
Hospitalist Progress Note Assessment/Plan: increased work of breathing possible small infiltrate L base continue cefepime for now as HCAP cxr 12/05 Objective: Vital Signs Temp Pulse Resp BP Pulse Ox 36.8 C 105 H 20 156/105 H 96 12/04/18 11:50 12/04/18 11:50 12/04/18 11:50 12/04/18 11:50 12/04/18 11:50 12/03/18 12/04/18 12/05/18 05:59 05:59 05:59 Intake Total 3469 1936 Output Total 200 1000 Balance 3269 936 PT REJ 12/03/18 01:30 INR REJ 12/03/18 01:30 ICD10 Worksheet Patient Problems: Problems Problem Status Onset Dyspnea Acute RANDAL (acute kidney injury) Acute Acute bronchitis Acute Alcohol intoxication Acute Alcohol withdrawal Acute Alcoholic intoxication without complication Acute Alcoholism Acute Anxiety Acute Bilateral ankle pain Acute Bilateral knee pain Acute Blood bacterial culture positive Acute Bronchitis Acute COPD exacerbation Acute Chest pain Acute Chronic alcoholism Acute Chronic obstructive pulmonary disease with acute exacerbation Acute Diarrhea Acute Elevated bilirubin Acute Gravely disabled Acute Hand edema Acute Homicidal thoughts Acute Hypertension Acute Hypokalemia Acute Hyponatremia Acute Lactic acidosis Acute Leg edema Acute Leukocytosis Acute Leukocytosis Acute Malingering Acute Nausea vomiting and diarrhea Acute Pneumonia Acute Pneumonia Acute Schizoaffective disorder, bipolar type Acute Verbalizes suicidal thoughts Acute
--- NOTE | 2018-12-04 16:28 | PDMN ---
Medical Necessity Medical necessity: Pt meets IP criteria per MD & MCG M-100; est los >2 mn for eval/tx of COPD exacerbation w/tachycardia, tachypnea & fatigue; requiring further monitoring & respiratory supportive care; hx COPD w/recent hospitalizations, homelessness; per H&P & order 12/03/18
[2018-12-04] MEDS: CARVEDILOL 3.125 MG TAB PO SCH (18:18)
[2018-12-04] MEDS ORDERED: BECLOMETHASONE QVAR 40 REDIHALER 120 INH/10.6 GM MDI IH SCH (21:00)
[2018-12-04] MEDS: guaiFENesin 600 MG TAB.ER PO SCH (21:40)
[2018-12-05] MEDS: CEFEPIME HCL 2 GM in NS 100 ML IV SCH ×2 (01:44→10:41)
[2018-12-05] MEDS: ACETAMINOPHEN 325 MG TAB PO PRN (04:51)
[2018-12-05] MEDS: IPRATROPIUM/ALBUTEROL 3 ML DEYVIAL IH SCH ×4 (05:55→20:03)
[2018-12-05] MEDS: ENOXAPARIN 40 MG/0.4 ML SYR SC SCH (08:23)
[2018-12-05] MEDS: DOXYCYCLINE HYCLATE 100 MG CAP/TAB PO SCH ×2 (08:24→20:51)
[2018-12-05] MEDS: CARVEDILOL 3.125 MG TAB PO SCH ×2 (08:24→18:03)
[2018-12-05] MEDS: guaiFENesin 600 MG TAB.ER PO SCH ×2 (08:24→20:51)
--- NOTE | 2018-12-05 09:44 | ASMTCMCOM ---
CM Note CM Note Notes: Pt is a 63 yo M, familiar to [facility]. Pt has history of COPD, schizoaffective disorder, anxiety, tabacco dependence , and ETOH dependence but reports last drink was 2 months ago; denies any active problems with ETOH use at this time. CM offered resources, pt denied. Pt was last discharged from on 11/28 and 11/09. Pt is active at at [facility], [facility], and [facility]. CM reviewed chart, last admission pt was talking about moving to [place]. Pt reports he still is sick so hasn't left because he doesn't have medicaid there. CM notified [facility] that pt was hospitalized ([phone]). Pt reports he has completed coordinated entry and has a bed reserved at [facility] and would like to return there at discharge. CM emailed Edy from [facility] to confirm pt's reserved bed, awaiting response. CM submit referral for [facility]. CM to follow. Plan: TBD, likely [facility] once medically stable; CM to coordinate with collaterals for discharge planning. Date Signed: 12/04/2018 09:35 AM Electronically Signed By:ANIBAL Sparrow
[2018-12-05] MEDS: methylPREDNISolone SOD SUCC 125 MG/2 ML VIAL IVP SCH (10:40)
[2018-12-05] MEDS: predniSONE 20 MG TAB PO SCH (10:57)
[2018-12-05] MEDS: OXYCODONE/APAP 5/325 TAB PO PRN ×2 (10:57→18:04)
[2018-12-05] MEDS: FLUTICASONE NASAL 120 SPRAYS/16 GM MDI EACHNARE SCH (10:57)
--- NOTE | 2018-12-05 11:43 | PDINTPN ---
Top Cager Progress Note Assessment/Plan: Assessment: COPD exacerbation: Improving Bronchitis History of ongoing tobacco abuse Homelessness Chronic pain syndrome Systemic hypertension: On carvedilol and amlodipine Schizophrenia Homelessness: [facility] Plan: Will change to oral medications today. Continue doxycycline for a total of 7 days, D/C Solu-Medrol and start prednisone at 59 with plan for a slow taper. Continue nebulized treatments. Start metered-dose inhalers. Can transfer to a medical-surgical bed today. 25 min of critical care time spent directly with the patient. Discussed with nursing, respiratory, hospitalist. Subjective: Feels better, breathing better, less short of breath. Less pain related to his feet and ankles Objective: Vital Signs Temp Pulse Resp BP Pulse Ox 36.6 C 80 16 132/90 H 93 12/05/18 08:08 12/05/18 08:08 12/05/18 08:08 12/05/18 08:08 12/05/18 08:08 12/04/18 12/05/18 12/06/18 05:59 05:59 05:59 Intake Total 3469 3266 Output Total 200 3150 Balance 3269 116 PT REJ 12/03/18 01:30 INR REJ 12/03/18 01:30 Physical Exam - Physical Exam General Appearance: alert, no apparent distress, obese EENT: other (Nasal cannula at 2-3 L) Neck: normal inspection Respiratory: decreased breath sounds (Bilaterally.), crackles (Few rales at the bases), wheezing (Rare end expiratory wheezes present), prolonged expiration, No rhonchi Cardiac/Chest: regular rate, rhythm, No gallop Abdomen: normal bowel sounds, non-tender, soft (Obese) Skin: normal color, warm/dry Extremities: No pedal edema Neuro/Psych: no motor/sensory deficits, No cognition abnormalities ICD10 Worksheet Patient Problems: Problems Problem Status Onset Schizoaffective disorder, bipolar type Acute Anxiety Acute RANDAL (acute kidney injury) Acute Nausea vomiting and diarrhea Acute Alcoholism Acute Hyponatremia Acute Leukocytosis Acute Elevated bilirubin Acute Hypokalemia Acute Lactic acidosis Acute Alcohol intoxication Acute Leg edema Acute Hand edema Acute Pneumonia Acute Chronic obstructive pulmonary disease with acute exacerbation Acute Pneumonia Acute Leukocytosis Acute Diarrhea Acute Bilateral knee pain Acute Bilateral ankle pain Acute Chronic alcoholism Acute Gravely disabled Acute Alcohol withdrawal Acute Bronchitis Acute Blood bacterial culture positive Acute Chest pain Acute Acute bronchitis Acute Hypertension Acute Alcoholic intoxication without complication Acute Verbalizes suicidal thoughts Acute Homicidal thoughts Acute Malingering Acute COPD exacerbation Acute Dyspnea Acute
[2018-12-05] MEDS ORDERED: ALBUTEROL 60 PUFFS/8 GM MDI IH PRN (11:50)
[2018-12-05] MEDS: NICOTINE POLACRILEX 2 MG GUM B PRN ×3 (13:22→19:20)
--- NOTE | 2018-12-05 13:29 | CPEKG ---
Test Reason : OPEN Blood Pressure : / mmHG Vent. Rate : 112 BPM Atrial Rate : 112 BPM P-R Int : 128 ms QRS Dur : 105 ms QT Int : 347 ms P-R-T Axes : 052 062 056 degrees QTc Int : 474 ms Sinus tachycardia Left atrial enlargement Confirmed by Markell Barnes ([id number]) on 12/05/2018 1:29:06 PM Referred By: Jane Patricio Confirmed By:Markell Barnes
[2018-12-05] MEDS: FLUTICASONE/SALMETER 250/50MCG DISKUS IH SCH ×2 (13:57→20:02)
--- NOTE | 2018-12-05 15:25 | HOSPPROG ---
Hospitalist Progress Note Assessment/Plan: 63 yo M w copd here w increased work of breathing copd: cxr w atelectasis (interp by me) agree w pred, doxy, nebs, guaifenesin tobacco use: is decreasing his cigarette use schizoaffective: well compsenated dispo: inpt Subjective: case d/w dr shay. lung exam improved Objective: Vital Signs Temp Pulse Resp BP Pulse Ox 36.6 C 80 16 132/90 H 93 12/05/18 08:08 12/05/18 08:08 12/05/18 08:08 12/05/18 08:08 12/05/18 08:08 12/04/18 12/05/18 12/06/18 05:59 05:59 05:59 Intake Total 3469 3266 Output Total 200 3150 300 Balance 3269 116 -300 PT REJ 12/03/18 01:30 INR REJ 12/03/18 01:30 - Physical Exam Constitutional: no apparent distress, appears nourished Eyes: PERRL, anicteric sclera Ears, Nose, Mouth, Throat: moist mucous membranes, hearing normal Cardiovascular: regular rate and rhythym, no murmur, rub, or gallop Respiratory: no respiratory distress, other (still w rhinchi and wheezes but much improved from yesterday) Gastrointestinal: normoactive bowel sounds, soft, non-tender abdomen Genitourinary: no bladder fullness, No lopez in urethra Skin: warm, normal color Musculoskeletal: full muscle strength, no muscle tenderness Neurologic: AAOx3 ICD10 Worksheet Patient Problems: Problems Problem Status Onset Dyspnea Acute RANDAL (acute kidney injury) Acute Acute bronchitis Acute Alcohol intoxication Acute Alcohol withdrawal Acute Alcoholic intoxication without complication Acute Alcoholism Acute Anxiety Acute Bilateral ankle pain Acute Bilateral knee pain Acute Blood bacterial culture positive Acute Bronchitis Acute COPD exacerbation Acute Chest pain Acute Chronic alcoholism Acute Chronic obstructive pulmonary disease with acute exacerbation Acute Diarrhea Acute Elevated bilirubin Acute Gravely disabled Acute Hand edema Acute Homicidal thoughts Acute Hypertension Acute Hypokalemia Acute Hyponatremia Acute Lactic acidosis Acute Leg edema Acute Leukocytosis Acute Leukocytosis Acute Malingering Acute Nausea vomiting and diarrhea Acute Pneumonia Acute Pneumonia Acute Schizoaffective disorder, bipolar type Acute Verbalizes suicidal thoughts Acute
[2018-12-05] MEDS: oxyCODONE IR 5 MG TAB PO PRN (22:42)
[2018-12-06] MEDS: IPRATROPIUM/ALBUTEROL 3 ML DEYVIAL IH SCH ×4 (05:30→21:53)
[2018-12-06] MEDS: ONDANSETRON DISINTEGRATING 4 MG TAB PO PRN (06:06)
[2018-12-06] MEDS: oxyCODONE IR 5 MG TAB PO PRN ×4 (06:07→19:37)
[2018-12-06] MEDS: NICOTINE POLACRILEX 2 MG GUM B PRN ×3 (06:54→14:55)
[2018-12-06] MEDS: ENOXAPARIN 40 MG/0.4 ML SYR SC SCH (07:54)
[2018-12-06] MEDS: DOXYCYCLINE HYCLATE 100 MG CAP/TAB PO SCH ×2 (07:54→19:37)
[2018-12-06] MEDS: predniSONE 20 MG TAB PO SCH (07:55)
[2018-12-06] MEDS: CARVEDILOL 3.125 MG TAB PO SCH ×2 (07:55→17:21)
[2018-12-06] MEDS: guaiFENesin 600 MG TAB.ER PO SCH ×2 (07:56→19:37)
--- NOTE | 2018-12-06 08:49 | HOSPPROG ---
Hospitalist Progress Note Assessment/Plan: 63 yo M w copd here w increased work of breathing. First encounter, chart reviewed. *copd: cxr w atelectasis -prednisone, doxy, nebs *tobacco use: is decreasing his cigarette use *schizoaffective: well compensated *htn -Coreg and amlodipine *homelessness -patient says he has a home in [place] and a ticket to return there on December 16; told me this on his last admission but was to go there after that discharge dispo: inpt, should be closely f/u with Dr Valverde Subjective: Liborio said he is having some ongoing nausea this morning. Objective: Vital Signs Temp Pulse Resp BP Pulse Ox 36.7 C 90 16 155/98 H 92 12/06/18 07:49 12/06/18 07:49 12/06/18 07:49 12/06/18 07:49 12/06/18 07:49 12/05/18 12/06/18 12/07/18 05:59 05:59 05:59 Intake Total 3266 Output Total 3150 300 Balance 116 -300 PT REJ 12/03/18 01:30 INR REJ 12/03/18 01:30 - Physical Exam Constitutional: no apparent distress, appears nourished Eyes: PERRL Ears, Nose, Mouth, Throat: hearing normal Cardiovascular: regular rate and rhythym Respiratory: reduced air movement, expiratory wheeze, bronchial breath sounds Skin: warm Musculoskeletal: full muscle strength Neurologic: AAOx3 Psychiatric: interacting appropriately ICD10 Worksheet Patient Problems: Problems Problem Status Onset Dyspnea Acute RANDAL (acute kidney injury) Acute Acute bronchitis Acute Alcohol intoxication Acute Alcohol withdrawal Acute Alcoholic intoxication without complication Acute Alcoholism Acute Anxiety Acute Bilateral ankle pain Acute Bilateral knee pain Acute Blood bacterial culture positive Acute Bronchitis Acute COPD exacerbation Acute Chest pain Acute Chronic alcoholism Acute Chronic obstructive pulmonary disease with acute exacerbation Acute Diarrhea Acute Elevated bilirubin Acute Gravely disabled Acute Hand edema Acute Homicidal thoughts Acute Hypertension Acute Hypokalemia Acute Hyponatremia Acute Lactic acidosis Acute Leg edema Acute Leukocytosis Acute Leukocytosis Acute Malingering Acute Nausea vomiting and diarrhea Acute Pneumonia Acute Pneumonia Acute Schizoaffective disorder, bipolar type Acute Verbalizes suicidal thoughts Acute
[2018-12-06] MEDS: FLUTICASONE/SALMETER 250/50MCG DISKUS IH SCH ×2 (10:30→21:55)
[2018-12-06] MEDS: FLUTICASONE NASAL 120 SPRAYS/16 GM MDI EACHNARE SCH (10:32)
[2018-12-06] MEDS: TIOTROPIUM INHALER 18 MCG/DOSE 5 DOSE/MDI IH SCH (10:34)
[2018-12-06] MEDS ORDERED: IBUPROFEN 200 MG TAB PO PRN (10:42)
--- NOTE | 2018-12-06 10:48 | ASMTCMCOM ---
CM Note CM Note Notes: Pts case discussed w/ Martine Borja NP. CM spoke to Edy at the group home and he reports that pt can return to his reserved bed when he is medically stable to d/c from the hospital. All pt has to bring is his d/c paperwork. Pt reports that he has a flight to [place] on 12/16 around 9AM. Pt will most likely d/c to group home bed. CM to follow. Plan: [facility]/[place] Date Signed: 12/06/2018 10:47 AM Electronically Signed By:ANIBAL Gonzalez
[2018-12-07] MEDS: oxyCODONE IR 5 MG TAB PO PRN ×4 (05:02→20:13)
[2018-12-07] MEDS: IPRATROPIUM/ALBUTEROL 3 ML DEYVIAL IH SCH ×4 (06:07→22:49)
[2018-12-07] MEDS: CARVEDILOL 3.125 MG TAB PO SCH ×2 (08:41→18:04)
[2018-12-07] MEDS: ENOXAPARIN 40 MG/0.4 ML SYR SC SCH (08:41)
[2018-12-07] MEDS: DOXYCYCLINE HYCLATE 100 MG CAP/TAB PO SCH ×2 (08:42→20:13)
[2018-12-07] MEDS: guaiFENesin 600 MG TAB.ER PO SCH ×2 (08:42→20:12)
[2018-12-07] MEDS: predniSONE 20 MG TAB PO SCH (08:43)
[2018-12-07] MEDS: ONDANSETRON DISINTEGRATING 4 MG TAB PO PRN (08:43)
[2018-12-07] MEDS: FLUTICASONE/SALMETER 250/50MCG DISKUS IH SCH ×2 (08:48→22:50)
[2018-12-07] MEDS: FLUTICASONE NASAL 120 SPRAYS/16 GM MDI EACHNARE SCH (08:48)
[2018-12-07] MEDS: TIOTROPIUM INHALER 18 MCG/DOSE 5 DOSE/MDI IH SCH (10:04)
--- NOTE | 2018-12-07 12:13 | HOSPPROG ---
Hospitalist Progress Note Assessment/Plan: 63 yo M w copd here w increased work of breathing. *copd: cxr w atelectasis -prednisone, doxy, nebs *tobacco use: is decreasing his cigarette use *schizoaffective: well compensated *htn -Coreg and amlodipine *homelessness -patient says he has a home in [place] and a ticket to return there on December 16; told me this on his last admission but was to go there after that discharge dispo: pending, patient says he is unable to walk to get outside to take a cab [facility]. Encouraged him to ambulate frequently to get strong enough to walk through [place] soon, he is very motivated to fly to [place]. Instructed patient on exercises to help him get stronger. Subjective: Liborio is feeling weak and worried he is unable to walk safely. Objective: Vital Signs Temp Pulse Resp BP Pulse Ox 36.6 C 83 16 173/108 H 91 L 12/07/18 07:59 12/07/18 10:05 12/07/18 10:05 12/07/18 09:58 12/07/18 10:05 12/06/18 12/07/18 12/08/18 05:59 05:59 05:59 Intake Total 800 Output Total 300 Balance -300 800 PT REJ 12/03/18 01:30 INR REJ 12/03/18 01:30 - Physical Exam Constitutional: appears nourished, not in pain, obese Eyes: PERRL Ears, Nose, Mouth, Throat: hearing normal Cardiovascular: regular rate and rhythym Respiratory: no respiratory distress, expiratory wheeze Skin: warm Musculoskeletal: generalized weakness Neurologic: AAOx3 Psychiatric: interacting appropriately ICD10 Worksheet Patient Problems: Problems Problem Status Onset Dyspnea Acute RANDAL (acute kidney injury) Acute Acute bronchitis Acute Alcohol intoxication Acute Alcohol withdrawal Acute Alcoholic intoxication without complication Acute Alcoholism Acute Anxiety Acute Bilateral ankle pain Acute Bilateral knee pain Acute Blood bacterial culture positive Acute Bronchitis Acute COPD exacerbation Acute Chest pain Acute Chronic alcoholism Acute Chronic obstructive pulmonary disease with acute exacerbation Acute Diarrhea Acute Elevated bilirubin Acute Gravely disabled Acute Hand edema Acute Homicidal thoughts Acute Hypertension Acute Hypokalemia Acute Hyponatremia Acute Lactic acidosis Acute Leg edema Acute Leukocytosis Acute Leukocytosis Acute Malingering Acute Nausea vomiting and diarrhea Acute Pneumonia Acute Pneumonia Acute Schizoaffective disorder, bipolar type Acute Verbalizes suicidal thoughts Acute
[2018-12-07] MEDS: NICOTINE POLACRILEX 2 MG GUM B PRN (18:22)
[2018-12-08] MEDS ORDERED: BENZONATATE 100 MG CAP PO SCH
[2018-12-08] MEDS ORDERED: predniSONE 20 MG TAB PO SCH
[2018-12-08] MEDS ORDERED: DOXYCYCLINE HYCLATE 100 MG CAP/TAB PO SCH
[2018-12-08] MEDS: oxyCODONE IR 5 MG TAB PO PRN ×3 (00:08→11:23)
[2018-12-08] MEDS: ONDANSETRON DISINTEGRATING 4 MG TAB PO PRN (00:08)
[2018-12-08] MEDS: IPRATROPIUM/ALBUTEROL 3 ML DEYVIAL IH SCH ×2 (05:08→09:18)
[2018-12-08] MEDS: FLUTICASONE/SALMETER 250/50MCG DISKUS IH SCH (09:18)
[2018-12-08] MEDS: TIOTROPIUM INHALER 18 MCG/DOSE 5 DOSE/MDI IH SCH (09:18)
[2018-12-08] MEDS: predniSONE 20 MG TAB PO SCH (09:36)
[2018-12-08] MEDS: DOXYCYCLINE HYCLATE 100 MG CAP/TAB PO SCH (09:36)
[2018-12-08] MEDS: guaiFENesin 600 MG TAB.ER PO SCH (09:36)
[2018-12-08] MEDS: CARVEDILOL 3.125 MG TAB PO SCH (09:37)
[2018-12-08] MEDS: ENOXAPARIN 40 MG/0.4 ML SYR SC SCH (09:38)
[2018-12-08 09:42] VITALS: BP 143/83
--- NOTE | 2018-12-08 10:20 | HOSPPROG ---
Hospitalist Progress Note Assessment/Plan: 63 yo M w copd here w increased work of breathing. *copd: cxr w atelectasis -prednisone, doxy, nebs *tobacco use: is decreasing his cigarette use *schizoaffective: well compensated *htn -Coreg and amlodipine *homelessness -patient says he has a home in [place] and a ticket to return there on December 16; told me this on his last admission but was to go there after that discharge dispo: he is ambulating well, able to walk around the unit several times. DC to the skilled nursing. Subjective: Liborio has no complaints, would like to stay through the day and then go to the skilled nursing tonight. Objective: Vital Signs Temp Pulse Resp BP Pulse Ox 36.8 C 101 H 18 143/83 H 90 L 12/08/18 07:10 12/08/18 09:37 12/08/18 09:21 12/08/18 09:37 12/08/18 09:21 12/07/18 12/08/18 12/09/18 05:59 05:59 06:59 Intake Total 800 500 Balance 800 500 PT REJ 12/03/18 01:30 INR REJ 12/03/18 01:30 - Physical Exam Constitutional: no apparent distress, appears nourished, not in pain Eyes: PERRL Ears, Nose, Mouth, Throat: hearing normal Cardiovascular: regular rate and rhythym Respiratory: no respiratory distress, expiratory wheeze, rhonchi (few scattered) Gastrointestinal: normoactive bowel sounds Skin: warm Musculoskeletal: full muscle strength Neurologic: AAOx3 Psychiatric: interacting appropriately ICD10 Worksheet Patient Problems: Problems Problem Status Onset Dyspnea Acute RANDAL (acute kidney injury) Acute Acute bronchitis Acute Alcohol intoxication Acute Alcohol withdrawal Acute Alcoholic intoxication without complication Acute Alcoholism Acute Anxiety Acute Bilateral ankle pain Acute Bilateral knee pain Acute Blood bacterial culture positive Acute Bronchitis Acute COPD exacerbation Acute Chest pain Acute Chronic alcoholism Acute Chronic obstructive pulmonary disease with acute exacerbation Acute Diarrhea Acute Elevated bilirubin Acute Gravely disabled Acute Hand edema Acute Homicidal thoughts Acute Hypertension Acute Hypokalemia Acute Hyponatremia Acute Lactic acidosis Acute Leg edema Acute Leukocytosis Acute Leukocytosis Acute Malingering Acute Nausea vomiting and diarrhea Acute Pneumonia Acute Pneumonia Acute Schizoaffective disorder, bipolar type Acute Verbalizes suicidal thoughts Acute
[2018-12-08] MEDS: FLUTICASONE NASAL 120 SPRAYS/16 GM MDI EACHNARE SCH (11:25)
--- NOTE | 2018-12-08 13:13 | GDS ---
[f rep st] DISCHARGE SUMMARY DISCHARGE DIAGNOSES: 1. Chronic obstructive pulmonary disease exacerbation. 2. Tobacco use. 3. Schizoaffective disorder. 4. Hypertension. 5. Homelessness. HISTORY OF PRESENT ILLNESS: Briefly, the patient is a 63-year-old gentleman, well-known to [facility]. He has a history significant for COPD, schizoaffective disorder, anxiety, continued tobacco dependence, and history of alcohol dependence in remission, who presented to the ER with com plaints of sudden-onset shortness of breath. His oxygen levels on admission were in the low 80s and he was tachypneic, and he had a fever at that time. He was treated with antibiotics. It was noted t hat he had severe sepsis on admission with an elevated lactate. This has all since resolved. He noa l be discharged to the fpc today. He plans to move to [place] in approximately a week. HOSPITAL COURSE: 1. COPD. His chest x-ray noted that he has atelectasis. He was treated with prednisone. He will c ontinue doxycycline for another day and a half. 2. Nicotine dependence. This is quite significant. He is actually anxious to be discharged, so he can smoke. 3. Schizoaffective disorder, well-compensated. 4. Hypertension. Blood pressure stable this morning. 5. Homelessness. Case Management has reserved a fpc bed for him. DISCHARGE CONDITION: Stable. Blood pressure is 143/83, heart rate of 89, respiratory rate of 18, O2 sats on room air 94%, temperature 36.8 Celsius. MEDICATIONS AT DISCHARGE: Please see the EMR. DISCHARGE INSTRUCTIONS: 1. I am recommending he wear a mask at the fpc if other people are sick. 2. The hospital will fill his prescriptions for antibiotics, prednisone, and cough medication. He i s not sure if he has other medications. A prescription was sent to [facility] to make sure he has those medications. 3. Encouraged him to stay strong by ambulating. He is anxious to travel back to the [place] area. Greater than 30 minutes discharging and coordinating his care. /[id number]/MODL
--- NOTE | 2018-12-08 13:55 | ASDISCHSUM ---
Discharge Information Plan Status:Homeless/[facility] Medically Cleared to Leave:12/07/2018 Discharge Date:12/07/2018 CM D/C Disposition:Streets (Homeless) ADT D/C Disposition:Home, Routine, Self-Care Projected Discharge Date:12/07/2018 Transportation at D/C:Medicaid Transportation Discharge Delay Reason: Follow-Up Date:12/07/2018 Discharge Slot: Final Diagnosis:COPD exac Placement Information Patient Contact Information Contact Name:CELESTINO Relationship: Address: Home Phone: Work Phone: City: Alternate Phone: State/Caption Data Code: Email: Financial Information Financial Class:Medicaid Primary Plan Desc:[employer] Primary Plan Number:[id number] Secondary Plan Desc: Secondary Plan Number: Assessment Information LACE LACE Acuity / Level of Answers: Yes Care: Did the patient have an inpatient admission? Comorbidities - select Answers: Chronic pulmonary disease all that apply Opioid dependence / Chronic pain Other Notes: Hep C; HTN # of Emergency department Answers: 5-8 visits in the last 6 months Social determinants Answers: History of substance abuse (ETOH, street drugs, prescription drugs, etc.) Homelessness (street, alf) Mental health diagnosis (anxiety, depression, pers onality disorders, etc.) Score: 23 Date Signed: 12/04/2018 02:56 PM Electronically Signed By:Josselin Blake [facility] CM Progress Note CM Note CM Note Notes: Pt is a 63 yo M, familiar to [facility]. Pt has history of COPD, schizoaffective disorder, anxiety, tabacco dependence , and ETOH dependence but reports last drink was 2 months ago; denies any active problems with ETOH use at this time. CM offered resources, pt denied. Pt was last discharged from on 11/28 and 11/09. Pt is active at at [facility], [facility], and [facility]. CM reviewed chart, last admission pt was talking about moving to [place]. Pt reports he still is sick so hasn't left because he doesn't have medicaid there. CM notified [facility] that pt was hospitalized ([phone]). Pt reports he has completed coordinated entry and has a bed reserved at [facility] and would like to return there at discharge. CM emailed Edy from [facility] to confirm pt's reserved bed, awaiting response. CM [facility]. CM to follow. Plan: D, likely [facility] once medically stable; CM to coordinate with collaterals for discharge planning. Date Signed: 12/04/2018 09:35 AM Electronically Signed By:ANIBAL Sparrow [facility] Progress Note CM Note CM Note Notes: Pts case discussed w/ Martine Borja NP. CM spoke to Edy at the alf and he reports that pt can return to his reserved bed when he is medically stable to d/c from the hospital. All pt has to bring is his d/c paperwork. Pt reports that he has a flight to [place] on 12/16 around 9AM. Pt will most likely d/c to alf bed. CM to follow. Plan: [facility]/[place] Date Signed: 12/06/2018 10:47 AM Electronically Signed By:ANIBAL Gonzalez Case Management Discharge Plan Note Case Management Discharge Discharge Order Complete? Answers: Yes Patient to Obtain Answers: via MAP Medications Transportation Arranged Answers: Other Notes: [facility] will Pick (Date 12/08/2018 12:00 AM & Time) Family Notified Answers: No Notes: no family Discharge Comments Notes: Pt to discharge to his reserved bed at the alf. Pt knows to keep d/c paperwork and wrist band in order to obtain priority. [facility] provided to [facility] close to the alf per pt. Pt also requested CM make appoint at [facility] for follow up but the clinic was not answering phones over the weekend, unable to leave message. No further CM needs noted at this time. Date Signed: 12/08/2018 01:53 PM Electronically Signed By:Bernice Lo Intervention Information
== END 2018-12-08 14:13 | disposition home or self-care (01) | DRG 140 ==
LOC: EDUNIT# → F2N 12-04 03:30 → F3E 12-05 20:25
PROVIDERS: ADMIT Family Medicine; ATTEND Family Medicine
DX: J44.1 Chronic obstructive pulmonary disease with (acute) exacerbation (principal); F25.9 Schizoaffective disorder, unspecified; F17.200 Nicotine dependence, unspecified, uncomplicated; I10 Essential (primary) hypertension; F41.9 Anxiety disorder, unspecified; F10.21 Alcohol dependence, in remission; N40.0 Benign prostatic hyperplasia without lower urinary tract symptoms; E78.5 Hyperlipidemia, unspecified; Z59.0 Homelessness
CPT/HCPCS: 96374; 97161-GP; 97165-GO; 97535-GO; G0480; J0692; J1650; J2060; J2270; J2930; J7512

== ENCOUNTER 2018-12-15 16:58 | Emergency (ER) | payer MEDICAID ==
--- NOTE | 2018-12-15 16:56 | EDPHY ---
H & P Allergies/Adverse Reactions: ketorolac [From Toradol] Allergy (Severe, Verified 11/21/18 03:31) Anaphylaxis levofloxacin [From Levaquin] Allergy (Severe, Verified 11/21/18 03:31) tendinopathy lisinopril Allergy (Severe, Verified 11/21/18 03:31) Anaphylaxis Home Medications: Medication Instructions Recorded Acetaminophen [Tylenol 325mg (*)] 650 mg PO Q4HRS PRN tab 11/09/18 Fluticasone Nasal [Flonase Nasal 1 sprays EACHNARE DAILY mdi 11/09/18 [place]] Nicotine Polacrilex [Nicorette gum 2 mg B PRN PRN gum 11/09/18 (*)] Beclomethasone Qvar 40 [Qvar 40 1 inh IH BID #1 mdi 11/26/18 Redihaler (*)] Benzonatate [Tessalon Pearles] 100 mg PO TID PRN #30 cap 11/28/18 Sodium Cl Nasal [Isabella [place] (*)] 1 spray EACHNARE PRN PRN btl 11/28/18 guaiFENesin [Mucinex 600 MG (*)] 1,200 mg PO BID tab.er 11/28/18 guaiFENesin/DEXTROMETHORPHAN 10 ml PO Q4HRS PRN ml 11/28/18 [Robitussin Dm Oral Liquid (*)] predniSONE 40 mg PO DAILY #14 tablet 11/28/18 Benzonatate [Tessalon Pearles] 100 mg PO TID PRN #30 cap 12/08/18 Carvedilol [Coreg (*)] 3.125 mg PO BIDMEAL #60 tab 12/08/18 Doxycycline Hyclate [Vibramycin 100 mg PO BID #5 capsule 12/08/18 100 MG (*)] Tiotropium Inhaler [Spiriva 18 mcg IH DAILY #1 mdi 12/08/18 Handihaler] amLODIPine BESYLATE [Norvasc 10 mg 10 mg PO DAILY #30 tab 12/08/18 (*)] predniSONE 40 mg PO DAILY #12 tablet 12/08/18 Medical Decision Making ED Course/Re-evaluation: CHIEF COMPLAINT: Alcohol intoxication. HISTORY OF PRESENT ILLNESS: The patient is a chronic alcoholic living on [address]. Patient drinks on a daily basis and obtains whatever alcohol is available. Patient was found by bystanders who called EMS system. Patient has had multiple ER visits over the last several years for the same complaint. Patient denies any injuries denies loss of consciousness denies any recent trauma. Patient denies co-ingestion. Patient denies suicidal or homicidal behavior. REVIEW OF SYSTEMS: A comprehensive 10 system review of systems is otherwise negative aside from elements mentioned in the history of present illness and medical decision making. PHYSICAL EXAM: General Appearance: Alert, well hydrated, appropriate, and non-toxic appearing. Head: Atraumatic without scalp tenderness or obvious injury Eyes: Pupils equal, round, reactive to light and accommodation, EOMI, no trauma , no injection. Ears: Clear bilaterally, no perforation, normal landmarks Nose: Atraumatic, no rhinorrhea, clear. Throat: There is no erythema or exudates, no lesions, normal tonsils, mucus membranes moist. Neck: Supple, 2+ carotid upstroke, nontender, no lymphadenopathy. Respiratory: No retractions, no distress, no wheezes, and no accessory muscle use. Lungs are clear to auscultation bilaterally. Cardiovascular: Regular rate and rhythm, no murmurs, rubs, or gallops. Bilateral carotid, radial, dorsalis pedis, and posterior tibial pulses intact. Good capillary refill all extremities. Gastrointestinal: Abdomen is soft, nontender, non-distended, no masses, no rebound, no guarding, no peritoneal signs. Musculoskeletal: Normal active ROM of all extremities, atraumatic. Neurological: Alert, appropriate, and interactive. The patient has normal DTRs and non-focal cranial nerves, motor, sensory, and cerebellar exam. Skin: No rashes, good turgor, no nodules on palpation. PAST MEDICAL HISTORY: Alcoholism, liver disease PAST SURGICAL HISTORY: Noncontributory SOCIAL HISTORY: Single, not employed, abuses alcohol, smokes weed, has a home DIAGNOSTICS/PROCEDURES/CRITICAL CARE TIME: None warranted DIFFERENTIAL DIAGNOSIS: Includes but is not limited to alcohol, drugs, alcohol and drugs MEDICAL DECISION MAKING: I serially examined this patient since the patient's arrival here in the emergency department. The patient continues to become more and more sober with each examination. I serially questioned the patient and the patient's story given initially has not changed. The patient still denies any trauma, any head injury, and any illicit drug use. At this point, the patient is walking the department freely and is clinically sober. We're discharging the patient to the [facility] in stable condition. Departure - Departure Disposition: Home, Routine, Self-Care Clinical Impression: Polysubstance abuse Condition: Good Instructions: Abuse of Alcohol (ED)
[2018-12-15 17:05] VITALS: BP 98/66
== END 2018-12-15 17:36 | disposition home or self-care (01) ==
LOC: EDUNIT#
DX: F19.10 Other psychoactive substance abuse, uncomplicated (principal); F10.920 Alcohol use, unspecified with intoxication, uncomplicated; K76.9 Liver disease, unspecified